=== PATIENT | male | born 1930 | race Caucasian/White ===

== ENCOUNTER 2016-11-05 08:46 | Inpatient (IN) | payer OTHER ==
--- NOTE | 2016-11-05 08:57 | PDOC ---
History of Present Illness - General Chief Complaint: Nausea/Vomiting Stated Complaint: N/V/D Time Seen by Provider: 11/05/16 08:52 - History of Present Illness Initial Comments: 11/05/16 08:52 Chief complaint: The patient has no complaints. However, his states that he awoke this morning confused, mildly disoriented, and unable to get out of bed or ambulate. History of present illness: He was in his usual state of health when he went to sleep last night. This morning he knew his name and where he was, but seemed confused about the time and kept repeating phrases. Review of systems: His states that he has had intermittent abdominal pain, difficulty swallowing solid food, with a sensation that the food was getting stuck in his chest, and experiencing vomiting. These symptoms have been present for several weeks and have been discussed with his primary physician, workup is in progress. He had 3 loose stools this morning. There's been no hematemesis melena or bloody stool. No fever or chills, URI symptoms, sore throat, cough, chest pain, shortness of breath, visual or focal neurologic symptoms, unsteadiness of gait. No dysuria frequency urgency or hesitancy. Remainder systems reviewed and found to be negative Past medical history: Insulin-dependent diabetes, GERD, prostate cancer with bone metastases,high blood pressure, chronic back pain requiring the use of a fentanyl patch, Evaluated with MRIs in the past. 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 No other surgeries. Social history: No tobacco alcohol or nonprescription drugs. Until this morning , fully ambulatory and care for himself Family history: Reviewed and noncontributory including early coronary artery disease, neurologic disease including aneurysms, metabolic disease including diabetes, and cancer Physical exam: Alert and oriented 3, well-developed well-nourished, mild distress secondary to abdominal pain, but cheerful and cooperative Temperature 100.8, remainder of vital signs stable Pale but nonicteric. Head atraumatic. PERRLA 3 mm, fundi benign. ENT clear Neck supple without bruit mass or nodes Lungs clear to P&A, but there is questionable dullness at the right base posteriorly CV S1 and S2 normal without murmur rub or gallop pulses full and symmetric no JVD or edema 90 and regular Abdomen mildly distended. Bowel sounds present and normal in character. There is moderate diffuse tenderness, with some voluntary guarding, and the suggestion of rebound in the right mid abdomen and right lower quadrant. Rectal exam prostate 3+ enlarged, firm, nontender, without nodules. Stool light brown, guaiac-negative. No other masses or tenderness Neurological C2 to 12 intact. Strength full and symmetric. No focal sensory or motor deficits. Not assessed Extremities no CCE Skin clear, no rash, adequate turgor, but mucous membranes somewhat dry Impression: Mental status changes, according to the , and abdominal pain. Recent history of difficulty swallowing solid food and intermittent vomiting. Distended abdomen and suggestive of peritoneal irritation. The mental status changes are nontraumatic, and may be due to infection or metabolic disease derangement. Abdominal signs and symptoms suggestive of possible appendicitis or diverticulitis. Metastatic prostate cancer is also consideration Plan: Laboratory and infection workup, had an abdominal CT, further evaluation depending on results. Plan: 11/05/16 10:16 11/05/16 10:21 11/05/16 14:12 Past History - Past Medical History Allergies/Adverse Reactions: Allergies Allergy/AdvReac Type Severity Reaction Status Date / Time No Known Drug Allergies Allergy Verified 11/05/16 08:48 Home Medications: Ambulatory Orders Pregabalin [Lyrica -] 100 mg PO TID 08/03/14 Docusate Sodium [Colace -] 100 mg PO PRN PRN 04/08/16 Insulin Glargine,Hum.rec.anlog [Lantus Solostar PEN (NF)] 16 units SQ DAILY 12/20 Venlafaxine HCl ER [Effexor Xr -] 37.5 mg PO DAILY 04/08/16 Fentanyl 150 mcg TD Q72H 11/05/16 Omeprazole 10 mg PO DAILY 11/05/16 Ramipril [Altace] 2.5 mg PO Q48H 11/05/16 Ranitidine HCl [Zantac] 150 mg PO DAILY 11/05/16 Anemia: No Asthma: No Cancer: No (PROSTATE WITH METS TO SPINE) Cardiac Disorders: No CVA: No COPD: Yes (PE many years ago) CHF: No Dementia: No Diabetes: Yes (TYPE I) GI Disorders: No Disorders: No HTN: No Hypercholesterolemia: No Liver Disease: No Psychiatric Problems: Yes (ANXIETY) Seizures: No Thyroid Disease: No - Surgical History Abdominal Surgery: Yes (ABD ADHESIONS) Appendectomy: Yes Cardiac Surgery: No Cholecystectomy: No Lung Surgery: No Neurologic Surgery: No Orthopedic Surgery: Yes (SEVERAL BACK SXS, LAST 03/2016) - Psycho/Social/Smoking Cessation Hx Anxiety: No Suicidal Ideation: No Smoking Status: No Smoking History: Former smoker Have you smoked in the past 12 months: No Number of Cigarettes Smoked Daily: 0 If you are a former smoker, when did you quit?: 1984 Hx Alcohol Use: Yes (COCKTAIL X1 DAILY) Drug/Substance Use Hx: No Substance Use Type: None Hx Substance Use Treatment: No ED Treatment Course - LABORATORY CBC & Chemistry Diagram: 11/05/16 09:18 11/05/16 09:18 Medical Decision Making - Medical Decision Making 11/05/16 14:[address] negative CT of the abdomen and pelvis shows a partial bowel obstruction, uncertain etiology. The patient has had similar in the past, beginning after appendectomy many years ago, always resolving with conservative treatment, no other surgeries. 11/05/16 14:20 Patient nothing by mouth, maintenance fluids begun, Dr. ruelas until contacted for admission, Dr. Carranza for surgical consultation. Fentanyl patch removed, morphine begun for pain control. Zofran for nausea. *DC/Admit/Observation/Transfer Diagnosis at time of Disposition: Partial bowel obstruction - Discharge Dispostion Condition at time of disposition: Stable Admit: Yes
[2016-11-05 09:31] LABS: BASOPHIL 0.4 % (0-2.0); EOSINOPHIL 0.1 % (0-4.5); MEAN CELL VOLUME 96.8 fl (80-96); MEAN PLT VOLUME 7.7 fl (7.5-11.1); NEUTROPHILS 79.9 % (42.8-82.8); PLATELET COUNT 381 K/MM3 (134-434); WHITE BLOOD COUNT 5.1 K/mm3 (4.0-10.0)
[2016-11-05 09:47] LABS: INR 1.1 (0.82-1.09)
[2016-11-05 09:50] LABS: CPK(DFH) 21 IU/L (38-174)
[2016-11-05 09:51] LABS: ALK PHOS 126 U/L (32-92); ANION GAP 14 (8-16); BILIRUBIN,TOTAL 0.7 mg/dl (0.2-1.0); CALCIUM 9.3 mg/dl (8.4-10.2); CO2 22 mmol/L (22-28); CREATININE 1.1 mg/dl (0.6-1.3); GLUCOSE,RANDOM 251 mg/dl (74-106); SGOT/AST 35 U/L (10-42); SGPT/ALT 31 U/L (10-40); TOT PROT 6.7 g/dl (6.4-8.3)
[2016-11-05 10:10] LABS: TROPONIN I (DFP) < 0.03 ng/ml (0.03-0.50)
[2016-11-05 14:02] LABS: URINE APPEARANCE Clear; URINE BILIRUBIN 1+ (NEGATIVE); URINE BLOOD Negative (NEGATIVE); URINE GLUCOSE (UA) Negative (NEGATIVE); URINE KETONE 1+ (NEGATIVE); URINE LEUK ESTERASE Negative (NEGATIVE); URINE NITRITE Negative (NEGATIVE); URINE UROBILINOGEN 0.2 E.U/dl (0.2-1.0)
[2016-11-05 14:03] LABS: URINE COLOR YELLOW; URINE PROTEIN 1+ (NEGATIVE)
--- NOTE | 2016-11-05 14:11 | PDOC ---
[id number]/V/D Time Seen by Provider: 11/05/16 08:52 - History of Present Illness Initial Comments: 11/12/16 07:23 Chief complaint: Nausea vomiting and abdominal pain History of present illness: Patient with above symptoms for several days. History of bowel obstructions in the past, beginning after an appendectomy in early life. Always resolved with conservative treatment, no further surgery has been necessary. Patient is anorexic but he is having bowel movements and passing gas. Review of systems: No fever/chills, URI symptoms, sore throat, cough, chest pain , shortness of breath, dysuria or frequency, visual or focal neurologic symptoms , unsteadiness of gait Past medical history: Recurrent obstructions as noted above. Otherwise noncontributory Social/family history reviewed and noncontributory Physical exam: Alert and oriented, mild distress due to abdominal pain, but cheerful and cooperative Afebrile, vital signs stable No pallor or icterus. PERRLA, ENT clear Neck supple without bruit mass or nodes Chest clear CV regular without murmur rub or gallop Abdomen mildly distended, but bowel sounds present and normal in character. Soft without mass. There is mild diffuse tenderness to palpation, most notably in the periumbilical region. There is no guarding or rebound exam normal Neurological intact Extremities no CCE Skin clear, no rash, adequate turgor and mucous membranes Impression: Most likely this is a recurrent partial bowel obstruction, no signs of systemic toxicity. Patient has had an appendicitis. Other possibilities are diverticulitis, kidney stone. Plan: Labs and CT. Surgical evaluation. Nothing by mouth and fluids. Past History - Past Medical History Allergies/Adverse Reactions: Allergies Allergy/AdvReac Type Severity Reaction Status Date / Time No Known Drug Allergies Allergy Verified 11/05/16 08:48 Home Medications: Ambulatory Orders Pregabalin [Lyrica -] 100 mg PO TID 08/03/14 Docusate Sodium [Colace -] 100 mg PO PRN PRN 04/08/16 Insulin Glargine,Hum.rec.anlog [Lantus Solostar PEN (NF)] 16 units SQ DAILY 12/20 Venlafaxine HCl ER [Effexor Xr -] 37.5 mg PO DAILY 04/08/16 Fentanyl 150 mcg TD Q72H 11/05/16 Omeprazole 10 mg PO DAILY 11/05/16 Ramipril [Altace] 2.5 mg PO Q48H 11/05/16 Ranitidine HCl [Zantac] 150 mg PO DAILY 11/05/16 Anemia: No Asthma: No Cancer: No (PROSTATE WITH METS TO SPINE) Cardiac Disorders: No CVA: No COPD: Yes (PE many years ago) CHF: No Dementia: No Diabetes: Yes (TYPE I) GI Disorders: No Disorders: No HTN: No Hypercholesterolemia: No Liver Disease: No Psychiatric Problems: Yes (ANXIETY) Seizures: No Thyroid Disease: No - Surgical History Abdominal Surgery: Yes (ABD ADHESIONS) Appendectomy: Yes Cardiac Surgery: No Cholecystectomy: No Lung Surgery: No Neurologic Surgery: No Orthopedic Surgery: Yes (SEVERAL BACK SXS, LAST 03/2016) - Psycho/Social/Smoking Cessation Hx Anxiety: No Suicidal Ideation: No Smoking Status: No Smoking History: Former smoker Have you smoked in the past 12 months: No Number of Cigarettes Smoked Daily: 0 If you are a former smoker, when did you quit?: 1985 Information on smoking cessation initiated: No Hx Alcohol Use: Yes (COCKTAIL X1 DAILY) Drug/Substance Use Hx: No Substance Use Type: None Hx Substance Use Treatment: No *Physical Exam - Vital Signs Last Vital Signs Temp Pulse Resp BP Pulse Ox 100.8 F H 89 18 129/85 97 11/05/16 09:15 11/05/16 13:41 11/05/16 13:41 11/05/16 13:41 11/05/16 13:41 ED Treatment Course - LABORATORY CBC & Chemistry Diagram: 11/10/16 07:15 11/11/16 05:30 - ADDITIONAL ORDERS Additional order review: Laboratory Results 11/05/16 11/05/16 11/05/16 13:58 09:30 09:18 INR Sodium Potassium Chloride Carbon Dioxide Anion Gap BUN Creatinine Creat Clearance w eGFR Random Glucose Lactic Acid 2.128 H* Calcium Total Bilirubin AST ALT Alkaline Phosphatase Creatine Kinase Troponin I Total Protein Albumin Urine Color Yellow Urine Appearance Clear Urine pH 5.0 Ur Specific [place] 1.010 Urine Protein 1+ H Urine Glucose (UA) Negative Urine Ketones 1+ H Urine Blood Negative Urine Nitrite Negative Urine Bilirubin 1+ H Urine Urobilinogen 0.2 e.u/dl Ur Leukocyte Esterase Negative Stool Occult Blood Negative 01/11/05/16 11/05/16 09:18 09:18 09:18 INR 1.10 Sodium 135 L Potassium 4.7 Chloride 99 Carbon Dioxide 22 Anion Gap 14 BUN 20 H D Creatinine 1.1 Creat Clearance w eGFR > 60 Random Glucose 251 H D Lactic Acid Calcium 9.3 Total Bilirubin 0.7 AST 35 ALT 31 Alkaline Phosphatase 126 H D Creatine Kinase 21 L Troponin I < 0.03 L Total Protein 6.7 Albumin 3.0 L Urine Color Urine Appearance Urine pH Ur Specific [place] Urine Protein Urine Glucose (UA) Urine Ketones Urine Blood Urine Nitrite Urine Bilirubin Urine Urobilinogen Ur Leukocyte Esterase Stool Occult Blood 11/05/16 09:18 RBC 4.16 MCV 96.8 H MCHC 32.0 RDW 13.0 D MPV 7.7 Neutrophils % 79.9 Lymphocytes % 6.0 L D Monocytes % 13.6 H Eosinophils % 0.1 D Basophils % 0.4 - RADIOLOGY Radiology Studies Ordered: Category Date Time Status ABDOMEN & PELVIS CT WITH CONTR [CT] Stat CT Scan 11/05/16 11:[address] WITHOUT CONTRAST [CT] Stat CT Scan 11/05/16 11:16 Completed CHEST X-RAY PORTABLE* [RAD] Stat Radiology 11/05/16 09:25 Completed Medical Decision Making - Medical Decision Making 11/12/16 07:29 Patient CBC, chemistries, and urine showed no significant abnormalities. Abdominal x-rays, however, show distended bowel and CT scan shows possible partial obstruction. Surgical consultation obtained from hospitalist surgery team. Discussed the case with the surgical PA, who will present the patient to the surgical attending. Discussed admission with Dr. Salazar, hospitalist, who will assume primary care incoordinated surgical consultation. Patient remains clinically stable, pain is controlled, and he is doing IV fluids. *DC/Admit/Observation/Transfer Diagnosis at time of Disposition: Partial bowel obstruction - Discharge Dispostion Condition at time of disposition: Stable Decision to Admit order Date/Time: Decision to Admit Order Category Date Time Status Decision to Admit to Hospital Routine Admission 11/05/16 14:09 Active - Referrals - Patient Instructions - Post Discharge Activity
[2016-11-05] MEDS ORDERED: SODIUM CHLORIDE 1,000 ML IV SCH (14:15)
[2016-11-05] MEDS ORDERED: morphine CARPU-JECT 4 MG/1 ML DISP.SYRIN IVPUSH ONE (14:16)
[2016-11-05] MEDS ORDERED: ONDANSETRON 4 MG/2 ML VIAL IVPB ONE (14:21)
[2016-11-05] MEDS ORDERED: ONDANSETRON 4 MG/2 ML VIAL ONE (14:48)
[2016-11-05] MEDS ORDERED: morphine CARPU-JECT 10 MG/1 ML DISP.SYRIN ONE (14:48)
[2016-11-05] MEDS: SODIUM CHLORIDE 1,000 ML IV SCH (14:52)
--- NOTE | 2016-11-05 15:57 | CONSULT ---
Consultation: REQUESTING PROVIDER:General Surgery- CONSULT REQUEST: We have been asked to surgically evaluate this patient for abd pain/nausea. HISTORY OF PRESENT ILLNESS:The patient is a 86 yo male with a PMHX of metastatic prostate cancer. He comes to the ER today with his . She states that he was confused this am and had nausea x2, last night and this am. She is unaware of any c/o abdominal pain. He states that he had a bowel movment last pm and this am. His abd feels ok now, although he remains nauseated. He has been receiving treatment for his metastatic prostate cancer. Last week he had radiation treatment at [facility]. His states that he has known mets to his sternum, rib and iliac crests. In he past he has had bowel obstruction, one which resulted in a exp lap 30 to 40 years ago. His more current obstruction have been treated with ngt placement. No fevers or chills. No urinary complaints. He has a h/o chronic back pain with surgery, wears a fentanyl patch. Also of note is a relatively recent c/o difficulty swallowing and had an upcoming appointment to see Dr. Horta. Also he was to have a sacroiliac injection today for pain(has been off aggrenox) PMHX: metstatic prostate CA, chronic back pain, carotid stenosis 60%(being followed by vascular surgery and no intervention has been recommended in the past.) PSHX: appendectomy, exp lap for bowel obstruction, spinal fusion REVIEW OF SYSTEMS: CONSTITUTIONAL: Absent: fever, chills CARDIOVASCULAR: Absent: chest pain, syncope, palpitations, irregular heart rate, peripheral edema RESPIRATORY: Absent: cough, shortness of breath. GASTROINTESTINAL: Present: abdominal pain,nausea, vomiting GENITOURINARY: Absent: dysuria, frequency, urgency, hesitancy, hematuria, h/o borderline elevated BUN(20) MUSCULOSKELETAL: Present: back pain SKIN: Absent: rash, itching, pallor HEMATOLOGIC/IMMUNOLOGIC: Present: easy bleeding, easy bruising(on aggrenox) Absent: frequent infections, no h/o DVT NEUROLOGIC: Absent: headache, focal weakness or paresthesias to his LE PHYSICAL EXAMINATION Vital Signs Temperature 100.8 F H 11/05/16 09:15 Pulse Rate 89 11/05/16 13:41 Respiratory Rate 18 11/05/16 13:41 Blood Pressure 129/85 11/05/16 13:41 O2 Sat by Pulse Oximetry (%) 97 11/05/16 13:41 GENERAL: Awake, alert, and fully oriented, in no acute distress. HEAD: Normal with no signs of trauma. EYES: Pupils equal, round and reactive to light, sclera anicteric, conjunctiva clear. NECK: Normal range of motion, supple without lymphadenopathy, JVD, or masses. LUNGS: Breath sounds equal, clear to auscultation bilaterally. No wheezes, and no crackles. No accessory muscle use. HEART: Regular rate and rhythm, normal S1 and S2 without murmur, rub or gallop. ABDOMEN: Soft, distended, tender to mid abdomen, healed scar(vertical) to RLQ and midline above suprapubic to umbilical region. No rebound MUSCULOSKELETAL: No bony deformities or tenderness. No CVA tenderness. UPPER EXTREMITIES: 2+ pulses, warm, well-perfused. No cyanosis. Cap refill <2 seconds. No peripheral edema. LOWER EXTREMITIES: 2+ pulses, warm, well-perfused. No calf tenderness. No peripheral edema. NEUROLOGICAL: Normal speech, gait not observed. PSYCH: Cooperative. Good eye contact. Appropriate mood and affect. SKIN: Warm, dry, normal turgor, no rashes or lesions noted. LABS: CBC, BMP 11/05/16 09:18 11/05/16 09:18 Laboratory Tests 11/05/16 11/05/16 11/05/16 09:18 09:30 13:58 Lactic Acid 2.128 H* Urine Color Yellow Urine Appearance Clear Urine pH 5.0 Ur Specific [place] 1.010 Urine Protein 1+ H Urine Glucose (UA) Negative Urine Ketones 1+ H Urine Blood Negative Urine Nitrite Negative Urine Bilirubin 1+ H Urine Urobilinogen 0.2 e.u/dl Ur Leukocyte Esterase Negative Stool Occult Blood Negative Laboratory Tests 11/05/16 13:[address] scan- oral contrast-dilated SB with transition point in mid ileum in RLQ, c/ w PSBO Head CT-no evidnece of acute hemmorhage, edema. ngt placed without difficutu, 700 ml bilious return. confirmed placement by auscultation <Emilia Cohen - Last Filed: 11/05/16 18:37> Consultation: REQUESTING PROVIDER: CONSULT REQUEST: We have been asked to surgically evaluate this patient for ( specify). HISTORY OF PRESENT ILLNESS: REVIEW OF SYSTEMS: CONSTITUTIONAL: Absent: fever, chills, diaphoresis, generalized weakness, malaise, loss of appetite, weight change CARDIOVASCULAR: Absent: chest pain, syncope, palpitations, irregular heart rate, lightheadedness , peripheral edema RESPIRATORY: Absent: cough, shortness of breath, dyspnea with exertion, orthopnea, wheezing, stridor, hemoptysis GASTROINTESTINAL: Absent: abdominal pain, abdominal distension, nausea, vomiting, diarrhea, constipation, melena, hematochezia GENITOURINARY: Absent: dysuria, frequency, urgency, hesitancy, hematuria, flank pain, genital pain MUSCULOSKELETAL: Absent: myalgia, arthralgia, joint swelling, back pain, neck pain SKIN: Absent: rash, itching, pallor HEMATOLOGIC/IMMUNOLOGIC: Absent: easy bleeding, easy bruising, lymphadenopathy, frequent infections NEUROLOGIC: Absent: headache, focal weakness or paresthesias, dizziness, unsteady gait, seizure, mental status changes, bladder or bowel incontinence PSYCHIATRIC: Absent: anxiety, depression, suicidal or homicidal ideation, hallucinations. PHYSICAL EXAMINATION Vital Signs Temperature 98.4 F 11/06/16 14:45 Pulse Rate 86 11/06/16 14:45 Respiratory Rate 17 11/06/16 14:45 Blood Pressure 129/57 11/06/16 14:45 O2 Sat by Pulse Oximetry (%) 94 L 11/06/16 14:45 GENERAL: Awake, alert, and fully oriented, in no acute distress. HEAD: Normal with no signs of trauma. EYES: Pupils equal, round and reactive to light, sclera anicteric, conjunctiva clear. NECK: Normal range of motion, supple without lymphadenopathy, JVD, or masses. LUNGS: Breath sounds equal, clear to auscultation bilaterally. No wheezes, and no crackles. No accessory muscle use. HEART: Regular rate and rhythm, normal S1 and S2 without murmur, rub or gallop. ABDOMEN: Soft, nontender, not distended, normoactive bowel sounds, no guarding, no rebound, no masses. No hepatomegaly or splenomegaly. MUSCULOSKELETAL: Normal range of motion at all joints. No bony deformities or tenderness. No CVA tenderness. UPPER EXTREMITIES: 2+ pulses, warm, well-perfused. No cyanosis. Cap refill <2 seconds. No peripheral edema. LOWER EXTREMITIES: 2+ pulses, warm, well-perfused. No calf tenderness. No peripheral edema. NEUROLOGICAL: Normal speech, gait not observed. PSYCH: Cooperative. Good eye contact. Appropriate mood and affect. SKIN: Warm, dry, normal turgor, no rashes or lesions noted. LABS: Laboratory Results - last 24 hr 11/05/16 11/05/16 11/05/16 18:43 20:45 23:21 WBC RBC Hgb Hct MCV MCHC RDW Plt Count MPV Neutrophils % Lymphocytes % Monocytes % Eosinophils % Basophils % Band Neutrophils Sodium Potassium Chloride Carbon Dioxide Anion Gap BUN Creatinine POC Glucometer 139 145 Random Glucose Lactic Acid 1.300 Calcium Phosphorus Magnesium 11/06/16 11/06/16 11/06/16 03:56 07:00 07:00 WBC 4.6 RBC 3.49 L Hgb 10.9 L D Hct 33.7 L D MCV 96.6 H MCHC 32.5 RDW 13.0 Plt Count 321 MPV 7.9 Neutrophils % 29.0 L D Lymphocytes % 36.0 D Monocytes % Programmer Analyst Eosinophils % Programmer Analyst Basophils % Programmer Analyst Band Neutrophils 26.0 H D Sodium 136 Potassium 3.9 Chloride 103 Carbon Dioxide 22 Anion Gap 11 BUN 18 Creatinine 1.0 POC Glucometer 131 Random Glucose 148 H D Lactic Acid Calcium 8.2 L Phosphorus 3.2 Magnesium 1.3 L 11/06/16 08:00 WBC RBC Hgb Hct MCV MCHC RDW Plt Count MPV Neutrophils % Lymphocytes % Monocytes % Eosinophils % Basophils % Band Neutrophils Sodium Potassium Chloride Carbon Dioxide Anion Gap BUN Creatinine POC Glucometer Random Glucose Lactic Acid 0.846 Calcium Phosphorus Magnesium Surgery Atteding Agree with ADRI Cohen's assessment and recommendations. <Gentry Begum - Last Filed: 11/06/16 17:35> Problem List - Problems (1) Partial bowel obstruction Assessment/Plan: Recommend npo/ngt decompression/IV hydration for CT scan finding of transition point in RLQ. NGT placed with 700 ml bilious outpt, also gimenez in place with approx 400ml clear/yellow urine. His lab values remain WNL, except for a borderline lactic acid, which was WNL after a repeat lab He has a slight fever, which improved as well as his tachardia. Dr. Begum, is dehydration plant operator and will be the consulting surgeon. I spoke with him reagarding the patients care. Code(s): K56.69 - OTHER INTESTINAL OBSTRUCTION <Emilia Cohen - Last Filed: 11/05/16 18:37> Visit type - Case Type Case Type: ED Admission - Emergency Emergency Visit: Yes ED Registration Date: 11/05/16 Care time: The patient presented to the Emergency Department on the above date and was hospitalized for further evaluation of their emergent condition. - New patient This patient is new to me today: Yes Date on this admission: 11/05/16 - Critical Care Critical Care patient: No <Emilia Cohen - Last Filed: 11/05/16 18:37>
[2016-11-05 17:46] VITALS: BMI 27.9
[2016-11-05] MEDS: INSULIN SLIDING SCALE (NOVOLOG) 1 VIAL SQ SCH ×2 (18:44→23:26)
[2016-11-05] MEDS: morphine CARPU-JECT 2 MG/1 ML DISP.SYRIN IVPUSH PRN (20:41)
--- NOTE | 2016-11-05 21:45 | HP ---
CHIEF COMPLAINT: Confusion, altered mental status PCP: Outen HISTORY OF PRESENT ILLNESS: This is a 86 year old male with a past medical history of DM, GERD, Prostate CA with bone mets, HTN, chronic back pain and recurrent SBO who presented to the emergency room today with altered mental status. His reported to the ED staff that he was in his usual state of health last evening when he went to bed , but when he awoke this morning he was confused, disoriented and unable to get out of bed or ambulate. She also reported that he was having intermittent abdominal pain with difficulty swallowing solid foods with a sensation of food stuck in chest. She reported 3 LBM as well. Upon exam, pt reports his stomach is "a little better." Denies nausea or abdominal pain. 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 HTN carotid stenosis, 60%, followed by vascular chronic back pain Recurrent SBO, ex lap 30-40 years ago then managed conservatively thereafter PAST SURGICAL HISTORY: Multiple back surgeries: T12-L4 laminectomy and posterior fusion on CT scan. appendectomy Social History: Smoking: in past, quit many years ago, smoked 1ppd for approx 20 years Alcohol: daily one cocktail, vodka on the [employer] Drugs: pt denies Family History: Mother age 88, cancer, unknown type father age 70s, [place], previous "mini strokes" Sister age 77, cancer, unknown type 4 children, all healthy Allergies No Known Drug Allergies Allergy (Verified 11/05/16 08:48) HOME MEDICATIONS: 3 Medication Instructions Recorded RX: Pregabalin [Lyrica -] 100 mg PO TID 08/03/14 Docusate Sodium [Colace -] 100 mg PO PRN PRN 04/08/16 Insulin Glargine,Hum.rec.anlog 16 units SQ DAILY 04/08/16 [Lantus Solostar PEN (NF)] Venlafaxine HCl ER [Effexor Xr -] 37.5 mg PO DAILY 04/08/16 RX: Fentanyl 150 mcg TD Q72H 11/05/16 RX: Omeprazole 10 mg PO DAILY 11/05/16 Ramipril [Altace] 2.5 mg PO Q48H 11/05/16 Ranitidine HCl [Zantac] 150 mg PO DAILY 11/05/16 REVIEW OF SYSTEMS CONSTITUTIONAL: Present: generalized weakness Absent: fever, chills, diaphoresis, malaise, loss of appetite, weight change HEENT: Absent: rhinorrhea, nasal congestion, throat pain, throat swelling, difficulty swallowing, mouth swelling, ear pain, eye pain, visual changes CARDIOVASCULAR: Absent: chest pain, syncope, palpitations, irregular heart rate, lightheadedness , peripheral edema RESPIRATORY: Absent: cough, shortness of breath, dyspnea with exertion, orthopnea, wheezing, stridor, hemoptysis GASTROINTESTINAL: Present: diarrhea Absent: abdominal pain, abdominal distension, nausea, vomiting, constipation, melena, hematochezia GENITOURINARY: Absent: dysuria, frequency, urgency, hesitancy, hematuria, flank pain, genital pain MUSCULOSKELETAL: Absent: myalgia, arthralgia, joint swelling, back pain, neck pain SKIN: Absent: rash, itching, pallor HEMATOLOGIC/IMMUNOLOGIC: Absent: easy bleeding, easy bruising, lymphadenopathy, frequent infections ENDOCRINE: Absent: unexplained weight gain, unexplained weight loss, heat intolerance, cold intolerance NEUROLOGIC: Present: mental status changes Absent: headache, focal weakness or paresthesias, dizziness, unsteady gait, seizure, bladder or bowel incontinence PSYCHIATRIC: Absent: anxiety, depression, suicidal or homicidal ideation, hallucinations. PHYSICAL EXAMINATION Vital Signs - 24 hr 3 11/05/16 11/05/16 11/05/16 08:47 09:15 10:13 Temperature 99.1 F 100.8 F H Pulse Rate 114 H Pulse Rate [ Apical] Respiratory 18 18 Rate Blood Pressure 98/55 Blood Pressure 99/57 [Left Arm] O2 Sat by Pulse 100 97 Oximetry (%) 3 11/05/16 11/05/16 11/05/16 13:41 16:33 17:38 Temperature 98.2 F 98.2 F Pulse Rate 97 H 92 H Pulse Rate [ 89 Apical] Respiratory 18 19 18 Rate Blood Pressure 137/62 137/62 Blood Pressure 129/85 [Left Arm] O2 Sat by Pulse 97 95 Oximetry (%) GENERAL: Awake, alert, and fully oriented, in no acute distress. HEAD: Normal with no signs of trauma. EYES: Pupils equal, round and reactive to light, extraocular movements intact, sclera anicteric, conjunctiva clear. No lid lag. EARS, NOSE, THROAT: Ears normal, nares patent, oropharynx clear without exudates. Moist mucous membranes. NECK: Normal range of motion, supple without lymphadenopathy, JVD, or masses. LUNGS: Breath sounds equal, clear to auscultation bilaterally. No wheezes, and no crackles. No accessory muscle use. HEART: Regular rate and rhythm, normal S1 and S2 without murmur, rub or gallop. ABDOMEN: Soft, slightly distended, generalized tenderness to palpation, normoactive bowel sounds, no guarding, no rebound, no masses. MUSCULOSKELETAL: Normal range of motion at all joints. No bony deformities or tenderness. No CVA tenderness. UPPER EXTREMITIES: 2+ pulses, warm, well-perfused. No cyanosis. No clubbing. Cap refill <2 seconds. No peripheral edema. LOWER EXTREMITIES: 2+ pulses, warm, well-perfused. No calf tenderness. No peripheral edema. NEUROLOGICAL: Cranial nerves II-XII intact. Normal speech. Normal gait. PSYCHIATRIC: Cooperative. Good eye contact. Appropriate mood and affect. SKIN: Warm, dry, normal turgor, no rashes or lesions noted. Laboratory Results - last 24 hr 3 11/05/16 11/05/16 11/05/16 11/05/16 11/05/16 11/05/16 09:18 09:18 09:18 09:30 13:05 18:43 WBC 5.1 D RBC 4.16 Hgb 12.9 Hct 40.2 MCV 96.8 H MCHC 32.0 RDW 13.0 D Plt Count 381 D MPV 7.7 Neutrophils % 79.9 Lymphocytes % 6.0 L D Monocytes % 13.6 H Eosinophils % 0.1 D Basophils % 0.4 INR 1.10 Sodium 135 L Potassium 4.7 Chloride 99 Carbon Dioxide 22 Anion Gap 14 BUN 20 H D Creatinine 1.1 Creat Clearance w eGFR > 60 POC Glucometer 139 Random Glucose 251 H D Lactic Acid 2.128 H* 1.155 Calcium 9.3 Total Bilirubin 0.7 AST 35 ALT 31 Alkaline Phosphatase 126 H D Creatine Kinase 21 L Troponin I < 0.03 L Total Protein 6.7 Albumin 3.0 L Urine Color Urine Appearance Urine pH Ur Specific [place] Urine Protein Urine Glucose (UA) Urine Ketones Urine Blood Urine Nitrite Urine Bilirubin Urine Urobilinogen Ur Leukocyte Esterase Stool Occult Blood Negative 3 Urine Color Yellow 11/05/16 13:58 Urine Appearance Clear 11/05/16 13:58 Urine pH 5.0 (4.5-8) 11/05/16 13:58 Ur Specific [place] 1.010 (1.005-1.025) 11/05/16 13:58 Urine Protein 1+ (NEGATIVE) H 11/05/16 13:58 Urine Glucose (UA) Negative (NEGATIVE) 11/05/16 13:58 Urine Ketones 1+ (NEGATIVE) H 11/05/16 13:58 Urine Blood Negative (NEGATIVE) 11/05/16 13:58 Urine Nitrite Negative (NEGATIVE) 11/05/16 13:58 Urine Bilirubin 1+ (NEGATIVE) H 11/05/16 13:58 Ur Leukocyte Esterase Negative (NEGATIVE) 11/05/16 13:58 CT abdomen/pelvis: Impression: Findings consistent with partial SBO of uncertain etiology. Clinical correlation and follow-up recommended. Please see discussion. CT head: Impression: No evidence of acute intracranial hemorrhage, edema, midline shift, mass effect, or skull fracture. No CT evidence of acute territorial infarction. ECG: Sinus rhythm, 1st degree AV block, no obvious ST/T wave changes ASSESSMENT/PLAN: 86yM with PMH DM, GERD, Prostate CA with bone mets, HTN, chronic back pain and recurrent SBO who presented to the emergency room today with altered mental status. He is being admitted for partial SBO. Partial SBO - surgical consult appreciated. - NGT in place, verified with KUB, tip in stomach, cont NGT - Cont NPO, NS @ 100cc/hr - xray in am DM - hold home Janumet - BGM q6h with novolog sliding scale - if BGM consistently elevated, would start levemir 8u daily (50% home lantus dose as pt is npo) HTN - monitor BP, no oral meds due to NPO/SBO, can give enalapril IV if SBP>150 GERD - protonix iv daily Prostate CA with bone mets - cont fentanyl patch q3d, dose recently increased to 150mcg from 100, will restart 100mcg/hr FEN - NS @100cc/hr - BMP in am with Mg and Phos - NPO DVT PPX - hold heparin for now, may need to go to OR Dispo: pt currently requires inpatient care. Visit type - Emergency Visit Emergency Visit: Yes ED Registration Date: 11/05/16 Care time: The patient presented to the Emergency Department on the above date and was hospitalized for further evaluation of their emergent condition. - New Patient This patient is new to me today: Yes Date on this admission: 11/05/16 - Critical Care Critical Care patient: No
[2016-11-05] MEDS ORDERED: ENALAPRILAT DIHYDRATE 1.25 MG/1 ML VIAL IVPB PRN (22:10)
[2016-11-05] MEDS ORDERED: FENTANYL PATCH WASTE TD PRN (22:15)
[2016-11-05] MEDS: fentaNYL 100mcg/hr PATCH.TD72 TD SCH (23:25)
[2016-11-06] MEDS: INSULIN SLIDING SCALE (NOVOLOG) 1 VIAL SQ SCH ×2 (03:58→20:42)
[2016-11-06] MEDS: morphine CARPU-JECT 2 MG/1 ML DISP.SYRIN IVPUSH PRN (04:36)
[2016-11-06 08:02] LABS: MCH 31.4 pg (25.7-33.7); MCHC 32.5 g/dl (32.0-35.9); MEAN CELL VOLUME 96.6 fl (80-96); MEAN PLT VOLUME 7.9 fl (7.5-11.1); PLATELET COUNT 321 K/MM3 (134-434); WHITE BLOOD COUNT 4.6 K/mm3 (4.0-10.0)
[2016-11-06 08:20] LABS: CALCIUM 8.2 mg/dl (8.4-10.2); MAGNESIUM 1.3 mg/dL (1.8-2.4); PHOSPHOROUS 3.2 mg/dl (2.5-4.6)
[2016-11-06] MEDS ORDERED: MAGNESIUM SULFATE 2 GM in SODIUM CHLORIDE 100 ML IVPB ONE (08:24)
[2016-11-06] MEDS ORDERED: MAGNESIUM SULF 50% (8.12 MEQ/2 ML-1 GM VIAL) IVPB ONE (09:00)
[2016-11-06] MEDS: METRONIDAZOLE 500 MG PREMIXED 100 ML IVPB SCH ×2 (10:00→18:11)
[2016-11-06] MEDS ORDERED: CEFTRIAXONE 50 ML IVPB SCH (10:00)
[2016-11-06] MEDS: PANTOPRAZOLE SODIUM 100 ML IVPB SCH (10:00)
--- NOTE | 2016-11-06 10:08 | PN ---
Progress Note (short form) - Note Progress Note: ID Consult dictated Recurrent partial SBO Fever, possible sepsis secondary to GI source Altered mental status, possible toxic-metabolic encephalopathy Pending sepsis workup, empiric zosyn/ flagyl
[2016-11-06] MEDS: PIPERACILLIN/TAZOB 3.375 GM 50 ML IVPB SCH ×2 (10:30→17:00)
--- NOTE | 2016-11-06 10:32 | PN ---
[id number]. OBJECTIVE: patientis a 86 year old male with a past medical history of DM, GERD , Prostate CA with bone mets, HTN, chronic back pain and recurrent SBO (S/P exploratory lap, lysis of adhesion, appendectomy). Patient was admitted from the emergency department for a partial small bowel obstruction Vital Signs Period Temp Pulse Resp BP Sys/Kim Pulse Ox Last 24 Hr 98.2 F-102.1 F 91-97 18-19 117-137/44-62 94-95 GENERAL: The patient is awake, alert, and fully oriented, in no acute distress. HEAD: Normal with no signs of trauma. EYES: PERRL, extraocular movements intact, sclera anicteric, conjunctiva clear. No ptosis. ENT: Ears normal, nares patent, oropharynx clear without exudates, moist mucous membranes. NECK: Trachea midline, full range of motion, supple. LUNGS: Breath sounds equal, clear to auscultation bilaterally to apexes, diminished at bases, no wheezes, no crackles, no accessory muscle use. HEART: Regular rate and rhythm, S1, S2 without murmur, rub or gallop. ABDOMEN: Soft, nontender, nondistended, normoactive bowel sounds, no guarding, no rebound, no hepatosplenomegaly, no masses.diffuse abdominal tenderness, scant bowel sounds noted to the right upper quadrant of abdomen EXTREMITIES: 2+ pulses, warm, well-perfused, no edema. NEUROLOGICAL: Cranial nerves II through XII grossly intact. Normal speech, gait not observed. PSYCH: Normal mood, normal affect. SKIN: Warm, dry, normal turgor, no rashes or lesions noted Laboratory Results - last 24 hr 11/05/16 11/05/16 11/05/16 18:43 20:45 23:21 WBC RBC Hgb Hct MCV MCHC RDW Plt Count MPV Neutrophils % Lymphocytes % Monocytes % Eosinophils % Basophils % Band Neutrophils Sodium Potassium Chloride Carbon Dioxide Anion Gap BUN Creatinine POC Glucometer 139 145 Random Glucose Lactic Acid 1.300 Calcium Phosphorus Magnesium 11/06/16 11/06/16 11/06/16 03:56 07:00 07:00 WBC 4.6 RBC 3.49 L Hgb 10.9 L D Hct 33.7 L D MCV 96.6 H MCHC 32.5 RDW 13.0 Plt Count 321 MPV 7.9 Neutrophils % 29.0 L D Lymphocytes % 36.0 D Monocytes % Claim Representative Eosinophils % Claim Representative Basophils % Claim Representative Band Neutrophils 26.0 H D Sodium 136 Potassium 3.9 Chloride 103 Carbon Dioxide 22 Anion Gap 11 BUN 18 Creatinine 1.0 POC Glucometer 131 Random Glucose 148 H D Lactic Acid Calcium 8.2 L Phosphorus 3.2 Magnesium 1.3 L Active Medications Generic Name Dose Route Start Last Admin Trade Name Freq PRN Reason Stop Dose Admin Enalaprilat 2.5 mg 11/05/16 22:10 Vasotec Injection - IVPB DAILY PRN HYPERTENSION Fentanyl 1 patch 11/05/16 22:15 11/05/16 23:25 Duragesic 100mcg Patch - TD 11/12/16 22:16 1 patch Q72H MANNY Administration Sodium Chloride 1,000 mls @ 100 mls/hr 11/05/16 14:30 11/05/16 14:52 Normal Saline - IV 100 mls/hr ASDIR MANNY Administration Pantoprazole Sodium 100 mls @ 200 mls/hr 11/06/16 10:00 Protonix 40mg Ivpb (Pre-Docked) IVPB DAILY MANNY Metronidazole 100 mls @ 100 mls/hr 11/06/16 10:00 Flagyl 500mg Premixed Ivpb - IVPB Q8H-IV MANNY Piperacillin Sod/Tazobactam Sod 50 mls @ 100 mls/hr 11/06/16 10:30 Zosyn 3.375gm Ivpb (Pre-Docked) IVPB Q8H-IV MANNY Insulin Aspart 0 vial 11/05/16 14:30 11/06/16 03:58 Novolog Vial Sliding Scale - SQ Not Given Q6H [facility] Protocol Miscellaneous 1 each 11/05/16 22:15 Duragesic Patch Waste TD PRN PRN PAIN Morphine Sulfate 2 mg 11/05/16 14:16 11/06/16 04:36 Morphine Injection - IVPUSH 2 mg Q4H PRN Administration PAIN Microbiology 11/05/16 09:00 Blood - Peripheral Venous Blood Culture - Preliminary NO GROWTH OBTAINED AFTER 24 HOURS, INCUBATION TO CONTINUE FOR 4 DAYS. 11/05/16 09:15 Blood - Peripheral Venous Blood Culture - Preliminary NO GROWTH OBTAINED AFTER 24 HOURS, INCUBATION TO CONTINUE FOR [address] scan- oral contrast-dilated SB with transition point in mid ileum in RLQ, c/ w PSBO Head CT-no evidnece of acute hemmorhage, edema. ASSESSMENT/PLAN: 1)GI: partial small bowel obstruction - ct scan noted, repeat KUB noted, consistent with partial SBO - continue NGT to LCWS - tmax 102.0 noted, will start rocephin and flagyl, concerned for sepsis from GI tract, appreciate ID input for abx clearence for zosyn - lactic acid wnl, continue ivf - General surgery consulted and followed, Dr. hull - appreciate GI input Dr. Horta 2) hem/onc: prostate CA with mets - continue fentanyl patch 100cq (home dose) - continue PRN morphine 3) card hypertension - continue vasotec prn f/e/n -nothing by mouth - ivf ppx protonix SCD Hold AC pt may require or dispo:requires inpatient care, plan of care discussed with at bedside, agrees with plan. Visit type - Emergency Visit Emergency Visit: Yes ED Registration Date: 11/05/16 Care time: The patient presented to the Emergency Department on the above date and was hospitalized for further evaluation of their emergent condition. - New Patient This patient is new to me today: No - Critical Care Critical Care patient: No - Discharge Referral Referred to [facility] Med P.C.: Yes Physician Referral: Renan Sheth MD (Int Med)
--- NOTE | 2016-11-06 12:57 | CONS ---
DATE OF CONSULTATION: DATE OF DICTATION: 11/06/2016 The patient is an 86-year-old male with a history of recurrent small-bowel obstruction, now evaluated for fever. The patient had a history of appendectomy approximately 60 years ago. Since that time, he has had numerous episodes of recurrent bowel obstruction. His only laparoscopic procedure was approximately 10 years after his appendectomy for lysis of adhesions. Subsequent to that, he has been managed conservatively, with resolution of bowel obstruction. He is now admitted to the hospital with worsening dysphagia to solids for several weeks associated with intermittent abdominal pain. His reported increasing confusion, generalized weakness, and inability to ambulate. He was taken to the hospital, where a CAT scan was performed and showed evidence of recurrent partial bowel obstruction. He denied any nausea vomiting. He did have 3 soft bowel movements on the day of admission. At the present time he is awake and alert. He answers appropriately. He complains of some left paraumbilical tenderness. He reports passing flatus and having 2 loose bowel movements today. An NG tube is in place and is draining biliary fluid. His course has now been complicated by fever to 102.4 as well as left shift on his white blood cell count. He required insertion of a Campbell catheter for urinary retention. Past medical history positive for prostate cancer with extensive bony metastasis to the sternum, rib cage, and iliac crest. He is status post radiation therapy, diabetes mellitus, gastroesophageal reflux, carotid stenosis, hypertension. PAST SURGICAL HISTORY: Status post appendectomy approximately 60 years ago. He has also had spine surgery and has spinal hardware in place. No known allergies. SOCIAL HISTORY: Resides at home with his , who is a retired RN. He is a former smoker, occasional EtOH. No recent travel or pet exposure. SYSTEMS REVIEW: Neurologic: Positive for altered mental status. No loss of consciousness, seizure activity, or focal weakness. Cardiac: Negative chest pain or palpitations. Respiratory: Negative cough or sputum production. Gastrointestinal: As per HPI. Genitourinary: Negative for urinary tract infection. LABORATORY DATA: White count 4.6 with left shift, hematocrit 33.7, platelet count 321. BUN 18, creatinine 1.0. Chest x-ray negative for acute infiltrate. PHYSICAL EXAMINATION: General: He is awake and alert. He is in no acute distress. Vital Signs: Temperature 99.5, T-max 102.1. Blood pressure 129/46. Pulse 96, regular. Respirations 18 per minute. ENT: Sclerae anicteric. NG tube is in place, draining bilious fluid. Heart Sounds: S1, S2. Lungs: Clear. Abdomen: No appreciable bowel sounds. Abdomen is soft. There is some left paraumbilical tenderness. No mass, rebound or rigidity. Extremities: Negative for edema. IMPRESSION: 1. Recurrent partial small-bowel obstruction. 2. Fever, possible sepsis secondary to gastrointestinal focus. 3. Probable toxic metabolic encephalopathy. Pending cultures, empiric coverage of bowel pathogens with Zosyn and Flagyl. Continue NG tube suction, surgical followup. We will follow. Case discussed with patient's present at the time of the examination. Thank you for the kind referral. HARVINDER KHALIL M.D. [id number]
--- NOTE | 2016-11-06 16:10 | PN ---
Progress Note (short form) - Note Progress Note: Pt seen and examined this am. His ngt fell out last pm and was replaced by the night staff with xray to confirm position. No further BM overnight but with speaking with the nursing staff thruout the day he has had two Bm's. Vital Signs Period Temp Pulse Resp BP Sys/Kim Pulse Ox Last 24 Hr 98.2 F-102.1 F 86-97 17-19 117-137/44-62 94-95 gimenez-1600 ngt-1350(as of am total) PE: GEN: alert CV: RRR Lungs: CTA b/l Abd: soft, diffuse tenderness to mid abd and LLQ CBC, BMP 11/06/16 07:00 11/06/16 07:00 Laboratory Tests 11/06/16 08:00 Lactic Acid 0.846 <Emilia Cohen - Last Filed: 11/06/16 16:23> - Note Progress Note: Surgery Attending Patient had 2 BM's today and feels better. Abdomen is soft but still has mild LLQ tenderness. NGT drainage decreased and less bilious. A: Resolving partial SBO Rec: continue NGT decompression F/U FUA in am Possible NGT removal if patient continues to pass flatus/stool with minimal NGT drainage. <Gentry Begum - Last Filed: 11/06/16 17:39> Problem List - Problems (1) Partial bowel obstruction Assessment/Plan: Pt with fever overnight, without any leukocytosis, electrolytes and lactic acid remains WNL. NGT continues to drain, pt now with BM. Reviewed abd xray with Dr. BEGUM and shows improvement. Do GO to evaluate the patient today, pt appears to be improving and remains clinically stable. Of concern is the temp spike to 102. IV abx stated by the medical team. Surgery to continue to follow the patient. For now continue conservative management. Code(s): K56.69 - OTHER INTESTINAL OBSTRUCTION <Emilia Cohen - Last Filed: 11/06/16 16:23>
--- NOTE | 2016-11-06 23:33 | EKG ---
Test Reason : Blood Pressure : / mmHG Vent. Rate : 088 BPM Atrial Rate : 088 BPM P-R Int : 246 ms QRS Dur : 110 ms QT Int : 352 ms P-R-T Axes : 047 -41 106 degrees QTc Int : 425 ms SINUS RHYTHM WITH 1ST DEGREE A-V BLOCK LEFT AXIS DEVIATION LEFT VENTRICULAR HYPERTROPHY WITH REPOLARIZATION ABNORMALITY ABNORMAL ECG NO PREVIOUS ECGS AVAILABLE Confirmed by CHRISTIAN WHITE MD ([id number]) on 11/06/2016 11:32:55 PM Referred By: MARIE Confirmed By:CHIRSTIAN WHITE MD
[2016-11-07] MEDS: morphine CARPU-JECT 2 MG/1 ML DISP.SYRIN IVPUSH PRN ×2 (00:04→23:47)
[2016-11-07] MEDS: PIPERACILLIN/TAZOB 3.375 GM 50 ML IVPB SCH ×3 (01:53→17:14)
[2016-11-07] MEDS: METRONIDAZOLE 500 MG PREMIXED 100 ML IVPB SCH ×3 (01:53→19:51)
[2016-11-07] MEDS: INSULIN SLIDING SCALE (NOVOLOG) 1 VIAL SQ SCH (03:18)
[2016-11-07 08:45] LABS: EOSINOPHIL 3.3 % (0-4.5); MCH 31.8 pg (25.7-33.7); MCHC 32.5 g/dl (32.0-35.9); MEAN CELL VOLUME 97.9 fl (80-96); MEAN PLT VOLUME 7.9 fl (7.5-11.1); NEUTROPHILS 66.4 % (42.8-82.8); PLATELET COUNT 316 K/MM3 (134-434); RDW 13.1 % (11.9-15.9); WHITE BLOOD COUNT 4.4 K/mm3 (4.0-10.0)
--- NOTE | 2016-11-07 08:58 | PN ---
Physical Exam: SUBJECTIVE: Patient seen and examined, patient reports nausea and abdominal discomfort, NGT clamped and developed nausea within 15 minutes, 400ml of NGT residual noted last evening OBJECTIVE: patient is 86 year old male with a past medical history of DM, GERD , Prostate CA with bone mets, HTN, chronic back pain and recurrent SBO (S/P exploratory lap, lysis of adhesion, appendectomy). Patient was admitted from the emergency department for a partial small bowel obstruction Vital Signs Period Temp Pulse Resp BP Sys/Kim Pulse Ox Last 24 Hr 98.4 F-98.6 F 69-86 16-19 129-132/53-68 93-95 Intake & Output 11/06/16 11/07/16 11/07/16 23:59 07:59 15:59 Intake Total 0 1200 Output Total 850 800 Balance -850 400 Intake: IV 1100 Normal Saline - 1,000 ml 1100 @ 100 mls/hr IV ASDIR MANNY Rx#:[id number] IVPB 100 Oral 0 Output: Gastric Drainage 450 400 Urine 400 400 Campbell 400 400 Other: Voiding Method Indwelling Catheter GENERAL: The patient is awake, alert, and fully oriented, in no acute distress. HEAD: Normal with no signs of trauma. EYES: PERRL, extraocular movements intact, sclera anicteric, conjunctiva clear. No ptosis. ENT: Ears normal, nares patent, oropharynx clear without exudates, moist mucous membranes. NECK: Trachea midline, full range of motion, supple. LUNGS: Breath sounds equal, clear to auscultation bilaterally, no wheezes, no crackles, no accessory muscle use. HEART: Regular rate and rhythm, S1, S2 without murmur, rub or gallop. ABDOMEN: Soft, slightly distended, tenderness to epigastrium, hypoactive bowel sounds, no guarding, no rebound, no hepatosplenomegaly, no masses. EXTREMITIES: 2+ pulses, warm, well-perfused, no edema. NEUROLOGICAL: Cranial nerves II through XII grossly intact. Normal speech, gait not observed. PSYCH: Normal mood, normal affect. SKIN: Warm, dry, normal turgor, no rashes or lesions noted Laboratory Results - last 24 hr 11/06/16 11/06/16 11/06/16 07:00 08:00 18:22 WBC RBC Hgb Hct MCV MCHC RDW Plt Count MPV Neutrophils % 29.0 L D Lymphocytes % 36.0 D Monocytes % Eosinophils % Basophils % Band Neutrophils 26.0 H D POC Glucometer 96 Lactic Acid 0.846 11/06/16 11/07/16 11/07/16 20:25 03:14 08:29 WBC 4.4 RBC 3.21 L Hgb 10.2 L Hct 31.4 L MCV 97.9 H MCHC 32.5 RDW 13.1 Plt Count 316 MPV 7.9 Neutrophils % 66.4 D Lymphocytes % 10.0 D Monocytes % 19.3 H Eosinophils % 3.3 D Basophils % 1.0 Band Neutrophils POC Glucometer 101 94 Lactic Acid Active Medications Generic Name Dose Route Start Last Admin Trade Name Freq PRN Reason Stop Dose Admin Enalaprilat 2.5 mg 11/05/16 22:10 Vasotec Injection - IVPB DAILY PRN HYPERTENSION Fentanyl 1 patch 11/05/16 22:15 11/05/16 23:25 Duragesic 100mcg Patch - TD 11/12/16 22:16 1 patch Q72H MANNY Administration Sodium Chloride 1,000 mls @ 100 mls/hr 11/05/16 14:30 11/05/16 14:52 Normal Saline - IV 100 mls/hr ASDIR MANNY Administration Pantoprazole Sodium 100 mls @ 200 mls/hr 11/06/16 10:00 11/06/16 10:00 Protonix 40mg Ivpb (Pre-Docked) IVPB 200 mls/hr DAILY MANNY Administration Metronidazole 100 mls @ 100 mls/hr 11/06/16 10:00 11/07/16 01:53 Flagyl 500mg Premixed Ivpb - IVPB 100 mls/hr Q8H-IV MANNY Administration Piperacillin Sod/Tazobactam Sod 50 mls @ 100 mls/hr 11/06/16 10:30 11/07/16 01: 53 Zosyn 3.375gm Ivpb (Pre-Docked) IVPB 100 mls/hr Q8H-IV MANNY Administration Insulin Aspart 0 vial 11/05/16 14:30 11/07/16 03:18 Novolog Vial Sliding Scale - SQ Not Given Q6H MANNY Protocol Miscellaneous 1 each 11/05/16 22:15 Duragesic Patch Waste TD PRN PRN PAIN Morphine Sulfate 2 mg 11/05/16 14:16 11/07/16 00:04 Morphine Injection - IVPUSH 2 mg Q4H PRN Administration PAIN Microbiology 11/05/16 09:00 Blood - Peripheral Venous Blood Culture - Preliminary NO GROWTH OBTAINED AFTER 24 HOURS, INCUBATION TO CONTINUE FOR 4 DAYS. 11/05/16 09:15 Blood - Peripheral Venous Blood Culture - Preliminary NO GROWTH OBTAINED AFTER 24 HOURS, INCUBATION TO CONTINUE FOR [address] scan- oral contrast-dilated SB with transition point in mid ileum in RLQ, c/ w PSBO Head CT-no evidnece of acute hemmorhage, edema. KUB (11/06/16), slight decrease in bowel loops ASSESSMENT/PLAN: 1)GI: partial small bowel obstruction - xray noted from 11/06, pt still has nausea, unable to tolerate NGT clamping, repeat KUB ordered - continue NGT to intermittent LWS - pt afebrile, agree with ID, continue zosyn and flagyl - continue IVF - General surgery consulted and following, Dr. hull - GI consulted and followed 2) hem/onc: prostate CA with mets - continue fentanyl patch 100cq (home dose) - continue PRN morphine 3) card hypertension - continue vasotec prn f/e/n -nothing by mouth - replete magnesium - ivf ppx protonix SCD Hold AC pt may require or dispo:requires inpatient care, plan of care discussed with at bedside, agrees with plan. Visit type - Emergency Visit Emergency Visit: Yes ED Registration Date: 11/05/16 Care time: The patient presented to the Emergency Department on the above date and was hospitalized for further evaluation of their emergent condition. - New Patient This patient is new to me today: No - Critical Care Critical Care patient: No - Discharge Referral Referred to [facility] Yes Physician Referral: Jerome Abreu MD (Int Med)
[2016-11-07 09:13] LABS: CALCIUM 7.7 mg/dl (8.4-10.2)
--- NOTE | 2016-11-07 09:14 | PN ---
Progress Note, Physician History of Present Illness: C/O diffuse abdominal discomfort NGT in place + Flatus No BM today Afebrile No BM today WBC WNL BC (-) - Current Medication List Current Medications: Active Medications Enalaprilat (Vasotec Injection -) 2.5 mg IVPB DAILY PRN PRN Reason: HYPERTENSION Fentanyl (Duragesic 100mcg Patch -) 1 patch TD Q72H MANNY Stop: 11/12/16 22:16 Last Admin: 11/05/16 23:25 Dose: 1 patch Sodium Chloride (Normal Saline -) 1,000 mls @ 100 mls/hr IV ASDIR MANNY Last Admin: 11/05/16 14:52 Dose: 100 mls/hr Pantoprazole Sodium (Protonix 40mg Ivpb (Pre-Docked)) 100 mls @ 200 mls/hr IVPB DAILY [facility] Last Admin: 11/06/16 10:00 Dose: 200 mls/hr Metronidazole (Flagyl 500mg Premixed Ivpb -) 100 mls @ 100 mls/hr IVPB Q8H-IV MANNY Last Admin: 11/07/16 01:53 Dose: 100 mls/hr Piperacillin Sod/Tazobactam Sod (Zosyn 3.375gm Ivpb (Pre-Docked)) 50 mls @ 100 mls/hr IVPB Q8H-IV MANNY Last Admin: 11/07/16 01:53 Dose: 100 mls/hr Insulin Aspart (Novolog Vial Sliding Scale -) 0 vial SQ Q6H MANNY PRN Reason: Protocol Last Admin: 11/07/16 03:18 Dose: Not Given Miscellaneous (Duragesic Patch Waste) 1 each TD PRN PRN PRN Reason: PAIN Morphine Sulfate (Morphine Injection -) 2 mg IVPUSH Q4H PRN PRN Reason: PAIN Last Admin: 11/07/16 00:04 Dose: 2 mg - Objective Vital Signs: Vital Signs Temperature 98.6 F 11/07/16 05:00 Pulse Rate 69 11/07/16 05:00 Respiratory Rate 18 11/07/16 05:00 Blood Pressure 132/68 11/07/16 05:00 O2 Sat by Pulse Oximetry (%) 93 L 11/07/16 05:00 Constitutional: Yes: No Distress Eyes: Yes: Conjunctiva Clear Cardiovascular: Yes: Regular Rate and Rhythm, S1, S2 Respiratory: Yes: CTA Bilaterally Gastrointestinal: Yes: Tenderness, Other (+BS , hypoactive mild diffuse tenderness to palp no mass/rebound/ rigidity) Edema: LLE: Trace, RLE: Trace Labs: CBC, BMP 11/07/16 08:29 INR, PTT INR 1.10 (0.82-1.09) 11/05/16 09:18 Assessment/Plan Recurrent partial SBO Fever- resolved Possible toxic-metabolic encephalopathy Continue empiric zosyn/ flagyl
[2016-11-07] MEDS: PANTOPRAZOLE SODIUM 100 ML IVPB SCH (10:00)
--- NOTE | 2016-11-07 10:44 | PN ---
Progress Note (short form) - Note Progress Note: Pt seen and examined this am. He states that his abd feels better. Yesterday he had a large bowel movement. No nausea. Vital Signs Period Temp Pulse Resp BP Sys/Kim Pulse Ox Last 24 Hr 98.4 F-98.6 F 69-86 16-18 129-132/53-68 93-95 NGT-850 bilious FC-1400 clear/yellow urine PE: GEN: alert and appears comfortable ABD: soft, non-distended, non-tender CBC, BMP 11/07/16 08:29 11/07/16 08:29 Problem List - Problems (1) Partial bowel obstruction Assessment/Plan: Pt without any fevers, abdomen non tender today. He had another bowel movement. NGT clamped today, check residual in 4 hours and ordered repeat AXR-portable oob/ambulate remove gimenez cath for trial of void electrolytes WNL Code(s): K56.69 - OTHER INTESTINAL OBSTRUCTION
--- NOTE | 2016-11-07 10:45 | PN ---
Progress Note (short form) - Note Progress Note: Surgery Attending Patient continues to pass flatus, c/o mild abdominal pain Afebrile, VSS NGT = 50 in cannister since AM shift Abd: soft, mild LLQ tenderness No leukocystosis FUA pending A: Resolving partial SBO R: f/u FUA reclamp NGT if above is unchanged and check residuals q 4 hours
[2016-11-07 12:29] LABS: MAGNESIUM 1.5 mg/dL (1.8-2.4); PHOSPHOROUS 2.3 mg/dl (2.5-4.6)
[2016-11-07] MEDS ORDERED: MAGNESIUM SULFATE 2 GM in SODIUM CHLORIDE 100 ML IVPB ONE (12:38)
[2016-11-07] MEDS ORDERED: MAGNESIUM SULF 50% (8.12 MEQ/2 ML-1 GM VIAL) IVPB ONE (13:00)
[2016-11-07] MEDS ORDERED: POTASSIUM PHOSPHATE 15 MM in SODIUM CHLORIDE 250 ML IVPB ONE (13:30)
--- NOTE | 2016-11-07 13:54 | PN ---
Progress Note (short form) - Note Progress Note: Patient seen and consult dictated. Patient with admission for SBO ?due to adhesions; seen for prior issue of dysphagia to solids. Agree with current Rx for SBO with NG decompression and monitoring - patient has had SBO in the past due to adhesions from prior surgeries. However, he has also been complaining of dysphagia to solids for several weeks; tolerating liquids well. May have some mild GERD symptoms in past. No swallowing complaints previously. Unable to assess at present due to presence of NG tube but diff dx includes an esophageal stricture causing esophageal narrowing. Would empirically start patient on PPI (IV until able to take PO) and eventually will schedule for Barium esophagram (and possible EGD). Discussed with patient and .
--- NOTE | 2016-11-07 17:26 | CONS ---
DATE OF CONSULTATION: 11/07/2016 I was asked to evaluate this 86-year-old gentleman with swallowing complaints. The patient is an 86-year-old gentleman admitted to the hospital with abdominal pain and distention and a diagnosis of small-bowel obstruction. He also has a history of diabetes mellitus, gastroesophageal reflux, prostate cancer with bone metastasis, hypertension, and low back pain. He does have a history of prior bowel obstructions, presumably due to adhesions from prior surgeries. He also has been having at least a several-week history of difficulty swallowing solids but not liquids. The patient is currently seen in the hospital with an NG tube in place and some drainage. His initial x-rays and CAT scans are consistent with a small-bowel obstruction. There was no notation on the CAT scan of there being any mass in the chest or esophageal region. The patient has no prior history of dysphagia, with the exception of his recent complaints and has not been taking medications in the past for reflux or peptic disease. He does state that prior to his current hospitalization, his appetite has been good but he has been unable to swallow solids and has lost some weight. On exam, he is a well-developed elderly gentleman with pink conjunctivae, a soft abdomen, bowel sounds are diminished, he has an NG tube in place to suction. Patient with ongoing small-bowel obstruction which is being treated conservatively with an NG tube to decompression. He has a separate complaint of dysphagia to solids, which cannot be evaluated at the current time, especially with the NG tube in place. Will await for the resolution of the small-bowel obstruction and at a future date, arrange for a barium esophagram. If there is evidence of a stricture, an upper endoscopy may be suggested along with dilatation. In the interim, will start patient on a proton pump inhibitor intravenously and monitor. CATHY LIVINGSTON M.D. STEPHANE/[id number]
[2016-11-07] MEDS: SODIUM CHLORIDE 1,000 ML IV SCH (19:51)
[2016-11-08] MEDS: METRONIDAZOLE 500 MG PREMIXED 100 ML IVPB SCH (01:13)
[2016-11-08] MEDS: PIPERACILLIN/TAZOB 3.375 GM 50 ML IVPB SCH ×2 (01:40→09:18)
[2016-11-08] MEDS: INSULIN SLIDING SCALE (NOVOLOG) 1 VIAL SQ SCH ×4 (03:46→16:58)
--- NOTE | 2016-11-08 08:01 | PN ---
Progress Note (short form) - Note Progress Note: 86yo male admitted with recurrent SBO (multiple abd surgical history). Managed conservatively with NGT, gimenez and daily monitoring of I/Os. Resting comfortably. No acute events per RN notes. + flatus & bms Denies n/v/f/c, CP or SOB Last Vital Signs Temp Pulse Resp BP Pulse Ox 97.8 F 68 19 154/49 100 11/08/16 05:00 11/08/16 05:00 11/08/16 05:00 11/08/16 05:00 11/08/16 05:40 CBC, BMP 11/07/16 08:29 11/07/16 08:29 PE General: Alert. NAD Nose: NGT 500mL/24 hrs ABD: Soft. +bs x4. No tenderness w/ palpation : Gimenez to gravity (clear) LE: Soft. NT b/l Problem List - Problems (1) SBO (small bowel obstruction) Assessment/Plan: NGT & gimenez dc'd on rounds Started on clear liquid diet. Advance as tolerated OOB & ambulate Cont care per primary medical team Code(s): K56.69 - OTHER INTESTINAL OBSTRUCTION
[2016-11-08 08:42] LABS: BASOPHIL 0.8 % (0-2.0); EOSINOPHIL 3.5 % (0-4.5); MCH 32.2 pg (25.7-33.7); MCHC 32.9 g/dl (32.0-35.9); MEAN CELL VOLUME 97.9 fl (80-96); MEAN PLT VOLUME 7.6 fl (7.5-11.1); NEUTROPHILS 73.4 % (42.8-82.8); PLATELET COUNT 338 K/MM3 (134-434); RDW 13.1 % (11.9-15.9); WHITE BLOOD COUNT 5.6 K/mm3 (4.0-10.0)
[2016-11-08 09:04] LABS: ALBUMIN 2.2 g/dl (3.5-5.0); ALK PHOS 71 U/L (32-92); ANION GAP 16 (8-16); BILIRUBIN,TOTAL 0.6 mg/dl (0.2-1.0); CALCIUM 7.6 mg/dl (8.4-10.2); CO2 15 mmol/L (22-28); CREATININE 0.9 mg/dl (0.6-1.3); GLUCOSE,RANDOM 107 mg/dl (74-106); MAGNESIUM 1.9 mg/dL (1.8-2.4); PHOSPHOROUS 2.1 mg/dl (2.5-4.6); SGOT/AST 13 U/L (10-42); SGPT/ALT 14 U/L (10-40); TOT PROT 5.2 g/dl (6.4-8.3)
[2016-11-08] MEDS ORDERED: DOCUSATE SODIUM 100 MG CAPSULE (FP) PO PRN (09:22)
--- NOTE | 2016-11-08 09:25 | PN ---
Physical Exam: SUBJECTIVE: Patient seen and examined, smiling, patient reports feeling much better reports less abdominal pain, + flatus, NG tube removed this morning, tolerating clear liquid diet OBJECTIVE:patient is 86 year old male with a past medical history of DM, GERD, Prostate CA with bone mets, HTN, chronic back pain and recurrent SBO (S/P exploratory lap, lysis of adhesion, appendectomy). Patient was admitted from the emergency department for a partial small bowel obstruction Vital Signs Period Temp Pulse Resp BP Sys/Kim Pulse Ox Last 24 Hr 97.8 F-98 F 60-69 18-19 116-160/48-60 95-100 GENERAL: The patient is awake, alert, and fully oriented, in no acute distress. HEAD: Normal with no signs of trauma. EYES: PERRL, extraocular movements intact, sclera anicteric, conjunctiva clear. No ptosis. ENT: Ears normal, nares patent, oropharynx clear without exudates, moist mucous membranes. NECK: Trachea midline, full range of motion, supple. LUNGS: Breath sounds equal, clear to auscultation bilaterally, no wheezes, no crackles, no accessory muscle use. HEART: Regular rate and rhythm, S1, S2 without murmur, rub or gallop. ABDOMEN: Soft, slight tenderness noted to epigastrium, nondistended, hyperactive bowel sounds, no guarding, no rebound, no hepatosplenomegaly, no masses. EXTREMITIES: 2+ pulses, warm, well-perfused, no edema. NEUROLOGICAL: Cranial nerves II through XII grossly intact. Normal speech, gait not observed. PSYCH: Normal mood, normal affect. SKIN: Warm, dry, normal turgor, no rashes or lesions noted Laboratory Results - last 24 hr 11/07/16 11/07/16 11/08/16 23:35 Unknown 05:38 WBC RBC Hgb Hct MCV MCHC RDW Plt Count MPV Neutrophils % Lymphocytes % Monocytes % Eosinophils % Basophils % Sodium Potassium Chloride Carbon Dioxide Anion Gap BUN Creatinine Creat Clearance w eGFR POC Glucometer 99 100 Random Glucose Calcium Phosphorus 2.3 L D Magnesium 1.5 L Total Bilirubin AST ALT Alkaline Phosphatase Total Protein Albumin 11/08/16 11/08/16 07:00 07:00 WBC 5.6 RBC 3.39 L Hgb 10.9 L Hct 33.2 L MCV 97.9 H MCHC 32.9 RDW 13.1 Plt Count 338 MPV 7.6 Neutrophils % 73.4 Lymphocytes % 10.2 Monocytes % 12.1 H Eosinophils % 3.5 Basophils % 0.8 Sodium 141 Potassium 3.9 Chloride 110 H Carbon Dioxide 15 L Anion Gap 16 BUN 13 D Creatinine 0.9 Creat Clearance w eGFR > 60 POC Glucometer Random Glucose 107 H Calcium 7.6 L Phosphorus 2.1 L Magnesium 1.9 D Total Bilirubin 0.6 AST 13 D ALT 14 D Alkaline Phosphatase 71 D Total Protein 5.2 L D Albumin 2.2 L D Active Medications Generic Name Dose Route Start Last Admin Trade Name Freq PRN Reason Stop Dose Admin Enalaprilat 2.5 mg 11/05/16 22:10 Vasotec Injection - IVPB DAILY PRN HYPERTENSION Fentanyl 1 patch 11/05/16 22:15 11/05/16 23:25 Duragesic 100mcg Patch - TD 11/12/16 22:16 1 patch Q72H MANNY Administration Pantoprazole Sodium 100 mls @ 200 mls/hr 11/06/16 10:00 11/07/16 10:00 Protonix 40mg Ivpb (Pre-Docked) IVPB 200 mls/hr DAILY MANNY Administration Metronidazole 100 mls @ 100 mls/hr 11/06/16 10:00 11/08/16 01:13 Flagyl 500mg Premixed Ivpb - IVPB 100 mls/hr Q8H-IV MANNY Administration Piperacillin Sod/Tazobactam Sod 50 mls @ 100 mls/hr 11/06/16 10:30 11/08/16 01: 40 Zosyn 3.375gm Ivpb (Pre-Docked) IVPB 100 mls/hr Q8H-IV MANNY Administration Insulin Aspart 0 vial 11/05/16 14:30 11/08/16 03:46 Novolog Vial Sliding Scale - SQ Not Given Q6H [facility] Protocol Miscellaneous 1 each 11/05/16 22:15 Duragesic Patch Waste TD PRN PRN PAIN Morphine Sulfate 2 mg 11/05/16 14:16 11/07/16 23:47 Morphine Injection - IVPUSH 2 mg Q4H PRN Administration PAIN Microbiology 11/05/16 09:00 Blood - Peripheral Venous Blood Culture - Preliminary NO GROWTH OBTAINED AFTER 72 HOURS, INCUBATION TO CONTINUE FOR 2 DAYS. 11/05/16 09:15 Blood - Peripheral Venous Blood Culture - Preliminary NO GROWTH OBTAINED AFTER 72 HOURS, INCUBATION TO CONTINUE FOR 2 DAYS. 11/05/16 15:00 Urine - Urine Clean Catch Urine Culture - Final NO GROWTH OBTAINED imaging CT scan- oral contrast-dilated SB with transition point in mid ileum in RLQ, c/ w PSBO Head CT-no evidnece of acute hemmorhage, edema. KUB (11/06/16), slight decrease in bowel loops KUB (11/07/2016)improving SBO ASSESSMENT/PLAN: 1)GI: partial small bowel obstruction - ngt removed early this a.m. patient tolerating clears with advanced to full liquid. If tolerating diet and will advance to soft diet tomorrow - patient is afebrile no leukocytosis noted DC antibiotics - General surgery consulted and following, Dr. hull - GI consulted and followed , Dr. Horta 2) hem/onc: prostate CA with mets - continue fentanyl patch 100cq (home dose) - restart lyrica - continue PRN morphine 3) card hypertension - restart altace f/e/n - full liquid diet - and patient report difficulty with swallowing chopped foods, appreciate speech and swallow consult, barium swallow study ordered ppx protonix SCD lovenox dispo:requires inpatient care, plan of care discussed with at bedside, agrees with plan. Visit type - Emergency Visit Emergency Visit: Yes ED Registration Date: 11/05/16 Care time: The patient presented to the Emergency Department on the above date and was hospitalized for further evaluation of their emergent condition. - New Patient This patient is new to me today: No - Critical Care Critical Care patient: No - Discharge Referral Referred to [facility] Yes Physician Referral: Jerome Abreu MD (Int Med)
--- NOTE | 2016-11-08 09:54 | PN ---
Progress Note, Physician History of Present Illness: Awake, more alert C/O mild abdominal discomfort + flatus No BM NGT removed No fever/ chills WBC WNL Cultures no growth - Current Medication List Current Medications: Active Medications Docusate Sodium (Colace -) 100 mg PO PRN PRN PRN Reason: CONSTIPATION Enalaprilat (Vasotec Injection -) 2.5 mg IVPB DAILY PRN PRN Reason: HYPERTENSION Fentanyl (Duragesic 100mcg Patch -) 1 patch TD Q72H [facility] Stop: 11/12/16 22:16 Last Admin: 11/05/16 23:25 Dose: 1 patch Pantoprazole Sodium (Protonix 40mg Ivpb (Pre-Docked)) 100 mls @ 200 mls/hr IVPB DAILY [facility] Last Admin: 11/07/16 10:00 Dose: 200 mls/hr Metronidazole (Flagyl 500mg Premixed Ivpb -) 100 mls @ 100 mls/hr IVPB Q8H-IV MANNY Last Admin: 11/08/16 01:13 Dose: 100 mls/hr Piperacillin Sod/Tazobactam Sod (Zosyn 3.375gm Ivpb (Pre-Docked)) 50 mls @ 100 mls/hr IVPB Q8H-IV [facility] Last Admin: 11/08/16 09:18 Dose: 100 mls/hr Insulin Aspart (Novolog Vial Sliding Scale -) 0 vial SQ ACHS MANNY PRN Reason: Protocol Miscellaneous (Duragesic Patch Waste) 1 each TD PRN PRN PRN Reason: PAIN Morphine Sulfate (Morphine Injection -) 2 mg IVPUSH Q4H PRN PRN Reason: PAIN Last Admin: 11/07/16 23:47 Dose: 2 mg Pregabalin (Lyrica -) 100 mg PO TID MANNY Ramipril (Altace -) 2.5 mg PO Q48H [facility] Venlafaxine HCl (Effexor Xr -) 37.5 mg PO DAILY [facility] - Objective Vital Signs: Vital Signs Temperature 98 F 11/08/16 08:39 Pulse Rate 60 11/08/16 08:39 Respiratory Rate 18 11/08/16 08:39 Blood Pressure 160/60 11/08/16 08:39 O2 Sat by Pulse Oximetry (%) 100 11/08/16 08:27 Constitutional: Yes: No Distress Eyes: Yes: Conjunctiva Clear Cardiovascular: Yes: Regular Rate and Rhythm, S1, S2 Respiratory: Yes: CTA Bilaterally Gastrointestinal: Yes: Normal Bowel Sounds, Soft, Tenderness, Other (less distended; mild diffuse tenderness) Edema: No Labs: CBC, BMP 11/08/16 07:00 11/08/16 07:00 INR, PTT INR 1.10 (0.82-1.09) 11/05/16 09:18 Assessment/Plan Recurrent partial SBO Fever- resolved Possible toxic-metabolic encephalopathy-improved Afebrile, WBC WNL Cultures negative D/C antibiotics, observe off l
[2016-11-08] MEDS ORDERED: RAMIPRIL 2.5 MG CAPSULE (FP) PO SCH (10:00)
[2016-11-08] MEDS ORDERED: PT OWN MED DRAWER 7, Y5N ONE (11:54)
[2016-11-08] MEDS ORDERED: NAPH,MB-DB/K PH,MBDB POWDER PACKET PO ONE ×2 (12:00→12:05)
[2016-11-08] MEDS: VENLAFAXINE HCL 37.5 MG E.R. CAPSULE (FP) PO SCH (12:12)
[2016-11-08] MEDS: PANTOPRAZOLE 40 MG TABLET (FP) PO SCH (12:14)
--- NOTE | 2016-11-08 13:59 | CONSULT ---
Admitting History and Physical - Primary Care Physician PCP: Kerry Griffith - Admission History of Present Illness: Per EMR: "HISTORY OF PRESENT ILLNESS: This is a 86 year old male with a past medical history of DM, GERD, Prostate CA with bone mets, HTN, chronic back pain and recurrent SBO who presented to the emergency room today with altered mental status. His reported to the ED staff that he was in his usual state of health last evening when he went to bed , but when he awoke this morning he was confused, disoriented and unable to get out of bed or ambulate. She also reported that he was having intermittent abdominal pain with difficulty swallowing solid foods with a sensation of food stuck in chest. She reported 3 LBM as well. Upon exam, pt reports his stomach is "a little better." Denies nausea or abdominal pain. ER course was notable for: (1) CT scan with partial SBO (2) elevated lactic acid" "Recurrent partial SBO Fever- resolved Possible toxic-metabolic encephalopathy-improved Afebrile, WBC WNL Cultures negative" Seen by GI, Dr. Horta. Plan for Ba esophagram/EGD. History Source: Patient - Smoking History Smoking history: Former smoker Have you smoked in the past 12 months: No Aproximately how many cigarettes per day: 0 If you are a former smoker, when did you quit?: 1984 - Alcohol/Substance Use Hx Alcohol Use: Yes (COCKTAIL X1 DAILY) History - Admission Reason For Visit: PARTIAL BOWEL OBSTRUCTION - General Mental Status: Alert and Oriented, Awake and Alert, Able to Follow Commands Attention: Intact Ability to Follow Directions: Good Head/Neck Control: WFL - Hearing Hearing: Normal Hearing Aide: No With Patient: No Speech Evaluation - Communication Primary Language: DIVEHI Communication: Yes: Within Normal Limits Oral Expression Ability: Yes: No Impairment - Speech Production Able to Make Needs Known: Yes: WNL Intelligibility: Yes: WNL - Speech Characteristics Voice Loudness: Normal Voice Pitch: Yes: Normal Voice Phonatory-based Quality: Yes: Normal Speech Pattern: Normal Speech Clarity: < 100% Nasal Resonance: Normal Articulation: Yes: Precise Rate of Speech: Intact - Language/Auditory Comprehension Observation: Able to respond to yes/no queries: Yes, Comprehends Conversational Speech: Yes - Language/Verbal Expression Able to Respond to Simple Queries: Yes: WNL Able to Communicate Wants and Needs: Yes: WNL Functional Communication Status: Yes: WNL - Swallow Evaluation/Bedside Assessment Current Nutritional Intake: Full Liquids Oral Secretions: Yes: WFL Dentition: Yes: Missing Teeth (a couple missing posteriorally) Facial Symmetry at Rest: Symmetrical Facial Symmetry on Retraction: Symmetrical Facial Movement: Controlled Sensation: Normal Against Resistance Opening: Normal Against Resistance Closing: Normal Pucker Lips: Normal Smile: Normal Lingual Movement: Normal (Tongue with some green coating. "had [place] jello") Lingual Speed of Movement: Normal Lingual Movement Characteristics: Normal Velopharyngeal Movement: Normal Laryngeal Elevation: WFL Laryngeal Movement: Able to Palpate Rate of Intake: WFL Bolus Size: WFL Labial Seal: WFL Chewing: Impaired (not assessed. Pt reports vomiting after solid food. Pt is on liquids at this time.) Oral Prep Time: WFL A-P Transit: WFL Pocketing: None Timing of Swallow: WFL Coughing/Throat Clear: No Change in Voice: No Recommendations - Speech Evaluation, Impression/Plan Impression: Pt with dx of recurrent partial SBO. Pt reports vomiting after solid food. Pt is on liquids at this time. Oral/pharyngeal function wnl, with exception of a couple missing teeth posteriorally. Seen by GI, Dr. Horta with plan for Ba esophagram/EGD. - Dysphagia Impressions/Plan Dysphagia Impressions: Ongoing Evaluation *Silent aspiration: cannot be R/O at bedside Dysphagia Treatment Plan: Elevate HOB during feed (and after meals.) Recommendations: MBS w Esophagus (can be done as out pt, as indicated. Concur with GI plan.)
[2016-11-08] MEDS: PREGABALIN 50 MG CAPSULE PO SCH ×2 (14:50→21:42)
[2016-11-08] MEDS: ENOXAPARIN NA (PORCINE) 40 MG/0.4 ML DISP.SYRIN SQ SCH (14:55)
[2016-11-08] MEDS: PANTOPRAZOLE SODIUM 100 ML IVPB SCH (17:08)
[2016-11-08] MEDS: fentaNYL 100mcg/hr PATCH.TD72 TD SCH (21:45)
[2016-11-09] MEDS: INSULIN SLIDING SCALE (NOVOLOG) 1 VIAL SQ SCH ×5 (00:11→22:30)
[2016-11-09] MEDS: morphine CARPU-JECT 2 MG/1 ML DISP.SYRIN IVPUSH PRN (00:19)
[2016-11-09] MEDS: PREGABALIN 50 MG CAPSULE PO SCH ×3 (06:40→22:27)
--- NOTE | 2016-11-09 08:13 | PN ---
Physical Exam: SUBJECTIVE: Patient seen and examined, reports feeling well, tolerating full liquid diet, denies any nausea or vommiting, report last 2 large bowel movements on the overnight, patient denies any tactile fever. OBJECTIVE: patient is 86 year old male with a past medical history of DM, GERD , Prostate CA with bone mets, HTN, chronic back pain and recurrent SBO (S/P exploratory lap, lysis of adhesion, appendectomy). Patient was admitted from the emergency department for a partial small bowel obstruction Vital Signs Period Temp Pulse Resp BP Sys/Kim Pulse Ox Last 24 Hr 97.8 F-98.7 F 59-86 16-20 135-166/60-78 96-100 GENERAL: The patient is awake, alert, and fully oriented, in no acute distress. HEAD: Normal with no signs of trauma. EYES: PERRL, extraocular movements intact, sclera anicteric, conjunctiva clear. No ptosis. ENT: moist mucous membranes. NECK: Trachea midline, full range of motion, supple. LUNGS: Breath sounds equal, clear to auscultation bilaterally, no wheezes, no crackles, no accessory muscle use. HEART: Regular rate and rhythm, S1, S2 without murmur, rub or gallop. ABDOMEN: Soft, nontender, nondistended, normoactive bowel sounds, no guarding, no rebound, no hepatosplenomegaly, no masses. EXTREMITIES: 2+ pulses, warm, well-perfused, no edema. NEUROLOGICAL: Cranial nerves II through XII grossly intact. Normal speech, gait not observed. PSYCH: Normal mood, normal affect. SKIN: Warm, dry, normal turgor, no rashes or lesions noted Laboratory Results - last 24 hr 11/08/16 11/08/16 11/08/16 07:00 07:00 09:17 WBC 5.6 RBC 3.39 L Hgb 10.9 L Hct 33.2 L MCV 97.9 H MCHC 32.9 RDW 13.1 Plt Count 338 MPV 7.6 Neutrophils % 73.4 Lymphocytes % 10.2 Monocytes % 12.1 H Eosinophils % 3.5 Basophils % 0.8 Sodium 141 Potassium 3.9 Chloride 110 H Carbon Dioxide 15 L Anion Gap 16 BUN 13 D Creatinine 0.9 Creat Clearance w eGFR > 60 POC Glucometer 111 Random Glucose 107 H Calcium 7.6 L Phosphorus 2.1 L Magnesium 1.9 D Total Bilirubin 0.6 AST 13 D ALT 14 D Alkaline Phosphatase 71 D Total Protein 5.2 L D Albumin 2.2 L D 11/08/16 11/08/16 16:57 23:38 WBC RBC Hgb Hct MCV MCHC RDW Plt Count MPV Neutrophils % Lymphocytes % Monocytes % Eosinophils % Basophils % Sodium Potassium Chloride Carbon Dioxide Anion Gap BUN Creatinine Creat Clearance w eGFR POC Glucometer 162 134 Random Glucose Calcium Phosphorus Magnesium Total Bilirubin AST ALT Alkaline Phosphatase Total Protein Albumin Active Medications Generic Name Dose Route Start Last Admin Trade Name Freq PRN Reason Stop Dose Admin Docusate Sodium 100 mg 11/08/16 09:22 Colace - PO DAILY PRN CONSTIPATION Enalaprilat 2.5 mg 11/05/16 22:10 Vasotec Injection - IVPB DAILY PRN HYPERTENSION Enoxaparin Sodium 40 mg 11/08/16 14:30 11/08/16 14:55 Lovenox - SQ 40 mg DAILY MANNY Administration Fentanyl 1 patch 11/05/16 22:15 11/08/16 21:45 Duragesic 100mcg Patch - TD 11/12/16 22:16 1 patch Q72H MANNY Administration Insulin Aspart 0 vial 11/08/16 11:00 11/09/16 07:47 Novolog Vial Sliding Scale - SQ Not Given ACHS [facility] Protocol Miscellaneous 1 each 11/05/16 22:15 Duragesic Patch Waste TD PRN PRN PAIN Morphine Sulfate 2 mg 11/05/16 14:16 11/09/16 00:19 Morphine Injection - IVPUSH 2 mg Q4H PRN Administration PAIN Pantoprazole Sodium 40 mg 11/08/16 12:15 11/08/16 12:14 Protonix - PO 40 mg DAILY MANNY Administration Pregabalin 100 mg 11/08/16 14:00 11/09/16 06:40 Lyrica - PO 100 mg TID MANNY Administration Ramipril 2.5 mg 11/08/16 10:00 11/08/16 12:13 Altace - PO 2.5 mg Q48H MANNY Administration Venlafaxine HCl 37.5 mg 11/08/16 10:00 11/08/16 12:12 Effexor Xr - PO 37.5 mg DAILY MANNY Administration Microbiology 11/05/16 09:00 Blood - Peripheral Venous Blood Culture - Preliminary NO GROWTH OBTAINED AFTER 96 HOURS, INCUBATION TO CONTINUE FOR 1 DAYS. 11/05/16 09:15 Blood - Peripheral Venous Blood Culture - Preliminary NO GROWTH OBTAINED AFTER 96 HOURS, INCUBATION TO CONTINUE FOR 1 DAYS. 11/05/16 15:00 Urine - Urine Clean Catch Urine Culture - Final NO GROWTH OBTAINED imaging CT scan- oral contrast-dilated SB with transition point in mid ileum in RLQ, c/ w PSBO Head CT-no evidnece of acute hemmorhage, edema. KUB (11/06/16), slight decrease in bowel loops KUB (11/07/2016)improving SBO ASSESSMENT/PLAN: 1)GI: partial small bowel obstruction resolved -tolerating full liquid diet advance diet to soft diet - General surgery consulted and following, Dr. hull GERD - reports sensation of food stuck in chest after swallowing prior to SBO, pt evaluated by speech and swallow pathologist, pending modified barium swallow esophogram study - GI consulted and following Dr. Horta 2) hem/onc: prostate CA with mets - continue fentanyl patch 100cq (home dose) - continue lyrica 3) card hypertension - elevated b/p increase altace to 5mg f/e/n - full liquid diet advacne to soft diet - replete lytes prn ppx protonix SCD lovenox dispo:requires inpatient care, plan of care discussed with at bedside, agrees with plan. Visit type - Emergency Visit Emergency Visit: Yes ED Registration Date: 11/05/16 Care time: The patient presented to the Emergency Department on the above date and was hospitalized for further evaluation of their emergent condition. - New Patient This patient is new to me today: No - Critical Care Critical Care patient: No - Discharge Referral Referred to [facility] Med P.C.: Yes Physician Referral: Jerome Abreu MD (Int Med)
[2016-11-09] MEDS ORDERED: PT OWN MED DRAWER 7, Y5N ONE (09:22)
[2016-11-09] MEDS: ENOXAPARIN NA (PORCINE) 40 MG/0.4 ML DISP.SYRIN SQ SCH (09:24)
[2016-11-09] MEDS: PANTOPRAZOLE 40 MG TABLET (FP) PO SCH (09:24)
[2016-11-09] MEDS: VENLAFAXINE HCL 37.5 MG E.R. CAPSULE (FP) PO SCH (09:29)
[2016-11-09] MEDS ORDERED: RAMIPRIL 5 MG CAPSULE (FP) PO SCH (10:00)
--- NOTE | 2016-11-09 10:01 | PN ---
Progress Note (short form) - Note Progress Note: Patient seen and examined. Patient states he is feeling well. He denies abdominal pain or bloating and reports passing gas. He has bowel movements yesterday. He has been tolerating his diet. Campbell was removed yesterday, patient reports urinating without issue. He denies fever, chills, nausea, vomiting. Last Vital Signs Temp Pulse Resp BP Pulse Ox 97.8 F 69 18 165/78 98 11/09/16 07:44 11/09/16 07:44 11/09/16 07:44 11/09/16 07:44 11/09/16 07:44 Exam: Gen: NAD, resting comfortably in bed, pleasant and cooperative Abd: Soft, nondistended, nontender Problem List - Problems (1) Partial bowel obstruction Assessment/Plan: PSBO resolving Continue to advance diet as tolerated Continue care per primary team Code(s): K56.69 - OTHER INTESTINAL OBSTRUCTION
[2016-11-09 10:38] LABS: MCH 31.4 pg (25.7-33.7); MCHC 32.3 g/dl (32.0-35.9); MEAN CELL VOLUME 97.3 fl (80-96); MEAN PLT VOLUME 7.1 fl (7.5-11.1); PLATELET COUNT 435 K/MM3 (134-434); RDW 12.7 % (11.9-15.9); WHITE BLOOD COUNT 7.6 K/mm3 (4.0-10.0)
[2016-11-09 11:08] LABS: ALBUMIN 2.5 g/dl (3.5-5.0); ALK PHOS 72 U/L (32-92); ANION GAP 8 (8-16); BILIRUBIN,TOTAL 0.3 mg/dl (0.2-1.0); CALCIUM 7.7 mg/dl (8.4-10.2); CO2 24 mmol/L (22-28); CREATININE 0.8 mg/dl (0.6-1.3); GLUCOSE,RANDOM 200 mg/dl (74-106); SGOT/AST 13 U/L (10-42); SGPT/ALT 11 U/L (10-40); TOT PROT 5.4 g/dl (6.4-8.3)
[2016-11-09] MEDS ORDERED: INSULIN (NOVOLOG) ASPART 100 UNITS/ML 10ML VIAL ONE (22:32)
[2016-11-10] MEDS: PREGABALIN 50 MG CAPSULE PO SCH ×3 (06:52→21:45)
[2016-11-10] MEDS: INSULIN SLIDING SCALE (NOVOLOG) 1 VIAL SQ SCH ×2 (06:56→21:45)
[2016-11-10] MEDS ORDERED: INSULIN (NOVOLOG) ASPART 100 UNITS/ML 10ML VIAL ONE ×2 (06:56→21:49)
[2016-11-10 08:11] LABS: BASOPHIL 0.4 % (0-2.0); MCH 30.7 pg (25.7-33.7); MCHC 31.7 g/dl (32.0-35.9); MEAN CELL VOLUME 96.7 fl (80-96); MEAN PLT VOLUME 7.5 fl (7.5-11.1); NEUTROPHILS 69.6 % (42.8-82.8); PLATELET COUNT 371 K/MM3 (134-434); RDW 13.1 % (11.9-15.9); WHITE BLOOD COUNT 6.1 K/mm3 (4.0-10.0)
[2016-11-10 08:23] LABS: CALCIUM 7.4 mg/dl (8.4-10.2); CREATININE 0.8 mg/dl (0.6-1.3); MAGNESIUM 1.5 mg/dL (1.8-2.4); PHOSPHOROUS 1.3 mg/dl (2.5-4.6)
[2016-11-10] MEDS ORDERED: POTASSIUM PHOSPHATE 30 MM in DEXTROSE 5%-WATER - 250 ML IVPB ONE (08:49)
[2016-11-10] MEDS ORDERED: MAGNESIUM OXIDE 400 MG TABLET (FP) PO ONE (08:49)
[2016-11-10] MEDS ORDERED: MAGNESIUM SULF 50% (8.12 MEQ/2 ML-1 GM VIAL) IVPB ONE (08:49)
--- NOTE | 2016-11-10 08:49 | PN ---
Progress Note (short form) - Note Progress Note: currently asymptomatic. states he has been tolerating soft diet, states this is the typical food consistencies that he consumes at home. no reports of " sticking sensation" in his throat for several days. has made several soft formed BM. denies CP, SOB,fever, chills, N/V/C/D. had SBO in the past does not recall what work up was done at that time to determine cause Current Medications Generic Name Dose Route Start Last Admin Trade Name Freq PRN Reason Stop Dose Admin Docusate Sodium 100 mg 11/08/16 09:22 Colace - PO DAILY PRN CONSTIPATION Enalaprilat 2.5 mg 11/05/16 22:10 Vasotec Injection - IVPB DAILY PRN HYPERTENSION Enoxaparin Sodium 40 mg 11/08/16 14:30 11/09/16 09:24 Lovenox - SQ 40 mg DAILY MANNY Administration Fentanyl 1 patch 11/05/16 22:15 11/08/16 21:45 Duragesic 100mcg Patch - TD 11/12/16 22:16 1 patch Q72H MANNY Administration Insulin Aspart 0 vial 11/08/16 11:00 11/10/16 06:56 Novolog Vial Sliding Scale - SQ 2 units ACHS MANNY Administration Protocol Miscellaneous 1 each 11/05/16 22:15 Duragesic Patch Waste TD PRN PRN PAIN Morphine Sulfate 2 mg 11/05/16 14:16 11/09/16 00:19 Morphine Injection - IVPUSH 2 mg Q4H PRN Administration PAIN Pantoprazole Sodium 40 mg 11/08/16 12:15 11/09/16 09:24 Protonix - PO 40 mg DAILY MANNY Administration Pregabalin 100 mg 11/08/16 14:00 11/10/16 06:52 Lyrica - PO 100 mg TID MANNY Administration Ramipril 5 mg 11/09/16 10:00 11/09/16 09:24 Altace - PO 5 mg DAILY MANNY Administration Venlafaxine HCl 37.5 mg 11/08/16 10:00 11/09/16 09:29 Effexor Xr - PO 37.5 mg DAILY MANNY Administration Last Vital Signs Temp Pulse Resp BP Pulse Ox 98.6 F 67 18 133/61 96 11/10/16 06:27 11/10/16 06:27 11/10/16 06:27 11/10/16 06:27 11/10/16 06:27 General NAD CV S1 S2 RRR no murmur/rub/gallop Lungs CTA B/L No wheezing/rales/rhonchi Abdomen soft NT/ND normoactive BS no rebound or guarding Extremities no pedal edema CBCD WBC 6.1 K/mm3 (4.0-10.0) 11/10/16 07:15 RBC 3.51 M/mm3 (4.00-5.60) L 11/10/16 07:15 Hgb 10.8 GM/dl (11.7-16.9) L 11/10/16 07:15 Hct 33.9 % (35.4-49) L 11/10/16 07:15 MCV 96.7 fl (80-96) H 11/10/16 07:15 MCHC 31.7 g/dl (32.0-35.9) L 11/10/16 07:15 RDW 13.1 % (11.9-15.9) 11/10/16 07:15 Plt Count 371 K/MM3 (134-434) 11/10/16 07:15 MPV 7.5 fl (7.5-11.1) 11/10/16 07:15 CMP Sodium 139 mmol/L (136-145) 11/10/16 07:15 Potassium 3.8 mmol/L (3.5-5.1) 11/10/16 07:15 Chloride 105 mmol/L (98-107) 11/10/16 07:15 Carbon Dioxide 27 mmol/L (22-28) 11/10/16 07:15 Anion Gap 7 (8-16) L 11/10/16 07:15 BUN 7 mg/dl (7-18) 11/10/16 07:15 Creatinine 0.8 mg/dl (0.6-1.3) 11/10/16 07:15 Creat Clearance w eGFR > 60 (>60) 11/09/16 10:20 Calcium 7.4 mg/dl (8.4-10.2) L 11/10/16 07:15 Total Bilirubin 0.3 mg/dl (0.2-1.0) D 11/09/16 10:20 AST 13 U/L (10-42) 11/09/16 10:20 ALT 11 U/L (10-40) D 11/09/16 10:20 Alkaline Phosphatase 72 U/L (32-92) 11/09/16 10:20 Total Protein 5.4 g/dl (6.4-8.3) L 11/09/16 10:20 Albumin 2.5 g/dl (3.5-5.0) L 11/09/16 10:20 A/P 86yo M with PMH DM, GERD. prostate ca with bone mets, HTN and recurrent SBO presented to the ER and was admitted for further evaluation of their emergent condition 1. Partial SBO- medically managed and resolved. tolerating soft diet and making several soft BM. plan is for MBS as outpatient to further evaluate this sticking sensation in the throat which may be related to esophageal strictures vs GERD since there was improvement with PPI. cont protonix 2. Hypophosphatemia- Kphos IV 3. Hypomagnesemia- Mg 2g IV and po 4. HTN- uncontrolled. increased ramipril to 10mg daily 5. DM- controlled off medications. decreased intake them home? will check A1c. can likely be d/c off oral agents vs reduced medication 6. prostate ca with bone mets- cont pain management 7. DVT ppx- lovenox 8. d/c planning tomorrow pending improvement in electrolytes Visit type - Emergency Visit Emergency Visit: Yes ED Registration Date: 11/05/16 Care time: The patient presented to the Emergency Department on the above date and was hospitalized for further evaluation of their emergent condition. - New Patient This patient is new to me today: Yes Date on this admission: 11/10/16 - Critical Care Critical Care patient: No - Discharge Referral Referred to [facility] Med P.C.: No
[2016-11-10] MEDS ORDERED: PT OWN MED DRAWER 7, Y5N ONE (09:38)
[2016-11-10] MEDS: RAMIPRIL 5 MG CAPSULE (FP) PO SCH (09:53)
[2016-11-10] MEDS: ENOXAPARIN NA (PORCINE) 40 MG/0.4 ML DISP.SYRIN SQ SCH (09:54)
[2016-11-10] MEDS: VENLAFAXINE HCL 37.5 MG E.R. CAPSULE (FP) PO SCH (09:54)
[2016-11-10] MEDS: morphine CARPU-JECT 2 MG/1 ML DISP.SYRIN IVPUSH PRN ×2 (09:54→22:25)
[2016-11-10] MEDS: PANTOPRAZOLE 40 MG TABLET (FP) PO SCH (09:54)
[2016-11-11] MEDS: PREGABALIN 50 MG CAPSULE PO SCH ×3 (07:29→21:03)
[2016-11-11] MEDS: INSULIN SLIDING SCALE (NOVOLOG) 1 VIAL SQ SCH ×4 (07:29→21:04)
[2016-11-11 08:43] LABS: MAGNESIUM 2.1 mg/dL (1.8-2.4); PHOSPHOROUS 1.9 mg/dL (2.5-4.9)
[2016-11-11 08:48] LABS: CALCIUM 7.4 mg/dL (8.5-10.1); CREATININE 0.7 mg/dL (0.7-1.3)
[2016-11-11] MEDS ORDERED: POTASSIUM PHOSPHATE 15 MM in SODIUM CHLORIDE 250 ML IVPB ONE (10:00)
--- NOTE | 2016-11-11 10:07 | PN ---
Progress Note (short form) - Note Progress Note: Subjective: The patient was seen and examined at the bedside, he reports he has not had a bowel movement in days, last BM in computer is documented on 11/08, however RN today states patient had loose BM yesterday. The patient tolerated his breakfast with no nausea or vomiting Phos 1.9 Current Medications Generic Name Dose Route Start Last Admin Trade Name Freq PRN Reason Stop Dose Admin Docusate Sodium 100 mg 11/08/16 09:22 Colace - PO DAILY PRN CONSTIPATION Enalaprilat 2.5 mg 11/05/16 22:10 Vasotec Injection - IVPB DAILY PRN HYPERTENSION Enoxaparin Sodium 40 mg 11/08/16 14:30 11/10/16 09:54 Lovenox - SQ 40 mg DAILY MANNY Administration Fentanyl 1 patch 11/05/16 22:15 11/08/16 21:45 Duragesic 100mcg Patch - TD 11/12/16 22:16 1 patch Q72H MANNY Administration Potassium Phosphate 15 mm/ 255 mls @ 63.75 mls/hr 11/11/16 10:00 Sodium Chloride IVPB 11/11/16 13:59 ONCE ONE 15 MM/4 HR Insulin Aspart 0 vial 11/08/16 11:00 11/11/16 07:29 Novolog Vial Sliding Scale - SQ Not Given ACHS [facility] Protocol Miscellaneous 1 each 11/05/16 22:15 Duragesic Patch Waste TD PRN PRN PAIN Morphine Sulfate 2 mg 11/05/16 14:16 11/10/16 22:25 Morphine Injection - IVPUSH 2 mg Q4H PRN Administration PAIN Pantoprazole Sodium 40 mg 11/08/16 12:15 11/10/16 09:54 Protonix - PO 40 mg DAILY MANNY Administration Pregabalin 100 mg 11/08/16 14:00 11/11/16 07:29 Lyrica - PO 100 mg TID MANNY Administration Ramipril 10 mg 11/10/16 08:52 11/10/16 09:53 Altace - PO 10 mg DAILY MANNY Administration Venlafaxine HCl 37.5 mg 11/08/16 10:00 11/10/16 09:54 Effexor Xr - PO 37.5 mg DAILY MANNY Administration Objective: Vital Signs Period Temp Pulse Resp BP Sys/Kim Pulse Ox Last 24 Hr 98.6 F-98.7 F 76-82 18-19 101-124/46-55 93-97 Physical Exam: General: NAD, A&Ox3 Lungs: CTA bilaterally Heart: RRR, S1S2 Abd: Soft, non-tender, non-distended Ext: Warm, well-perfused. Left foot IV Neuro: CN 2-12 intact CBCD WBC 6.1 K/mm3 (4.0-10.0) 11/10/16 07:15 RBC 3.51 M/mm3 (4.00-5.60) L 11/10/16 07:15 Hgb 10.8 GM/dl (11.7-16.9) L 11/10/16 07:15 Hct 33.9 % (35.4-49) L 11/10/16 07:15 MCV 96.7 fl (80-96) H 11/10/16 07:15 MCHC 31.7 g/dl (32.0-35.9) L 11/10/16 07:15 RDW 13.1 % (11.9-15.9) 11/10/16 07:15 Plt Count 371 K/MM3 (134-434) 11/10/16 07:15 MPV 7.5 fl (7.5-11.1) 11/10/16 07:15 CMP Sodium 142 mmol/L (136-145) 11/11/16 05:30 Potassium 4.1 mmol/L (3.5-5.1) 11/11/16 05:30 Chloride 107 mmol/L (98-107) 11/11/16 05:30 Carbon Dioxide 26 mmol/L (21-32) 11/11/16 05:30 Anion Gap 9 (8-16) 11/11/16 05:30 BUN 7 mg/dL (7-18) 11/11/16 05:30 Creatinine 0.7 mg/dL (0.7-1.3) 11/11/16 05:30 Creat Clearance w eGFR > 60 (>60) 11/09/16 10:20 Random Glucose 135 mg/dL (74-106) H 11/11/16 05:30 Calcium 7.4 mg/dL (8.5-10.1) L 11/11/16 05:30 Total Bilirubin 0.3 mg/dl (0.2-1.0) D 02/03/17 10:20 AST 13 U/L (10-42) 11/09/16 10:20 ALT 11 U/L (10-40) D 11/09/16 10:20 Alkaline Phosphatase 72 U/L (32-92) 11/09/16 10:20 Total Protein 5.4 g/dl (6.4-8.3) L 11/09/16 10:20 Albumin 2.5 g/dl (3.5-5.0) L 11/09/16 10:20 CARDIAC ENZYMES Creatine Kinase 21 IU/L (38-174) L 11/05/16 09:18 Troponin I < 0.03 ng/ml (0.03-0.50) L 11/05/16 09:18 Microbiology 11/05/16 09:00 Blood - Peripheral Venous Blood Culture - Final NO GROWTH AFTER 5 DAYS INCUBATION 11/05/16 09:15 Blood - Peripheral Venous Blood Culture - Final NO GROWTH AFTER 5 DAYS INCUBATION 11/05/16 15:00 Urine - Urine Clean Catch Urine Culture - Final NO GROWTH OBTAINED Assessment: This is a 86 year old male with PMHx DM, GERD, prostate cancer with bone mets, HTN, recurrent SBO who presented to the ED with altered mental status. Plan: 1) GI: Partial SBO - Managed medically - Passing gas - Patient reports no bowel movements, however RN states patient had a loose one yesterday - Tolerating diet - Appreciate surgery consult Sticking sensation in back of throat - MBS per GI then possible endoscopy 2) Cardiology: HTN - Continue Ramipril 3) Endocrine: DM - BGM ACHS - ISS ACHS 4) Oncology: Prostate cancer with bone mets - Continue pain management - Continue Lyrica 5) F/E/N: - Patient has sticking sensation in throat while eating, MBS ordered for tomorrow - Soft diet - Hypomagnesemia: resolved - Hypophosphatemia: replete 6) Prophylaxis: - Lovenox 40mg sq daily - OOB ambulating 7) Dispo: - Requires continued inpatient care CODE STATUS: FULL CODE Visit type - Emergency Visit Emergency Visit: Yes ED Registration Date: 11/05/16 Care time: The patient presented to the Emergency Department on the above date and was hospitalized for further evaluation of their emergent condition. - New Patient This patient is new to me today: Yes Date on this admission: 11/11/16 - Critical Care Critical Care patient: No
[2016-11-11] MEDS: ENOXAPARIN NA (PORCINE) 40 MG/0.4 ML DISP.SYRIN SQ SCH (10:14)
[2016-11-11] MEDS: VENLAFAXINE HCL 37.5 MG E.R. CAPSULE (FP) PO SCH (10:15)
[2016-11-11] MEDS: PANTOPRAZOLE 40 MG TABLET (FP) PO SCH (10:15)
[2016-11-11] MEDS: RAMIPRIL 5 MG CAPSULE (FP) PO SCH (10:18)
[2016-11-11] MEDS ORDERED: INSULIN (NOVOLOG) ASPART 100 UNITS/ML 10ML VIAL ONE (11:49)
[2016-11-11] MEDS: fentaNYL 100mcg/hr PATCH.TD72 TD SCH (22:01)
[2016-11-11] MEDS: morphine CARPU-JECT 2 MG/1 ML DISP.SYRIN IVPUSH PRN (22:11)
[2016-11-12] MEDS: PREGABALIN 50 MG CAPSULE PO SCH ×2 (06:10→14:28)
[2016-11-12 06:13] VITALS: BP 124/54; PULSE 72; TEMP 98.9
[2016-11-12] MEDS: INSULIN SLIDING SCALE (NOVOLOG) 1 VIAL SQ SCH (06:13)
--- NOTE | 2016-11-12 10:25 | PN ---
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 No stricture reported. Patient tolerating PO well (soft foods and liquids). Would suggest PO PPI daily and if symptoms persist, can performed outpatient EGD /dilatation.
--- NOTE | 2016-11-12 10:41 | DS ---
Physical Exam: SUBJECTIVE: Patient seen and examined OBJECTIVE: Vital Signs Period Temp Pulse Resp BP Sys/Kim Pulse Ox Last 24 Hr 98.9 F-99.9 F 72-83 19-20 105-124/50-57 92-96 PHYSICAL EXAM GENERAL: The patient is awake, alert, and fully oriented, in no acute distress. HEAD: Normal with no signs of trauma. EYES: PERRL, extraocular movements intact, sclera anicteric, conjunctiva clear. ENT: Ears normal, nares patent, oropharynx clear without exudates, moist mucous membranes. NECK: Trachea midline, full range of motion, supple. LUNGS: Breath sounds equal, clear to auscultation bilaterally, no wheezes, no crackles, no accessory muscle use. HEART: Regular rate and rhythm, S1, S2 without murmur, rub or gallop. ABDOMEN: Soft, nontender, nondistended, normoactive bowel sounds, no guarding, no rebound, no hepatosplenomegaly, no masses. EXTREMITIES: 2+ pulses, warm, well-perfused, no edema. NEUROLOGICAL: Cranial nerves II through XII grossly intact. Normal speech, gait not observed. PSYCH: Normal mood, normal affect. SKIN: Warm, dry, normal turgor, no rashes or lesions noted. LABS Laboratory Results - last 24 hr 11/11/16 11/11/16 11/11/16 11:46 16:35 20:56 POC Glucometer 178 117 164 11/12/16 06:12 POC Glucometer 140 HOSPITAL COURSE: Date of Admission:11/05/16 Date of Discharge: 11/12/16 Discharge Summary Reason For Visit: PARTIAL BOWEL OBSTRUCTION Current Active Problems Partial bowel obstruction (Acute) SBO (small bowel obstruction) (Acute) Condition: Stable - Home Medications Comprehensive Discharge Medication List: Ambulatory Orders Pregabalin [Lyrica -] 100 mg PO TID 08/03/14 Docusate Sodium [Colace -] 100 mg PO PRN PRN 04/08/16 Insulin Glargine,Hum.rec.anlog [Lantus Solostar PEN (NF)] 16 units SQ DAILY 12/20 Venlafaxine HCl ER [Effexor Xr -] 37.5 mg PO DAILY 04/08/16 Fentanyl 150 mcg TD Q72H 11/05/16 Omeprazole 10 mg PO DAILY 11/05/16 Ramipril [Altace] 2.5 mg PO Q48H 11/05/16 Ranitidine HCl [Zantac] 150 mg PO DAILY 11/05/16 - Discharge Referral Referred to [facility] Med P.C.: Yes Physician Referral: Jerome Abreu MD (Int Med)
[2016-11-12] MEDS: VENLAFAXINE HCL 37.5 MG E.R. CAPSULE (FP) PO SCH (10:49)
[2016-11-12] MEDS: RAMIPRIL 5 MG CAPSULE (FP) PO SCH (10:49)
[2016-11-12] MEDS: PANTOPRAZOLE 40 MG TABLET (FP) PO SCH (10:49)
[2016-11-12] MEDS: ENOXAPARIN NA (PORCINE) 40 MG/0.4 ML DISP.SYRIN SQ SCH (10:50)
[2016-11-12] MEDS ORDERED: PT OWN MED DRAWER 7, Y5N ONE (10:51)
[2016-11-12] MEDS ORDERED: NAPH,MB-DB/K PH,MBDB POWDER PACKET PO ONE (12:00)
== END 2016-11-12 14:31 | disposition home or self-care (01) | DRG 388 ==
LOC: FER 08:46 → FM/S 15:09
PROVIDERS: ADMIT Internal Medicine; ATTEND Nurse Practitioner Family
PROC: BD11ZZZ Fluoroscopy of Esophagus (ICD-10-PCS; principal; 2016-11-12)
DX: K56.5 Intestinal adhesions [bands] with obstruction (postinfection) (principal); G92 Toxic encephalopathy; C79.51 Secondary malignant neoplasm of bone; E11.9 Type 2 diabetes mellitus without complications; K21.9 Gastro-esophageal reflux disease without esophagitis; I10 Essential (primary) hypertension; G89.29 Other chronic pain; C61 Malignant neoplasm of prostate; I65.29 Occlusion and stenosis of unspecified carotid artery; E83.42 Hypomagnesemia; E83.39 Other disorders of phosphorus metabolism; K22.2 Esophageal obstruction
CPT/HCPCS: 36415; 70450-TC; 71010-TC; 74000-TC; 74020-TC; 74177-TC; 74220-TC; 80048; 80053; 81003; 81015; 82272; 82550; 83036; 83605; 83735; 84100; 84484; 85025; 85027; 85610; 87040; 87086; 93005; 97116-GP; 97162-PG; 99285-25

== ENCOUNTER 2017-06-03 08:53 | Inpatient (IN) | payer OTHER ==
[2017-06-03] MEDS ORDERED: SODIUM CHLORIDE 2,000 ML IV STA (09:20)
--- NOTE | 2017-06-03 09:21 | PDOC ---
History of Present Illness - General Chief Complaint: Weakness Stated Complaint: weakness Time Seen by Provider: 06/03/17 09:07 History Source: Patient, Significant Other Exam Limitations: Other (most of history obtained from , patient was vague historian) - History of Present Illness Initial Comments: 87 yo M history prostate CA with mets presents with weakness. As per , they recently traveled to [place], and he was well for the first part of the trip , but he slowly became weaker, unable to exert himself, SOB. He was recently treated for pna by Dr. Sheth. No recent bleeding. He is on morphine for pain management. Denies any pain at present. Past History - Past Medical History Allergies/Adverse Reactions: Allergies Allergy/AdvReac Type Severity Reaction Status Date / Time No Known Drug Allergies Allergy Verified 06/03/17 08:54 Home Medications: Ambulatory Orders Morphine (Avinza) [Avinza] 30 mg PO BID 06/03/17 Pregabalin [Lyrica] 100 mg PO TID 06/03/17 Venlafaxine HCl ER [Effexor Xr -] 75 mg PO DAILY 06/03/17 Anemia: No Asthma: No Cancer: No (PROSTATE WITH METS TO SPINE) Cardiac Disorders: No CVA: No COPD: Yes (PE many years ago) CHF: No Dementia: No Diabetes: Yes (TYPE I) GI Disorders: No Disorders: No HTN: No Hypercholesterolemia: No Liver Disease: No Psychiatric Problems: Yes (ANXIETY) Seizures: No Thyroid Disease: No - Surgical History Abdominal Surgery: Yes (ABD ADHESIONS) Appendectomy: Yes Cardiac Surgery: No Cholecystectomy: No Lung Surgery: No Neurologic Surgery: No Orthopedic Surgery: Yes (SEVERAL BACK SXS, LAST 03/2016) - Psycho/Social/Smoking Cessation Hx Anxiety: No Suicidal Ideation: No Smoking Status: No Smoking History: Former smoker Have you smoked in the past 12 months: No Number of Cigarettes Smoked Daily: 0 If you are a former smoker, when did you quit?: 1984 Hx Alcohol Use: Yes (COCKTAIL X1 DAILY) Drug/Substance Use Hx: No Substance Use Type: None Hx Substance Use Treatment: No Review of Systems - Review of Systems Able to Perform ROS?: Yes Comments:: GENERAL/CONSTITUTIONAL: No fever or chills. +Weakness. HEAD, EYES, EARS, NOSE AND THROAT: No change in vision. No ear pain or discharge. No sore throat. CARDIOVASCULAR: No chest pain. +Exertional shortness of breath. RESPIRATORY: No cough, wheezing, or hemoptysis. GASTROINTESTINAL: No nausea, vomiting, diarrhea or constipation. GENITOURINARY: No dysuria, frequency, or change in urination. MUSCULOSKELETAL: No joint or muscle swelling or pain. No neck or back pain. SKIN: No rash NEUROLOGIC: No headache, vertigo, loss of consciousness, or change in strength/ sensation. ENDOCRINE: No increased thirst. No abnormal weight change. HEMATOLOGIC/LYMPHATIC: No anemia, easy bleeding, or history of blood clots. ALLERGIC/IMMUNOLOGIC: No hives or skin allergy. *Physical Exam - Physical Exam Comments: GENERAL: Awake, alert, and fully oriented, in no acute distress. +Pallor to the lips. HEAD: No signs of trauma EYES: PERRLA, EOMI, sclera anicteric, conjunctiva pale. ENT: Auricles normal inspection, hearing grossly normal, nares patent, oropharynx clear without exudates. Dry mucosa NECK: Normal ROM, supple, no lymphadenopathy, JVD, or masses LUNGS: Breath sounds equal, clear to auscultation bilaterally. No wheezes, and no crackles HEART: Regular rate and rhythm, normal S1 and S2, no murmurs, rubs or gallops ABDOMEN: Soft, nontender, normoactive bowel sounds. No guarding, no rebound. No masses EXTREMITIES: Normal range of motion, no edema. No clubbing or cyanosis. No cords , erythema, or tenderness NEUROLOGICAL: Cranial nerves II through XII grossly intact. Normal speech. Moving all extremities. Gait not tested due to nature of complaint. SKIN: Warm, Dry, normal turgor, no rashes or lesions noted. ED Treatment Course - LABORATORY CBC & Chemistry Diagram: 06/03/17 09:47 06/03/17 09:47 Medical Decision Making - Critical Care Time Total Critical Care Time (minutes): 50 Critical Care Statement: The care of this patient involved high complexity decision making to prevent further life threatening deterioration of the patient 's condition and/or to evaluate & treat vital organ system(s) failure or risk of failure. - Medical Decision Making 06/03/17 10:24 Pt's labs have resulted- no significant change in Hb, raising concern for possible PE, given prior history of PE and current history of prostate CA. His creatinine clearance has increased, will hydrate and place on heparin. Plan for admission, possibly CTA once his kidney function has improved. Will discuss with hospitalist pending remainder of sepsis w/u. 06/03/17 11:35 Pt noted to be hypotensive on repeat vital signs. He still appears dehydrated, and I suspect this is contributing significantly. Will give a third liter of IV fluids on pressure bag, now that we have better IV access (I was able to place a R EJ 20G IV). Will cont to monitor. 06/03/17 12:14 EXPERIMENTAL TECHNICIAN Hay in ED to evaluate the patient as initial lactate resulted, it is 4.9. This patient would be better served with ICU level care, will d/w customer account manager, as well as patient's . 06/03/17 12:47 Pt has been accepted to ICU by Dr. Shanks. I will attempt to get bedside echo while awaiting transportation. 06/03/17 14:33 Bedside echo in process. DVT study shows +DVT. Results endorsed to hospitalist. *DC/Admit/Observation/Transfer Diagnosis at time of Disposition: Weakness, Suspected pulmonary embolism Hypotension Qualifiers: Hypotension type: unspecified hypotension type Qualified Code(s): I95.9 - Hypotension, unspecified - Discharge Dispostion Condition at time of disposition: Guarded Admit: Yes - Referrals
[2017-06-03 10:03] LABS: BASOPHIL 0.3 % (0-2.0); EOSINOPHIL 0.2 % (0-4.5); MCH 32.1 pg (25.7-33.7); MCHC 33.7 g/dl (32.0-35.9); MEAN CELL VOLUME 95.2 fl (80-96); MEAN PLT VOLUME 8.3 fl (7.5-11.1); NEUTROPHILS 84.4 % (42.8-82.8); PLATELET COUNT 166 K/MM3 (134-434); RDW 16.4 % (11.9-15.9); WHITE BLOOD COUNT 9.8 K/mm3 (4.0-10.8)
[2017-06-03 10:15] LABS: ALBUMIN 2.8 g/dl (3.5-5.0); ALK PHOS 106 U/L (32-92); ANION GAP 12 (8-16); BILIRUBIN,TOTAL 0.5 mg/dl (0.2-1.0); CALCIUM 8.3 mg/dl (8.4-10.2); CO2 17 mmol/L (22-28); CREATININE 1.9 mg/dl (0.6-1.3); GLUCOSE,RANDOM 289 mg/dl (74-106); SGOT/AST 41 U/L (10-42); SGPT/ALT 16 U/L (10-40); TOT PROT 6.1 g/dl (6.4-8.3)
[2017-06-03 10:18] LABS: INR 1.22 (0.82-1.09); PROTHROMBIN TIME (PATIENT) 13.6 SEC (10.2-13.0)
[2017-06-03 10:23] LABS: TROPONIN I (DFP) 0.36 ng/ml (0.03-0.50)
[2017-06-03] MEDS ORDERED: HEPARIN NA (PORCINE) 5,000 UNITS/ML 1ML VIAL IVPUSH ONE ×2 (10:24→10:27)
[2017-06-03] MEDS ORDERED: HEPARIN INFUSION - 500 ML IVPB SCH (10:30)
[2017-06-03] MEDS ORDERED: HEPARIN NA (PORCINE) 5,000 UNITS/ML 1ML VIAL ONE (11:22)
[2017-06-03 11:37] LABS: TROPONIN I (DFP) 0.36 ng/ml (0.03-0.50)
[2017-06-03 11:41] LABS: CPK 72 IU/L (39-308)
[2017-06-03] MEDS ORDERED: SODIUM CHLORIDE 1,000 ML IV STA (11:47)
[2017-06-03] MEDS: HEPARIN - 25,000 UNIT in SODIUM CHLORIDE 495 ML IV SCH (11:57)
--- NOTE | 2017-06-03 12:36 | HP ---
CHIEF COMPLAINT: generalized weakness & shortness of breath PCP: Dr Sheth Oncologist: Dr Venegas HISTORY OF PRESENT ILLNESS: Patient is a 87 y/o male with a past medical history of metastatic prostate CA (xgeva), hypertension, GERD, SBO and NIDDM. Patient reports he returned home from [place] by plane on May2016. Upon arrival home, he developed shortness of breath and generalized weakness. However, symptoms continued throughout the past four days. He was attempting to ambulate at home earlier this AM and collapsed as per his . Patient's was able to catch him and he was lowered to the floor by his . He denies striking his head. As a result, he sought evaluation in the emergency department. In addition, he was treated with po levaquin for 10 days for bronchitis, his last dose was 05/31/17. ER course was notable for: (1) b/p 86/56 upon arrival 103/63 after 3 liters NS (2) lactic acid 4.9 (3) chest xray no acute pathology Recent Travel: PAST MEDICAL HISTORY: see hpi PAST SURGICAL HISTORY: abdominal adhesions, lumbar spine surgery Social History: retired resides at home with his Smoking:none Alcohol: social Drugs: none Family History: noncontributory to this admission Allergies No Known Drug Allergies Allergy (Verified 06/03/17 08:54) HOME MEDICATIONS: Home Medications Medication Instructions Recorded Morphine (Avinza) [Avinza] 30 mg PO BID 06/03/17 Pregabalin [Lyrica] 100 mg PO TID 06/03/17 Venlafaxine HCl ER [Effexor Xr -] 75 mg PO DAILY 06/03/17 REVIEW OF SYSTEMS CONSTITUTIONAL: Present: generalized weakness, malaise, loss of appetite Absent: fever, chills, diaphoresis, weight change HEENT: Absent: rhinorrhea, nasal congestion, throat pain, throat swelling, difficulty swallowing, mouth swelling, ear pain, eye pain, visual changes CARDIOVASCULAR: Absent: chest pain, syncope, palpitations, irregular heart rate, lightheadedness , peripheral edema RESPIRATORY: Absent: cough, shortness of breath, dyspnea with exertion, orthopnea, wheezing, stridor, hemoptysis GASTROINTESTINAL: Absent: abdominal pain, abdominal distension, nausea, vomiting, diarrhea, constipation, melena, hematochezia GENITOURINARY: Absent: dysuria, frequency, urgency, hesitancy, hematuria, flank pain, genital pain MUSCULOSKELETAL: Absent: myalgia, arthralgia, joint swelling, back pain, neck pain SKIN: Absent: rash, itching, pallor HEMATOLOGIC/IMMUNOLOGIC: Absent: easy bleeding, easy bruising, lymphadenopathy, frequent infections ENDOCRINE: Absent: unexplained weight gain, unexplained weight loss, heat intolerance, cold intolerance NEUROLOGIC: Absent: headache, focal weakness or paresthesias, dizziness, unsteady gait, seizure, mental status changes, bladder or bowel incontinence PSYCHIATRIC: Absent: anxiety, depression, suicidal or homicidal ideation, hallucinations. PHYSICAL EXAMINATION Vital Signs - 24 hr 06/03/17 06/03/17 06/03/17 08:53 09:20 10:02 Temperature 97.9 F 97.9 F Pulse Rate 72 Pulse Rate [ 74 Apical] Respiratory 18 16 Rate Blood Pressure 86/56 Blood Pressure 99/56 [Left Arm] O2 Sat by Pulse 96 Oximetry (%) 06/03/17 06/03/17 11:28 12:06 Temperature Pulse Rate Pulse Rate [ 60 64 Apical] Respiratory Rate Blood Pressure Blood Pressure 87/58 103/63 [Left Arm] O2 Sat by Pulse Oximetry (%) GENERAL: lethargic, alert, and fully oriented, in no acute distress. HEAD: Normal with no signs of trauma. EYES: Pupils equal, round and reactive to light, extraocular movements intact, sclera anicteric, pale conjunctiva No lid lag. EARS, NOSE, THROAT: Ears normal, nares patent, oropharynx clear without exudates. dry mucous membranes. NECK: Normal range of motion, supple without lymphadenopathy, JVD, or masses. LUNGS: Breath sounds equal, clear to auscultation bilaterally. No wheezes, and no crackles. No accessory muscle use. HEART: Regular rate and rhythm, normal S1 and S2, 2/6 systolic murmur, rub or gallop. ABDOMEN: Soft, nontender, not distended, normoactive bowel sounds, no guarding, no rebound, no masses. No hepatomegaly or splenomegaly. MUSCULOSKELETAL: Normal range of motion at all joints. No bony deformities or tenderness. No CVA tenderness. UPPER EXTREMITIES: 2+ pulses, warm, delayed capp refill, No cyanosis. No clubbing. No peripheral edema. LOWER EXTREMITIES: 2+ pulses, warm, delayed capp refill, No calf tenderness. No peripheral edema. NEUROLOGICAL: Cranial nerves II-XII intact. Normal speech. Normal gait. PSYCHIATRIC: Cooperative. Good eye contact. Appropriate mood and affect. SKIN: Warm, dry, normal turgor, no rashes or lesions noted, normal capillary refill. Laboratory Results - last 24 hr 06/03/17 06/03/17 06/03/17 09:47 09:47 09:47 WBC 9.8 D RBC 3.10 L Hgb 9.9 L Hct 29.5 L MCV 95.2 MCH 32.1 MCHC 33.7 RDW 16.4 H D Plt Count 166 D MPV 8.3 Neutrophils % 84.4 H D Lymphocytes % 5.2 L D Monocytes % 9.9 Eosinophils % 0.2 D Basophils % 0.3 INR 1.22 PTT (Actin FS) 26.0 L Sodium 133 L Potassium 5.5 H Chloride 104 Carbon Dioxide 17 L Anion Gap 12 BUN 28 H Creatinine 1.9 H D Creat Clearance w eGFR 33.86 Random Glucose 289 H D Lactic Acid Calcium 8.3 L Total Bilirubin 0.5 D AST 41 D ALT 16 D Alkaline Phosphatase 106 H Creatine Kinase 72 Troponin I 0.36 Total Protein 6.1 L Albumin 2.8 L Blood Type Antibody Screen 06/03/17 06/03/17 06/03/17 09:47 09:47 09:47 WBC RBC Hgb Hct MCV MCH MCHC RDW Plt Count MPV Neutrophils % Lymphocytes % Monocytes % Eosinophils % Basophils % INR PTT (Actin FS) Sodium Potassium Chloride Carbon Dioxide Anion Gap BUN Creatinine Creat Clearance w eGFR Random Glucose Lactic Acid 4.9 H* Calcium Total Bilirubin AST ALT Alkaline Phosphatase Creatine Kinase 72 Troponin I 0.36 Total Protein Albumin Blood Type A NEGATIVE Antibody Screen Negative ASSESSMENT/PLAN: F/E/N - diabetic/low sodium diet - replete lytes prn ppx - oob - pepcid - heparin gtt dispo: requires inpatient ICU admission Problem List - Problem (1) Hypotension Assessment/Plan: - likely secondary to obstructive shock (PE) vs hypovolemia - 3 liters of NS given in ED, continue IV hydration - gimenez ordered for accurate I/O - pt will require ICU admission Code(s): I95.9 - HYPOTENSION, UNSPECIFIED Qualifiers: Hypotension type: unspecified hypotension type Qualified Code(s): I95.9 - Hypotension, unspecified (2) Suspected pulmonary embolism Assessment/Plan: - pt noted to be hypotensive with elevated troponin, continue heparin gtt - stat echo ordered - pending doppler of lower extremities - continous cardiac monitoring Code(s): I26.99 - OTHER PULMONARY EMBOLISM WITHOUT ACUTE COR PULMONALE (3) Weakness Assessment/Plan: - continue iv hydration - fall precautions Code(s): R53.1 - WEAKNESS (4) Diabetes Assessment/Plan: - hold janumet, start fingersticks achs with regular insulin sliding scale coverage - pending hgb a1c and TSH Code(s): E11.9 - TYPE 2 DIABETES MELLITUS WITHOUT COMPLICATIONS Qualifiers: Diabetes mellitus type: type 2 (5) Prostate cancer metastatic to bone Assessment/Plan: - continue prn morphine (home dose) - f/u with oncology as outpatient Code(s): C61 - MALIGNANT NEOPLASM OF PROSTATE C79.51 - SECONDARY MALIGNANT NEOPLASM OF BONE (6) J CARLOS (acute kidney injury) Assessment/Plan: - creatine 1.9 likely secondary to hypovolemia, baseline 0.7 - gimenez ordered, pending pelvic/kidney/bladder ultrasound - repeat creatine at 1500 after iv hydration - avoid nephrotoxic agents Code(s): N17.9 - ACUTE KIDNEY FAILURE, UNSPECIFIED (7) Lactic acid acidosis Assessment/Plan: - lactic 4.9, pending repeat lactic acid after 3 liter normal saline - continue iv hydration Code(s): E87.2 - ACIDOSIS Visit type - Emergency Visit Emergency Visit: Yes Care time: The patient presented to the Emergency Department on the above date and was hospitalized for further evaluation of their emergent condition. - New Patient This patient is new to me today: Yes Date on this admission: 06/03/17 - Critical Care Critical Care patient: Yes Total Critical Care Time (in minutes): 45 Critical Care Statement: The care of this patient involved high complexity decision making to prevent further life threatening deterioration of the patient 's condition and/or to evaluate & treat vital organ system(s) failure or risk of failure.
[2017-06-03] MEDS ORDERED: HEMOQUE CONTROL SOLUTION ONE (12:55)
[2017-06-03] MEDS ORDERED: HEMOQUE TEST 1 EACH EACH ONE ×2 (12:57→13:03)
[2017-06-03 13:06] LABS: VENOUS PH 7.29 (7.35-7.45)
[2017-06-03 13:07] LABS: VENOUS BLOOD GAS HCO3 19.4 meq/L (22-26)
[2017-06-03 13:17] LABS: PH,URINE 5.5 (4.5-8); URINE APPEARANCE Slightly; URINE BILIRUBIN 1+ (NEGATIVE); URINE GLUCOSE (UA) Negative (NEGATIVE); URINE KETONE Trace (NEGATIVE); URINE LEUK ESTERASE Negative (NEGATIVE); URINE NITRITE Negative (NEGATIVE); URINE UROBILINOGEN 0.2 (0.2-1.0)
[2017-06-03 13:22] LABS: URINE BLOOD 2+ (NEGATIVE); URINE COLOR YELLOW; URINE PROTEIN 3+ (NEGATIVE)
[2017-06-03] MEDS ORDERED: SODIUM CHLORIDE 1,000 ML IV SCH ×3 (13:30→19:28)
[2017-06-03 14:19] LABS: URINE WBC 0-1 (3-5)
[2017-06-03 14:20] LABS: URINE MUCUS 1+; WAXY CAST 0-1
[2017-06-03 16:29] VITALS: BMI 24.2
--- NOTE | 2017-06-03 16:36 | CONSULT ---
Consultation: REQUESTING PROVIDER: Rosalee Vaughn CONSULT REQUEST: We have been asked to medically evaluate this patient for ICU/ Critical Care. HISTORY OF PRESENT ILLNESS: 87yo man with PMH of prostate cancer with metastases to bone (on Xgeva), HTN, GERD, SBO, and NIDDM who presents with acute onset SOB and weakness after flying home from [place] on 05/30. For the past four days he continued to have generalized weakness and shortness of breath while at home. Yesterday evening he had difficulty standing up from the toilet. As his was assisting him to stand up he started to collapse. His caught him, and slowly lowered him to the floor. He denies hitting his head or losing consciousness. After that event , he decided to go to the hospital. The patient presented to [place] ED today (06/03) and was found to be hypotensive with elevated lactic acid. The patient received 3L NS which improved BP from 86/56 to 103/63. LE ultrasound found L popliteal DVT, and patient was placed on heparin gtt. The patient was transferred to [facility] ICU for further evaluation of suspected PE and proximal DVT. REVIEW OF SYSTEMS: CONSTITUTIONAL: +generalized weakness, loss of appepite Absent: fever, chills, diaphoresis, weight change HEENT: Absent: rhinorrhea, nasal congestion, throat pain, throat swelling, difficulty swallowing, mouth swelling, ear pain, eye pain, visual changes CARDIOVASCULAR: Absent: chest pain, syncope, palpitations, irregular heart rate, lightheadedness , peripheral edema RESPIRATORY: see HPI Absent: cough, wheezing, hemoptysis GASTROINTESTINAL: Absent: abdominal pain, abdominal distension, nausea, vomiting, diarrhea, constipation, melena, hematochezia GENITOURINARY: +urinary frequency Absent: dysuria, urgency, hesitancy, hematuria, flank pain, genital pain MUSCULOSKELETAL: Absent: myalgia, arthralgia, joint swelling, back pain, neck pain SKIN: Absent: rash, itching, pallor HEMATOLOGIC/IMMUNOLOGIC: +easy bruising since starting Aggrenox Absent: easy bleeding, lymphadenopathy, frequent infections ENDOCRINE: Absent: unexplained weight gain, unexplained weight loss, heat intolerance, cold intolerance NEUROLOGIC: Absent: headache, focal weakness or paresthesias, dizziness, unsteady gait, seizure, mental status changes, bladder or bowel incontinence PSYCHIATRIC: Absent: anxiety, depression, suicidal or homicidal ideation, hallucinations. PHYSICAL EXAMINATION Vital Signs Temperature 97.8 F 06/03/17 15:35 Pulse Rate 74 06/03/17 16:35 Respiratory Rate 18 06/03/17 16:35 Blood Pressure 129/79 06/03/17 16:35 O2 Sat by Pulse Oximetry (%) 100 06/03/17 15:35 GENERAL: Awake, alert, and fully oriented, in no acute distress. HEAD: Normal with no signs of trauma. EYES: EOMI, sclera anicteric, conjunctiva clear EARS, NOSE, THROAT: oropharynx clear without exudates. dry mucous membranes. NECK: supple, no cervical LAD LUNGS: CTAB, no wheezes, rhonchi, or crackles. No accessory muscle use. HEART: Regular rate and rhythm, normal S1 and S2, no murmur, rub or gallop ABDOMEN: Soft, NTND, normoactive BS, no hepatosplenomegaly UPPER EXTREMITIES: 2+ pulses, warm, well-perfused. No peripheral edema. LOWER EXTREMITIES: 2+ pulses, warm, well-perfused. No peripheral edema. NEUROLOGICAL: CN grossly intact, not formally tested. Normal speech. PSYCHIATRIC: Cooperative. Good eye contact. Appropriate mood and affect. SKIN: Warm, dry, normal turgor, ecchymosis L forearm CBC,CMP WBC 9.8 K/mm3 (4.0-10.8) D 06/03/17 09:47 RBC 3.10 M/mm3 (4.00-5.60) L 06/03/17 09:47 Hgb 9.9 GM/dl (11.7-16.9) L 06/03/17 09:47 Hct 29.5 % (35.4-49) L 06/03/17 09:47 MCV 95.2 fl (80-96) 06/03/17 09:47 MCH 32.1 pg (25.7-33.7) 06/03/17 09:47 MCHC 33.7 g/dl (32.0-35.9) 06/03/17 09:47 RDW 16.4 % (11.9-15.9) H D 06/03/17 09:47 Plt Count 166 K/MM3 (134-434) D 06/03/17 09:47 MPV 8.3 fl (7.5-11.1) 06/03/17 09:47 Neutrophils % 84.4 % (42.8-82.8) H D 06/03/17 09:47 Lymphocytes % 5.2 % (8-40) L D 06/03/17 09:47 Monocytes % 9.9 % (3.8-10.2) 06/03/17 09:47 Eosinophils % 0.2 % (0-4.5) D 06/03/17 09:47 Basophils % 0.3 % (0-2.0) 06/03/17 09:47 Sodium 133 mmol/L (136-145) L 06/03/17 09:47 Potassium 5.5 mmol/L (3.5-5.1) H 06/03/17 09:47 Chloride 104 mmol/L (98-107) 06/03/17 09:47 Carbon Dioxide 17 mmol/L (22-28) L 06/03/17 09:47 Anion Gap 12 (8-16) 06/03/17 09:47 BUN 28 mg/dl (7-18) H 06/03/17 09:47 Creatinine 1.9 mg/dl (0.6-1.3) H D 06/03/17 09:47 Creat Clearance w eGFR 33.86 (>60) 06/03/17 09:47 POC Glucometer 170.48514 UNITS (()) 06/03/17 16:50 Random Glucose 289 mg/dl (74-106) H D 06/03/17 09:47 Lactic Acid 2.2 mmol/L (0.4-2.0) H* 06/03/17 11:56 Calcium 8.3 mg/dl (8.4-10.2) L 06/03/17 09:47 Total Bilirubin 0.5 mg/dl (0.2-1.0) D 06/03/17 09:47 AST 41 U/L (10-42) D 06/03/17 09:47 ALT 16 U/L (10-40) D 06/03/17 09:47 Alkaline Phosphatase 106 U/L (32-92) H 06/03/17 09:47 Creatine Kinase 72 IU/L (39-308) 06/03/17 09:47 Troponin I 0.36 ng/ml (0.03-0.50) 06/03/17 09:47 Total Protein 6.1 g/dl (6.4-8.3) L 06/03/17 09:47 Albumin 2.8 g/dl (3.5-5.0) L 06/03/17 09:47 Troponin, BNP 06/03/17 06/03/17 09:47 09:47 Troponin I 0.36 0.36 Urine Test Results Urine Color Yellow 06/03/17 12:54 Urine Appearance Slightly 06/03/17 12:54 Urine pH 5.5 (4.5-8) 06/03/17 12:54 Ur Specific Hanna >= 1.030 (1.005-1.025) H 06/03/17 12:54 Urine Protein 3+ (NEGATIVE) H D 06/03/17 12:54 Urine Glucose (UA) Negative (NEGATIVE) 06/03/17 12:54 Urine Ketones Trace (NEGATIVE) 06/03/17 12:54 Urine Blood 2+ (NEGATIVE) H 06/03/17 12:54 Urine Nitrite Negative (NEGATIVE) 06/03/17 12:54 Urine Bilirubin 1+ (NEGATIVE) H 06/03/17 12:54 Ur Leukocyte Esterase Negative (NEGATIVE) 06/03/17 12:54 Urine RBC 3-5 /hpf (0-3) 06/03/17 12:54 Urine WBC 0-1 (3-5) 06/03/17 12:54 Ur Epithelial Cells 0-3 /HPF 06/03/17 12:54 Urine Mucus 1+ 06/03/17 12:54 IMAGING: CXR 06/03/2017: No e/o pleural effusion, pneumothorax or focal consolidations US Renal and urinary bladder ultrasound 06/03/17: The right kidney measures 10.4 cm in sagittal with a simple cyst in its lower pole measuring 1.1 cm Left kidney measures 9.5 cm in sagittal length with a simple cyst in its lower pole measuring 1.1 cm. There is no evidence of hydronephrosis or renal stones, bilaterally Visualized portion of the liver appears unremarkable. An unclamped Campbell catheter is present in an empty urinary bladder and hence it could not be evaluated. Prostate gland was not visualized. IMPRESSION: Small simple cyst in the right and left kidney. Both kidneys appear unremarkable. Empty urinary bladder. Campbell catheter was not clamped. Reported By: Tray Mead MD 06/03/17 1511 Bilateral leg Doppler venous ultrasound 06/03/17: Grayscale, pulsed Doppler and color Doppler interrogation of both lower extremities deep venous system was performed. There is no evidence of deep venous thromboses in the right lower extremity. In the left lower extremity, there is incomplete compression of the popliteal vein consistent with thrombosis. The left common femoral vein, superficial femoral and popliteal vein are patent without evidence of thrombosis. Visualized portion of the greater saphenous and deep femoral vein are patent without evidence of thrombosis. No Cherry's cyst is identified in the popliteal fossa, bilaterally. IMPRESSION: Findings consistent with deep venous thromboses in the left lower extremity involving the popliteal vein. Reported By: Tray Mead MD 06/03/17 1508 Active Medications Dipyridamole/Aspirin (Aggrenox -) 1 combo PO BID MANNY Heparin Sodium (Porcine) (Heparin -) 1,000 unit IVPUSH PRN PRN PRN Reason: Heparin Heparin Sodium (Porcine) (Heparin -) 5,000 unit IVPUSH PRN PRN PRN Reason: Heparin Heparin Sodium (Porcine) 25, (000 unit/ Sodium Chloride) 500 mls @ 20 mls/hr IV TITR MANNY; 1,000 UNIT/HR PRN Reason: Protocol Last Admin: 06/03/17 11:57 Dose: 20 mls/hr Famotidine/Sodium Chloride (Pepcid 20 Mg Premixed Ivpb -) 50 mls @ 100 mls/hr IVPB BID MANNY Sodium Chloride (Normal Saline -) 1,000 mls @ 100 mls/hr IV ASDIR [facility] Last Admin: 06/03/17 13:57 Dose: 100 mls/hr Insulin Aspart (Novolog Vial Sliding Scale -) 1 vial SQ ACHS MANNY PRN Reason: Protocol Last Admin: 06/03/17 16:53 Dose: 2 units Morphine Sulfate (Ms Contin -) 30 mg PO BID MANNY Pregabalin (Lyrica -) 100 mg PO TID [facility] Last Admin: 06/03/17 16:40 Dose: Not Given Venlafaxine HCl (Effexor Xr -) 75 mg PO DAILY [facility] ASSESSMENT/PLAN: 87yo man with J CARLOS, L popliteal DVT, and suspected PE. Patient has a Wells score of 7 pts (37.5% PE incidence >6pts), and is therefore high risk for PE. CT angiogram to confirm PE is deferred until improvement of J CARLOS. Stat ECHO pending to assess R heart strain. #suspected PE (Wells score 7, 37.5% incidence of PE) -ECHO pending -Heparin gtt --> follow PTT, monitor for bleeding -NC 2L O2 therapy -Hold CTA for now until renal function improves -Cardiology consulted - Dr. Guillen #elevated Troponin I - (0.31 --> 3.12) possibly 2/2 to demand ischemia, increased RV strain -Repeat EKG stat and in AM -Trend cardiac enzymes q6H until peak -Trend lactic acid #J CARLOS -Strict I&Os (Campbell placed) -Urine studies pending: electrolytes, Cr, protein, Protein/Cr ratio -Continue IVF -Routine CMP, Mg, Phos #Hyperkalemia likely 2/2 J CARLOS, no EKG changes -Repeat CMP in AM #HTN -Continue home Aspirin/Dipyridamole (Aggrenox) 1 combo PO BID #NIDDM -Insulin sliding scale ACHS -Hold home medications -Hemoglobin A1c pending -Continue home Pregabalin 100mg TID #GERD -Famotidine 20mg IVPB BID #Metastatic prostate cancer -Continue home Morphine 30 mg PO BID #F/E/N: -NS 100cc/hr -Corrected Na wnl, K high, Replete Mg and Phos pending AM labs -Diabetic/Na restricted diet #Prophylaxis -On PPI -On heparin drip for DVT Dispo: We will continue to follow the patient. Thank you for this consultative opportunity. Iva Moody MD PGY-1 Visit type - Emergency Visit Emergency Visit: No - New Patient This patient is new to me today: Yes Date on this admission: 06/03/17 - Critical Care Critical Care patient: Yes Total Critical Care Time (in minutes): 40 Critical Care Statement: The care of this patient involved high complexity decision making to prevent further life threatening deterioration of the patient 's condition and/or to evaluate & treat vital organ system(s) failure or risk of failure.
[2017-06-03] MEDS: PREGABALIN 50 MG CAPSULE PO SCH ×2 (16:40→21:46)
[2017-06-03] MEDS: INSULIN SLIDING SCALE (NOVOLOG) 1 VIAL SQ SCH ×2 (16:53→21:46)
[2017-06-03 19:28] LABS: TROPONIN I 3.12 ng/ml (0.00-0.05)
[2017-06-03] MEDS: HEPARIN NA (PORCINE) 5,000 UNITS/ML 1ML VIAL IVPUSH PRN (21:00)
--- NOTE | 2017-06-03 21:15 | CONSULT ---
Consult Consult Specialty:: PULM/CCM Reason for Consultation:: DVT, concern for PE - History of Present Illness History of Present Illness: Briefly Mr Gonzalez is an 87 yo man with pmhx notable for metastatic prostate CA ( on Xgeva), HTN, GERD NIDDM who presented to [facility] ED today with 4 days of shortness of breath and generalized weakness. Pt had moderately long flight from [place] on 05/30 and began to have weakness and dyspnea shortly after arriving home. On 06/02 symptoms culminated in pt had near syncopal episode when standing up from toilet and needed to be assisted to floor by . He did not strike head or have LOC. Denies: Chest pain, N/V/D, abd pain, leg pain, melena/ overt bleeding. Today he came to ED. In ED pt was afebrile, hypotensive 86/56, HR 70s, RR 16. Labs notable for lactate 4, h/h 9/29, normal wbc, BUN/Cr 28/1.9 with Hco3 17. Troponin x 2 < 1, # 3 at 1800 at 3.1, BNP pending. LE US revealed popiteal DVT. Heparin gtt was started, transferred to [facility] ICU for overnight observation. - History Source History Provided By: Patient, Medical Record Limitations to Obtaining History: No Limitations - Past Medical History Cardio/Vascular: Yes: HTN Gastrointestinal: Yes: GERD Heme/Onc: Yes: Cancer (prostate with mets to bone) - Alcohol/Substance Use Hx Alcohol Use: Yes (COCKTAIL X1 DAILY) - Smoking History Smoking history: Former smoker Have you smoked in the past 12 months: No Aproximately how many cigarettes per day: 0 If you are a former smoker, when did you quit?: 1984 - Social History Usual Living Arrangement: With Spouse ADL: Independent History of Recent Travel: No Home Medications - Allergies Allergies/Adverse Reactions: Allergies Allergy/AdvReac Type Severity Reaction Status Date / Time No Known Drug Allergies Allergy Verified 06/03/17 08:54 - Home Medications Home Medications: Ambulatory Orders Morphine (Avinza) [Avinza] 30 mg PO BID 06/03/17 Pregabalin [Lyrica] 100 mg PO TID 06/03/17 Venlafaxine HCl ER [Effexor Xr -] 75 mg PO DAILY 06/03/17 Family Disease History - Family Disease History Family History: Unremarkable Review of Systems Findings/Remarks: 10 PT review of symptoms negative except as per HPI (shortness of breath, weakness). Physical Exam Vital Signs: Vital Signs Temperature 97.5 F L 06/03/17 20:00 Pulse Rate 79 06/03/17 20:00 Respiratory Rate 22 06/03/17 20:59 Blood Pressure 118/67 06/03/17 20:00 O2 Sat by Pulse Oximetry (%) 100 06/03/17 20:59 Constitutional: Yes: Well Nourished, No Distress, Calm Eyes: Yes: Conjunctiva Clear, EOM Intact HENT: Yes: Atraumatic, Normocephalic Neck: Yes: Trachea Midline. No: Lymphadenopathy Cardiovascular: Yes: Regular Rate and Rhythm, S1, S2 Respiratory: Yes: Regular, CTA Bilaterally, On Nasal O2. No: Accessory Muscle Use, Tachypnea, Wheezes Gastrointestinal: Yes: Normal Bowel Sounds, Soft. No: Palpable Mass, Tenderness ...Rectal Exam: Yes: Deferred Renal/: Yes: WNL Breast(s): Yes: WNL Musculoskeletal: Yes: WNL Extremities: Yes: WNL. No: Calf Tenderness Edema: No Peripheral Pulses WNL: Yes Integumentary: Yes: WNL Neurological: Yes: WNL ...Motor Strength: WNL Psychiatric: Yes: WNL Labs: CBC, BMP 06/03/17 09:47 06/03/17 09:47 Troponin, BNP 06/03/17 06/03/17 06/03/17 09:47 09:47 18:00 Troponin I 0.36 0.36 3.12 H* Imaging - Results Chest X-ray: Image Reviewed EKG: Image Reviewed (SR with 1st degree AVB, QTC 500, L fasicular block,, non ischemic) Problem List - Problems (1) J CARLOS (acute kidney injury) Code(s): N17.9 - ACUTE KIDNEY FAILURE, UNSPECIFIED (2) Diabetes Code(s): E11.9 - TYPE 2 DIABETES MELLITUS WITHOUT COMPLICATIONS Qualifiers: Diabetes mellitus type: type 2 (3) Hypotension Code(s): I95.9 - HYPOTENSION, UNSPECIFIED Qualifiers: Hypotension type: unspecified hypotension type Qualified Code(s): I95.9 - Hypotension, unspecified (4) Lactic acid acidosis Code(s): E87.2 - ACIDOSIS (5) Prostate cancer metastatic to bone Code(s): C61 - MALIGNANT NEOPLASM OF PROSTATE C79.51 - SECONDARY MALIGNANT NEOPLASM OF BONE (6) Suspected pulmonary embolism Code(s): I26.99 - OTHER PULMONARY EMBOLISM WITHOUT ACUTE COR PULMONALE (7) Weakness Code(s): R53.1 - WEAKNESS Assessment/Plan ASSESSMENT/PLAN: A/ 87yo man with J CARLOS, L popliteal DVT, and presumed PE risk factors prolonged flight, malignancy. Heme: hypercoaguable 2/2 to malignancy, Wells score 7, presumed PE -ECHO ordered: if significant right heart strain, consider IR consult for directed TPA -Heparin gtt --> full therapeutic -NC 2L O2 therapy -Hold CTA for now until renal function improves CV: elevated Troponin I - (0.31 --> 3.12) possibly 2/2 to demand ischemia, increased RV strain -Cardiology consulted - Dr. Guillen -Repeat EKG stat and in AM -Trend cardiac enzymes q6H until peak -Check BNP -Trend lactic acid Renal: J CARLOS due to ? forward flow, dehydration -Strict I&Os (Campbell placed) -Urine studies pending: electrolytes, Cr, protein, Protein/Cr ratio -Continue IVF -Routine CMP, Mg, Phos - kayexalate if K elevated in am ENDO: DM, diabetic nephropathy -Insulin sliding scale ACHS -Hold home medications -Hemoglobin A1c pending -Continue home Pregabalin 100mg TID GI: Gerd -Famotidine 20mg IVPB BID Neuro: pain 2/2 Metastatic prostate cancer -Continue home Morphine 30 mg PO BID -Continue home Pregabalin 100mg TID F/E/N: -NS 100cc/hr -Corrected Na wnl, K high, Replete Mg and Phos pending AM labs -Diabetic/Na restricted diet #Prophylaxis -On PPI -On heparin drip for DVT Ac Russell ACNP [id number] 35 min CCT Critical Care Time/MDM Note Total Critical Care Time: 35 Critical Care Statement: The care of this patient involved high complexity decision making to prevent further life threatening deterioration of the patient 's condition and/or to evaluate & treat vital organ system(s) failure or risk of failure.
[2017-06-03] MEDS ORDERED: PT OWN MED DRAWER 7, Y5N ONE (21:29)
[2017-06-03] MEDS: ASPIRIN/DIPYRIDAMOLE 25 MG/200 MG CAPSULE (FP) PO SCH (21:46)
[2017-06-03] MEDS: morphine SO4 SUSTAINED ACTING 30 MG TABLET.SA PO SCH (21:47)
[2017-06-03] MEDS: FAMOTIDINE 20 MG/50 ML IVPB 50 ML IVPB SCH (21:48)
[2017-06-03] MEDS ORDERED: MORPHINE SULFATE 30 MG PO SCH (22:00)
[2017-06-04 01:15] LABS: TROPONIN I 1.7 ng/ml (0.00-0.05)
[2017-06-04] MEDS: PREGABALIN 50 MG CAPSULE PO SCH ×3 (06:21→21:31)
[2017-06-04] MEDS: INSULIN SLIDING SCALE (NOVOLOG) 1 VIAL SQ SCH ×4 (06:22→21:31)
[2017-06-04 07:10] LABS: BASOPHIL 0.6 % (0-2.0); EOSINOPHIL 0.6 % (0-4.5); MCH 31.4 pg (25.7-33.7); MCHC 32.7 g/dl (32.0-35.9); MEAN CELL VOLUME 96.2 fl (80-96); MEAN PLT VOLUME 8.9 fl (7.5-11.1); NEUTROPHILS 77.4 % (42.8-82.8); PLATELET COUNT 163 K/MM3 (134-434); RDW 16.9 % (11.9-15.9)
[2017-06-04 07:22] LABS: THYROID STIMULATING HORMONE 0.48 uIU/ml (0.358-3.74)
[2017-06-04 07:42] LABS: TROPONIN I 1.35 ng/ml (0.00-0.05)
[2017-06-04 08:03] LABS: ALBUMIN 2.4 g/dl (3.4-5.0); ANION GAP 10 (8-16); BILIRUBIN,TOTAL 0.7 mg/dL (0.2-1.0); CALCIUM 7.2 mg/dL (8.5-10.1); CO2 19 mmol/L (21-32); CREATININE 1.4 mg/dL (0.7-1.3); GLUCOSE,RANDOM 147 mg/dL (74-106); MAGNESIUM 2.1 mg/dL (1.8-2.4); PHOSPHOROUS 2.5 mg/dL (2.5-4.9); SGOT/AST 143 U/L (15-37); SGPT/ALT 48 U/L (12-78); TOT PROT 5.7 g/dl (6.4-8.2)
[2017-06-04 08:04] LABS: ALK PHOS 163 U/L (45-117)
--- NOTE | 2017-06-04 08:25 | PN ---
Physical Exam: SUBJECTIVE: Patient seen and examined be this morning. - Patient continues to endorse SOB and sharp chest pain. Placed on 100% oxygen, now satting in in high 90s - Per Dr. Santillan, Echo notable for enlarged, hypokinetic RV with severe TR and moderate to severe MR - Nephrology consult for CTA for PE given J CARLOS. Recommend dose of mucomyst before IV contrast given and Mucomyst x2 post CTA. - Plan for IR thrombectomy pending CT PM: - CTA positive for saddle embolus. Plan for IR throbectomy and/or tPa. - Mucomyst x2 post-procedure BID per renal rec OBJECTIVE: Intake & Output 06/01/17 06/02/17 06/03/17 06/04/17 23:59 23:59 23:59 23:59 Intake Total 1520 1240 Output Total 420 500 Balance 1100 740 Weight 81 kg 83.325 kg Vital Signs Period Temp Pulse Resp BP Sys/Kim Pulse Ox Last 24 Hr 97.3 F-97.8 F 74-81 12-22 106-135/54-79 99-100 GENERAL: The patient is awake, alert, and fully oriented, with mild respiratory discomfort, especially when moving. HEAD: Normal with no signs of trauma. EYES: PERRL, extraocular movements intact, sclera anicteric, conjunctiva clear. No ptosis. ENT: Oropharynx clear without exudates, moist mucous membranes. NECK: Trachea midline, full range of motion, supple. LUNGS: Breath sounds equal, clear to auscultation bilaterally, no wheezes, no crackles, labored breathing w/ minimal exertion HEART: Regular rate and rhythm, S1, S2 without murmur, rub or gallop. ABDOMEN: Soft, nontender, nondistended, normoactive bowel sounds, no guarding, no rebound, no hepatosplenomegaly, no masses. EXTREMITIES: 2+ pulses, warm, well-perfused, no edema. Negative zack's sign NEUROLOGICAL: Cranial nerves II through XII grossly intact. Normal speech, with occasional aphasia. SKIN: Warm, dry, normal turgor. Ecchymoses on L UE forearm. Laboratory Results - last 24 hr 06/03/17 06/03/17 06/03/17 16:50 18:00 18:00 WBC RBC Hgb Hct MCV MCH MCHC RDW Plt Count MPV Neutrophils % Lymphocytes % Monocytes % Eosinophils % Basophils % PTT (Actin FS) Sodium Potassium Chloride Carbon Dioxide Anion Gap BUN Creatinine Creat Clearance w eGFR POC Glucometer [phone] Random Glucose Lactic Acid 4.5 H* Calcium Phosphorus Magnesium Total Bilirubin AST ALT Alkaline Phosphatase Creatine Kinase 1883 H Creatine Kinase Index 1.0 CK-MB (CK-2) 20.338 H Troponin I 3.12 H* B-Natriuretic Peptide Total Protein Albumin TSH Urine Protein U Random Total Protein Ur Random Sodium Ur Random Potassium Ur Random Chloride Urine Creatinine Protein/Creatinin Ratio 06/03/17 06/03/17 06/03/17 18:15 18:15 18:15 WBC RBC Hgb Hct MCV MCH MCHC RDW Plt Count MPV Neutrophils % Lymphocytes % Monocytes % Eosinophils % Basophils % PTT (Actin FS) Sodium Potassium Chloride Carbon Dioxide Anion Gap BUN Creatinine Creat Clearance w eGFR POC Glucometer Random Glucose Lactic Acid Calcium Phosphorus Magnesium Total Bilirubin AST ALT Alkaline Phosphatase Creatine Kinase Creatine Kinase Index CK-MB (CK-2) Troponin I B-Natriuretic Peptide Total Protein Albumin TSH Urine Protein 206 U Random Total Protein 206 H Ur Random Sodium 17 Ur Random Potassium 62.2 Ur Random Chloride 12 Urine Creatinine 223.0 Protein/Creatinin Ratio 0.9 06/03/17 06/03/17 06/04/17 19:43 21:44 00:05 WBC RBC Hgb Hct MCV MCH MCHC RDW Plt Count MPV Neutrophils % Lymphocytes % Monocytes % Eosinophils % Basophils % PTT (Actin FS) 45.6 H Sodium Potassium Chloride Carbon Dioxide Anion Gap BUN Creatinine Creat Clearance w eGFR POC Glucometer [phone] Random Glucose Lactic Acid Calcium Phosphorus Magnesium Total Bilirubin AST ALT Alkaline Phosphatase Creatine Kinase 1654 H Creatine Kinase Index CK-MB (CK-2) Troponin I 1.70 H* D B-Natriuretic Peptide Total Protein Albumin TSH Urine Protein U Random Total Protein Ur Random Sodium Ur Random Potassium Ur Random Chloride Urine Creatinine Protein/Creatinin Ratio 06/04/17 06/04/17 06/04/17 00:05 00:05 00:05 WBC RBC Hgb Hct MCV MCH MCHC RDW Plt Count MPV Neutrophils % Lymphocytes % Monocytes % Eosinophils % Basophils % PTT (Actin FS) 65.6 H D Sodium Potassium Chloride Carbon Dioxide Anion Gap BUN Creatinine Creat Clearance w eGFR POC Glucometer Random Glucose Lactic Acid 2.3 H* Calcium Phosphorus Magnesium Total Bilirubin AST ALT Alkaline Phosphatase Creatine Kinase Creatine Kinase Index CK-MB (CK-2) Troponin I B-Natriuretic Peptide 98598.60 H Total Protein Albumin TSH Urine Protein U Random Total Protein Ur Random Sodium Ur Random Potassium Ur Random Chloride Urine Creatinine Protein/Creatinin Ratio 06/04/17 06/04/17 06/04/17 05:40 05:40 05:40 WBC 9.0 D RBC 2.99 L Hgb 9.4 L D Hct 28.8 L D MCV 96.2 H MCH 31.4 MCHC 32.7 RDW 16.9 H D Plt Count 163 D MPV 8.9 Neutrophils % 77.4 D Lymphocytes % 11.2 D Monocytes % 10.2 Eosinophils % 0.6 D Basophils % 0.6 PTT (Actin FS) Sodium 137 Potassium 4.7 Chloride 108 H Carbon Dioxide 19 L D Anion Gap 10 BUN 26 H D Creatinine 1.4 H D Creat Clearance w eGFR 48.16 POC Glucometer Random Glucose 147 H Lactic Acid 1.4 Calcium 7.2 L Phosphorus 2.5 D Magnesium 2.1 Total Bilirubin 0.7 AST 143 H ALT 48 Alkaline Phosphatase 163 H Creatine Kinase Creatine Kinase Index CK-MB (CK-2) Troponin I B-Natriuretic Peptide Total Protein 5.7 L Albumin 2.4 L TSH 0.48 Urine Protein U Random Total Protein Ur Random Sodium Ur Random Potassium Ur Random Chloride Urine Creatinine Protein/Creatinin Ratio 06/04/17 06/04/17 06/04/17 05:40 05:40 05:40 WBC RBC Hgb Hct MCV MCH MCHC RDW Plt Count MPV Neutrophils % Lymphocytes % Monocytes % Eosinophils % Basophils % PTT (Actin FS) 49.4 H Sodium Potassium Chloride Carbon Dioxide Anion Gap BUN Creatinine Creat Clearance w eGFR POC Glucometer Random Glucose Lactic Acid Calcium Phosphorus Magnesium Total Bilirubin AST ALT Alkaline Phosphatase Creatine Kinase 1798 H Creatine Kinase Index CK-MB (CK-2) Troponin I 1.35 H* B-Natriuretic Peptide 72612.61 H Total Protein Albumin TSH Urine Protein U Random Total Protein Ur Random Sodium Ur Random Potassium Ur Random Chloride Urine Creatinine Protein/Creatinin Ratio 06/04/17 06:10 WBC RBC Hgb Hct MCV MCH MCHC RDW Plt Count MPV Neutrophils % Lymphocytes % Monocytes % Eosinophils % Basophils % PTT (Actin FS) Sodium Potassium Chloride Carbon Dioxide Anion Gap BUN Creatinine Creat Clearance w eGFR POC Glucometer 176.26450 Random Glucose Lactic Acid Calcium Phosphorus Magnesium Total Bilirubin AST ALT Alkaline Phosphatase Creatine Kinase Creatine Kinase Index CK-MB (CK-2) Troponin I B-Natriuretic Peptide Total Protein Albumin TSH Urine Protein U Random Total Protein Ur Random Sodium Ur Random Potassium Ur Random Chloride Urine Creatinine Protein/Creatinin Ratio US Renal and urinary bladder ultrasound 06/03/17: The right kidney measures 10.4 cm in sagittal with a simple cyst in its lower pole measuring 1.1 cm Left kidney measures 9.5 cm in sagittal length with a simple cyst in its lower pole measuring 1.1 cm. There is no evidence of hydronephrosis or renal stones, bilaterally Visualized portion of the liver appears unremarkable. An unclamped Gimenez catheter is present in an empty urinary bladder and hence it could not be evaluated. Prostate gland was not visualized. IMPRESSION: Small simple cyst in the right and left kidney. Both kidneys appear unremarkable. Empty urinary bladder. Gimenez catheter was not clamped. Reported By: Tray Mead MD 06/03/17 1511 Bilateral leg Doppler venous ultrasound 06/03/17: Grayscale, pulsed Doppler and color Doppler interrogation of both lower extremities deep venous system was performed. There is no evidence of deep venous thromboses in the right lower extremity. In the left lower extremity, there is incomplete compression of the popliteal vein consistent with thrombosis. The left common femoral vein, superficial femoral and popliteal vein are patent without evidence of thrombosis. Visualized portion of the greater saphenous and deep femoral vein are patent without evidence of thrombosis. No Cherry's cyst is identified in the popliteal fossa, bilaterally. IMPRESSION: Findings consistent with deep venous thromboses in the left lower extremity involving the popliteal vein. Reported By: Tray Mead MD 06/03/17 1508 EKst degree AV block. LAD. Left anterior fasicular block. No evidence of STEMI or RV strain pattern. CXR (06/03) - No evidence of PNA, pneumothorax or pleural effusion. Mild cardiomegaly. CTA (06/04) - Per my read, bilateral saddle embolus in R and L PA. Flattening of interventricular septum and RV enlargement, indicative of RV strain. Active Medications Generic Name Dose Route Start Last Admin Trade Name Freq PRN Reason Stop Dose Admin Dipyridamole/Aspirin 1 combo 06/03/17 22:00 06/03/17 21:46 Aggrenox - PO 1 combo BID MANNY Administration Heparin Sodium (Porcine) 1,000 unit 06/03/17 16:23 06/03/17 21:00 Heparin - IVPUSH 1,000 unit PRN PRN Administration Heparin Heparin Sodium (Porcine) 5,000 unit 06/03/17 16:23 Heparin - IVPUSH PRN PRN Heparin Heparin Sodium (Porcine) 25, 500 mls @ 20 mls/hr 06/03/17 10:30 06/03/17 21:00 000 unit/ Sodium Chloride IV 1,100 unit/hr TITR MANNY Titration Protocol 1,000 UNIT/HR Famotidine/Sodium Chloride 50 mls @ 100 mls/hr 06/03/17 22:00 06/03/17 21:48 Pepcid 20 Mg Premixed Ivpb - IVPB 100 mls/hr BID MANNY Administration Insulin Aspart 1 vial 06/03/17 16:30 06/04/17 06:22 Novolog Vial Sliding Scale - SQ 2 units ACHS MANNY Administration Protocol Morphine Sulfate 30 mg 06/03/17 22:00 06/03/17 21:47 Ms Contin - PO 30 mg BID MANNY Administration Pregabalin 100 mg 06/03/17 14:00 06/04/17 06:21 Lyrica - PO 100 mg TID MANNY Administration Venlafaxine HCl 75 mg 06/04/17 10:00 Effexor Xr - PO DAILY MANNY ASSESSMENT/PLAN: 87 yo man with pmh of metastatic prostate Ca and HTN, now with J CARLOS, L popliteal DVT and CTA-confirmed saddle embolus in setting of two days of acute SOB following plane flight back from [place] on 05/30. AM Echo consistent with R heart strain. CTA delayed overnight due to J CARLOS, however creatinine downtrending from 1.9 to 1.4. Pt given mucomyst per renal recommendation before CTA. Pt going for IR thrombectomy immediately following CTA. F/u Echo and mucomyst/IVF following procedure. #Neuro Monitor MS MS contin 30mg BID for hip pain/metastatic dz Lyrica 100mg TID for neuropathy #Cardiac Post-thrombectomy Echo Trend BNP Cardiology recommendations appreciated #Pulm NC 2L O2 tx. Titrate to >94% O2 sat f/u CTA results CXR tomorrow #Heme Transition to LMWH from heparin gtt Will require lifelong AC Continue home Aggrenox #Renal Mucomyst 1200mg x2 (midnight, 12PM tomorrow) for renal protection IVF NS 100ml/hr Trend BUN, Cr PM BMP post-op Strict I&Os (gimenez placed) #GI Famotidine 20mg IVPB BID for GERD #Endo Insulin ss ACHS Hold home medications f/u Hemoglobin A1c #Psych Venlafaxine 75 mg PO #FEN Fluids: NS 100ml/hr Electrolytes: Repeat BMP in PM. Routine lytes Nutrition: Cardiac diet Dispo: Will require ICU observation post-thrombectomy. Inocencio Cortes, PGY1 Plan discussed with Attending, Dr. Shanks Visit type - Emergency Visit Emergency Visit: No - New Patient This patient is new to me today: Yes Date on this admission: 06/04/17 - Critical Care Critical Care patient: Yes Total Critical Care Time (in minutes): 45 Critical Care Statement: The care of this patient involved high complexity decision making to prevent further life threatening deterioration of the patient 's condition and/or to evaluate & treat vital organ system(s) failure or risk of failure.
--- NOTE | 2017-06-04 08:46 | PN ---
Progress Note (short form) - Note Progress Note: Subjective: The patient was seen and examined at the bedside, he has no complaints at this time. LLE DVT, elevated trops and BNP overnight ECHO performed this AM, spoke to Dr. Santillan who will read the ECHO stat, if RV strain or bowing noted, will contact IR for tpa Current Medications Generic Name Dose Route Start Last Admin Trade Name Freq PRN Reason Stop Dose Admin Dipyridamole/Aspirin 1 combo 06/03/17 22:00 06/03/17 21:46 Aggrenox - PO 1 combo BID MANNY Administration Heparin Sodium (Porcine) 1,000 unit 06/03/17 16:23 06/04/17 09:07 Heparin - IVPUSH 1,000 unit PRN PRN Administration Heparin Heparin Sodium (Porcine) 5,000 unit 06/03/17 16:23 Heparin - IVPUSH PRN PRN Heparin Heparin Sodium (Porcine) 25, 500 mls @ 20 mls/hr 06/03/17 10:30 06/04/17 09:08 000 unit/ Sodium Chloride IV 1,200 unit/hr TITR MANNY Titration Protocol 1,000 UNIT/HR Famotidine/Sodium Chloride 50 mls @ 100 mls/hr 06/03/17 22:00 06/04/17 09:27 Pepcid 20 Mg Premixed Ivpb - IVPB 100 mls/hr BID MANNY Administration Insulin Aspart 1 vial 06/03/17 16:30 06/04/17 06:22 Novolog Vial Sliding Scale - SQ 2 units ACHS MANNY Administration Protocol Morphine Sulfate 30 mg 06/03/17 22:00 06/04/17 09:27 Ms Contin - PO 30 mg BID MANNY Administration Pregabalin 100 mg 06/03/17 14:00 06/04/17 06:21 Lyrica - PO 100 mg TID MANNY Administration Venlafaxine HCl 75 mg 06/04/17 10:00 Effexor Xr - PO DAILY MANNY Objective: Vital Signs Period Temp Pulse Resp BP Sys/Kim Pulse Ox Last 24 Hr 97.3 F-97.8 F 60-81 12-22 87-135/54-79 98-100 Physical Exam: General: NAD, A&Ox3 Lungs: CTA bilaterally Heart: RRR, S1S2 Abd: Soft, non-tender, non-distended. Normoactive bowel sounds Ext: 2+ DP/PT bilaterally Neuro: no focal deficits CBCD WBC 9.0 K/mm3 (4.0-10.0) D 06/04/17 05:40 RBC 2.99 M/mm3 (4.00-5.60) L 06/04/17 05:40 Hgb 9.4 GM/dL (11.7-16.9) L D 06/04/17 05:40 Hct 28.8 % (35.4-49) L D 06/04/17 05:40 MCV 96.2 fl (80-96) H 06/04/17 05:40 MCHC 32.7 g/dl (32.0-35.9) 06/04/17 05:40 RDW 16.9 % (11.9-15.9) H D 06/04/17 05:40 Plt Count 163 K/MM3 (134-434) D 06/04/17 05:40 MPV 8.9 fl (7.5-11.1) 06/04/17 05:40 CMP Sodium 137 mmol/L (136-145) 06/04/17 05:40 Potassium 4.7 mmol/L (3.5-5.1) 06/04/17 05:40 Chloride 108 mmol/L (98-107) H 06/04/17 05:40 Carbon Dioxide 19 mmol/L (21-32) L D 06/04/17 05:40 Anion Gap 10 (8-16) 06/04/17 05:40 BUN 26 mg/dL (7-18) H D 06/04/17 05:40 Creatinine 1.4 mg/dL (0.7-1.3) H D 06/04/17 05:40 Creat Clearance w eGFR 48.16 (>60) 06/04/17 05:40 Random Glucose 147 mg/dL (74-106) H 06/04/17 05:40 Calcium 7.2 mg/dL (8.5-10.1) L 06/04/17 05:40 Total Bilirubin 0.7 mg/dL (0.2-1.0) 06/04/17 05:40 AST 143 U/L (15-37) H 06/04/17 05:40 ALT 48 U/L (12-78) 06/04/17 05:40 Alkaline Phosphatase 163 U/L (45-117) H 06/04/17 05:40 Total Protein 5.7 g/dl (6.4-8.2) L 06/04/17 05:40 Albumin 2.4 g/dl (3.4-5.0) L 06/04/17 05:40 CARDIAC ENZYMES Creatine Kinase 1798 IU/L (39-308) H 06/04/17 05:40 Troponin I 1.35 ng/ml (0.00-0.05) H* 06/04/17 05:40 Microbiology 06/03/17 09:40 Blood - Peripheral Venous Blood Culture - Preliminary NO GROWTH OBTAINED AFTER 24 HOURS, INCUBATION TO CONTINUE FOR 4 DAYS. Assessment: This is an 87 year old male with PMHx of prostate cancer, COPD, PE? years ago, NIDDM, anxiety, who presented to the ED with shortness of breath and weakness after a trip to [place]. Plan: 1) LLE popliteal DVT - Continue Heparin gtt 2) Probable PE - ECHO performed this AM, awaiting read by acute care nursing assistant - Elevated trop and BNP - If RV strain or septal bowing on ECHO will consult IR for directed tpa - O2 via NC as needed - CTA not performed 2/2 J CARLOS - F/u pulmonary consult 3) Elevated troponins - Trending down, peaked at 3.12 - Possibly due to demand ischemia? - F/u AM EKG - Continue to trend 4) Elevated BNP - New onset CHF vs. RV strain - F/u ECHO - Continue Heparin gtt - F/u cardiology consult 5) J CARLOS - Improving - Possibly 2/2 retention? - Continue gimenez catheter - F/u urine studies - Continue to trend 6) NIDDM - BGM ACHS - ISS ACHS - F/u HgbA1c 7) Prostate cancer - On Xgeva monthly - Stable 8) F/E/N: - Diabetic, sodium controlled diet - Monitor electrolytes 9) Prophylaxis: - On Heparin gtt 10) Dispo: - Requires continued ICU care CODE STATUS: FULL CODE Visit type - Emergency Visit Emergency Visit: Yes ED Registration Date: 06/03/17 Care time: The patient presented to the Emergency Department on the above date and was hospitalized for further evaluation of their emergent condition. - New Patient This patient is new to me today: Yes Date on this admission: 06/04/17 - Critical Care Critical Care patient: Yes Total Critical Care Time (in minutes): 45 Critical Care Statement: The care of this patient involved high complexity decision making to prevent further life threatening deterioration of the patient 's condition and/or to evaluate & treat vital organ system(s) failure or risk of failure.
[2017-06-04] MEDS: HEPARIN NA (PORCINE) 5,000 UNITS/ML 1ML VIAL IVPUSH PRN (09:07)
[2017-06-04] MEDS ORDERED: PT OWN MED DRAWER 7, Y5N ONE (09:22)
[2017-06-04] MEDS: FAMOTIDINE 20 MG/50 ML IVPB 50 ML IVPB SCH ×2 (09:27→21:30)
[2017-06-04] MEDS: morphine SO4 SUSTAINED ACTING 30 MG TABLET.SA PO SCH ×2 (09:27→21:31)
[2017-06-04] MEDS: HEPARIN - 25,000 UNIT in SODIUM CHLORIDE 495 ML IV SCH (11:59)
--- NOTE | 2017-06-04 12:00 | PN ---
Teaching Attending Note Name of Resident: Inocencio Cortes ATTENDING PHYSICIAN STATEMENT I saw and evaluated the patient. I reviewed the resident's note and discussed the case with the resident. I agree with the resident's findings and plan as documented. SUBJECTIVE: Pt seen and examined in the ICU. Remains short of breath with anterior chest pain described as sharp. On NRB, fingertips cyanotic, unable to obtain reliable saturations. Echocardiogram done this AM showing RV dilatation and evidence of strain. OBJECTIVE: Last Vital Signs Temp Pulse Resp BP Pulse Ox 98.3 F 87 25 H 113/40 92 L 06/04/17 10:00 06/04/17 10:00 06/04/17 10:00 06/04/17 10:00 06/04/17 09:00 Intake & Output 06/01/17 06/02/17 06/03/17 06/04/17 23:59 23:59 23:59 23:59 Intake Total 1520 1360 Output Total 420 500 Balance 1100 860 Weight 178 lb 9.191 oz 183 lb 11.2 oz Gen: tachypneic at rest Heart: RRR Lung: decreased breath sounds at the bases Abd: soft, nontender Ext: no edema CBC, BMP 06/04/17 05:40 06/04/17 05:40 Active Medications Acetylcysteine (Mucomyst 20 Oral / Inh Use Only*) 1,200 mg PO ONCE ONE Stop: 06/04/17 11:06 Dipyridamole/Aspirin (Aggrenox -) 1 combo PO BID MANNY Last Admin: 06/03/17 21:46 Dose: 1 combo Heparin Sodium (Porcine) (Heparin -) 1,000 unit IVPUSH PRN PRN PRN Reason: Heparin Last Admin: 06/04/17 09:07 Dose: 1,000 unit Heparin Sodium (Porcine) (Heparin -) 5,000 unit IVPUSH PRN PRN PRN Reason: Heparin Heparin Sodium (Porcine) 25, (000 unit/ Sodium Chloride) 500 mls @ 20 mls/hr IV TITR MANNY; 1,000 UNIT/HR PRN Reason: Protocol Last Titration: 06/04/17 09:08 Dose: 1,200 unit/hr Famotidine/Sodium Chloride (Pepcid 20 Mg Premixed Ivpb -) 50 mls @ 100 mls/hr IVPB BID MANNY Last Admin: 06/04/17 09:27 Dose: 100 mls/hr Insulin Aspart (Novolog Vial Sliding Scale -) 1 vial SQ ACHS [facility] PRN Reason: Protocol Last Admin: 06/04/17 06:22 Dose: 2 units Morphine Sulfate (Ms Contin -) 30 mg PO BID [facility] Last Admin: 06/04/17 09:27 Dose: 30 mg Pregabalin (Lyrica -) 100 mg PO TID [facility] Last Admin: 06/04/17 06:21 Dose: 100 mg Venlafaxine HCl (Effexor Xr -) 75 mg PO DAILY [facility] ASSESSMENT AND PLAN: Likely Pulmonary Embolism LLE DVT +Troponins likely from above Lactic Acidosis Acute Kidney Injury Metastatic Prostate Ca h/o PE DM - f/u official echo read - discussed with IR, will go for confirmatory CTA to map for catheter directed thrombolectomy/thrombolysis - continue heparin gtt - once invasive procedures completed, transition to LMWH - will need life long anticoagulation - mucomyst, IVF prior to CTA, pt at risk for contrast induced nephropathy - monitor urine output, creatinine - O2 to keep spo2 >90% - continue ICU monitoring critical care time spent in reviewing chart, evaluating patient and formulating plan 38 min
[2017-06-04] MEDS: ASPIRIN/DIPYRIDAMOLE 25 MG/200 MG CAPSULE (FP) PO SCH ×2 (12:11→21:31)
[2017-06-04] MEDS: VENLAFAXINE HCL 75 MG E.R. CAPSULES (FP) PO SCH (12:11)
--- NOTE | 2017-06-04 12:11 | CON.CARD ---
Consult Consult Specialty:: Cardiology Referred by:: Hospitalist Reason for Consultation:: Cardiac evaluation - History of Present Illness Chief Complaint: Shortness of breath History of Present Illness: Patient is an 87 year male with underlying history of metastatic prostate CA (previous chemotherapy and radiation therapy), hypertension, NIDDM and history of SBO in the past now presents with increase in shortness of breath and weakness. He recently flew to [place] where he started to complain of weakness and fatigue, but did not seek medical attention. He took a flight back to [place], but due to persistent symptoms, he came in for further evaluation. Evaluation reveals lactic acid, elevated troponin, left popliteal DVT and transthoracic echocardiography finding suggesting RV strain, decreased RV function, dilatation and severe TR compatible with acute PE. He is on Heparin drip and currently admitted to ICU. IR guided thrombectomy and possible TPA infusion is being planned. He is on O2 via NRB, but awake and alert. He is complaining of shortness of breath. He denies chest pain or palpitations. He denies fever or chills. He denies headache or lightheadedness. Cardiology consultation was called for further evaluation. Patient had seen Dr. Rox Maynard, Mental Health Aide in [facility] once in the recent past, but otherwise all other medical care has been with [facility] - History Source History Provided By: Patient, Family Member, Medical Record Limitations to Obtaining History: No Limitations - Past Medical History Cardio/Vascular: Yes: HTN Pulmonary: Yes: Pulmonary Embolus (25 years ago) Gastrointestinal: Yes: GERD Heme/Onc: Yes: Anemia - Alcohol/Substance Use Hx Alcohol Use: Yes (COCKTAIL X1 DAILY) - Smoking History Smoking history: Former smoker Have you smoked in the past 12 months: No Aproximately how many cigarettes per day: 0 If you are a former smoker, when did you quit?: 1984 - Social History Usual Living Arrangement: With Spouse ADL: Independent History of Recent Travel: No Home Medications - Allergies Allergies/Adverse Reactions: Allergies Allergy/AdvReac Type Severity Reaction Status Date / Time No Known Drug Allergies Allergy Verified 06/03/17 08:54 - Home Medications Home Medications: Ambulatory Orders Morphine (Avinza) [Avinza] 30 mg PO BID 06/03/17 Pregabalin [Lyrica] 100 mg PO TID 06/03/17 Venlafaxine HCl ER [Effexor Xr -] 75 mg PO DAILY 06/03/17 Review of Systems - Review of Systems Constitutional: denies: Chills, Fever Cardiovascular: reports: Shortness of Breath. denies: Chest Pain, Palpitations Respiratory: reports: SOB. denies: Orthopnea, PND Gastrointestinal: denies: Abdominal Pain, Constipation, Diarrhea, Melena, Nausea , Rectal Bleeding, Vomiting Neurological: reports: Weakness. denies: Dizziness, Headache, Seizure, Syncope Vital Signs: Vital Signs Temperature 98.3 F 06/04/17 10:00 Pulse Rate 87 06/04/17 10:00 Respiratory Rate 25 H 06/04/17 10:00 Blood Pressure 113/40 06/04/17 10:00 O2 Sat by Pulse Oximetry (%) 92 L 06/04/17 09:00 Neck: Yes: Supple Respiratory: Yes: Diminished Gastrointestinal: Yes: Normal Bowel Sounds, Soft. No: Tenderness Cardiovascular: Yes: Regular Rate and Rhythm JVD: No Carotid Bruit: No PMI: Non-Displaced Heart Sounds: Yes: S1, S2. No: Gallop Edema: No - Other Data Labs, Other Data: CBC, BMP 06/04/17 05:40 06/04/17 05:40 INR, PTT INR 1.22 (0.82-1.09) 06/03/17 09:47 Troponin, BNP 06/03/17 06/04/17 06/04/17 18:00 00:05 00:05 Troponin I 3.12 H* 1.70 H* D B-Natriuretic Peptide 39441.60 H 06/04/17 06/04/17 05:40 05:40 Troponin I 1.35 H* B-Natriuretic Peptide 60823.61 H Troponin, BNP Laboratory Results - last 24 hr 06/03/17 06/03/17 06/03/17 09:47 11:56 11:56 WBC RBC Hgb Hct MCV MCH MCHC RDW Plt Count MPV Neutrophils % Lymphocytes % Monocytes % Eosinophils % Basophils % PTT (Actin FS) VBG pH 7.29 L POC VBG pCO2 41.9 POC VBG pO2 38.7 L* Mixed VBG HCO3 19.4 L Sodium Potassium Chloride Carbon Dioxide Anion Gap BUN Creatinine Creat Clearance w eGFR POC Glucometer Random Glucose Lactic Acid 4.9 H* 2.2 H* Calcium Phosphorus Magnesium Total Bilirubin AST ALT Alkaline Phosphatase Creatine Kinase Creatine Kinase Index CK-MB (CK-2) Troponin I B-Natriuretic Peptide Total Protein Albumin TSH Urine Color Urine Appearance Urine pH Ur Specific Bowen Urine Protein Urine Glucose (UA) Urine Ketones Urine Blood Urine Nitrite Urine Bilirubin Urine Urobilinogen Ur Leukocyte Esterase Urine RBC Urine WBC Ur Epithelial Cells Amorphous Urates Urine Casts Hyaline Casts Waxy Casts Urine Mucus U Random Total Protein Ur Random Sodium Ur Random Potassium Ur Random Chloride Urine Creatinine Protein/Creatinin Ratio 06/03/17 06/03/17 06/03/17 12:54 13:06 16:50 WBC RBC Hgb Hct MCV MCH MCHC RDW Plt Count MPV Neutrophils % Lymphocytes % Monocytes % Eosinophils % Basophils % PTT (Actin FS) VBG pH POC VBG pCO2 POC VBG pO2 Mixed VBG HCO3 Sodium Potassium Chloride Carbon Dioxide Anion Gap BUN Creatinine Creat Clearance w eGFR POC Glucometer 122.38671 170.93315 Random Glucose Lactic Acid Calcium Phosphorus Magnesium Total Bilirubin AST ALT Alkaline Phosphatase Creatine Kinase Creatine Kinase Index CK-MB (CK-2) Troponin I B-Natriuretic Peptide Total Protein Albumin TSH Urine Color Yellow Urine Appearance Slightly Urine pH 5.5 Ur Specific Bowen >= 1.030 H Urine Protein 3+ H D Urine Glucose (UA) Negative Urine Ketones Trace Urine Blood 2+ H Urine Nitrite Negative Urine Bilirubin 1+ H Urine Urobilinogen 0.2 Ur Leukocyte Esterase Negative Urine RBC 3-5 Urine WBC 0-1 Ur Epithelial Cells 0-3 Amorphous Urates Many Urine Casts Coarse granular 0-2 Hyaline Casts 1-3 Waxy Casts 0-1 Urine Mucus 1+ U Random Total Protein Ur Random Sodium Ur Random Potassium Ur Random Chloride Urine Creatinine Protein/Creatinin Ratio 06/03/17 06/03/17 06/03/17 18:00 18:00 18:15 WBC RBC Hgb Hct MCV MCH MCHC RDW Plt Count MPV Neutrophils % Lymphocytes % Monocytes % Eosinophils % Basophils % PTT (Actin FS) VBG pH POC VBG pCO2 POC VBG pO2 Mixed VBG HCO3 Sodium Potassium Chloride Carbon Dioxide Anion Gap BUN Creatinine Creat Clearance w eGFR POC Glucometer Random Glucose Lactic Acid 4.5 H* Calcium Phosphorus Magnesium Total Bilirubin AST ALT Alkaline Phosphatase Creatine Kinase 1883 H Creatine Kinase Index 1.0 CK-MB (CK-2) 20.338 H Troponin I 3.12 H* B-Natriuretic Peptide Total Protein Albumin TSH Urine Color Urine Appearance Urine pH Ur Specific Bowen Urine Protein 206 Urine Glucose (UA) Urine Ketones Urine Blood Urine Nitrite Urine Bilirubin Urine Urobilinogen Ur Leukocyte Esterase Urine RBC Urine WBC Ur Epithelial Cells Amorphous Urates Urine Casts Hyaline Casts Waxy Casts Urine Mucus U Random Total Protein Ur Random Sodium Ur Random Potassium Ur Random Chloride Urine Creatinine Protein/Creatinin Ratio 06/03/17 06/03/17 06/03/17 18:15 18:15 19:43 WBC RBC Hgb Hct MCV MCH MCHC RDW Plt Count MPV Neutrophils % Lymphocytes % Monocytes % Eosinophils % Basophils % PTT (Actin FS) 45.6 H VBG pH POC VBG pCO2 POC VBG pO2 Mixed VBG HCO3 Sodium Potassium Chloride Carbon Dioxide Anion Gap BUN Creatinine Creat Clearance w eGFR POC Glucometer Random Glucose Lactic Acid Calcium Phosphorus Magnesium Total Bilirubin AST ALT Alkaline Phosphatase Creatine Kinase Creatine Kinase Index CK-MB (CK-2) Troponin I B-Natriuretic Peptide Total Protein Albumin TSH Urine Color Urine Appearance Urine pH Ur Specific Bowen Urine Protein Urine Glucose (UA) Urine Ketones Urine Blood Urine Nitrite Urine Bilirubin Urine Urobilinogen Ur Leukocyte Esterase Urine RBC Urine WBC Ur Epithelial Cells Amorphous Urates Urine Casts Hyaline Casts Waxy Casts Urine Mucus U Random Total Protein 206 H Ur Random Sodium 17 Ur Random Potassium 62.2 Ur Random Chloride 12 Urine Creatinine 223.0 Protein/Creatinin Ratio 0.9 06/03/17 06/04/17 06/04/17 21:44 00:05 00:05 WBC RBC Hgb Hct MCV MCH MCHC RDW Plt Count MPV Neutrophils % Lymphocytes % Monocytes % Eosinophils % Basophils % PTT (Actin FS) VBG pH POC VBG pCO2 POC VBG pO2 Mixed VBG HCO3 Sodium Potassium Chloride Carbon Dioxide Anion Gap BUN Creatinine Creat Clearance w eGFR POC Glucometer 211.34508 Random Glucose Lactic Acid 2.3 H* Calcium Phosphorus Magnesium Total Bilirubin AST ALT Alkaline Phosphatase Creatine Kinase 1654 H Creatine Kinase Index CK-MB (CK-2) Troponin I 1.70 H* D B-Natriuretic Peptide Total Protein Albumin TSH Urine Color Urine Appearance Urine pH Ur Specific Bowen Urine Protein Urine Glucose (UA) Urine Ketones Urine Blood Urine Nitrite Urine Bilirubin Urine Urobilinogen Ur Leukocyte Esterase Urine RBC Urine WBC Ur Epithelial Cells Amorphous Urates Urine Casts Hyaline Casts Waxy Casts Urine Mucus U Random Total Protein Ur Random Sodium Ur Random Potassium Ur Random Chloride Urine Creatinine Protein/Creatinin Ratio 06/04/17 06/04/17 06/04/17 00:05 00:05 05:40 WBC 9.0 D RBC 2.99 L Hgb 9.4 L D Hct 28.8 L D MCV 96.2 H MCH 31.4 MCHC 32.7 RDW 16.9 H D Plt Count 163 D MPV 8.9 Neutrophils % 77.4 D Lymphocytes % 11.2 D Monocytes % 10.2 Eosinophils % 0.6 D Basophils % 0.6 PTT (Actin FS) 65.6 H D VBG pH POC VBG pCO2 POC VBG pO2 Mixed VBG HCO3 Sodium Potassium Chloride Carbon Dioxide Anion Gap BUN Creatinine Creat Clearance w eGFR POC Glucometer Random Glucose Lactic Acid Calcium Phosphorus Magnesium Total Bilirubin AST ALT Alkaline Phosphatase Creatine Kinase Creatine Kinase Index CK-MB (CK-2) Troponin I B-Natriuretic Peptide 93123.60 H Total Protein Albumin TSH Urine Color Urine Appearance Urine pH Ur Specific Bowen Urine Protein Urine Glucose (UA) Urine Ketones Urine Blood Urine Nitrite Urine Bilirubin Urine Urobilinogen Ur Leukocyte Esterase Urine RBC Urine WBC Ur Epithelial Cells Amorphous Urates Urine Casts Hyaline Casts Waxy Casts Urine Mucus U Random Total Protein Ur Random Sodium Ur Random Potassium Ur Random Chloride Urine Creatinine Protein/Creatinin Ratio 06/04/17 06/04/17 06/04/17 05:40 05:40 05:40 WBC RBC Hgb Hct MCV MCH MCHC RDW Plt Count MPV Neutrophils % Lymphocytes % Monocytes % Eosinophils % Basophils % PTT (Actin FS) VBG pH POC VBG pCO2 POC VBG pO2 Mixed VBG HCO3 Sodium 137 Potassium 4.7 Chloride 108 H Carbon Dioxide 19 L D Anion Gap 10 BUN 26 H D Creatinine 1.4 H D Creat Clearance w eGFR 48.16 POC Glucometer Random Glucose 147 H Lactic Acid 1.4 Calcium 7.2 L Phosphorus 2.5 D Magnesium 2.1 Total Bilirubin 0.7 AST 143 H ALT 48 Alkaline Phosphatase 163 H Creatine Kinase 1798 H Creatine Kinase Index 0.4 CK-MB (CK-2) 8.453 H Troponin I 1.35 H* B-Natriuretic Peptide Total Protein 5.7 L Albumin 2.4 L TSH 0.48 Urine Color Urine Appearance Urine pH Ur Specific Bowen Urine Protein Urine Glucose (UA) Urine Ketones Urine Blood Urine Nitrite Urine Bilirubin Urine Urobilinogen Ur Leukocyte Esterase Urine RBC Urine WBC Ur Epithelial Cells Amorphous Urates Urine Casts Hyaline Casts Waxy Casts Urine Mucus U Random Total Protein Ur Random Sodium Ur Random Potassium Ur Random Chloride Urine Creatinine Protein/Creatinin Ratio Sinus rhythm with nonspecific ST-T Imaging - Results Chest X-ray: Report Reviewed (Unremarkable) Ultrasound: Report Reviewed (Left lower extremity popliteal DVT) EKG: Report Reviewed Problem List - Problems (1) J CARLOS (acute kidney injury) Code(s): N17.9 - ACUTE KIDNEY FAILURE, UNSPECIFIED (2) Diabetes Code(s): E11.9 - TYPE 2 DIABETES MELLITUS WITHOUT COMPLICATIONS Qualifiers: Diabetes mellitus type: type 2 (3) Hypotension Code(s): I95.9 - HYPOTENSION, UNSPECIFIED Qualifiers: Hypotension type: unspecified hypotension type Qualified Code(s): I95.9 - Hypotension, unspecified (4) Lactic acid acidosis Code(s): E87.2 - ACIDOSIS (5) Weakness Code(s): R53.1 - WEAKNESS (6) Pulmonary embolism Code(s): I26.99 - OTHER PULMONARY EMBOLISM WITHOUT ACUTE COR PULMONALE (7) DVT (deep venous thrombosis) Code(s): I82.409 - ACUTE EMBOLISM AND THOMBOS UNSP DEEP VN UNSP LOWER EXTREMITY (8) Dyspnea Code(s): R06.00 - DYSPNEA, UNSPECIFIED (9) Prostate CA Code(s): C61 - MALIGNANT NEOPLASM OF PROSTATE Assessment/Plan 1. Suspect acute pulmonary thromboembolism with RV strain and hypoxia 2. DVT - left popliteal 3. History of metastatic prostate CA 4. 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 J CARLOS with elevation of creatinine and hyperkalemia 6. Anemia 7. Mitral valve regurgitation PLAN: 1. Continue Heparin drip and ICU management 2. Await IR evaluation and input regarding IR guided thrombectomy and possible TPA 3. Echocardiography can be repeated after above intervention and to follow degree of TR and MR 4. Follow renal function and electrolytes 5. Continue supportive care as per intensive care Guarded. Further plans are to follow Vin Guillen MD
[2017-06-04] MEDS ORDERED: ACETYLCYSTEINE 20% 200MG/ML 4 ML VIAL *FOR ORAL / INH USE ONLY PO ONE (13:00)
--- NOTE | 2017-06-04 13:23 | CONSULT ---
Consult Consult Specialty:: Nephrology Reason for Consultation:: J CARLOS - History of Present Illness Chief Complaint: shortness of breath History of Present Illness: Pt is an 87 year old male with pmhx of metastatic prostate cancer, GERD, HTN, and DM who presents to the ER complaining of shortness of breath. He had recently travelled to [place] and returned home on the , from which time he had shortness of breath and weakness. He was found to have a DVT in his leg and transferred to the ICU. He is awake and alert. He still has shortness of breath. He was found to have elevated creatinine yesterday which started to improved to with hydration. I was called to evaluate him for J CARLOS. He denies history of CKD. He denies nsaid use. He denies dysuria or hematuria. He is awake and alert today. I discussed risks of IV contrast with him and he understands. - History Source History Provided By: Patient, Medical Record - Past Medical History Cardio/Vascular: Yes: HTN Pulmonary: Yes: Pulmonary Embolus (25 years ago) Gastrointestinal: Yes: GERD Renal/: Yes: Cancer Heme/Onc: Yes: Other (prostate cancer) - Alcohol/Substance Use Hx Alcohol Use: Yes (COCKTAIL X1 DAILY) - Smoking History Smoking history: Former smoker Have you smoked in the past 12 months: No Aproximately how many cigarettes per day: 0 If you are a former smoker, when did you quit?: 1984 - Social History Usual Living Arrangement: With Spouse ADL: Independent History of Recent Travel: No Home Medications - Allergies Allergies/Adverse Reactions: Allergies Allergy/AdvReac Type Severity Reaction Status Date / Time No Known Drug Allergies Allergy Verified 06/03/17 08:54 - Home Medications Home Medications: Ambulatory Orders Morphine (Avinza) [Avinza] 30 mg PO BID 06/03/17 Pregabalin [Lyrica] 100 mg PO TID 06/03/17 Venlafaxine HCl ER [Effexor Xr -] 75 mg PO DAILY 06/03/17 Family Disease History - Family Disease History Family History: Denies Review of Systems - Review of Systems Constitutional: reports: Malaise Eyes: reports: No Symptoms HENT: reports: No Symptoms Neck: reports: No Symptoms Cardiovascular: reports: Shortness of Breath Respiratory: reports: Cough, SOB, SOB on Exertion Gastrointestinal: reports: No Symptoms Genitourinary: reports: No Symptoms Musculoskeletal: reports: Muscle Weakness Integumentary: reports: No Symptoms Neurological: reports: No Symptoms Endocrine: reports: No Symptoms Hematology/Lymphatic: reports: No Symptoms Psychiatric: reports: No Symptoms Physical Exam Vital Signs: Vital Signs Temperature 98.3 F 06/04/17 10:00 Pulse Rate 87 06/04/17 10:00 Respiratory Rate 25 H 06/04/17 10:00 Blood Pressure 113/40 06/04/17 10:00 O2 Sat by Pulse Oximetry (%) 92 L 06/04/17 09:00 Constitutional: Yes: Calm Eyes: Yes: Conjunctiva Clear HENT: Yes: Atraumatic Cardiovascular: Yes: S1, S2 Respiratory: Yes: On Venti-Mask, Rhonchi Gastrointestinal: Yes: Soft Renal/: Yes: Campbell Present Musculoskeletal: Yes: WNL Extremities: Yes: WNL Edema: No Neurological: Yes: Oriented Psychiatric: Yes: Oriented Labs: CBC, BMP 06/04/17 05:40 06/04/17 05:40 Laboratory Tests 11/09/16 11/11/16 11/12/16 10:20 05:30 14:49 WBC Hgb Plt Count Sodium Potassium Chloride Carbon Dioxide BUN Creatinine 0.8 0.7 0.9 Troponin I B-Natriuretic Peptide Urine Protein Urine Blood Ur Random Sodium 01/29/17 03/06/17 06/03/17 12:56 16:04 09:47 WBC Hgb Plt Count Sodium Potassium Chloride Carbon Dioxide BUN Creatinine 1.0 1.1 1.9 H D Troponin I B-Natriuretic Peptide Urine Protein Urine Blood Ur Random Sodium 06/03/17 06/03/17 06/04/17 12:54 18:15 05:40 WBC 9.0 D Hgb 9.4 L D Plt Count 163 D Sodium Potassium Chloride Carbon Dioxide BUN Creatinine Troponin I B-Natriuretic Peptide Urine Protein 3+ H D Urine Blood 2+ H Ur Random Sodium 06/04/17 06/04/17 06/04/17 05:40 05:40 05:40 WBC Hgb Plt Count Sodium 137 Potassium 4.7 Chloride 108 H Carbon Dioxide 19 L D BUN 26 H D Creatinine 1.4 H D Troponin I 1.35 H* B-Natriuretic Peptide 96914.61 H Urine Protein Urine Blood Ur Random Sodium Imaging - Results Chest X-ray: Report Reviewed Ultrasound: Report Reviewed (left leg dvt neg hydro of kidneys) Problem List - Problems (1) J CARLOS (acute kidney injury) Code(s): N17.9 - ACUTE KIDNEY FAILURE, UNSPECIFIED (2) Diabetes Code(s): E11.9 - TYPE 2 DIABETES MELLITUS WITHOUT COMPLICATIONS Qualifiers: Diabetes mellitus type: type 2 (3) Hypotension Code(s): I95.9 - HYPOTENSION, UNSPECIFIED Qualifiers: Hypotension type: unspecified hypotension type Qualified Code(s): I95.9 - Hypotension, unspecified (4) Lactic acid acidosis Code(s): E87.2 - ACIDOSIS (5) Prostate cancer metastatic to bone Code(s): C61 - MALIGNANT NEOPLASM OF PROSTATE C79.51 - SECONDARY MALIGNANT NEOPLASM OF BONE (6) Suspected pulmonary embolism Code(s): I26.99 - OTHER PULMONARY EMBOLISM WITHOUT ACUTE COR PULMONALE (7) Weakness Code(s): R53.1 - WEAKNESS Assessment/Plan Current Medications Generic Name Dose Route Start Last Admin Trade Name Freq PRN Reason Stop Dose Admin Acetylcysteine 1,200 mg 06/04/17 23:59 Mucomyst 20 Oral / Inh Use Only* PO 06/05/17 12:00 BID MANNY Dipyridamole/Aspirin 1 combo 06/03/17 22:00 06/04/17 12:11 Aggrenox - PO 1 combo BID MANNY Administration Heparin Sodium (Porcine) 1,000 unit 06/03/17 16:23 06/04/17 09:07 Heparin - IVPUSH 1,000 unit PRN PRN Administration Heparin Heparin Sodium (Porcine) 5,000 unit 06/03/17 16:23 Heparin - IVPUSH PRN PRN Heparin Heparin Sodium (Porcine) 25, 500 mls @ 20 mls/hr 06/03/17 10:30 06/04/17 11:59 000 unit/ Sodium Chloride IV Not Given TITR [facility] Protocol 1,000 UNIT/HR Famotidine/Sodium Chloride 50 mls @ 100 mls/hr 06/03/17 22:00 06/04/17 09:27 Pepcid 20 Mg Premixed Ivpb - IVPB 100 mls/hr BID MANNY Administration Sodium Chloride 1,000 mls @ 100 mls/hr 06/04/17 14:00 Normal Saline - IV ASDIR [facility] Alteplase, Recombinant 15 mg/ 150 mls @ 5 mls/hr 06/04/17 14:45 Sodium Chloride IVPB 06/05/17 20:44 ONCE ONE 0.5 MG/HR Alteplase, Recombinant 15 mg/ 150 mls @ 5 mls/hr 06/04/17 14:45 Sodium Chloride IVPB 06/05/17 20:44 ONCE ONE 0.5 MG/HR Insulin Aspart 1 vial 06/03/17 16:30 06/04/17 06:22 Novolog Vial Sliding Scale - SQ 2 units ACHS MANNY Administration Protocol Morphine Sulfate 30 mg 06/03/17 22:00 06/04/17 09:27 Ms Contin - PO 30 mg BID MANNY Administration Pregabalin 100 mg 06/03/17 14:00 06/04/17 06:21 Lyrica - PO 100 mg TID MANNY Administration Venlafaxine HCl 75 mg 06/04/17 10:00 06/04/17 12:11 Effexor Xr - PO 75 mg DAILY MANNY Administration Impression 1. J CARLOS 2. DVT 3. likely PE 4. elevated troponin 5. prostate cancer with mets 6. hypoxia 7. lactic acidosis 8. anemia Plan - renal function improved with hydration - cont with fluids - pt understands the risks of j carlos and jose from contrast - follow up imaging - will also give muscomyst before contrast - monitor renal function closely - renal ultrasound reviewed - urine sodium is low - monitor volume status closely - repeat cxr in am - discussed with pulmonary - discussed with ICU team - keep pt in ICU - follow up cultures - monitor hg and will need an anemia workup - monitor pulse ox - trend lactic acid Dr Hughes
[2017-06-04] MEDS ORDERED: SODIUM CHLORIDE IVPB ONE (14:45)
[2017-06-04] MEDS ORDERED: ALTEPLASE IVPB ONE (14:45)
[2017-06-04] MEDS ORDERED: HYDROmorphone HCL CARPU-JECT 1 MG/1 ML DISP.SYRIN IVPB PRN (16:35)
--- NOTE | 2017-06-04 16:41 | EKG ---
Test Reason : Blood Pressure : / mmHG Vent. Rate : 086 BPM Atrial Rate : 086 BPM P-R Int : 288 ms QRS Dur : 102 ms QT Int : 424 ms P-R-T Axes : 019 -45 088 degrees QTc Int : 507 ms SINUS RHYTHM WITH 1ST DEGREE A-V BLOCK LEFT ANTERIOR FASCICULAR BLOCK ST DEPRESSION IN LEADS V5-V6 PROLONGED QT ABNORMAL ECG WHEN COMPARED WITH ECG OF 03-JUN-2017 20:31, ST DEPREESIONS IN V5-V6 QT HAS LENGTHENED CLI Confirmed by JOS FU MD ([id number]) on 06/04/2017 4:40:50 PM Referred By: GUALBERTO MADRIGAL Confirmed By:JOS FU MD
[2017-06-04] MEDS: SODIUM CHLORIDE 1,000 ML IV SCH (17:18)
--- NOTE | 2017-06-04 18:47 | EKG ---
Test Reason : Blood Pressure : / mmHG Vent. Rate : 082 BPM Atrial Rate : 082 BPM P-R Int : 324 ms QRS Dur : 100 ms QT Int : 368 ms P-R-T Axes : 079 -50 040 degrees QTc Int : 429 ms POOR DATA QUALITY, INTERPRETATION MAY BE ADVERSELY AFFECTED SINUS RHYTHM WITH 1ST DEGREE A-V BLOCK LEFT ANTERIOR FASCICULAR BLOCK NONSPECIFIC T WAVE ABNORMALITY ABNORMAL ECG WHEN COMPARED WITH ECG OF 03-JUN-2017 09:25, NONSPECIFIC T WAVE ABNORMALITY, WORSE IN LATERAL LEADS QT HAS SHORTENED REPEAT INDICATED Confirmed by JOS FU MD ([id number] on 06/04/2017 6:47:19 PM Referred By: Confirmed By:JOS FU MD
--- NOTE | 2017-06-04 19:46 | EKG ---
Test Reason : Blood Pressure : / mmHG Vent. Rate : 082 BPM Atrial Rate : 082 BPM P-R Int : 328 ms QRS Dur : 108 ms QT Int : 428 ms P-R-T Axes : 047 -49 054 degrees QTc Int : 500 ms SINUS RHYTHM WITH MARKED 1ST DEGREE AV BLOCK LEFT ANTERIOR FASCICULAR BLOCK BORDERLINE CRETERIA FOR NONSPECIFIC IVCD PROLONGED QT ABNORMAL ECG WHEN COMPARED WITH ECG OF 05-NOV-2016 15:19, NONSPECIFIC ST AND T WAVE ABNORMALITY IN COMPARABLE LEADS QT HAS LENGTHENED REPEAT EKG IF CLINICALLY INDICATED Confirmed by JOS FU MD ([id number] on 06/04/2017 7:45:55 PM Referred By: MIGUEL Confirmed By:JOS FU MD
[2017-06-04] MEDS: ACETYLCYSTEINE 20% 200MG/ML 4 ML VIAL *FOR ORAL / INH USE ONLY PO SCH (23:30)
[2017-06-05] MEDS: SODIUM CHLORIDE 1,000 ML IV SCH ×3 (06:04→14:00)
[2017-06-05] MEDS: PREGABALIN 50 MG CAPSULE PO SCH ×3 (06:04→21:22)
[2017-06-05] MEDS: INSULIN SLIDING SCALE (NOVOLOG) 1 VIAL SQ SCH ×4 (06:30→21:21)
[2017-06-05 06:38] LABS: BASOPHIL 0.3 % (0-2.0); EOSINOPHIL 0.6 % (0-4.5); MCH 31.9 pg (25.7-33.7); MEAN CELL VOLUME 96.7 fl (80-96); MEAN PLT VOLUME 8.9 fl (7.5-11.1); NEUTROPHILS 79.9 % (42.8-82.8); PLATELET COUNT 158 K/MM3 (134-434); WHITE BLOOD COUNT 7.6 K/mm3 (4.0-10.0)
[2017-06-05 06:50] LABS: ALBUMIN 2.2 g/dl (3.4-5.0); ANION GAP 10 (8-16); CO2 19 mmol/L (21-32); CREATININE 1.2 mg/dL (0.7-1.3); GLUCOSE,RANDOM 135 mg/dL (74-106); MAGNESIUM 2.1 mg/dL (1.8-2.4); PHOSPHOROUS 2.2 mg/dL (2.5-4.9); SGOT/AST 255 U/L (15-37); SGPT/ALT 143 U/L (12-78)
[2017-06-05 06:52] LABS: ALK PHOS 193 U/L (45-117); BILIRUBIN,TOTAL 0.8 mg/dL (0.2-1.0); TOT PROT 5.6 g/dl (6.4-8.2)
[2017-06-05 07:10] LABS: CALCIUM 6.7 mg/dL (8.5-10.1)
--- NOTE | 2017-06-05 08:07 | PN ---
Physical Exam: SUBJECTIVE: Patient seen and examined by me this AM - Mild episode of hypotension overnight. Satting well in high 90s on venti mask. - No other major overnight events. Endorses persistent pain in lower back due to metastatic dz. Currently on morphine gtt. - Breathing improving. Resolving dyspnea, SOB. - PTT subtherapeutic in AM 24.9. Heparin infusion protocol initiated - Anemia with downtrending H/H. HgB of 8.6 - Hypo-phos repleted in AM. - New abdominal pain in PM. Will go for Abdominal U/S in setting of elevated LFTs (AST, ALT, AlkPhos) - Going for removal of R IJ Cordis for tPa infusion today. OBJECTIVE: Intake & Output 06/02/17 06/03/17 06/04/17 06/05/17 23:59 23:59 23:59 23:59 Intake Total 1520 1850 1610 Output Total 420 1425 400 Balance 1402 484 5651 Weight 81 kg 83.325 kg 84.731 kg Vital Signs Period Temp Pulse Resp BP Sys/Kim Pulse Ox Last 24 Hr 97.2 F-99.2 F 63-88 14-25 86-131/40-74 92-100 GENERAL: The patient is awake, alert, and fully oriented, in NAD HEAD: Normal with no signs of trauma. EYES: PERRL, extraocular movements intact, sclera anicteric, conjunctiva clear. No ptosis. ENT: Oropharynx clear without exudates, moist mucous membranes. NECK: Trachea midline, full range of motion, supple. IJ cordis in place, with no erythema or drainage. LUNGS: Breath sounds equal, clear to auscultation bilaterally, no wheezes, no crackles, labored breathing w/ minimal exertion HEART: Regular rate and rhythm, S1, S2 without murmur, rub or gallop. ABDOMEN: Soft, nontender, nondistended, normoactive bowel sounds, no guarding, no rebound, no hepatosplenomegaly, no masses. EXTREMITIES: 2+ pulses, warm, well-perfused, no edema. Negative zack's sign. NEUROLOGICAL: Cranial nerves II through XII grossly intact. Normal speech, with occasional aphasia. SKIN: Warm, dry, normal turgor. Ecchymoses on BL UE. Laboratory Results - last 24 hr CBC, BMP 06/05/17 05:20 06/05/17 05:20 06/04/17 06/04/17 06/04/17 00:05 05:40 05:40 WBC RBC Hgb Hct MCV MCH MCHC RDW Plt Count MPV Neutrophils % Lymphocytes % Monocytes % Eosinophils % Basophils % PTT (Actin FS) Sodium 137 Potassium 4.7 Chloride 108 H Carbon Dioxide 19 L D Anion Gap 10 BUN 26 H D Creatinine 1.4 H D Creat Clearance w eGFR 48.16 POC Glucometer Random Glucose 147 H Hemoglobin A1c % 6.3 H D Calcium 7.2 L Phosphorus 2.5 D Magnesium 2.1 Total Bilirubin 0.7 AST 143 H ALT 48 Alkaline Phosphatase 163 H Creatine Kinase 1654 H Creatine Kinase Index 0.8 CK-MB (CK-2) 13.891 H Troponin I 1.70 H* D Total Protein 5.7 L Albumin 2.4 L TSH 0.48 06/04/17 06/04/17 06/04/17 05:40 16:45 17:07 WBC RBC Hgb Hct MCV MCH MCHC RDW Plt Count MPV Neutrophils % Lymphocytes % Monocytes % Eosinophils % Basophils % PTT (Actin FS) 67.0 H D Sodium Potassium Chloride Carbon Dioxide Anion Gap BUN Creatinine Creat Clearance w eGFR POC Glucometer [phone] Random Glucose Hemoglobin A1c % Calcium Phosphorus Magnesium Total Bilirubin AST ALT Alkaline Phosphatase Creatine Kinase 1798 H Creatine Kinase Index 0.4 CK-MB (CK-2) 8.453 H Troponin I 1.35 H* Total Protein Albumin TSH 06/04/17 06/05/17 06/05/17 21:28 05:20 05:20 WBC 7.6 RBC 2.68 L Hgb 8.6 L Hct 26.0 L MCV 96.7 H MCH 31.9 MCHC 33.0 RDW 17.0 H Plt Count 158 MPV 8.9 Neutrophils % 79.9 Lymphocytes % 9.2 Monocytes % 10.0 Eosinophils % 0.6 Basophils % 0.3 PTT (Actin FS) Sodium 139 Potassium 4.4 Chloride 110 H Carbon Dioxide 19 L Anion Gap 10 BUN 24 H Creatinine 1.2 Creat Clearance w eGFR 57.54 POC Glucometer 150.84019 Random Glucose 135 H Hemoglobin A1c % Calcium 6.7 L* Phosphorus 2.2 L Magnesium 2.1 Total Bilirubin 0.8 AST 255 H D ALT 143 H D Alkaline Phosphatase 193 H Creatine Kinase Creatine Kinase Index CK-MB (CK-2) Troponin I Total Protein 5.6 L Albumin 2.2 L TSH 06/05/17 06/05/17 05:20 05:56 WBC RBC Hgb Hct MCV MCH MCHC RDW Plt Count MPV Neutrophils % Lymphocytes % Monocytes % Eosinophils % Basophils % PTT (Actin FS) 24.9 L D Sodium Potassium Chloride Carbon Dioxide Anion Gap BUN Creatinine Creat Clearance w eGFR POC Glucometer 169.10256 Random Glucose Hemoglobin A1c % Calcium Phosphorus Magnesium Total Bilirubin AST ALT Alkaline Phosphatase Creatine Kinase Creatine Kinase Index CK-MB (CK-2) Troponin I Total Protein Albumin TSH Active Medications Generic Name Dose Route Start Last Admin Trade Name Freq PRN Reason Stop Dose Admin Acetylcysteine 1,200 mg 06/04/17 23:59 06/04/17 23:30 Mucomyst 20 Oral / Inh Use Only* PO 06/05/17 12:00 1,200 mg BID MANNY Administration Dipyridamole/Aspirin 1 combo 06/03/17 22:00 06/04/17 21:31 Aggrenox - PO 1 combo BID MANNY Administration Heparin Sodium (Porcine) 1,000 unit 06/03/17 16:23 06/04/17 09:07 Heparin - IVPUSH 1,000 unit PRN PRN Administration Heparin Heparin Sodium (Porcine) 5,000 unit 06/03/17 16:23 Heparin - IVPUSH PRN PRN Heparin Heparin Sodium (Porcine) 25, 500 mls @ 20 mls/hr 06/03/17 10:30 06/04/17 19:31 000 unit/ Sodium Chloride IV 500 unit/hr TITR MANNY Titration Protocol 1,000 UNIT/HR Famotidine/Sodium Chloride 50 mls @ 100 mls/hr 06/03/17 22:00 06/04/17 21:30 Pepcid 20 Mg Premixed Ivpb - IVPB 100 mls/hr BID MANNY Administration Sodium Chloride 1,000 mls @ 100 mls/hr 06/04/17 14:00 06/05/17 06:04 Normal Saline - IV 100 mls/hr ASDIR MANNY Administration Alteplase, Recombinant 15 mg/ 150 mls @ 5 mls/hr 06/04/17 14:45 06/04/17 16:15 Sodium Chloride IVPB 06/05/17 20:44 5 mls/hr ONCE ONE Administration 0.5 MG/HR Alteplase, Recombinant 15 mg/ 150 mls @ 5 mls/hr 06/04/17 14:45 06/04/17 16:15 Sodium Chloride IVPB 06/05/17 20:44 5 mls/hr ONCE ONE Administration 0.5 MG/HR Insulin Aspart 1 vial 06/03/17 16:30 06/05/17 06:30 Novolog Vial Sliding Scale - SQ 2 units ACHS MANNY Administration Protocol Morphine Sulfate 30 mg 06/03/17 22:00 06/04/17 21:31 Ms Contin - PO 30 mg BID MANNY Administration Pregabalin 100 mg 06/03/17 14:00 06/05/17 06:04 Lyrica - PO 100 mg TID MANNY Administration Venlafaxine HCl 75 mg 06/04/17 10:00 06/04/17 12:11 Effexor Xr - PO 75 mg DAILY MANNY Administration US Renal and urinary bladder ultrasound 06/03/17: The right kidney measures 10.4 cm in sagittal with a simple cyst in its lower pole measuring 1.1 cm Left kidney measures 9.5 cm in sagittal length with a simple cyst in its lower pole measuring 1.1 cm. There is no evidence of hydronephrosis or renal stones, bilaterally Visualized portion of the liver appears unremarkable. An unclamped Gimenez catheter is present in an empty urinary bladder and hence it could not be evaluated. Prostate gland was not visualized. IMPRESSION: Small simple cyst in the right and left kidney. Both kidneys appear unremarkable. Empty urinary bladder. Gimenez catheter was not clamped. Reported By: Tray Mead MD 06/03/17 1512 Bilateral leg Doppler venous ultrasound 06/03/17: Grayscale, pulsed Doppler and color Doppler interrogation of both lower extremities deep venous system was performed. There is no evidence of deep venous thromboses in the right lower extremity. In the left lower extremity, there is incomplete compression of the popliteal vein consistent with thrombosis. The left common femoral vein, superficial femoral and popliteal vein are patent without evidence of thrombosis. Visualized portion of the greater saphenous and deep femoral vein are patent without evidence of thrombosis. No Cherry's cyst is identified in the popliteal fossa, bilaterally. IMPRESSION: Findings consistent with deep venous thromboses in the left lower extremity involving the popliteal vein. Reported By: Tray Mead MD 06/03/17 1508 EKst degree AV block. LAD. Left anterior fasicular block. No evidence of STEMI or RV strain pattern. CXR (06/03) - No evidence of PNA, pneumothorax or pleural effusion. Mild cardiomegaly. CTA (06/04) - Per my read, bilateral saddle embolus in R and L PA. Flattening of interventricular septum and RV enlargement, indicative of RV strain. ASSESSMENT/PLAN: 87 yo man with pmh of metastatic prostate Ca and HTN, now with J CARLOS, L popliteal DVT and CTA-confirmed saddle embolus in setting of two days of acute SOB following plane flight back from [place] on 05/30. Now post-op tPa infusion w/ plan for removed of R IJ cordis today w/ placement of IVC filter in IR. Patient with new onset abdominal pain in setting of elevated liver chemistries, suspicion for shock liver. Patient made NPO and will go for abdominal U/S in PM for further work-up. #Neuro Monitor MS MS contin 30mg BID for hip pain/metastatic dz Lyrica 100mg TID for neuropathy #Cardiac Post-thrombectomy Echo in PM Trend BNP Cardiology recommendations appreciated #Pulm NC 2L O2 tx. Titrate to >94% O2 sat CXR tomorrow #Heme Transition to LMWH from heparin gtt Will require lifelong AC Continue home Aggrenox #Renal Hypo-Phos repleted in AM. IVF NS 100ml/hr Trend BUN, Cr Strict I&Os (gimenez placed) #GI Elevated AST, ALT, Alk Phos. Suspicion for shock liver. Abdominal U/S in PM. Currently NPO. Will go later in the PM. Trend LFTs Famotidine 20mg IVPB BID for GERD #Endo Insulin ss ACHS Hold home medications f/u Hemoglobin A1c #Psych Venlafaxine 75 mg PO #FEN Fluids: NS 100ml/hr Electrolytes: Repeat BMP in PM. Routine lytes Nutrition: NPO until after Abdominal U/S Dispo: Will require ICU observation post-thrombectomy. Inocencio Cortes, PGY1 Plan discussed with Attending, Dr. Shanks Visit type - Emergency Visit Emergency Visit: No - New Patient This patient is new to me today: No - Critical Care Critical Care patient: Yes Total Critical Care Time (in minutes): 45 Critical Care Statement: The care of this patient involved high complexity decision making to prevent further life threatening deterioration of the patient 's condition and/or to evaluate & treat vital organ system(s) failure or risk of failure.
--- NOTE | 2017-06-05 08:14 | PN ---
Physical Exam: SUBJECTIVE: Patient seen and examined by me this AM - No major overnight events. Pt complaining about BiPap machine, stating it is too loud and difficult to sleep with. - WBC still elevated from 14.0 -> 14.7 - Afebrile. SOB and dyspnea improving. Mild dry cough w/ no interval change. - Blood cultures pending OBJECTIVE: Intake & Output 06/02/17 06/03/17 06/04/17 06/05/17 23:59 23:59 23:59 23:59 Intake Total 1520 1850 1610 Output Total 420 1425 400 Balance 7134 704 8687 Weight 81 kg 83.325 kg 84.731 kg Vital Signs Period Temp Pulse Resp BP Sys/Kim Pulse Ox Last 24 Hr 97.2 F-99.2 F 63-88 14-25 86-131/40-74 92-100 GENERAL: The patient is awake, alert, and fully oriented. Elderly woman lying comfortably in bed on NC. HEAD: Normal with no signs of trauma. EYES: PERRL, extraocular movements intact, sclera anicteric, conjunctiva clear. No ptosis. ENT: oropharynx clear without exudates, moist mucous membranes. NECK: Trachea midline, full range of motion, supple. LUNGS: Breath sounds diminished with scattered rhonchi, no wheezes, no crackles HEART: Regular rate and rhythm, S1, S2 without murmur, rub or gallop. ABDOMEN: Soft, nontender, nondistended, normoactive bowel sounds, no guarding, no rebound EXTREMITIES: 2+ pulses, warm, well-perfused. 2+ LE BL edema NEUROLOGICAL: Cranial nerves II through XII grossly intact. Normal speech, gait not observed. PSYCH: Normal mood, normal affect. SKIN: Warm, dry, normal turgor. Laboratory Results - last 24 hr CBC, BMP 06/05/17 05:20 06/05/17 05:20 06/04/17 06/04/17 06/04/17 00:05 05:40 05:40 WBC RBC Hgb Hct MCV MCH MCHC RDW Plt Count MPV Neutrophils % Lymphocytes % Monocytes % Eosinophils % Basophils % PTT (Actin FS) Sodium Potassium Chloride Carbon Dioxide Anion Gap BUN Creatinine Creat Clearance w eGFR POC Glucometer Random Glucose Hemoglobin A1c % 6.3 H D Calcium Phosphorus Magnesium Total Bilirubin AST ALT Alkaline Phosphatase Creatine Kinase 1654 H 1798 H Creatine Kinase Index 0.8 0.4 CK-MB (CK-2) 13.891 H 8.453 H Troponin I 1.70 H* D 1.35 H* Total Protein Albumin 06/04/17 06/04/17 06/04/17 16:45 17:07 21:28 WBC RBC Hgb Hct MCV MCH MCHC RDW Plt Count MPV Neutrophils % Lymphocytes % Monocytes % Eosinophils % Basophils % PTT (Actin FS) 67.0 H D Sodium Potassium Chloride Carbon Dioxide Anion Gap BUN Creatinine Creat Clearance w eGFR POC Glucometer 225.18608 150.90167 Random Glucose Hemoglobin A1c % Calcium Phosphorus Magnesium Total Bilirubin AST ALT Alkaline Phosphatase Creatine Kinase Creatine Kinase Index CK-MB (CK-2) Troponin I Total Protein Albumin 06/05/17 06/05/17 06/05/17 05:20 05:20 05:20 WBC 7.6 RBC 2.68 L Hgb 8.6 L Hct 26.0 L MCV 96.7 H MCH 31.9 MCHC 33.0 RDW 17.0 H Plt Count 158 MPV 8.9 Neutrophils % 79.9 Lymphocytes % 9.2 Monocytes % 10.0 Eosinophils % 0.6 Basophils % 0.3 PTT (Actin FS) 24.9 L D Sodium 139 Potassium 4.4 Chloride 110 H Carbon Dioxide 19 L Anion Gap 10 BUN 24 H Creatinine 1.2 Creat Clearance w eGFR 57.54 POC Glucometer Random Glucose 135 H Hemoglobin A1c % Calcium 6.7 L* Phosphorus 2.2 L Magnesium 2.1 Total Bilirubin 0.8 AST 255 H D ALT 143 H D Alkaline Phosphatase 193 H Creatine Kinase Creatine Kinase Index CK-MB (CK-2) Troponin I Total Protein 5.6 L Albumin 2.2 L 06/05/17 05:56 WBC RBC Hgb Hct MCV MCH MCHC RDW Plt Count MPV Neutrophils % Lymphocytes % Monocytes % Eosinophils % Basophils % PTT (Actin FS) Sodium Potassium Chloride Carbon Dioxide Anion Gap BUN Creatinine Creat Clearance w eGFR POC Glucometer 169.77149 Random Glucose Hemoglobin A1c % Calcium Phosphorus Magnesium Total Bilirubin AST ALT Alkaline Phosphatase Creatine Kinase Creatine Kinase Index CK-MB (CK-2) Troponin I Total Protein Albumin Active Medications Generic Name Dose Route Start Last Admin Trade Name Freq PRN Reason Stop Dose Admin Acetylcysteine 1,200 mg 06/04/17 23:59 06/04/17 23:30 Mucomyst 20 Oral / Inh Use Only* PO 06/05/17 12:00 1,200 mg BID HARI Administration Dipyridamole/Aspirin 1 combo 06/03/17 22:00 06/04/17 21:31 Aggrenox - PO 1 combo BID HARI Administration Heparin Sodium (Porcine) 1,000 unit 06/03/17 16:23 06/04/17 09:07 Heparin - IVPUSH 1,000 unit PRN PRN Administration Heparin Heparin Sodium (Porcine) 5,000 unit 06/03/17 16:23 Heparin - IVPUSH PRN PRN Heparin Heparin Sodium (Porcine) 25, 500 mls @ 20 mls/hr 06/03/17 10:30 06/04/17 19:31 000 unit/ Sodium Chloride IV 500 unit/hr TITR HARI Titration Protocol 1,000 UNIT/HR Famotidine/Sodium Chloride 50 mls @ 100 mls/hr 06/03/17 22:00 06/04/17 21:30 Pepcid 20 Mg Premixed Ivpb - IVPB 100 mls/hr BID HARI Administration Sodium Chloride 1,000 mls @ 100 mls/hr 06/04/17 14:00 06/05/17 06:04 Normal Saline - IV 100 mls/hr ASDIR HARI Administration Alteplase, Recombinant 15 mg/ 150 mls @ 5 mls/hr 06/04/17 14:45 06/04/17 16:15 Sodium Chloride IVPB 06/05/17 20:44 5 mls/hr ONCE ONE Administration 0.5 MG/HR Alteplase, Recombinant 15 mg/ 150 mls @ 5 mls/hr 06/04/17 14:45 06/04/17 16:15 Sodium Chloride IVPB 06/05/17 20:44 5 mls/hr ONCE ONE Administration 0.5 MG/HR Insulin Aspart 1 vial 06/03/17 16:30 06/05/17 06:30 Novolog Vial Sliding Scale - SQ 2 units ACHS HARI Administration Protocol Morphine Sulfate 30 mg 06/03/17 22:00 06/04/17 21:31 Ms Contin - PO 30 mg BID AHRI Administration Pregabalin 100 mg 06/03/17 14:00 06/05/17 06:04 Lyrica - PO 100 mg TID HARI Administration Venlafaxine HCl 75 mg 06/04/17 10:00 06/04/17 12:11 Effexor Xr - PO 75 mg DAILY HARI Administration EKG (06/03) - SVT with rate in 130s. F/u EKG with conversion to NSR. CXR (06/05) - No major interval change. Prominent emphysema. Possible consolidation in LLL. Increased aeration in bilateral lung bases. 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 Pt much improved on Bipap overnight with medrol and nebs, with f/u ABG of 7.38/58.5/144/34 (initial ABG 7.33/72.9/73.9/37.6). CXR notable for bibasilar opacities with possible focal consolidation in LLL, possibly suggestive of PNA, given elevated WBC and suspected COPD exacerbation. Overnight events notable for episode of SVT to 130s with conversion to NSR after receiving 6mg adenosine. Patient currently being treated for acute on chronic COPD exacerbation and hypercapneic respiratory failure with significant improvement in clinical status, with no further episodes of SVT. Will remain overnight for monitoring with transfer to med-surg floor tomorrow. Cardiology and pulmonology following. 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 Titrate to O2 of 88-95% to avoid further V/ Q mismatch. Duoneb nebulizer q6h hari Albuterol q4h prn continue IV steroid solu 40mg q6h. Plan to taper in AM Started on Spiriva Repeat CXR tomorrow AM Continue Montelukast #ID Ceftriaxone/azithromycin for CAP coverage f/u blood cultures Trend WBC, fever curve #Heme Continue Aspirin 81mg Start on AC per cardiology SubQ hep for DVT PPX #Renal Daily Lytes Lasix 40 mg #Endo Insulin SS Continue levemir Continue levothyroxine for hypothyroidism F/u blood glucose #GI Protonix 40mg for GI PPX #FEN Fluids: Hold fluids Electrolytes: Daily lytes Nutrition: Diabetic diet #Dispo: Monitor respiratory status in ICU overnight. Plan for transfer to med- surg tomorrow AM if clinically improved. Inocencio Cortes, PGY1 Plan discussed with attending, Dr. Shanks. Dispo: We will continue to follow the patient. Thank you for this consultative opportunity.
[2017-06-05] MEDS ORDERED: PT OWN MED DRAWER 7, Y5N ONE ×4 (09:03→21:54)
[2017-06-05] MEDS: FAMOTIDINE 20 MG/50 ML IVPB 50 ML IVPB SCH ×2 (09:16→21:30)
[2017-06-05] MEDS: morphine SO4 SUSTAINED ACTING 30 MG TABLET.SA PO SCH ×2 (09:18→21:22)
[2017-06-05] MEDS: HEPARIN NA (PORCINE) 5,000 UNITS/ML 1ML VIAL IVPUSH PRN (10:14)
[2017-06-05] MEDS ORDERED: TRIPLE LUMEN FLUSH 4 ML ML IVPUSH PRN ×2 (10:15→17:18)
[2017-06-05] MEDS: HEPARIN - 25,000 UNIT in SODIUM CHLORIDE 495 ML IV SCH (10:15)
--- NOTE | 2017-06-05 10:58 | PN ---
Progress Note (short form) - Note Progress Note: Subjective: The patient was seen and examined at the bedside, he has no complaints at this time. Tpa to two lumens from right neck TLC PTT subtherapeutic this AM. Discussed with Dr. Carmichael, he has instructed to increased TPA in both lumens from 0.5mg/hr to 1mg/hr Order entered and RN notified Patient will go for IVC filter today Current Medications Generic Name Dose Route Start Last Admin Trade Name Freq PRN Reason Stop Dose Admin Acetylcysteine 1,200 mg 06/04/17 23:59 06/04/17 23:30 Mucomyst 20 Oral / Inh Use Only* PO 06/05/17 12:00 1,200 mg BID MANNY Administration Dipyridamole/Aspirin 1 combo 06/03/17 22:00 06/04/17 21:31 Aggrenox - PO 1 combo BID MANNY Administration Heparin Sodium (Porcine) 1,000 unit 06/03/17 16:23 06/04/17 09:07 Heparin - IVPUSH 1,000 unit PRN PRN Administration Heparin Heparin Sodium (Porcine) 5,000 unit 06/03/17 16:23 06/05/17 10:14 Heparin - IVPUSH 5,000 unit PRN PRN Administration Heparin IV Flush 4 ml 06/05/17 10:15 Triple Lumen Flush IVPUSH PRN PRN Protocol Heparin Sodium (Porcine) 25, 500 mls @ 20 mls/hr 06/03/17 10:30 06/05/17 10:17 000 unit/ Sodium Chloride IV 800 unit/hr TITR MANNY Titration Protocol 1,000 UNIT/HR Famotidine/Sodium Chloride 50 mls @ 100 mls/hr 06/03/17 22:00 06/05/17 09:16 Pepcid 20 Mg Premixed Ivpb - IVPB 100 mls/hr BID MANNY Administration Sodium Chloride 1,000 mls @ 100 mls/hr 06/04/17 14:00 06/05/17 06:04 Normal Saline - IV 100 mls/hr ASDIR MANNY Administration Alteplase, Recombinant 15 mg/ 150 mls @ 10 mls/hr 06/04/17 14:45 Sodium Chloride IVPB 06/05/17 05:44 ONCE ONE 1 MG/HR Alteplase, Recombinant 15 mg/ 150 mls @ 10 mls/hr 06/04/17 14:45 Sodium Chloride IVPB 06/05/17 05:44 ONCE ONE 1 MG/HR Insulin Aspart 1 vial 06/03/17 16:30 06/05/17 06:30 Novolog Vial Sliding Scale - SQ 2 units ACHS MANNY Administration Protocol Morphine Sulfate 30 mg 06/03/17 22:00 06/05/17 09:18 Ms Contin - PO 30 mg BID MANNY Administration Pregabalin 100 mg 06/03/17 14:00 06/05/17 06:04 Lyrica - PO 100 mg TID MANNY Administration Venlafaxine HCl 75 mg 06/04/17 10:00 06/04/17 12:11 Effexor Xr - PO 75 mg DAILY MANNY Administration Objective: Vital Signs Period Temp Pulse Resp BP Sys/Kim Pulse Ox Last 24 Hr 97.2 F-99.2 F 63-88 14-24 86-131/43-74 95-100 Physical Exam: General: NAD, A&Ox3 HEENT: Right triple lumen Lungs: CTA bilaterally Heart: RRR, S1S2 Abd: Soft, non-tender, non-distended. Normoactive bowel sounds Ext: 2+ DP/PT bilaterally Neuro: no focal deficits CBCD WBC 7.6 K/mm3 (4.0-10.0) 06/05/17 05:20 RBC 2.68 M/mm3 (4.00-5.60) L 06/05/17 05:20 Hgb 8.6 GM/dL (11.7-16.9) L 06/05/17 05:20 Hct 26.0 % (35.4-49) L 06/05/17 05:20 MCV 96.7 fl (80-96) H 06/05/17 05:20 MCHC 33.0 g/dl (32.0-35.9) 06/05/17 05:20 RDW 17.0 % (11.9-15.9) H 06/05/17 05:20 Plt Count 158 K/MM3 (134-434) 06/05/17 05:20 MPV 8.9 fl (7.5-11.1) 06/05/17 05:20 CMP Sodium 139 mmol/L (136-145) 06/05/17 05:20 Potassium 4.4 mmol/L (3.5-5.1) 06/05/17 05:20 Chloride 110 mmol/L (98-107) H 06/05/17 05:20 Carbon Dioxide 19 mmol/L (21-32) L 06/05/17 05:20 Anion Gap 10 (8-16) 06/05/17 05:20 BUN 24 mg/dL (7-18) H 06/05/17 05:20 Creatinine 1.2 mg/dL (0.7-1.3) 06/05/17 05:20 Creat Clearance w eGFR 57.54 (>60) 06/05/17 05:20 Random Glucose 135 mg/dL (74-106) H 06/05/17 05:20 Calcium 6.7 mg/dL (8.5-10.1) L* 06/05/17 05:20 Total Bilirubin 0.8 mg/dL (0.2-1.0) 06/05/17 05:20 AST 255 U/L (15-37) H D 06/05/17 05:20 ALT 143 U/L (12-78) H D 06/05/17 05:20 Alkaline Phosphatase 193 U/L (45-117) H 06/05/17 05:20 Total Protein 5.6 g/dl (6.4-8.2) L 06/05/17 05:20 Albumin 2.2 g/dl (3.4-5.0) L 06/05/17 05:20 CARDIAC ENZYMES Creatine Kinase 1798 IU/L (39-308) H 06/04/17 05:40 Troponin I 1.35 ng/ml (0.00-0.05) H* 06/04/17 05:40 Microbiology 06/03/17 09:47 Blood - Peripheral Venous Blood Culture - Preliminary NO GROWTH OBTAINED AFTER 48 HOURS, INCUBATION TO CONTINUE FOR 3 DAYS. 06/03/17 09:40 Blood - Peripheral Venous Blood Culture - Preliminary NO GROWTH OBTAINED AFTER 48 HOURS, INCUBATION TO CONTINUE FOR 3 DAYS. 06/03/17 12:54 Urine - Urine Clean Catch Urine Culture - Final NO GROWTH OBTAINED Assessment: This is an 87 year old male with PMHx of prostate cancer, COPD, PE? years ago, NIDDM, anxiety, who presented to the ED with shortness of breath and weakness after a trip to [place]. Plan: 1) LLE popliteal DVT - Continue Heparin gtt 2) Pulmonary artery emboli with large clot burden - ECHO reviewed - Septal bowing and right heart train on CT - Had thrombectomy and thrombolysis yesterday with IR, TPA continuing through right triple lumen. Spoke to Dr. Carmichael this morning. Discussed that PTT is subtherapeutic, Dr. Carmichael recommended increasing TPA to 1mg/hr - For IVC filter today - Continue Heparin gtt for now, will need lifelong anticoagulation - O2 via NC as needed - Appreciate pulmonary/critical care consult 3) Elevated troponins - Trending down, peaked at 3.12 - 2/2 PE? - Will need repeat ECHO after intervention to follow degree of TR and MR - Appreciate cardiology consult 4) Elevated BNP - New onset CHF vs. RV strain - RV strain from large PE - Continue Heparin gtt -Appreciate cardiology consult 5) J CARLOS - Resolved - Continue gimenez catheter - Continue to trend 6) NIDDM - BGM ACHS - ISS ACHS - HgbA1c 6.3% 7) Prostate cancer - On Xgeva monthly - Stable 8) F/E/N: - Diabetic, sodium controlled diet - Monitor electrolytes 9) Prophylaxis: - On Heparin gtt 10) Dispo: - Requires continued ICU care CODE STATUS: FULL CODE Visit type - Emergency Visit Emergency Visit: Yes ED Registration Date: 06/03/17 Care time: The patient presented to the Emergency Department on the above date and was hospitalized for further evaluation of their emergent condition. - New Patient This patient is new to me today: No - Critical Care Critical Care patient: Yes Total Critical Care Time (in minutes): 45 Critical Care Statement: The care of this patient involved high complexity decision making to prevent further life threatening deterioration of the patient 's condition and/or to evaluate & treat vital organ system(s) failure or risk of failure.
[2017-06-05] MEDS: VENLAFAXINE HCL 75 MG E.R. CAPSULES (FP) PO SCH (10:59)
[2017-06-05] MEDS: ASPIRIN/DIPYRIDAMOLE 25 MG/200 MG CAPSULE (FP) PO SCH ×2 (10:59→21:57)
--- NOTE | 2017-06-05 11:03 | PN ---
Teaching Attending Note Name of Resident: Inocencio Cortes ATTENDING PHYSICIAN STATEMENT I saw and evaluated the patient. I reviewed the resident's note and discussed the case with the resident. I agree with the resident's findings and plan as documented. SUBJECTIVE: Pt seen and examined in the ICU. s/p catheter directed mechanical thrombectomy, tPA infusion in progress. States breathing is much improved. OBJECTIVE: Last Vital Signs Temp Pulse Resp BP Pulse Ox 98.9 F 69 21 118/46 95 06/05/17 10:00 06/05/17 10:00 06/05/17 10:00 06/05/17 10:00 06/05/17 08:00 Intake & Output 06/02/17 06/03/17 06/04/17 06/05/17 23:59 23:59 23:59 23:59 Intake Total 1520 1850 1610 Output Total 420 1425 400 Balance 5477 896 1413 Weight 178 lb 9.191 oz 183 lb 11.2 oz 186 lb 12.8 oz Gen: less tachypneic, cyanotic Heart: RRR Lung: decreased breath sounds at the bases Abd: soft, nontender Ext: no edema, less cyanotic CBC, BMP 06/05/17 05:20 06/05/17 05:20 Active Medications Acetylcysteine (Mucomyst 20 Oral / Inh Use Only*) 1,200 mg PO BID MANNY Stop: 06/05/17 12:00 Last Admin: 06/04/17 23:30 Dose: 1,200 mg Dipyridamole/Aspirin (Aggrenox -) 1 combo PO BID MANNY Last Admin: 06/05/17 10:59 Dose: 1 combo Heparin Sodium (Porcine) (Heparin -) 1,000 unit IVPUSH PRN PRN PRN Reason: Heparin Last Admin: 06/04/17 09:07 Dose: 1,000 unit Heparin Sodium (Porcine) (Heparin -) 5,000 unit IVPUSH PRN PRN PRN Reason: Heparin Last Admin: 06/05/17 10:14 Dose: 5,000 unit IV Flush (Triple Lumen Flush) 4 ml IVPUSH PRN PRN PRN Reason: Protocol Heparin Sodium (Porcine) 25, (000 unit/ Sodium Chloride) 500 mls @ 20 mls/hr IV TITR MANNY; 1,000 UNIT/HR PRN Reason: Protocol Last Titration: 06/05/17 10:17 Dose: 800 unit/hr Famotidine/Sodium Chloride (Pepcid 20 Mg Premixed Ivpb -) 50 mls @ 100 mls/hr IVPB BID [facility] Last Admin: 06/05/17 09:16 Dose: 100 mls/hr Sodium Chloride (Normal Saline -) 1,000 mls @ 100 mls/hr IV ASDIR [facility] Last Admin: 06/05/17 06:04 Dose: 100 mls/hr Alteplase, Recombinant 15 mg/ (Sodium Chloride) 150 mls @ 10 mls/hr IVPB ONCE ONE PRN Reason: 1 MG/HR Stop: 06/05/17 05:44 Alteplase, Recombinant 15 mg/ (Sodium Chloride) 150 mls @ 10 mls/hr IVPB ONCE ONE PRN Reason: 1 MG/HR Stop: 06/05/17 05:44 Insulin Aspart (Novolog Vial Sliding Scale -) 1 vial SQ ACHS [facility] PRN Reason: Protocol Last Admin: 06/05/17 06:30 Dose: 2 units Morphine Sulfate (Ms Contin -) 30 mg PO BID [facility] Last Admin: 06/05/17 09:18 Dose: 30 mg Pregabalin (Lyrica -) 100 mg PO TID [facility] Last Admin: 06/05/17 06:04 Dose: 100 mg Venlafaxine HCl (Effexor Xr -) 75 mg PO DAILY [facility] Last Admin: 06/05/17 10:59 Dose: 75 mg ASSESSMENT AND PLAN: Submassive Pulmonary Embolism with RV dysfunction LLE DVT +Troponins likely from above Lactic Acidosis resolved Acute Kidney Injury Metastatic Prostate Ca h/o PE DM - f/u official echo read - continue catheter directed thrombolysis - for repeat pulmonary angiogram and IVC filter today - continue heparin gtt - once invasive procedures completed, transition to LMWH - will need life long anticoagulation - continue mucomyst, IVF, as pt at risk for contrast induced nephropathy - monitor urine output, creatinine - O2 to keep spo2 >90% - continue ICU monitoring critical care time spent in reviewing chart, evaluating patient and formulating plan 35 min
[2017-06-05] MEDS ORDERED: INSULIN (NOVOLOG) ASPART 100 UNITS/ML 10ML VIAL ONE (11:06)
[2017-06-05] MEDS ORDERED: SODIUM CHLORIDE IVPB ONE (11:45)
[2017-06-05] MEDS ORDERED: ALTEPLASE IVPB ONE (11:45)
[2017-06-05] MEDS: ACETYLCYSTEINE 20% 200MG/ML 4 ML VIAL *FOR ORAL / INH USE ONLY PO SCH (12:12)
--- NOTE | 2017-06-05 12:12 | PN ---
Progress Note, Physician Chief Complaint: Events noted Remains in ICU, post catheter directed thrombectomy and infusion of TPA Hemodynamically stable History of Present Illness: Patient was seen and examined. Awake and alert. Chart was reviewed Denies chest pain, less SOB and no palpitations - Current Medication List Current Medications: Active Medications Dipyridamole/Aspirin (Aggrenox -) 1 combo PO BID MANNY Last Admin: 06/05/17 10:59 Dose: 1 combo Heparin Sodium (Porcine) (Heparin -) 1,000 unit IVPUSH PRN PRN PRN Reason: Heparin Last Admin: 06/04/17 09:07 Dose: 1,000 unit Heparin Sodium (Porcine) (Heparin -) 5,000 unit IVPUSH PRN PRN PRN Reason: Heparin Last Admin: 06/05/17 10:14 Dose: 5,000 unit IV Flush (Triple Lumen Flush) 4 ml IVPUSH PRN PRN PRN Reason: Protocol Heparin Sodium (Porcine) 25, (000 unit/ Sodium Chloride) 500 mls @ 20 mls/hr IV TITR MANNY; 1,000 UNIT/HR PRN Reason: Protocol Last Titration: 06/05/17 10:17 Dose: 800 unit/hr Famotidine/Sodium Chloride (Pepcid 20 Mg Premixed Ivpb -) 50 mls @ 100 mls/hr IVPB BID [facility] Last Admin: 06/05/17 09:16 Dose: 100 mls/hr Sodium Chloride (Normal Saline -) 1,000 mls @ 100 mls/hr IV ASDIR [facility] Last Admin: 06/05/17 06:04 Dose: 100 mls/hr Alteplase, Recombinant 15 mg/ (Sodium Chloride) 150 mls @ 10 mls/hr IVPB ONCE ONE PRN Reason: 1 MG/HR Stop: 06/06/17 02:44 Last Admin: 06/05/17 12:01 Dose: Not Given Alteplase, Recombinant 15 mg/ (Sodium Chloride) 150 mls @ 10 mls/hr IVPB ONCE ONE PRN Reason: 1 MG/HR Stop: 06/06/17 02:44 Last Admin: 06/05/17 12:00 Dose: Not Given Insulin Aspart (Novolog Vial Sliding Scale -) 1 vial SQ ACHS [facility] PRN Reason: Protocol Last Admin: 06/05/17 11:03 Dose: 2 units Morphine Sulfate (Ms Contin -) 30 mg PO BID [facility] Last Admin: 06/05/17 09:18 Dose: 30 mg Pregabalin (Lyrica -) 100 mg PO TID [facility] Last Admin: 06/05/17 06:04 Dose: 100 mg Venlafaxine HCl (Effexor Xr -) 75 mg PO DAILY [facility] Last Admin: 06/05/17 10:59 Dose: 75 mg - Objective Vital Signs: Vital Signs Temperature 98.9 F 06/05/17 10:00 Pulse Rate 70 06/05/17 11:58 Respiratory Rate 21 06/05/17 11:58 Blood Pressure 129/61 06/05/17 11:58 O2 Sat by Pulse Oximetry (%) 95 06/05/17 08:00 Cardiovascular: Yes: Regular Rate and Rhythm, S1, S2 Respiratory: Yes: Diminished Gastrointestinal: Yes: Normal Bowel Sounds, Soft. No: Tenderness Edema: No Additional Findings/Remarks: - Review of Systems Constitutional: denies: Chills, Fever Cardiovascular: reports: Shortness of Breath. denies: Chest Pain, Palpitations Respiratory: reports: SOB. denies: Orthopnea, PND Gastrointestinal: denies: Abdominal Pain, Constipation, Diarrhea, Melena, Nausea , Rectal Bleeding, Vomiting Neurological: reports: Weakness. denies: Dizziness, Headache, Seizure, Syncope Labs: CBC, BMP 06/05/17 05:20 06/05/17 05:20 INR, PTT INR 1.22 (0.82-1.09) 06/03/17 09:47 Problem List - Problems (1) J CARLOS (acute kidney injury) Code(s): N17.9 - ACUTE KIDNEY FAILURE, UNSPECIFIED (2) Diabetes Code(s): E11.9 - TYPE 2 DIABETES MELLITUS WITHOUT COMPLICATIONS Qualifiers: Diabetes mellitus type: type 2 (3) Hypotension Code(s): I95.9 - HYPOTENSION, UNSPECIFIED Qualifiers: Hypotension type: unspecified hypotension type Qualified Code(s): I95.9 - Hypotension, unspecified (4) Lactic acid acidosis Code(s): E87.2 - ACIDOSIS (5) Weakness Code(s): R53.1 - WEAKNESS (6) Pulmonary embolism Code(s): I26.99 - OTHER PULMONARY EMBOLISM WITHOUT ACUTE COR PULMONALE (7) DVT (deep venous thrombosis) Code(s): I82.409 - ACUTE EMBOLISM AND THOMBOS UNSP DEEP VN UNSP LOWER EXTREMITY (8) Dyspnea Code(s): R06.00 - DYSPNEA, UNSPECIFIED (9) Prostate CA Code(s): C61 - MALIGNANT NEOPLASM OF PROSTATE Assessment/Plan 1. Acute pulmonary thromboembolism with RV strain and hypoxia s/p catheter directed mechanical thrombectomy and TPA 2. DVT - left popliteal 3. History of metastatic prostate CA 4. 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 J CARLOS with elevation of creatinine and hyperkalemia 6. Anemia 7. Mitral valve regurgitation PLAN: 1. Continue Heparin drip, TPA infusion and ICU management. Patient will need life long anticoagulation 2. Echocardiography can be repeated after above intervention and to follow degree of TR and MR 3. Follow renal function and electrolytes 4. Continue supportive care as per intensive care Guarded. Further plans are to follow Vin Guillen MD
--- NOTE | 2017-06-05 13:54 | PN ---
Progress Note, Physician History of Present Illness: Pt seen and examined at bedside. He is awake and alert. He had the thrombectomy yesterday. - Current Medication List Current Medications: Active Medications Dipyridamole/Aspirin (Aggrenox -) 1 combo PO BID [facility] Last Admin: 06/05/17 10:59 Dose: 1 combo Heparin Sodium (Porcine) (Heparin -) 1,000 unit IVPUSH PRN PRN PRN Reason: Heparin Last Admin: 06/04/17 09:07 Dose: 1,000 unit Heparin Sodium (Porcine) (Heparin -) 5,000 unit IVPUSH PRN PRN PRN Reason: Heparin Last Admin: 06/05/17 10:14 Dose: 5,000 unit IV Flush (Triple Lumen Flush) 4 ml IVPUSH PRN PRN PRN Reason: Protocol Heparin Sodium (Porcine) 25, (000 unit/ Sodium Chloride) 500 mls @ 20 mls/hr IV TITR MANNY; 1,000 UNIT/HR PRN Reason: Protocol Last Titration: 06/05/17 10:17 Dose: 800 unit/hr Famotidine/Sodium Chloride (Pepcid 20 Mg Premixed Ivpb -) 50 mls @ 100 mls/hr IVPB BID [facility] Last Admin: 06/05/17 09:16 Dose: 100 mls/hr Sodium Chloride (Normal Saline -) 1,000 mls @ 100 mls/hr IV ASDIR [facility] Last Admin: 06/05/17 13:00 Dose: 100 mls/hr Alteplase, Recombinant 15 mg/ (Sodium Chloride) 150 mls @ 10 mls/hr IVPB ONCE ONE PRN Reason: 1 MG/HR Stop: 06/06/17 02:44 Last Admin: 06/05/17 12:01 Dose: Not Given Alteplase, Recombinant 15 mg/ (Sodium Chloride) 150 mls @ 10 mls/hr IVPB ONCE ONE PRN Reason: 1 MG/HR Stop: 06/06/17 02:44 Last Admin: 06/05/17 12:00 Dose: Not Given Insulin Aspart (Novolog Vial Sliding Scale -) 1 vial SQ ACHS [facility] PRN Reason: Protocol Last Admin: 06/05/17 11:03 Dose: 2 units Morphine Sulfate (Ms Contin -) 30 mg PO BID [facility] Last Admin: 06/05/17 09:18 Dose: 30 mg Pregabalin (Lyrica -) 100 mg PO TID [facility] Last Admin: 06/05/17 13:05 Dose: 100 mg Venlafaxine HCl (Effexor Xr -) 75 mg PO DAILY [facility] Last Admin: 06/05/17 10:59 Dose: 75 mg - Objective Vital Signs: Vital Signs Temperature 98.9 F 06/05/17 10:00 Pulse Rate 70 06/05/17 11:58 Respiratory Rate 21 06/05/17 11:58 Blood Pressure 129/61 06/05/17 11:58 O2 Sat by Pulse Oximetry (%) 95 06/05/17 08:00 Constitutional: Yes: Calm Eyes: Yes: Conjunctiva Clear Cardiovascular: Yes: S1, S2 Respiratory: Yes: On Nasal O2 Gastrointestinal: Yes: Soft Genitourinary: Yes: Campbell Present Extremities: Yes: WNL Edema: No Neurological: Yes: Oriented Psychiatric: Yes: Oriented Labs: CBC, BMP 06/05/17 05:20 06/05/17 05:20 INR, PTT INR 1.22 (0.82-1.09) 06/03/17 09:47 Problem List - Problems (1) J CARLOS (acute kidney injury) Code(s): N17.9 - ACUTE KIDNEY FAILURE, UNSPECIFIED (2) Diabetes Code(s): E11.9 - TYPE 2 DIABETES MELLITUS WITHOUT COMPLICATIONS Qualifiers: Diabetes mellitus type: type 2 (3) Hypotension Code(s): I95.9 - HYPOTENSION, UNSPECIFIED Qualifiers: Hypotension type: unspecified hypotension type Qualified Code(s): I95.9 - Hypotension, unspecified (4) Lactic acid acidosis Code(s): E87.2 - ACIDOSIS (5) Prostate cancer metastatic to bone Code(s): C61 - MALIGNANT NEOPLASM OF PROSTATE C79.51 - SECONDARY MALIGNANT NEOPLASM OF BONE (6) Suspected pulmonary embolism Code(s): I26.99 - OTHER PULMONARY EMBOLISM WITHOUT ACUTE COR PULMONALE (7) Weakness Code(s): R53.1 - WEAKNESS Assessment/Plan Current Medications Generic Name Dose Route Start Last Admin Trade Name Freq PRN Reason Stop Dose Admin Dipyridamole/Aspirin 1 combo 06/03/17 22:00 06/05/17 10:59 Aggrenox - PO 1 combo BID [facility] Administration Heparin Sodium (Porcine) 1,000 unit 06/03/17 16:23 06/04/17 09:07 Heparin - IVPUSH 1,000 unit PRN PRN Administration Heparin Heparin Sodium (Porcine) 5,000 unit 06/03/17 16:23 06/05/17 10:14 Heparin - IVPUSH 5,000 unit PRN PRN Administration Heparin IV Flush 4 ml 06/05/17 10:15 Triple Lumen Flush IVPUSH PRN PRN Protocol Heparin Sodium (Porcine) 25, 500 mls @ 20 mls/hr 06/03/17 10:30 06/05/17 10:17 000 unit/ Sodium Chloride IV 800 unit/hr TITR MANNY Titration Protocol 1,000 UNIT/HR Famotidine/Sodium Chloride 50 mls @ 100 mls/hr 06/03/17 22:00 06/05/17 09:16 Pepcid 20 Mg Premixed Ivpb - IVPB 100 mls/hr BID MANNY Administration Sodium Chloride 1,000 mls @ 100 mls/hr 06/04/17 14:00 06/05/17 13:00 Normal Saline - IV 100 mls/hr ASDIR MANNY Administration Alteplase, Recombinant 15 mg/ 150 mls @ 10 mls/hr 06/05/17 11:45 06/05/17 12:01 Sodium Chloride IVPB 06/06/17 02:44 Not Given ONCE ONE 1 MG/HR Alteplase, Recombinant 15 mg/ 150 mls @ 10 mls/hr 06/05/17 11:45 06/05/17 12:00 Sodium Chloride IVPB 06/06/17 02:44 Not Given ONCE ONE 1 MG/HR Insulin Aspart 1 vial 06/03/17 16:30 06/05/17 11:03 Novolog Vial Sliding Scale - SQ 2 units ACHS MANNY Administration Protocol Morphine Sulfate 30 mg 06/03/17 22:00 06/05/17 09:18 Ms Contin - PO 30 mg BID MANNY Administration Pregabalin 100 mg 06/03/17 14:00 06/05/17 13:05 Lyrica - PO 100 mg TID MANNY Administration Venlafaxine HCl 75 mg 06/04/17 10:00 06/05/17 10:59 Effexor Xr - PO 75 mg DAILY MANNY Administration Laboratory Tests 06/04/17 06/04/17 00:05 05:40 Lactic Acid 2.3 H* 1.4 Impression 1. J CARLOS 2. DVT 3. likely PE 4. elevated troponin 5. prostate cancer with mets 6. hypoxia 7. lactic acidosis 8. anemia 9. s/p thrombectomy Plan - renal function is improving - check creatinine daily - pt and understand the risk of JIAN - pt is s/p thrombectomy - will follow - cont fluids - mucomyst for prophylaxis as well - cxr reviewed - lactic acid is improved Dr Hughes
[2017-06-06 07:01] LABS: BASOPHIL 0.2 % (0-2.0); MCH 31.3 pg (25.7-33.7); MCHC 32.5 g/dl (32.0-35.9); MEAN CELL VOLUME 96.2 fl (80-96); MEAN PLT VOLUME 8.8 fl (7.5-11.1); NEUTROPHILS 80.8 % (42.8-82.8); PLATELET COUNT 161 K/MM3 (134-434); RDW 17.1 % (11.9-15.9); WHITE BLOOD COUNT 8.2 K/mm3 (4.0-10.0)
[2017-06-06] MEDS: PREGABALIN 50 MG CAPSULE PO SCH ×3 (07:05→21:40)
[2017-06-06] MEDS: INSULIN SLIDING SCALE (NOVOLOG) 1 VIAL SQ SCH ×4 (07:06→22:30)
[2017-06-06 07:30] LABS: ANION GAP 11 (8-16); CO2 20 mmol/L (21-32); GLUCOSE,RANDOM 140 mg/dL (74-106); MAGNESIUM 1.9 mg/dL (1.8-2.4); PHOSPHOROUS 1.4 mg/dL (2.5-4.9); SGOT/AST 111 U/L (15-37)
[2017-06-06 07:36] LABS: ALK PHOS 249 U/L (45-117); BILIRUBIN,TOTAL 0.9 mg/dL (0.2-1.0); CREATININE 0.9 mg/dL (0.7-1.3); SGPT/ALT 100 U/L (12-78); TOT PROT 5.1 g/dl (6.4-8.2)
[2017-06-06 07:43] LABS: INR 1.3 (0.82-1.09); PROTHROMBIN TIME (PATIENT) 14.4 SEC (9.98-11.88)
[2017-06-06 07:54] LABS: CALCIUM 6.4 mg/dL (8.5-10.1)
--- NOTE | 2017-06-06 08:08 | PN ---
Physical Exam: SUBJECTIVE: Patient seen and examined by me this AM - No overnight events. No major complaints. - tPA infusion completed. IVC placed by IR. - Pt endorses improvement in Ab pain overnight. States he has been constipated for four days. Ab-U/S with GB thickening - Pt afebrile, w/ no WBC elevation - Liver chemistries downtrending. - AM Echo pending to assess RV function. PM: - Pt mildly hypotensive to 90s systolic. Bolused 500ml NS. - Transition to LMWH from heparin gtt. First dose at 6PM tonight. - Plan for ambulating w/ PT. Monitor for orthostatic hypotension. - If MAP >65 consistently, will d/c gimenez and transfer to med-surg given clinical improvement. OBJECTIVE: Intake & Output 06/03/17 06/04/17 06/05/17 06/06/17 23:59 23:59 23:59 23:59 Intake Total 1520 1850 3622 Output Total 420 1425 1600 Balance 6229 481 2287 Weight 81 kg 83.325 kg 84.731 kg Vital Signs Period Temp Pulse Resp BP Sys/Kim Pulse Ox Last 24 Hr 98.0 F-99.0 F 69-80 16-23 92-136/46-78 97-100 GENERAL: The patient is awake, alert, and fully oriented, in NAD HEAD: Normal with no signs of trauma. EYES: PERRL, extraocular movements intact, sclera anicteric, conjunctiva clear. No ptosis. ENT: Oropharynx clear without exudates, moist mucous membranes. NECK: Trachea midline, full range of motion, supple. R IJ cordis in place, with no erythema or drainage. LUNGS: Breath sounds equal, clear to auscultation bilaterally, no wheezes, no crackles, labored breathing w/ minimal exertion HEART: Regular rate and rhythm, S1, S2 without murmur, rub or gallop. ABDOMEN: Significantly distended abdomen with mild RUQ pain on palpation. Negative campos's sign. Hypoactive bowel sounds, no guarding, no rebound, no hepatosplenomegaly, no masses. EXTREMITIES: 2+ pulses, warm, well-perfused, no edema. Negative zack's sign. BL mild resolving stasis dermatitis in LEs. NEUROLOGICAL: Cranial nerves II through XII grossly intact. Normal speech, with occasional aphasia. SKIN: Warm, dry, normal turgor. Ecchymoses on BL UE. Laboratory Results - last 24 hr CBC, BMP 06/06/17 05:20 06/06/17 05:20 06/05/17 06/05/17 06/05/17 08:03 11:02 17:09 WBC RBC Hgb Hct MCV MCH MCHC RDW Plt Count MPV Neutrophils % Lymphocytes % Monocytes % Eosinophils % Basophils % PTT (Actin FS) 31.7 Sodium Potassium Chloride Carbon Dioxide Anion Gap BUN Creatinine Creat Clearance w eGFR POC Glucometer 167.35782 [phone] Random Glucose Calcium Phosphorus Magnesium Total Bilirubin AST ALT Alkaline Phosphatase Total Protein Albumin 06/05/17 06/05/17 06/06/17 19:00 21:19 05:20 WBC 8.2 RBC 2.59 L Hgb 8.1 L Hct 24.9 L MCV 96.2 H MCH 31.3 MCHC 32.5 RDW 17.1 H Plt Count 161 MPV 8.8 Neutrophils % 80.8 Lymphocytes % 8.0 Monocytes % 10.0 Eosinophils % 1.0 Basophils % 0.2 PTT (Actin FS) 57.6 H D Sodium Potassium Chloride Carbon Dioxide Anion Gap BUN Creatinine Creat Clearance w eGFR POC Glucometer [phone] Random Glucose Calcium Phosphorus Magnesium Total Bilirubin AST ALT Alkaline Phosphatase Total Protein Albumin 06/06/17 06/06/17 05:20 06:23 WBC RBC Hgb Hct MCV MCH MCHC RDW Plt Count MPV Neutrophils % Lymphocytes % Monocytes % Eosinophils % Basophils % PTT (Actin FS) Sodium 140 Potassium 4.3 Chloride 109 H Carbon Dioxide 20 L Anion Gap 11 BUN 18 D Creatinine 0.9 D Creat Clearance w eGFR > 60 POC Glucometer [phone] Random Glucose 140 H Calcium 6.4 L* Phosphorus 1.4 L D Magnesium 1.9 Total Bilirubin 0.9 AST 111 H D ALT 100 H D Alkaline Phosphatase 249 H D Total Protein 5.1 L Albumin 2.0 L Active Medications Generic Name Dose Route Start Last Admin Trade Name Freq PRN Reason Stop Dose Admin Dipyridamole/Aspirin 1 combo 06/03/17 22:00 06/05/17 21:57 Aggrenox - PO 1 combo BID MANNY Administration Heparin Sodium (Porcine) 1,000 unit 06/03/17 16:23 06/04/17 09:07 Heparin - IVPUSH 1,000 unit PRN PRN Administration Heparin Heparin Sodium (Porcine) 5,000 unit 06/03/17 16:23 06/05/17 10:14 Heparin - IVPUSH 5,000 unit PRN PRN Administration Heparin IV Flush 4 ml 06/05/17 10:15 Triple Lumen Flush IVPUSH PRN PRN Protocol IV Flush 4 ml 06/05/17 17:18 Triple Lumen Flush IVPUSH PRN PRN Heparin Sodium (Porcine) 25, 500 mls @ 20 mls/hr 06/03/17 10:30 06/05/17 10:17 000 unit/ Sodium Chloride IV 800 unit/hr TITR MANNY Titration Protocol 1,000 UNIT/HR Famotidine/Sodium Chloride 50 mls @ 100 mls/hr 06/03/17 22:00 06/05/17 21:30 Pepcid 20 Mg Premixed Ivpb - IVPB 100 mls/hr BID MANNY Administration Sodium Chloride 1,000 mls @ 100 mls/hr 06/04/17 14:00 06/05/17 14:00 Normal Saline - IV Not Given ASDIR MANNY Insulin Aspart 1 vial 06/03/17 16:30 06/06/17 07:06 Novolog Vial Sliding Scale - SQ 2 units ACHS MANNY Administration Protocol Morphine Sulfate 30 mg 06/03/17 22:00 06/05/17 21:22 Ms Contin - PO 30 mg BID MANNY Administration Pregabalin 100 mg 06/03/17 14:00 06/06/17 07:05 Lyrica - PO 100 mg TID MANNY Administration Venlafaxine HCl 75 mg 06/04/17 10:00 06/05/17 10:59 Effexor Xr - PO 75 mg DAILY MANNY Administration Imaging: US Renal and urinary bladder ultrasound 06/03/17: The right kidney measures 10.4 cm in sagittal with a simple cyst in its lower pole measuring 1.1 cm Left kidney measures 9.5 cm in sagittal length with a simple cyst in its lower pole measuring 1.1 cm. There is no evidence of hydronephrosis or renal stones, bilaterally Visualized portion of the liver appears unremarkable. An unclamped Gimenez catheter is present in an empty urinary bladder and hence it could not be evaluated. Prostate gland was not visualized. IMPRESSION: Small simple cyst in the right and left kidney. Both kidneys appear unremarkable. Empty urinary bladder. Gimenez catheter was not clamped. Reported By: Tray Mead MD 06/03/17 1511 Bilateral leg Doppler venous ultrasound 06/03/17: Grayscale, pulsed Doppler and color Doppler interrogation of both lower extremities deep venous system was performed. There is no evidence of deep venous thromboses in the right lower extremity. In the left lower extremity, there is incomplete compression of the popliteal vein consistent with thrombosis. The left common femoral vein, superficial femoral and popliteal vein are patent without evidence of thrombosis. Visualized portion of the greater saphenous and deep femoral vein are patent without evidence of thrombosis. No Cherry's cyst is identified in the popliteal fossa, bilaterally. IMPRESSION: Findings consistent with deep venous thromboses in the left lower extremity involving the popliteal vein. Reported By: Tray Mead MD 06/03/17 1508 EKst degree AV block. LAD. Left anterior fasicular block. No evidence of STEMI or RV strain pattern. CXR (06/03) - No evidence of PNA, pneumothorax or pleural effusion. Mild cardiomegaly. CTA (06/04) - Per my read, bilateral saddle embolus in R and L PA. Flattening of interventricular septum and RV enlargement, indicative of RV strain. CXR (06/05) - Holden ramona in place. No pneumo. Minimal left basilar atelectasis. ASSESSMENT/PLAN: 87 yo man with pmh of metastatic prostate Ca and HTN, now with J CARLOS, L popliteal DVT and CTA-confirmed saddle embolus in setting of two days of acute SOB following plane flight back from [place] on 05/30. Pt now post-tPA infusion and IVC filter placement, doing well with no complaints and significant improvement in respiratory status, with no further SOB or dyspnea. Mildly hypotensive in AM to 90s, received 500cc NS bolus. No evidence of J CARLOS pending IV contrast infusion. No further abdominal pain today, however abdominal U/S with increased GB thickening. Plan for ambulation with PT today and transfer to med-surg for further management. #Neuro Monitor MS MS contin 30mg BID for hip pain/metastatic dz Lyrica 100mg TID for neuropathy #Cardiac AM ECHO performed. Pending read. Trend BNP Cardiology recommendations appreciated #Pulm NC 2L O2 tx. Titrate to >94% O2 sat #Heme LMWH 80mg BID. Heparin gtt d/c'ed Will require lifelong AC w/ LMWH Continue home Aggrenox #Renal Hypo-Phos repleted in AM. IVF NS 100ml/hr Continue to trend BUN, Cr and monitor for post-contrast J CARLOS Plan to d/c gimenez today pending stable MAPs #GI Downtrending AST, ALT, Alk Phos. Suspicion for possible shock liver. Abdominal U/S w/ thickened g/b. No evidence of cholecystitis; pt afebrile, no WBC elevation Continue to trend LFTs Famotidine 20mg IVPB BID for GERD #Endo Insulin ss ACHS Hold home medications f/u Hemoglobin A1c #Psych Venlafaxine 75 mg PO #FEN Fluids: NS 100ml/hr Electrolytes: Routine lytes. Monitor for hypo-phos Nutrition: Diabetic diet Dispo: Transfer to med-surg for further management Inocencio Cortes, PGY1 Plan discussed with attending, Dr. Shanks Visit type - Emergency Visit Emergency Visit: No - New Patient This patient is new to me today: Yes Date on this admission: 06/06/17 - Critical Care Critical Care patient: Yes Total Critical Care Time (in minutes): 35 Critical Care Statement: The care of this patient involved high complexity decision making to prevent further life threatening deterioration of the patient 's condition and/or to evaluate & treat vital organ system(s) failure or risk of failure.
[2017-06-06] MEDS ORDERED: PT OWN MED DRAWER 7, Y5N ONE (09:47)
[2017-06-06] MEDS: morphine SO4 SUSTAINED ACTING 30 MG TABLET.SA PO SCH ×2 (09:50→21:33)
[2017-06-06] MEDS: HEPARIN NA (PORCINE) 5,000 UNITS/ML 1ML VIAL IVPUSH PRN (09:50)
[2017-06-06] MEDS: ASPIRIN/DIPYRIDAMOLE 25 MG/200 MG CAPSULE (FP) PO SCH ×2 (09:51→22:30)
[2017-06-06] MEDS: FAMOTIDINE 20 MG/50 ML IVPB 50 ML IVPB SCH ×2 (09:51→21:33)
[2017-06-06] MEDS: HEPARIN - 25,000 UNIT in SODIUM CHLORIDE 495 ML IV SCH (10:30)
--- NOTE | 2017-06-06 11:23 | PN ---
Progress Note, Physician Chief Complaint: Events noted Remains in ICU, post catheter directed thrombectomy and infusion of TPA Generalized weakness, otherwise better History of Present Illness: Patient was seen and examined. Awake and alert. Chart was reviewed Denies chest pain, less SOB and no palpitations - Current Medication List Current Medications: Active Medications Dipyridamole/Aspirin (Aggrenox -) 1 combo PO BID MANNY Last Admin: 06/06/17 09:51 Dose: 1 combo Heparin Sodium (Porcine) (Heparin -) 1,000 unit IVPUSH PRN PRN PRN Reason: Heparin Last Admin: 06/04/17 09:07 Dose: 1,000 unit Heparin Sodium (Porcine) (Heparin -) 5,000 unit IVPUSH PRN PRN PRN Reason: Heparin Last Admin: 06/06/17 09:50 Dose: 5,000 unit IV Flush (Triple Lumen Flush) 4 ml IVPUSH PRN PRN PRN Reason: Protocol IV Flush (Triple Lumen Flush) 4 ml IVPUSH PRN PRN Heparin Sodium (Porcine) 25, (000 unit/ Sodium Chloride) 500 mls @ 20 mls/hr IV TITR MANNY; 1,000 UNIT/HR PRN Reason: Protocol Last Admin: 06/06/17 10:30 Dose: Not Given Famotidine/Sodium Chloride (Pepcid 20 Mg Premixed Ivpb -) 50 mls @ 100 mls/hr IVPB BID [facility] Last Admin: 06/06/17 09:51 Dose: 100 mls/hr Sodium Chloride (Normal Saline -) 1,000 mls @ 100 mls/hr IV ASDIR [facility] Last Admin: 06/05/17 14:00 Dose: Not Given Insulin Aspart (Novolog Vial Sliding Scale -) 1 vial SQ ACHS [facility] PRN Reason: Protocol Last Admin: 06/06/17 07:06 Dose: 2 units Morphine Sulfate (Ms Contin -) 30 mg PO BID [facility] Last Admin: 06/06/17 09:50 Dose: 30 mg Pregabalin (Lyrica -) 100 mg PO TID [facility] Last Admin: 06/06/17 07:05 Dose: 100 mg Venlafaxine HCl (Effexor Xr -) 75 mg PO DAILY [facility] Last Admin: 06/05/17 10:59 Dose: 75 mg - Objective Vital Signs: Vital Signs Temperature 98 F 06/06/17 10:00 Pulse Rate 80 06/06/17 10:56 Respiratory Rate 20 06/06/17 10:00 Blood Pressure 100/48 06/06/17 10:00 O2 Sat by Pulse Oximetry (%) 99 06/06/17 10:56 Neck: Yes: Supple Cardiovascular: Yes: Regular Rate and Rhythm, S1, S2 Respiratory: Yes: Diminished Gastrointestinal: Yes: Normal Bowel Sounds, Soft. No: Tenderness Edema: No Additional Findings/Remarks: - Review of Systems Constitutional: denies: Chills, Fever Cardiovascular: reports: Shortness of Breath. denies: Chest Pain, Palpitations Respiratory: reports: SOB. denies: Orthopnea, PND Gastrointestinal: denies: Abdominal Pain, Constipation, Diarrhea, Melena, Nausea , Rectal Bleeding, Vomiting Neurological: reports: Weakness. denies: Dizziness, Headache, Seizure, Syncope Labs: CBC, BMP 06/06/17 05:20 06/06/17 05:20 INR, PTT INR 1.30 (0.82-1.09) H D 06/06/17 05:20 Problem List - Problems (1) J CARLOS (acute kidney injury) Code(s): N17.9 - ACUTE KIDNEY FAILURE, UNSPECIFIED (2) Diabetes Code(s): E11.9 - TYPE 2 DIABETES MELLITUS WITHOUT COMPLICATIONS Qualifiers: Diabetes mellitus type: type 2 Diabetes mellitus complication status: without complication Diabetes mellitus detention insulin use: without detention use Qualified Code(s): E11.9 - Type 2 diabetes mellitus without complications (3) Hypotension Code(s): I95.9 - HYPOTENSION, UNSPECIFIED Qualifiers: Hypotension type: unspecified hypotension type Qualified Code(s): I95.9 - Hypotension, unspecified (4) Lactic acid acidosis Code(s): E87.2 - ACIDOSIS (5) Weakness Code(s): R53.1 - WEAKNESS (6) Pulmonary embolism Code(s): I26.99 - OTHER PULMONARY EMBOLISM WITHOUT ACUTE COR PULMONALE Qualifiers: Pulmonary embolism type: saddle Chronicity: acute Acute cor pulmonale presence: with acute cor pulmonale Qualified Code(s): I26.02 - Saddle embolus of pulmonary artery with acute cor pulmonale (7) DVT (deep venous thrombosis) Code(s): I82.409 - ACUTE EMBOLISM AND THOMBOS UNSP DEEP VN UNSP LOWER EXTREMITY Qualifiers: DVT location: lower extremity Affected thrombotic vein of extremity: popliteal Chronicity: acute Laterality: left Qualified Code(s): I82.432 - Acute embolism and thrombosis of left popliteal vein (8) Dyspnea Code(s): R06.00 - DYSPNEA, UNSPECIFIED Qualifiers: Dyspnea type: dyspnea on exertion Qualified Code(s): R06.09 - Other forms of dyspnea (9) Prostate CA Code(s): C61 - MALIGNANT NEOPLASM OF PROSTATE Assessment/Plan 1. Acute pulmonary thromboembolism with RV strain and hypoxia s/p catheter directed mechanical thrombectomy and TPA 2. DVT - left popliteal 3. History of metastatic prostate CA 4. 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 J CARLOS with elevation of creatinine and hyperkalemia 6. Anemia 7. Mitral valve regurgitation PLAN: 1. Continue Heparin drip. Patient will need life long anticoagulation 2. Echocardiography can be repeated after above intervention and to follow degree of TR and MR (previous study repeated) 3. Follow renal function and electrolytes 4. Continue supportive care as per intensive care. Consider OOB if tolerated Guarded. Further plans are to follow Vin Guillen MD
[2017-06-06] MEDS: VENLAFAXINE HCL 75 MG E.R. CAPSULES (FP) PO SCH (11:40)
--- NOTE | 2017-06-06 11:40 | PN ---
Teaching Attending Note Name of Resident: Inocencio Cortes ATTENDING PHYSICIAN STATEMENT I saw and evaluated the patient. I reviewed the resident's note and discussed the case with the resident. I agree with the resident's findings and plan as documented. SUBJECTIVE: Pt seen and examined in the ICU. Continues to improve, denies shortness of breath or chest pain. Saturating well on nasal cannula. Cordis catheter replaced by triple lumen catheter. IVC filter placed yesterday. No further abdominal pain. OBJECTIVE: Last Vital Signs Temp Pulse Resp BP Pulse Ox 98 F 80 20 100/48 99 06/06/17 10:00 06/06/17 10:56 06/06/17 10:00 06/06/17 10:00 06/06/17 10:56 Intake & Output 06/03/17 06/04/17 06/05/17 06/06/17 23:59 23:59 23:59 23:59 Intake Total 1520 1850 3622 Output Total 420 1425 1600 Balance 7517 956 9226 Weight 178 lb 9.191 oz 183 lb 11.2 oz 186 lb 12.8 oz Gen: NAD at rest Heart: RRR Lung: decreased breath sounds at the bases Abd: soft, nontender Ext: no edema CBC, BMP 06/06/17 05:20 06/06/17 05:20 Active Medications Dipyridamole/Aspirin (Aggrenox -) 1 combo PO BID MANNY Last Admin: 06/06/17 09:51 Dose: 1 combo Heparin Sodium (Porcine) (Heparin -) 1,000 unit IVPUSH PRN PRN PRN Reason: Heparin Last Admin: 06/04/17 09:07 Dose: 1,000 unit Heparin Sodium (Porcine) (Heparin -) 5,000 unit IVPUSH PRN PRN PRN Reason: Heparin Last Admin: 06/06/17 09:50 Dose: 5,000 unit IV Flush (Triple Lumen Flush) 4 ml IVPUSH PRN PRN PRN Reason: Protocol IV Flush (Triple Lumen Flush) 4 ml IVPUSH PRN PRN Heparin Sodium (Porcine) 25, (000 unit/ Sodium Chloride) 500 mls @ 20 mls/hr IV TITR MANNY; 1,000 UNIT/HR PRN Reason: Protocol Last Admin: 06/06/17 10:30 Dose: Not Given Famotidine/Sodium Chloride (Pepcid 20 Mg Premixed Ivpb -) 50 mls @ 100 mls/hr IVPB BID [facility] Last Admin: 06/06/17 09:51 Dose: 100 mls/hr Sodium Chloride (Normal Saline -) 1,000 mls @ 100 mls/hr IV ASDIR [facility] Last Admin: 06/05/17 14:00 Dose: Not Given Insulin Aspart (Novolog Vial Sliding Scale -) 1 vial SQ ACHS [facility] PRN Reason: Protocol Last Admin: 06/06/17 07:06 Dose: 2 units Morphine Sulfate (Ms Contin -) 30 mg PO BID [facility] Last Admin: 06/06/17 09:50 Dose: 30 mg Pregabalin (Lyrica -) 100 mg PO TID [facility] Last Admin: 06/06/17 07:05 Dose: 100 mg Venlafaxine HCl (Effexor Xr -) 75 mg PO DAILY [facility] Last Admin: 06/05/17 10:59 Dose: 75 mg ASSESSMENT AND PLAN: Submassive Pulmonary Embolism with RV dysfunction s/p catheter directed thrombectomy/thrombolysis LLE DVT s/p IVC filter +Troponins likely from above Lactic Acidosis resolved Acute Kidney Injury Metastatic Prostate Ca h/o PE DM - f/u official echo read - start LMWH and stop heparin gtt - will need life long anticoagulation - monitor urine output, creatinine - O2 to keep Spo2 >90% - can monitor on floor
[2017-06-06] MEDS ORDERED: SODIUM CHLORIDE 500 ML IV STA (12:39)
[2017-06-06] MEDS: POLYETHYLENE GLYCOL 3350 119 GM BTL PO SCH (12:44)
[2017-06-06] MEDS: SODIUM CHLORIDE 1,000 ML IV SCH ×2 (13:28→14:00)
[2017-06-06] MEDS ORDERED: CALCIUM GLUCONATE 10% - 1,000 MG/10 ML VIAL IVPUSH ONE (16:07)
[2017-06-06] MEDS ORDERED: CALCIUM GLUCONATE 10% - 1,000 MG/10 ML VIAL IVPB ONE (16:34)
[2017-06-06] MEDS: NAPH,MB-DB/K PH,MBDB POWDER PACKET PO SCH ×2 (16:43→21:34)
--- NOTE | 2017-06-06 16:57 | PN ---
Physical Exam: SUBJECTIVE: Patient seen and examined States he still feel weak. Denies pain or discomfort. OBJECTIVE: Hypotensive but asymptomatic systolic in the 90s, on IVF S/p heparin drip now, started on Lovenox Vital Signs Period Temp Pulse Resp BP Sys/Kim Pulse Ox Last 24 Hr 97.7 F-99.0 F 70-80 16-22 91-131/44-70 96-100 GENERAL: The patient is awake, alert, and fully oriented, in no acute distress. HEAD: Normal with no signs of trauma. EYES: PERRL, extraocular movements intact, sclera anicteric, conjunctiva clear. No ptosis. ENT: Oropharynx clear without exudates, moist mucous membranes. NECK: Trachea midline, full range of motion, supple. R IJ cordis in place, with no erythema or drainage. LUNGS: Breath sounds equal, clear to auscultation bilaterally, no wheezes, no crackles, labored breathing w/ minimal exertion HEART: Regular rate and rhythm, S1, S2 without murmur, rub or gallop. ABDOMEN: Distended abdomen with RUQ pain on light palpation. Hypoactive bowel sounds, no guarding, no rebound, no hepatosplenomegaly, no masses. EXTREMITIES: 2+ pulses, warm, well-perfused, no edema. Negative zack's sign. BL mild resolving stasis dermatitis in LEs. NEUROLOGICAL: Normal speech SKIN: Warm, dry, normal turgor Laboratory Results - last 24 hr 06/05/17 06/05/17 06/05/17 17:09 19:00 21:19 WBC RBC Hgb Hct MCV MCH MCHC RDW Plt Count MPV Neutrophils % Lymphocytes % Monocytes % Eosinophils % Basophils % INR PTT (Actin FS) 57.6 H D Sodium Potassium Chloride Carbon Dioxide Anion Gap BUN Creatinine Creat Clearance w eGFR POC Glucometer 128.77958 184.47362 Random Glucose Calcium Phosphorus Magnesium Total Bilirubin AST ALT Alkaline Phosphatase Total Protein Albumin 06/06/17 06/06/17 06/06/17 05:20 05:20 05:20 WBC 8.2 RBC 2.59 L Hgb 8.1 L Hct 24.9 L MCV 96.2 H MCH 31.3 MCHC 32.5 RDW 17.1 H Plt Count 161 MPV 8.8 Neutrophils % 80.8 Lymphocytes % 8.0 Monocytes % 10.0 Eosinophils % 1.0 Basophils % 0.2 INR 1.30 H D PTT (Actin FS) Sodium 140 Potassium 4.3 Chloride 109 H Carbon Dioxide 20 L Anion Gap 11 BUN 18 D Creatinine 0.9 D Creat Clearance w eGFR > 60 POC Glucometer Random Glucose 140 H Calcium 6.4 L* Phosphorus 1.4 L D Magnesium 1.9 Total Bilirubin 0.9 AST 111 H D ALT 100 H D Alkaline Phosphatase 249 H D Total Protein 5.1 L Albumin 2.0 L 06/06/17 06/06/17 06/06/17 05:20 06:23 11:20 WBC RBC Hgb Hct MCV MCH MCHC RDW Plt Count MPV Neutrophils % Lymphocytes % Monocytes % Eosinophils % Basophils % INR PTT (Actin FS) 33.7 D Sodium Potassium Chloride Carbon Dioxide Anion Gap BUN Creatinine Creat Clearance w eGFR POC Glucometer 163.79974 211.53910 Random Glucose Calcium Phosphorus Magnesium Total Bilirubin AST ALT Alkaline Phosphatase Total Protein Albumin Active Medications Generic Name Dose Route Start Last Admin Trade Name Freq PRN Reason Stop Dose Admin Dipyridamole/Aspirin 1 combo 06/03/17 22:00 06/06/17 09:51 Aggrenox - PO 1 combo BID MANNY Administration Enoxaparin Sodium 80 mg 06/06/17 22:00 Lovenox - SQ BID MANNY Heparin Sodium (Porcine) 1,000 unit 06/03/17 16:23 06/04/17 09:07 Heparin - IVPUSH 1,000 unit PRN PRN Administration Heparin Heparin Sodium (Porcine) 5,000 unit 06/03/17 16:23 06/06/17 09:50 Heparin - IVPUSH 5,000 unit PRN PRN Administration Heparin IV Flush 4 ml 06/05/17 10:15 Triple Lumen Flush IVPUSH PRN PRN Protocol IV Flush 4 ml 06/05/17 17:18 Triple Lumen Flush IVPUSH PRN PRN Famotidine/Sodium Chloride 50 mls @ 100 mls/hr 06/03/17 22:00 06/06/17 09:51 Pepcid 20 Mg Premixed Ivpb - IVPB 100 mls/hr BID MANNY Administration Sodium Chloride 1,000 mls @ 100 mls/hr 06/04/17 14:00 06/06/17 14:00 Normal Saline - IV Not Given ASDIR MANNY Insulin Aspart 1 vial 06/03/17 16:30 06/06/17 16:42 Novolog Vial Sliding Scale - SQ 2 units ACHS MANNY Administration Protocol Morphine Sulfate 30 mg 06/03/17 22:00 06/06/17 09:50 Ms Contin - PO 30 mg BID MANNY Administration Polyethylene Glycol 17 gm 06/06/17 12:45 06/06/17 12:44 Miralax (For Daily Use) - PO 17 grams DAILY MANNY Administration Potassium Phos/Sodium Phos 1 packet 06/06/17 16:15 06/06/17 16:43 Phos-Nak Packet - PO 06/06/17 22:01 1 packet BID MANNY Administration Pregabalin 100 mg 06/03/17 14:00 06/06/17 13:30 Lyrica - PO 100 mg TID MANNY Administration Venlafaxine HCl 75 mg 06/04/17 10:00 06/06/17 11:40 Effexor Xr - PO 75 mg DAILY MANNY Administration ASSESSMENT/PLAN: Patient is an 87 year old male with a significant past medical hisory of prostate cancer, HTN, PE, carotid artery disease (on aggrenox) GERD, COPD, NIDDM and anxiety. He presented to the ED on 06/03/2017 with shortness of breath on exertion and weakness after traveling to [place] on 05/30/2017 via airplane. He was reported to have collapsed at home but denies any head injury or trauma. He was recently treated for bronchitis as an outpatient and reports finishing full course of antibiotics. His last antibiotic dose was on 2016. He is s/p thrombectomy and thrombosis on 06/[address] Kunz. He has an IVC filter placed on 06/05/2017. Imaging: Chest CTA 06/04/2017: extensive pulmonary artery emboli with large clot burden. Abnormal bowing of the intra. septum concerning for a heart strain. 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 Vascular Study: Lower ext DVT (left popliteal dvt) Hematology: Lower ext DVT (left popliteal dvt)/Pulmonary artery emboli with large clot burden A/P: Echo reviewed Chest CTA with septal bowing and right heart strain. S/p thrombectomy and thrombolysis with IR s/p TPA Had IVC filter placed on 06/05/2017 Will need lifelong anticoagulation, now on Aggrenox and Lovenox On 2 liters nasal cannula Pulmonary following Cardiology: Elevated troponins A/P: trops: peaked at 3.12 now 1.35 Repeat echocardiogram after intervention Cardiology following Hypertension - chronic A/P: now hypotensive, monitor BP Renal/: J CARLOS - resolved A/P: monitor bmp in a.m. to trend has gimenez catheter Prostate cancer hx, bone mets disease indicated on CT A/P: will need outpatient oncology follow up when more stable On home Xgeva Endocrine: Diabetes A/P: monitor bgms F.E.N. Fluids: NS Electrolytes: hypocalcemia: corrected calcium 8.0: calcium gluconate ivpb x 1 today Nutrition: diabetic diet Prophylaxis: DVT: Aggrenox BID, Lovenox BID GI: Pepcid Disposition: Requires continued ICU care. Full code
--- NOTE | 2017-06-06 17:10 | PN ---
Progress Note, Physician History of Present Illness: Pt seen and examined at bedside. He is awake and appears comfortable. - Current Medication List Current Medications: Active Medications Dipyridamole/Aspirin (Aggrenox -) 1 combo PO BID [facility] Last Admin: 06/06/17 09:51 Dose: 1 combo Enoxaparin Sodium (Lovenox -) 80 mg SQ BID [facility] Heparin Sodium (Porcine) (Heparin -) 1,000 unit IVPUSH PRN PRN PRN Reason: Heparin Last Admin: 06/04/17 09:07 Dose: 1,000 unit Heparin Sodium (Porcine) (Heparin -) 5,000 unit IVPUSH PRN PRN PRN Reason: Heparin Last Admin: 06/06/17 09:50 Dose: 5,000 unit IV Flush (Triple Lumen Flush) 4 ml IVPUSH PRN PRN PRN Reason: Protocol IV Flush (Triple Lumen Flush) 4 ml IVPUSH PRN PRN Famotidine/Sodium Chloride (Pepcid 20 Mg Premixed Ivpb -) 50 mls @ 100 mls/hr IVPB BID [facility] Last Admin: 06/06/17 09:51 Dose: 100 mls/hr Sodium Chloride (Normal Saline -) 1,000 mls @ 100 mls/hr IV ASDIR [facility] Last Admin: 06/06/17 14:00 Dose: Not Given Insulin Aspart (Novolog Vial Sliding Scale -) 1 vial SQ ACHS MANNY PRN Reason: Protocol Last Admin: 06/06/17 16:42 Dose: 2 units Morphine Sulfate (Ms Contin -) 30 mg PO BID [facility] Last Admin: 06/06/17 09:50 Dose: 30 mg Polyethylene Glycol (Miralax (For Daily Use) -) 17 gm PO DAILY [facility] Last Admin: 06/06/17 12:44 Dose: 17 grams Potassium Phos/Sodium Phos (Phos-Nak Packet -) 1 packet PO BID [facility] Stop: 06/06/17 22:01 Last Admin: 06/06/17 16:43 Dose: 1 packet Pregabalin (Lyrica -) 100 mg PO TID [facility] Last Admin: 06/06/17 13:30 Dose: 100 mg Venlafaxine HCl (Effexor Xr -) 75 mg PO DAILY [facility] Last Admin: 06/06/17 11:40 Dose: 75 mg - Objective Vital Signs: Vital Signs Temperature 97.7 F 08/31/17 16:00 Pulse Rate 72 06/06/17 16:00 Respiratory Rate 19 06/06/17 16:00 Blood Pressure 96/57 06/06/17 16:00 O2 Sat by Pulse Oximetry (%) 99 06/06/17 10:56 Constitutional: Yes: Calm Eyes: Yes: Conjunctiva Clear HENT: Yes: Atraumatic Neck: Yes: Supple Cardiovascular: Yes: S1, S2 Respiratory: Yes: On Nasal O2 Gastrointestinal: Yes: Soft Genitourinary: Yes: Campbell Present Musculoskeletal: Yes: WNL Edema: No Neurological: Yes: Oriented Psychiatric: Yes: Oriented Labs: CBC, BMP 06/06/17 05:20 06/06/17 05:20 INR, PTT INR 1.30 (0.82-1.09) H D 06/06/17 05:20 Problem List - Problems (1) J CARLOS (acute kidney injury) Code(s): N17.9 - ACUTE KIDNEY FAILURE, UNSPECIFIED (2) Diabetes Code(s): E11.9 - TYPE 2 DIABETES MELLITUS WITHOUT COMPLICATIONS Qualifiers: Qualified Code(s): E11.9 - Type 2 diabetes mellitus without complications (3) Hypotension Code(s): I95.9 - HYPOTENSION, UNSPECIFIED Qualifiers: Qualified Code(s): I95.9 - Hypotension, unspecified (4) Lactic acid acidosis Code(s): E87.2 - ACIDOSIS (5) Prostate cancer metastatic to bone Code(s): C61 - MALIGNANT NEOPLASM OF PROSTATE C79.51 - SECONDARY MALIGNANT NEOPLASM OF BONE (6) Suspected pulmonary embolism Code(s): I26.99 - OTHER PULMONARY EMBOLISM WITHOUT ACUTE COR PULMONALE (7) Weakness Code(s): R53.1 - WEAKNESS Assessment/Plan Current Medications Generic Name Dose Route Start Last Admin Trade Name Freq PRN Reason Stop Dose Admin Dipyridamole/Aspirin 1 combo 06/03/17 22:00 06/06/17 09:51 Aggrenox - PO 1 combo BID MANNY Administration Enoxaparin Sodium 80 mg 06/06/17 22:00 Lovenox - SQ BID MANNY Heparin Sodium (Porcine) 1,000 unit 06/03/17 16:23 06/04/17 09:07 Heparin - IVPUSH 1,000 unit PRN PRN Administration Heparin Heparin Sodium (Porcine) 5,000 unit 06/03/17 16:23 06/06/17 09:50 Heparin - IVPUSH 5,000 unit PRN PRN Administration Heparin IV Flush 4 ml 06/05/17 10:15 Triple Lumen Flush IVPUSH PRN PRN Protocol IV Flush 4 ml 06/05/17 17:18 Triple Lumen Flush IVPUSH PRN PRN Famotidine/Sodium Chloride 50 mls @ 100 mls/hr 06/03/17 22:00 06/06/17 09:51 Pepcid 20 Mg Premixed Ivpb - IVPB 100 mls/hr BID MANNY Administration Sodium Chloride 1,000 mls @ 100 mls/hr 06/04/17 14:00 06/06/17 14:00 Normal Saline - IV Not Given ASDIR MANNY Insulin Aspart 1 vial 06/03/17 16:30 06/06/17 16:42 Novolog Vial Sliding Scale - SQ 2 units ACHS MANNY Administration Protocol Morphine Sulfate 30 mg 06/03/17 22:00 06/06/17 09:50 Ms Contin - PO 30 mg BID MANNY Administration Polyethylene Glycol 17 gm 06/06/17 12:45 06/06/17 12:44 Miralax (For Daily Use) - PO 17 grams DAILY MANNY Administration Potassium Phos/Sodium Phos 1 packet 06/06/17 16:15 06/06/17 16:43 Phos-Nak Packet - PO 06/06/17 22:01 1 packet BID MANNY Administration Pregabalin 100 mg 06/03/17 14:00 06/06/17 13:30 Lyrica - PO 100 mg TID MANNY Administration Venlafaxine HCl 75 mg 06/04/17 10:00 06/06/17 11:40 Effexor Xr - PO 75 mg DAILY MANNY Administration Laboratory Tests 06/06/17 05:20 Calcium 6.4 L* Phosphorus 1.4 L D Albumin 2.0 L Impression 1. J CARLOS 2. DVT 3. likely PE 4. elevated troponin 5. prostate cancer with mets 6. hypoxia 7. lactic acidosis 8. anemia 9. s/p thrombectomy Plan - replace phos and calcium - renal function is stable - repeat labs in am - avoid nephrotoxins Dr Hughes
[2017-06-06] MEDS: ENOXAPARIN NA (PORCINE) 80 MG/0.8 ML DISP.SYRIN SQ SCH (21:33)
[2017-06-07] MEDS: PREGABALIN 50 MG CAPSULE PO SCH ×3 (06:15→22:32)
[2017-06-07] MEDS: INSULIN SLIDING SCALE (NOVOLOG) 1 VIAL SQ SCH ×3 (06:16→16:38)
[2017-06-07 06:37] LABS: BASOPHIL 0.1 % (0-2.0); EOSINOPHIL 1.6 % (0-4.5); MCH 31.8 pg (25.7-33.7); MCHC 33.1 g/dl (32.0-35.9); MEAN PLT VOLUME 8.7 fl (7.5-11.1); PLATELET COUNT 198 K/MM3 (134-434); RDW 16.6 % (11.9-15.9); WHITE BLOOD COUNT 7.4 K/mm3 (4.0-10.0)
[2017-06-07 06:48] LABS: ALBUMIN 1.8 g/dl (3.4-5.0); ANION GAP 8 (8-16); CO2 22 mmol/L (21-32); CREATININE 0.8 mg/dL (0.7-1.3); GLUCOSE,RANDOM 187 mg/dL (74-106); SGOT/AST 55 U/L (15-37); SGPT/ALT 65 U/L (12-78)
[2017-06-07 06:49] LABS: ALK PHOS 308 U/L (45-117); BILIRUBIN,TOTAL 0.8 mg/dL (0.2-1.0)
[2017-06-07 07:00] LABS: CALCIUM 6.7 mg/dL (8.5-10.1); PHOSPHOROUS 1.1 mg/dL (2.5-4.9)
--- NOTE | 2017-06-07 07:43 | PN ---
Physical Exam: SUBJECTIVE: Patient seen and examined by me this AM - Patient doing well. Complaining of mild pleuritic pain on deep inspiration. - No further episodes of hypotension after IVFs - Plan to transfer to telemetry today. - Hypophos, hypocalcemic. Repleted. - One BM yesterday after starting miralax. - Guaiac neg. PSA pending. OBJECTIVE: Intake & Output 06/04/17 06/05/17 06/06/17 06/07/17 23:59 23:59 23:59 23:59 Intake Total 1850 3622 2636 1250 Output Total 1425 1600 850 675 Balance 425 2021 1786 575 Weight 83.325 kg 84.731 kg 92.3 kg Vital Signs Period Temp Pulse Resp BP Sys/Kim Pulse Ox Last 24 Hr 97.6 F-98.1 F 70-82 16-21 91-137/44-65 96-100 GENERAL: The patient is awake, alert, and fully oriented, in NAD HEAD: Normal with no signs of trauma. EYES: PERRL, extraocular movements intact, sclera anicteric, conjunctiva clear. No ptosis. ENT: Oropharynx clear without exudates, moist mucous membranes. NECK: Trachea midline, full range of motion, supple. R IJ cordis in place, with no erythema or drainage. LUNGS: Breath sounds equal, clear to auscultation bilaterally, no wheezes, no crackles, labored breathing w/ minimal exertion HEART: Regular rate and rhythm, S1, S2 without murmur, rub or gallop. ABDOMEN: Significantly distended abdomen with mild RUQ pain on palpation. Negative campos's sign. Hypoactive bowel sounds, no guarding, no rebound, no hepatosplenomegaly, no masses. EXTREMITIES: 2+ pulses, warm, well-perfused, no edema. Negative zack's sign. BL mild resolving stasis dermatitis in LEs. NEUROLOGICAL: Cranial nerves II through XII grossly intact. Normal speech, with occasional aphasia. SKIN: Warm, dry, normal turgor. Ecchymoses on BL UE. Laboratory Results - last 24 hr CBC, BMP 06/07/17 05:20 06/07/17 05:20 06/06/17 06/06/17 06/06/17 05:20 05:20 05:20 WBC RBC Hgb Hct MCV MCH MCHC RDW Plt Count MPV Neutrophils % Lymphocytes % Monocytes % Eosinophils % Basophils % INR 1.30 H D PTT (Actin FS) 33.7 D Sodium 140 Potassium 4.3 Chloride 109 H Carbon Dioxide 20 L Anion Gap 11 BUN 18 D Creatinine 0.9 D Creat Clearance w eGFR > 60 POC Glucometer Random Glucose 140 H Calcium 6.4 L* Phosphorus 1.4 L D Magnesium 1.9 Total Bilirubin 0.9 AST 111 H D ALT 100 H D Alkaline Phosphatase 249 H D Total Protein 5.1 L Albumin 2.0 L Stool Occult Blood 06/06/17 06/06/17 06/06/17 11:20 14:40 16:21 WBC RBC Hgb Hct MCV MCH MCHC RDW Plt Count MPV Neutrophils % Lymphocytes % Monocytes % Eosinophils % Basophils % INR PTT (Actin FS) Sodium Potassium Chloride Carbon Dioxide Anion Gap BUN Creatinine Creat Clearance w eGFR POC Glucometer 211.53307 [phone] Random Glucose Calcium Phosphorus Magnesium Total Bilirubin AST ALT Alkaline Phosphatase Total Protein Albumin Stool Occult Blood Negative 06/06/17 06/07/17 06/07/17 22:39 05:20 05:20 WBC 7.4 RBC 2.43 L Hgb 7.7 L Hct 23.3 L MCV 96.0 MCH 31.8 MCHC 33.1 RDW 16.6 H Plt Count 198 D MPV 8.7 Neutrophils % 82.0 Lymphocytes % 5.3 L D Monocytes % 11.0 H Eosinophils % 1.6 Basophils % 0.1 INR PTT (Actin FS) Sodium 140 Potassium 4.7 Chloride 110 H Carbon Dioxide 22 Anion Gap 8 BUN 15 Creatinine 0.8 Creat Clearance w eGFR > 60 POC Glucometer [phone] Random Glucose 187 H D Calcium 6.7 L* Phosphorus 1.1 L* D Magnesium Total Bilirubin 0.8 AST 55 H D ALT 65 D Alkaline Phosphatase 308 H D Total Protein 5.0 L Albumin 1.8 L Stool Occult Blood Active Medications Generic Name Dose Route Start Last Admin Trade Name Freq PRN Reason Stop Dose Admin Dipyridamole/Aspirin 1 combo 06/03/17 22:00 06/06/17 22:30 Aggrenox - PO 1 combo BID MANNY Administration Enoxaparin Sodium 80 mg 06/06/17 22:00 06/06/17 21:33 Lovenox - SQ 80 mg BID MANNY Administration IV Flush 4 ml 06/05/17 10:15 Triple Lumen Flush IVPUSH PRN PRN Protocol IV Flush 4 ml 06/05/17 17:18 Triple Lumen Flush IVPUSH PRN PRN Famotidine/Sodium Chloride 50 mls @ 100 mls/hr 06/03/17 22:00 06/06/17 21:33 Pepcid 20 Mg Premixed Ivpb - IVPB 100 mls/hr BID MANNY Administration Sodium Chloride 1,000 mls @ 100 mls/hr 06/04/17 14:00 06/06/17 14:00 Normal Saline - IV Not Given ASDIR MANNY Insulin Aspart 1 vial 06/03/17 16:30 06/07/17 06:16 Novolog Vial Sliding Scale - SQ 2 units ACHS MANNY Administration Protocol Morphine Sulfate 30 mg 06/03/17 22:00 06/06/17 21:33 Ms Contin - PO 30 mg BID MANNY Administration Polyethylene Glycol 17 gm 06/06/17 12:45 06/06/17 12:44 Miralax (For Daily Use) - PO 17 grams DAILY MANNY Administration Pregabalin 100 mg 06/03/17 14:00 06/07/17 06:15 Lyrica - PO 100 mg TID MANNY Administration Venlafaxine HCl 75 mg 06/04/17 10:00 06/06/17 11:40 Effexor Xr - PO 75 mg DAILY MANNY Administration Imaging: US Renal and urinary bladder ultrasound 06/03/17: The right kidney measures 10.4 cm in sagittal with a simple cyst in its lower pole measuring 1.1 cm Left kidney measures 9.5 cm in sagittal length with a simple cyst in its lower pole measuring 1.1 cm. There is no evidence of hydronephrosis or renal stones, bilaterally Visualized portion of the liver appears unremarkable. An unclamped Gimenez catheter is present in an empty urinary bladder and hence it could not be evaluated. Prostate gland was not visualized. IMPRESSION: Small simple cyst in the right and left kidney. Both kidneys appear unremarkable. Empty urinary bladder. Gimenez catheter was not clamped. Reported By: Tray Mead MD 06/03/17 9410 Bilateral leg Doppler venous ultrasound 06/03/17: Grayscale, pulsed Doppler and color Doppler interrogation of both lower extremities deep venous system was performed. There is no evidence of deep venous thromboses in the right lower extremity. In the left lower extremity, there is incomplete compression of the popliteal vein consistent with thrombosis. The left common femoral vein, superficial femoral and popliteal vein are patent without evidence of thrombosis. Visualized portion of the greater saphenous and deep femoral vein are patent without evidence of thrombosis. No Cherry's cyst is identified in the popliteal fossa, bilaterally. IMPRESSION: Findings consistent with deep venous thromboses in the left lower extremity involving the popliteal vein. Reported By: Tray Mead MD 06/03/17 1508 EKst degree AV block. LAD. Left anterior fasicular block. No evidence of STEMI or RV strain pattern. CXR (06/03) - No evidence of PNA, pneumothorax or pleural effusion. Mild cardiomegaly. CTA (06/04) - Per my read, bilateral saddle embolus in R and L PA. Flattening of interventricular septum and RV enlargement, indicative of RV strain. CXR (06/05) - Sidon ramona in place. No pneumo. Minimal left basilar atelectasis. ECHO (06/06) - Normal LV size and function. Moderate TR. Mild RV dilation with pressures of 30-40. ASSESSMENT/PLAN: 87 yo man with pmh of metastatic prostate Ca and HTN, now with J CARLOS, L popliteal DVT and CTA-confirmed saddle embolus in setting of two days of acute SOB following plane flight back from [place] on 05/30. Pt now post-tPA infusion and IVC filter placement, continuing to do well with no further SOB or dyspnea. Endorses mild pleuritic CP on deep inspiration, likely irritation from micro emboli from dissolving clot. No further episodes of hypotension and no evidence of post-contrast J CARLOS. Pt denies any further abdominal pain today w/ downtrending AST/ALT, however Alk Phos continues to rise. May require ERCP/MRCP for further evaluation. Transfer to med-surg today. #Neuro Monitor MS MS contin 30mg BID for hip pain/metastatic dz Lyrica 100mg TID for neuropathy #Cardiac ECHO 06/06 w/ mild RV dilatation and moderately increased RV pressures and moderate TR Trend BNP Cardiology recommendations appreciated f/u Echo in 2-3 months as outpt #Pulm NC 2L O2 tx. Titrate to >94% O2 sat #Heme Trend H/H. Transfuse as necessary LMWH 80mg BID. Heparin gtt d/c'ed yesterday. Will require lifelong AC w/ LMWH Continue home Aggrenox Pull R IJ cordis today #Renal Hypo-Phos repleted in AM. IVF NS 100ml/hr Continue to trend BUN, Cr and monitor for post-contrast J CARLOS Plan to d/c gimenez today pending stable MAPs #GI Downtrending AST, ALT. Suspicion for possible shock liver. Monitor BMs for any hematochezia, melena Abdominal U/S (06/05) w/ thickened g/b. No evidence of cholecystitis; pt afebrile , no WBC elevation Alk Phos uptrending (249 -> 308) - f/u GGT results Miralax 17 gm PO for constipation Continue to trend LFTs Famotidine 20mg IVPB BID for GERD #Endo Insulin ss ACHS Hold home medications f/u Hemoglobin A1c #Psych Venlafaxine 75 mg PO #FEN Fluids: NS 100ml/hr Electrolytes: Routine lytes. Monitor for hypo-phos Nutrition: Diabetic diet Dispo: Transfer to med-surg for further management Inocencio Cortes, PGY1 Plan discussed with attending, Dr. Shanks Visit type - Emergency Visit Emergency Visit: No - New Patient This patient is new to me today: No - Critical Care Critical Care patient: Yes Total Critical Care Time (in minutes): 35 Critical Care Statement: The care of this patient involved high complexity decision making to prevent further life threatening deterioration of the patient 's condition and/or to evaluate & treat vital organ system(s) failure or risk of failure.
[2017-06-07] MEDS ORDERED: NAPH,MB-DB/K PH,MBDB POWDER PACKET PO SCH (10:00)
[2017-06-07] MEDS ORDERED: PT OWN MED DRAWER 7, Y5N ONE (10:15)
[2017-06-07] MEDS: FAMOTIDINE 20 MG/50 ML IVPB 50 ML IVPB SCH ×2 (10:21→22:35)
[2017-06-07] MEDS: ENOXAPARIN NA (PORCINE) 80 MG/0.8 ML DISP.SYRIN SQ SCH ×2 (10:21→22:33)
[2017-06-07] MEDS: NAPH,MB-DB/K PH,MBDB POWDER PACKET PO SCH ×2 (10:22→22:33)
[2017-06-07] MEDS: morphine SO4 SUSTAINED ACTING 30 MG TABLET.SA PO SCH ×2 (10:22→22:29)
[2017-06-07] MEDS: ASPIRIN/DIPYRIDAMOLE 25 MG/200 MG CAPSULE (FP) PO SCH ×2 (10:23→22:33)
[2017-06-07] MEDS: POLYETHYLENE GLYCOL 3350 119 GM BTL PO SCH (10:34)
--- NOTE | 2017-06-07 10:50 | PN ---
Teaching Attending Note Name of Resident: Inocencio Cortes ATTENDING PHYSICIAN STATEMENT I saw and evaluated the patient. I reviewed the resident's note and discussed the case with the resident. I agree with the resident's findings and plan as documented. SUBJECTIVE: Pt seen and examined in the ICU. Some dyspnea with exertion and chest pain with deep inspiration today. OBJECTIVE: Last Vital Signs Temp Pulse Resp BP Pulse Ox 97.6 F 79 19 128/62 100 06/07/17 02:00 06/07/17 06:00 06/07/17 06:00 06/07/17 06:00 06/06/17 21:00 Intake & Output 06/04/17 06/05/17 06/06/17 06/07/17 23:59 23:59 23:59 23:59 Intake Total 1850 3622 2636 1250 Output Total 1425 1600 850 675 Balance 425 2022 1786 575 Weight 183 lb 11.2 oz 186 lb 12.8 oz 203 lb 7.787 oz Gen: NAD at rest Heart: RRR Lung: decreased breath sounds at the bases Abd: soft, nontender Ext: trace edema CBC, BMP 06/07/17 05:20 06/07/17 05:20 Active Medications Dipyridamole/Aspirin (Aggrenox -) 1 combo PO BID [facility] Last Admin: 06/07/17 10:23 Dose: 1 combo Enoxaparin Sodium (Lovenox -) 80 mg SQ BID [facility] Last Admin: 06/07/17 10:21 Dose: 80 mg IV Flush (Triple Lumen Flush) 4 ml IVPUSH PRN PRN PRN Reason: Protocol IV Flush (Triple Lumen Flush) 4 ml IVPUSH PRN PRN Famotidine/Sodium Chloride (Pepcid 20 Mg Premixed Ivpb -) 50 mls @ 100 mls/hr IVPB BID [facility] Last Admin: 06/07/17 10:21 Dose: 100 mls/hr Sodium Chloride (Normal Saline -) 1,000 mls @ 100 mls/hr IV ASDIR [facility] Last Admin: 06/06/17 14:00 Dose: Not Given Sodium Phosphate 30 mm/ (Dextrose) 260 mls @ 62.5 mls/hr IVPB ONCE ONE Stop: 06/07/17 15:39 Insulin Aspart (Novolog Vial Sliding Scale -) 1 vial SQ ACHS [facility] PRN Reason: Protocol Last Admin: 06/07/17 06:16 Dose: 2 units Morphine Sulfate (Ms Contin -) 30 mg PO BID [facility] Last Admin: 06/07/17 10:22 Dose: 30 mg Polyethylene Glycol (Miralax (For Daily Use) -) 17 gm PO DAILY [facility] Last Admin: 06/07/17 10:34 Dose: 17 grams Potassium Phos/Sodium Phos (Phos-Nak Packet -) 1 packet PO BID [facility] Last Admin: 06/07/17 10:22 Dose: 1 packet Pregabalin (Lyrica -) 100 mg PO TID [facility] Last Admin: 06/07/17 06:15 Dose: 100 mg Venlafaxine HCl (Effexor Xr -) 75 mg PO DAILY [facility] Last Admin: 06/06/17 11:40 Dose: 75 mg ASSESSMENT AND PLAN: Submassive Pulmonary Embolism with RV dysfunction s/p catheter directed thrombectomy/thrombolysis LLE DVT s/p IVC filter +Troponins likely from above Lactic Acidosis resolved Acute Kidney Injury Metastatic Prostate Ca h/o PE DM - continue anticoagulation with LMWH - will need life long anticoagulation - monitor H/H - monitor urine output, creatinine - O2 to keep Spo2 >90% - replete lytes - can monitor on floor
[2017-06-07] MEDS ORDERED: SODIUM PHOSPHATE - 30 MM in DEXTROSE 5%-WATER - 250 ML IVPB ONE (11:30)
--- NOTE | 2017-06-07 11:36 | PN ---
Progress Note, Physician Chief Complaint: Events noted Remains in ICU, post catheter directed thrombectomy and infusion of TPA and IVC filter Generalized weakness, otherwise better History of Present Illness: Patient was seen and examined. Awake and alert. Chart was reviewed Denies chest pain. Not in distress - Current Medication List Current Medications: Active Medications Dipyridamole/Aspirin (Aggrenox -) 1 combo PO BID [facility] Last Admin: 06/07/17 10:23 Dose: 1 combo Enoxaparin Sodium (Lovenox -) 80 mg SQ BID [facility] Last Admin: 06/07/17 10:21 Dose: 80 mg IV Flush (Triple Lumen Flush) 4 ml IVPUSH PRN PRN PRN Reason: Protocol IV Flush (Triple Lumen Flush) 4 ml IVPUSH PRN PRN Famotidine/Sodium Chloride (Pepcid 20 Mg Premixed Ivpb -) 50 mls @ 100 mls/hr IVPB BID [facility] Last Admin: 06/07/17 10:21 Dose: 100 mls/hr Sodium Chloride (Normal Saline -) 1,000 mls @ 100 mls/hr IV ASDIR [facility] Last Admin: 06/06/17 14:00 Dose: Not Given Sodium Phosphate 30 mm/ (Dextrose) 260 mls @ 62.5 mls/hr IVPB ONCE ONE Stop: 06/07/17 15:39 Insulin Aspart (Novolog Vial Sliding Scale -) 1 vial SQ ACHS [facility] PRN Reason: Protocol Last Admin: 06/07/17 06:16 Dose: 2 units Morphine Sulfate (Ms Contin -) 30 mg PO BID [facility] Last Admin: 06/07/17 10:22 Dose: 30 mg Polyethylene Glycol (Miralax (For Daily Use) -) 17 gm PO DAILY [facility] Last Admin: 06/07/17 10:34 Dose: 17 grams Potassium Phos/Sodium Phos (Phos-Nak Packet -) 1 packet PO BID [facility] Last Admin: 06/07/17 10:22 Dose: 1 packet Pregabalin (Lyrica -) 100 mg PO TID [facility] Last Admin: 06/07/17 06:15 Dose: 100 mg Venlafaxine HCl (Effexor Xr -) 75 mg PO DAILY [facility] Last Admin: 06/06/17 11:40 Dose: 75 mg - Objective Vital Signs: Vital Signs Temperature 97.6 F 06/07/17 02:00 Pulse Rate 79 06/07/17 06:00 Respiratory Rate 19 06/07/17 06:00 Blood Pressure 128/62 06/07/17 06:00 O2 Sat by Pulse Oximetry (%) 100 06/06/17 21:00 Neck: Yes: Supple Cardiovascular: Yes: Regular Rate and Rhythm, S1, S2 Respiratory: Yes: Diminished Gastrointestinal: Yes: Normal Bowel Sounds, Soft. No: Tenderness Edema: No Additional Findings/Remarks: - Review of Systems Constitutional: denies: Chills, Fever Cardiovascular: reports: Shortness of Breath - improved denies: Chest Pain, Palpitations Respiratory: reports: SOB - improved. denies: Orthopnea, PND Gastrointestinal: denies: Abdominal Pain, Constipation, Diarrhea, Melena, Nausea , Rectal Bleeding, Vomiting Neurological: reports: Weakness. denies: Dizziness, Headache, Seizure, Syncope Labs: CBC, BMP 06/07/17 05:20 06/07/17 05:20 INR, PTT INR 1.30 (0.82-1.09) H D 06/06/17 05:20 Problem List - Problems (1) J CARLOS (acute kidney injury) Code(s): N17.9 - ACUTE KIDNEY FAILURE, UNSPECIFIED (2) Diabetes Code(s): E11.9 - TYPE 2 DIABETES MELLITUS WITHOUT COMPLICATIONS Qualifiers: Diabetes mellitus type: type 2 Diabetes mellitus complication status: without complication Diabetes mellitus alf insulin use: without alf use Qualified Code(s): E11.9 - Type 2 diabetes mellitus without complications (3) Hypotension Code(s): I95.9 - HYPOTENSION, UNSPECIFIED Qualifiers: Hypotension type: unspecified hypotension type Qualified Code(s): I95.9 - Hypotension, unspecified (4) Lactic acid acidosis Code(s): E87.2 - ACIDOSIS (5) Weakness Code(s): R53.1 - WEAKNESS (6) Pulmonary embolism Code(s): I26.99 - OTHER PULMONARY EMBOLISM WITHOUT ACUTE COR PULMONALE Qualifiers: Pulmonary embolism type: saddle Chronicity: acute Acute cor pulmonale presence: with acute cor pulmonale Qualified Code(s): I26.02 - Saddle embolus of pulmonary artery with acute cor pulmonale (7) DVT (deep venous thrombosis) Code(s): I82.409 - ACUTE EMBOLISM AND THOMBOS UNSP DEEP VN UNSP LOWER EXTREMITY Qualifiers: DVT location: lower extremity Affected thrombotic vein of extremity: popliteal Chronicity: acute Laterality: left Qualified Code(s): I82.432 - Acute embolism and thrombosis of left popliteal vein (8) Dyspnea Code(s): R06.00 - DYSPNEA, UNSPECIFIED Qualifiers: Dyspnea type: dyspnea on exertion Qualified Code(s): R06.09 - Other forms of dyspnea (9) Prostate CA Code(s): C61 - MALIGNANT NEOPLASM OF PROSTATE Assessment/Plan 1. Acute pulmonary thromboembolism with RV strain and hypoxia s/p catheter directed mechanical thrombectomy and TPA 2. DVT - left popliteal S/P IVC filter 3. History of metastatic prostate CA 4. 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 J CARLOS with elevation of creatinine and hyperkalemia 6. Anemia 7. Mitral valve regurgitation PLAN: 1. Currently on Lovenox. Patient will need life long anticoagulation 2. Monitor H/H and transfuse PRBC as needed 3. Echocardiography can be repeated after above intervention and to follow degree of TR and MR - result noted 4. Follow renal function and electrolytes 5. Transfer to telemetry Guarded. Further plans are to follow Vin Guillen MD
[2017-06-07] MEDS: VENLAFAXINE HCL 75 MG E.R. CAPSULES (FP) PO SCH (12:03)
[2017-06-07 14:02] LABS: BASOPHIL 0.3 % (0-2.0); EOSINOPHIL 1.3 % (0-4.5); MCHC 32.5 g/dl (32.0-35.9); MEAN CELL VOLUME 95.4 fl (80-96); MEAN PLT VOLUME 8.3 fl (7.5-11.1); NEUTROPHILS 81.8 % (42.8-82.8); PLATELET COUNT 202 K/MM3 (134-434); RDW 17.1 % (11.9-15.9)
[2017-06-07] MEDS: SODIUM CHLORIDE 1,000 ML IV SCH (14:10)
--- NOTE | 2017-06-07 14:44 | PN ---
Progress Note (short form) - Note Progress Note: seen in icu multiple medical problems r/o pe inder dm prostate ca/bone mets Current Medications Dipyridamole/Aspirin (Aggrenox -) 1 combo PO BID [facility] Last Admin: 06/07/17 10:23 Dose: 1 combo Enoxaparin Sodium (Lovenox -) 80 mg SQ BID [facility] Last Admin: 06/07/17 10:21 Dose: 80 mg IV Flush (Triple Lumen Flush) 4 ml IVPUSH PRN PRN PRN Reason: Protocol IV Flush (Triple Lumen Flush) 4 ml IVPUSH PRN PRN Famotidine/Sodium Chloride (Pepcid 20 Mg Premixed Ivpb -) 50 mls @ 100 mls/hr IVPB BID [facility] Last Admin: 06/07/17 10:21 Dose: 100 mls/hr Sodium Chloride (Normal Saline -) 1,000 mls @ 100 mls/hr IV ASDIR [facility] Last Admin: 06/07/17 14:10 Dose: 100 mls/hr Sodium Phosphate 30 mm/ (Dextrose) 260 mls @ 62.5 mls/hr IVPB ONCE ONE Stop: 06/07/17 15:39 Last Admin: 06/07/17 12:03 Dose: 62.5 mls/hr Insulin Aspart (Novolog Vial Sliding Scale -) 1 vial SQ ACHS [facility] PRN Reason: Protocol Last Admin: 06/07/17 12:03 Dose: Not Given Morphine Sulfate (Ms Contin -) 30 mg PO BID [facility] Last Admin: 06/07/17 10:22 Dose: 30 mg Polyethylene Glycol (Miralax (For Daily Use) -) 17 gm PO DAILY [facility] Last Admin: 06/07/17 10:34 Dose: 17 grams Potassium Phos/Sodium Phos (Phos-Nak Packet -) 1 packet PO BID [facility] Last Admin: 06/07/17 10:22 Dose: 1 packet Pregabalin (Lyrica -) 100 mg PO TID [facility] Last Admin: 06/07/17 14:06 Dose: 100 mg Venlafaxine HCl (Effexor Xr -) 75 mg PO DAILY [facility] Last Admin: 06/07/17 12:03 Dose: 75 mg Last Vital Signs Temp Pulse Resp BP Pulse Ox 97.8 F 79 19 132/60 100 06/07/17 08:00 06/07/17 10:00 06/07/17 10:00 06/07/17 10:00 06/06/17 21:00 alert, feels weak poor appetite, coughing after swallowing jello Lungs rales posterior bases Heart reg Abd soft Ext no edema CBC, BMP 06/07/17 13:54 06/07/17 05:20 IMP- multiple electrolyte disorders being replaced with na po4 hemodynamically stable anemia hypocalcemia hypophosphatemia prerenal azotemia Plan- Primary care team to address low h/h
--- NOTE | 2017-06-07 15:24 | PN ---
Physical Exam: SUBJECTIVE: Patient seen and examined. he states he feels weak, slightly short of breath with dyspnea with exertion and chest pain with deep inspiration today. OBJECTIVE: a.m. labs shows hmg/hct low, repeat still low at 7.8/23.9, + dyspnea with minimal exertion Will give 1 unit of prbc for symptomatic anemia Will repeat CBC after blood is complete Patient was recently treated for bronchitis as outpatient, will give trial of scheduled nebs q4 and monitor for improvement. Vital Signs Period Temp Pulse Resp BP Sys/Kim Pulse Ox Last 24 Hr 97.6 F-97.8 F 70-86 17-22 96-137/50-65 100 GENERAL: The patient is awake, alert, and fully oriented, mild respiratory distress HEAD: Normal with no signs of trauma. EYES: PERRL, extraocular movements intact, sclera anicteric, conjunctiva clear. No ptosis. ENT: Oropharynx clear without exudates, moist mucous membranes. NECK: Trachea midline, full range of motion, supple. R IJ cordis in place, with no erythema or drainage. LUNGS: Breath sounds equal, diminished but clear to auscultation bilaterally, no wheezes, no crackles, dyspnea with minimal exertion HEART: Regular rate and rhythm, S1, S2 without murmur, rub or gallop. ABDOMEN: Distended abdomen, soft abdomen, tolerating diet Hypoactive bowel sounds, no guarding, no rebound, no hepatosplenomegaly, no masses. EXTREMITIES: 2+ pulses, warm, well-perfused, trace edema bilaterally NEUROLOGICAL: Normal speech SKIN: Warm, dry, normal turgor Laboratory Results - last 24 hr 06/06/17 06/06/17 06/06/17 14:40 16:21 22:39 WBC RBC Hgb Hct MCV MCH MCHC RDW Plt Count MPV Neutrophils % Lymphocytes % Monocytes % Eosinophils % Basophils % Sodium Potassium Chloride Carbon Dioxide Anion Gap BUN Creatinine Creat Clearance w eGFR POC Glucometer [phone] Random Glucose Calcium Phosphorus Total Bilirubin AST ALT Alkaline Phosphatase Total Protein Albumin Stool Occult Blood Negative 06/07/17 06/07/17 06/07/17 05:20 05:20 06:06 WBC 7.4 RBC 2.43 L Hgb 7.7 L Hct 23.3 L MCV 96.0 MCH 31.8 MCHC 33.1 RDW 16.6 H Plt Count 198 D MPV 8.7 Neutrophils % 82.0 Lymphocytes % 5.3 L D Monocytes % 11.0 H Eosinophils % 1.6 Basophils % 0.1 Sodium 140 Potassium 4.7 Chloride 110 H Carbon Dioxide 22 Anion Gap 8 BUN 15 Creatinine 0.8 Creat Clearance w eGFR > 60 POC Glucometer [phone] Random Glucose 187 H D Calcium 6.7 L* Phosphorus 1.1 L* D Total Bilirubin 0.8 AST 55 H D ALT 65 D Alkaline Phosphatase 308 H D Total Protein 5.0 L Albumin 1.8 L Stool Occult Blood 06/07/17 13:54 WBC 8.0 RBC 2.50 L Hgb 7.8 L Hct 23.9 L MCV 95.4 MCH 31.0 MCHC 32.5 RDW 17.1 H Plt Count 202 MPV 8.3 Neutrophils % 81.8 Lymphocytes % 6.0 L Monocytes % 10.6 H Eosinophils % 1.3 Basophils % 0.3 Sodium Potassium Chloride Carbon Dioxide Anion Gap BUN Creatinine Creat Clearance w eGFR POC Glucometer Random Glucose Calcium Phosphorus Total Bilirubin AST ALT Alkaline Phosphatase Total Protein Albumin Stool Occult Blood Active Medications Generic Name Dose Route Start Last Admin Trade Name Freq PRN Reason Stop Dose Admin Dipyridamole/Aspirin 1 combo 06/03/17 22:00 06/07/17 10:23 Aggrenox - PO 1 combo BID [facility] Administration Enoxaparin Sodium 80 mg 06/06/17 22:00 06/07/17 10:21 Lovenox - SQ 80 mg BID [facility] Administration IV Flush 4 ml 06/05/17 10:15 Triple Lumen Flush IVPUSH PRN PRN Protocol IV Flush 4 ml 06/05/17 17:18 Triple Lumen Flush IVPUSH PRN PRN Famotidine/Sodium Chloride 50 mls @ 100 mls/hr 06/03/17 22:00 06/07/17 10:21 Pepcid 20 Mg Premixed Ivpb - IVPB 100 mls/hr BID [facility] Administration Sodium Chloride 1,000 mls @ 100 mls/hr 06/04/17 14:00 06/07/17 14:10 Normal Saline - IV 100 mls/hr ASDIR [facility] Administration Sodium Phosphate 30 mm/ 260 mls @ 62.5 mls/hr 06/07/17 11:30 06/07/17 12:03 Dextrose IVPB 06/07/17 15:39 62.5 mls/hr ONCE ONE Administration Insulin Aspart 1 vial 06/03/17 16:30 06/07/17 12:03 Novolog Vial Sliding Scale - SQ Not Given ACHS [facility] Protocol Morphine Sulfate 30 mg 06/03/17 22:00 06/07/17 10:22 Ms Contin - PO 30 mg BID [facility] Administration Polyethylene Glycol 17 gm 06/06/17 12:45 06/07/17 10:34 Miralax (For Daily Use) - PO 17 grams DAILY [facility] Administration Potassium Phos/Sodium Phos 1 packet 06/07/17 10:00 06/07/17 10:22 Phos-Nak Packet - PO 1 packet BID [facility] Administration Pregabalin 100 mg 06/03/17 14:00 06/07/17 14:06 Lyrica - PO 100 mg TID [facility] Administration Venlafaxine HCl 75 mg 06/04/17 10:00 06/07/17 12:03 Effexor Xr - PO 75 mg DAILY [facility] Administration ASSESSMENT/PLAN: Patient is an 87 year old male with a significant past medical hisory of prostate cancer, HTN, PE, carotid artery disease (on aggrenox) GERD, COPD, NIDDM and anxiety. He presented to the ED on 06/03/2017 with shortness of breath on exertion and weakness after traveling to [place] on 05/30/2017 via airplane. He was reported to have collapsed at home but denies any head injury or trauma. He was recently treated for bronchitis as an outpatient and reports finishing full course of antibiotics. His last antibiotic dose was on 2016. He is s/p thrombectomy and thrombosis on 06/[address] Kunz. He has an IVC filter placed on 06/05/2017. Imaging: Chest CTA 06/04/2017: extensive pulmonary artery emboli with large clot burden. Abnormal bowing of the intra. septum concerning for a heart strain. 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 Vascular Study: Lower ext DVT (left popliteal dvt) Hematology: Lower ext DVT (left popliteal dvt)/Pulmonary artery emboli with large clot burden A/P: Echo reviewed Chest CTA with septal bowing and right heart strain. S/p thrombectomy and thrombolysis with IR s/p TPA Had IVC filter placed on 06/05/2017 Will need lifelong anticoagulation, on home dose of Aggrenox and Lovenox On 2 liters nasal cannula Pulmonary following Pulmonary: Shortness of breath A/P: Likely secondary to anemia Will transfuse 1 unit of prbc Schedule neb treatments q4 Supplemental oxygen Pulmonary and cardiology following Cardiology: Elevated troponins A/P: trops: peaked at 3.12 now 1.35 Repeat echocardiogram after intervention Cardiology following Hypertension - chronic A/P: was hypotensive and IVF of NS started, Will lower NS to 50cc/and d/c if BP remains stable Monitor BP Renal/: J CARLOS - resolved A/P: monitor bmp in a.m. to trend has gimenez catheter Oncology: Prostate cancer hx, bone mets disease indicated on CT A/P: will need outpatient oncology follow up when more stable On home Xgeva Endocrine: Diabetes A/P: monitor bgms F.E.N. Fluids: NS Electrolytes: hypocalcemia: corrected calcium 8.4: hypophos: given sodium phos IV x 1, on phos packets Nutrition: diabetic diet Prophylaxis: DVT: Aggrenox BID, Lovenox BID GI: Pepcid Disposition: Requires continued ICU care. Full code Visit type - Emergency Visit Emergency Visit: Yes ED Registration Date: 06/03/17 Care time: The patient presented to the Emergency Department on the above date and was hospitalized for further evaluation of their emergent condition. - New Patient This patient is new to me today: No - Critical Care Critical Care patient: Yes Total Critical Care Time (in minutes): 60 Critical Care Statement: The care of this patient involved high complexity decision making to prevent further life threatening deterioration of the patient 's condition and/or to evaluate & treat vital organ system(s) failure or risk of failure. - Discharge Referral Referred to [facility] No
[2017-06-07] MEDS ORDERED: SODIUM CHLORIDE 1,000 ML IV SCH (16:47)
[2017-06-07] MEDS: ALBUTEROL SO4 2.5/IPRATROPIUM 0.5 INH SOL 3 ML VIAL.NEB. NEB SCH ×2 (17:50→22:43)
[2017-06-07] MEDS ORDERED: PROCHLORPERAZINE INJECTION 10 MG/2 ML VIAL IVPB ONE (20:45)
[2017-06-07 23:36] LABS: EOSINOPHIL 0.4 % (0-4.5); MCH 31.5 pg (25.7-33.7); MCHC 33.6 g/dl (32.0-35.9); MEAN CELL VOLUME 93.8 fl (80-96); MEAN PLT VOLUME 8.4 fl (7.5-11.1); NEUTROPHILS 83.7 % (42.8-82.8); PLATELET COUNT 219 K/MM3 (134-434); RDW 16.7 % (11.9-15.9); WHITE BLOOD COUNT 7.9 K/mm3 (4.0-10.0)
[2017-06-08] MEDS: INSULIN SLIDING SCALE (NOVOLOG) 1 VIAL SQ SCH ×5 (01:33→21:36)
[2017-06-08] MEDS: ALBUTEROL SO4 2.5/IPRATROPIUM 0.5 INH SOL 3 ML VIAL.NEB. NEB SCH ×6 (02:30→22:55)
[2017-06-08] MEDS: PREGABALIN 50 MG CAPSULE PO SCH ×3 (06:35→21:35)
[2017-06-08 06:51] LABS: BASOPHIL 0.3 % (0-2.0); EOSINOPHIL 0.4 % (0-4.5); MCHC 33.5 g/dl (32.0-35.9); MEAN CELL VOLUME 92.5 fl (80-96); MEAN PLT VOLUME 8.4 fl (7.5-11.1); NEUTROPHILS 86.5 % (42.8-82.8); PLATELET COUNT 227 K/MM3 (134-434); RDW 16.6 % (11.9-15.9); WHITE BLOOD COUNT 8.5 K/mm3 (4.0-10.0)
[2017-06-08 07:15] LABS: ALBUMIN 1.9 g/dl (3.4-5.0); ANION GAP 11 (8-16); CO2 22 mmol/L (21-32); GLUCOSE,RANDOM 200 mg/dL (74-106); MAGNESIUM 1.5 mg/dL (1.8-2.4)
[2017-06-08 07:18] LABS: ALK PHOS 306 U/L (45-117); BILIRUBIN,TOTAL 1.6 mg/dL (0.2-1.0); CREATININE 0.7 mg/dL (0.7-1.3); SGOT/AST 32 U/L (15-37); SGPT/ALT 53 U/L (12-78); TOT PROT 5.5 g/dl (6.4-8.2)
[2017-06-08 07:19] LABS: CALCIUM 6.9 mg/dL (8.5-10.1)
--- NOTE | 2017-06-08 07:56 | PN ---
Physical Exam: SUBJECTIVE: Patient seen and examined in ICU at bedside. Family members present. Complains of full body aches and mild lower abdominal discomfort. He states pain is well-managed on current dosing of MS Contin. States swelling in his legs is new today. OBJECTIVE: Vital Signs Period Temp Pulse Resp BP Sys/Kim Pulse Ox Last 24 Hr 97.2 F-98.9 F 73-87 15-22 108-167/53-77 95 GENERAL: The patient is awake, alert, and fully oriented, in no acute distress. HEAD: Normal with no signs of trauma. LUNGS: Breath sounds equal, clear to auscultation bilaterally, no wheezes, no crackles, no accessory muscle use. HEART: Regular rate and rhythm, S1, S2 without murmur, rub or gallop. ABDOMEN: Soft, nontender, nondistended, normoactive bowel sounds, no guarding, no rebound EXTREMITIES: 2+ bilateral lower extremity edema from feet to knees, venous stasis changes, delayed cap refill >3 seconds bilateral toes NEUROLOGICAL: Cranial nerves II through XII grossly intact. Normal speech, gait not observed. Laboratory Results - last 24 hr 06/07/17 06/08/17 06/08/17 23:15 05:38 05:38 WBC 7.9 8.5 RBC 2.80 L 3.17 L Hgb 8.8 L D 9.8 L D Hct 26.3 L 29.3 L MCV 93.8 92.5 MCH 31.5 31.0 MCHC 33.6 33.5 RDW 16.7 H 16.6 H Plt Count 219 227 MPV 8.4 8.4 Neutrophils % 83.7 H 86.5 H Lymphocytes % 5.6 L 3.8 L D Monocytes % 9.3 9.0 Eosinophils % 0.4 0.4 Basophils % 1.0 D 0.3 Sodium 140 Potassium 4.3 Chloride 107 Carbon Dioxide 22 Anion Gap 11 BUN 12 Creatinine 0.7 Creat Clearance w eGFR > 60 POC Glucometer Random Glucose 200 H Calcium 6.9 L* Phosphorus 1.9 L D Magnesium 1.5 L D Total Bilirubin 1.6 H D GGT 205 H AST 32 D ALT 53 Alkaline Phosphatase 306 H Total Protein 5.5 L Albumin 1.9 L Active Medications Generic Name Dose Route Start Last Admin Trade Name Freq PRN Reason Stop Dose Admin Albuterol/Ipratropium 1 amp 06/07/17 18:00 06/08/17 06:42 Duoneb - NEB 1 amp Q4HPO [facility] Administration Dipyridamole/Aspirin 1 combo 06/03/17 22:00 06/07/17 22:33 Aggrenox - PO 1 combo BID [facility] Administration Enoxaparin Sodium 80 mg 06/06/17 22:00 06/07/17 22:33 Lovenox - SQ 80 mg BID [facility] Administration IV Flush 4 ml 06/05/17 10:15 Triple Lumen Flush IVPUSH PRN PRN Protocol IV Flush 4 ml 06/05/17 17:18 Triple Lumen Flush IVPUSH PRN PRN Insulin Aspart 1 vial 06/03/17 16:30 06/08/17 06:35 Novolog Vial Sliding Scale - SQ 6 units ACHS [facility] Administration Protocol Morphine Sulfate 30 mg 06/03/17 22:00 06/07/17 22:29 Ms Contin - PO 30 mg BID [facility] Administration Polyethylene Glycol 17 gm 06/06/17 12:45 06/07/17 10:34 Miralax (For Daily Use) - PO 17 grams DAILY [facility] Administration Potassium Phos/Sodium Phos 1 packet 06/07/17 10:00 06/07/17 22:33 Phos-Nak Packet - PO 1 packet BID [facility] Administration Pregabalin 100 mg 06/03/17 14:00 06/08/17 06:35 Lyrica - PO 100 mg TID [facility] Administration Venlafaxine HCl 75 mg 06/04/17 10:00 06/07/17 12:03 Effexor Xr - PO 75 mg DAILY [facility] Administration ASSESSMENT & PLAN 87 year-old male with a significant PMH of HTN, previous PE, CAD, prostate cancer, COPD, NIDDM, GERD, and anxiety. Admitted for extensive bilateral PE with right heart strain and left LE DVT. Now s/p IVC filter, thombolysis and thrombectomy. Left lower extremity DVT --s/p IVC filter on 06/05 --on full dose lovenox Large volume thrombus bilateral pulmonary arteries Severe right ventricular systolic failure --initial echo on 06/04: intraventricular septum flat with paradoxical motion ; RV severely dilated; RV systolic function severely reduced; RA severely dilated; moderate MR; severe TR; moderate pHTN; mid AI; aortic root calcified and dilated --underwent TPA and thrombectomy 06/04 --post-thrombectomy echo 06/06 improved: LV normal; RV moderately dilated, RV function moderately reduced; mild TR; pHTN --continue full dose lovenox Bilateral lower extremity edema --d/c IV fluids --Lasix IV 40mg x 1 Demand ischemia/elevated troponin --troponin peak 3.12, downtrending --likely from PE Coronary artery disease --continue aggrenox Anemia --transfused 1U PRBC on 06/07, Hgb 8.8-->9.8 Hypertension --on no meds J CARLOS --resolved Metastatic prostate cancer --being treated as outpatient with denosumab --MsContin BID for pain management NIDDM --Novolog sliding scale Hypomagnesemia --replete Hypophosphatemia --continue Kphos F/E/N Fluids: PO intake adequate Electrolytes: replete as indicated Nutrition: diabetic diet DVT prophylaxis: full dose lovenox, oob, ambulation PT evaluation Daily PT Dispo: continues to require inpatient care. Full Code. Visit type - Emergency Visit Emergency Visit: Yes ED Registration Date: 06/03/17 Care time: The patient presented to the Emergency Department on the above date and was hospitalized for further evaluation of their emergent condition. - New Patient This patient is new to me today: Yes Date on this admission: 06/08/17 - Critical Care Critical Care patient: Yes Total Critical Care Time (in minutes): 40 Critical Care Statement: The care of this patient involved high complexity decision making to prevent further life threatening deterioration of the patient 's condition and/or to evaluate & treat vital organ system(s) failure or risk of failure.
[2017-06-08] MEDS ORDERED: MAGNESIUM SULF 50% (8.12 MEQ/2 ML-1 GM VIAL) IVPB ONE (08:52)
[2017-06-08] MEDS: ENOXAPARIN NA (PORCINE) 80 MG/0.8 ML DISP.SYRIN SQ SCH ×2 (09:15→21:33)
[2017-06-08] MEDS: morphine SO4 SUSTAINED ACTING 30 MG TABLET.SA PO SCH ×2 (09:15→21:34)
[2017-06-08] MEDS: POLYETHYLENE GLYCOL 3350 119 GM BTL PO SCH (09:16)
[2017-06-08] MEDS: NAPH,MB-DB/K PH,MBDB POWDER PACKET PO SCH ×2 (09:16→21:37)
[2017-06-08] MEDS: ASPIRIN/DIPYRIDAMOLE 25 MG/200 MG CAPSULE (FP) PO SCH ×2 (09:24→21:33)
[2017-06-08] MEDS ORDERED: MAGNESIUM OXIDE 400 MG TABLET (FP) PO ONE (09:45)
--- NOTE | 2017-06-08 09:45 | PN ---
Progress Note (short form) - Note Progress Note: PULMONARY/CCM Pt seen and examined in the ICU. Confused overnight. Still with intermittent chest pain and shortness of breath but better than yesterday. c/o nausea. Last Vital Signs Temp Pulse Resp BP Pulse Ox 98.2 F 85 20 166/77 95 06/08/17 06:00 06/08/17 06:00 06/08/17 06:00 06/08/17 06:00 06/07/17 20:40 Intake & Output 06/05/17 06/06/17 06/07/17 06/08/17 23:59 23:59 23:59 23:59 Intake Total 3622 2636 3125 500 Output Total 4126 576 0802 900 Balance 2021 1786 650 -400 Weight 186 lb 12.8 oz 203 lb 7.787 oz 200 lb 8 oz Gen: NAD at rest Heart: RRR Lung: decreased breath sounds at the bases Abd: soft, nontender Ext: no edema CBC, BMP 06/08/17 05:38 06/08/17 05:38 Active Medications Albuterol/Ipratropium (Duoneb -) 1 amp NEB Q4HPO [facility] Last Admin: 06/08/17 06:42 Dose: 1 amp Dipyridamole/Aspirin (Aggrenox -) 1 combo PO BID [facility] Last Admin: 06/08/17 09:24 Dose: 1 combo Enoxaparin Sodium (Lovenox -) 80 mg SQ BID [facility] Last Admin: 06/08/17 09:15 Dose: 80 mg IV Flush (Triple Lumen Flush) 4 ml IVPUSH PRN PRN PRN Reason: Protocol IV Flush (Triple Lumen Flush) 4 ml IVPUSH PRN PRN Insulin Aspart (Novolog Vial Sliding Scale -) 1 vial SQ ACHS [facility] PRN Reason: Protocol Last Admin: 06/08/17 06:35 Dose: 6 units Morphine Sulfate (Ms Contin -) 30 mg PO BID [facility] Last Admin: 06/08/17 09:15 Dose: 30 mg Polyethylene Glycol (Miralax (For Daily Use) -) 17 gm PO DAILY [facility] Last Admin: 06/08/17 09:16 Dose: 17 grams Potassium Phos/Sodium Phos (Phos-Nak Packet -) 1 packet PO BID [facility] Last Admin: 06/08/17 09:16 Dose: 1 packet Pregabalin (Lyrica -) 100 mg PO TID [facility] Last Admin: 06/08/17 06:35 Dose: 100 mg Venlafaxine HCl (Effexor Xr -) 75 mg PO DAILY [facility] Last Admin: 06/07/17 12:03 Dose: 75 mg A/P Submassive Pulmonary Embolism with RV dysfunction s/p catheter directed thrombectomy/thrombolysis LLE DVT s/p IVC filter +Troponins likely from above Lactic Acidosis resolved Acute Kidney Injury Metastatic Prostate Ca h/o PE DM - continue anticoagulation with LMWH - will need life long anticoagulation - monitor H/H - monitor urine output, creatinine - O2 to keep Spo2 >90% - replete lytes - can monitor on floor
[2017-06-08] MEDS ORDERED: PROCHLORPERAZINE INJECTION 10 MG/2 ML VIAL IVPB PRN (10:16)
[2017-06-08] MEDS: VENLAFAXINE HCL 75 MG E.R. CAPSULES (FP) PO SCH (11:12)
--- NOTE | 2017-06-08 11:14 | PN ---
Progress Note, Physician Chief Complaint: Events noted Remains in ICU, post catheter directed thrombectomy and infusion of TPA and IVC filter Feels better History of Present Illness: Patient was seen and examined. Awake and alert. Chart was reviewed Denies chest pain. Not in distress Irregular heart rhythm but appears to be in sinus rhythm with sinus arrhythmias - Current Medication List Current Medications: Active Medications Albuterol/Ipratropium (Duoneb -) 1 amp NEB Q4HPO [facility] Last Admin: 06/08/17 09:59 Dose: 1 amp Dipyridamole/Aspirin (Aggrenox -) 1 combo PO BID [facility] Last Admin: 06/08/17 09:24 Dose: 1 combo Enoxaparin Sodium (Lovenox -) 80 mg SQ BID [facility] Last Admin: 06/08/17 09:15 Dose: 80 mg IV Flush (Triple Lumen Flush) 4 ml IVPUSH PRN PRN PRN Reason: Protocol IV Flush (Triple Lumen Flush) 4 ml IVPUSH PRN PRN Insulin Aspart (Novolog Vial Sliding Scale -) 1 vial SQ ACHS [facility] PRN Reason: Protocol Last Admin: 06/08/17 06:35 Dose: 6 units Morphine Sulfate (Ms Contin -) 30 mg PO BID [facility] Last Admin: 06/08/17 09:15 Dose: 30 mg Polyethylene Glycol (Miralax (For Daily Use) -) 17 gm PO DAILY [facility] Last Admin: 06/08/17 09:16 Dose: 17 grams Potassium Phos/Sodium Phos (Phos-Nak Packet -) 1 packet PO BID [facility] Last Admin: 06/08/17 09:16 Dose: 1 packet Pregabalin (Lyrica -) 100 mg PO TID [facility] Last Admin: 06/08/17 06:35 Dose: 100 mg Prochlorperazine Edisylate (Compazine Injection -) 10 mg IVPB Q6H PRN PRN Reason: NAUSEA AND/OR VOMITING Venlafaxine HCl (Effexor Xr -) 75 mg PO DAILY [facility] Last Admin: 06/07/17 12:03 Dose: 75 mg - Objective Vital Signs: Vital Signs Temperature 98.2 F 06/08/17 06:00 Pulse Rate 85 06/08/17 06:00 Respiratory Rate 20 06/08/17 06:00 Blood Pressure 166/77 06/08/17 06:00 O2 Sat by Pulse Oximetry (%) 95 06/07/17 20:40 Neck: Yes: Supple Cardiovascular: Yes: Regular Rate and Rhythm, S1, S2 Respiratory: Yes: Diminished Gastrointestinal: Yes: Normal Bowel Sounds, Soft. No: Tenderness Edema: No Additional Findings/Remarks: - Review of Systems Constitutional: denies: Chills, Fever Cardiovascular: reports: Shortness of Breath - improved denies: Chest Pain, Palpitations Respiratory: reports: SOB - improved. denies: Orthopnea, PND Gastrointestinal: denies: Abdominal Pain, Constipation, Diarrhea, Melena, Nausea , Rectal Bleeding, Vomiting Neurological: reports: Weakness. denies: Dizziness, Headache, Seizure, Syncope Labs: CBC, BMP 06/08/17 05:38 06/08/17 05:38 Problem List - Problems (1) J CARLOS (acute kidney injury) Code(s): N17.9 - ACUTE KIDNEY FAILURE, UNSPECIFIED (2) Diabetes Code(s): E11.9 - TYPE 2 DIABETES MELLITUS WITHOUT COMPLICATIONS Qualifiers: Diabetes mellitus type: type 2 Diabetes mellitus complication status: without complication Diabetes mellitus prison insulin use: without breastfeeding peer counselor use Qualified Code(s): E11.9 - Type 2 diabetes mellitus without complications (3) Hypotension Code(s): I95.9 - HYPOTENSION, UNSPECIFIED Qualifiers: Hypotension type: unspecified hypotension type Qualified Code(s): I95.9 - Hypotension, unspecified (4) Lactic acid acidosis Code(s): E87.2 - ACIDOSIS (5) Weakness Code(s): R53.1 - WEAKNESS (6) Pulmonary embolism Code(s): I26.99 - OTHER PULMONARY EMBOLISM WITHOUT ACUTE COR PULMONALE Qualifiers: Pulmonary embolism type: saddle Chronicity: acute Acute cor pulmonale presence: with acute cor pulmonale Qualified Code(s): I26.02 - Saddle embolus of pulmonary artery with acute cor pulmonale (7) DVT (deep venous thrombosis) Code(s): I82.409 - ACUTE EMBOLISM AND THOMBOS UNSP DEEP VN UNSP LOWER EXTREMITY Qualifiers: DVT location: lower extremity Affected thrombotic vein of extremity: popliteal Chronicity: acute Laterality: left Qualified Code(s): I82.432 - Acute embolism and thrombosis of left popliteal vein (8) Dyspnea Code(s): R06.00 - DYSPNEA, UNSPECIFIED Qualifiers: Dyspnea type: dyspnea on exertion Qualified Code(s): R06.09 - Other forms of dyspnea (9) Prostate CA Code(s): C61 - MALIGNANT NEOPLASM OF PROSTATE Assessment/Plan 1. Acute pulmonary thromboembolism with RV strain and hypoxia s/p catheter directed mechanical thrombectomy and TPA 2. DVT - left popliteal S/P IVC filter 3. History of metastatic prostate CA 4. 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 J CARLOS with elevation of creatinine and hyperkalemia 6. Anemia 7. Mitral valve regurgitation PLAN: 1. Currently on Lovenox. Patient will need life long anticoagulation. Monitor rhythm and if AF is present, then choice of anticoagulation will need to be changed. Transfer to telemetry unit for further monitoring 2. Monitor H/H and transfuse PRBC as needed 3. Follow renal function and electrolytes Guarded. Further plans are to follow Vin Guillen MD
--- NOTE | 2017-06-08 13:32 | PN ---
Progress Note (short form) - Note Progress Note: seen in icu multiple medical problems r/o pe inder dm prostate ca/bone mets Current Medications Albuterol/Ipratropium (Duoneb -) [address] [facility] Last Admin: 06/08/17 09:59 Dose: 1 amp Dipyridamole/Aspirin (Aggrenox -) [address] [facility] Last Admin: 06/08/17 09:24 Dose: 1 combo Enoxaparin Sodium (Lovenox -) [address] [facility] Last Admin: 06/08/17 09:15 Dose: 80 mg IV Flush (Triple Lumen Flush) 4 ml IVPUSH PRN PRN PRN Reason: Protocol IV Flush (Triple Lumen Flush) 4 ml IVPUSH PRN PRN Insulin Aspart (Novolog Vial Sliding Scale -) 1 vial SQ ACHS [facility] PRN Reason: Protocol Last Admin: 06/08/17 11:15 Dose: 2 units Morphine Sulfate (Ms Contin -) [address] [facility] Last Admin: 06/08/17 09:15 Dose: 30 mg Polyethylene Glycol (Miralax (For Daily Use) -) [address] [facility] Last Admin: 06/08/17 09:16 Dose: 17 grams Potassium Phos/Sodium Phos (Phos-Nak Packet -) [address] [facility] Last Admin: 06/08/17 09:16 Dose: 1 packet Pregabalin (Lyrica -) [address] [facility] Last Admin: 06/08/17 13:17 Dose: 100 mg Prochlorperazine Edisylate (Compazine Injection -) 10 mg IVPB Q6H PRN PRN Reason: NAUSEA AND/OR VOMITING Venlafaxine HCl (Effexor Xr -) [address] [facility] Last Admin: 06/08/17 11:12 Dose: 75 mg Last Vital Signs Temp Pulse Resp BP Pulse Ox 98.2 F 86 28 H 140/70 95 06/08/17 10:00 06/08/17 12:00 06/08/17 12:00 06/08/17 12:00 06/07/17 20:40 O/E sleeping, lying flat vital signs noted, cardiac rhythm noted on monitor CBC, BMP 06/08/17 05:38 06/08/17 05:38 IMP- multiple electrolyte disorders- resolved except hypocalcemia 2/2 hypoalbuminemia corrected calcium 8.58 H/H improved afte blood transfusion Renal function now normal Plan- follow serum chemistries monitor fluid status
[2017-06-08 15:24] LABS: PHOSPHOROUS 1.9 mg/dL (2.5-4.9)
[2017-06-08] MEDS ORDERED: FUROSEMIDE 40 MG/4 ML INJECTABLE VIAL IVPUSH ONE (19:29)
[2017-06-09] MEDS: ALBUTEROL SO4 2.5/IPRATROPIUM 0.5 INH SOL 3 ML VIAL.NEB. NEB SCH ×6 (02:00→22:25)
[2017-06-09] MEDS: INSULIN SLIDING SCALE (NOVOLOG) 1 VIAL SQ SCH ×4 (06:53→22:08)
[2017-06-09] MEDS: PREGABALIN 50 MG CAPSULE PO SCH ×3 (06:53→22:08)
[2017-06-09] MEDS ORDERED: PT OWN MED DRAWER 7, Y5N ONE ×2 (08:16→09:39)
[2017-06-09 08:26] LABS: BASOPHIL 0.5 % (0-2.0); EOSINOPHIL 2.1 % (0-4.5); MCH 31.1 pg (25.7-33.7); MCHC 33.5 g/dl (32.0-35.9); NEUTROPHILS 78.2 % (42.8-82.8); PLATELET COUNT 264 K/MM3 (134-434); RDW 16.7 % (11.9-15.9); WHITE BLOOD COUNT 6.6 K/mm3 (4.0-10.0)
[2017-06-09 09:11] LABS: ALBUMIN 1.7 g/dl (3.4-5.0); ALK PHOS 243 U/L (45-117); ANION GAP 7 (8-16); BILIRUBIN,TOTAL 0.8 mg/dL (0.2-1.0); CALCIUM 7.3 mg/dL (8.5-10.1); CO2 28 mmol/L (21-32); CREATININE 0.7 mg/dL (0.7-1.3); GLUCOSE,RANDOM 191 mg/dL (74-106); MAGNESIUM 1.9 mg/dL (1.8-2.4); PHOSPHOROUS 1.3 mg/dL (2.5-4.9); SGOT/AST 31 U/L (15-37); SGPT/ALT 40 U/L (12-78); TOT PROT 5.2 g/dl (6.4-8.2)
[2017-06-09] MEDS: morphine SO4 SUSTAINED ACTING 30 MG TABLET.SA PO SCH ×2 (09:36→22:08)
[2017-06-09] MEDS: ASPIRIN/DIPYRIDAMOLE 25 MG/200 MG CAPSULE (FP) PO SCH ×2 (09:37→22:08)
[2017-06-09] MEDS: ENOXAPARIN NA (PORCINE) 80 MG/0.8 ML DISP.SYRIN SQ SCH ×2 (09:37→22:08)
[2017-06-09] MEDS: NAPH,MB-DB/K PH,MBDB POWDER PACKET PO SCH ×2 (09:40→22:08)
[2017-06-09] MEDS: POLYETHYLENE GLYCOL 3350 119 GM BTL PO SCH (09:51)
--- NOTE | 2017-06-09 10:27 | PN ---
Progress Note, Physician Chief Complaint: Events noted Transferred to telemetry, post catheter directed thrombectomy and infusion of TPA and IVC filter Feels better History of Present Illness: Patient was seen and examined. Awake and alert. Chart was reviewed Denies chest pain. Not in distress - Current Medication List Current Medications: Active Medications Albuterol/Ipratropium (Duoneb -) 1 amp NEB Q4HPO [facility] Last Admin: 06/09/17 06:46 Dose: 1 amp Dipyridamole/Aspirin (Aggrenox -) 1 combo PO BID [facility] Last Admin: 06/09/17 09:37 Dose: 1 combo Enoxaparin Sodium (Lovenox -) 80 mg SQ BID [facility] Last Admin: 06/09/17 09:37 Dose: 80 mg IV Flush (Triple Lumen Flush) 4 ml IVPUSH PRN PRN PRN Reason: Protocol IV Flush (Triple Lumen Flush) 4 ml IVPUSH PRN PRN Insulin Aspart (Novolog Vial Sliding Scale -) 1 vial SQ ACHS [facility] PRN Reason: Protocol Last Admin: 06/09/17 06:53 Dose: 4 units Morphine Sulfate (Ms Contin -) 30 mg PO BID [facility] Last Admin: 06/09/17 09:36 Dose: 30 mg Polyethylene Glycol (Miralax (For Daily Use) -) 17 gm PO DAILY [facility] Last Admin: 06/09/17 09:51 Dose: 17 grams Potassium Phos/Sodium Phos (Phos-Nak Packet -) 1 packet PO BID [facility] Last Admin: 06/09/17 09:40 Dose: 1 packet Pregabalin (Lyrica -) 100 mg PO TID [facility] Last Admin: 06/09/17 06:53 Dose: 100 mg Prochlorperazine Edisylate (Compazine Injection -) 10 mg IVPB Q6H PRN PRN Reason: NAUSEA AND/OR VOMITING Venlafaxine HCl (Effexor Xr -) 75 mg PO DAILY [facility] Last Admin: 06/08/17 11:12 Dose: 75 mg - Objective Vital Signs: Vital Signs Temperature 98.8 F 06/09/17 10:00 Pulse Rate 90 06/09/17 10:00 Respiratory Rate 18 06/09/17 10:00 Blood Pressure 124/58 06/09/17 10:00 O2 Sat by Pulse Oximetry (%) 94 L 06/08/17 22:00 Neck: Yes: Supple Cardiovascular: Yes: Regular Rate and Rhythm, S1, S2 Respiratory: Yes: Diminished Gastrointestinal: Yes: Normal Bowel Sounds, Soft. No: Tenderness Edema: No Additional Findings/Remarks: - Review of Systems Constitutional: denies: Chills, Fever Cardiovascular: reports: Shortness of Breath - improved denies: Chest Pain, Palpitations Respiratory: reports: SOB - improved. denies: Orthopnea, PND Gastrointestinal: denies: Abdominal Pain, Constipation, Diarrhea, Melena, Nausea , Rectal Bleeding, Vomiting Neurological: reports: Weakness. denies: Dizziness, Headache, Seizure, Syncope Labs: CBC, BMP 06/09/17 05:40 06/09/17 05:40 Problem List - Problems (1) J CARLOS (acute kidney injury) Code(s): N17.9 - ACUTE KIDNEY FAILURE, UNSPECIFIED (2) Diabetes Code(s): E11.9 - TYPE 2 DIABETES MELLITUS WITHOUT COMPLICATIONS Qualifiers: Diabetes mellitus type: type 2 Diabetes mellitus complication status: without complication Diabetes mellitus intermediate teacher insulin use: without intermediate teacher use Qualified Code(s): E11.9 - Type 2 diabetes mellitus without complications (3) Hypotension Code(s): I95.9 - HYPOTENSION, UNSPECIFIED Qualifiers: Hypotension type: unspecified hypotension type Qualified Code(s): I95.9 - Hypotension, unspecified (4) Lactic acid acidosis Code(s): E87.2 - ACIDOSIS (5) Weakness Code(s): R53.1 - WEAKNESS (6) Pulmonary embolism Code(s): I26.99 - OTHER PULMONARY EMBOLISM WITHOUT ACUTE COR PULMONALE Qualifiers: Pulmonary embolism type: saddle Chronicity: acute Acute cor pulmonale presence: with acute cor pulmonale Qualified Code(s): I26.02 - Saddle embolus of pulmonary artery with acute cor pulmonale (7) DVT (deep venous thrombosis) Code(s): I82.409 - ACUTE EMBOLISM AND THOMBOS UNSP DEEP VN UNSP LOWER EXTREMITY Qualifiers: DVT location: lower extremity Affected thrombotic vein of extremity: popliteal Chronicity: acute Laterality: left Qualified Code(s): I82.432 - Acute embolism and thrombosis of left popliteal vein (8) Dyspnea Code(s): R06.00 - DYSPNEA, UNSPECIFIED Qualifiers: Dyspnea type: dyspnea on exertion Qualified Code(s): R06.09 - Other forms of dyspnea (9) Prostate CA Code(s): C61 - MALIGNANT NEOPLASM OF PROSTATE Assessment/Plan 1. Acute pulmonary thromboembolism with RV strain and hypoxia s/p catheter directed mechanical thrombectomy and TPA 2. DVT - left popliteal S/P IVC filter 3. History of metastatic prostate CA 4. 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 J CARLOS with elevation of creatinine and hyperkalemia 6. Anemia 7. Mitral valve regurgitation PLAN: 1. Currently on Lovenox. Patient will need life long anticoagulation. Monitor rhythm and if AF is present, then choice of anticoagulation will need to be changed. Continue teletypesetter monitor. ECG today 2. Monitor H/H and transfuse PRBC as needed 3. Follow renal function and electrolytes Guarded. Further plans are to follow Vin Guillen MD
[2017-06-09] MEDS: VENLAFAXINE HCL 75 MG E.R. CAPSULES (FP) PO SCH (11:18)
--- NOTE | 2017-06-09 12:35 | PN ---
Progress Note (short form) - Note Progress Note: PULMONARY Less confused today. Denies shortness of breath or chest pain. Last Vital Signs Temp Pulse Resp BP Pulse Ox 98.8 F 90 18 124/58 94 L 06/09/17 10:00 06/09/17 10:00 06/09/17 10:00 06/09/17 10:00 06/08/17 22:00 Gen: NAD at rest Heart: RRR Lung: decreased breath sounds at the bases Abd: soft, nontender Ext: no edema CBC, BMP 06/09/17 05:40 06/09/17 05:40 Active Medications Albuterol/Ipratropium (Duoneb -) 1 amp NEB Q4HPO [facility] Last Admin: 06/09/17 10:05 Dose: 1 amp Dipyridamole/Aspirin (Aggrenox -) 1 combo PO BID [facility] Last Admin: 06/09/17 09:37 Dose: 1 combo Enoxaparin Sodium (Lovenox -) 80 mg SQ BID [facility] Last Admin: 06/09/17 09:37 Dose: 80 mg IV Flush (Triple Lumen Flush) 4 ml IVPUSH PRN PRN PRN Reason: Protocol IV Flush (Triple Lumen Flush) 4 ml IVPUSH PRN PRN Insulin Aspart (Novolog Vial Sliding Scale -) 1 vial SQ ACHS [facility] PRN Reason: Protocol Last Admin: 06/09/17 11:31 Dose: 2 units Morphine Sulfate (Ms Contin -) 30 mg PO BID [facility] Last Admin: 06/09/17 09:36 Dose: 30 mg Polyethylene Glycol (Miralax (For Daily Use) -) 17 gm PO DAILY [facility] Last Admin: 06/09/17 09:51 Dose: 17 grams Potassium Phos/Sodium Phos (Phos-Nak Packet -) 1 packet PO BID [facility] Last Admin: 06/09/17 09:40 Dose: 1 packet Pregabalin (Lyrica -) 100 mg PO TID [facility] Last Admin: 06/09/17 06:53 Dose: 100 mg Prochlorperazine Edisylate (Compazine Injection -) 10 mg IVPB Q6H PRN PRN Reason: NAUSEA AND/OR VOMITING Venlafaxine HCl (Effexor Xr -) 75 mg PO DAILY [facility] Last Admin: 06/09/17 11:18 Dose: Not Given A/P Submassive Pulmonary Embolism with RV dysfunction s/p catheter directed thrombectomy/thrombolysis LLE DVT s/p IVC filter +Troponins likely from above Lactic Acidosis resolved Acute Kidney Injury Metastatic Prostate Ca h/o PE DM - continue anticoagulation with LMWH - will need life long anticoagulation - monitor H/H - monitor urine output, creatinine - O2 to keep Spo2 >90% - needs rehab/PT
--- NOTE | 2017-06-09 17:33 | PN ---
Progress Note (short form) - Note Progress Note: s/p icu multiple medical problems s/p massive pe inder dm prostate ca/bone mets Current Medications Albuterol/Ipratropium (Duoneb -) 1 amp NEB Q4HPO [facility] Last Admin: 06/09/17 14:15 Dose: 1 amp Dipyridamole/Aspirin (Aggrenox -) 1 combo PO BID [facility] Last Admin: 06/09/17 09:37 Dose: 1 combo Enoxaparin Sodium (Lovenox -) 80 mg SQ BID [facility] Last Admin: 06/09/17 09:37 Dose: 80 mg IV Flush (Triple Lumen Flush) 4 ml IVPUSH PRN PRN PRN Reason: Protocol IV Flush (Triple Lumen Flush) 4 ml IVPUSH PRN PRN Insulin Aspart (Novolog Vial Sliding Scale -) 1 vial SQ ACHS [facility] PRN Reason: Protocol Last Admin: 06/09/17 17:24 Dose: 2 units Morphine Sulfate (Ms Contin -) 30 mg PO BID [facility] Last Admin: 06/09/17 09:36 Dose: 30 mg Polyethylene Glycol (Miralax (For Daily Use) -) 17 gm PO DAILY [facility] Last Admin: 06/09/17 09:51 Dose: 17 grams Potassium Phos/Sodium Phos (Phos-Nak Packet -) 1 packet PO BID [facility] Last Admin: 06/09/17 09:40 Dose: 1 packet Pregabalin (Lyrica -) 100 mg PO TID [facility] Last Admin: 06/09/17 14:48 Dose: 100 mg Prochlorperazine Edisylate (Compazine Injection -) 10 mg IVPB Q6H PRN PRN Reason: NAUSEA AND/OR VOMITING Venlafaxine HCl (Effexor Xr -) 75 mg PO DAILY [facility] Last Admin: 06/09/17 11:18 Dose: Not Given Last Vital Signs Temp Pulse Resp BP Pulse Ox 98.5 F 80 20 127/65 94 L 06/09/17 14:00 06/09/17 14:00 06/09/17 14:00 06/09/17 14:00 06/09/17 09:00 O/E sleeping, lying flat vital signs noted, cardiac rhythm noted on monitor CBC, BMP 06/09/17 05:40 06/09/17 05:40 06/09/17 05:40 Calcium 7.3 L Phosphorus 1.3 L D Albumin 1.7 L IMP- multiple electrolyte disorders- pretty much resolved still with hypophosphatemia corrected calcium 9.14 Plan- replace phosphorus today address dietary intake
[2017-06-09] MEDS ORDERED: SODIUM PHOSPHATE - 15 MM in DEXTROSE 5%-WATER - 250 ML IVPB ONE (17:35)
--- NOTE | 2017-06-09 20:37 | PN ---
Physical Exam: SUBJECTIVE: Patient seen and examined at bedside. OBJECTIVE: Vital Signs Period Temp Pulse Resp BP Sys/Kim Pulse Ox Last 24 Hr 98 F-99.3 F 80-93 18-22 110-142/55-65 94-96 GENERAL: The patient is awake, alert, and fully oriented, in no acute distress. HEAD: Normal with no signs of trauma. LUNGS: Breath sounds equal, clear to auscultation bilaterally, no wheezes, no crackles, no accessory muscle use. HEART: Regular rate and rhythm, S1, S2 without murmur, rub or gallop. ABDOMEN: Soft, nontender, nondistended, normoactive bowel sounds, no guarding, no rebound EXTREMITIES: 1-2+ bilateral lower extremity edema from feet to knees, mildly improved from yesterday, venous stasis changes, cap refill <3 seconds NEUROLOGICAL: Cranial nerves II through XII grossly intact. Normal speech, gait not observed. Laboratory Results - last 24 hr 06/08/17 06/08/17 06/09/17 16:59 21:16 05:39 WBC RBC Hgb Hct MCV MCH MCHC RDW Plt Count MPV Neutrophils % Lymphocytes % Monocytes % Eosinophils % Basophils % Sodium Potassium Chloride Carbon Dioxide Anion Gap BUN Creatinine Creat Clearance w eGFR POC Glucometer [phone] 206 Random Glucose Calcium Phosphorus Magnesium Total Bilirubin AST ALT Alkaline Phosphatase Total Protein Albumin 06/09/17 06/09/17 06/09/17 05:40 05:40 11:07 WBC 6.6 RBC 2.89 L Hgb 9.0 L Hct 26.9 L MCV 93.0 MCH 31.1 MCHC 33.5 RDW 16.7 H Plt Count 264 MPV 8.0 Neutrophils % 78.2 Lymphocytes % 8.9 D Monocytes % 10.3 H Eosinophils % 2.1 D Basophils % 0.5 Sodium 140 Potassium 4.6 Chloride 105 Carbon Dioxide 28 D Anion Gap 7 L BUN 13 Creatinine 0.7 Creat Clearance w eGFR > 60 POC Glucometer 190 Random Glucose 191 H Calcium 7.3 L Phosphorus 1.3 L D Magnesium 1.9 D Total Bilirubin 0.8 D AST 31 ALT 40 D Alkaline Phosphatase 243 H D Total Protein 5.2 L Albumin 1.7 L Active Medications Generic Name Dose Route Start Last Admin Trade Name Freq PRN Reason Stop Dose Admin Albuterol/Ipratropium 1 amp 06/07/17 18:00 06/09/17 19:00 Duoneb - NEB 1 amp Q4HPO [facility] Administration Dipyridamole/Aspirin 1 combo 06/03/17 22:00 06/09/17 09:37 Aggrenox - PO 1 combo BID [facility] Administration Enoxaparin Sodium 80 mg 06/06/17 22:00 06/09/17 09:37 Lovenox - SQ 80 mg BID [facility] Administration IV Flush 4 ml 06/05/17 10:15 Triple Lumen Flush IVPUSH PRN PRN Protocol IV Flush 4 ml 06/05/17 17:18 Triple Lumen Flush IVPUSH PRN PRN Sodium Phosphate 15 mm/ 255 mls @ 62.5 mls/hr 06/09/17 17:35 Dextrose IVPB 06/09/17 21:39 ONCE ONE Insulin Aspart 1 vial 06/03/17 16:30 06/09/17 17:24 Novolog Vial Sliding Scale - SQ 2 units ACHS [facility] Administration Protocol Morphine Sulfate 30 mg 06/03/17 22:00 06/09/17 09:36 Ms Contin - PO 30 mg BID [facility] Administration Polyethylene Glycol 17 gm 06/06/17 12:45 06/09/17 09:51 Miralax (For Daily Use) - PO 17 grams DAILY [facility] Administration Potassium Phos/Sodium Phos 1 packet 06/07/17 10:00 06/09/17 09:40 Phos-Nak Packet - PO 1 packet BID [facility] Administration Pregabalin 100 mg 06/03/17 14:00 06/09/17 14:48 Lyrica - PO 100 mg TID [facility] Administration Prochlorperazine Edisylate 10 mg 06/08/17 10:16 Compazine Injection - IVPB Q6H PRN NAUSEA AND/OR VOMITING Venlafaxine HCl 75 mg 06/04/17 10:00 06/09/17 11:18 Effexor Xr - PO Not Given DAILY [facility] ASSESSMENT & PLAN 87 year-old male with a significant PMH of HTN, previous PE, CAD, prostate cancer, COPD, NIDDM, GERD, and anxiety. Admitted for extensive bilateral PE with right heart strain and left LE DVT. Now s/p IVC filter, thombolysis and thrombectomy. Left lower extremity DVT --s/p IVC filter on 06/05 --on full dose lovenox Large volume thrombus bilateral pulmonary arteries Severe right ventricular systolic failureASSESSMENT & PLAN 87 year-old male with a significant PMH of HTN, previous PE, CAD, prostate cancer, COPD, NIDDM, GERD, and anxiety. Admitted for extensive bilateral PE with right heart strain and left LE DVT. Now s/p IVC filter, thombolysis and thrombectomy. Left lower extremity DVT --s/p IVC filter on 06/05 --on full dose lovenox Large volume thrombus bilateral pulmonary arteries complicated by right heart strain --initial echo on 06/04: intraventricular septum flat with paradoxical motion ; RV severely dilated; RV systolic function severely reduced; RA severely dilated; moderate MR; severe TR; moderate pHTN; mid AI; aortic root calcified and dilated --underwent TPA and thrombectomy 06/04 --post-thrombectomy echo 06/06 improved: LV normal; RV moderately dilated, RV function moderately reduced; mild TR; pHTN --continue full dose lovenox Severe right ventricular systolic failure Bilateral lower extremity edema --echo studies as above --lower extremity edema improved with Lasix --Lasix PRN Demand ischemia/elevated troponin --troponin peak 3.12, downtrending --likely from PE Coronary artery disease --continue aggrenox Anemia --transfused 1U PRBC on 06/07, Hgb 8.8-->9.8 --h/h stable Hypertension --improved --on no meds J CARLOS --resolved Metastatic prostate cancer --being treated as outpatient with denosumab --MsContin BID for pain management NIDDM --Novolog sliding scale Hypomagnesemia --resolved Hypophosphatemia --repleted F/E/N Fluids: PO intake adequate Electrolytes: replete as indicated Nutrition: diabetic diet DVT prophylaxis: full dose lovenox, oob, ambulation PT evaluation Daily PT Dispo: will need updated PT evaluation after the holiday weekend; most likely SNF placement. Full Code. Visit type - Emergency Visit Emergency Visit: Yes ED Registration Date: 06/03/17 Care time: The patient presented to the Emergency Department on the above date and was hospitalized for further evaluation of their emergent condition. - New Patient This patient is new to me today: No - Critical Care Critical Care patient: No
[2017-06-10] MEDS: ALBUTEROL SO4 2.5/IPRATROPIUM 0.5 INH SOL 3 ML VIAL.NEB. NEB SCH ×6 (02:53→22:19)
[2017-06-10] MEDS: PREGABALIN 50 MG CAPSULE PO SCH ×3 (06:09→22:28)
[2017-06-10] MEDS: INSULIN SLIDING SCALE (NOVOLOG) 1 VIAL SQ SCH ×4 (06:09→22:30)
[2017-06-10 08:44] LABS: ANION GAP 9 (8-16); CALCIUM 7.2 mg/dL (8.5-10.1); CO2 26 mmol/L (21-32); CREATININE 0.7 mg/dL (0.7-1.3); GLUCOSE,RANDOM 129 mg/dL (74-106)
--- NOTE | 2017-06-10 09:50 | PN ---
Progress Note, Physician History of Present Illness: PULMONARY ALERT,NAD,-CP,-SOB - Current Medication List Current Medications: Active Medications Albuterol/Ipratropium (Duoneb -) 1 amp NEB Q4HPO [facility] Last Admin: 06/10/17 06:34 Dose: 1 amp Dipyridamole/Aspirin (Aggrenox -) 1 combo PO BID [facility] Last Admin: 06/09/17 22:08 Dose: 1 combo Enoxaparin Sodium (Lovenox -) 80 mg SQ BID [facility] Last Admin: 06/09/17 22:08 Dose: 80 mg IV Flush (Triple Lumen Flush) 4 ml IVPUSH PRN PRN PRN Reason: Protocol IV Flush (Triple Lumen Flush) 4 ml IVPUSH PRN PRN Insulin Aspart (Novolog Vial Sliding Scale -) 1 vial SQ ACHS [facility] PRN Reason: Protocol Last Admin: 06/10/17 06:09 Dose: Not Given Morphine Sulfate (Ms Contin -) 30 mg PO BID [facility] Last Admin: 06/09/17 22:08 Dose: 30 mg Polyethylene Glycol (Miralax (For Daily Use) -) 17 gm PO DAILY [facility] Last Admin: 06/09/17 09:51 Dose: 17 grams Potassium Phos/Sodium Phos (Phos-Nak Packet -) 1 packet PO BID [facility] Last Admin: 06/09/17 22:08 Dose: 1 packet Pregabalin (Lyrica -) 100 mg PO TID [facility] Last Admin: 06/10/17 06:09 Dose: 100 mg Prochlorperazine Edisylate (Compazine Injection -) 10 mg IVPB Q6H PRN PRN Reason: NAUSEA AND/OR VOMITING Venlafaxine HCl (Effexor Xr -) 75 mg PO DAILY [facility] Last Admin: 06/09/17 11:18 Dose: Not Given - Objective Vital Signs: Vital Signs Temperature 98.3 F 06/10/17 06:00 Pulse Rate 84 06/10/17 06:00 Respiratory Rate 18 06/10/17 06:00 Blood Pressure 119/57 06/10/17 06:00 O2 Sat by Pulse Oximetry (%) 95 06/09/17 21:00 Constitutional: Yes: Well Nourished, Calm Eyes: Yes: WNL HENT: Yes: WNL Neck: Yes: WNL Cardiovascular: Yes: Regular Rate and Rhythm, S1, S2 Respiratory: Yes: CTA Bilaterally Gastrointestinal: Yes: Normal Bowel Sounds, Soft Extremities: Yes: WNL Edema: Yes Labs: 06/10/17 07:00 INR, PTT INR 1.30 (0.82-1.09) H D 06/06/17 05:20 Problem List - Problems (1) J CARLOS (acute kidney injury) Code(s): N17.9 - ACUTE KIDNEY FAILURE, UNSPECIFIED (2) DVT (deep venous thrombosis) Code(s): I82.409 - ACUTE EMBOLISM AND THOMBOS UNSP DEEP VN UNSP LOWER EXTREMITY Qualifiers: DVT location: lower extremity Affected thrombotic vein of extremity: popliteal Chronicity: acute Laterality: left Qualified Code(s): I82.432 - Acute embolism and thrombosis of left popliteal vein (3) Diabetes Code(s): E11.9 - TYPE 2 DIABETES MELLITUS WITHOUT COMPLICATIONS Qualifiers: Diabetes mellitus type: type 2 Diabetes mellitus complication status: without complication Diabetes mellitus ad terminal makeup operator insulin use: without alf use Qualified Code(s): E11.9 - Type 2 diabetes mellitus without complications (4) Dyspnea Code(s): R06.00 - DYSPNEA, UNSPECIFIED Qualifiers: Dyspnea type: dyspnea on exertion Qualified Code(s): R06.09 - Other forms of dyspnea (5) Lactic acid acidosis Code(s): E87.2 - ACIDOSIS (6) Prostate CA Code(s): C61 - MALIGNANT NEOPLASM OF PROSTATE (7) Pulmonary embolism Code(s): I26.99 - OTHER PULMONARY EMBOLISM WITHOUT ACUTE COR PULMONALE Qualifiers: Pulmonary embolism type: saddle Chronicity: acute Acute cor pulmonale presence: with acute cor pulmonale Qualified Code(s): I26.02 - Saddle embolus of pulmonary artery with acute cor pulmonale Assessment/Plan /P Submassive Pulmonary Embolism with RV dysfunction s/p catheter directed thrombectomy/thrombolysis LLE DVT s/p IVC filter +Troponins likely from above Lactic Acidosis resolved Acute Kidney Injury Metastatic Prostate Ca h/o PE DM - continue anticoagulation with LMWH - will need life long anticoagulation - monitor H/H - monitor urine output, creatinine - O2 to keep Spo2 >90% - needs rehab/PT DR JORGE
[2017-06-10] MEDS: VENLAFAXINE HCL 75 MG E.R. CAPSULES (FP) PO SCH (09:56)
[2017-06-10] MEDS: ENOXAPARIN NA (PORCINE) 80 MG/0.8 ML DISP.SYRIN SQ SCH ×2 (09:56→22:30)
[2017-06-10] MEDS: morphine SO4 SUSTAINED ACTING 30 MG TABLET.SA PO SCH ×2 (09:57→22:28)
[2017-06-10] MEDS: ASPIRIN/DIPYRIDAMOLE 25 MG/200 MG CAPSULE (FP) PO SCH ×2 (09:57→22:28)
[2017-06-10] MEDS: POLYETHYLENE GLYCOL 3350 119 GM BTL PO SCH ×2 (09:57→22:26)
[2017-06-10] MEDS: NAPH,MB-DB/K PH,MBDB POWDER PACKET PO SCH ×2 (09:59→22:33)
--- NOTE | 2017-06-10 10:34 | PN ---
Progress Note, Physician Chief Complaint: Events noted Transferred to telemetry, post catheter directed thrombectomy and infusion of TPA and IVC filter Constipated History of Present Illness: Patient was seen and examined. Awake and alert. Chart was reviewed Denies chest pain. Not in distress - Current Medication List Current Medications: Active Medications Albuterol/Ipratropium (Duoneb -) 1 amp NEB Q4HPO [facility] Last Admin: 06/10/17 06:34 Dose: 1 amp Dipyridamole/Aspirin (Aggrenox -) 1 combo PO BID [facility] Last Admin: 06/10/17 09:57 Dose: 1 combo Enoxaparin Sodium (Lovenox -) 80 mg SQ BID [facility] Last Admin: 06/10/17 09:56 Dose: 80 mg IV Flush (Triple Lumen Flush) 4 ml IVPUSH PRN PRN PRN Reason: Protocol IV Flush (Triple Lumen Flush) 4 ml IVPUSH PRN PRN Insulin Aspart (Novolog Vial Sliding Scale -) 1 vial SQ ACHS [facility] PRN Reason: Protocol Last Admin: 06/10/17 06:09 Dose: Not Given Morphine Sulfate (Ms Contin -) 30 mg PO BID [facility] Last Admin: 06/10/17 09:57 Dose: 30 mg Polyethylene Glycol (Miralax (For Daily Use) -) 17 gm PO DAILY [facility] Last Admin: 06/10/17 09:57 Dose: 17 grams Potassium Phos/Sodium Phos (Phos-Nak Packet -) 1 packet PO BID [facility] Last Admin: 06/10/17 09:59 Dose: 1 packet Pregabalin (Lyrica -) 100 mg PO TID [facility] Last Admin: 06/10/17 06:09 Dose: 100 mg Prochlorperazine Edisylate (Compazine Injection -) 10 mg IVPB Q6H PRN PRN Reason: NAUSEA AND/OR VOMITING Venlafaxine HCl (Effexor Xr -) 75 mg PO DAILY [facility] Last Admin: 06/10/17 09:56 Dose: 75 mg - Objective Vital Signs: Vital Signs Temperature 98.3 F 06/10/17 06:00 Pulse Rate 84 06/10/17 06:00 Respiratory Rate 18 06/10/17 06:00 Blood Pressure 119/57 06/10/17 06:00 O2 Sat by Pulse Oximetry (%) 95 06/09/17 21:00 Neck: Yes: Supple Cardiovascular: Yes: Regular Rate and Rhythm, S1, S2 Respiratory: Yes: Diminished Gastrointestinal: Yes: Normal Bowel Sounds, Soft. No: Tenderness Edema: No Additional Findings/Remarks: - Review of Systems Constitutional: denies: Chills, Fever Cardiovascular: reports: Shortness of Breath - improved denies: Chest Pain, Palpitations Respiratory: reports: SOB - improved. denies: Orthopnea, PND Gastrointestinal: denies: Abdominal Pain, Constipation, Diarrhea, Melena, Nausea , Rectal Bleeding, Vomiting Neurological: reports: Weakness. denies: Dizziness, Headache, Seizure, Syncope Labs: CBC, BMP 06/09/17 05:40 06/10/17 07:00 Problem List - Problems (1) J CARLOS (acute kidney injury) Code(s): N17.9 - ACUTE KIDNEY FAILURE, UNSPECIFIED (2) Diabetes Code(s): E11.9 - TYPE 2 DIABETES MELLITUS WITHOUT COMPLICATIONS Qualifiers: Diabetes mellitus type: type 2 Diabetes mellitus complication status: without complication Diabetes mellitus halfway insulin use: without halfway use Qualified Code(s): E11.9 - Type 2 diabetes mellitus without complications (3) Hypotension Code(s): I95.9 - HYPOTENSION, UNSPECIFIED Qualifiers: Hypotension type: unspecified hypotension type Qualified Code(s): I95.9 - Hypotension, unspecified (4) Lactic acid acidosis Code(s): E87.2 - ACIDOSIS (5) Weakness Code(s): R53.1 - WEAKNESS (6) Pulmonary embolism Code(s): I26.99 - OTHER PULMONARY EMBOLISM WITHOUT ACUTE COR PULMONALE Qualifiers: Pulmonary embolism type: saddle Chronicity: acute Acute cor pulmonale presence: with acute cor pulmonale Qualified Code(s): I26.02 - Saddle embolus of pulmonary artery with acute cor pulmonale (7) DVT (deep venous thrombosis) Code(s): I82.409 - ACUTE EMBOLISM AND THOMBOS UNSP DEEP VN UNSP LOWER EXTREMITY Qualifiers: DVT location: lower extremity Affected thrombotic vein of extremity: popliteal Chronicity: acute Laterality: left Qualified Code(s): I82.432 - Acute embolism and thrombosis of left popliteal vein (8) Dyspnea Code(s): R06.00 - DYSPNEA, UNSPECIFIED Qualifiers: Dyspnea type: dyspnea on exertion Qualified Code(s): R06.09 - Other forms of dyspnea (9) Prostate CA Code(s): C61 - MALIGNANT NEOPLASM OF PROSTATE Assessment/Plan 1. Acute pulmonary thromboembolism with RV strain and hypoxia s/p catheter directed mechanical thrombectomy and TPA 2. DVT - left popliteal S/P IVC filter 3. History of metastatic prostate CA 4. 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 J CARLOS with elevation of creatinine and hyperkalemia 6. Anemia 7. Mitral valve regurgitation PLAN: 1. Currently on Lovenox. Patient will need life long anticoagulation. Monitor rhythm and if AF is present, then choice of anticoagulation will need to be changed. Continue classroom monitor. Currently he is in sinus rhythm and no evidence of AF 2. Monitor H/H and transfuse PRBC as needed 3. Follow renal function and electrolytes 4. Laxatives 5. PT/rehab Guarded. Further plans are to follow Vin Guillen MD
[2017-06-10] MEDS ORDERED: BISACODYL 10 MG SUPP.RECT RC ONE (14:00)
--- NOTE | 2017-06-10 16:58 | PN ---
Progress Note (short form) - Note Progress Note: s/p icu multiple medical problems s/p massive pe- thrombectomy and tPA inder dm prostate ca/bone mets Current Medications Albuterol/Ipratropium (Duoneb -) 1 amp NEB Q4HPO [facility] Last Admin: 06/10/17 15:05 Dose: 1 amp Dipyridamole/Aspirin (Aggrenox -) 1 combo PO BID [facility] Last Admin: 06/10/17 09:57 Dose: 1 combo Docusate Sodium (Colace -) 300 mg PO HS [facility] Enoxaparin Sodium (Lovenox -) 80 mg SQ BID [facility] Last Admin: 06/10/17 09:56 Dose: 80 mg IV Flush (Triple Lumen Flush) 4 ml IVPUSH PRN PRN PRN Reason: Protocol IV Flush (Triple Lumen Flush) 4 ml IVPUSH PRN PRN Insulin Aspart (Novolog Vial Sliding Scale -) 1 vial SQ ACHS [facility] PRN Reason: Protocol Last Admin: 06/10/17 12:05 Dose: 4 units Morphine Sulfate (Ms Contin -) 30 mg PO BID [facility] Last Admin: 06/10/17 09:57 Dose: 30 mg Polyethylene Glycol (Miralax (For Daily Use) -) 17 gm PO BID [facility] Potassium Phos/Sodium Phos (Phos-Nak Packet -) 1 packet PO BID [facility] Last Admin: 06/10/17 09:59 Dose: 1 packet Pregabalin (Lyrica -) 100 mg PO TID [facility] Last Admin: 06/10/17 16:09 Dose: 100 mg Prochlorperazine Edisylate (Compazine Injection -) 10 mg IVPB Q6H PRN PRN Reason: NAUSEA AND/OR VOMITING Venlafaxine HCl (Effexor Xr -) 75 mg PO DAILY [facility] Last Admin: 06/10/17 09:56 Dose: 75 mg Last Vital Signs Temp Pulse Resp BP Pulse Ox 98 F 80 18 124/58 93 L 06/10/17 13:52 06/10/17 13:52 06/10/17 13:52 06/10/17 13:52 06/10/17 10:20 O/E sleeping, lying flat vital signs noted, cardiac rhythm noted on monitor CBC, BMP 06/09/17 05:40 06/10/17 07:00 06/09/17 06/10/17 05:40 07:00 Calcium 7.3 L 7.2 L Phosphorus 1.3 L D 2.0 L D Magnesium 2.0 Albumin 1.7 L IMP- multiple electrolyte disorders- pretty much resolved still with hypophosphatemia corrected calcium 9.14 Plan- address dietary intake
--- NOTE | 2017-06-10 20:39 | PN ---
Physical Exam: SUBJECTIVE: Patient seen and examined at bedside. OBJECTIVE: Vital Signs Period Temp Pulse Resp BP Sys/Kim Pulse Ox Last 24 Hr 97.3 F-98.3 F 80-93 16-20 102-124/43-58 93-96 GENERAL: The patient is awake, alert, and fully oriented, in no acute distress. HEAD: Normal with no signs of trauma. LUNGS: Breath sounds equal, clear to auscultation bilaterally, no wheezes, no crackles, no accessory muscle use. HEART: Regular rate and rhythm, S1, S2 without murmur, rub or gallop. ABDOMEN: Soft, nontender, nondistended, normoactive bowel sounds, no guarding, no rebound EXTREMITIES: 1+bilateral lower extremity edema from feet to knees, venous stasis changes, cap refill <3 seconds NEUROLOGICAL: Cranial nerves II through XII grossly intact. Normal speech, gait not observed. Laboratory Results - last 24 hr 06/06/17 06/07/17 06/09/17 05:20 16:20 16:42 Sodium Potassium Chloride Carbon Dioxide Anion Gap BUN Creatinine POC Glucometer 110.33235 Random Glucose Calcium Phosphorus Magnesium Prostate Specific Ag 1237.00 H D Blood Type A NEGATIVE Antibody Screen Negative Crossmatch See Detail 06/09/17 06/10/17 06/10/17 22:07 06:03 07:00 Sodium 139 Potassium 5.1 Chloride 104 Carbon Dioxide 26 Anion Gap 9 BUN 15 Creatinine 0.7 POC Glucometer 241 149 Random Glucose 129 H D Calcium 7.2 L Phosphorus 2.0 L D Magnesium 2.0 Prostate Specific Ag Blood Type Antibody Screen Crossmatch 06/10/17 10:58 Sodium Potassium Chloride Carbon Dioxide Anion Gap BUN Creatinine POC Glucometer 210 Random Glucose Calcium Phosphorus Magnesium Prostate Specific Ag Blood Type Antibody Screen Crossmatch Active Medications Generic Name Dose Route Start Last Admin Trade Name Freq PRN Reason Stop Dose Admin Albuterol/Ipratropium 1 amp 06/07/17 18:00 06/10/17 17:15 Duoneb - NEB 1 amp Q4HPO [facility] Administration Dipyridamole/Aspirin 1 combo 06/03/17 22:00 06/10/17 09:57 Aggrenox - PO 1 combo BID [facility] Administration Docusate Sodium 300 mg 06/10/17 22:00 Colace - PO HS [facility] Enoxaparin Sodium 80 mg 06/06/17 22:00 06/10/17 09:56 Lovenox - SQ 80 mg BID [facility] Administration IV Flush 4 ml 06/05/17 10:15 Triple Lumen Flush IVPUSH PRN PRN Protocol IV Flush 4 ml 06/05/17 17:18 Triple Lumen Flush IVPUSH PRN PRN Insulin Aspart 1 vial 06/03/17 16:30 06/10/17 17:35 Novolog Vial Sliding Scale - SQ 6 units ACHS [facility] Administration Protocol Morphine Sulfate 30 mg 06/03/17 22:00 06/10/17 09:57 Ms Contin - PO 30 mg BID [facility] Administration Polyethylene Glycol 17 gm 06/10/17 22:00 Miralax (For Daily Use) - PO BID [facility] Potassium Phos/Sodium Phos 1 packet 06/07/17 10:00 06/10/17 09:59 Phos-Nak Packet - PO 1 packet BID [facility] Administration Pregabalin 100 mg 06/03/17 14:00 06/10/17 16:09 Lyrica - PO 100 mg TID [facility] Administration Prochlorperazine Edisylate 10 mg 06/08/17 10:16 Compazine Injection - IVPB Q6H PRN NAUSEA AND/OR VOMITING Venlafaxine HCl 75 mg 06/04/17 10:00 06/10/17 09:56 Effexor Xr - PO 75 mg DAILY [facility] Administration ASSESSMENT & PLAN 87 year-old male with a significant PMH of HTN, previous PE, CAD, prostate cancer, COPD, NIDDM, GERD, and anxiety. Admitted for extensive bilateral PE with right heart strain and left LE DVT. Now s/p IVC filter, thombolysis and thrombectomy. Left lower extremity DVT --s/p IVC filter on 06/05 --on full dose lovenox Large volume thrombus bilateral pulmonary arteries Severe right ventricular systolic failure Left lower extremity DVT --s/p IVC filter on 06/05 --on full dose lovenox Large volume thrombus bilateral pulmonary arteries complicated by right heart strain --initial echo on 06/04: intraventricular septum flat with paradoxical motion ; RV severely dilated; RV systolic function severely reduced; RA severely dilated; moderate MR; severe TR; moderate pHTN; mid AI; aortic root calcified and dilated --underwent TPA and thrombectomy 06/04 --post-thrombectomy echo 06/06 improved: LV normal; RV moderately dilated, RV function moderately reduced; mild TR; pHTN --continue full dose lovenox Severe right ventricular systolic failure Bilateral lower extremity edema --echo studies as above --lower extremity edema improved --Lasix PRN Demand ischemia/elevated troponin --troponin peak 3.12, downtrending --likely from PE Coronary artery disease --continue aggrenox Anemia --transfused 1U PRBC on 06/07, Hgb 8.8-->9.8 --h/h stable Hypertension --improved --on no meds J CARLOS --resolved Metastatic prostate cancer --being treated as outpatient with denosumab --MsContin BID for pain management NIDDM --Novolog sliding scale Hypomagnesemia --resolved Hypophosphatemia --repleted F/E/N Fluids: PO intake adequate Electrolytes: replete as indicated Nutrition: diabetic diet DVT prophylaxis: full dose lovenox, oob, ambulation PT evaluation Daily PT Dispo: will need updated PT evaluation after the ; most likely SNF placement. Full Code. Visit type - Emergency Visit Emergency Visit: Yes ED Registration Date: 06/03/17 Care time: The patient presented to the Emergency Department on the above date and was hospitalized for further evaluation of their emergent condition. - New Patient This patient is new to me today: No - Critical Care Critical Care patient: No
[2017-06-10] MEDS: DOCUSATE SODIUM 100 MG CAPSULE (FP) PO SCH (22:27)
[2017-06-10] MEDS ORDERED: morphine SO4 SUSTAINED ACTING 30 MG TABLET.SA PO SCH (22:30)
[2017-06-11] MEDS: ALBUTEROL SO4 2.5/IPRATROPIUM 0.5 INH SOL 3 ML VIAL.NEB. NEB SCH ×5 (02:25→22:00)
[2017-06-11] MEDS: INSULIN SLIDING SCALE (NOVOLOG) 1 VIAL SQ SCH ×4 (06:20→22:31)
[2017-06-11] MEDS: PREGABALIN 50 MG CAPSULE PO SCH ×3 (06:20→22:21)
--- NOTE | 2017-06-11 07:46 | PN ---
Progress Note (short form) - Note Progress Note: Chief Complaint: Events noted, notes reviewed, denies any dyspnea or chest discomfort History of Present Illness: Seen and examined on telemetry. Events noted, notes reviewed, denies any dyspnea or chest discomfort - Current Medication List Current Medications Albuterol/Ipratropium (Duoneb -) 1 amp NEB Q4HPO [facility] Last Admin: 06/11/17 06:32 Dose: 1 amp Dipyridamole/Aspirin (Aggrenox -) 1 combo PO BID [facility] Last Admin: 06/10/17 22:28 Dose: 1 combo Docusate Sodium (Colace -) 300 mg PO HS [facility] Last Admin: 06/10/17 22:27 Dose: 300 mg Enoxaparin Sodium (Lovenox -) 80 mg SQ BID [facility] Last Admin: 06/10/17 22:30 Dose: 80 mg IV Flush (Triple Lumen Flush) 4 ml IVPUSH PRN PRN PRN Reason: Protocol IV Flush (Triple Lumen Flush) 4 ml IVPUSH PRN PRN Insulin Aspart (Novolog Vial Sliding Scale -) 1 vial SQ ACHS [facility] PRN Reason: Protocol Last Admin: 06/11/17 06:20 Dose: 2 units Polyethylene Glycol (Miralax (For Daily Use) -) 17 gm PO BID [facility] Last Admin: 06/10/17 22:26 Dose: 17 gm Potassium Phos/Sodium Phos (Phos-Nak Packet -) 1 packet PO BID [facility] Last Admin: 06/10/17 22:33 Dose: 1 packet Pregabalin (Lyrica -) 100 mg PO TID [facility] Last Admin: 06/11/17 06:20 Dose: 100 mg Prochlorperazine Edisylate (Compazine Injection -) 10 mg IVPB Q6H PRN PRN Reason: NAUSEA AND/OR VOMITING Venlafaxine HCl (Effexor Xr -) 75 mg PO DAILY [facility] Last Admin: 06/10/17 09:56 Dose: 75 mg Review of Systems Constitutional: denies: Chills Cardiovascular: As noted above Respiratory: denies: Cough or Sputum Production Gastrointestinal: denies: Nausea, Vomiting, Diarrhea, Constipation or Abdominal Pain Musculoskeletal: No Symptoms Reported Neurological: denies: Dizziness or Headache - Objective Vital Signs: Last Vital Signs Temp Pulse Resp BP Pulse Ox 98.3 F 80 19 116/56 95 06/11/17 06:00 06/11/17 06:00 06/11/17 06:00 06/11/17 06:00 06/11/17 06:00 Intake & Output 06/08/17 06/09/17 06/10/17 06/11/17 23:59 23:59 23:59 23:59 Intake Total 1320 350 300 240 Output Total 4800 1400 1400 Balance -3480 -1050 -1100 240 Weight 200 lb 8 oz Neck: Supple Negative JVD No Bruit Cardiovascular: S1 S2 Regular Rate and Rhythm No Murmurs Respiratory: Diminished Breath Sounds at the Bases Gastrointestinal: Soft Benign Normal Bowel Sounds Ext: No Edema Labs: CBC, BMP 06/09/17 05:40 06/10/17 07:00 Assessment/Plan ASSESSMENT: 1. Acute pulmonary thromboembolism with RV strain and hypoxia post catheter directed mechanical thrombectomy and TPA 2. RV dysfunction with severe TR due to above PTE 3. CAD with evidence of demand ischemic injury 4. MR/mitral regurgitation 5. DVT - left popliteal vein post IVC filter insertion 6. History of metastatic prostate CA 7. Acute renal insufficiency, resolved 8. Anemia PLAN: 1. Continue Lovenox and usp A/C to be decided, considering his clinical presentation 2. Monitor CBC closely and transfuse as needed to maintain Hg equal or > 8.0 3. Question continuation of Dipyridamole/Aspirin (Aggrenox), consider ASA only ( increase risk of bleed) Sue Parada M.D.
[2017-06-11] MEDS: ASPIRIN/DIPYRIDAMOLE 25 MG/200 MG CAPSULE (FP) PO SCH ×2 (09:29→22:21)
[2017-06-11] MEDS: ENOXAPARIN NA (PORCINE) 80 MG/0.8 ML DISP.SYRIN SQ SCH ×2 (09:29→22:24)
[2017-06-11] MEDS ORDERED: PT OWN MED DRAWER 7, Y5N ONE (09:31)
[2017-06-11] MEDS: VENLAFAXINE HCL 75 MG E.R. CAPSULES (FP) PO SCH (09:31)
[2017-06-11] MEDS: POLYETHYLENE GLYCOL 3350 119 GM BTL PO SCH ×2 (09:31→22:20)
[2017-06-11] MEDS: NAPH,MB-DB/K PH,MBDB POWDER PACKET PO SCH ×2 (09:32→22:24)
--- NOTE | 2017-06-11 09:50 | DS ---
Physical Exam: SUBJECTIVE: Patient seen and examined at bedside. Voices no complaints. OBJECTIVE: Vital Signs Period Temp Pulse Resp BP Sys/Kim Pulse Ox Last 24 Hr 97.3 F-98.3 F 80-93 18-19 102-127/45-81 86-96 PHYSICAL EXAM GENERAL: The patient is awake, alert, and fully oriented, in no acute distress. HEAD: Normal with no signs of trauma. LUNGS: Breath sounds equal, clear to auscultation bilaterally, no wheezes, no crackles, no accessory muscle use. HEART: Regular rate and rhythm, S1, S2 without murmur, rub or gallop. ABDOMEN: Soft, nontender, nondistended, normoactive bowel sounds, no guarding, no rebound EXTREMITIES: 1+bilateral lower extremity edema from feet to knees, venous stasis changes, cap refill <3 seconds NEUROLOGICAL: Cranial nerves II through XII grossly intact. Normal speech, gait not observed. LABS Laboratory Results - last 24 hr 06/06/17 06/07/17 06/10/17 05:20 16:20 10:58 POC Glucometer 210 Prostate Specific Ag 1237.00 H D Blood Type A NEGATIVE Antibody Screen Negative Crossmatch See Detail 06/10/17 06/11/17 22:24 06:19 POC Glucometer 195 187 Prostate Specific Ag Blood Type Antibody Screen Crossmatch CBCD WBC 6.6 K/mm3 (4.0-10.0) 06/09/17 05:40 RBC 2.89 M/mm3 (4.00-5.60) L 06/09/17 05:40 Hgb 9.0 GM/dL (11.7-16.9) L 06/09/17 05:40 Hct 26.9 % (35.4-49) L 06/09/17 05:40 MCV 93.0 fl (80-96) 06/09/17 05:40 MCHC 33.5 g/dl (32.0-35.9) 06/09/17 05:40 RDW 16.7 % (11.9-15.9) H 06/09/17 05:40 Plt Count 264 K/MM3 (134-434) 06/09/17 05:40 MPV 8.0 fl (7.5-11.1) 06/09/17 05:40 CMP Sodium 139 mmol/L (136-145) 06/10/17 07:00 Potassium 5.1 mmol/L (3.5-5.1) 06/10/17 07:00 Chloride 104 mmol/L (98-107) 06/10/17 07:00 Carbon Dioxide 26 mmol/L (21-32) 06/10/17 07:00 Anion Gap 9 (8-16) 06/10/17 07:00 BUN 15 mg/dL (7-18) 06/10/17 07:00 Creatinine 0.7 mg/dL (0.7-1.3) 06/10/17 07:00 Creat Clearance w eGFR > 60 (>60) 06/09/17 05:40 Calcium 7.2 mg/dL (8.5-10.1) L 06/10/17 07:00 Total Bilirubin 0.8 mg/dL (0.2-1.0) D 06/09/17 05:40 AST 31 U/L (15-37) 06/09/17 05:40 ALT 40 U/L (12-78) D 06/09/17 05:40 Alkaline Phosphatase 243 U/L (45-117) H D 06/09/17 05:40 Total Protein 5.2 g/dl (6.4-8.2) L 06/09/17 05:40 Albumin 1.7 g/dl (3.4-5.0) L 06/09/17 05:40 HOSPITAL COURSE: Date of Admission:06/03/17 Date of Discharge: 06/11/17 87 year-old male with a significant PMH of HTN, previous PE, CAD, prostate cancer, COPD, NIDDM, GERD, and anxiety. Admitted for extensive bilateral PE with right heart strain and left LE DVT. Now s/p IVC filter, thombolysis and thrombectomy. Left lower extremity DVT --s/p IVC filter on 06/05 --on full dose lovenox Large volume thrombus bilateral pulmonary arteries Severe right ventricular systolic failure Left lower extremity DVT --initial echo on 06/04: intraventricular septum flat with paradoxical motion ; RV severely dilated; RV systolic function severely reduced; RA severely dilated; moderate MR; severe TR; moderate pHTN; mid AI; aortic root calcified and dilated --s/p TPA and thrombectomy 06/04 --s/p IVC filter on 06/05 --post-thrombectomy echo 06/06 improved: LV normal; RV moderately dilated, RV function moderately reduced; mild TR; pHTN --kept on full dose lovenox --will need lifelong anticoagulation, to be discussed with PCP/midwife practitioner when discharged to home Severe right ventricular systolic failure Bilateral lower extremity edema --echo studies as above --lower extremity edema improved with mild diuresis --Lasix PRN Demand ischemia/elevated troponin --troponin peak 3.12, downtrending --likely from PE Coronary artery disease --continue aggrenox Anemia --transfused 1U PRBC on 06/07, Hgb 8.8-->9.8 --h/h stable Hypertension --improved --on no meds J CARLOS --resolved Metastatic prostate cancer --being treated as outpatient with denosumab --MsContin BID for pain management NIDDM --Novolog sliding scale Hypomagnesemia --resolved Hypophosphatemia --repleted Minutes to complete discharge: 35 Discharge Summary Reason For Visit: HYPOTENSION; SUSPECTE PULMONARY EMBOLIS Current Active Problems J CARLOS (acute kidney injury) (Acute) DVT (deep venous thrombosis) (Acute) Diabetes (Acute) Dyspnea (Acute) Hypotension (Acute) Lactic acid acidosis (Acute) Prostate CA (Acute) Prostate cancer metastatic to bone (Acute) Pulmonary embolism (Acute) Suspected pulmonary embolism (Acute) Weakness (Acute) Condition: Improved - Instructions Referrals: Renan Sheth MD [Primary Care Provider] - Disposition: RESIDENTIAL FACILITY - Home Medications Comprehensive Discharge Medication List: Ambulatory Orders Morphine (Avinza) [Avinza] 30 mg PO BID 06/03/17 Pregabalin [Lyrica] 100 mg PO TID 06/03/17 Venlafaxine HCl ER [Effexor Xr -] 75 mg PO DAILY 06/03/17 This patient is new to me today: No Emergency Visit: Yes ED Registration Date: 06/03/17 Care time: The patient presented to the Emergency Department on the above date and was hospitalized for further evaluation of their emergent condition. Critical Care patient: No - Discharge Referral Referred to [facility] Med P.C.: No
--- NOTE | 2017-06-11 10:42 | PN ---
Progress Note, Physician History of Present Illness: PULMONARY ALERT,NAD,SOB -CP,-COUGH - Current Medication List Current Medications: Active Medications Albuterol/Ipratropium (Duoneb -) 1 amp NEB Q4HPO [facility] Last Admin: 06/11/17 09:30 Dose: 1 amp Dipyridamole/Aspirin (Aggrenox -) 1 combo PO BID [facility] Last Admin: 06/11/17 09:29 Dose: 1 combo Docusate Sodium (Colace -) 300 mg PO HS [facility] Last Admin: 06/10/17 22:27 Dose: 300 mg Enoxaparin Sodium (Lovenox -) 80 mg SQ BID [facility] Last Admin: 06/11/17 09:29 Dose: 80 mg IV Flush (Triple Lumen Flush) 4 ml IVPUSH PRN PRN PRN Reason: Protocol IV Flush (Triple Lumen Flush) 4 ml IVPUSH PRN PRN Insulin Aspart (Novolog Vial Sliding Scale -) 1 vial SQ ACHS [facility] PRN Reason: Protocol Last Admin: 06/11/17 06:20 Dose: 2 units Polyethylene Glycol (Miralax (For Daily Use) -) 17 gm PO BID [facility] Last Admin: 06/11/17 09:31 Dose: 17 gm Potassium Phos/Sodium Phos (Phos-Nak Packet -) 1 packet PO BID [facility] Last Admin: 06/11/17 09:32 Dose: 1 packet Pregabalin (Lyrica -) 100 mg PO TID [facility] Last Admin: 06/11/17 06:20 Dose: 100 mg Prochlorperazine Edisylate (Compazine Injection -) 10 mg IVPB Q6H PRN PRN Reason: NAUSEA AND/OR VOMITING Venlafaxine HCl (Effexor Xr -) 75 mg PO DAILY [facility] Last Admin: 06/11/17 09:31 Dose: 75 mg - Objective Vital Signs: Vital Signs Temperature 98.3 F 06/11/17 06:00 Pulse Rate 86 06/11/17 08:25 Respiratory Rate 19 06/11/17 06:00 Blood Pressure 116/56 06/11/17 06:00 O2 Sat by Pulse Oximetry (%) 86 L 06/11/17 08:25 Constitutional: Yes: Well Nourished, Calm Eyes: Yes: WNL HENT: Yes: WNL Neck: Yes: WNL Cardiovascular: Yes: Regular Rate and Rhythm, S1, S2 Respiratory: Yes: CTA Bilaterally Gastrointestinal: Yes: Normal Bowel Sounds, Soft Extremities: Yes: WNL Edema: No Labs: CBC, BMP Problem List - Problems (1) J CARLOS (acute kidney injury) Code(s): N17.9 - ACUTE KIDNEY FAILURE, UNSPECIFIED (2) DVT (deep venous thrombosis) Code(s): I82.409 - ACUTE EMBOLISM AND THOMBOS UNSP DEEP VN UNSP LOWER EXTREMITY Qualifiers: DVT location: lower extremity Affected thrombotic vein of extremity: popliteal Chronicity: acute Laterality: left Qualified Code(s): I82.432 - Acute embolism and thrombosis of left popliteal vein (3) Diabetes Code(s): E11.9 - TYPE 2 DIABETES MELLITUS WITHOUT COMPLICATIONS Qualifiers: Diabetes mellitus type: type 2 Diabetes mellitus complication status: without complication Diabetes mellitus intermission coordinator insulin use: without intermission coordinator use Qualified Code(s): E11.9 - Type 2 diabetes mellitus without complications (4) Dyspnea Code(s): R06.00 - DYSPNEA, UNSPECIFIED Qualifiers: Dyspnea type: dyspnea on exertion Qualified Code(s): R06.09 - Other forms of dyspnea (5) Lactic acid acidosis Code(s): E87.2 - ACIDOSIS (6) Prostate CA Code(s): C61 - MALIGNANT NEOPLASM OF PROSTATE (7) Pulmonary embolism Code(s): I26.99 - OTHER PULMONARY EMBOLISM WITHOUT ACUTE COR PULMONALE Qualifiers: Pulmonary embolism type: saddle Chronicity: acute Acute cor pulmonale presence: with acute cor pulmonale Qualified Code(s): I26.02 - Saddle embolus of pulmonary artery with acute cor pulmonale Assessment/Plan /P Submassive Pulmonary Embolism with RV dysfunction s/p catheter directed thrombectomy/thrombolysis LLE DVT s/p IVC filter +Troponins likely from above Lactic Acidosis resolved Acute Kidney Injury Metastatic Prostate Ca h/o PE DM - LOVENOX - will need life long anticoagulation - O2 to keep Spo2 >90% - needs rehab/PT DR JORGE
[2017-06-11] MEDS ORDERED: FUROSEMIDE 20 MG TABLET (FP) PO ONE (13:26)
--- NOTE | 2017-06-11 13:26 | PN ---
Progress Note, Physician History of Present Illness: Pt seen and examined at bedside. He is awake and alert. He complains of lower extremity edema. He denies chest pain or palpitations. - Current Medication List Current Medications: Active Medications Albuterol/Ipratropium (Duoneb -) 1 amp NEB Q4HPO [facility] Last Admin: 06/11/17 09:30 Dose: 1 amp Dipyridamole/Aspirin (Aggrenox -) 1 combo PO BID [facility] Last Admin: 06/11/17 09:29 Dose: 1 combo Docusate Sodium (Colace -) 300 mg PO HS [facility] Last Admin: 06/10/17 22:27 Dose: 300 mg Enoxaparin Sodium (Lovenox -) 80 mg SQ BID [facility] Last Admin: 06/11/17 09:29 Dose: 80 mg IV Flush (Triple Lumen Flush) 4 ml IVPUSH PRN PRN PRN Reason: Protocol IV Flush (Triple Lumen Flush) 4 ml IVPUSH PRN PRN Insulin Aspart (Novolog Vial Sliding Scale -) 1 vial SQ ACHS [facility] PRN Reason: Protocol Last Admin: 06/11/17 06:20 Dose: 2 units Polyethylene Glycol (Miralax (For Daily Use) -) 17 gm PO BID [facility] Last Admin: 06/11/17 09:31 Dose: 17 gm Potassium Phos/Sodium Phos (Phos-Nak Packet -) 1 packet PO BID [facility] Last Admin: 06/11/17 09:32 Dose: 1 packet Pregabalin (Lyrica -) 100 mg PO TID [facility] Last Admin: 06/11/17 06:20 Dose: 100 mg Prochlorperazine Edisylate (Compazine Injection -) 10 mg IVPB Q6H PRN PRN Reason: NAUSEA AND/OR VOMITING Venlafaxine HCl (Effexor Xr -) 75 mg PO DAILY [facility] Last Admin: 06/11/17 09:31 Dose: 75 mg - Objective Vital Signs: Vital Signs Temperature 97.9 F 06/11/17 10:00 Pulse Rate 86 06/11/17 10:41 Respiratory Rate 18 06/11/17 10:00 Blood Pressure 109/53 06/11/17 10:00 O2 Sat by Pulse Oximetry (%) 98 06/11/17 10:41 Constitutional: Yes: Calm Eyes: Yes: Conjunctiva Clear HENT: Yes: Atraumatic Cardiovascular: Yes: S1, S2 Respiratory: Yes: On Nasal O2 Gastrointestinal: Yes: Soft Genitourinary: Yes: WNL Musculoskeletal: Yes: Muscle Weakness Edema: Yes Edema: LLE: 1+, RLE: 1+ Neurological: Yes: Oriented Psychiatric: Yes: Oriented Labs: CBC, BMP 06/09/17 05:40 06/10/17 07:00 INR, PTT INR 1.30 (0.82-1.09) H D 06/06/17 05:20 Problem List - Problems (1) J CARLOS (acute kidney injury) Code(s): N17.9 - ACUTE KIDNEY FAILURE, UNSPECIFIED (2) Diabetes Code(s): E11.9 - TYPE 2 DIABETES MELLITUS WITHOUT COMPLICATIONS Qualifiers: Diabetes mellitus type: type 2 Diabetes mellitus complication status: without complication Diabetes mellitus senior care insulin use: without senior care use Qualified Code(s): E11.9 - Type 2 diabetes mellitus without complications (3) Hypotension Code(s): I95.9 - HYPOTENSION, UNSPECIFIED Qualifiers: Hypotension type: unspecified hypotension type Qualified Code(s): I95.9 - Hypotension, unspecified (4) Lactic acid acidosis Code(s): E87.2 - ACIDOSIS (5) Prostate cancer metastatic to bone Code(s): C61 - MALIGNANT NEOPLASM OF PROSTATE C79.51 - SECONDARY MALIGNANT NEOPLASM OF BONE (6) Suspected pulmonary embolism Code(s): I26.99 - OTHER PULMONARY EMBOLISM WITHOUT ACUTE COR PULMONALE (7) Weakness Code(s): R53.1 - WEAKNESS Assessment/Plan Current Medications Generic Name Dose Route Start Last Admin Trade Name Sujey PRN Reason Stop Dose Admin Albuterol/Ipratropium 1 amp 06/07/17 18:00 06/11/17 09:30 Duoneb - NEB 1 amp Q4HPO [facility] Administration Dipyridamole/Aspirin 1 combo 06/03/17 22:00 06/11/17 09:29 Aggrenox - PO 1 combo BID [facility] Administration Docusate Sodium 300 mg 06/10/17 22:00 06/10/17 22:27 Colace - PO 300 mg HS [facility] Administration Enoxaparin Sodium 80 mg 06/06/17 22:00 06/11/17 09:29 Lovenox - SQ 80 mg BID [facility] Administration IV Flush 4 ml 06/05/17 10:15 Triple Lumen Flush IVPUSH PRN PRN Protocol IV Flush 4 ml 06/05/17 17:18 Triple Lumen Flush IVPUSH PRN PRN Insulin Aspart 1 vial 06/03/17 16:30 06/11/17 06:20 Novolog Vial Sliding Scale - SQ 2 units ACHS [facility] Administration Protocol Polyethylene Glycol 17 gm 06/10/17 22:00 06/11/17 09:31 Miralax (For Daily Use) - PO 17 gm BID [facility] Administration Potassium Phos/Sodium Phos 1 packet 06/07/17 10:00 06/11/17 09:32 Phos-Nak Packet - PO 1 packet BID [facility] Administration Pregabalin 100 mg 06/03/17 14:00 06/11/17 06:20 Lyrica - PO 100 mg TID [facility] Administration Prochlorperazine Edisylate 10 mg 06/08/17 10:16 Compazine Injection - IVPB Q6H PRN NAUSEA AND/OR VOMITING Venlafaxine HCl 75 mg 06/04/17 10:00 06/11/17 09:31 Effexor Xr - PO 75 mg DAILY [facility] Administration Impression 1. J CARLOS 2. DVT 3. likely PE 4. elevated troponin 5. prostate cancer with mets 6. hypoxia 7. lactic acidosis 8. anemia 9. s/p thrombectomy Plan - cont phos supplements - will give pt a small dose of lasix - repeat labs in am - monitor volume status closely - discussed plan with pt and his - avoid nephrotoxins Dr Hughes
--- NOTE | 2017-06-11 18:17 | EKG ---
Test Reason : Blood Pressure : / mmHG Vent. Rate : 094 BPM Atrial Rate : 094 BPM P-R Int : 248 ms QRS Dur : 108 ms QT Int : 410 ms P-R-T Axes : 078 -32 003 degrees QTc Int : 512 ms POOR DATA QUALITY, INTERPRETATION MAY BE ADVERSELY AFFECTED SUBOPYIMAL STUDY RHYTHM IS UNCERTAIN,ATRIAL FIBRILLATION CANNOT BE EXCLUDED LEFT AXIS DEVIATION T WAVE ABNORMALITY, CONSIDER ANTERIOR ISCHEMIA ABNORMAL ECG WHEN COMPARED WITH ECG OF 04-JUN-2017 09:28, WOULD SUGGEST REPEAT EKG T WAVE INVERSION NOW EVIDENT IN ANTERIOR LEADS NONSPECIFIC T WAVE ABNORMALITY, IMPROVED IN LATERAL LEADS Confirmed by JOS FU MD ([id number] on 06/11/2017 6:16:54 PM Referred By: Confirmed By:JOS FU MD
[2017-06-11] MEDS ORDERED: ACETAMINOPHEN 325 MG TABLET (FP) PO PRN (18:26)
[2017-06-11] MEDS: DOCUSATE SODIUM 100 MG CAPSULE (FP) PO SCH (22:13)
[2017-06-11] MEDS: morphine SO4 SUSTAINED ACTING 30 MG TABLET.SA PO SCH (22:21)
[2017-06-12] MEDS ORDERED: PHENAZOPYRIDINE HCL 100 MG TABLET (FP) PO ONE (00:50)
[2017-06-12] MEDS: ALBUTEROL SO4 2.5/IPRATROPIUM 0.5 INH SOL 3 ML VIAL.NEB. NEB SCH ×4 (02:00→14:20)
[2017-06-12] MEDS: PREGABALIN 50 MG CAPSULE PO SCH ×2 (06:23→13:41)
[2017-06-12] MEDS: INSULIN SLIDING SCALE (NOVOLOG) 1 VIAL SQ SCH ×2 (06:26→11:12)
--- NOTE | 2017-06-12 07:25 | PN ---
Progress Note (short form) - Note Progress Note: Chief Complaint: Events noted, notes reviewed, denies any dyspnea or chest discomfort, unable to sleep last night History of Present Illness: Seen and examined on telemetry. Events noted, notes reviewed, denies any dyspnea or chest discomfort, unable to sleep last night As outlined patient should be A/C indefinitely unless it is absolutely contraindicated, Coumadin vs. NOAC's but if PTE is related to hyper-coagulable state secondary to metastatic prostate carcinoma then Lovenox would be the option, should be discussed with [facility] - Current Medication List Current Medications Acetaminophen (Tylenol -) 650 mg PO Q6H PRN PRN Reason: FEVER OR PAIN Albuterol/Ipratropium (Duoneb -) 1 amp NEB Q4HPO [facility] Last Admin: 06/12/17 05:26 Dose: 1 amp Dipyridamole/Aspirin (Aggrenox -) 1 combo PO BID [facility] Last Admin: 06/11/17 22:21 Dose: 1 combo Docusate Sodium (Colace -) 300 mg PO HS [facility] Last Admin: 06/11/17 22:13 Dose: Not Given Enoxaparin Sodium (Lovenox -) 80 mg SQ BID [facility] Last Admin: 06/11/17 22:24 Dose: 80 mg IV Flush (Triple Lumen Flush) 4 ml IVPUSH PRN PRN PRN Reason: Protocol IV Flush (Triple Lumen Flush) 4 ml IVPUSH PRN PRN Insulin Aspart (Novolog Vial Sliding Scale -) 1 vial SQ ACHS [facility] PRN Reason: Protocol Last Admin: 06/12/17 06:26 Dose: 2 units Morphine Sulfate (Ms Contin -) 30 mg PO BID [facility] Last Admin: 06/11/17 22:21 Dose: 30 mg Polyethylene Glycol (Miralax (For Daily Use) -) 17 gm PO BID [facility] Last Admin: 06/11/17 22:20 Dose: Not Given Potassium Phos/Sodium Phos (Phos-Nak Packet -) 1 packet PO BID [facility] Last Admin: 06/11/17 22:24 Dose: 1 packet Pregabalin (Lyrica -) 100 mg PO TID [facility] Last Admin: 06/12/17 06:23 Dose: 100 mg Prochlorperazine Edisylate (Compazine Injection -) 10 mg IVPB Q6H PRN PRN Reason: NAUSEA AND/OR VOMITING Venlafaxine HCl (Effexor Xr -) 75 mg PO DAILY [facility] Last Admin: 06/11/17 09:31 Dose: 75 mg Review of Systems Constitutional: denies: Chills Cardiovascular: As noted above Respiratory: denies: Cough or Sputum Production Gastrointestinal: denies: Nausea, Vomiting, Diarrhea, Constipation or Abdominal Pain Musculoskeletal: No Symptoms Reported Neurological: denies: Dizziness or Headache - Objective Vital Signs: Last Vital Signs Temp Pulse Resp BP Pulse Ox 97.7 F 92 H 20 118/50 96 06/12/17 02:37 06/12/17 02:37 06/12/17 02:37 06/12/17 02:37 06/11/17 21:00 Intake & Output 06/09/17 06/10/17 06/11/17 06/12/17 23:59 23:59 23:59 23:59 Intake Total 137 995 8662 Output Total 1400 1400 2900 Balance -1050 -1100 -1760 Weight 196 lb 8 oz Neck: Supple Negative JVD No Bruit Cardiovascular: S1 S2 Regular Rate and Rhythm No Murmurs Respiratory: Diminished Breath Sounds at the Bases Gastrointestinal: Soft Benign Normal Bowel Sounds Ext: No Edema Labs: CBC, BMP 06/09/17 05:40 BMP from this AM pending Hepatic Panel Total Bilirubin 0.8 mg/dL (0.2-1.0) D 06/09/17 05:40 AST 31 U/L (15-37) 06/09/17 05:40 ALT 40 U/L (12-78) D 06/09/17 05:40 Alkaline Phosphatase 243 U/L (45-117) H D 06/09/17 05:40 Albumin 1.7 g/dl (3.4-5.0) L 06/09/17 05:40 Assessment/Plan ASSESSMENT: 1. Acute pulmonary thromboembolism with RV strain and hypoxia post catheter directed mechanical thrombectomy and TPA infusion 2. RV dysfunction with severe TR due to above PTE 3. 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 MR/mitral regurgitation, moderate in severity 5. DVT - left popliteal vein post IVC filter insertion 6. History of metastatic prostate carcinoma 7. Acute renal insufficiency, resolved 8. Anemia PLAN: 1. Continue Lovenox and alf A/C to be decided as outlined above, considering his clinical presentation 2. Monitor CBC closely and transfuse as needed to maintain Hg equal or > 8.0 3. Question continuation of Dipyridamole/Aspirin (Aggrenox), consider ASA only ( increase risk of bleed) Sue Parada M.D.
[2017-06-12 08:02] LABS: ALBUMIN 1.9 g/dl (3.4-5.0); ALK PHOS 202 U/L (45-117); ANION GAP 8 (8-16); BILIRUBIN,TOTAL 0.6 mg/dL (0.2-1.0); CALCIUM 8.6 mg/dL (8.5-10.1); CO2 29 mmol/L (21-32); CREATININE 0.8 mg/dL (0.7-1.3); GLUCOSE,RANDOM 159 mg/dL (74-106); MAGNESIUM 1.6 mg/dL (1.8-2.4); PHOSPHOROUS 3.5 mg/dL (2.5-4.9); SGOT/AST 23 U/L (15-37); SGPT/ALT 24 U/L (12-78); TOT PROT 5.6 g/dl (6.4-8.2)
[2017-06-12] MEDS ORDERED: PT OWN MED DRAWER 7, Y5N ONE (09:48)
[2017-06-12] MEDS: morphine SO4 SUSTAINED ACTING 30 MG TABLET.SA PO SCH (09:56)
[2017-06-12] MEDS: VENLAFAXINE HCL 75 MG E.R. CAPSULES (FP) PO SCH (09:56)
[2017-06-12] MEDS: ASPIRIN/DIPYRIDAMOLE 25 MG/200 MG CAPSULE (FP) PO SCH (09:56)
[2017-06-12] MEDS: ENOXAPARIN NA (PORCINE) 80 MG/0.8 ML DISP.SYRIN SQ SCH (09:58)
[2017-06-12] MEDS: NAPH,MB-DB/K PH,MBDB POWDER PACKET PO SCH (09:58)
[2017-06-12] MEDS: POLYETHYLENE GLYCOL 3350 119 GM BTL PO SCH (09:58)
[2017-06-12] MEDS ORDERED: CEFTRIAXONE 1 GM in DEXTROSE 5%-WATER - 50 ML IVPB SCH (10:30)
[2017-06-12 10:38] LABS: URINE APPEARANCE CLOUDY; URINE BILIRUBIN NEGATIVE (NEGATIVE); URINE BLOOD NEGATIVE (NEGATIVE); URINE COLOR AMBER; URINE GLUCOSE (UA) NEGATIVE (NEGATIVE); URINE KETONE NEGATIVE (NEGATIVE); URINE NITRITE POSITIVE (NEGATIVE); URINE PROTEIN NEGATIVE (NEGATIVE)
[2017-06-12 10:40] LABS: URINE LEUK ESTERASE 3+ (NEGATIVE)
[2017-06-12 10:51] LABS: URINE BACTERIA MANY /hpf (NONE SEEN); URINE RBC 2 /hpf (0-3); URINE WBC 81 /hpf (3-5); YEAST MANY
--- NOTE | 2017-06-12 11:08 | PN ---
Progress Note, Physician History of Present Illness: pulmonary alert,comfortable at rest +richardson - Current Medication List Current Medications: Active Medications Acetaminophen (Tylenol -) 650 mg PO Q6H PRN PRN Reason: FEVER OR PAIN Albuterol/Ipratropium (Duoneb -) 1 amp NEB Q4HPO [facility] Last Admin: 06/12/17 09:47 Dose: 1 amp Dipyridamole/Aspirin (Aggrenox -) 1 combo PO BID [facility] Last Admin: 06/12/17 09:56 Dose: 1 combo Docusate Sodium (Colace -) 300 mg PO HS [facility] Last Admin: 06/11/17 22:13 Dose: Not Given Enoxaparin Sodium (Lovenox -) 80 mg SQ BID [facility] Last Admin: 06/12/17 09:58 Dose: 80 mg IV Flush (Triple Lumen Flush) 4 ml IVPUSH PRN PRN PRN Reason: Protocol IV Flush (Triple Lumen Flush) 4 ml IVPUSH PRN PRN Ceftriaxone Sodium 1 gm/ (Dextrose) 50 mls @ 100 mls/hr IVPB DAILY [facility] Insulin Aspart (Novolog Vial Sliding Scale -) 1 vial SQ ACHS [facility] PRN Reason: Protocol Last Admin: 06/12/17 06:26 Dose: 2 units Morphine Sulfate (Ms Contin -) 30 mg PO BID [facility] Last Admin: 06/12/17 09:56 Dose: 30 mg Polyethylene Glycol (Miralax (For Daily Use) -) 17 gm PO BID [facility] Last Admin: 06/12/17 09:58 Dose: Not Given Potassium Phos/Sodium Phos (Phos-Nak Packet -) 1 packet PO BID [facility] Last Admin: 06/12/17 09:58 Dose: 1 packet Pregabalin (Lyrica -) 100 mg PO TID [facility] Last Admin: 06/12/17 06:23 Dose: 100 mg Prochlorperazine Edisylate (Compazine Injection -) 10 mg IVPB Q6H PRN PRN Reason: NAUSEA AND/OR VOMITING Venlafaxine HCl (Effexor Xr -) 75 mg PO DAILY [facility] Last Admin: 06/12/17 09:56 Dose: 75 mg - Objective Vital Signs: Vital Signs Temperature 98.2 F 06/12/17 06:00 Pulse Rate 88 06/12/17 09:47 Respiratory Rate 19 06/12/17 06:00 Blood Pressure 95/50 06/12/17 06:00 O2 Sat by Pulse Oximetry (%) 95 06/12/17 09:47 Constitutional: Yes: Well Nourished, Calm Eyes: Yes: WNL HENT: Yes: WNL Neck: Yes: WNL Cardiovascular: Yes: Regular Rate and Rhythm, S1, S2 Respiratory: Yes: CTA Bilaterally Gastrointestinal: Yes: Normal Bowel Sounds, Soft Extremities: Yes: WNL Edema: No Labs: CBC, BMP 06/09/17 05:40 06/12/17 06:00 INR, PTT INR 1.30 (0.82-1.09) H D 06/06/17 05:20 Problem List - Problems (1) J CARLOS (acute kidney injury) Code(s): N17.9 - ACUTE KIDNEY FAILURE, UNSPECIFIED (2) DVT (deep venous thrombosis) Code(s): I82.409 - ACUTE EMBOLISM AND THOMBOS UNSP DEEP VN UNSP LOWER EXTREMITY Qualifiers: DVT location: lower extremity Affected thrombotic vein of extremity: popliteal Chronicity: acute Laterality: left Qualified Code(s): I82.432 - Acute embolism and thrombosis of left popliteal vein (3) Diabetes Code(s): E11.9 - TYPE 2 DIABETES MELLITUS WITHOUT COMPLICATIONS Qualifiers: Diabetes mellitus type: type 2 Diabetes mellitus complication status: without complication Diabetes mellitus assisted insulin use: without assisted use Qualified Code(s): E11.9 - Type 2 diabetes mellitus without complications (4) Dyspnea Code(s): R06.00 - DYSPNEA, UNSPECIFIED Qualifiers: Dyspnea type: dyspnea on exertion Qualified Code(s): R06.09 - Other forms of dyspnea (5) Lactic acid acidosis Code(s): E87.2 - ACIDOSIS (6) Prostate CA Code(s): C61 - MALIGNANT NEOPLASM OF PROSTATE (7) Pulmonary embolism Code(s): I26.99 - OTHER PULMONARY EMBOLISM WITHOUT ACUTE COR PULMONALE Qualifiers: Pulmonary embolism type: saddle Chronicity: acute Acute cor pulmonale presence: with acute cor pulmonale Qualified Code(s): I26.02 - Saddle embolus of pulmonary artery with acute cor pulmonale Assessment/Plan /P Submassive Pulmonary Embolism with RV dysfunction s/p catheter directed thrombectomy/thrombolysis LLE DVT s/p IVC filter +Troponins likely from above Lactic Acidosis resolved Acute Kidney Injury Metastatic Prostate Ca h/o PE DM - LOVENOX - will need life long anticoagulation - O2 to keep Spo2 >90% - needs rehab/PT - O2 sat t rest and post exercise on ra DR JORGE
[2017-06-12] MEDS ORDERED: cefTRIAXone SODIUM 1 GM VIAL ONE (11:19)
[2017-06-12] MEDS ORDERED: DEXTROSE 5%-WATER - 50 ML IVPB ONE (11:20)
[2017-06-12] MEDS ORDERED: MAGNESIUM SULF 50% (8.12 MEQ/2 ML-1 GM VIAL) IVPB ONE (11:45)
[2017-06-12] MEDS ORDERED: MAGNESIUM OXIDE 400 MG TABLET (FP) PO ONE (13:19)
--- NOTE | 2017-06-12 13:19 | PN ---
Progress Note, Physician History of Present Illness: Pt seen and examined at bedside. He is awake and alert. He denies shortness of breath. He feels that his lower extremity edema is improved. - Current Medication List Current Medications: Active Medications Acetaminophen (Tylenol -) 650 mg PO Q6H PRN PRN Reason: FEVER OR PAIN Albuterol/Ipratropium (Duoneb -) 1 amp NEB Q4HPO [facility] Last Admin: 06/12/17 09:47 Dose: 1 amp Dipyridamole/Aspirin (Aggrenox -) 1 combo PO BID [facility] Last Admin: 06/12/17 09:56 Dose: 1 combo Docusate Sodium (Colace -) 300 mg PO HS [facility] Last Admin: 06/11/17 22:13 Dose: Not Given Enoxaparin Sodium (Lovenox -) 80 mg SQ BID [facility] Last Admin: 06/12/17 09:58 Dose: 80 mg IV Flush (Triple Lumen Flush) 4 ml IVPUSH PRN PRN PRN Reason: Protocol IV Flush (Triple Lumen Flush) 4 ml IVPUSH PRN PRN Ceftriaxone Sodium 1 gm/ (Dextrose) 50 mls @ 100 mls/hr IVPB DAILY [facility] Last Admin: 06/12/17 11:35 Dose: 100 mls/hr Insulin Aspart (Novolog Vial Sliding Scale -) 1 vial SQ ACHS [facility] PRN Reason: Protocol Last Admin: 06/12/17 11:12 Dose: Not Given Morphine Sulfate (Ms Contin -) 30 mg PO BID [facility] Last Admin: 06/12/17 09:56 Dose: 30 mg Polyethylene Glycol (Miralax (For Daily Use) -) 17 gm PO BID [facility] Last Admin: 06/12/17 09:58 Dose: Not Given Potassium Phos/Sodium Phos (Phos-Nak Packet -) 1 packet PO BID [facility] Last Admin: 06/12/17 09:58 Dose: 1 packet Pregabalin (Lyrica -) 100 mg PO TID [facility] Last Admin: 06/12/17 06:23 Dose: 100 mg Prochlorperazine Edisylate (Compazine Injection -) 10 mg IVPB Q6H PRN PRN Reason: NAUSEA AND/OR VOMITING Venlafaxine HCl (Effexor Xr -) 75 mg PO DAILY [facility] Last Admin: 06/12/17 09:56 Dose: 75 mg - Objective Vital Signs: Vital Signs Temperature 98.2 F 06/12/17 06:00 Pulse Rate 88 06/12/17 09:47 Respiratory Rate 19 06/12/17 06:00 Blood Pressure 95/50 06/12/17 06:00 O2 Sat by Pulse Oximetry (%) 95 06/12/17 09:47 Constitutional: Yes: Calm Eyes: Yes: Conjunctiva Clear HENT: Yes: Atraumatic Neck: Yes: Supple Cardiovascular: Yes: S1, S2 Respiratory: Yes: On Nasal O2 Genitourinary: Yes: WNL Musculoskeletal: Yes: Muscle Weakness Edema: No Neurological: Yes: Oriented Psychiatric: Yes: Oriented Labs: CBC, BMP 06/09/17 05:40 06/12/17 06:00 INR, PTT INR 1.30 (0.82-1.09) H D 06/06/17 05:20 Problem List - Problems (1) J CARLOS (acute kidney injury) Code(s): N17.9 - ACUTE KIDNEY FAILURE, UNSPECIFIED (2) Diabetes Code(s): E11.9 - TYPE 2 DIABETES MELLITUS WITHOUT COMPLICATIONS Qualifiers: Diabetes mellitus type: type 2 Diabetes mellitus complication status: without complication Diabetes mellitus fci insulin use: without termite technician use Qualified Code(s): E11.9 - Type 2 diabetes mellitus without complications (3) Hypotension Code(s): I95.9 - HYPOTENSION, UNSPECIFIED Qualifiers: Hypotension type: unspecified hypotension type Qualified Code(s): I95.9 - Hypotension, unspecified (4) Lactic acid acidosis Code(s): E87.2 - ACIDOSIS (5) Prostate cancer metastatic to bone Code(s): C61 - MALIGNANT NEOPLASM OF PROSTATE C79.51 - SECONDARY MALIGNANT NEOPLASM OF BONE (6) Suspected pulmonary embolism Code(s): I26.99 - OTHER PULMONARY EMBOLISM WITHOUT ACUTE COR PULMONALE (7) Weakness Code(s): R53.1 - WEAKNESS Assessment/Plan Current Medications Generic Name Dose Route Start Last Admin Trade Name Freq PRN Reason Stop Dose Admin Acetaminophen 650 mg 06/11/17 18:26 Tylenol - PO Q6H PRN FEVER OR PAIN Albuterol/Ipratropium 1 amp 06/07/17 18:00 06/12/17 09:47 Duoneb - NEB 1 amp Q4HPO [facility] Administration Dipyridamole/Aspirin 1 combo 06/03/17 22:00 06/12/17 09:56 Aggrenox - PO 1 combo BID [facility] Administration Docusate Sodium 300 mg 06/10/17 22:00 06/11/17 22:13 Colace - PO Not Given HS [facility] Enoxaparin Sodium 80 mg 06/06/17 22:00 06/12/17 09:58 Lovenox - SQ 80 mg BID [facility] Administration IV Flush 4 ml 06/05/17 10:15 Triple Lumen Flush IVPUSH PRN PRN Protocol IV Flush 4 ml 06/05/17 17:18 Triple Lumen Flush IVPUSH PRN PRN Ceftriaxone Sodium 1 gm/ 50 mls @ 100 mls/hr 06/12/17 10:30 06/12/17 11:35 Dextrose IVPB 100 mls/hr DAILY [facility] Administration Insulin Aspart 1 vial 06/03/17 16:30 06/12/17 11:12 Novolog Vial Sliding Scale - SQ Not Given ACHS [facility] Protocol Morphine Sulfate 30 mg 06/11/17 22:00 06/12/17 09:56 Ms Contin - PO 30 mg BID [facility] Administration Polyethylene Glycol 17 gm 06/10/17 22:00 06/12/17 09:58 Miralax (For Daily Use) - PO Not Given BID [facility] Potassium Phos/Sodium Phos 1 packet 06/07/17 10:00 06/12/17 09:58 Phos-Nak Packet - PO 1 packet BID [facility] Administration Pregabalin 100 mg 06/03/17 14:00 06/12/17 06:23 Lyrica - PO 100 mg TID [facility] Administration Prochlorperazine Edisylate 10 mg 06/08/17 10:16 Compazine Injection - IVPB Q6H PRN NAUSEA AND/OR VOMITING Venlafaxine HCl 75 mg 06/04/17 10:00 06/12/17 09:56 Effexor Xr - PO 75 mg DAILY [facility] Administration Laboratory Tests 06/12/17 06:00 Magnesium 1.6 L Impression 1. J CARLOS 2. DVT 3. likely PE 4. elevated troponin 5. prostate cancer with mets 6. hypoxia 7. lactic acidosis 8. anemia 9. s/p thrombectomy Plan - volume status is improved - will hold off lasix - cont rehab/pt - replace mag - monitor volume status closely - avoid nephrotoxins Dr Hughes
[2017-06-12 14:28] VITALS: BP 122/65; PULSE 80; TEMP 98.5
--- NOTE | 2017-06-15 07:24 | HOSP ---
Physical Examination Vital Signs: Vital Signs Temperature 98.5 F 06/12/17 14:27 Pulse Rate 80 06/12/17 14:27 Respiratory Rate 20 06/12/17 10:00 Blood Pressure 122/65 06/12/17 14:27 O2 Sat by Pulse Oximetry (%) 96 06/12/17 10:00 Labs: CBC, BMP 06/09/17 05:40 06/12/17 06:00 Hospitalist Encounter Assessment: Yesterday received call from [facility] reporting urine culture + ESBL with [phone] colonies Spoke to Saundra Guerrero RN @ [facility] and informed her of same RN asked that I fax her the microbiology report Assured me that they will administer the IV antibiotics to the patient at [facility] As per RN, no need to transfer patient back to [place].
== END 2017-06-12 16:14 | DRG 163 ==
LOC: FER 08:53 → JICU 15:35 → J4W 06-08 19:47
PROVIDERS: ADMIT Internal Medicine; ATTEND Nurse Practitioner Acute Care
PROC: 02CR3ZZ Extirpation of Matter from Left Pulmonary Artery, Percutaneous Approach (ICD-10-PCS; 2017-06-04)
PROC: 02CQ3ZZ Extirpation of Matter from Right Pulmonary Artery, Percutaneous Approach (ICD-10-PCS; 2017-06-04)
PROC: B31TZZZ Fluoroscopy of Left Pulmonary Artery (ICD-10-PCS; 2017-06-04)
PROC: B31SZZZ Fluoroscopy of Right Pulmonary Artery (ICD-10-PCS; 2017-06-04)
PROC: 06H03DZ Insertion of Intraluminal Device into Inferior Vena Cava, Percutaneous Approach (ICD-10-PCS; principal; 2017-06-05)
PROC: 3E05317 Introduction of Other Thrombolytic into Peripheral Artery, Percutaneous Approach (ICD-10-PCS; 2017-06-05)
PROC: 3E05317 Introduction of Other Thrombolytic into Peripheral Artery, Percutaneous Approach (ICD-10-PCS; 2017-06-05)
PROC: 30233N1 Transfusion of Nonautologous Red Blood Cells into Peripheral Vein, Percutaneous Approach (ICD-10-PCS; 2017-06-07)
DX: I26.92 Saddle embolus of pulmonary artery without acute cor pulmonale (principal); J96.01 Acute respiratory failure with hypoxia; N17.9 Acute kidney failure, unspecified; C79.51 Secondary malignant neoplasm of bone; E87.2 Acidosis; I82.432 Acute embolism and thrombosis of left popliteal vein; I24.8 Other forms of acute ischemic heart disease; F41.8 Other specified anxiety disorders; I95.89 Other hypotension; I10 Essential (primary) hypertension; K21.9 Gastro-esophageal reflux disease without esophagitis; E11.9 Type 2 diabetes mellitus without complications; C61 Malignant neoplasm of prostate; R74.8 Abnormal levels of other serum enzymes; E86.0 Dehydration; N28.1 Cyst of kidney, acquired; D64.9 Anemia, unspecified; E83.51 Hypocalcemia; E83.39 Other disorders of phosphorus metabolism; I08.1 Rheumatic disorders of both mitral and tricuspid valves; I27.2 Other secondary pulmonary hypertension; I25.10 Atherosclerotic heart disease of native coronary artery without angina pectoris; E83.42 Hypomagnesemia; E88.09 Other disorders of plasma-protein metabolism, not elsewhere classified; E87.5 Hyperkalemia; Z87.891 Personal history of nicotine dependence
CPT/HCPCS: 36415; 36430; 36556; 37187; 37191; 37212; 61651; 71010-TC; 71260-TC; 75743-TC; 75746-TC; 76700-TC; 76775-TC; 76856-TC; 76937-TC; 77001-TC; 80048; 80053; 81003; 81015; 82272; 82436; 82553; 82570; 82803; 82977; 83036; 83605; 83735; 83880; 84100; 84133; 84153; 84156; 84300; 84443; 84484; 85025; 85610; 85730; 86850; 86900; 86901; 86922; 87040; 87086; 87186; 93005; 93010; 93306-TC; 93970-TC; 94640; 94761; 97116-GP; 97161-GP; 99285-25; C1751; C1752; C1769; C1880; C1887; C1894; C9999; J1644; J2997; P9038; P9058

== ENCOUNTER 2017-10-22 08:04 | Inpatient (IN) | payer OTHER ==
--- NOTE | 2017-10-22 08:11 | PDOC ---
History of Present Illness - General History Source: Patient Exam Limitations: No Limitations - History of Present Illness Initial Comments: 10/22/17 08:17 Pt is an 87y M hx of metastatic prostate CA, hx of PE (s/p filter, on lovenox 80mg BID), DM, recent dx of clincal flu BIBEMS from home for complaint of generalized weakness. notes that he has been having a cold/flu like symptoms since 10/10, anad other members at a [facility] had similar symptoms - he has been coughing and evaluated by dr. Mireles a few times - startinga round 2 days ago, the noticed he was feeling much more weaker, having difficulty ambulating up his stairs and getting out of his couch. that was the reason that prompted his to call EMS. Pt does note some body aches without focality pt dnies any fever, chest pain, abd pain, leg swelling, hemoptysis On arrival, pt noted hypoxic to 90% on RA, slightly tachy with temp of 99 10/22/17 09:14 <Montrell North - Last Filed: 10/22/17 10:01> <Nohemi Burrows S - Last Filed: 10/22/17 18:26> - General Chief Complaint: Altered Mental Status Stated Complaint: WEAK,AMS, HX FLU Time Seen by Provider: 10/22/17 08:06 Past History - Past Medical History Anemia: No Asthma: No Cancer: No (PROSTATE WITH METS TO SPINE) Cardiac Disorders: No CVA: No COPD: Yes (PE many years ago) CHF: No Dementia: No Diabetes: Yes (TYPE I) GI Disorders: No Disorders: No HTN: No Hypercholesterolemia: No Liver Disease: No Psychiatric Problems: Yes (ANXIETY) Seizures: No Thyroid Disease: No - Surgical History Abdominal Surgery: Yes (ABD ADHESIONS) Appendectomy: Yes Cardiac Surgery: No Cholecystectomy: No Lung Surgery: No Neurologic Surgery: No Orthopedic Surgery: Yes (SEVERAL BACK SXS, LAST 03/2016) - Suicide/Smoking/Psychosocial Hx Smoking Status: No Smoking History: Former smoker Have you smoked in the past 12 months: No Number of Cigarettes Smoked Daily: 0 If you are a former smoker, when did you quit?: 1984 Hx Alcohol Use: Yes (COCKTAIL X1 DAILY) Drug/Substance Use Hx: No Substance Use Type: None Hx Substance Use Treatment: No <Montrell North - Last Filed: 10/22/17 10:01> <LancealexisNohemi bowens S - Last Filed: 10/22/17 18:26> - Past Medical History Allergies/Adverse Reactions: Allergies Allergy/AdvReac Type Severity Reaction Status Date / Time No Known Drug Allergies Allergy Verified 06/03/17 08:54 Home Medications: Ambulatory Orders Morphine (Avinza) [Avinza] 60 mg PO BID 06/03/17 Pregabalin [Lyrica] 150 mg PO TID 06/03/17 Ascorbate Calcium [Vitamin C] 500 mg PO DAILY 10/22/17 Calcium Carbonate [Calcium] 500 mg PO DAILY 10/22/17 Docusate Sodium [Colace] 300 mg PO HS 10/22/17 Enoxaparin Sodium [Lovenox] 80 mg SQ BID 10/22/17 Polyethylene Glycol 3350 [Miralax (For Daily Use) -] 17 gm PO DAILY 10/22/17 Review of Systems - Review of Systems Able to Perform ROS?: Yes Comments:: 10/22/17 09:08 Constitutional - +generalized weakness no reported Fever, Chills, HEENT: no reported vision changes, sore throat Respiratory: +cough, no reported sob, hemoptysis Cardiac: no reported chest pain, palpitations, light headedness, leg swelling Abd/GI: no reported abd pain, nausea, vomiting, blood per rectum, melena, diarrhea : no reported dysuria, frequency, discharge Musculskelatal - no reported back pain, joint swelling skin - no reported bruising, erythema, rash neurological: no reported headache, numbness, focal weakness, tingling, ataxia, hematologic: no reported anemia, easy bruising, easy bleeding <Montrell North - Last Filed: 10/22/17 10:01> *Physical Exam - Physical Exam Comments: 10/22/17 09:09 GENERAL: The patient is awake, alert, and oriented x 2, Nontoxic - in no acute distress, generally weak appearing HEAD: Normocephalic, atraumatic. EYES: extraocular movements intact, sclera anicteric, conjunctiva clear. ENT: Normal voice, Moist mucous membranes. NECK: Normal range of motion, supple LUNGS: rhonchi b/l with rales in L base, speakin gin complete sentences HEART: tachcyardic BACk: tenderness to mid thoracic region midline ABDOMEN: Soft, nontender, normoactive bowel sounds. No guarding, no rebound. . No CVA tenderness EXTREMITIES: Normal range of motion, no edema. No clubbing or cyanosis. No cords, erythema, or tenderness. NEUROLOGICAL: No facial assymetry, Normal speech, PSYCH: Normal mood, normal affect. SKIN: Warm, Dry, normal turgor, <Montrell North - Last Filed: 10/22/17 10:01> - Vital Signs Last Vital Signs Temp Pulse Resp BP Pulse Ox 101.9 F H 84 21 96/48 100 10/22/17 09:50 10/22/17 11:49 10/22/17 11:49 10/22/17 11:49 10/22/17 11:49 <Nohemi Burrows S - Last Filed: 10/22/17 18:26> Heart Score/ECG Review - ECG Impressions Comment:: 10/22/17 08:20 Twelve-lead EKG was performed and reviewed by me. Accelerated junctional rhthm rate of 102 left axid deviation <Montrell North - Last Filed: 10/22/17 10:01> ED Treatment Course - LABORATORY CBC & Chemistry Diagram: 10/22/17 08:44 10/22/17 08:44 <Montrell North - Last Filed: 10/22/17 10:01> - LABORATORY CBC & Chemistry Diagram: 10/22/17 08:44 10/22/17 08:44 - ADDITIONAL ORDERS Additional order review: Laboratory Results 10/22/17 10/22/17 10/22/17 10:08 08:44 08:44 PT with INR INR PTT (Actin FS) VBG pH POC VBG pCO2 POC VBG pO2 Mixed VBG HCO3 Sodium Potassium Chloride Carbon Dioxide Anion Gap BUN Creatinine Creat Clearance w eGFR Random Glucose Lactic Acid Calcium Total Bilirubin AST ALT Alkaline Phosphatase B-Natriuretic Peptide 3610.50 H Total Protein Albumin Urine Color Yellow Urine Appearance Clear Urine pH 6.5 Ur Specific [place] 1.015 Urine Protein 2+ H Urine Glucose (UA) Negative Urine Ketones Negative Urine Blood Trace-intact H Urine Nitrite Negative Urine Bilirubin Negative Urine Urobilinogen 0.2 Urine RBC 0-2 Urine WBC 1-2 Ur Epithelial Cells None seen Urine Bacteria None seen Blood Type A NEGATIVE Antibody Screen Negative 10/22/17 10/22/17 10/22/17 08:44 08:44 08:44 PT with INR INR PTT (Actin FS) VBG pH 7.37 POC VBG pCO2 42.1 POC VBG pO2 46.7 Mixed VBG HCO3 23.8 Sodium 135 L Potassium 5.2 H Chloride 105 Carbon Dioxide 24 Anion Gap 6 L BUN 25 H D Creatinine 1.2 D Creat Clearance w eGFR 57.54 Random Glucose 156 H D Lactic Acid 1.4 Calcium 8.0 L Total Bilirubin 0.5 D AST 26 ALT 13 Alkaline Phosphatase 182 H D B-Natriuretic Peptide Total Protein 6.6 Albumin 2.8 L D Urine Color Urine Appearance Urine pH Ur Specific [place] Urine Protein Urine Glucose (UA) Urine Ketones Urine Blood Urine Nitrite Urine Bilirubin Urine Urobilinogen Urine RBC Urine WBC Ur Epithelial Cells Urine Bacteria Blood Type Antibody Screen 10/22/17 08:44 PT with INR 13.8 H INR 1.24 H PTT (Actin FS) 36.1 D VBG pH POC VBG pCO2 POC VBG pO2 Mixed VBG HCO3 Sodium Potassium Chloride Carbon Dioxide Anion Gap BUN Creatinine Creat Clearance w eGFR Random Glucose Lactic Acid Calcium Total Bilirubin AST ALT Alkaline Phosphatase B-Natriuretic Peptide Total Protein Albumin Urine Color Urine Appearance Urine pH Ur Specific [place] Urine Protein Urine Glucose (UA) Urine Ketones Urine Blood Urine Nitrite Urine Bilirubin Urine Urobilinogen Urine RBC Urine WBC Ur Epithelial Cells Urine Bacteria Blood Type Antibody Screen 10/22/17 09:10 Influenza Types A,B Antigen (TONNY) - Final Nasopharyngeal Swab - Final 10/22/17 08:44 RBC 3.23 L MCV 96.8 H MCHC 33.4 RDW 15.3 MPV 8.8 Neutrophils % 79.3 D Lymphocytes % 7.3 L D Monocytes % 12.3 H Eosinophils % 0.4 D Basophils % 0.7 - Medications Given in the ED: ED Medications Discontinued Medications Generic Name Dose Route Start Last Admin Trade Name Freq PRN Reason Stop Dose Admin Sodium Chloride 1,000 mls @ 1,000 mls/hr 10/22/17 08:14 10/22/17 08:35 Normal Saline - IV 10/22/17 09:13 1,000 mls/hr ASDIR STA Administration Azithromycin 500 mg/ Dextrose 250 mls @ 250 mls/hr 10/22/17 09:42 10/22/17 10 :50 IVPB 10/22/17 10:41 250 mls/hr ONCE ONE Administration Ceftriaxone Sodium 1 gm/ 50 mls @ 100 mls/hr 10/22/17 09:41 10/22/17 10:16 Dextrose IVPB 10/22/17 10:10 100 mls/hr ONCE ONE Administration <LoidaNohemi bowens S - Last Filed: 10/22/17 18:26> Medical Decision Making - Medical Decision Making 10/22/17 09:14 Pt is an 87y M hx of metastatic prostate CA, hx of PE (s/p filter, on lovenox 80mg BID), DM, recent dx of clincal flu presents from home with generalized weakness in setting of cough for approximately 2 weeks without noted fever at home. All the patient was noted to be mildly hypotensive, slightly tachycardic, hypoxic to 90% on room air. His examination reveals rhonchi bilaterally with mild rales at the left base. Differential for patient's symptoms include pneumonia, influenza will obtain cxr, xray of his thoracic spine will obtain flu swab septic workup pt given fluids for hydration anticipate admission PMD: [place] pt placed on supplemental O2 (2L) with improvement of o2 sat to 95-96% 10/22/17 09:56 lab reviewed cxr without significant infiltrate but clinically suspect suprainfection w/ pna awaiting ct head and tspine xray case dw dr. salazar regarding admission for fur[facility] rmanagement pt started on ctx and azithro for clinical pna Case discussed in detail with admitting physician including history, physical exam and ancillary studies. Admitting physician has assumed care for the patient, will follow all pending diagnostics and will complete the evaluation and treatment. CRITICAL CARE DOCUMENTATION: I spent ~35 minutes of Critical Care time, excluding separately billable procedures, involving high complexity decision making to assess, manipulate and support vital system function(s) to treat single or multiple vital organ system failure and/or to prevent further life threatening deterioration of the patient' s condition. 10/22/17 10:00 <Montrell North - Last Filed: 10/22/17 10:01> - Critical Care Time Total Critical Care Time (minutes): 30 Critical Care Statement: The care of this patient involved high complexity decision making to prevent further life threatening deterioration of the patient 's condition and/or to evaluate & treat vital organ system(s) failure or risk of failure. - Medical Decision Making 10/22/17 11:55 Impresion: CHF exacerbation, hypotension, metastatic CA of prostate Discussed with Dr Shanks Foreign [employer] Clerk and Dr Salazar , hospitalist [facility] <Nohemi Burrows - Last Filed: 10/22/17 18:26> *DC/Admit/Observation/Transfer - Discharge Dispostion Admit: Yes <Montrell North - Last Filed: 10/22/17 10:01> - Discharge Dispostion Admit: Yes <Nohemi Burrows - Last Filed: 10/22/17 18:26> Diagnosis at time of Disposition: CHF (congestive heart failure), NYHA class II Qualifiers: Congestive heart failure type: diastolic Congestive heart failure chronicity: unspecified Qualified Code(s): I50.30 - Unspecified diastolic (congestive) heart failure Hypotension Qualifiers: Hypotension type: other hypotension type Qualified Code(s): I95.89 - Other hypotension - Discharge Dispostion Condition at time of disposition: Guarded
[2017-10-22] MEDS ORDERED: SODIUM CHLORIDE 1,000 ML IV STA (08:14)
[2017-10-22 09:17] LABS: ACTIVATED PTT 36.1 SECONDS (24.0-38.9)
[2017-10-22 09:19] LABS: ALBUMIN 2.8 g/dl (3.5-5.0); ALK PHOS 182 U/L (32-92); ANION GAP 6 (8-16); BILIRUBIN,TOTAL 0.5 mg/dl (0.2-1.0); BLOOD UREA NITROGEN 25 mg/dl (7-18); CHLORIDE 105 mmol/L (98-107); CO2 24 mmol/L (22-28); CREATININE 1.2 mg/dl (0.6-1.3); GLUCOSE,RANDOM 156 mg/dl (74-106); POTASSIUM 5.2 mmol/L (3.5-5.1); SGOT/AST 26 U/L (10-42); SGPT/ALT 13 U/L (10-40); SODIUM 135 mmol/L (136-145); TOT PROT 6.6 g/dl (6.4-8.3)
[2017-10-22 09:22] LABS: INR 1.24 (0.82-1.09); PROTHROMBIN TIME (PATIENT) 13.8 SEC (10.2-13.0)
[2017-10-22 09:25] LABS: BASO % 0.7 % (0-2.0); EOS % 0.4 % (0-4.5); HEMATOCRIT 31.3 % (35.4-49); HEMOGLOBIN 10.4 GM/dl (11.7-16.9); LYMPH % 7.3 % (8-40); MCH 32.3 pg (25.7-33.7); MCHC 33.4 g/dl (32.0-35.9); MEAN CELL VOLUME 96.8 fl (80-96); MEAN PLT VOLUME 8.8 fl (7.5-11.1); MONO % 12.3 % (3.8-10.2); NEUT % 79.3 % (42.8-82.8); PLATELET COUNT 246 K/MM3 (134-434); RBC 3.23 M/mm3 (4.00-5.60); RDW 15.3 % (11.9-15.9); WHITE BLOOD COUNT 9.8 K/mm3 (4.0-10.8)
[2017-10-22] MEDS ORDERED: CEFTRIAXONE 1 GM in DEXTROSE 5%-WATER - 50 ML IVPB ONE (09:41)
[2017-10-22] MEDS ORDERED: AZITHROMYCIN IVPB 500 MG in DEXTROSE 5%-WATER - 250 ML IVPB ONE (09:42)
[2017-10-22 10:05] LABS: VENOUS PC02 42.1 mmHg (38-52); VENOUS PH 7.37 (7.32-7.42); VENOUS PO2 46.7 mmHg (28-48)
[2017-10-22] MEDS ORDERED: cefTRIAXone SODIUM 1 GM VIAL ONE (10:15)
[2017-10-22] MEDS ORDERED: AZITHROMYCIN 500 MG VIAL IVPB ONE (10:15)
[2017-10-22 10:17] LABS: PH,URINE 6.5 (4.5-8); URINE APPEARANCE Clear; URINE BILIRUBIN Negative (NEGATIVE); URINE GLUCOSE (UA) Negative (NEGATIVE); URINE KETONE Negative (NEGATIVE); URINE NITRITE Negative (NEGATIVE); URINE UROBILINOGEN 0.2 (0.2-1.0)
[2017-10-22 10:27] LABS: URINE BLOOD Trace-intact (NEGATIVE); URINE COLOR YELLOW; URINE PROTEIN 2+ (NEGATIVE)
[2017-10-22] MEDS ORDERED: SODIUM CHLORIDE 0.9% 1000 ML INFUS.BAG IV STA (10:30)
[2017-10-22 11:37] LABS: EPI CELLS NONE SEEN /HPF; URINE RBC 0-2 /hpf (0-3)
[2017-10-22 11:38] LABS: URINE BACTERIA NONE SEEN /hpf (NEGATIVE)
[2017-10-22] MEDS ORDERED: ACETAMINOPHEN 1000 MG/100 ML VIAL (NON FORMULARY) IVPB ONE (11:52)
[2017-10-22] MEDS ORDERED: ACETAMINOPHEN INJECTION 100 ML IVPB ONE (11:53)
--- NOTE | 2017-10-22 13:06 | HP ---
CHIEF COMPLAINT: fever and hypotension PCP: Dr Sheth HISTORY OF PRESENT ILLNESS: Patient is a 87y/o male with a past medical history of metastatic prostate Ca, pulmonary embolism (s/p ivc filter, lovenox), DM, SBO. at bedside, reports ongoing cough since 10/10/17. Patient was diagnosed by his primary care physician, Dr Sheth and diagnosed with influenza as per . patient received xgeval 2 days ago. reports ongoing weakness and the inability to ambulate with worsening cough for the past 24 hours as a result, she contact ems and was brought to the emergency department. ER course was notable for: (1) upon arrival to the ED spo2 90%, rectal temp 101.9 (2) chest xray no evidence of pna or chf (3) b/p 80/43 Recent Travel: none PAST MEDICAL HISTORY: see hp PAST SURGICAL HISTORY: thoracic and lumbar spine surgery Social History: retired, resides at home with Smoking: none Alcohol:none Drugs: none Family History: non contributory to this admission Allergies No Known Drug Allergies Allergy (Verified 06/03/17 08:54) HOME MEDICATIONS: Home Medications Medication Instructions Recorded Morphine (Avinza) [Avinza] 60 mg PO BID 06/03/17 Pregabalin [Lyrica] 150 mg PO TID 06/03/17 Ascorbate Calcium [Vitamin C] 500 mg PO DAILY 10/22/17 Calcium Carbonate [Calcium] 500 mg PO DAILY 10/22/17 Docusate Sodium [Colace] 300 mg PO HS 10/22/17 Enoxaparin Sodium [Lovenox] 80 mg SQ BID 10/22/17 Polyethylene Glycol 3350 [Miralax 17 gm PO DAILY 10/22/17 (For Daily Use) -] REVIEW OF SYSTEMS CONSTITUTIONAL: present: generalized weakness, malaise, loss of appetite, Absent: fever, chills, diaphoresis, weight change HEENT: Absent: rhinorrhea, nasal congestion, throat pain, throat swelling, difficulty swallowing, mouth swelling, ear pain, eye pain, visual changes CARDIOVASCULAR: Absent: chest pain, syncope, palpitations, irregular heart rate, lightheadedness , peripheral edema RESPIRATORY: present: : cough Absent: shortness of breath, dyspnea with exertion, orthopnea, wheezing, stridor, hemoptysis GASTROINTESTINAL: Absent: abdominal pain, abdominal distension, nausea, vomiting, diarrhea, constipation, melena, hematochezia GENITOURINARY: Absent: dysuria, frequency, urgency, hesitancy, hematuria, flank pain, genital pain MUSCULOSKELETAL: Absent: myalgia, arthralgia, joint swelling, back pain, neck pain SKIN: Absent: rash, itching, pallor HEMATOLOGIC/IMMUNOLOGIC: Absent: easy bleeding, easy bruising, lymphadenopathy, frequent infections ENDOCRINE: Absent: unexplained weight gain, unexplained weight loss, heat intolerance, cold intolerance NEUROLOGIC: Absent: headache, focal weakness or paresthesias, dizziness, unsteady gait, seizure, mental status changes, bladder or bowel incontinence PSYCHIATRIC: Absent: anxiety, depression, suicidal or homicidal ideation, hallucinations. PHYSICAL EXAMINATION Vital Signs - 24 hr 10/22/17 10/22/17 10/22/17 08:06 08:15 09:50 Temperature 99.5 F 101.9 F H Pulse Rate 105 H 95 H Pulse Rate [ 96 H 95 H Left] Respiratory 20 20 18 Rate Blood Pressure 97/51 97/50 Blood Pressure 91/45 97/50 [Right Arm] O2 Sat by Pulse 90 L 95 100 Oximetry (%) 10/22/17 10/22/17 10/22/17 10:30 10:49 11:25 Temperature Pulse Rate Pulse Rate [ 92 H 86 85 Left] Respiratory 22 22 17 Rate Blood Pressure Blood Pressure 73/33 94/51 84/44 [Right Arm] O2 Sat by Pulse 100 100 98 Oximetry (%) 10/22/17 10/22/17 11:49 12:09 Temperature Pulse Rate Pulse Rate [ 84 81 Left] Respiratory 21 20 Rate Blood Pressure Blood Pressure 96/48 80/43 [Right Arm] O2 Sat by Pulse 100 100 Oximetry (%) GENERAL: Awake, alert, and oriented times person and place, lethargic. HEAD: Normal with no signs of trauma. EYES: Pupils equal, round and reactive to light, extraocular movements intact, sclera anicteric, conjunctiva clear. No lid lag. EARS, NOSE, THROAT: Ears normal, nares patent, oropharynx clear without exudates. Moist mucous membranes. NECK: Normal range of motion, supple without lymphadenopathy, JVD, or masses. LUNGS: Breath sounds equal, course rhonchi bilaterally throughout, No wheezes, and bilateral crackles to bases, No accessory muscle use. HEART: Regular rate and rhythm, normal S1 and S2 without murmur, rub or gallop. ABDOMEN: Soft, nontender, not distended, normoactive bowel sounds, no guarding, no rebound, no masses. No hepatomegaly or splenomegaly. MUSCULOSKELETAL: Normal range of motion at all joints. No bony deformities or tenderness. No CVA tenderness. UPPER EXTREMITIES: 2+ pulses, warm, well-perfused. No cyanosis. No clubbing. No peripheral edema. LOWER EXTREMITIES: 2+ pulses, warm, well-perfused. No calf tenderness. left lower extremity +2, right lower extremity +1 NEUROLOGICAL: Cranial nerves II-XII intact. Normal speech. Normal gait. PSYCHIATRIC: Cooperative. Good eye contact. Appropriate mood and affect. SKIN: Warm, dry, normal turgor, no rashes or lesions noted, normal capillary refill. Laboratory Results - last 24 hr 10/22/17 10/22/17 10/22/17 08:44 08:44 08:44 WBC 9.8 D RBC 3.23 L Hgb 10.4 L D Hct 31.3 L MCV 96.8 H MCH 32.3 MCHC 33.4 RDW 15.3 Plt Count 246 D MPV 8.8 Neutrophils % 79.3 D Lymphocytes % 7.3 L D Monocytes % 12.3 H Eosinophils % 0.4 D Basophils % 0.7 PT with INR 13.8 H INR 1.24 H PTT (Actin FS) 36.1 D VBG pH 7.37 POC VBG pCO2 42.1 POC VBG pO2 46.7 Mixed VBG HCO3 23.8 Sodium Potassium Chloride Carbon Dioxide Anion Gap BUN Creatinine Creat Clearance w eGFR Random Glucose Lactic Acid Calcium Total Bilirubin AST ALT Alkaline Phosphatase B-Natriuretic Peptide Total Protein Albumin Urine Color Urine Appearance Urine pH Ur Specific [place] Urine Protein Urine Glucose (UA) Urine Ketones Urine Blood Urine Nitrite Urine Bilirubin Urine Urobilinogen Urine RBC Urine WBC Ur Epithelial Cells Urine Bacteria Blood Type Antibody Screen 10/22/17 10/22/17 10/22/17 08:44 08:44 08:44 WBC RBC Hgb Hct MCV MCH MCHC RDW Plt Count MPV Neutrophils % Lymphocytes % Monocytes % Eosinophils % Basophils % PT with INR INR PTT (Actin FS) VBG pH POC VBG pCO2 POC VBG pO2 Mixed VBG HCO3 Sodium 135 L Potassium 5.2 H Chloride 105 Carbon Dioxide 24 Anion Gap 6 L BUN 25 H D Creatinine 1.2 D Creat Clearance w eGFR 57.54 Random Glucose 156 H D Lactic Acid 1.4 Calcium 8.0 L Total Bilirubin 0.5 D AST 26 ALT 13 Alkaline Phosphatase 182 H D B-Natriuretic Peptide Total Protein 6.6 Albumin 2.8 L D Urine Color Urine Appearance Urine pH Ur Specific [place] Urine Protein Urine Glucose (UA) Urine Ketones Urine Blood Urine Nitrite Urine Bilirubin Urine Urobilinogen Urine RBC Urine WBC Ur Epithelial Cells Urine Bacteria Blood Type A NEGATIVE Antibody Screen Negative 10/22/17 10/22/17 08:44 10:08 WBC RBC Hgb Hct MCV MCH MCHC RDW Plt Count MPV Neutrophils % Lymphocytes % Monocytes % Eosinophils % Basophils % PT with INR INR PTT (Actin FS) VBG pH POC VBG pCO2 POC VBG pO2 Mixed VBG HCO3 Sodium Potassium Chloride Carbon Dioxide Anion Gap BUN Creatinine Creat Clearance w eGFR Random Glucose Lactic Acid Calcium Total Bilirubin AST ALT Alkaline Phosphatase B-Natriuretic Peptide 3610.50 H Total Protein Albumin Urine Color Yellow Urine Appearance Clear Urine pH 6.5 Ur Specific [place] 1.015 Urine Protein 2+ H Urine Glucose (UA) Negative Urine Ketones Negative Urine Blood Trace-intact H Urine Nitrite Negative Urine Bilirubin Negative Urine Urobilinogen 0.2 Urine RBC 0-2 Urine WBC 1-2 Ur Epithelial Cells None seen Urine Bacteria None seen Blood Type Antibody Screen ASSESSMENT/PLAN: F/E/N - regular diet - replete lytes prn ppx - lovenox - scd - pepcid dispo: lengthy discussion with , Vanessa Gonzalez, requesting patient to remain a full code, agrees to transfer to the ICU for further management FULL CODE Problem List - Problem (1) 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 Code(s): C61 - MALIGNANT NEOPLASM OF PROSTATE (2) CHF (congestive heart failure), NYHA class II Assessment/Plan: - elevated BNP, pt appear hypvovolemic on exam, close monitoring of I & O, echo ordered Code(s): I50.9 - HEART FAILURE, UNSPECIFIED Qualifiers: Congestive heart failure type: diastolic Congestive heart failure chronicity: unspecified Qualified Code(s): I50.30 - Unspecified diastolic ( congestive) heart failure (3) Hypotension Assessment/Plan: -secondary to septic shock, start dopamine gtt, monitor b/p every hour, transfer to ICU, patient accepted to ICU as per ED attending. Code(s): I95.9 - HYPOTENSION, UNSPECIFIED Qualifiers: Hypotension type: other hypotension type Qualified Code(s): I95.89 - Other hypotension (4) Sepsis Assessment/Plan: - tmax 101.9, follow up blood and urine cultures, chest xray, negative for infilitrates, however, crackles noted on exam, continue rocephin and zithromax, serial chest xrays, appreciate ID input (Daljit). follow WBC and fever trend. Code(s): A41.9 - SEPSIS, UNSPECIFIED ORGANISM (5) Elevated troponin Assessment/Plan: - first troponin 1.2, pending 2nd and 3rd, secondary to ischemic demand - continue cardiac monitoring, pending echo, appreciate cardiology input Code(s): R74.8 - ABNORMAL LEVELS OF OTHER SERUM ENZYMES (6) Pulmonary embolism Assessment/Plan: - continue lovenox home dose Code(s): I26.99 - OTHER PULMONARY EMBOLISM WITHOUT ACUTE COR PULMONALE Qualifiers: Chronicity: chronic Visit type - Emergency Visit Emergency Visit: Yes ED Registration Date: 10/22/17 Care time: The patient presented to the Emergency Department on the above date and was hospitalized for further evaluation of their emergent condition. - New Patient This patient is new to me today: Yes Date on this admission: 10/22/17 - Critical Care Critical Care patient: Yes Total Critical Care Time (in minutes): 45 Critical Care Statement: The care of this patient involved high complexity decision making to prevent further life threatening deterioration of the patient 's condition and/or to evaluate & treat vital organ system(s) failure or risk of failure.
[2017-10-22] MEDS ORDERED: DENOSUMAB 120 MG SQ SCH (13:15)
[2017-10-22] MEDS: DOPAMINE 400 MG/D5W - 400,000 MCG/250 ML INFUS.BAG IVPB SCH (13:44)
[2017-10-22] MEDS ORDERED: DOPAMINE 400 MG/D5W - 400,000 MCG/250 ML INFUS.BAG IVPB SCH (13:45)
[2017-10-22] MEDS ORDERED: PREGABALIN 100 MG CAPSULE PO SCH (14:00)
[2017-10-22 16:48] LABS: TROPONIN I (DFP) < 0.03 ng/ml (0.03-0.50)
[2017-10-22 20:40] VITALS: BMI 23.5
--- NOTE | 2017-10-22 20:41 | CONSULT ---
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 As per report and patient he was diagnosed with the flu in early de with residual cough which worsened over the previous day. At [place] pt with low grade fever, tachycardic and hypotensive SBP 90's, O2 sat 90% on room air. He was started on dopamine drip with improvement in BP and NC O2 2L for O2 support. Labs notable for WBC 9.8, Lactate 1.2, BNP 3610. CXR showed no e/o congestion or consolidation. He was started on Azithro and Ceftriaxone as empiric CAP coverage and transferred to [facility] ICU for further management Rec'd A+O x2, BP 130/70 off Dopamine, HR 89, O2 sat 98% on 2L NC. Has coarse upper airway cough. Unable to expectorate phlegm BS diminished at base. C/o pain and discomfort with urination. Antibiotics continued. Dry mucosa and tenting skin but reported (by son and pt) normal po intake over past few days. Denies chest pain, syncope, N/V/d. Flu swab and urine culture pending. - History Source History Provided By: Patient, Family Member - Past Medical History Cardio/Vascular: Yes: HTN Pulmonary: Yes: Pulmonary Embolus (25 years ago) Gastrointestinal: Yes: GERD Renal/: Yes: Cancer - Alcohol/Substance Use Hx Alcohol Use: Yes (COCKTAIL X1 DAILY) - Smoking History Smoking history: Former smoker Have you smoked in the past 12 months: No Aproximately how many cigarettes per day: 0 If you are a former smoker, when did you quit?: 1984 - Social History Usual Living Arrangement: With Spouse ADL: Independent History of Recent Travel: No Home Medications - Allergies Allergies/Adverse Reactions: Allergies Allergy/AdvReac Type Severity Reaction Status Date / Time No Known Drug Allergies Allergy Verified 06/03/17 08:54 - Home Medications Home Medications: Ambulatory Orders Morphine (Avinza) [Avinza] 60 mg PO BID 06/03/17 Pregabalin [Lyrica] 150 mg PO TID 06/03/17 Ascorbate Calcium [Vitamin C] 500 mg PO DAILY 10/22/17 Calcium Carbonate [Calcium] 500 mg PO DAILY 10/22/17 Docusate Sodium [Colace] 300 mg PO HS 10/22/17 Enoxaparin Sodium [Lovenox] 80 mg SQ BID 10/22/17 Polyethylene Glycol 3350 [Miralax (For Daily Use) -] 17 gm PO DAILY 10/22/17 Family Disease History - Family Disease History Family History: Unremarkable Review of Systems - Review of Systems Constitutional: reports: Weakness Eyes: reports: No Symptoms HENT: reports: No Symptoms Neck: reports: No Symptoms Cardiovascular: reports: No Symptoms Respiratory: reports: Cough Gastrointestinal: reports: No Symptoms Genitourinary: reports: Burning Musculoskeletal: reports: No Symptoms Integumentary: reports: No Symptoms Neurological: reports: Confusion Endocrine: reports: No Symptoms Hematology/Lymphatic: reports: Easily Bruised Psychiatric: reports: No Symptoms Physical Exam Vital Signs: Vital Signs Temperature 99.3 F 10/22/17 17:34 Pulse Rate 85 10/22/17 18:41 Respiratory Rate 20 10/22/17 18:41 Blood Pressure 106/47 10/22/17 18:41 O2 Sat by Pulse Oximetry (%) 98 10/22/17 18:41 Constitutional: Yes: No Distress, Calm Eyes: Yes: WNL HENT: Yes: Atraumatic, Normocephalic, Other (dry mucosa) Neck: Yes: Supple Cardiovascular: Yes: Regular Rate and Rhythm, Tachycardia, S1, S2 Respiratory: Yes: CTA Bilaterally Gastrointestinal: Yes: Soft Renal/: Yes: Other (condom cath in place) Edema: No Peripheral Pulses WNL: Yes Neurological: Yes: Alert, Oriented (Periods of confusion), Confusion Psychiatric: Yes: Alert Labs: CBC, BMP 10/22/17 08:44 10/22/17 08:44 CBC,CMP WBC 9.8 K/mm3 (4.0-10.8) D 10/22/17 08:44 RBC 3.23 M/mm3 (4.00-5.60) L 10/22/17 08:44 Hgb 10.4 GM/dl (11.7-16.9) L D 10/22/17 08:44 Hct 31.3 % (35.4-49) L 10/22/17 08:44 MCV 96.8 fl (80-96) H 10/22/17 08:44 MCH 32.3 pg (25.7-33.7) 10/22/17 08:44 MCHC 33.4 g/dl (32.0-35.9) 10/22/17 08:44 RDW 15.3 % (11.9-15.9) 10/22/17 08:44 Plt Count 246 K/MM3 (134-434) D 10/22/17 08:44 MPV 8.8 fl (7.5-11.1) 10/22/17 08:44 Neutrophils % 79.3 % (42.8-82.8) D 10/22/17 08:44 Lymphocytes % 7.3 % (8-40) L D 10/22/17 08:44 Monocytes % 12.3 % (3.8-10.2) H 10/22/17 08:44 Eosinophils % 0.4 % (0-4.5) D 10/22/17 08:44 Basophils % 0.7 % (0-2.0) 10/22/17 08:44 Sodium 135 mmol/L (136-145) L 10/22/17 08:44 Potassium 5.2 mmol/L (3.5-5.1) H 10/22/17 08:44 Chloride 105 mmol/L (98-107) 10/22/17 08:44 Carbon Dioxide 24 mmol/L (22-28) 10/22/17 08:44 Anion Gap 6 (8-16) L 10/22/17 08:44 BUN 25 mg/dl (7-18) H D 10/22/17 08:44 Creatinine 1.2 mg/dl (0.6-1.3) D 10/22/17 08:44 Creat Clearance w eGFR 57.54 (>60) 10/22/17 08:44 Random Glucose 156 mg/dl (74-106) H D 10/22/17 08:44 Lactic Acid 1.2 mmol/L (0.0-2.0) 10/22/17 11:24 Calcium 8.0 mg/dl (8.4-10.2) L 10/22/17 08:44 Total Bilirubin 0.5 mg/dl (0.2-1.0) D 10/22/17 08:44 AST 26 U/L (10-42) 10/22/17 08:44 ALT 13 U/L (10-40) 10/22/17 08:44 Alkaline Phosphatase 182 U/L (32-92) H D 10/22/17 08:44 Creatine Kinase 19 IU/L (39-308) L 10/22/17 16:06 Troponin I < 0.03 ng/ml (0.03-0.50) L D 10/22/17 16:06 B-Natriuretic Peptide 3610.50 pg/ml (5-450) H 10/22/17 08:44 Total Protein 6.6 g/dl (6.4-8.3) 10/22/17 08:44 Albumin 2.8 g/dl (3.5-5.0) L D 10/22/17 08:44 Vital Signs Period Temp Pulse Resp BP Sys/Kim Pulse Ox Last 24 Hr 99.3 F-101.9 F 71-105 17-24 68-131/33-82 90-100 Current Medications Ascorbic Acid (Vitamin C -) 500 mg PO DAILY [facility] Calcium Carbonate (Os-Jamar 500mg -) 500 mg PO DAILY [facility] Chlorhexidine Gluconate (Hibiclens For Decolonization -) 1 applic TP HS [facility] Dipyridamole/Aspirin (Aggrenox -) 1 combo PO BID [facility] Docusate Sodium (Colace -) 300 mg PO HS [facility] Enoxaparin Sodium (Lovenox -) 80 mg SQ BID [facility] Dopamine HCl/Dextrose (Dopamine 400 Mg/D5w -) 400,000 mcg in 250 mls @ 14.458 mls/hr IVPB TITR MANNY; 5 MCG/KG/MIN PRN Reason: Protocol Last Titration: 10/22/17 15:32 Dose: 7 mcg/kg/min, 20.242 mls/hr Sodium Chloride (Normal Saline -) 1,000 mls @ 75 mls/hr IV ASDIR MANNY Azithromycin 500 mg/ Dextrose 250 mls @ 250 mls/hr IVPB DAILY [facility] CEFTRIAXONE 1 G/50 ML PREMIX (Ceftriaxone 1 Gm-D5w Bag) 50 mls @ 100 mls/hr IVPB DAILY [facility] Morphine Sulfate (Ms Contin -) 60 mg PO BID [facility] Mupirocin (Bactroban Ointment (For Decolonization) -) 1 applic NS BID [facility] Stop: 10/27/17 21:59 Non-Formulary Medication (Denosumab) 120 mg SQ Q30D [facility] Pantoprazole Sodium (Protonix -) 40 mg PO DAILY [facility] Polyethylene Glycol (Miralax (For Daily Use) -) 17 gm PO DAILY [facility] Pregabalin (Lyrica -) 150 mg PO TID [facility] Venlafaxine HCl (Effexor Xr -) 75 mg PO DAILY MANNY Intake & Output 10/19/17 10/20/17 10/21/17 10/22/17 23:59 23:59 23:59 23:59 Intake Total 1950 Output Total 330 Balance 1620 Weight 78.744 kg Imaging - Results Chest X-ray: Report Reviewed Cat Scan: Report Reviewed (Thoracic spine changes noted) Problem List - Problems (1) CHF (congestive heart failure), NYHA class II Code(s): I50.9 - HEART FAILURE, UNSPECIFIED Qualifiers: Congestive heart failure type: diastolic Congestive heart failure chronicity: unspecified Qualified Code(s): I50.30 - Unspecified diastolic ( congestive) heart failure (2) Hypotension Code(s): I95.9 - HYPOTENSION, UNSPECIFIED Qualifiers: Hypotension type: other hypotension type Qualified Code(s): I95.89 - Other hypotension (3) Primary prostate cancer with metastasis from prostate to other site Code(s): C61 - MALIGNANT NEOPLASM OF PROSTATE (4) Pulmonary embolism Code(s): I26.99 - OTHER PULMONARY EMBOLISM WITHOUT ACUTE COR PULMONALE Qualifiers: Chronicity: chronic (5) Sepsis Code(s): A41.9 - SEPSIS, UNSPECIFIED ORGANISM (6) Weakness Code(s): R53.1 - WEAKNESS Assessment/Plan 87yom with PMHx of metastatic prostate Ca on denosumab, PE (s/p IVC filter, lovenox), DM, SBO recently diagnosed with flu who was BIBEMS to [place] with progressive weakness, cough and confusion, required Dopamine drip for hypotension. Transferred to ICU with sepsis and hypoxic respiratory deficiency 2/2 to possible superimposed bacterial PNA +/- worsening PE +/-UTI. Plan: Resp/ID: Immunosuppressed, Hypoxic resp deficiency -Cont NC O2 support as needed for O2 sat 92% -Pulm toilet and NT suction prn -Obtain sputum specimen -Cont Azithro and Ceftriaxone empirically -F/u cxls, and viral swab -Cont Lovenox for PE CV: Hypotension m/l sepsis -Fluid bolus -Dopamine drip prn as needed for MAP>60 -Monitor trop and lactate -Monitor UOP GI -Clears -Cont PPI -Bowel regimen -DVT Proph Evie King, ACNP CC time 35mins
[2017-10-22] MEDS ORDERED: MORPHINE 60 MG PO SCH (22:00)
[2017-10-22] MEDS: morphine SO4 SUSTAINED ACTING 30 MG TABLET.SA PO SCH (22:13)
[2017-10-22] MEDS: PREGABALIN 50 MG CAPSULE PO SCH (22:13)
[2017-10-22] MEDS: CHLORHEXIDINE GLUCONATE 4% CLEANSER FOR DECOLONIZATION TP SCH (22:14)
[2017-10-22] MEDS: ENOXAPARIN NA (PORCINE) 80 MG/0.8 ML DISP.SYRIN SQ SCH (22:15)
[2017-10-22] MEDS: DOCUSATE SODIUM 100 MG CAPSULE (FP) PO SCH (22:15)
[2017-10-22] MEDS: MUPIROCIN 2% TOPICAL OINTMENT FOR DECOLONIZATION NS SCH (22:16)
[2017-10-22] MEDS: ASPIRIN/DIPYRIDAMOLE 25 MG/200 MG CAPSULE (FP) PO SCH (22:53)
--- NOTE | 2017-10-22 23:02 | HOSP ---
Subjective - Review of Symptoms Events since last encounter: Pt transferred from [facility] to [facility] ICU. Subjective: Pt reports continued SOB, but it is improved. His biggest concern is that he is unable to bring up any phlegm despite moist cough. He is now off dopamine, maintaining SBP>100, MAP currently 65. Physical Examination Vital Signs: Vital Signs Temperature 100.6 F H 10/22/17 20:23 Pulse Rate 92 H 10/22/17 20:23 Respiratory Rate 24 10/22/17 21:00 Blood Pressure 131/62 10/22/17 20:23 O2 Sat by Pulse Oximetry (%) 98 10/22/17 21:00 Eyes: Yes: Conjunctiva Clear Neck: Yes: Supple Cardiovascular: Yes: Regular Rate and Rhythm Respiratory: Yes: Other (scattered rhonchi and wheezes, diminished at bases) Gastrointestinal: Yes: Normal Bowel Sounds, Soft. No: Tenderness Edema: No Peripheral Pulses WNL: Yes Labs: CBC, BMP 10/22/17 08:44 10/22/17 08:44 Hospitalist Encounter Assessment: 87yom with PMHx of metastatic prostate Ca on denosumab, PE (s/p IVC filter, lovenox), DM, SBO recently diagnosed with flu by PCP who was BIBEMS to [facility] with progressive weakness, cough and confusion, required Dopamine drip for hypotension. Transferred to ICU with sepsis. sepsis, treating for PNA - cont ceftriaxone and zithromax IVPB - consider CT chest if lungs not improving. 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 consider downgrade to tele in am if BP remains stable overnight. Critical Care Total Critical Care Time (in minutes): 35 Critical Care Statement: The care of this patient involved high complexity decision making to prevent further life threatening deterioration of the patient 's condition and/or to evaluate & treat vital organ system(s) failure or risk of failure.
[2017-10-23 06:29] LABS: BASO % 0.1 % (0-2.0); EOS % 0.2 % (0-4.5); HEMATOCRIT 27.7 % (35.4-49); HEMOGLOBIN 9.2 GM/dL (11.7-16.9); LYMPH % 7.7 % (8-40); MCH 32.2 pg (25.7-33.7); MCHC 33.1 g/dl (32.0-35.9); MEAN CELL VOLUME 97.2 fl (80-96); MEAN PLT VOLUME 8.4 fl (7.5-11.1); MONO % 14.4 % (3.8-10.2); NEUT % 77.6 % (42.8-82.8); PLATELET COUNT 234 K/MM3 (134-434); RBC 2.85 M/mm3 (4.00-5.60); RDW 15.8 % (11.9-15.9); WHITE BLOOD COUNT 9.9 K/mm3 (4.0-10.0)
[2017-10-23] MEDS: SODIUM CHLORIDE 1,000 ML IV SCH ×2 (06:29→17:03)
[2017-10-23] MEDS: INSULIN SLIDING SCALE (NOVOLOG) 1 VIAL SQ SCH ×4 (06:30→23:13)
[2017-10-23] MEDS: PREGABALIN 50 MG CAPSULE PO SCH ×4 (06:35→22:07)
[2017-10-23] MEDS: guaiFENesin 200 MG/10 ML 10 ML UNIT-DOSE CUPS PO SCH ×5 (06:36→23:13)
[2017-10-23 07:08] LABS: ALBUMIN 2.2 g/dl (3.4-5.0); CHLORIDE 111 mmol/L (98-107); POTASSIUM 4.5 mmol/L (3.5-5.1); SODIUM 144 mmol/L (136-145)
[2017-10-23 07:11] LABS: ALK PHOS 179 U/L (45-117); ANION GAP 9 (8-16); BILIRUBIN,TOTAL 0.3 mg/dL (0.2-1.0); BLOOD UREA NITROGEN 21 mg/dL (7-18); CALCIUM 7.5 mg/dL (8.5-10.1); CO2 24 mmol/L (21-32); CREATININE 1.2 mg/dL (0.7-1.3); GLUCOSE,RANDOM 100 mg/dL (74-106); SGOT/AST 24 U/L (15-37); SGPT/ALT 13 U/L (12-78); TOT PROT 6.2 g/dl (6.4-8.2)
--- NOTE | 2017-10-23 07:55 | PN ---
Progress Note, Physician Chief Complaint: ID Full note dictated Metastatic prostate cancer on a monoclonal for bone mets presents with fever confusion hypotension. Reportedly flu like symptoms per the notes since Oct [address] Sheth. Febrile here Currently NAD Confused but no dementia diagnosis by history per the who says he gets confused in the hospital historically. Empiric therapy Ceftriaxone Azithromcyin. Apparently his also ill as well as others who attended a part about Oct 10 ( all recovering). - Current Medication List Current Medications: Active Medications Ascorbic Acid (Vitamin C -) 500 mg PO DAILY [facility] Calcium Carbonate (Os-Jamar 500mg -) 500 mg PO DAILY [facility] Chlorhexidine Gluconate (Hibiclens For Decolonization -) 1 applic TP HS [facility] Last Admin: 10/22/17 22:14 Dose: 1 applic Dipyridamole/Aspirin (Aggrenox -) 1 combo PO BID [facility] Last Admin: 10/22/17 22:53 Dose: 1 combo Docusate Sodium (Colace -) 300 mg PO HS [facility] Last Admin: 10/22/17 22:15 Dose: 300 mg Enoxaparin Sodium (Lovenox -) 80 mg SQ BID [facility] Last Admin: 10/22/17 22:15 Dose: 80 mg Guaifenesin (Robitussin -) 10 ml PO Q6HPO [facility] Last Admin: 10/23/17 06:36 Dose: 10 ml Dopamine HCl/Dextrose (Dopamine 400 Mg/D5w -) 400,000 mcg in 250 mls @ 14.458 mls/hr IVPB TITR MANNY; 5 MCG/KG/MIN PRN Reason: Protocol Last Titration: 10/22/17 15:32 Dose: 7 mcg/kg/min, 20.242 mls/hr Sodium Chloride (Normal Saline -) 1,000 mls @ 75 mls/hr IV ASDIR [facility] Last Admin: 10/23/17 06:29 Dose: Not Given Azithromycin 500 mg/ Dextrose 250 mls @ 250 mls/hr IVPB DAILY [facility] CEFTRIAXONE 1 G/50 ML PREMIX (Ceftriaxone 1 Gm-D5w Bag) 50 mls @ 100 mls/hr IVPB DAILY [facility] Insulin Aspart (Novolog Vial Sliding Scale -) 1 vial SQ HS MANNY PRN Reason: Protocol Insulin Aspart (Novolog Vial Sliding Scale -) 1 vial SQ TIDAC MANNY PRN Reason: Protocol Last Admin: 10/23/17 06:30 Dose: Not Given Morphine Sulfate (Ms Contin -) 60 mg PO BID [facility] Last Admin: 10/22/17 22:13 Dose: 60 mg Mupirocin (Bactroban Ointment (For Decolonization) -) 1 applic NS BID [facility] Stop: 10/27/17 21:59 Last Admin: 10/22/17 22:16 Dose: 1 applic Non-Formulary Medication (Denosumab) 120 mg SQ Q30D [facility] Pantoprazole Sodium (Protonix -) 40 mg PO DAILY [facility] Polyethylene Glycol (Miralax (For Daily Use) -) 17 gm PO DAILY [facility] Pregabalin (Lyrica -) 150 mg PO TID [facility] Last Admin: 10/23/17 06:35 Dose: 150 mg Venlafaxine HCl (Effexor Xr -) 75 mg PO DAILY [facility] - Objective Vital Signs: Vital Signs Temperature 98.2 F 10/23/17 06:00 Pulse Rate 93 H 10/23/17 06:36 Respiratory Rate 27 H 10/23/17 06:00 Blood Pressure 128/47 10/23/17 06:00 O2 Sat by Pulse Oximetry (%) 95 10/23/17 06:36 Constitutional: Yes: Well Nourished, No Distress HENT: Yes: WNL, Atraumatic Neck: Yes: WNL, Supple Cardiovascular: Yes: Regular Rate and Rhythm, S1, S2 Respiratory: Yes: WNL, Regular, CTA Bilaterally. No: Rales, Rhonchi Gastrointestinal: Yes: WNL, Normal Bowel Sounds, Soft. No: Tenderness Edema: No Labs: CBC, BMP 10/23/17 05:10 10/23/17 05:10 INR, PTT INR 1.24 (0.82-1.09) H 10/22/17 08:44 Problem List - Problems (1) Acute bronchitis Code(s): J20.9 - ACUTE BRONCHITIS, UNSPECIFIED (2) Primary prostate cancer with metastasis from prostate to other site Code(s): C61 - MALIGNANT NEOPLASM OF PROSTATE (3) Pulmonary embolism Code(s): I26.99 - OTHER PULMONARY EMBOLISM WITHOUT ACUTE COR PULMONALE Qualifiers: Chronicity: chronic Assessment/Plan Microbiology 10/22/17 09:10 Nasopharyngeal Swab Influenza Types A,B Antigen (TONNY) - Final 10/22/17 09:10 Nasopharyngeal Swab - Final Laboratory Tests 10/22/17 10/23/17 10/23/17 16:06 05:10 05:10 WBC 9.9 D Hgb 9.2 L Hct 27.7 L Plt Count 234 BUN 21 H D AST 24 ALT 13 D Alkaline Phosphatase 179 H Troponin I < 0.03 L D 10/23/17 05:10 WBC Hgb Hct Plt Count BUN AST ALT Alkaline Phosphatase Troponin I < 0.02 D Elderly male metastatic prostate cancer recieving a monoclonal for prostate Cancer may have upper respiratory illness possible influenza certainly sick enough. His prostate treatment may predispose to infection including influenza. NO obvious PNA History of ESBL in urine jun 2017 but negative twice in half-way. Plan Treat for influenza Oseltamavir 75mg bid despite neg Influenza screen Ceftriaxone for empiric respiratory coverage Spoke to at length See no reason for Azithromcyin at this point Critical care time spent 40 minutes Amrita THOMAS
[2017-10-23] MEDS ORDERED: NAPH,MB-DB/K PH,MBDB POWDER PACKET PO ONE (08:15)
--- NOTE | 2017-10-23 09:09 | CONS ---
DATE OF CONSULTATION: DATE OF DICTATION: 10/23/2017 INFECTIOUS DISEASE CONSULTATION HISTORY OF PRESENT ILLNESS: This is an 87-year-old male with a known history o metastatic prostate cancer who I am asked to see for evaluation of fever. The patient is followed by an oncologist at [facility] and apparently has been receiving a monoclonal chemotherapy for bone metastasis related to prostate cancer. He also has a history of pulmonary embolism, status post Lovenox and IVC filter, diabetes, and prior small bowel obstruction. According to his , he is under the care of who had recently seen him for some respiratory complaints. The notes that he too had had a recent respiratory illness along with several other people who attended a republic[employer] together over a week ago. At the present time, the patient isalert, though he himself notes that he is confused. His states that he has no prior diagnosis of mental confusion or dementia but that he does become confused on occasions when he has been admitted to the hospital in the past. In June, he had been treated for a urinary tract infection with an ESBL organism. Subsequently,he was sent to a alf where 2 subsequent urine cultures were no growth. He is admitted now with fever to almost 102, cough, confusion, hypotension, andtransient hypoxemia. He was empirically treated for possible pneumonia with ceftriaxone and azithromycin. At the current time, he has a dry cough but denies any shortness of breath, headaches, neck pain, abdominal pain,or urinary complaints. PAST MEDICAL HISTORY: As noted above. SOCIAL HISTORY: . Lives with his . No history of smoking or alcohol use. FAMILY HISTORY: Reviewed and noncontributory. REVIEW OF SYSTEMS: Respiratory: Recent onset of a dry cough. Cardiac: No chest pain, palpitations, syncope. Gastrointestinal: No abdominal pain, nausea, vomiting, diarrhea. Genitourinary: History of metastatic prostate cancer. Denies dysuria or hematuria. Neuromuscular: No history of headaches, visual complaints, neck pain, joint pains. PHYSICAL EXAMINATION: General: He was a pleasant elderly male, alert, in no acute distress. Vital Signs: T-max 101.9, currently, however, temperature is 98.2, pulse 93, blood pressure 128/47, respirations 27, O2 saturation 95%, not wearing an oxygen mask. Neck: Supple without adenopathy. Lungs: Clear to percussion and auscultation. Heart: S1, S2. Regular rhythm without audible murmur. Abdomen: Soft, nontender without hepatosplenomegaly, guarding, or rebound. Extremities: No clubbing, cyanosis, or edema. LABORATORY DATA: The white count was 9.8 with a hemoglobin of 10.4, platelets of 246, with a normal differential blood count. INR 1.24. BUN 21, creatinine 1.2. Alkaline phosphatase 179. Troponin less than 0.03. Urinalysis 0 RBCs, 1-2 WBCs. Blood cultures, urine culture pending. Influenza screening test negative. Chest x-ray was reviewed, shows no evidence of acute infiltrate. ASSESSMENT AND PLAN: An 87-year-old male with history of metastatic prostate cancer receiving chemotherapy with a monoclonal antibody which may predispose to infection including influenza. Given the respiratory complaints and high fever, I would treat him for the flu. He is diabetic which, of course along with his age, would increase his risk for severe infection. Would empirically treat him with oseltamivir despite the negative flu screen. He has had an ESBL in the past, but apparently, this has cleared on 2 prior urine cultures. Would empirically treat him for upper respiratory bacterial pathogens including Streptococcus pneumoniae with ceftriaxone. All of my findings were discussed at length with the . Critical care time spent today 40 minutes. WALE BRYSON M.D. [place]/[id number] MTDD
[2017-10-23] MEDS ORDERED: AZITHROMYCIN IVPB 500 MG in DEXTROSE 5%-WATER - 250 ML IVPB SCH (10:00)
[2017-10-23] MEDS: CEFTRIAXONE 1 G/50 ML PREMIX 50 ML IVPB SCH (10:00)
[2017-10-23] MEDS ORDERED: PATIENT'S OWN MEDICATION (NON-FORMULARY) (Ascorbate Calcium [Vitamin C] 500 MG) PO SCH (10:00)
[2017-10-23] MEDS ORDERED: PANTOPRAZOLE 40 MG TABLET (FP) PO SCH (10:00)
[2017-10-23] MEDS: CALCIUM (OYSTER SHELL) 500 MG TABLET (FP) PO SCH (11:00)
[2017-10-23] MEDS: VENLAFAXINE HCL 75 MG E.R. CAPSULES (FP) PO SCH (11:00)
[2017-10-23] MEDS: POLYETHYLENE GLYCOL 3350 119 GM BTL PO SCH (11:00)
[2017-10-23] MEDS: OSELTAMIVIR PHOSPHATE 75 MG CAPSULE PO SCH ×2 (11:07→23:13)
[2017-10-23] MEDS: ASCORBIC ACID 500 MG TABLET (FP) PO SCH (11:10)
[2017-10-23] MEDS: ENOXAPARIN NA (PORCINE) 80 MG/0.8 ML DISP.SYRIN SQ SCH ×2 (11:10→22:07)
[2017-10-23] MEDS: morphine SO4 SUSTAINED ACTING 30 MG TABLET.SA PO SCH ×2 (11:10→22:07)
[2017-10-23] MEDS: MUPIROCIN 2% TOPICAL OINTMENT FOR DECOLONIZATION NS SCH ×2 (11:11→22:08)
[2017-10-23] MEDS: ASPIRIN/DIPYRIDAMOLE 25 MG/200 MG CAPSULE (FP) PO SCH ×2 (11:12→22:30)
--- NOTE | 2017-10-23 11:40 | PN ---
Physical Exam: SUBJECTIVE: Patient seen and examined. He is feeling much better today, just complaining of cough. He denies fever, chills, chest pain. OBJECTIVE: Vital Signs Period Temp Pulse Resp BP Sys/Kim Pulse Ox Last 24 Hr 98.2 F-100.6 F 71-98 17-27 68-131/36-82 95-100 GENERAL: The patient is awake, alert, and fully oriented, in no acute distress. HEAD: Normal with no signs of trauma. EYES: extraocular movements intact, sclera anicteric, conjunctiva clear ENT: oropharynx clear without exudates, erythema, moist mucous membranes NECK: trachea midline, full range of motion, supple. LUNGS: occasional rhales, no wheezes, no crackles, no accessory muscle use. HEART: regular rate and rhythm, S1, S2 without murmur, rub or gallop. ABDOMEN: soft, nontender, nondistended, normoactive bowel sounds, no guarding, no rebound, no hepatosplenomegaly EXTREMITIES: 2+ pulses, warm, no edema. NEUROLOGICAL: Normal speech, no facial asymmetry, gait not observed. PSYCH: Normal mood, normal affect. SKIN: Warm, dry, normal turgor, no rashes or lesions noted Laboratory Results - last 24 hr 10/22/17 10/22/17 10/22/17 08:44 11:24 16:06 WBC RBC Hgb Hct MCV MCH MCHC RDW Plt Count MPV Neutrophils % Lymphocytes % Monocytes % Eosinophils % Basophils % Sodium Potassium Chloride Carbon Dioxide Anion Gap BUN Creatinine Creat Clearance w eGFR Random Glucose Lactic Acid 1.2 Calcium Phosphorus Magnesium Total Bilirubin AST ALT Alkaline Phosphatase Creatine Kinase 26 L 19 L Troponin I 1.27 H* < 0.03 L D Total Protein Albumin 10/23/17 10/23/17 10/23/17 05:10 05:10 05:10 WBC 9.9 D RBC 2.85 L Hgb 9.2 L Hct 27.7 L MCV 97.2 H MCH 32.2 MCHC 33.1 RDW 15.8 Plt Count 234 MPV 8.4 Neutrophils % 77.6 Lymphocytes % 7.7 L Monocytes % 14.4 H Eosinophils % 0.2 D Basophils % 0.1 Sodium 144 Potassium 4.5 Chloride 111 H D Carbon Dioxide 24 Anion Gap 9 BUN 21 H D Creatinine 1.2 D Creat Clearance w eGFR 57.54 Random Glucose 100 D Lactic Acid Calcium 7.5 L Phosphorus 2.0 L D Magnesium 2.0 D Total Bilirubin 0.3 D AST 24 ALT 13 D Alkaline Phosphatase 179 H Creatine Kinase 16 L Troponin I < 0.02 D Total Protein 6.2 L Albumin 2.2 L Active Medications Generic Name Dose Route Start Last Admin Trade Name Jose Danielq PRN Reason Stop Dose Admin Ascorbic Acid 500 mg 10/23/17 10:00 10/23/17 11:10 Vitamin C - PO 500 mg DAILY [facility]NY Administration Calcium Carbonate 500 mg 10/23/17 10:00 Os-Jamar 500mg - PO DAILY [facility] Chlorhexidine Gluconate 1 applic 10/22/17 22:00 10/22/17 22:14 Hibiclens For Decolonization - TP 1 applic HS MANNY Administration Dipyridamole/Aspirin 1 combo 10/22/17 22:00 10/23/17 11:12 Aggrenox - PO 1 combo BID [facility] Administration Docusate Sodium 300 mg 10/22/17 22:00 10/22/17 22:15 Colace - PO 300 mg HS MANNY Administration Enoxaparin Sodium 80 mg 10/22/17 22:00 10/23/17 11:10 Lovenox - SQ 80 mg BID MANNY Administration Guaifenesin 10 ml 10/23/17 00:00 10/23/17 11:13 Robitussin - PO 10 ml Q6HPO [facility] Administration Dopamine HCl/Dextrose 400,000 mcg in 250 mls @ 14.458 mls/hr 10/22/17 13:45 10/22/17 15:32 Dopamine 400 Mg/D5w - IVPB 7 mcg/kg/min TITR MANNY 20.242 mls/hr Protocol Titration 5 MCG/KG/MIN Sodium Chloride 1,000 mls @ 75 mls/hr 10/22/17 14:00 10/23/17 06:29 Normal Saline - IV Not Given ASDIR [facility] CEFTRIAXONE 1 G/50 ML PREMIX 50 mls @ 100 mls/hr 10/23/17 10:00 10/23/17 10: 00 Ceftriaxone 1 Gm-D5w Bag IVPB 100 mls/hr DAILY [facility] Administration Insulin Aspart 1 vial 10/23/17 22:00 Novolog Vial Sliding Scale - SQ HS [facility]NY Protocol Insulin Aspart 1 vial 10/23/17 07:00 10/23/17 06:30 Novolog Vial Sliding Scale - SQ Not Given TIDAC [facility] Protocol Morphine Sulfate 60 mg 10/22/17 22:00 10/23/17 11:10 Ms Contin - PO 60 mg BID [facility] Administration Mupirocin 1 applic 10/22/17 22:00 10/23/17 11:11 Bactroban Ointment (For Decolonization) - NS 10/27/17 21:59 1 applic BID [facility]NY Administration Non-Formulary Medication 120 mg 10/22/17 13:15 Denosumab SQ Q30D [facility] Oseltamivir Phosphate 75 mg 10/23/17 10:00 10/23/17 11:07 Tamiflu - PO 10/28/17 09:59 75 mg BID [facility] Administration Pantoprazole Sodium 40 mg 10/23/17 11:30 Protonix - PO DAILY [facility] Polyethylene Glycol 17 gm 10/23/17 10:00 Miralax (For Daily Use) - PO DAILY [facility] Pregabalin 150 mg 10/22/17 14:00 10/23/17 06:35 Lyrica - PO 150 mg TID [facility] Administration Venlafaxine HCl 75 mg 10/23/17 10:00 Effexor Xr - PO DAILY [facility] ASSESSMENT/PLAN: This is a 87y om with PMHx of 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 Transferred to ICU with sepsis and hypoxic respiratory deficiency due to possible pneumonia/influenza. NEURO awake, oriented, confused on admission CT was done, no acute changes RESPIRATORY Hypoxic respiratory distress Cont NC O2 support as needed for O2 sat 92% Obtain sputum specimen Cont Azithro and Ceftriaxone empirically daily CXR CV Hypotension due to infection Fluid boluses Dopamine drip prn as needed for MAP>60, currently off Dopa history of CHF, monitor I&O cont. Lovenox for h/o of PE, thrombectomy in 05/23 GI Cont PPI cont Miralax, Colace ID continue empiric antibiotics: Ceftriaxone continue Tamiflu, guanifesin AZT stopped f/u ID recommendations f/u sputum culture f/u blood cultures HEM/ONC the pt is immunosupressed, cont treatment for Prostate Ca with denosumab and MsContin BID for pain management X rays revealed blastic mets to T12-L1 ENDO: ISS BGM ACHS F/E/N: NS at 75cc/hr/no changes/regular DVT PPX: on Lovenox DISPO: monitor in ICU for now Problem List - Problems (1) CHF (congestive heart failure), NYHA class II Code(s): I50.9 - HEART FAILURE, UNSPECIFIED Qualifiers: Congestive heart failure type: diastolic Congestive heart failure chronicity: unspecified Qualified Code(s): I50.30 - Unspecified diastolic ( congestive) heart failure (2) Hypotension Code(s): I95.9 - HYPOTENSION, UNSPECIFIED Qualifiers: Hypotension type: other hypotension type Qualified Code(s): I95.89 - Other hypotension (3) Primary prostate cancer with metastasis from prostate to other site Code(s): C61 - MALIGNANT NEOPLASM OF PROSTATE (4) Pulmonary embolism Code(s): I26.99 - OTHER PULMONARY EMBOLISM WITHOUT ACUTE COR PULMONALE Qualifiers: Chronicity: chronic (5) J CARLOS (acute kidney injury) Code(s): N17.9 - ACUTE KIDNEY FAILURE, UNSPECIFIED (6) DVT (deep venous thrombosis) Code(s): I82.409 - ACUTE EMBOLISM AND THOMBOS UNSP DEEP VN UNSP LOWER EXTREMITY Qualifiers: DVT location: lower extremity Affected thrombotic vein of extremity: popliteal Chronicity: acute Laterality: left Qualified Code(s): I82.432 - Acute embolism and thrombosis of left popliteal vein (7) Prostate CA Code(s): C61 - MALIGNANT NEOPLASM OF PROSTATE (8) SBO (small bowel obstruction) Code(s): K56.69 - OTHER INTESTINAL OBSTRUCTION * DO NOT USE * Visit type - Emergency Visit Emergency Visit: Yes ED Registration Date: 10/22/17 Care time: The patient presented to the Emergency Department on the above date and was hospitalized for further evaluation of their emergent condition. - New Patient This patient is new to me today: No - Critical Care Critical Care patient: Yes Total Critical Care Time (in minutes): 40 Critical Care Statement: The care of this patient involved high complexity decision making to prevent further life threatening deterioration of the patient 's condition and/or to evaluate & treat vital organ system(s) failure or risk of failure.
--- NOTE | 2017-10-23 12:50 | PN ---
Teaching Attending Note Name of Resident: Patti Sebastian ATTENDING PHYSICIAN STATEMENT I saw and evaluated the patient. I reviewed the resident's note and discussed the case with the resident. I agree with the resident's findings and plan as documented. SUBJECTIVE: Pt seen and examined in the ICU. States breathing is better but still dyspneic with movements. Blood pressure low off dopamine gtt. OBJECTIVE: Last Vital Signs Temp Pulse Resp BP Pulse Ox 100.4 F H 82 20 111/47 95 10/23/17 11:41 10/23/17 12:00 10/23/17 12:00 10/23/17 12:00 10/23/17 09:00 Intake & Output 10/20/17 10/21/17 10/22/17 10/23/17 23:59 23:59 23:59 23:59 Intake Total 1950 Output Total 1180 300 Balance 770 -300 Weight 78.744 kg Gen: mildly tachypneic at rest Heart: RRR Lung: scattered basilar rhonchi Abd: soft, nontender Ext: no edema CBC, BMP 10/23/17 05:10 10/23/17 05:10 Active Medications Ascorbic Acid (Vitamin C -) 500 mg PO DAILY [facility] Last Admin: 10/23/17 11:10 Dose: 500 mg Calcium Carbonate (Os-Jamar 500mg -) 500 mg PO DAILY [facility] Chlorhexidine Gluconate (Hibiclens For Decolonization -) [address] [facility] Last Admin: 10/22/17 22:14 Dose: 1 applic Dipyridamole/Aspirin (Aggrenox -) 1 combo PO BID [facility] Last Admin: 10/23/17 11:12 Dose: 1 combo Docusate Sodium (Colace -) 300 mg PO HS [facility] Last Admin: 10/22/17 22:15 Dose: 300 mg Enoxaparin Sodium (Lovenox -) 80 mg SQ BID [facility] Last Admin: 10/23/17 11:10 Dose: 80 mg Guaifenesin (Robitussin -) 10 ml PO Q6HPO [facility] Last Admin: 10/23/17 11:13 Dose: 10 ml Dopamine HCl/Dextrose (Dopamine 400 Mg/D5w -) 400,000 mcg in 250 mls @ 14.458 mls/hr IVPB TITR MANNY; 5 MCG/KG/MIN PRN Reason: Protocol Last Titration: 10/22/17 15:32 Dose: 7 mcg/kg/min, 20.242 mls/hr Sodium Chloride (Normal Saline -) 1,000 mls @ 75 mls/hr IV ASDIR [facility] Last Admin: 10/23/17 06:29 Dose: Not Given CEFTRIAXONE 1 G/50 ML PREMIX (Ceftriaxone 1 Gm-D5w Bag) 50 mls @ 100 mls/hr IVPB DAILY [facility] Last Admin: 10/23/17 10:00 Dose: 100 mls/hr Insulin Aspart (Novolog Vial Sliding Scale -) 1 vial SQ HS [facility] PRN Reason: Protocol Insulin Aspart (Novolog Vial Sliding Scale -) 1 vial SQ TIDAC [facility] PRN Reason: Protocol Last Admin: 10/23/17 06:30 Dose: Not Given Morphine Sulfate (Ms Contin -) 60 mg PO BID [facility] Last Admin: 10/23/17 11:10 Dose: 60 mg Mupirocin (Bactroban Ointment (For Decolonization) -) 1 applic NS BID [facility] Stop: 10/27/17 21:59 Last Admin: 10/23/17 11:11 Dose: 1 applic Non-Formulary Medication (Denosumab) 120 mg SQ Q30D [facility] Oseltamivir Phosphate (Tamiflu -) 75 mg PO BID [facility] Stop: 10/28/17 09:59 Last Admin: 10/23/17 11:07 Dose: 75 mg Pantoprazole Sodium (Protonix -) 40 mg PO DAILY [facility] Polyethylene Glycol (Miralax (For Daily Use) -) 17 gm PO DAILY [facility] Pregabalin (Lyrica -) 150 mg PO TID [facility] Last Admin: 10/23/17 06:35 Dose: 150 mg Venlafaxine HCl (Effexor Xr -) 75 mg PO DAILY [facility] ASSESSMENT AND PLAN: Acute Hypoxic Respiratory Failure r/o Pneumonia r/o Influenza Severe Sepsis h/o PE Metastatic Prostate Ca DM - continue antibiotics - continue empiric tamiflu - f/u cultures - O2 to keep SpO2 >90% - IVF boluses PRN - may need to restart pressors - monitor urine output, creatinine - continue anticoagulation - PO as tolerated - continue ICU monitoring for unstable hemodynamics critical care time spent in reviewing chart, evaluating patient and formulating plan 35 min
--- NOTE | 2017-10-23 14:36 | CON.CARD ---
Consult Consult Specialty:: Cardiology Referred by:: Hospitalist Reason for Consultation:: Hypotension - History of Present Illness Chief Complaint: Dyspnea History of Present Illness: 87yom with PMHx of metastatic prostate Ca on denosumab, left popliteal DVT and PE with RV strain post thrombectomy and ivc filter, HTN, DM, SBO initially presented to [facility] with progressive weakness, cough and confusion. As per report and patient he was diagnosed with the flu in early September with residual cough which worsened over the previous day. At [facility] pt with low grade fever, tachycardic and hypotensive SBP 90's, O2 sat 90% on room air. He was started on dopamine drip with improvement in BP since weaned off and NC O2 2L for O2 support. Labs notable for WBC 9.8, Lactate 1.2, BNP 3610. CXR showed no e/o congestion or consolidation. He was started on Azithro and Ceftriaxone as empiric CAP coverage and transferred to [facility] ICU for further management, currently with low fevers and improved sensorium. - History Source History Provided By: Medical Record Limitations to Obtaining History: Clinical Condition - Past Medical History Cardio/Vascular: Yes: HTN Pulmonary: Yes: Pulmonary Embolus (25 years ago) Gastrointestinal: Yes: GERD Renal/: Yes: Cancer - Alcohol/Substance Use Hx Alcohol Use: Yes (COCKTAIL X1 DAILY) - Smoking History Smoking history: Former smoker Have you smoked in the past 12 months: No Aproximately how many cigarettes per day: 0 If you are a former smoker, when did you quit?: 1984 - Social History Usual Living Arrangement: With Spouse ADL: Independent History of Recent Travel: No Home Medications - Allergies Allergies/Adverse Reactions: Allergies Allergy/AdvReac Type Severity Reaction Status Date / Time No Known Drug Allergies Allergy Verified 06/03/17 08:54 - Home Medications Home Medications: Ambulatory Orders Morphine (Avinza) [Avinza] 60 mg PO BID 06/03/17 Pregabalin [Lyrica] 150 mg PO TID 06/03/17 Ascorbate Calcium [Vitamin C] 500 mg PO DAILY 10/22/17 Calcium Carbonate [Calcium] 500 mg PO DAILY 10/22/17 Docusate Sodium [Colace] 300 mg PO HS 10/22/17 Enoxaparin Sodium [Lovenox] 80 mg SQ BID 01/16/18 Polyethylene Glycol 3350 [Miralax (For Daily Use) -] 17 gm PO DAILY 10/22/17 Review of Systems - Review of Systems Constitutional: reports: Weakness Respiratory: reports: Cough Neurological: reports: Confusion Vital Signs: Vital Signs Temperature 100.4 F H 10/23/17 11:41 Pulse Rate 82 10/23/17 12:00 Respiratory Rate 20 10/23/17 12:00 Blood Pressure 111/47 10/23/17 12:00 O2 Sat by Pulse Oximetry (%) 95 10/23/17 09:00 Constitutional: Yes: No Distress, Calm Neck: Yes: Supple Respiratory: Yes: Regular, Diminished, On Nasal O2 Gastrointestinal: Yes: Normal Bowel Sounds, Soft Cardiovascular: Yes: Regular Rate and Rhythm JVD: No Carotid Bruit: No Heart Sounds: Yes: S1, S2 Edema: No - Other Data Labs, Other Data: CBC, BMP 10/23/17 05:10 10/23/17 05:10 INR, PTT INR 1.24 (0.82-1.09) H 10/22/17 08:44 Troponin, BNP 10/22/17 10/23/17 16:06 05:10 Troponin I < 0.03 L D < 0.02 D Troponin, BNP 10/22/17 10/23/17 16:06 05:10 Troponin I < 0.03 L D < 0.02 D Junctional tachycardia @ 104 Imaging - Results Chest X-ray: Report Reviewed (Developing doronlar ATX) Problem List - Problems (1) [id number] kidney injury Code(s): N17.9 - ACUTE KIDNEY FAILURE, UNSPECIFIED; N18.9 - CHRONIC KIDNEY DISEASE, UNSPECIFIED Qualifiers: Chronic kidney disease stage: stage 2 (mild) (2) Hypotension Code(s): I95.9 - HYPOTENSION, UNSPECIFIED Qualifiers: Hypotension type: other hypotension type Qualified Code(s): I95.89 - Other hypotension (3) Pulmonary embolism Code(s): I26.99 - OTHER PULMONARY EMBOLISM WITHOUT ACUTE COR PULMONALE Qualifiers: Chronicity: chronic Acute cor pulmonale presence: without acute cor pulmonale (4) DVT (deep venous thrombosis) Code(s): I82.409 - ACUTE EMBOLISM AND THOMBOS UNSP DEEP VN UNSP LOWER EXTREMITY Qualifiers: DVT location: lower extremity Affected thrombotic vein of extremity: popliteal Chronicity: acute Laterality: left Qualified Code(s): I82.432 - Acute embolism and thrombosis of left popliteal vein (5) Prostate cancer metastatic to bone Code(s): C61 - MALIGNANT NEOPLASM OF PROSTATE; C79.51 - SECONDARY MALIGNANT NEOPLASM OF BONE (6) Weakness Code(s): R53.1 - WEAKNESS (7) Chronic anticoagulation Code(s): Z79.01 - PENITENTIARY (CURRENT) USE OF ANTICOAGULANTS Assessment/Plan 10/22/2017 Echo: Normal biventricular size and fxn, mild TR 1. Acute Hypoxic Respiratory Failure, r/o PNA, Influenza, post septic shock 2. 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 DVT - left popliteal vein post IVC filter insertion 6. History of metastatic prostate carcinoma on monoclonal ab 7. Acute on CKD 8. Anemia PLAN: 1. Weaned off dopamine gtt 2. Tamiflu and abx course per ID, f/u C&S 3. Continue long-term Lovenox 80 bid considering his met prostate ca history 4. Monitor CBC closely and transfuse as needed to maintain Hg equal or > 8.0 5. Thank you for consultative opportunity
[2017-10-23] MEDS ORDERED: ACETAMINOPHEN 325 MG TABLET (FP) PO ONE (15:26)
[2017-10-23] MEDS: PANTOPRAZOLE 40 MG TABLET (FP) PO SCH (17:01)
[2017-10-23] MEDS: DOPAMINE 400 MG/D5W - 400,000 MCG/250 ML INFUS.BAG IVPB SCH ×2 (17:01→20:05)
[2017-10-23] MEDS ORDERED: SODIUM CHLORIDE 500 ML IV STA (20:04)
[2017-10-23] MEDS ORDERED: VANCOMYCIN 1,000 MG in DEXTROSE 5%-WATER - 250 ML IVPB ONE (21:15)
[2017-10-23] MEDS ORDERED: PIPERACILLIN/TAZOB 2.25 GM 2.25 GM in DEXTROSE 5%-WATER - 100 ML IVPB ONE (21:15)
[2017-10-23] MEDS: DOCUSATE SODIUM 100 MG CAPSULE (FP) PO SCH (22:07)
[2017-10-23] MEDS: CHLORHEXIDINE GLUCONATE 4% CLEANSER FOR DECOLONIZATION TP SCH (22:07)
[2017-10-23] MEDS: LYTES/YERBA SANTA 240 ML BOTTLE MM SCH (23:10)
--- NOTE | 2017-10-24 00:14 | PN ---
Physical Exam: SUBJECTIVE: Patient seen and examined in ICU. OBJECTIVE: Vital Signs Period Temp Pulse Resp BP Sys/Kim Pulse Ox Last 24 Hr 98.2 F-100.6 F 73-500 16-89 78-128/39-90 95-95 GENERAL: The patient is sleeping, but arousable, Follows commands. Interacts appropriately. LUNGS: Breath sounds equal, clear to auscultation bilaterally, no wheezes, no crackles, no accessory muscle use. HEART: Regular rate and rhythm, S1, S2 ABDOMEN: Soft, nontender, nondistended, normoactive bowel sounds, no guarding, no rebound EXTREMITIES: 2+ pulses, warm, well-perfused, no edema. NEUROLOGICAL: Cranial nerves II through XII grossly intact. Laboratory Results - last 24 hr 10/23/17 10/23/17 10/23/17 05:10 05:10 05:10 WBC 9.9 D RBC 2.85 L Hgb 9.2 L Hct 27.7 L MCV 97.2 H MCH 32.2 MCHC 33.1 RDW 15.8 Plt Count 234 MPV 8.4 Neutrophils % 77.6 Lymphocytes % 7.7 L Monocytes % 14.4 H Eosinophils % 0.2 D Basophils % 0.1 Sodium 144 Potassium 4.5 Chloride 111 H D Carbon Dioxide 24 Anion Gap 9 BUN 21 H D Creatinine 1.2 D Creat Clearance w eGFR 57.54 POC Glucometer Random Glucose 100 D Calcium 7.5 L Phosphorus 2.0 L D Magnesium 2.0 D Total Bilirubin 0.3 D AST 24 ALT 13 D Alkaline Phosphatase 179 H Creatine Kinase 16 L Troponin I < 0.02 D Total Protein 6.2 L Albumin 2.2 L 10/23/17 12:37 WBC RBC Hgb Hct MCV MCH MCHC RDW Plt Count MPV Neutrophils % Lymphocytes % Monocytes % Eosinophils % Basophils % Sodium Potassium Chloride Carbon Dioxide Anion Gap BUN Creatinine Creat Clearance w eGFR POC Glucometer [phone] Random Glucose Calcium Phosphorus Magnesium Total Bilirubin AST ALT Alkaline Phosphatase Creatine Kinase Troponin I Total Protein Albumin Active Medications Generic Name Dose Route Start Last Admin Trade Name Freq PRN Reason Stop Dose Admin Ascorbic Acid 500 mg 10/23/17 10:00 10/23/17 11:10 Vitamin C - PO 500 mg DAILY MANNY Administration Calcium Carbonate 500 mg 10/23/17 10:00 10/23/17 11:00 Os-Jamar 500mg - PO 500 mg DAILY [facility] Administration Chlorhexidine Gluconate 1 applic 10/22/17 22:00 10/23/17 22:07 Hibiclens For Decolonization - TP 1 applic HS [facility]NY Administration Dipyridamole/Aspirin 1 combo 10/22/17 22:00 10/23/17 22:30 Aggrenox - PO 1 combo BID MANNY Administration Docusate Sodium 300 mg 10/22/17 22:00 10/23/17 22:07 Colace - PO 300 mg HS [facility]NY Administration Enoxaparin Sodium 80 mg 10/22/17 22:00 10/23/17 22:07 Lovenox - SQ 80 mg BID MANNY Administration Guaifenesin 10 ml 10/23/17 00:00 10/23/17 23:13 Robitussin - PO 10 ml Q6HPO MANNY Administration Sodium Chloride 1,000 mls @ 75 mls/hr 10/22/17 14:00 10/23/17 17:03 Normal Saline - IV 75 mls/hr ASDIR [facility] Administration CEFTRIAXONE 1 G/50 ML PREMIX 50 mls @ 100 mls/hr 10/23/17 10:00 10/23/17 10: 00 Ceftriaxone 1 Gm-D5w Bag IVPB 100 mls/hr DAILY [facility] Administration Dopamine HCl/Dextrose 400,000 mcg in 250 mls @ 14.765 mls/hr 10/23/17 20:00 10/23/17 20:05 Dopamine 400 Mg/D5w - IVPB 5 mcg/kg/min TITR MANNY 14.765 mls/hr Protocol Administration 5 MCG/KG/MIN Insulin Aspart 1 vial 10/23/17 22:00 10/23/17 23:13 Novolog Vial Sliding Scale - SQ Not Given HS MANNY Protocol Insulin Aspart 1 vial 10/23/17 07:00 10/23/17 17:52 Novolog Vial Sliding Scale - SQ 2 units TIDAC [facility] Administration Protocol Morphine Sulfate 60 mg 10/22/17 22:00 10/23/17 22:07 Ms Contin - PO 60 mg BID MANNY Administration Mupirocin 1 applic 10/22/17 22:00 10/23/17 22:08 Bactroban Ointment (For Decolonization) - NS 10/27/17 21:59 1 applic BID MANNY Administration Non-Formulary Medication 120 mg 10/22/17 13:15 Denosumab SQ Q30D [facility] Oseltamivir Phosphate 75 mg 10/23/17 10:00 10/23/17 23:13 Tamiflu - PO 10/28/17 09:59 75 mg BID MANNY Administration Pantoprazole Sodium 40 mg 10/23/17 11:30 10/23/17 17:01 Protonix - PO 40 mg DAILY [facility] Administration Polyethylene Glycol 17 gm 10/23/17 10:00 10/23/17 11:00 Miralax (For Daily Use) - PO 17 grams DAILY [facility] Administration Pregabalin 150 mg 10/22/17 14:00 10/23/17 22:07 Lyrica - PO 150 mg TID MANNY Administration Saliva Substitute 1 applic 10/23/17 19:45 10/23/17 23:10 Mouthkote Solution - MM 1 applic DAILY [facility] Administration Venlafaxine HCl 75 mg 10/23/17 10:00 10/23/17 11:00 Effexor Xr - PO 75 mg DAILY [facility] Administration ASSESSMENT/PLAN: 87 year-old male with a PMH significant for diastolic heart failure, NIDDM, metastatic prostate cancer on Xgeva, h/o PE s/p IVC filter on Lovenox, and h/o SBO. Admitted for pneumonia and possible influenza. Sepsis secondary to bacterial pneumonia v.viral infection --Tm 101.9, WBC wnl --BP stable, off dopamine --per ID, continue ceftriaxone and empiric Tamiflu Diastolic heart failure --10/23 Echo: LV abnormal diastolic compliance; RV normal; mild TR NIDDM --Novolog sliding scale coverage Metastatic prostate cancer --on Xgeva h/o PE --has IVC filter --continue full dose Lovenox h/o SBO --stable Visit type - Emergency Visit Emergency Visit: Yes ED Registration Date: 10/22/17 Care time: The patient presented to the Emergency Department on the above date and was hospitalized for further evaluation of their emergent condition. - New Patient This patient is new to me today: Yes Date on this admission: 10/25/17 - Critical Care Critical Care patient: Yes Total Critical Care Time (in minutes): 45 Critical Care Statement: The care of this patient involved high complexity decision making to prevent further life threatening deterioration of the patient 's condition and/or to evaluate & treat vital organ system(s) failure or risk of failure.
[2017-10-24] MEDS: guaiFENesin 200 MG/10 ML 10 ML UNIT-DOSE CUPS PO SCH ×4 (06:08→23:47)
[2017-10-24] MEDS: INSULIN SLIDING SCALE (NOVOLOG) 1 VIAL SQ SCH ×4 (06:08→21:57)
[2017-10-24] MEDS: PREGABALIN 50 MG CAPSULE PO SCH ×3 (06:10→21:56)
[2017-10-24 06:42] LABS: BASO % 0.1 % (0-2.0); EOS % 0.8 % (0-4.5); HEMATOCRIT 28.7 % (35.4-49); HEMOGLOBIN 9.4 GM/dL (11.7-16.9); LYMPH % 6.4 % (8-40); MCHC 32.7 g/dl (32.0-35.9); MEAN CELL VOLUME 97.9 fl (80-96); MEAN PLT VOLUME 8.6 fl (7.5-11.1); MONO % 13.3 % (3.8-10.2); NEUT % 79.4 % (42.8-82.8); PLATELET COUNT 239 K/MM3 (134-434); RBC 2.93 M/mm3 (4.00-5.60); RDW 15.5 % (11.9-15.9); WHITE BLOOD COUNT 8.9 K/mm3 (4.0-10.0)
[2017-10-24 07:06] LABS: ALBUMIN 2.1 g/dl (3.4-5.0); CHLORIDE 107 mmol/L (98-107); POTASSIUM 4.5 mmol/L (3.5-5.1); SGOT/AST 17 U/L (15-37); SGPT/ALT 12 U/L (12-78); SODIUM 141 mmol/L (136-145)
[2017-10-24 07:08] LABS: ALK PHOS 172 U/L (45-117); ANION GAP 9 (8-16); BILIRUBIN,TOTAL 0.2 mg/dL (0.2-1.0); BLOOD UREA NITROGEN 18 mg/dL (7-18); CALCIUM 7.2 mg/dL (8.5-10.1); CO2 25 mmol/L (21-32); CREATININE 1.2 mg/dL (0.7-1.3); GLUCOSE,RANDOM 160 mg/dL (74-106); TOT PROT 6.1 g/dl (6.4-8.2)
--- NOTE | 2017-10-24 07:22 | PN ---
Progress Note, Physician Chief Complaint: ID Alert less confused today and appears in NAD Meds: Oseltamavir & Ceftriaxone Congested Temps down - Current Medication List Current Medications: Active Medications Ascorbic Acid (Vitamin C -) 500 mg PO DAILY [facility] Last Admin: 10/23/17 11:10 Dose: 500 mg Calcium Carbonate (Os-Jamar 500mg -) 500 mg PO DAILY [facility] Last Admin: 10/23/17 11:00 Dose: 500 mg Chlorhexidine Gluconate (Hibiclens For Decolonization -) 1 applic TP [facility] Last Admin: 10/23/17 22:07 Dose: 1 applic Dipyridamole/Aspirin (Aggrenox -) 1 combo PO BID [facility] Last Admin: 10/23/17 22:30 Dose: 1 combo Docusate Sodium (Colace -) 300 mg PO [facility] Last Admin: 10/23/17 22:07 Dose: 300 mg Enoxaparin Sodium (Lovenox -) 80 mg SQ BID [facility] Last Admin: 10/23/17 22:07 Dose: 80 mg Guaifenesin (Robitussin -) 10 ml PO Q6HPO [facility] Last Admin: 10/24/17 06:08 Dose: 10 ml Sodium Chloride (Normal Saline -) 1,000 mls @ 75 mls/hr IV ASDIR [facility] Last Admin: 10/23/17 17:03 Dose: 75 mls/hr CEFTRIAXONE 1 G/50 ML PREMIX (Ceftriaxone 1 Gm-D5w Bag) 50 mls @ 100 mls/hr IVPB DAILY [facility] Last Admin: 10/23/17 10:00 Dose: 100 mls/hr Dopamine HCl/Dextrose (Dopamine 400 Mg/D5w -) 400,000 mcg in 250 mls @ 14.765 mls/hr IVPB TITR MANNY; 5 MCG/KG/MIN PRN Reason: Protocol Last Admin: 10/23/17 20:05 Dose: 5 mcg/kg/min, 14.765 mls/hr Insulin Aspart (Novolog Vial Sliding Scale -) 1 vial SQ HS [facility] PRN Reason: Protocol Last Admin: 10/23/17 23:13 Dose: Not Given Insulin Aspart (Novolog Vial Sliding Scale -) 1 vial SQ TIDAC [facility] PRN Reason: Protocol Last Admin: 10/24/17 06:08 Dose: Not Given Morphine Sulfate (Ms Contin -) 60 mg PO BID [facility] Last Admin: 10/23/17 22:07 Dose: 60 mg Mupirocin (Bactroban Ointment (For Decolonization) -) 1 applic NS BID [facility] Stop: 10/27/17 21:59 Last Admin: 10/23/17 22:08 Dose: 1 applic Non-Formulary Medication (Denosumab) 120 mg SQ Q30D [facility] Oseltamivir Phosphate (Tamiflu -) 75 mg PO BID [facility] Stop: 10/28/17 09:59 Last Admin: 10/23/17 23:13 Dose: 75 mg Pantoprazole Sodium (Protonix -) 40 mg PO DAILY [facility] Last Admin: 10/23/17 17:01 Dose: 40 mg Polyethylene Glycol (Miralax (For Daily Use) -) 17 gm PO DAILY [facility] Last Admin: 10/23/17 11:00 Dose: 17 grams Pregabalin (Lyrica -) 150 mg PO TID [facility] Last Admin: 10/24/17 06:10 Dose: 150 mg Saliva Substitute (Mouthkote Solution -) 1 applic MM DAILY [facility] Last Admin: 10/23/17 23:10 Dose: 1 applic Venlafaxine HCl (Effexor Xr -) 75 mg PO DAILY [facility] Last Admin: 10/23/17 11:00 Dose: 75 mg - Objective Vital Signs: Vital Signs Temperature 98.9 F 10/24/17 06:00 Pulse Rate 86 10/24/17 06:00 Respiratory Rate 19 10/24/17 06:00 Blood Pressure 126/78 10/24/17 06:00 O2 Sat by Pulse Oximetry (%) 95 10/23/17 21:00 Constitutional: Yes: Well Nourished, No Distress HENT: Yes: WNL, Atraumatic Neck: Yes: WNL, Supple Cardiovascular: Yes: Regular Rate and Rhythm, S1, S2. No: Murmur Respiratory: Yes: WNL, Regular, CTA Bilaterally, Other (Bilateral rhonchi) Gastrointestinal: Yes: WNL, Normal Bowel Sounds, Soft Extremities: No: Cold, Cool, Cyanosis Edema: No Labs: INR, PTT INR 1.24 (0.82-1.09) H 10/22/17 08:44 Problem List - Problems (1) Acute bronchitis Code(s): J20.9 - ACUTE BRONCHITIS, UNSPECIFIED (2) Primary prostate cancer with metastasis from prostate to other site Code(s): C61 - MALIGNANT NEOPLASM OF PROSTATE (3) Pulmonary embolism Code(s): I26.99 - OTHER PULMONARY EMBOLISM WITHOUT ACUTE COR PULMONALE Qualifiers: Chronicity: chronic Acute cor pulmonale presence: without acute cor pulmonale (4) Influenza Code(s): J11.1 - FLU DUE TO UNIDENTIFIED INFLUENZA VIRUS W OTH RESP MANIFEST Assessment/Plan Microbiology 10/22/17 09:10 Nasopharyngeal Swab Influenza Types A,B Antigen (TONNY) - Final 10/22/17 09:10 Nasopharyngeal Swab - Final 10/22/17 08:44 Blood - Peripheral Venous Blood Culture - Preliminary Pending Organism 10/22/17 08:44 Blood - Peripheral Venous Blood Culture - Preliminary NO GROWTH OBTAINED AFTER 24 HOURS, INCUBATION TO CONTINUE FOR 4 DAYS. Laboratory Tests 10/22/17 10/23/17 10/23/17 10:08 05:10 05:10 WBC 9.9 D Hgb 9.2 L Plt Count 234 Neutrophils % 77.6 Monocytes % 14.4 H Creatinine 1.2 D AST 24 ALT 13 D Alkaline Phosphatase 179 H Urine RBC 0-2 Urine WBC 1-2 10/24/17 05:05 WBC Pending Hgb Pending Plt Count Pending Neutrophils % Monocytes % Creatinine AST ALT Alkaline Phosphatase Urine RBC Urine WBC Assessment Viral syndrome ? Influenza clinically Pulmonary congestion ? CHF with chest xray looking more congested fluid Metastatic prostate cancer (monoclononal) back pain severe Preliminary report 1 bottle gram positive cocci( for which 1 gram vanco given) ? contaminant Encephalopathy ? Influenza related Plan Continue Tamiflu Continue Ceftriaxone for respiratory coverage "typical" pulmonary pathogens Legionella AG Vanco level Will not redose at this point unless additional bottles positive Critical care time spent 35 minutes
[2017-10-24] MEDS ORDERED: PT OWN MED DRAWER 7, Y5N ONE ×2 (09:05→21:55)
--- NOTE | 2017-10-24 09:09 | PN ---
Physical Exam: SUBJECTIVE: Patient seen and examined The patient is an 87 year old male with a history of metastatic prostate CA, PE on lovenox and s/p filter, DM who presented for generalized weakness with cough and AMS who was admitted to the ICU for hypotension and respiratory distress due to chf exacerbation vs. pneumonia. Patient currently reports improvement in his symptoms. Only complaining of chronic arthritic pain. Patient was restarted on dopamine for continued hypotension overnight. Otherwise no other acute events. OBJECTIVE: Vital Signs Period Temp Pulse Resp BP Sys/Kim Pulse Ox Last 24 Hr 98.6 F-100.6 F 73-500 16-89 78-126/39-90 95 GENERAL: The patient is awake, alert, and fully oriented, in no acute distress. HEAD: Normal with no signs of trauma. EYES: sclera anicteric, conjunctiva clear. No ptosis. ENT: nares patent, oropharynx clear without exudates, moist mucous membranes. NECK: Trachea midline, full range of motion, supple. LUNGS: Breath sounds equal, Rhonchi auscultated bilaterally, no wheezes, no crackles, no accessory muscle use. HEART: Regular rate and rhythm, S1, S2 without murmur, rub or gallop. ABDOMEN: Soft, nontender, nondistended, normoactive bowel sounds, no guarding, no rebound, no hepatosplenomegaly, no masses. EXTREMITIES: 2+ pulses, warm, well-perfused. NEUROLOGICAL: Normal speech, gait not observed. PSYCH: Normal mood, normal affect. SKIN: Warm, dry, normal turgor, no rashes or lesions noted Laboratory Results - last 24 hr 10/23/17 10/23/17 10/24/17 05:44 12:37 05:05 WBC 8.9 RBC 2.93 L Hgb 9.4 L Hct 28.7 L MCV 97.9 H MCH 32.0 MCHC 32.7 RDW 15.5 Plt Count 239 MPV 8.6 Neutrophils % 79.4 Lymphocytes % 6.4 L Monocytes % 13.3 H Eosinophils % 0.8 D Basophils % 0.1 Sodium Potassium Chloride Carbon Dioxide Anion Gap BUN Creatinine Creat Clearance w eGFR POC Glucometer [phone] Random Glucose Calcium Total Bilirubin AST ALT Alkaline Phosphatase Total Protein Albumin 10/24/17 10/24/17 05:05 05:57 WBC RBC Hgb Hct MCV MCH MCHC RDW Plt Count MPV Neutrophils % Lymphocytes % Monocytes % Eosinophils % Basophils % Sodium 141 Potassium 4.5 Chloride 107 Carbon Dioxide 25 Anion Gap 9 BUN 18 Creatinine 1.2 Creat Clearance w eGFR 57.54 POC Glucometer [phone] Random Glucose 160 H D Calcium 7.2 L Total Bilirubin 0.2 D AST 17 D ALT 12 Alkaline Phosphatase 172 H Total Protein 6.1 L Albumin 2.1 L Active Medications Generic Name Dose Route Start Last Admin Trade Name Freq PRN Reason Stop Dose Admin Ascorbic Acid 500 mg 10/23/17 10:00 10/23/17 11:10 Vitamin C - PO 500 mg DAILY [facility] Administration Calcium Carbonate 500 mg 10/23/17 10:00 10/23/17 11:00 Os-Jamar 500mg - PO 500 mg DAILY [facility] Administration Chlorhexidine Gluconate 1 applic 10/22/17 22:00 10/23/17 22:07 Hibiclens For Decolonization - TP 1 applic HS [facility] Administration Dipyridamole/Aspirin 1 combo 10/22/17 22:00 10/23/17 22:30 Aggrenox - PO 1 combo BID [facility] Administration Docusate Sodium 300 mg 10/22/17 22:00 10/23/17 22:07 Colace - PO 300 mg HS [facility] Administration Enoxaparin Sodium 80 mg 10/22/17 22:00 10/23/17 22:07 Lovenox - SQ 80 mg BID [facility] Administration Guaifenesin 10 ml 10/23/17 00:00 10/24/17 06:08 Robitussin - PO 10 ml Q6HPO [facility] Administration Sodium Chloride 1,000 mls @ 75 mls/hr 10/22/17 14:00 10/23/17 17:03 Normal Saline - IV 75 mls/hr ASDIR [facility] Administration CEFTRIAXONE 1 G/50 ML PREMIX 50 mls @ 100 mls/hr 10/23/17 10:00 10/23/17 10: 00 Ceftriaxone 1 Gm-D5w Bag IVPB 100 mls/hr DAILY [facility] Administration Dopamine HCl/Dextrose 400,000 mcg in 250 mls @ 14.765 mls/hr 10/23/17 20:00 10/23/17 20:05 Dopamine 400 Mg/D5w - IVPB 5 mcg/kg/min TITR MANNY 14.765 mls/hr Protocol Administration 5 MCG/KG/MIN Insulin Aspart 1 vial 10/23/17 22:00 10/23/17 23:13 Novolog Vial Sliding Scale - SQ Not Given HS [facility] Protocol Insulin Aspart 1 vial 10/23/17 07:00 10/24/17 06:08 Novolog Vial Sliding Scale - SQ Not Given TIDAC [facility] Protocol Morphine Sulfate 60 mg 10/22/17 22:00 10/23/17 22:07 Ms Contin - PO 60 mg BID [facility] Administration Mupirocin 1 applic 10/22/17 22:00 10/23/17 22:08 Bactroban Ointment (For Decolonization) - NS 10/27/17 21:59 1 applic BID [facility] Administration Non-Formulary Medication 120 mg 10/22/17 13:15 Denosumab SQ Q30D [facility] Oseltamivir Phosphate 75 mg 10/23/17 10:00 10/23/17 23:13 Tamiflu - PO 10/28/17 09:59 75 mg BID [facility] Administration Pantoprazole Sodium 40 mg 10/23/17 11:30 10/23/17 17:01 Protonix - PO 40 mg DAILY [facility] Administration Polyethylene Glycol 17 gm 10/23/17 10:00 10/23/17 11:00 Miralax (For Daily Use) - PO 17 grams DAILY [facility] Administration Pregabalin 150 mg 10/22/17 14:00 10/24/17 06:10 Lyrica - PO 150 mg TID [facility] Administration Saliva Substitute 1 applic 10/23/17 19:45 10/23/17 23:10 Mouthkote Solution - MM 1 applic DAILY [facility] Administration Venlafaxine HCl 75 mg 10/23/17 10:00 10/23/17 11:00 Effexor Xr - PO 75 mg DAILY [facility] Administration ASSESSMENT/PLAN: The patient is an 87 year old male with a history of metastatic prostate CA, PE on lovenox and s/p filter, DM who presented for generalized weakness with cough and AMS who was admitted to the ICU for hypotension and respiratory distress due to chf exacerbation vs. pneumonia. NEURO No issues currently. -Awake, oriented, RESPIRATORY #Hypoxic respiratory distress -Continue NC O2 support as needed for O2 sat 92% -Continue Ceftriaxone empirically -Will obtain daily CXR CV #Hypotension due to infection vs. chf -Continue Fluid boluses as needed -Continue Dopamine drip prn as needed for MAP>60, currently restarted on dopamine #CHF -Continue to monitor I&O -Continue Lovenox for h/o of PE, thrombectomy in 05/23 -We will hold standing iv fluids and only bolus as needed. GI Contiue protonix 40mg daily. 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 DVT PPX: -Continue lovenox 80 BID. DISPO: Continue ICU level of care. Visit type - Emergency Visit Emergency Visit: No - New Patient This patient is new to me today: Yes Date on this admission: 10/24/17 - Critical Care Critical Care patient: Yes Total Critical Care Time (in minutes): 35 Critical Care Statement: The care of this patient involved high complexity decision making to prevent further life threatening deterioration of the patient 's condition and/or to evaluate & treat vital organ system(s) failure or risk of failure.
[2017-10-24] MEDS: MUPIROCIN 2% TOPICAL OINTMENT FOR DECOLONIZATION NS SCH ×2 (09:27→21:58)
[2017-10-24] MEDS: CEFTRIAXONE 1 G/50 ML PREMIX 50 ML IVPB SCH (09:27)
[2017-10-24] MEDS: ENOXAPARIN NA (PORCINE) 80 MG/0.8 ML DISP.SYRIN SQ SCH ×2 (09:27→21:56)
[2017-10-24] MEDS: LYTES/YERBA SANTA 240 ML BOTTLE MM SCH (09:28)
[2017-10-24] MEDS: ASCORBIC ACID 500 MG TABLET (FP) PO SCH (09:28)
[2017-10-24] MEDS: PANTOPRAZOLE 40 MG TABLET (FP) PO SCH (09:28)
[2017-10-24] MEDS: POLYETHYLENE GLYCOL 3350 119 GM BTL PO SCH (09:28)
--- NOTE | 2017-10-24 12:28 | PN ---
Progress Note, Physician Chief Complaint: Events noted Remains in ICU Complains of cough and coarse breath sounds History of Present Illness: Patient was seen and examined. Awake and alert. Chart was reviewed Denies chest pain, complains of coarse breath sounds. No palpitations - Current Medication List Current Medications: Active Medications Ascorbic Acid (Vitamin C -) 500 mg PO DAILY [facility] Last Admin: 10/24/17 09:28 Dose: 500 mg Calcium Carbonate (Os-Jamar 500mg -) 500 mg PO DAILY [facility] Last Admin: 10/23/17 11:00 Dose: 500 mg Chlorhexidine Gluconate (Hibiclens For Decolonization -) 1 applic TP [facility] Last Admin: 10/23/17 22:07 Dose: 1 applic Dipyridamole/Aspirin (Aggrenox -) 1 combo PO BID [facility] Last Admin: 10/23/17 22:30 Dose: 1 combo Docusate Sodium (Colace -) 300 mg PO [facility] Last Admin: 10/23/17 22:07 Dose: 300 mg Enoxaparin Sodium (Lovenox -) 80 mg SQ BID [facility] Last Admin: 10/24/17 09:27 Dose: 80 mg Guaifenesin (Robitussin -) 10 ml PO Q6HPO [facility] Last Admin: 10/24/17 06:08 Dose: 10 ml CEFTRIAXONE 1 G/50 ML PREMIX (Ceftriaxone 1 Gm-D5w Bag) 50 mls @ 100 mls/hr IVPB DAILY [facility] Last Admin: 10/24/17 09:27 Dose: 100 mls/hr Dopamine HCl/Dextrose (Dopamine 400 Mg/D5w -) 400,000 mcg in 250 mls @ 14.765 mls/hr IVPB TITR MANNY; 5 MCG/KG/MIN PRN Reason: Protocol Last Admin: 10/23/17 20:05 Dose: 5 mcg/kg/min, 14.765 mls/hr Insulin Aspart (Novolog Vial Sliding Scale -) 1 vial SQ [facility] PRN Reason: Protocol Last Admin: 10/23/17 23:13 Dose: Not Given Insulin Aspart (Novolog Vial Sliding Scale -) 1 vial SQ TIDAC [facility] PRN Reason: Protocol Last Admin: 10/24/17 06:08 Dose: Not Given Morphine Sulfate (Ms Contin -) 60 mg PO BID [facility] Last Admin: 10/23/17 22:07 Dose: 60 mg Mupirocin (Bactroban Ointment (For Decolonization) -) 1 applic NS BID [facility] Stop: 10/27/17 21:59 Last Admin: 10/24/17 09:27 Dose: 1 applic Non-Formulary Medication (Denosumab) 120 mg SQ Q30D [facility] Oseltamivir Phosphate (Tamiflu -) 75 mg PO BID [facility] Stop: 10/28/17 09:59 Last Admin: 10/23/17 23:13 Dose: 75 mg Pantoprazole Sodium (Protonix -) 40 mg PO DAILY [facility] Last Admin: 10/24/17 09:28 Dose: 40 mg Polyethylene Glycol (Miralax (For Daily Use) -) 17 gm PO DAILY [facility] Last Admin: 10/24/17 09:28 Dose: 17 grams Pregabalin (Lyrica -) 150 mg PO TID [facility] Last Admin: 10/24/17 06:10 Dose: 150 mg Saliva Substitute (Mouthkote Solution -) 1 applic MM DAILY [facility] Last Admin: 10/24/17 09:28 Dose: 1 applic Venlafaxine HCl (Effexor Xr -) 75 mg PO DAILY [facility] Last Admin: 10/23/17 11:00 Dose: 75 mg - Objective Vital Signs: Vital Signs Temperature 98.4 F 10/24/17 10:00 Pulse Rate 85 10/24/17 10:51 Respiratory Rate 19 10/24/17 10:00 Blood Pressure 117/62 10/24/17 10:00 O2 Sat by Pulse Oximetry (%) 94 L 10/24/17 10:51 Neck: Yes: Supple Cardiovascular: Yes: Regular Rate and Rhythm, S1, S2 Respiratory: Yes: Rhonchi Gastrointestinal: Yes: Normal Bowel Sounds, Soft. No: Tenderness Edema: No Additional Findings/Remarks: - Review of Systems Constitutional: denies: Chills, Fever Cardiovascular: reports: Shortness of Breath - improved denies: Chest Pain, Palpitations Respiratory: reports: SOB - improved. denies: Orthopnea, PND Gastrointestinal: denies: Abdominal Pain, Constipation, Diarrhea, Melena, Nausea , Rectal Bleeding, Vomiting Neurological: denies: Weakness. denies: Dizziness, Headache, Seizure, Syncope Labs: CBC, BMP 10/24/17 05:05 10/24/17 05:05 INR, PTT INR 1.24 (0.82-1.09) H 10/22/17 08:44 - ....Imaging Chest X-ray: Report Reviewed (New congestive changes with left infiltrates) Problem List - Problems (1) Acute bronchitis Code(s): J20.9 - ACUTE BRONCHITIS, UNSPECIFIED Qualifiers: Bronchitis organism: unspecified organism Qualified Code(s): J20.9 - Acute bronchitis, unspecified (2) [id number] kidney injury Code(s): N17.9 - ACUTE KIDNEY FAILURE, UNSPECIFIED; N18.9 - CHRONIC KIDNEY DISEASE, UNSPECIFIED Qualifiers: Chronic kidney disease stage: stage 2 (mild) (3) CHF (congestive heart failure), NYHA class II Code(s): I50.9 - HEART FAILURE, UNSPECIFIED Qualifiers: Congestive heart failure type: diastolic Congestive heart failure chronicity: unspecified Qualified Code(s): I50.30 - Unspecified diastolic ( congestive) heart failure (4) Elevated troponin Code(s): R74.8 - ABNORMAL LEVELS OF OTHER SERUM ENZYMES (5) Influenza Code(s): J11.1 - FLU DUE TO UNIDENTIFIED INFLUENZA VIRUS W OTH RESP MANIFEST (6) Primary prostate cancer with metastasis from prostate to other site Code(s): C61 - MALIGNANT NEOPLASM OF PROSTATE (7) Pulmonary embolism Code(s): I26.99 - OTHER PULMONARY EMBOLISM WITHOUT ACUTE COR PULMONALE Qualifiers: Chronicity: chronic Acute cor pulmonale presence: without acute cor pulmonale (8) Sepsis Code(s): A41.9 - SEPSIS, UNSPECIFIED ORGANISM Qualifiers: Sepsis type: sepsis due to unspecified organism Qualified Code(s): A41.9 - Sepsis, unspecified organism (9) DVT (deep venous thrombosis) Code(s): I82.409 - ACUTE EMBOLISM AND THOMBOS UNSP DEEP VN UNSP LOWER EXTREMITY Qualifiers: DVT location: lower extremity Affected thrombotic vein of extremity: popliteal Chronicity: acute Laterality: left Qualified Code(s): I82.432 - Acute embolism and thrombosis of left popliteal vein (10) Diabetes Code(s): E11.9 - TYPE 2 DIABETES MELLITUS WITHOUT COMPLICATIONS Qualifiers: Diabetes mellitus type: type 2 Diabetes mellitus complication status: without complication Diabetes mellitus tank terminal gauger insulin use: without chcf use Qualified Code(s): E11.9 - Type 2 diabetes mellitus without complications Assessment/Plan 1. Acute Hypoxic Respiratory Failure, possible PNA, Influenza, post septic shock 2. 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 DVT - left popliteal vein post IVC filter insertion 6. History of metastatic prostate carcinoma on monoclonal antibody 7. Acute on CKD 8. Anemia PLAN: 1. Continue present therapy 2. Tamiflu and antibiotic course per ID 3. Continue long-term Lovenox 80 bid considering his metastasis of prostate ca 4. Monitor CBC closely and transfuse as needed to maintain Hgb Further plans are to follow Vin Guillen MD
[2017-10-24] MEDS: ASPIRIN/DIPYRIDAMOLE 25 MG/200 MG CAPSULE (FP) PO SCH ×2 (12:35→22:37)
[2017-10-24] MEDS: OSELTAMIVIR PHOSPHATE 75 MG CAPSULE PO SCH ×2 (12:35→21:57)
[2017-10-24] MEDS: morphine SO4 SUSTAINED ACTING 30 MG TABLET.SA PO SCH ×2 (12:35→21:56)
[2017-10-24] MEDS: CALCIUM (OYSTER SHELL) 500 MG TABLET (FP) PO SCH (12:35)
[2017-10-24 12:49] LABS: MAGNESIUM 1.8 mg/dL (1.8-2.4); PHOSPHOROUS 1.6 mg/dL (2.5-4.9)
[2017-10-24] MEDS: VENLAFAXINE HCL 75 MG E.R. CAPSULES (FP) PO SCH (12:53)
--- NOTE | 2017-10-24 12:55 | PN ---
Teaching Attending Note Name of Resident: Tucker Peña ATTENDING PHYSICIAN STATEMENT I saw and evaluated the patient. I reviewed the resident's note and discussed the case with the resident. I agree with the resident's findings and plan as documented. SUBJECTIVE: Pt seen and examined in the ICU. Placed back on dopamine gtt overnight for hypotension. Breathing about the same, reports a persistent nonproductive cough. OBJECTIVE: Last Vital Signs Temp Pulse Resp BP Pulse Ox 98.4 F 85 19 117/62 94 L 10/24/17 10:00 10/24/17 10:51 10/24/17 10:00 10/24/17 10:00 10/24/17 10:51 Intake & Output 10/21/17 10/22/17 10/23/17 10/24/17 23:59 23:59 23:59 23:59 Intake Total 2611 485 8863 Output Total 1180 1525 700 Balance 770 -1025 862 Weight 78.744 kg 79.974 kg Gen: mildly tachypneic at rest Heart: RRR Lung: bibasilar rhonchi, rales Abd: soft, nontender Ext: dependent edema CBC, BMP 10/24/17 05:05 10/24/17 05:05 Active Medications Ascorbic Acid (Vitamin C -) 500 mg PO DAILY [facility] Last Admin: 10/24/17 09:28 Dose: 500 mg Calcium Carbonate (Os-Jamar 500mg -) 500 mg PO DAILY [facility] Last Admin: 10/24/17 12:35 Dose: 500 mg Chlorhexidine Gluconate (Hibiclens For Decolonization -) 1 applic TP HS [facility] Last Admin: 10/23/17 22:07 Dose: 1 applic Dipyridamole/Aspirin (Aggrenox -) 1 combo PO BID [facility] Last Admin: 10/24/17 12:35 Dose: 1 combo Docusate Sodium (Colace -) 300 mg PO HS [facility] Last Admin: 10/23/17 22:07 Dose: 300 mg Enoxaparin Sodium (Lovenox -) 80 mg SQ BID [facility] Last Admin: 10/24/17 09:27 Dose: 80 mg Guaifenesin (Robitussin -) 10 ml PO Q6HPO [facility] Last Admin: 10/24/17 06:08 Dose: 10 ml CEFTRIAXONE 1 G/50 ML PREMIX (Ceftriaxone 1 Gm-D5w Bag) 50 mls @ 100 mls/hr IVPB DAILY [facility] Last Admin: 10/24/17 09:27 Dose: 100 mls/hr Dopamine HCl/Dextrose (Dopamine 400 Mg/D5w -) 400,000 mcg in 250 mls @ 14.765 mls/hr IVPB TITR [facility]NY; 5 MCG/KG/MIN PRN Reason: Protocol Last Admin: 10/23/17 20:05 Dose: 5 mcg/kg/min, 14.765 mls/hr Insulin Aspart (Novolog Vial Sliding Scale -) 1 vial SQ HS [facility] PRN Reason: Protocol Last Admin: 10/23/17 23:13 Dose: Not Given Insulin Aspart (Novolog Vial Sliding Scale -) 1 vial SQ TIDAC [facility] PRN Reason: Protocol Last Admin: 10/24/17 12:52 Dose: 3 units Morphine Sulfate (Ms Contin -) 60 mg PO BID [facility] Last Admin: 10/24/17 12:35 Dose: Not Given Mupirocin (Bactroban Ointment (For Decolonization) -) 1 applic NS BID [facility] Stop: 10/27/17 21:59 Last Admin: 10/24/17 09:27 Dose: 1 applic Non-Formulary Medication (Denosumab) 120 mg SQ Q30D [facility] Oseltamivir Phosphate (Tamiflu -) 75 mg PO BID [facility] Stop: 10/28/17 09:59 Last Admin: 10/24/17 12:35 Dose: 75 mg Pantoprazole Sodium (Protonix -) 40 mg PO DAILY [facility] Last Admin: 10/24/17 09:28 Dose: 40 mg Polyethylene Glycol (Miralax (For Daily Use) -) 17 gm PO DAILY [facility] Last Admin: 10/24/17 09:28 Dose: 17 grams Pregabalin (Lyrica -) 150 mg PO TID [facility] Last Admin: 10/24/17 06:10 Dose: 150 mg Saliva Substitute (Mouthkote Solution -) 1 applic MM DAILY [facility] Last Admin: 10/24/17 09:28 Dose: 1 applic Venlafaxine HCl (Effexor Xr -) 75 mg PO DAILY [facility] Last Admin: 10/24/17 12:53 Dose: 75 mg ASSESSMENT AND PLAN: Acute Hypoxic Respiratory Failure r/o Pneumonia r/o Influenza Severe Sepsis h/o PE Metastatic Prostate Ca DM - continue antibiotics - continue empiric tamiflu - f/u cultures - O2 to keep SpO2 >90% - IVF boluses PRN, d/c standing IVF - titrate dopamine gtt to maintain MAP >65 - monitor urine output, creatinine - continue anticoagulation - PO as tolerated - continue ICU monitoring critical care time spent in reviewing chart, evaluating patient and formulating plan 35 min
[2017-10-24] MEDS ORDERED: NAPH,MB-DB/K PH,MBDB POWDER PACKET PO ONE (15:30)
--- NOTE | 2017-10-24 16:41 | PN ---
Progress Note (short form) - Note Progress Note: Subjective: The patient was seen and examined at the bedside, he reports not feeling well today Current Medications Generic Name Dose Route Start Last Admin Trade Name Sujey PRN Reason Stop Dose Admin Ascorbic Acid 500 mg 10/23/17 10:00 10/24/17 09:28 Vitamin C - PO 500 mg DAILY MANNY Administration Calcium Carbonate 500 mg 10/23/17 10:00 10/24/17 12:35 Os-Jamar 500mg - PO 500 mg DAILY MANNY Administration Chlorhexidine Gluconate 1 applic 10/22/17 22:00 10/23/17 22:07 Hibiclens For Decolonization - TP 1 applic HS MANNY Administration Dipyridamole/Aspirin 1 combo 10/22/17 22:00 10/24/17 12:35 Aggrenox - PO 1 combo BID MANNY Administration Docusate Sodium 300 mg 10/22/17 22:00 10/23/17 22:07 Colace - PO 300 mg HS MANNY Administration Enoxaparin Sodium 80 mg 10/22/17 22:00 10/24/17 09:27 Lovenox - SQ 80 mg BID MANNY Administration Guaifenesin 10 ml 10/23/17 00:00 10/24/17 16:30 Robitussin - PO 10 ml Q6HPO MANNY Administration CEFTRIAXONE 1 G/50 ML PREMIX 50 mls @ 100 mls/hr 10/23/17 10:00 10/24/17 09: 27 Ceftriaxone 1 Gm-D5w Bag IVPB 100 mls/hr DAILY MANNY Administration Dopamine HCl/Dextrose 400,000 mcg in 250 mls @ 14.765 mls/hr 10/23/17 20:00 10/23/17 20:05 Dopamine 400 Mg/D5w - IVPB 5 mcg/kg/min TITR MANNY 14.765 mls/hr Protocol Administration 5 MCG/KG/MIN Insulin Aspart 1 vial 10/23/17 22:00 10/23/17 23:13 Novolog Vial Sliding Scale - SQ Not Given HS MANNY Protocol Insulin Aspart 1 vial 10/23/17 07:00 10/24/17 12:52 Novolog Vial Sliding Scale - SQ 3 units TIDAC MANNY Administration Protocol Morphine Sulfate 60 mg 10/22/17 22:00 10/24/17 12:35 Ms Contin - PO Not Given BID MANNY Mupirocin 1 applic 10/22/17 22:00 10/24/17 09:27 Bactroban Ointment (For Decolonization) - NS 10/27/17 21:59 1 applic BID MANNY Administration Non-Formulary Medication 120 mg 10/22/17 13:15 Denosumab SQ Q30D MANNY Oseltamivir Phosphate 75 mg 10/23/17 10:00 10/24/17 12:35 Tamiflu - PO 10/28/17 09:59 75 mg BID MANNY Administration Pantoprazole Sodium 40 mg 10/23/17 11:30 10/24/17 09:28 Protonix - PO 40 mg DAILY MANNY Administration Polyethylene Glycol 17 gm 10/23/17 10:00 10/24/17 09:28 Miralax (For Daily Use) - PO 17 grams DAILY MANNY Administration Pregabalin 150 mg 10/22/17 14:00 10/24/17 16:28 Lyrica - PO 150 mg TID AMNNY Administration Saliva Substitute 1 applic 10/23/17 19:45 10/24/17 09:28 Mouthkote Solution - MM 1 applic DAILY MANNY Administration Venlafaxine HCl 75 mg 10/23/17 10:00 10/24/17 12:53 Effexor Xr - PO 75 mg DAILY MANNY Administration Objective: Vital Signs Period Temp Pulse Resp BP Sys/Kim Pulse Ox Last 24 Hr 98.4 F-98.9 F 73-97 16-28 78-146/39-88 94-95 Physical Exam: General: NAD, A&Ox1 (person only, thinks it is 2020) Lungs: B/l rhonchi, +cough Abd: Soft, non-tender, non-distended. Normoactive bowel sounds Ext: Warm, well-perfused. No edema CBCD WBC 8.9 K/mm3 (4.0-10.0) 10/24/17 05:05 RBC 2.93 M/mm3 (4.00-5.60) L 10/24/17 05:05 Hgb 9.4 GM/dL (11.7-16.9) L 10/24/17 05:05 Hct 28.7 % (35.4-49) L 10/24/17 05:05 MCV 97.9 fl (80-96) H 10/24/17 05:05 MCHC 32.7 g/dl (32.0-35.9) 10/24/17 05:05 RDW 15.5 % (11.9-15.9) 10/24/17 05:05 Plt Count 239 K/MM3 (134-434) 10/24/17 05:05 MPV 8.6 fl (7.5-11.1) 10/24/17 05:05 CMP Sodium 141 mmol/L (136-145) 10/24/17 05:05 Potassium 4.5 mmol/L (3.5-5.1) 10/24/17 05:05 Chloride 107 mmol/L (98-107) 10/24/17 05:05 Carbon Dioxide 25 mmol/L (21-32) 10/24/17 05:05 Anion Gap 9 (8-16) 10/24/17 05:05 BUN 18 mg/dL (7-18) 10/24/17 05:05 Creatinine 1.2 mg/dL (0.7-1.3) 10/24/17 05:05 Creat Clearance w eGFR 57.54 (>60) 10/24/17 05:05 Random Glucose 160 mg/dL (74-106) H D 10/24/17 05:05 Calcium 7.2 mg/dL (8.5-10.1) L 10/24/17 05:05 Total Bilirubin 0.2 mg/dL (0.2-1.0) D 10/24/17 05:05 AST 17 U/L (15-37) D 10/24/17 05:05 ALT 12 U/L (12-78) 10/24/17 05:05 Alkaline Phosphatase 172 U/L (45-117) H 10/24/17 05:05 Total Protein 6.1 g/dl (6.4-8.2) L 10/24/17 05:05 Albumin 2.1 g/dl (3.4-5.0) L 10/24/17 05:05 CARDIAC ENZYMES Creatine Kinase 16 IU/L (39-308) L 10/23/17 05:10 Troponin I < 0.02 ng/ml (0.00-0.05) D 10/23/17 05:10 Microbiology 10/24/17 06:15 Urine For Antigen Detection Legionella Antigen - Final 10/24/17 06:15 Urine For Antigen Detection Streptococcus pneumoniae Antigen (M - Final 10/22/17 10:08 Urine - Urine Clean Catch Urine Culture - Final Contaminated: Please Repeat 10/22/17 08:44 Blood - Peripheral Venous Blood Culture - Preliminary Staphylococcus Coagulase Neg 10/22/17 08:44 Blood - Peripheral Venous Blood Culture - Preliminary NO GROWTH OBTAINED AFTER 48 HOURS, INCUBATION TO CONTINUE FOR 3 DAYS. 10/22/17 09:10 Nasopharyngeal Swab Influenza Types A,B Antigen (TONNY) - Final 10/22/17 09:10 Nasopharyngeal Swab - Final Assessment: This is an 87 year old male with PMHx of NIDDM, metastatic prostate cancer on Xgeva, PE s/p IVC filter (on Lovenox), SBO, who presented to the ED with ongoing cough since 10/10/17 Plan: 1) Severe sepsis 2/2 viral syndrome vs. bacterial pneumonia - Weaned off dopamine - Clinically appears to be influenza despite negative swab - Continue Tamiflu - Continue empiric Ceftriaxone - Urine legionella ag negative - WBC wnl - Afebrile - Appreciate ID consult 2) NIDDM - BGM ACHS - ISS ACHS 3) Metastatic prostate cancer - Continue Xgeva 4) Hx of PE - Continue Lovenox 80mg sq bid - Has IVC filter 5) F/E/N: - Regular diet - Monitor electrolytes 6) Prophylaxis: - Lovenox 80mg sq bid 7) Dispo: - Requires continued inpatient care CODE STATUS: FULL CODE Visit type - Emergency Visit Emergency Visit: Yes ED Registration Date: 10/22/17 Care time: The patient presented to the Emergency Department on the above date and was hospitalized for further evaluation of their emergent condition. - New Patient This patient is new to me today: Yes Date on this admission: 10/25/17 - Critical Care Critical Care patient: No
--- NOTE | 2017-10-24 17:43 | EKG ---
Test Reason : Blood Pressure : / mmHG Vent. Rate : 104 BPM Atrial Rate : 104 BPM P-R Int : 000 ms QRS Dur : 098 ms QT Int : 320 ms P-R-T Axes : 000 -44 082 degrees QTc Int : 420 ms ? ACCELERATED JUNCTIONAL RHYTHM WITH RETROGRADE CONDUCTION LEFT AXIS DEVIATION MINIMAL VOLTAGE CRITERIA FOR LVH, MAY BE NORMAL VARIANT NONSPECIFIC ST AND T WAVE ABNORMALITY WHEN COMPARED WITH ECG OF 08-JUN-2017 10:54, JUNCTIONAL RHYTHM HAS REPLACED SINUS RHYTHM T WAVE INVERSION NO LONGER EVIDENT IN ANTERIOR LEADS QT HAS SHORTENED Confirmed by MD CHEO, ELENA ([id number]) on 10/24/2017 5:43:36 PM Referred By: MD MINOR Confirmed By:ELENA GRIDER MD
[2017-10-24] MEDS: DOPAMINE 400 MG/D5W - 400,000 MCG/250 ML INFUS.BAG IVPB SCH (21:42)
[2017-10-24] MEDS: DOCUSATE SODIUM 100 MG CAPSULE (FP) PO SCH (21:56)
[2017-10-24] MEDS: CHLORHEXIDINE GLUCONATE 4% CLEANSER FOR DECOLONIZATION TP SCH (21:58)
[2017-10-25 06:15] LABS: BASO % 0.2 % (0-2.0); HEMATOCRIT 26.4 % (35.4-49); HEMOGLOBIN 8.6 GM/dL (11.7-16.9); LYMPH % 10.4 % (8-40); MCH 31.7 pg (25.7-33.7); MCHC 32.7 g/dl (32.0-35.9); MEAN CELL VOLUME 96.8 fl (80-96); MEAN PLT VOLUME 8.2 fl (7.5-11.1); MONO % 11.1 % (3.8-10.2); NEUT % 77.3 % (42.8-82.8); PLATELET COUNT 230 K/MM3 (134-434); RBC 2.72 M/mm3 (4.00-5.60); RDW 15.3 % (11.9-15.9); WHITE BLOOD COUNT 7.4 K/mm3 (4.0-10.0)
[2017-10-25] MEDS: PREGABALIN 50 MG CAPSULE PO SCH ×3 (06:25→21:50)
[2017-10-25] MEDS: INSULIN SLIDING SCALE (NOVOLOG) 1 VIAL SQ SCH ×4 (06:25→21:51)
[2017-10-25] MEDS: guaiFENesin 200 MG/10 ML 10 ML UNIT-DOSE CUPS PO SCH ×3 (06:25→17:57)
[2017-10-25 07:12] LABS: ALBUMIN 1.8 g/dl (3.4-5.0); ALK PHOS 153 U/L (45-117); ANION GAP 8 (8-16); BILIRUBIN,TOTAL 0.2 mg/dL (0.2-1.0); BLOOD UREA NITROGEN 17 mg/dL (7-18); CALCIUM 7.1 mg/dL (8.5-10.1); CHLORIDE 109 mmol/L (98-107); CO2 25 mmol/L (21-32); GLUCOSE,RANDOM 132 mg/dL (74-106); MAGNESIUM 1.9 mg/dL (1.8-2.4); PHOSPHOROUS 1.2 mg/dL (2.5-4.9); POTASSIUM 4.2 mmol/L (3.5-5.1); SGOT/AST 21 U/L (15-37); SGPT/ALT 14 U/L (12-78); SODIUM 142 mmol/L (136-145); TOT PROT 5.8 g/dl (6.4-8.2)
--- NOTE | 2017-10-25 07:52 | PN ---
Progress Note, Physician Chief Complaint: ID Voice stronger today Less couph Still congested - Current Medication List Current Medications: Active Medications Ascorbic Acid (Vitamin C -) 500 mg PO DAILY [facility] Last Admin: 10/24/17 09:28 Dose: 500 mg Calcium Carbonate (Os-Jamar 500mg -) 500 mg PO DAILY [facility] Last Admin: 10/24/17 12:35 Dose: 500 mg Chlorhexidine Gluconate (Hibiclens For Decolonization -) 1 applic TP HS [facility] Last Admin: 10/24/17 21:58 Dose: 1 applic Dipyridamole/Aspirin (Aggrenox -) 1 combo PO BID [facility] Last Admin: 10/24/17 22:37 Dose: 1 combo Docusate Sodium (Colace -) 300 mg PO [facility] Last Admin: 10/24/17 21:56 Dose: 300 mg Enoxaparin Sodium (Lovenox -) 80 mg SQ BID [facility] Last Admin: 10/24/17 21:56 Dose: 80 mg Guaifenesin (Robitussin -) 10 ml PO Q6HPO [facility] Last Admin: 10/25/17 06:25 Dose: 10 ml CEFTRIAXONE 1 G/50 ML PREMIX (Ceftriaxone 1 Gm-D5w Bag) 50 mls @ 100 mls/hr IVPB DAILY [facility] Last Admin: 10/24/17 09:27 Dose: 100 mls/hr Dopamine HCl/Dextrose (Dopamine 400 Mg/D5w -) 400,000 mcg in 250 mls @ 14.765 mls/hr IVPB TITR MANNY; 5 MCG/KG/MIN PRN Reason: Protocol Last Admin: 10/24/17 21:42 Dose: Not Given Insulin Aspart (Novolog Vial Sliding Scale -) 1 vial SQ HS [facility] PRN Reason: Protocol Last Admin: 10/24/17 21:57 Dose: Not Given Insulin Aspart (Novolog Vial Sliding Scale -) 1 vial SQ TIDAC [facility] PRN Reason: Protocol Last Admin: 10/25/17 06:25 Dose: Not Given Morphine Sulfate (Ms Contin -) 60 mg PO BID [facility] Last Admin: 10/24/17 21:56 Dose: 60 mg Mupirocin (Bactroban Ointment (For Decolonization) -) 1 applic NS BID [facility] Stop: 10/27/17 21:59 Last Admin: 10/24/17 21:58 Dose: 1 applic Non-Formulary Medication (Denosumab) 120 mg SQ Q30D [facility] Oseltamivir Phosphate (Tamiflu -) 75 mg PO BID [facility] Stop: 10/28/17 09:59 Last Admin: 10/24/17 21:57 Dose: 75 mg Pantoprazole Sodium (Protonix -) 40 mg PO DAILY [facility] Last Admin: 10/24/17 09:28 Dose: 40 mg Polyethylene Glycol (Miralax (For Daily Use) -) 17 gm PO DAILY [facility] Last Admin: 10/24/17 09:28 Dose: 17 grams Pregabalin (Lyrica -) 150 mg PO TID [facility] Last Admin: 10/25/17 06:25 Dose: 150 mg Saliva Substitute (Mouthkote Solution -) 1 applic MM DAILY [facility] Last Admin: 10/24/17 09:28 Dose: 1 applic Venlafaxine HCl (Effexor Xr -) 75 mg PO DAILY [facility] Last Admin: 10/24/17 12:53 Dose: 75 mg - Objective Vital Signs: Vital Signs Temperature 98.6 F 10/25/17 06:00 Pulse Rate 75 10/25/17 06:00 Respiratory Rate 16 10/25/17 06:00 Blood Pressure 122/59 10/25/17 06:00 O2 Sat by Pulse Oximetry (%) 95 10/24/17 21:00 Constitutional: Yes: No Distress Cardiovascular: Yes: Regular Rate and Rhythm, S1, S2. No: Murmur Respiratory: Yes: WNL, Regular, CTA Bilaterally, Rhonchi Gastrointestinal: Yes: WNL, Normal Bowel Sounds, Soft. No: Tenderness, Tenderness, Rebound Edema: No Labs: CBC, BMP 10/25/17 06:00 10/25/17 06:00 INR, PTT INR 1.24 (0.82-1.09) H 10/22/17 08:44 Problem List - Problems (1) Acute bronchitis Code(s): J20.9 - ACUTE BRONCHITIS, UNSPECIFIED Qualifiers: Bronchitis organism: unspecified organism Qualified Code(s): J20.9 - Acute bronchitis, unspecified (2) Primary prostate cancer with metastasis from prostate to other site Code(s): C61 - MALIGNANT NEOPLASM OF PROSTATE (3) Pulmonary embolism Code(s): I26.99 - OTHER PULMONARY EMBOLISM WITHOUT ACUTE COR PULMONALE Qualifiers: Chronicity: chronic Acute cor pulmonale presence: without acute cor pulmonale (4) Influenza Code(s): J11.1 - FLU DUE TO UNIDENTIFIED INFLUENZA VIRUS W OTH RESP MANIFEST Assessment/Plan Microbiology 10/24/17 06:15 Urine For Antigen Detection Legionella Antigen - Final 10/24/17 06:15 Urine For Antigen Detection Streptococcus pneumoniae Antigen (M - Final Laboratory Tests 10/25/17 10/25/17 06:00 06:00 WBC 7.4 Hgb 8.6 L Plt Count 230 BUN 17 Creatinine 1.0 Creat Clearance w eGFR > 60 Assessment Acute bronchitis > pneumonia ? Empiric treatment Influenza Plan Viral culture pending Continue current antibiotic Amrita THOMAS
[2017-10-25] MEDS ORDERED: NAPH,MB-DB/K PH,MBDB POWDER PACKET PO ONE ×2 (08:30→11:30)
[2017-10-25] MEDS: morphine SO4 SUSTAINED ACTING 30 MG TABLET.SA PO SCH ×2 (11:11→21:49)
[2017-10-25] MEDS: OSELTAMIVIR PHOSPHATE 75 MG CAPSULE PO SCH ×2 (11:11→21:52)
[2017-10-25] MEDS: ASCORBIC ACID 500 MG TABLET (FP) PO SCH (11:11)
[2017-10-25] MEDS: CALCIUM (OYSTER SHELL) 500 MG TABLET (FP) PO SCH (11:12)
[2017-10-25] MEDS: CEFTRIAXONE 1 G/50 ML PREMIX 50 ML IVPB SCH (11:13)
[2017-10-25] MEDS: ASPIRIN/DIPYRIDAMOLE 25 MG/200 MG CAPSULE (FP) PO SCH (11:13)
[2017-10-25] MEDS: MUPIROCIN 2% TOPICAL OINTMENT FOR DECOLONIZATION NS SCH ×2 (11:13→21:54)
[2017-10-25] MEDS: ENOXAPARIN NA (PORCINE) 80 MG/0.8 ML DISP.SYRIN SQ SCH ×2 (11:14→21:50)
[2017-10-25] MEDS: LYTES/YERBA SANTA 240 ML BOTTLE MM SCH (11:14)
[2017-10-25] MEDS: PANTOPRAZOLE 40 MG TABLET (FP) PO SCH (11:15)
[2017-10-25] MEDS ORDERED: INSULIN (NOVOLOG) ASPART 100 UNITS/ML 10ML VIAL ONE ×2 (11:28→11:32)
[2017-10-25] MEDS: POLYETHYLENE GLYCOL 3350 119 GM BTL PO SCH (11:36)
[2017-10-25] MEDS ORDERED: SODIUM CHLORIDE 1,000 ML IV SCH ×2 (12:00→19:12)
[2017-10-25] MEDS: VENLAFAXINE HCL 75 MG E.R. CAPSULES (FP) PO SCH (12:00)
--- NOTE | 2017-10-25 12:02 | PN ---
Physical Exam: SUBJECTIVE: Patient seen and examined The patient is an 87 year old male with a history of metastatic prostate CA, PE on lovenox and s/p filter, DM who presented for generalized weakness with cough and AMS who was admitted to the ICU for hypotension and respiratory distress due to chf exacerbation vs. pneumonia. The patient reports continued improvement in his symptoms, but still complains of some cough. Patient was taken off dopamine yesterday afternoon and has maintained stable blood pressures without the need for pressors. Otherwise no acute events. OBJECTIVE: Vital Signs Period Temp Pulse Resp BP Sys/Kim Pulse Ox Last 24 Hr 98.4 F-99.5 F 60-97 16-28 95-146/43-81 95 GENERAL: The patient is awake, alert, and fully oriented, in no acute distress. HEAD: Normal with no signs of trauma. EYES: sclera anicteric, conjunctiva clear. No ptosis. ENT: nares patent, oropharynx clear without exudates, moist mucous membranes. NECK: Trachea midline, full range of motion, supple. LUNGS: Breath sounds equal, Rhonchi auscultated bilaterally, no wheezes, no accessory muscle use. HEART: Regular rate and rhythm, S1, S2 without murmur, rub or gallop. ABDOMEN: Soft, nontender, nondistended, normoactive bowel sounds, no guarding, no rebound, no hepatosplenomegaly, no masses. EXTREMITIES: 2+ pulses, warm, well-perfused, no edema. NEUROLOGICAL: Normal speech, gait not observed. PSYCH: Normal mood, normal affect. SKIN: Warm, dry, normal turgor, no rashes or lesions noted Laboratory Results - last 24 hr 10/24/17 10/24/17 10/24/17 05:05 12:15 12:44 WBC RBC Hgb Hct MCV MCH MCHC RDW Plt Count MPV Neutrophils % Lymphocytes % Monocytes % Eosinophils % Basophils % Sodium 141 Potassium 4.5 Chloride 107 Carbon Dioxide 25 Anion Gap 9 BUN 18 Creatinine 1.2 Creat Clearance w eGFR 57.54 POC Glucometer [phone] Random Glucose 160 H D Calcium 7.2 L Phosphorus 1.6 L Cancelled Magnesium 1.8 Cancelled Total Bilirubin 0.2 D AST 17 D ALT 12 Alkaline Phosphatase 172 H Total Protein 6.1 L Albumin 2.1 L 10/24/17 10/25/17 10/25/17 17:06 06:00 06:00 WBC 7.4 RBC 2.72 L Hgb 8.6 L Hct 26.4 L MCV 96.8 H MCH 31.7 MCHC 32.7 RDW 15.3 Plt Count 230 MPV 8.2 Neutrophils % 77.3 Lymphocytes % 10.4 D Monocytes % 11.1 H Eosinophils % 1.0 Basophils % 0.2 Sodium 142 Potassium 4.2 Chloride 109 H Carbon Dioxide 25 Anion Gap 8 BUN 17 Creatinine 1.0 Creat Clearance w eGFR > 60 POC Glucometer [phone] Random Glucose 132 H Calcium 7.1 L Phosphorus 1.2 L D Magnesium 1.9 Total Bilirubin 0.2 AST 21 D ALT 14 Alkaline Phosphatase 153 H Total Protein 5.8 L Albumin 1.8 L Active Medications Generic Name Dose Route Start Last Admin Trade Name Freq PRN Reason Stop Dose Admin Ascorbic Acid 500 mg 10/23/17 10:00 10/25/17 11:11 Vitamin C - PO 500 mg DAILY MANNY Administration Calcium Carbonate 500 mg 10/23/17 10:00 10/25/17 11:12 Os-Jamar 500mg - PO 500 mg DAILY MANNY Administration Chlorhexidine Gluconate 1 applic 10/22/17 22:00 10/24/17 21:58 Hibiclens For Decolonization - TP 1 applic HS MANNY Administration Dipyridamole/Aspirin 1 combo 10/22/17 22:00 10/25/17 11:13 Aggrenox - PO 1 combo BID MANNY Administration Docusate Sodium 300 mg 10/22/17 22:00 10/24/17 21:56 Colace - PO 300 mg HS MANNY Administration Enoxaparin Sodium 80 mg 10/22/17 22:00 10/25/17 11:14 Lovenox - SQ 80 mg BID MANNY Administration Guaifenesin 10 ml 10/23/17 00:00 10/25/17 11:18 Robitussin - PO 10 ml Q6HPO MANNY Administration CEFTRIAXONE 1 G/50 ML PREMIX 50 mls @ 100 mls/hr 10/23/17 10:00 10/25/17 11: 13 Ceftriaxone 1 Gm-D5w Bag IVPB 100 mls/hr DAILY MANNY Administration Dopamine HCl/Dextrose 400,000 mcg in 250 mls @ 14.765 mls/hr 10/23/17 20:00 10/24/17 21:42 Dopamine 400 Mg/D5w - IVPB Not Given TITR MANNY Protocol 5 MCG/KG/MIN Sodium Chloride 1,000 mls @ 100 mls/hr 10/25/17 12:00 Normal Saline - IV ASDIR MANNY Insulin Aspart 1 vial 10/23/17 22:00 10/24/17 21:57 Novolog Vial Sliding Scale - SQ Not Given HS MANNY Protocol Insulin Aspart 1 vial 10/23/17 07:00 10/25/17 11:30 Novolog Vial Sliding Scale - SQ 2 units TIDAC MANNY Administration Protocol Morphine Sulfate 60 mg 10/22/17 22:00 10/25/17 11:11 Ms Contin - PO 60 mg BID MANNY Administration Mupirocin 1 applic 10/22/17 22:00 10/25/17 11:13 Bactroban Ointment (For Decolonization) - NS 10/27/17 21:59 1 applic BID MANNY Administration Non-Formulary Medication 120 mg 10/22/17 13:15 Denosumab SQ Q30D MANNY Oseltamivir Phosphate 75 mg 10/23/17 10:00 10/25/17 11:11 Tamiflu - PO 10/28/17 09:59 75 mg BID MANNY Administration Pantoprazole Sodium 40 mg 10/23/17 11:30 10/25/17 11:15 Protonix - PO 40 mg DAILY MANNY Administration Polyethylene Glycol 17 gm 10/23/17 10:00 10/25/17 11:36 Miralax (For Daily Use) - PO 17 grams DAILY MANNY Administration Pregabalin 150 mg 10/22/17 14:00 10/25/17 06:25 Lyrica - PO 150 mg TID MANNY Administration Saliva Substitute 1 applic 10/23/17 19:45 10/25/17 11:14 Mouthkote Solution - MM 1 applic DAILY MANNY Administration Venlafaxine HCl 75 mg 10/23/17 10:00 10/24/17 12:53 Effexor Xr - PO 75 mg DAILY MANNY Administration ASSESSMENT/PLAN: The patient is an 87 year old male with a history of metastatic prostate CA, PE on lovenox and s/p filter, DM who presented for generalized weakness with cough and AMS who was admitted to the ICU for hypotension and respiratory distress due to chf exacerbation vs. pneumonia. NEURO No issues currently. -Awake, oriented, RESPIRATORY #Hypoxic respiratory distress -Continue NC O2 support as needed for O2 sat 92% -Continue Ceftriaxone empirically -Will obtain daily CXR CV #Hypotension due to infection vs. chf -Improved with stable blood pressures off dopamine. -Will restart maintenance fluids. #CHF -Continue to monitor I&O -Continue Lovenox for h/o of PE, thrombectomy in 05/23 -We will hold standing iv fluids and only bolus as needed. GI Contiue protonix 40mg daily. 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 DVT PPX: -Continue lovenox 80 BID. DISPO: Stable for transfer to telemetry floor. Visit type - Emergency Visit Emergency Visit: No - New Patient This patient is new to me today: No - Critical Care Critical Care patient: No
--- NOTE | 2017-10-25 12:29 | PN ---
Teaching Attending Note Name of Resident: Tucker Peña ATTENDING PHYSICIAN STATEMENT I saw and evaluated the patient. I reviewed the resident's note and discussed the case with the resident. I agree with the resident's findings and plan as documented. SUBJECTIVE: Patient seen and examined in the ICU. Currently off Dopamine drip. Breathing feels about the same. (+) congested cough. OBJECTIVE: Intake & Output 10/22/17 10/23/17 10/24/17 10/25/17 23:59 23:59 23:59 23:59 Intake Total 6049 566 9198 Output Total 1180 1525 2100 Balance 770 -1025 612 Weight 173 lb 9.6 oz 176 lb 5 oz 178 lb 1 oz Last Vital Signs Temp Pulse Resp BP Pulse Ox 99.5 F 60 16 95/46 95 10/25/17 10:35 10/25/17 10:35 10/25/17 08:49 10/25/17 10:35 10/24/17 21:00 Active Medications Ascorbic Acid (Vitamin C -) 500 mg PO DAILY [facility] Last Admin: 10/25/17 11:11 Dose: 500 mg Calcium Carbonate (Os-Jamar 500mg -) 500 mg PO DAILY [facility] Last Admin: 10/25/17 11:12 Dose: 500 mg Chlorhexidine Gluconate (Hibiclens For Decolonization -) 1 applic TP HS [facility] Last Admin: 10/24/17 21:58 Dose: 1 applic Dipyridamole/Aspirin (Aggrenox -) 1 combo PO BID [facility] Last Admin: 10/25/17 11:13 Dose: 1 combo Docusate Sodium (Colace -) 300 mg PO HS [facility] Last Admin: 10/24/17 21:56 Dose: 300 mg Enoxaparin Sodium (Lovenox -) 80 mg SQ BID [facility] Last Admin: 10/25/17 11:14 Dose: 80 mg Guaifenesin (Robitussin -) 10 ml PO Q6HPO [facility] Last Admin: 10/25/17 11:18 Dose: 10 ml CEFTRIAXONE 1 G/50 ML PREMIX (Ceftriaxone 1 Gm-D5w Bag) 50 mls @ 100 mls/hr IVPB DAILY [facility] Last Admin: 10/25/17 11:13 Dose: 100 mls/hr Dopamine HCl/Dextrose (Dopamine 400 Mg/D5w -) 400,000 mcg in 250 mls @ 14.765 mls/hr IVPB TITR MANNY; 5 MCG/KG/MIN PRN Reason: Protocol Last Admin: 10/24/17 21:42 Dose: Not Given Sodium Chloride (Normal Saline -) 1,000 mls @ 100 mls/hr IV ASDIR [facility] Last Admin: 10/25/17 12:14 Dose: 100 mls/hr Insulin Aspart (Novolog Vial Sliding Scale -) 1 vial SQ HS [facility] PRN Reason: Protocol Last Admin: 10/24/17 21:57 Dose: Not Given Insulin Aspart (Novolog Vial Sliding Scale -) 1 vial SQ TIDAC MANNY PRN Reason: Protocol Last Admin: 10/25/17 11:30 Dose: 2 units Morphine Sulfate (Ms Contin -) 60 mg PO BID [facility] Last Admin: 10/25/17 11:11 Dose: 60 mg Mupirocin (Bactroban Ointment (For Decolonization) -) 1 applic NS BID [facility] Stop: 10/27/17 21:59 Last Admin: 10/25/17 11:13 Dose: 1 applic Non-Formulary Medication (Denosumab) 120 mg SQ Q30D [facility] Oseltamivir Phosphate (Tamiflu -) 75 mg PO BID [facility] Stop: 10/28/17 09:59 Last Admin: 10/25/17 11:11 Dose: 75 mg Pantoprazole Sodium (Protonix -) 40 mg PO DAILY [facility] Last Admin: 10/25/17 11:15 Dose: 40 mg Polyethylene Glycol (Miralax (For Daily Use) -) 17 gm PO DAILY [facility] Last Admin: 10/25/17 11:36 Dose: 17 grams Pregabalin (Lyrica -) 150 mg PO TID [facility] Last Admin: 10/25/17 06:25 Dose: 150 mg Saliva Substitute (Mouthkote Solution -) 1 applic MM DAILY [facility] Last Admin: 10/25/17 11:14 Dose: 1 applic Venlafaxine HCl (Effexor Xr -) 75 mg PO DAILY [facility] Last Admin: 10/24/17 12:53 Dose: 75 mg Gen: mildly tachypneic at rest Heart: RRR Lung: bibasilar rhonchi, rales Abd: soft, nontender Ext: dependent edema ASSESSMENT AND PLAN: Acute Hypoxic Respiratory Failure r/o Pneumonia r/o Influenza Severe Sepsis h/o PE Metastatic Prostate Ca DM - BX per ID - Tamiflu - O2 to keep SpO2 >90% - Maintenance IVF - Monitor off Dopamine drip - monitor urine output, creatinine - AC - PO as tolerated - Cardiac Telemetry monitoring Dr Merchant Critical care time spent in reviewing chart, evaluating patient and formulating plan 36 min
--- NOTE | 2017-10-25 12:38 | PN ---
Progress Note, Physician History of Present Illness: Occasional cough, dyspnea resolved, remains hemodynamically stable off dopamine gtt. - Current Medication List Current Medications: Active Medications Ascorbic Acid (Vitamin C -) 500 mg PO DAILY [facility] Last Admin: 10/25/17 11:11 Dose: 500 mg Calcium Carbonate (Os-Jamar 500mg -) 500 mg PO DAILY [facility] Last Admin: 10/25/17 11:12 Dose: 500 mg Chlorhexidine Gluconate (Hibiclens For Decolonization -) 1 applic TP [facility] Last Admin: 10/24/17 21:58 Dose: 1 applic Dipyridamole/Aspirin (Aggrenox -) 1 combo PO BID [facility] Last Admin: 10/25/17 11:13 Dose: 1 combo Docusate Sodium (Colace -) 300 mg PO [facility] Last Admin: 10/24/17 21:56 Dose: 300 mg Enoxaparin Sodium (Lovenox -) 80 mg SQ BID [facility] Last Admin: 10/25/17 11:14 Dose: 80 mg Guaifenesin (Robitussin -) 10 ml PO Q6HPO [facility] Last Admin: 10/25/17 11:18 Dose: 10 ml CEFTRIAXONE 1 G/50 ML PREMIX (Ceftriaxone 1 Gm-D5w Bag) 50 mls @ 100 mls/hr IVPB DAILY [facility] Last Admin: 10/25/17 11:13 Dose: 100 mls/hr Dopamine HCl/Dextrose (Dopamine 400 Mg/D5w -) 400,000 mcg in 250 mls @ 14.765 mls/hr IVPB TITR MANNY; 5 MCG/KG/MIN PRN Reason: Protocol Last Admin: 10/24/17 21:42 Dose: Not Given Sodium Chloride (Normal Saline -) 1,000 mls @ 100 mls/hr IV ASDIR [facility] Last Admin: 10/25/17 12:14 Dose: 100 mls/hr Insulin Aspart (Novolog Vial Sliding Scale -) 1 vial SQ HS [facility] PRN Reason: Protocol Last Admin: 10/24/17 21:57 Dose: Not Given Insulin Aspart (Novolog Vial Sliding Scale -) 1 vial SQ TIDAC [facility] PRN Reason: Protocol Last Admin: 10/25/17 11:30 Dose: 2 units Morphine Sulfate (Ms Contin -) 60 mg PO BID [facility] Last Admin: 10/25/17 11:11 Dose: 60 mg Mupirocin (Bactroban Ointment (For Decolonization) -) 1 applic NS BID [facility] Stop: 10/27/17 21:59 Last Admin: 10/25/17 11:13 Dose: 1 applic Non-Formulary Medication (Denosumab) 120 mg SQ Q30D [facility] Oseltamivir Phosphate (Tamiflu -) 75 mg PO BID [facility] Stop: 10/28/17 09:59 Last Admin: 10/25/17 11:11 Dose: 75 mg Pantoprazole Sodium (Protonix -) 40 mg PO DAILY [facility] Last Admin: 10/25/17 11:15 Dose: 40 mg Polyethylene Glycol (Miralax (For Daily Use) -) 17 gm PO DAILY [facility] Last Admin: 10/25/17 11:36 Dose: 17 grams Pregabalin (Lyrica -) 150 mg PO TID [facility] Last Admin: 10/25/17 06:25 Dose: 150 mg Saliva Substitute (Mouthkote Solution -) 1 applic MM DAILY [facility] Last Admin: 10/25/17 11:14 Dose: 1 applic Venlafaxine HCl (Effexor Xr -) 75 mg PO DAILY [facility] Last Admin: 10/24/17 12:53 Dose: 75 mg - Objective Vital Signs: Vital Signs Temperature 99.5 F 10/25/17 10:35 Pulse Rate 60 10/25/17 10:35 Respiratory Rate 16 10/25/17 08:49 Blood Pressure 95/46 10/25/17 10:35 O2 Sat by Pulse Oximetry (%) 95 10/24/17 21:00 Constitutional: Yes: No Distress, Calm Neck: Yes: Supple Cardiovascular: Yes: Regular Rate and Rhythm Respiratory: Yes: Regular, Cough, Diminished, On Nasal O2 Gastrointestinal: Yes: Normal Bowel Sounds, Soft Edema: No Labs: CBC, BMP 10/25/17 06:00 10/25/17 06:00 INR, PTT INR 1.24 (0.82-1.09) H 10/22/17 08:44 - ....Imaging Chest X-ray: Report Reviewed (Improved congestion) Problem List - Problems (1) [id number] kidney injury Code(s): N17.9 - ACUTE KIDNEY FAILURE, UNSPECIFIED; N18.9 - CHRONIC KIDNEY DISEASE, UNSPECIFIED Qualifiers: Chronic kidney disease stage: stage 2 (mild) (2) Hypotension Code(s): I95.9 - HYPOTENSION, UNSPECIFIED Qualifiers: Hypotension type: other hypotension type Qualified Code(s): I95.89 - Other hypotension (3) Pulmonary embolism Code(s): I26.99 - OTHER PULMONARY EMBOLISM WITHOUT ACUTE COR PULMONALE Qualifiers: Chronicity: chronic Acute cor pulmonale presence: without acute cor pulmonale (4) DVT (deep venous thrombosis) Code(s): I82.409 - ACUTE EMBOLISM AND THOMBOS UNSP DEEP VN UNSP LOWER EXTREMITY Qualifiers: DVT location: lower extremity Affected thrombotic vein of extremity: popliteal Chronicity: acute Laterality: left Qualified Code(s): I82.432 - Acute embolism and thrombosis of left popliteal vein (5) Prostate cancer metastatic to bone Code(s): C61 - MALIGNANT NEOPLASM OF PROSTATE; C79.51 - SECONDARY MALIGNANT NEOPLASM OF BONE (6) Weakness Code(s): R53.1 - WEAKNESS (7) Chronic anticoagulation Code(s): Z79.01 - PRISON (CURRENT) USE OF ANTICOAGULANTS Assessment/Plan 10/22/2017 Echo: Normal biventricular size and fxn, mild TR 1. Acute Hypoxic Respiratory Failure, r/o PNA, Influenza, post septic shock 2. 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 DVT - left popliteal vein post IVC filter insertion 6. History of metastatic prostate carcinoma on monoclonal ab 7. Acute on CKD improved 8. Anemia PLAN: 1. Observe hemodynamics off dopamine gtt 2. Tamiflu and abx course per ID, f/u C&S 3. Continue long-term Lovenox 80 bid considering his met prostate ca history, d/ c Aggrenox bid without h/o CVA 4. Monitor CBC closely and transfuse as needed to maintain Hg equal or > 8.0 5. BD, O2 to keep SpO2 >90%,
--- NOTE | 2017-10-25 14:14 | PN ---
Progress Note (short form) - Note Progress Note: Subjective: The patient was seen and examined at the bedside, he reports he would like to get out of bed. He states he is feeling slightly better than yesterday Current Medications Generic Name Dose Route Start Last Admin Trade Name Sujey PRN Reason Stop Dose Admin Ascorbic Acid 500 mg 10/23/17 10:00 10/25/17 11:11 Vitamin C - PO 500 mg DAILY [facility] Administration Calcium Carbonate 500 mg 10/23/17 10:00 10/25/17 11:12 Os-Jamar 500mg - PO 500 mg DAILY [facility] Administration Chlorhexidine Gluconate 1 applic 10/22/17 22:00 10/24/17 21:58 Hibiclens For Decolonization - TP 1 applic HS [facility] Administration Docusate Sodium 300 mg 10/22/17 22:00 10/24/17 21:56 Colace - PO 300 mg HS [facility] Administration Enoxaparin Sodium 80 mg 10/22/17 22:00 10/25/17 11:14 Lovenox - SQ 80 mg BID [facility] Administration Guaifenesin 10 ml 10/23/17 00:00 10/25/17 11:18 Robitussin - PO 10 ml Q6HPO [facility] Administration CEFTRIAXONE 1 G/50 ML PREMIX 50 mls @ 100 mls/hr 10/23/17 10:00 10/25/17 11: 13 Ceftriaxone 1 Gm-D5w Bag IVPB 100 mls/hr DAILY [facility] Administration Dopamine HCl/Dextrose 400,000 mcg in 250 mls @ 14.765 mls/hr 10/23/17 20:00 10/24/17 21:42 Dopamine 400 Mg/D5w - IVPB Not Given TITR MAN[facility] Protocol 5 MCG/KG/MIN Sodium Chloride 1,000 mls @ 100 mls/hr 10/25/17 12:00 10/25/17 12:14 Normal Saline - IV 100 mls/hr ASDIR [facility] Administration Insulin Aspart 1 vial 10/23/17 22:00 10/24/17 21:57 Novolog Vial Sliding Scale - SQ Not Given HS [facility] Protocol Insulin Aspart 1 vial 10/23/17 07:00 10/25/17 11:30 Novolog Vial Sliding Scale - SQ 2 units TIDAC [facility] Administration Protocol Morphine Sulfate 60 mg 10/22/17 22:00 10/25/17 11:11 Ms Contin - PO 60 mg BID [facility] Administration Mupirocin 1 applic 10/22/17 22:00 10/25/17 11:13 Bactroban Ointment (For Decolonization) - NS 10/27/17 21:59 1 applic BID [facility] Administration Non-Formulary Medication 120 mg 10/22/17 13:15 Denosumab SQ Q30D [facility] Oseltamivir Phosphate 75 mg 10/23/17 10:00 10/25/17 11:11 Tamiflu - PO 10/28/17 09:59 75 mg BID [facility] Administration Pantoprazole Sodium 40 mg 10/23/17 11:30 10/25/17 11:15 Protonix - PO 40 mg DAILY [facility] Administration Polyethylene Glycol 17 gm 10/23/17 10:00 10/25/17 11:36 Miralax (For Daily Use) - PO 17 grams DAILY [facility] Administration Pregabalin 150 mg 10/22/17 14:00 10/25/17 06:25 Lyrica - PO 150 mg TID [facility] Administration Saliva Substitute 1 applic 10/23/17 19:45 10/25/17 11:14 Mouthkote Solution - MM 1 applic DAILY [facility] Administration Venlafaxine HCl 75 mg 10/23/17 10:00 10/24/17 12:53 Effexor Xr - PO 75 mg DAILY [facility] Administration Objective: Vital Signs Period Temp Pulse Resp BP Sys/Kim Pulse Ox Last 24 Hr 98.4 F-99.5 F 60-97 16-26 90-133/43-81 95 Physical Exam: General: NAD, A&Ox2 (person, time, knows he is in a hospital) Heart: RRR, S1S2 Lungs: B/l rhonchi, +cough Abd: Soft, non-tender, non-distended. Normoactive bowel sounds Ext: Warm, well-perfused. No edema CBCD WBC 7.4 K/mm3 (4.0-10.0) 10/25/17 06:00 RBC 2.72 M/mm3 (4.00-5.60) L 10/25/17 06:00 Hgb 8.6 GM/dL (11.7-16.9) L 10/25/17 06:00 Hct 26.4 % (35.4-49) L 10/25/17 06:00 MCV 96.8 fl (80-96) H 10/25/17 06:00 MCHC 32.7 g/dl (32.0-35.9) 10/25/17 06:00 RDW 15.3 % (11.9-15.9) 10/25/17 06:00 Plt Count 230 K/MM3 (134-434) 10/25/17 06:00 MPV 8.2 fl (7.5-11.1) 10/25/17 06:00 CMP Sodium 142 mmol/L (136-145) 10/25/17 06:00 Potassium 4.2 mmol/L (3.5-5.1) 10/25/17 06:00 Chloride 109 mmol/L (98-107) H 10/25/17 06:00 Carbon Dioxide 25 mmol/L (21-32) 10/25/17 06:00 Anion Gap 8 (8-16) 10/25/17 06:00 BUN 17 mg/dL (7-18) 10/25/17 06:00 Creatinine 1.0 mg/dL (0.7-1.3) 10/25/17 06:00 Creat Clearance w eGFR > 60 (>60) 10/25/17 06:00 Random Glucose 132 mg/dL (74-106) H 10/25/17 06:00 Calcium 7.1 mg/dL (8.5-10.1) L 10/25/17 06:00 Total Bilirubin 0.2 mg/dL (0.2-1.0) 10/25/17 06:00 AST 21 U/L (15-37) D 10/25/17 06:00 ALT 14 U/L (12-78) 10/25/17 06:00 Alkaline Phosphatase 153 U/L (45-117) H 10/25/17 06:00 Total Protein 5.8 g/dl (6.4-8.2) L 10/25/17 06:00 Albumin 1.8 g/dl (3.4-5.0) L 10/25/17 06:00 CARDIAC ENZYMES Creatine Kinase 16 IU/L (39-308) L 10/23/17 05:10 Troponin I < 0.02 ng/ml (0.00-0.05) D 10/23/17 05:10 Microbiology 10/22/17 08:44 Blood - Peripheral Venous Blood Culture - Final Staphylococcus Epidermidis 10/24/17 19:00 Urine For Antigen Detection Legionella Antigen - Final 10/24/17 19:00 Urine For Antigen Detection Streptococcus pneumoniae Antigen (M - Final 10/22/17 08:44 Blood - Peripheral Venous Blood Culture - Preliminary NO GROWTH OBTAINED AFTER 72 HOURS, INCUBATION TO CONTINUE FOR 2 DAYS. 10/24/17 06:15 Urine For Antigen Detection Legionella Antigen - Final 10/24/17 06:15 Urine For Antigen Detection Streptococcus pneumoniae Antigen (M - Final 10/22/17 10:08 Urine - Urine Clean Catch Urine Culture - Final Contaminated: Please Repeat 10/22/17 09:10 Nasopharyngeal Swab Influenza Types A,B Antigen (TONNY) - Final 10/22/17 09:10 Nasopharyngeal Swab - Final Assessment: This is an 87 year old male with PMHx of NIDDM, metastatic prostate cancer on Xgeva, PE s/p IVC filter (on Lovenox), SBO, who presented to the ED with ongoing cough since 10/10/17 Plan: 1) Severe sepsis 2/2 viral syndrome vs. bacterial pneumonia - Off dopamine - Clinically appears to be influenza despite negative swab - Continue Tamiflu - Continue empiric Ceftriaxone - Urine legionella ag negative - WBC wnl - Afebrile - Appreciate ID consult 2) NIDDM - BGM ACHS - ISS ACHS 3) Metastatic prostate cancer - Continue Xgeva 4) Hx of PE - Continue Lovenox 80mg sq bid - Has IVC filter 5) F/E/N: - Regular diet - Monitor electrolytes - Hypophosphatemia: replete 6) Prophylaxis: - Lovenox 80mg sq bid - PT evaluation 7) Dispo: - Requires continued inpatient care CODE STATUS: FULL CODE Visit type - Emergency Visit Emergency Visit: Yes ED Registration Date: 10/22/17 Care time: The patient presented to the Emergency Department on the above date and was hospitalized for further evaluation of their emergent condition. - New Patient This patient is new to me today: No - Critical Care Critical Care patient: No
[2017-10-25] MEDS ORDERED: DOPAMINE 400 MG/D5W - 400,000 MCG/250 ML INFUS.BAG IVPB SCH (19:12)
[2017-10-25] MEDS ORDERED: PT OWN MED DRAWER 7, Y5N ONE (21:43)
[2017-10-25] MEDS: DOCUSATE SODIUM 100 MG CAPSULE (FP) PO SCH (21:49)
[2017-10-25] MEDS: CHLORHEXIDINE GLUCONATE 4% CLEANSER FOR DECOLONIZATION TP SCH (21:52)
[2017-10-26] MEDS: guaiFENesin 200 MG/10 ML 10 ML UNIT-DOSE CUPS PO SCH ×4 (00:54→18:00)
[2017-10-26] MEDS: PREGABALIN 50 MG CAPSULE PO SCH ×3 (05:47→22:57)
[2017-10-26] MEDS: INSULIN SLIDING SCALE (NOVOLOG) 1 VIAL SQ SCH ×4 (06:02→22:57)
[2017-10-26 06:27] LABS: BASO % 0.2 % (0-2.0); EOS % 1.4 % (0-4.5); HEMATOCRIT 24.8 % (35.4-49); HEMOGLOBIN 8.2 GM/dL (11.7-16.9); MEAN CELL VOLUME 97.1 fl (80-96); MEAN PLT VOLUME 8.3 fl (7.5-11.1); MONO % 15.3 % (3.8-10.2); NEUT % 72.1 % (42.8-82.8); PLATELET COUNT 240 K/MM3 (134-434); RBC 2.55 M/mm3 (4.00-5.60); RDW 15.3 % (11.9-15.9); WHITE BLOOD COUNT 6.1 K/mm3 (4.0-10.0)
[2017-10-26 06:57] LABS: ALBUMIN 1.7 g/dl (3.4-5.0); ANION GAP 8 (8-16); BLOOD UREA NITROGEN 18 mg/dL (7-18); CHLORIDE 111 mmol/L (98-107); CO2 23 mmol/L (21-32); GLUCOSE,RANDOM 124 mg/dL (74-106); MAGNESIUM 1.8 mg/dL (1.8-2.4); POTASSIUM 4.7 mmol/L (3.5-5.1); SGOT/AST 35 U/L (15-37); SGPT/ALT 20 U/L (12-78); SODIUM 142 mmol/L (136-145)
[2017-10-26 07:04] LABS: ALK PHOS 247 U/L (45-117); BILIRUBIN,TOTAL 0.3 mg/dL (0.2-1.0); TOT PROT 5.4 g/dl (6.4-8.2)
[2017-10-26 07:23] LABS: CALCIUM 6.7 mg/dL (8.5-10.1); PHOSPHOROUS 1.1 mg/dL (2.5-4.9)
[2017-10-26] MEDS ORDERED: PT OWN MED DRAWER 7, Y5N ONE ×3 (09:48→22:15)
[2017-10-26] MEDS ORDERED: VENLAFAXINE HCL 75 MG E.R. CAPSULES (FP) PO SCH (10:00)
[2017-10-26] MEDS: morphine SO4 SUSTAINED ACTING 30 MG TABLET.SA PO SCH ×2 (10:07→22:57)
[2017-10-26] MEDS: OSELTAMIVIR PHOSPHATE 75 MG CAPSULE PO SCH ×2 (10:07→22:59)
[2017-10-26] MEDS: ASCORBIC ACID 500 MG TABLET (FP) PO SCH (10:07)
[2017-10-26] MEDS: PANTOPRAZOLE 40 MG TABLET (FP) PO SCH (10:08)
[2017-10-26] MEDS: LYTES/YERBA SANTA 240 ML BOTTLE MM SCH (10:08)
[2017-10-26] MEDS: POLYETHYLENE GLYCOL 3350 119 GM BTL PO SCH (10:08)
[2017-10-26] MEDS: ENOXAPARIN NA (PORCINE) 80 MG/0.8 ML DISP.SYRIN SQ SCH ×2 (10:09→22:56)
[2017-10-26] MEDS: CEFTRIAXONE 1 G/50 ML PREMIX 50 ML IVPB SCH (10:09)
[2017-10-26] MEDS: CALCIUM (OYSTER SHELL) 500 MG TABLET (FP) PO SCH (10:24)
[2017-10-26] MEDS: VENLAFAXINE HCL 75 MG E.R. CAPSULES (FP) PO SCH (10:24)
[2017-10-26] MEDS: MUPIROCIN 2% TOPICAL OINTMENT FOR DECOLONIZATION NS SCH ×2 (10:30→22:55)
--- NOTE | 2017-10-26 10:32 | PN ---
Progress Note (short form) - Note Progress Note: Patient seen and examined in the Cardiac Telemetry unit. Breathing feels about the same. Still with some congested cough. CXR: Improved fluid in the fissure / left base effusion/infiltrate OBJECTIVE: Gen: mildly tachypneic at rest Heart: RRR Lung: bibasilar rhonchi, rales Abd: soft, nontender Ext: dependent edema Laboratory Results - last 24 hr 10/25/17 10/25/17 10/26/17 11:25 17:56 05:30 WBC 6.1 RBC 2.55 L Hgb 8.2 L Hct 24.8 L MCV 97.1 H MCH 32.0 MCHC 33.0 RDW 15.3 Plt Count 240 MPV 8.3 Neutrophils % 72.1 Lymphocytes % 11.0 Monocytes % 15.3 H Eosinophils % 1.4 Basophils % 0.2 Sodium Potassium Chloride Carbon Dioxide Anion Gap BUN Creatinine Creat Clearance w eGFR POC Glucometer [phone] Random Glucose Calcium Phosphorus Magnesium Total Bilirubin AST ALT Alkaline Phosphatase Total Protein Albumin 10/26/17 05:30 WBC RBC Hgb Hct MCV MCH MCHC RDW Plt Count MPV Neutrophils % Lymphocytes % Monocytes % Eosinophils % Basophils % Sodium 142 Potassium 4.7 Chloride 111 H Carbon Dioxide 23 Anion Gap 8 BUN 18 Creatinine 1.0 Creat Clearance w eGFR > 60 POC Glucometer Random Glucose 124 H Calcium 6.7 L* Phosphorus 1.1 L* Magnesium 1.8 Total Bilirubin 0.3 D AST 35 D ALT 20 D Alkaline Phosphatase 247 H D Total Protein 5.4 L Albumin 1.7 L ASSESSMENT AND PLAN: Acute Hypoxic Respiratory Failure r/o Pneumonia r/o Influenza Severe Sepsis h/o PE Metastatic Prostate Ca DM - ABX per ID - Tamiflu - O2 to keep SpO2 >90% - Replete lytes - monitor urine output, creatinine - AC - PO as tolerated - Cardiac Telemetry monitoring Dr Merchant
--- NOTE | 2017-10-26 11:23 | PN ---
Progress Note (short form) - Note Progress Note: resting comfortably no complaints just got medicated for back pain- bony mets from prostate cancer Vital Signs Period Temp Pulse Resp BP Sys/Kim Pulse Ox Last 24 Hr 98.5 F-99.6 F 71-90 18-25 90-122/51-75 99 cor-rrr lungs decreased bs at bases abd soft,nt ext no edema CBC, BMP 10/26/17 05:30 10/26/17 05:30 Microbiology 10/22/17 08:44 Blood - Peripheral Venous Blood Culture - Preliminary NO GROWTH OBTAINED AFTER 96 HOURS, INCUBATION TO CONTINUE FOR 1 DAYS. 10/22/17 08:44 Blood - Peripheral Venous Blood Culture - Final Staphylococcus Epidermidis 10/24/17 19:00 Urine For Antigen Detection Legionella Antigen - Final 10/24/17 19:00 Urine For Antigen Detection Streptococcus pneumoniae Antigen (M - Final 10/24/17 06:15 Urine For Antigen Detection Legionella Antigen - Final 10/24/17 06:15 Urine For Antigen Detection Streptococcus pneumoniae Antigen (M - Final 10/22/17 10:08 Urine - Urine Clean Catch Urine Culture - Final Contaminated: Please Repeat 10/22/17 09:10 Nasopharyngeal Swab Influenza Types A,B Antigen (TONNY) - Final 10/22/17 09:10 Nasopharyngeal Swab - Final a/p ?pneumonia LLL bronchitis continue treatment for influenza and pneumonia tamiflu and rocephin to continue
[2017-10-26] MEDS ORDERED: SODIUM PHOSPHATE - 30 MM in SODIUM CHLORIDE 250 ML IVPB ONE (12:00)
--- NOTE | 2017-10-26 13:23 | PN ---
Progress Note (short form) - Note Progress Note: Subjective: The patient was seen and examined at the bedside, he reports feeling better today Current Medications Generic Name Dose Route Start Last Admin Trade Name Sujey PRN Reason Stop Dose Admin Ascorbic Acid 500 mg 10/26/17 10:00 10/26/17 10:07 Vitamin C - PO 500 mg DAILY [facility] Administration Calcium Carbonate 500 mg 10/26/17 10:00 10/26/17 10:24 Os-Jamar 500mg - PO 500 mg DAILY [facility] Administration Chlorhexidine Gluconate 1 applic 10/25/17 22:00 10/25/17 21:52 Hibiclens For Decolonization - TP Not Given HS [facility] Docusate Sodium 300 mg 10/25/17 22:00 10/25/17 21:49 Colace - PO 300 mg HS [facility] Administration Enoxaparin Sodium 80 mg 10/25/17 22:00 10/26/17 10:09 Lovenox - SQ 80 mg BID [facility] Administration Guaifenesin 10 ml 10/26/17 00:00 10/26/17 05:47 Robitussin - PO 10 ml Q6HPO [facility] Administration CEFTRIAXONE 1 G/50 ML PREMIX 50 mls @ 100 mls/hr 10/26/17 10:00 10/26/17 10: 09 Ceftriaxone 1 Gm-D5w Bag IVPB 100 mls/hr DAILY [facility] Administration Sodium Phosphate 30 mm/ Sodium 260 mls @ 62.5 mls/hr 10/26/17 12:00 Chloride IVPB 10/26/17 16:09 ONCE ONE Insulin Aspart 1 vial 10/25/17 22:00 10/25/17 21:51 Novolog Vial Sliding Scale - SQ Not Given HS [facility] Protocol Insulin Aspart 1 vial 10/26/17 07:00 10/26/17 12:52 Novolog Vial Sliding Scale - SQ 2 unit TIDAC [facility] Administration Protocol Morphine Sulfate 60 mg 10/25/17 22:00 10/26/17 10:07 Ms Contin - PO 60 mg BID [facility] Administration Mupirocin 1 applic 10/25/17 22:00 10/26/17 10:30 Bactroban Ointment (For Decolonization) - NS 10/27/17 21:59 Not Given BID [facility] Non-Formulary Medication 120 mg 11/21/17 13:15 Denosumab SQ Q30D [facility] Oseltamivir Phosphate 75 mg 10/25/17 22:00 10/26/17 10:07 Tamiflu - PO 10/28/17 09:59 75 mg BID [facility] Administration Pantoprazole Sodium 40 mg 10/26/17 10:00 10/26/17 10:08 Protonix - PO 40 mg DAILY [facility] Administration Polyethylene Glycol 17 gm 10/26/17 10:00 10/26/17 10:08 Miralax (For Daily Use) - PO 17 gm DAILY [facility] Administration Potassium Phos/Sodium Phos 1 packet 10/26/17 14:00 Phos-Nak Packet - PO 10/27/17 06:01 TID MANNY Pregabalin 150 mg 10/25/17 22:00 10/26/17 05:47 Lyrica - PO 150 mg TID [facility] Administration Saliva Substitute 1 applic 10/26/17 10:00 10/26/17 10:08 Mouthkote Solution - MM 1 applic DAILY [facility] Administration Venlafaxine HCl 75 mg 10/26/17 10:00 10/26/17 10:24 Effexor Xr - PO 75 mg DAILY [facility] Administration Objective: Vital Signs Period Temp Pulse Resp BP Sys/Kim Pulse Ox Last 24 Hr 98.5 F-99.6 F 71-90 18-25 104-122/51-56 99 Physical Exam: General: NAD, A&Ox2 (person, time, knows he is in a hospital) Heart: RRR, S1S2 Lungs: B/l rhonchi, +cough Abd: Soft, non-tender, non-distended. Normoactive bowel sounds Ext: Warm, well-perfused. No edema CBCD WBC 6.1 K/mm3 (4.0-10.0) 10/26/17 05:30 RBC 2.55 M/mm3 (4.00-5.60) L 10/26/17 05:30 Hgb 8.2 GM/dL (11.7-16.9) L 10/26/17 05:30 Hct 24.8 % (35.4-49) L 10/26/17 05:30 MCV 97.1 fl (80-96) H 10/26/17 05:30 MCHC 33.0 g/dl (32.0-35.9) 10/26/17 05:30 RDW 15.3 % (11.9-15.9) 10/26/17 05:30 Plt Count 240 K/MM3 (134-434) 10/26/17 05:30 MPV 8.3 fl (7.5-11.1) 10/26/17 05:30 CMP Sodium 142 mmol/L (136-145) 10/26/17 05:30 Potassium 4.7 mmol/L (3.5-5.1) 10/26/17 05:30 Chloride 111 mmol/L (98-107) H 10/26/17 05:30 Carbon Dioxide 23 mmol/L (21-32) 10/26/17 05:30 Anion Gap 8 (8-16) 10/26/17 05:30 BUN 18 mg/dL (7-18) 10/26/17 05:30 Creatinine 1.0 mg/dL (0.7-1.3) 10/26/17 05:30 Creat Clearance w eGFR > 60 (>60) 10/26/17 05:30 Random Glucose 124 mg/dL (74-106) H 10/26/17 05:30 Calcium 6.7 mg/dL (8.5-10.1) L* 10/26/17 05:30 Total Bilirubin 0.3 mg/dL (0.2-1.0) D 10/26/17 05:30 AST 35 U/L (15-37) D 10/26/17 05:30 ALT 20 U/L (12-78) D 10/26/17 05:30 Alkaline Phosphatase 247 U/L (45-117) H D 10/26/17 05:30 Total Protein 5.4 g/dl (6.4-8.2) L 10/26/17 05:30 Albumin 1.7 g/dl (3.4-5.0) L 10/26/17 05:30 CARDIAC ENZYMES Creatine Kinase 16 IU/L (39-308) L 10/23/17 05:10 Troponin I < 0.02 ng/ml (0.00-0.05) D 10/23/17 05:10 Microbiology 10/24/17 19:00 Urine - Urine - Catheterized Urine Culture - Final NO GROWTH OBTAINED 10/22/17 08:44 Blood - Peripheral Venous Blood Culture - Preliminary NO GROWTH OBTAINED AFTER 96 HOURS, INCUBATION TO CONTINUE FOR 1 DAYS. 10/22/17 08:44 Blood - Peripheral Venous Blood Culture - Final Staphylococcus Epidermidis 10/24/17 19:00 Urine For Antigen Detection Legionella Antigen - Final 10/24/17 19:00 Urine For Antigen Detection Streptococcus pneumoniae Antigen (M - Final 10/24/17 06:15 Urine For Antigen Detection Legionella Antigen - Final 10/24/17 06:15 Urine For Antigen Detection Streptococcus pneumoniae Antigen (M - Final 10/22/17 10:08 Urine - Urine Clean Catch Urine Culture - Final Contaminated: Please Repeat 10/22/17 09:10 Nasopharyngeal Swab Influenza Types A,B Antigen (TONNY) - Final 10/22/17 09:10 Nasopharyngeal Swab - Final Assessment: This is an 87 year old male with PMHx of NIDDM, metastatic prostate cancer on Xgeva, PE s/p IVC filter (on Lovenox), SBO, who presented to the ED with ongoing cough since 10/10/17 Plan: 1) Severe sepsis 2/2 viral syndrome vs. bacterial pneumonia - Off dopamine - Clinically appears to be influenza despite negative swab - Continue Tamiflu - Continue empiric Ceftriaxone - Urine legionella ag negative - WBC wnl - Afebrile - Appreciate ID consult 2) NIDDM - BGM ACHS - ISS ACHS 3) Metastatic prostate cancer - Continue Xgeva 4) Hx of PE - Continue Lovenox 80mg sq bid - Has IVC filter 5) F/E/N: - Regular diet - Monitor electrolytes - Hypophosphatemia: replete 6) Prophylaxis: - Lovenox 80mg sq bid - PT evaluation 7) Dispo: - Requires continued inpatient care CODE STATUS: FULL CODE Visit type - Emergency Visit Emergency Visit: Yes ED Registration Date: 10/22/17 Care time: The patient presented to the Emergency Department on the above date and was hospitalized for further evaluation of their emergent condition. - New Patient This patient is new to me today: No - Critical Care Critical Care patient: No
[2017-10-26] MEDS: NAPH,MB-DB/K PH,MBDB POWDER PACKET PO SCH ×2 (14:05→22:58)
--- NOTE | 2017-10-26 18:17 | PN ---
Progress Note, Physician History of Present Illness: Occasional cough productive of thin sputum, dyspnea resolved, remains hemodynamically stable off dopamine gtt. - Current Medication List Current Medications: Active Medications Ascorbic Acid (Vitamin C -) 500 mg PO DAILY [facility] Last Admin: 10/26/17 10:07 Dose: 500 mg Calcium Carbonate (Os-Jamar 500mg -) 500 mg PO DAILY [facility] Last Admin: 10/26/17 10:24 Dose: 500 mg Chlorhexidine Gluconate (Hibiclens For Decolonization -) 1 applic TP HS [facility] Last Admin: 10/25/17 21:52 Dose: Not Given Docusate Sodium (Colace -) 300 mg PO HS [facility] Last Admin: 10/25/17 21:49 Dose: 300 mg Enoxaparin Sodium (Lovenox -) 80 mg SQ BID [facility] Last Admin: 10/26/17 10:09 Dose: 80 mg Guaifenesin (Robitussin -) 10 ml PO Q6HPO [facility] Last Admin: 10/26/17 18:00 Dose: 10 ml CEFTRIAXONE 1 G/50 ML PREMIX (Ceftriaxone 1 Gm-D5w Bag) 50 mls @ 100 mls/hr IVPB DAILY [facility] Last Admin: 10/26/17 10:09 Dose: 100 mls/hr Insulin Aspart (Novolog Vial Sliding Scale -) 1 vial SQ HS [facility] PRN Reason: Protocol Last Admin: 10/25/17 21:51 Dose: Not Given Insulin Aspart (Novolog Vial Sliding Scale -) 1 vial SQ TIDAC [facility] PRN Reason: Protocol Last Admin: 10/26/17 18:00 Dose: 2 unit Morphine Sulfate (Ms Contin -) 60 mg PO BID [facility] Last Admin: 10/26/17 10:07 Dose: 60 mg Mupirocin (Bactroban Ointment (For Decolonization) -) 1 applic NS BID [facility] Stop: 10/27/17 21:59 Last Admin: 10/26/17 10:30 Dose: Not Given Non-Formulary Medication (Denosumab) 120 mg SQ Q30D [facility] Oseltamivir Phosphate (Tamiflu -) 75 mg PO BID [facility] Stop: 10/28/17 09:59 Last Admin: 10/26/17 10:07 Dose: 75 mg Pantoprazole Sodium (Protonix -) 40 mg PO DAILY [facility] Last Admin: 10/26/17 10:08 Dose: 40 mg Polyethylene Glycol (Miralax (For Daily Use) -) 17 gm PO DAILY [facility] Last Admin: 10/26/17 10:08 Dose: 17 gm Potassium Phos/Sodium Phos (Phos-Nak Packet -) 1 packet PO TID [facility] Stop: 10/27/17 06:01 Last Admin: 10/26/17 14:05 Dose: 1 packet Pregabalin (Lyrica -) 150 mg PO TID [facility] Last Admin: 10/26/17 14:05 Dose: 150 mg Saliva Substitute (Mouthkote Solution -) 1 applic MM DAILY [facility] Last Admin: 10/26/17 10:08 Dose: 1 applic Venlafaxine HCl (Effexor Xr -) 75 mg PO DAILY [facility] Last Admin: 10/26/17 10:24 Dose: 75 mg - Objective Vital Signs: Vital Signs Temperature 98.6 F 10/26/17 14:00 Pulse Rate 77 10/26/17 14:00 Respiratory Rate 18 10/26/17 14:00 Blood Pressure 121/59 10/26/17 14:00 O2 Sat by Pulse Oximetry (%) 99 10/26/17 10:00 Constitutional: Yes: No Distress, Calm Neck: Yes: Supple Cardiovascular: Yes: Regular Rate and Rhythm Respiratory: Yes: Regular, Diminished, On Nasal O2 Gastrointestinal: Yes: Normal Bowel Sounds, Soft Edema: No Labs: CBC, BMP 10/26/17 05:30 10/26/17 05:30 INR, PTT INR 1.24 (0.82-1.09) H 10/22/17 08:44 - ....Imaging Chest X-ray: Report Reviewed (Left base ATX/infiltrate) EKG: Report Reviewed (Tele: [facility]) Problem List - Problems (1) [id number] kidney injury Code(s): N17.9 - ACUTE KIDNEY FAILURE, UNSPECIFIED; N18.9 - CHRONIC KIDNEY DISEASE, UNSPECIFIED Qualifiers: Chronic kidney disease stage: stage 2 (mild) (2) Hypotension Code(s): I95.9 - HYPOTENSION, UNSPECIFIED Qualifiers: Hypotension type: other hypotension type Qualified Code(s): I95.89 - Other hypotension (3) Pulmonary embolism Code(s): I26.99 - OTHER PULMONARY EMBOLISM WITHOUT ACUTE COR PULMONALE Qualifiers: Chronicity: chronic Acute cor pulmonale presence: without acute cor pulmonale (4) DVT (deep venous thrombosis) Code(s): I82.409 - ACUTE EMBOLISM AND THOMBOS UNSP DEEP VN UNSP LOWER EXTREMITY Qualifiers: DVT location: lower extremity Affected thrombotic vein of extremity: popliteal Chronicity: acute Laterality: left Qualified Code(s): I82.432 - Acute embolism and thrombosis of left popliteal vein (5) Prostate cancer metastatic to bone Code(s): C61 - MALIGNANT NEOPLASM OF PROSTATE; C79.51 - SECONDARY MALIGNANT NEOPLASM OF BONE (6) Weakness Code(s): R53.1 - WEAKNESS (7) Chronic anticoagulation Code(s): 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 Acute Hypoxic Respiratory Failure, r/o PNA, Influenza, post septic shock 2. 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 DVT - left popliteal vein post IVC filter insertion 6. History of metastatic prostate carcinoma on monoclonal ab 7. Acute on CKD improved 8. Anemia 9. Type 2 DM PLAN: 1. Observe hemodynamics off dopamine gtt 2. Tamiflu and abx course per ID, f/u C&S 3. Continue long-term Lovenox 80 bid considering his met prostate ca history 4. Monitor CBC closely and transfuse as needed to maintain Hg equal or > 8.0 5. BD, O2 to keep SpO2 >90%, GI protection
[2017-10-26] MEDS: DOCUSATE SODIUM 100 MG CAPSULE (FP) PO SCH (22:56)
[2017-10-26] MEDS: CHLORHEXIDINE GLUCONATE 4% CLEANSER FOR DECOLONIZATION TP SCH (22:56)
[2017-10-27 06:03] LABS: HEMATOCRIT 24.3 % (35.4-49); MCH 31.6 pg (25.7-33.7); MCHC 32.8 g/dl (32.0-35.9); MEAN CELL VOLUME 96.3 fl (80-96); PLATELET COUNT 245 K/MM3 (134-434); RBC 2.52 M/mm3 (4.00-5.60); RDW 15.6 % (11.9-15.9); WHITE BLOOD COUNT 5.6 K/mm3 (4.0-10.0)
[2017-10-27 06:31] LABS: ALBUMIN 1.6 g/dl (3.4-5.0); ALK PHOS 283 U/L (45-117); ANION GAP 8 (8-16); BILIRUBIN,TOTAL 0.3 mg/dL (0.2-1.0); BLOOD UREA NITROGEN 17 mg/dL (7-18); CHLORIDE 110 mmol/L (98-107); CO2 25 mmol/L (21-32); CREATININE 0.9 mg/dL (0.7-1.3); GLUCOSE,RANDOM 127 mg/dL (74-106); MAGNESIUM 1.7 mg/dL (1.8-2.4); PHOSPHOROUS 2.1 mg/dL (2.5-4.9); POTASSIUM 4.6 mmol/L (3.5-5.1); SGOT/AST 37 U/L (15-37); SGPT/ALT 21 U/L (12-78); SODIUM 143 mmol/L (136-145); TOT PROT 5.3 g/dl (6.4-8.2)
[2017-10-27 06:40] LABS: CALCIUM 6.7 mg/dL (8.5-10.1)
[2017-10-27] MEDS ORDERED: PT OWN MED DRAWER 7, Y5N ONE ×3 (09:31→22:22)
[2017-10-27] MEDS: guaiFENesin 200 MG/10 ML 10 ML UNIT-DOSE CUPS PO SCH ×4 (09:34→18:28)
[2017-10-27] MEDS: morphine SO4 SUSTAINED ACTING 30 MG TABLET.SA PO SCH ×2 (09:35→22:13)
[2017-10-27] MEDS: INSULIN SLIDING SCALE (NOVOLOG) 1 VIAL SQ SCH ×4 (09:36→23:48)
[2017-10-27] MEDS: PREGABALIN 50 MG CAPSULE PO SCH ×3 (09:36→22:14)
[2017-10-27] MEDS: NAPH,MB-DB/K PH,MBDB POWDER PACKET PO SCH ×3 (09:36→23:49)
[2017-10-27] MEDS: VENLAFAXINE HCL 75 MG E.R. CAPSULES (FP) PO SCH (09:37)
[2017-10-27] MEDS: MUPIROCIN 2% TOPICAL OINTMENT FOR DECOLONIZATION NS SCH (09:37)
[2017-10-27] MEDS: CALCIUM (OYSTER SHELL) 500 MG TABLET (FP) PO SCH (09:37)
[2017-10-27] MEDS: CEFTRIAXONE 1 G/50 ML PREMIX 50 ML IVPB SCH (09:37)
[2017-10-27] MEDS: OSELTAMIVIR PHOSPHATE 75 MG CAPSULE PO SCH ×2 (09:37→23:49)
[2017-10-27] MEDS: ENOXAPARIN NA (PORCINE) 80 MG/0.8 ML DISP.SYRIN SQ SCH ×2 (09:38→22:24)
[2017-10-27] MEDS: LYTES/YERBA SANTA 240 ML BOTTLE MM SCH (09:38)
[2017-10-27] MEDS: POLYETHYLENE GLYCOL 3350 119 GM BTL PO SCH (09:38)
[2017-10-27] MEDS: PANTOPRAZOLE 40 MG TABLET (FP) PO SCH (09:39)
[2017-10-27] MEDS: ASCORBIC ACID 500 MG TABLET (FP) PO SCH (09:39)
[2017-10-27] MEDS ORDERED: MAGNESIUM SULF 50% (8.12 MEQ/2 ML-1 GM VIAL) IVPB ONE (10:15)
--- NOTE | 2017-10-27 10:15 | PN ---
Progress Note (short form) - Note Progress Note: Patient seen and examined in the Cardiac Telemetry unit. Breathing feels about the same. Still with some congested cough. Less back pain today. Isolation for Flu. Intake & Output 10/24/17 10/25/17 10/26/17 10/27/17 23:59 23:59 23:59 23:59 Intake Total 2712 900 665 100 Output Total 2100 100 Balance 612 800 665 100 Weight 176 lb 5 oz 178 lb 1 oz 179 lb 6.4 oz 181 lb 14.102 oz Last Vital Signs Temp Pulse Resp BP Pulse Ox 98.6 F 73 22 106/45 100 10/26/17 14:00 10/27/17 07:06 10/27/17 09:00 10/27/17 07:06 10/27/17 09:00 Active Medications Ascorbic Acid (Vitamin C -) 500 mg PO DAILY [facility] Last Admin: 10/27/17 09:39 Dose: 500 mg Calcium Carbonate (Os-Jamar 500mg -) 500 mg PO DAILY [facility] Last Admin: 10/27/17 09:37 Dose: 500 mg Chlorhexidine Gluconate (Hibiclens For Decolonization -) 1 applic TP [facility] Last Admin: 10/26/17 22:56 Dose: Not Given Docusate Sodium (Colace -) 300 mg PO [facility] Last Admin: 10/26/17 22:56 Dose: 300 mg Enoxaparin Sodium (Lovenox -) 80 mg SQ BID [facility] Last Admin: 10/27/17 09:38 Dose: 80 mg Guaifenesin (Robitussin -) 10 ml PO Q6HPO [facility] Last Admin: 10/27/17 09:36 Dose: 10 ml CEFTRIAXONE 1 G/50 ML PREMIX (Ceftriaxone 1 Gm-D5w Bag) 50 mls @ 100 mls/hr IVPB DAILY [facility] Last Admin: 10/27/17 09:37 Dose: 100 mls/hr Insulin Aspart (Novolog Vial Sliding Scale -) 1 vial SQ HS [facility] PRN Reason: Protocol Last Admin: 10/26/17 22:57 Dose: 2 units Insulin Aspart (Novolog Vial Sliding Scale -) 1 vial SQ TIDAC [facility] PRN Reason: Protocol Last Admin: 10/27/17 09:36 Dose: Not Given Morphine Sulfate (Ms Contin -) 60 mg PO BID [facility] Last Admin: 10/27/17 09:35 Dose: 60 mg Mupirocin (Bactroban Ointment (For Decolonization) -) 1 applic NS BID [facility] Stop: 10/27/17 21:59 Last Admin: 10/27/17 09:37 Dose: Not Given Non-Formulary Medication (Denosumab) 120 mg SQ Q30D [facility] Oseltamivir Phosphate (Tamiflu -) 75 mg PO BID [facility] Stop: 10/28/17 09:59 Last Admin: 10/27/17 09:37 Dose: 75 mg Pantoprazole Sodium (Protonix -) 40 mg PO DAILY [facility] Last Admin: 10/27/17 09:39 Dose: 40 mg Polyethylene Glycol (Miralax (For Daily Use) -) 17 gm PO DAILY [facility] Last Admin: 10/27/17 09:38 Dose: 17 gm Pregabalin (Lyrica -) 150 mg PO TID [facility] Last Admin: 10/27/17 09:36 Dose: 150 mg Saliva Substitute (Mouthkote Solution -) 1 applic MM DAILY [facility] Last Admin: 10/27/17 09:38 Dose: 1 applic Venlafaxine HCl (Effexor Xr -) 75 mg PO DAILY [facility] Last Admin: 10/27/17 09:37 Dose: 75 mg OBJECTIVE: Intake & Output 10/24/17 10/25/17 10/26/17 10/27/17 23:59 23:59 23:59 23:59 Intake Total 2712 900 665 100 Output Total 2100 100 Balance 612 800 665 100 Weight 176 lb 5 oz 178 lb 1 oz 179 lb 6.4 oz 181 lb 14.102 oz Last Vital Signs Temp Pulse Resp BP Pulse Ox 98.6 F 73 22 106/45 100 10/26/17 14:00 10/27/17 07:06 10/27/17 09:00 10/27/17 07:06 10/27/17 09:00 Active Medications Ascorbic Acid (Vitamin C -) 500 mg PO DAILY [facility] Last Admin: 10/27/17 09:39 Dose: 500 mg Calcium Carbonate (Os-Jamar 500mg -) 500 mg PO DAILY [facility] Last Admin: 10/27/17 09:37 Dose: 500 mg Chlorhexidine Gluconate (Hibiclens For Decolonization -) 1 applic TP HS [facility] Last Admin: 10/26/17 22:56 Dose: Not Given Docusate Sodium (Colace -) 300 mg PO HS [facility] Last Admin: 10/26/17 22:56 Dose: 300 mg Enoxaparin Sodium (Lovenox -) 80 mg SQ BID [facility] Last Admin: 10/27/17 09:38 Dose: 80 mg Guaifenesin (Robitussin -) 10 ml PO Q6HPO [facility] Last Admin: 10/27/17 09:36 Dose: 10 ml CEFTRIAXONE 1 G/50 ML PREMIX (Ceftriaxone 1 Gm-D5w Bag) 50 mls @ 100 mls/hr IVPB DAILY [facility] Last Admin: 10/27/17 09:37 Dose: 100 mls/hr Insulin Aspart (Novolog Vial Sliding Scale -) 1 vial SQ HS [facility] PRN Reason: Protocol Last Admin: 10/26/17 22:57 Dose: 2 units Insulin Aspart (Novolog Vial Sliding Scale -) 1 vial SQ TIDAC [facility] PRN Reason: Protocol Last Admin: 10/27/17 09:36 Dose: Not Given Morphine Sulfate (Ms Contin -) 60 mg PO BID [facility] Last Admin: 10/27/17 09:35 Dose: 60 mg Mupirocin (Bactroban Ointment (For Decolonization) -) 1 applic NS BID [facility] Stop: 10/27/17 21:59 Last Admin: 10/27/17 09:37 Dose: Not Given Non-Formulary Medication (Denosumab) 120 mg SQ Q30D [facility] Oseltamivir Phosphate (Tamiflu -) 75 mg PO BID [facility] Stop: 10/28/17 09:59 Last Admin: 10/27/17 09:37 Dose: 75 mg Pantoprazole Sodium (Protonix -) 40 mg PO DAILY [facility] Last Admin: 10/27/17 09:39 Dose: 40 mg Polyethylene Glycol (Miralax (For Daily Use) -) 17 gm PO DAILY [facility] Last Admin: 10/27/17 09:38 Dose: 17 gm Pregabalin (Lyrica -) 150 mg PO TID [facility] Last Admin: 10/27/17 09:36 Dose: 150 mg Saliva Substitute (Mouthkote Solution -) 1 applic MM DAILY [facility] Last Admin: 10/27/17 09:38 Dose: 1 applic Venlafaxine HCl (Effexor Xr -) 75 mg PO DAILY [facility] Last Admin: 10/27/17 09:37 Dose: 75 mg Gen: Awake and alert, mildly tachypneic at rest Heart: RRR Lung: bibasilar rhonchi, rales Abd: soft, nontender Ext: dependent edema Laboratory Results - last 24 hr 10/26/17 10/26/17 10/27/17 12:15 17:49 05:10 WBC 5.6 RBC 2.52 L Hgb 8.0 L Hct 24.3 L MCV 96.3 H MCH 31.6 MCHC 32.8 RDW 15.6 Plt Count 245 MPV 8.0 Sodium Potassium Chloride Carbon Dioxide Anion Gap BUN Creatinine Creat Clearance w eGFR POC Glucometer 200 170 Random Glucose Calcium Phosphorus Magnesium Total Bilirubin AST ALT Alkaline Phosphatase Total Protein Albumin 10/27/17 05:10 WBC RBC Hgb Hct MCV MCH MCHC RDW Plt Count MPV Sodium 143 Potassium 4.6 Chloride 110 H Carbon Dioxide 25 Anion Gap 8 BUN 17 Creatinine 0.9 Creat Clearance w eGFR > 60 POC Glucometer Random Glucose 127 H Calcium 6.7 L* Phosphorus 2.1 L D Magnesium 1.7 L Total Bilirubin 0.3 AST 37 ALT 21 Alkaline Phosphatase 283 H Total Protein 5.3 L Albumin 1.6 L ASSESSMENT AND PLAN: Acute Hypoxic Respiratory Failure r/o Pneumonia r/o Influenza Severe Sepsis h/o PE Metastatic Prostate Ca DM - ABX per ID - Tamiflu - O2 to keep SpO2 >90% - Replete lytes - monitor urine output, creatinine - AC - PO as tolerated - Cardiac Telemetry monitoring Dr Merchant
[2017-10-27] MEDS ORDERED: MAGNESIUM SULFATE IN WATER 2 GM/50 ML IVPB IVPB ONE (11:00)
--- NOTE | 2017-10-27 13:13 | PN ---
Progress Note, Physician History of Present Illness: Occasional cough productive of thin sputum, dyspnea resolved. - Current Medication List Current Medications: Active Medications Ascorbic Acid (Vitamin C -) 500 mg PO DAILY [facility] Last Admin: 10/27/17 09:39 Dose: 500 mg Calcium Carbonate (Os-Jamar 500mg -) 500 mg PO DAILY [facility] Last Admin: 10/27/17 09:37 Dose: 500 mg Chlorhexidine Gluconate (Hibiclens For Decolonization -) 1 applic TP HS [facility] Last Admin: 10/26/17 22:56 Dose: Not Given Docusate Sodium (Colace -) 300 mg PO [facility] Last Admin: 10/26/17 22:56 Dose: 300 mg Enoxaparin Sodium (Lovenox -) 80 mg SQ BID [facility] Last Admin: 10/27/17 09:38 Dose: 80 mg Guaifenesin (Robitussin -) 10 ml PO Q6HPO [facility] Last Admin: 10/27/17 12:00 Dose: 10 ml CEFTRIAXONE 1 G/50 ML PREMIX (Ceftriaxone 1 Gm-D5w Bag) 50 mls @ 100 mls/hr IVPB DAILY [facility] Last Admin: 10/27/17 09:37 Dose: 100 mls/hr Insulin Aspart (Novolog Vial Sliding Scale -) 1 vial SQ HS [facility] PRN Reason: Protocol Last Admin: 10/26/17 22:57 Dose: 2 units Insulin Aspart (Novolog Vial Sliding Scale -) 1 vial SQ TIDAC [facility] PRN Reason: Protocol Last Admin: 10/27/17 11:00 Dose: Not Given Morphine Sulfate (Ms Contin -) 60 mg PO BID [facility] Last Admin: 10/27/17 09:35 Dose: 60 mg Mupirocin (Bactroban Ointment (For Decolonization) -) 1 applic NS BID [facility] Stop: 10/27/17 21:59 Last Admin: 10/27/17 09:37 Dose: Not Given Non-Formulary Medication (Denosumab) 120 mg SQ Q30D [facility] Oseltamivir Phosphate (Tamiflu -) 75 mg PO BID [facility] Stop: 10/28/17 09:59 Last Admin: 10/27/17 09:37 Dose: 75 mg Pantoprazole Sodium (Protonix -) 40 mg PO DAILY [facility] Last Admin: 10/27/17 09:39 Dose: 40 mg Polyethylene Glycol (Miralax (For Daily Use) -) 17 gm PO DAILY [facility] Last Admin: 10/27/17 09:38 Dose: 17 gm Potassium Phos/Sodium Phos (Phos-Nak Packet -) 1 packet PO TID [facility] Stop: 10/28/17 06:01 Pregabalin (Lyrica -) 150 mg PO TID [facility] Last Admin: 10/27/17 09:36 Dose: 150 mg Saliva Substitute (Mouthkote Solution -) 1 applic MM DAILY [facility] Last Admin: 10/27/17 09:38 Dose: 1 applic Venlafaxine HCl (Effexor Xr -) 75 mg PO DAILY [facility] Last Admin: 10/27/17 09:37 Dose: 75 mg - Objective Vital Signs: Vital Signs Temperature 98.3 F 10/27/17 12:00 Pulse Rate 74 10/27/17 12:00 Respiratory Rate 22 10/27/17 12:00 Blood Pressure 118/74 10/27/17 12:00 O2 Sat by Pulse Oximetry (%) 100 10/27/17 09:00 Constitutional: Yes: No Distress, Calm Neck: Yes: Supple Cardiovascular: Yes: Regular Rate and Rhythm Respiratory: Yes: Regular, Diminished, On Nasal O2 Gastrointestinal: Yes: Normal Bowel Sounds, Soft Edema: No Labs: CBC, BMP 10/27/17 05:10 10/27/17 05:10 INR, PTT INR 1.24 (0.82-1.09) H 10/22/17 08:44 - ....Imaging EKG: Report Reviewed (Tele: [facility]) Problem List - Problems (1) [id number]-[id number] kidney injury Code(s): N17.9 - ACUTE KIDNEY FAILURE, UNSPECIFIED; N18.9 - CHRONIC KIDNEY DISEASE, UNSPECIFIED Qualifiers: Chronic kidney disease stage: stage 2 (mild) (2) Hypotension Code(s): I95.9 - HYPOTENSION, UNSPECIFIED Qualifiers: Hypotension type: other hypotension type Qualified Code(s): I95.89 - Other hypotension (3) Pulmonary embolism Code(s): I26.99 - OTHER PULMONARY EMBOLISM WITHOUT ACUTE COR PULMONALE Qualifiers: Chronicity: chronic Acute cor pulmonale presence: without acute cor pulmonale (4) DVT (deep venous thrombosis) Code(s): I82.409 - ACUTE EMBOLISM AND THOMBOS UNSP DEEP VN UNSP LOWER EXTREMITY Qualifiers: DVT location: lower extremity Affected thrombotic vein of extremity: popliteal Chronicity: acute Laterality: left Qualified Code(s): I82.432 - Acute embolism and thrombosis of left popliteal vein (5) Prostate cancer metastatic to bone Code(s): C61 - MALIGNANT NEOPLASM OF PROSTATE; C79.51 - SECONDARY MALIGNANT NEOPLASM OF BONE (6) Weakness Code(s): R53.1 - WEAKNESS (7) Chronic anticoagulation 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 Acute Hypoxic Respiratory Failure, r/o PNA, Influenza, post septic shock 2. 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 DVT - left popliteal vein post IVC filter insertion 6. History of metastatic prostate carcinoma on monoclonal ab 7. Acute on CKD improved 8. Anemia 9. Type 2 DM PLAN: 1. Tamiflu and abx course per ID, f/u C&S 2. Continue long-term Lovenox 80 bid considering his met prostate ca history 3. Monitor CBC closely and transfuse as needed to maintain Hg equal or > 8.0 4. BD, O2 to keep SpO2 >90%, GI protection
--- NOTE | 2017-10-27 17:59 | PN ---
Progress Note (short form) - Note Progress Note: Subjective: The patient was seen and examined at the bedside, he reports feeling good today. Still with cough Current Medications Generic Name Dose Route Start Last Admin Trade Name Sujey PRN Reason Stop Dose Admin Ascorbic Acid 500 mg 10/26/17 10:00 10/27/17 09:39 Vitamin C - PO 500 mg DAILY [facility] Administration Calcium Carbonate 500 mg 10/26/17 10:00 10/27/17 09:37 Os-Jamar 500mg - PO 500 mg DAILY [facility] Administration Chlorhexidine Gluconate 1 applic 10/25/17 22:00 10/26/17 22:56 Hibiclens For Decolonization - TP Not Given HS [facility] Docusate Sodium 300 mg 10/25/17 22:00 10/26/17 22:56 Colace - PO 300 mg HS [facility] Administration Enoxaparin Sodium 80 mg 10/25/17 22:00 10/27/17 09:38 Lovenox - SQ 80 mg BID [facility] Administration Guaifenesin 10 ml 10/26/17 00:00 10/27/17 12:00 Robitussin - PO 10 ml Q6HPO [facility] Administration CEFTRIAXONE 1 G/50 ML PREMIX 50 mls @ 100 mls/hr 10/26/17 10:00 10/27/17 09: 37 Ceftriaxone 1 Gm-D5w Bag IVPB 100 mls/hr DAILY [facility] Administration Insulin Aspart 1 vial 10/25/17 22:00 10/26/17 22:57 Novolog Vial Sliding Scale - SQ 2 units HS [facility] Administration Protocol Insulin Aspart 1 vial 10/26/17 07:00 10/27/17 11:00 Novolog Vial Sliding Scale - SQ Not Given TIDAC [facility] Protocol Morphine Sulfate 60 mg 10/25/17 22:00 10/27/17 09:35 Ms Contin - PO 60 mg BID [facility] Administration Mupirocin 1 applic 10/25/17 22:00 10/27/17 09:37 Bactroban Ointment (For Decolonization) - NS 10/27/17 21:59 Not Given BID [facility] Non-Formulary Medication 120 mg 11/21/17 13:15 Denosumab SQ Q30D [facility] Oseltamivir Phosphate 75 mg 10/25/17 22:00 10/27/17 09:37 Tamiflu - PO 10/28/17 09:59 75 mg BID [facility] Administration Pantoprazole Sodium 40 mg 10/26/17 10:00 10/27/17 09:39 Protonix - PO 40 mg DAILY [facility] Administration Polyethylene Glycol 17 gm 10/26/17 10:00 10/27/17 09:38 Miralax (For Daily Use) - PO 17 gm DAILY [facility] Administration Potassium Phos/Sodium Phos 1 packet 10/27/17 14:00 10/27/17 15:00 Phos-Nak Packet - PO 10/28/17 06:01 1 packet TID [facility] Administration Pregabalin 150 mg 10/25/17 22:00 10/27/17 14:00 Lyrica - PO 150 mg TID [facility] Administration Saliva Substitute 1 applic 10/26/17 10:00 10/27/17 09:38 Mouthkote Solution - MM 1 applic DAILY [facility] Administration Venlafaxine HCl 75 mg 10/26/17 10:00 10/27/17 09:37 Effexor Xr - PO 75 mg DAILY [facility] Administration Objective: Vital Signs Period Temp Pulse Resp BP Sys/Kim Pulse Ox Last 24 Hr 98.3 F-99.0 F 73-80 20-22 104-118/45-74 100-100 Physical Exam: General: NAD, A&Ox2 (person, time, knows he is in a hospital) Heart: RRR, S1S2 Lungs: B/l rhonchi, +cough Abd: Soft, non-tender, non-distended. Normoactive bowel sounds Ext: Warm, well-perfused. No edema CBCD WBC 5.6 K/mm3 (4.0-10.0) 10/27/17 05:10 RBC 2.52 M/mm3 (4.00-5.60) L 10/27/17 05:10 Hgb 8.0 GM/dL (11.7-16.9) L 10/27/17 05:10 Hct 24.3 % (35.4-49) L 10/27/17 05:10 MCV 96.3 fl (80-96) H 10/27/17 05:10 MCHC 32.8 g/dl (32.0-35.9) 10/27/17 05:10 RDW 15.6 % (11.9-15.9) 10/27/17 05:10 Plt Count 245 K/MM3 (134-434) 10/27/17 05:10 MPV 8.0 fl (7.5-11.1) 10/27/17 05:10 CMP Sodium 143 mmol/L (136-145) 10/27/17 05:10 Potassium 4.6 mmol/L (3.5-5.1) 10/27/17 05:10 Chloride 110 mmol/L (98-107) H 10/27/17 05:10 Carbon Dioxide 25 mmol/L (21-32) 10/27/17 05:10 Anion Gap 8 (8-16) 10/27/17 05:10 BUN 17 mg/dL (7-18) 10/27/17 05:10 Creatinine 0.9 mg/dL (0.7-1.3) 10/27/17 05:10 Creat Clearance w eGFR > 60 (>60) 10/27/17 05:10 Random Glucose 127 mg/dL (74-106) H 10/27/17 05:10 Calcium 6.7 mg/dL (8.5-10.1) L* 10/27/17 05:10 Total Bilirubin 0.3 mg/dL (0.2-1.0) 10/27/17 05:10 AST 37 U/L (15-37) 10/27/17 05:10 ALT 21 U/L (12-78) 10/27/17 05:10 Alkaline Phosphatase 283 U/L (45-117) H 10/27/17 05:10 Total Protein 5.3 g/dl (6.4-8.2) L 10/27/17 05:10 Albumin 1.6 g/dl (3.4-5.0) L 10/27/17 05:10 CARDIAC ENZYMES Creatine Kinase 16 IU/L (39-308) L 10/23/17 05:10 Troponin I < 0.02 ng/ml (0.00-0.05) D 10/23/17 05:10 Microbiology 10/22/17 08:44 Blood - Peripheral Venous Blood Culture - Final NO GROWTH AFTER 5 DAYS INCUBATION 10/24/17 19:00 Urine - Urine - Catheterized Urine Culture - Final NO GROWTH OBTAINED 10/22/17 08:44 Blood - Peripheral Venous Blood Culture - Final Staphylococcus Epidermidis 10/24/17 19:00 Urine For Antigen Detection Legionella Antigen - Final 10/24/17 19:00 Urine For Antigen Detection Streptococcus pneumoniae Antigen (M - Final 10/24/17 06:15 Urine For Antigen Detection Legionella Antigen - Final 10/24/17 06:15 Urine For Antigen Detection Streptococcus pneumoniae Antigen (M - Final 10/22/17 10:08 Urine - Urine Clean Catch Urine Culture - Final Contaminated: Please Repeat 10/22/17 09:10 Nasopharyngeal Swab Influenza Types A,B Antigen ([facility]NY) - Final 10/22/17 09:10 Nasopharyngeal Swab - Final Assessment: This is an 87 year old male with PMHx of NIDDM, metastatic prostate cancer on Xgeva, PE s/p IVC filter (on Lovenox), SBO, who presented to the ED with ongoing cough since 10/10/17 Plan: 1) Severe sepsis 2/2 viral syndrome vs. bacterial pneumonia - Off dopamine - Clinically appears to be influenza despite negative swab - Continue Tamiflu - Continue empiric Ceftriaxone - Urine legionella ag negative - WBC wnl - Afebrile - Appreciate ID consult 2) NIDDM - BGM ACHS - ISS ACHS 3) Metastatic prostate cancer - Continue Xgeva 4) Hx of PE - Continue Lovenox 80mg sq bid - Has IVC filter 5) F/E/N: - Regular diet - Monitor electrolytes - Hypophosphatemia: resolved - Hypomagnesemia: replete 6) Prophylaxis: - Lovenox 80mg sq bid - PT evaluation 7) Dispo: - Requires continued inpatient care CODE STATUS: FULL CODE Visit type - Emergency Visit Emergency Visit: Yes ED Registration Date: 10/22/17 Care time: The patient presented to the Emergency Department on the above date and was hospitalized for further evaluation of their emergent condition. - New Patient This patient is new to me today: No - Critical Care Critical Care patient: No
[2017-10-27] MEDS: DOCUSATE SODIUM 100 MG CAPSULE (FP) PO SCH (22:13)
[2017-10-27] MEDS: CHLORHEXIDINE GLUCONATE 4% CLEANSER FOR DECOLONIZATION TP SCH (22:25)
[2017-10-28] MEDS: INSULIN SLIDING SCALE (NOVOLOG) 1 VIAL SQ SCH ×3 (06:18→18:08)
[2017-10-28] MEDS: PREGABALIN 50 MG CAPSULE PO SCH ×3 (06:20→22:00)
[2017-10-28] MEDS: NAPH,MB-DB/K PH,MBDB POWDER PACKET PO SCH ×3 (06:20→21:38)
[2017-10-28] MEDS: guaiFENesin 200 MG/10 ML 10 ML UNIT-DOSE CUPS PO SCH ×3 (06:21→18:04)
[2017-10-28 06:32] LABS: BASO % 0.5 % (0-2.0); EOS % 1.8 % (0-4.5); HEMATOCRIT 25.5 % (35.4-49); HEMOGLOBIN 8.4 GM/dL (11.7-16.9); LYMPH % 8.9 % (8-40); MCH 31.6 pg (25.7-33.7); MCHC 32.9 g/dl (32.0-35.9); MEAN CELL VOLUME 96.2 fl (80-96); MONO % 13.4 % (3.8-10.2); NEUT % 75.4 % (42.8-82.8); PLATELET COUNT 250 K/MM3 (134-434); RBC 2.66 M/mm3 (4.00-5.60); RDW 15.5 % (11.9-15.9); WHITE BLOOD COUNT 6.8 K/mm3 (4.0-10.0)
[2017-10-28 06:57] LABS: ALBUMIN 1.6 g/dl (3.4-5.0); ANION GAP 7 (8-16); BLOOD UREA NITROGEN 14 mg/dL (7-18); CHLORIDE 108 mmol/L (98-107); CO2 25 mmol/L (21-32); GLUCOSE,RANDOM 150 mg/dL (74-106); MAGNESIUM 2.2 mg/dL (1.8-2.4); SGOT/AST 30 U/L (15-37); SODIUM 140 mmol/L (136-145)
[2017-10-28 07:01] LABS: ALK PHOS 306 U/L (45-117); BILIRUBIN,TOTAL 0.2 mg/dL (0.2-1.0); CREATININE 0.9 mg/dL (0.7-1.3); SGPT/ALT 20 U/L (12-78); TOT PROT 5.6 g/dl (6.4-8.2)
[2017-10-28 07:28] LABS: CALCIUM 6.6 mg/dL (8.5-10.1)
--- NOTE | 2017-10-28 08:22 | PN ---
Progress Note, Physician Chief Complaint: ID Appears comfortable wants to know when he can leave Ceftriaxone Oseltamvir - Current Medication List Current Medications: Active Medications Ascorbic Acid (Vitamin C -) 500 mg PO DAILY [facility] Last Admin: 10/27/17 09:39 Dose: 500 mg Calcium Carbonate (Os-Jamar 500mg -) 500 mg PO DAILY [facility] Last Admin: 10/27/17 09:37 Dose: 500 mg Chlorhexidine Gluconate (Hibiclens For Decolonization -) 1 applic TP HS [facility] Last Admin: 10/27/17 22:25 Dose: 1 applic Docusate Sodium (Colace -) 300 mg PO HS [facility] Last Admin: 10/27/17 22:13 Dose: 300 mg Enoxaparin Sodium (Lovenox -) 80 mg SQ BID [facility] Last Admin: 10/27/17 22:24 Dose: 80 mg Guaifenesin (Robitussin -) 10 ml PO Q6HPO [facility] Last Admin: 10/28/17 06:21 Dose: Not Given CEFTRIAXONE 1 G/50 ML PREMIX (Ceftriaxone 1 Gm-D5w Bag) 50 mls @ 100 mls/hr IVPB DAILY [facility] Last Admin: 10/27/17 09:37 Dose: 100 mls/hr Insulin Aspart (Novolog Vial Sliding Scale -) 1 vial SQ HS [facility] PRN Reason: Protocol Last Admin: 10/27/17 23:48 Dose: Not Given Insulin Aspart (Novolog Vial Sliding Scale -) 1 vial SQ TIDAC [facility] PRN Reason: Protocol Last Admin: 10/28/17 06:18 Dose: Not Given Morphine Sulfate (Ms Contin -) 60 mg PO BID [facility] Last Admin: 10/27/17 22:13 Dose: 60 mg Non-Formulary Medication (Denosumab) 120 mg SQ Q30D [facility] Oseltamivir Phosphate (Tamiflu -) 75 mg PO BID [facility] Stop: 10/28/17 09:59 Last Admin: 10/27/17 23:49 Dose: 75 mg Pantoprazole Sodium (Protonix -) 40 mg PO DAILY [facility] Last Admin: 10/27/17 09:39 Dose: 40 mg Polyethylene Glycol (Miralax (For Daily Use) -) 17 gm PO DAILY [facility] Last Admin: 10/27/17 09:38 Dose: 17 gm Pregabalin (Lyrica -) 150 mg PO TID [facility] Last Admin: 10/28/17 06:20 Dose: 150 mg Saliva Substitute (Mouthkote Solution -) 1 applic MM DAILY [facility] Last Admin: 10/27/17 09:38 Dose: 1 applic Venlafaxine HCl (Effexor Xr -) 75 mg PO DAILY [facility] Last Admin: 10/27/17 09:37 Dose: 75 mg - Objective Vital Signs: Vital Signs Temperature 98 F 10/28/17 08:00 Pulse Rate 74 10/28/17 08:00 Respiratory Rate 20 10/28/17 06:00 Blood Pressure 115/54 10/28/17 08:00 O2 Sat by Pulse Oximetry (%) 100 10/27/17 20:41 HENT: Yes: WNL, Atraumatic Neck: Yes: WNL, Supple Cardiovascular: Yes: Regular Rate and Rhythm, S1, S2 Respiratory: Yes: WNL, Regular, CTA Bilaterally Gastrointestinal: Yes: WNL, Normal Bowel Sounds, Soft. 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
[2017-10-28] MEDS: CEFTRIAXONE 1 G/50 ML PREMIX 50 ML IVPB SCH (09:07)
[2017-10-28] MEDS: morphine SO4 SUSTAINED ACTING 30 MG TABLET.SA PO SCH ×2 (09:08→21:34)
[2017-10-28] MEDS: ENOXAPARIN NA (PORCINE) 80 MG/0.8 ML DISP.SYRIN SQ SCH ×2 (09:09→21:37)
[2017-10-28] MEDS: PANTOPRAZOLE 40 MG TABLET (FP) PO SCH (09:09)
[2017-10-28] MEDS: ASCORBIC ACID 500 MG TABLET (FP) PO SCH (09:09)
[2017-10-28] MEDS: VENLAFAXINE HCL 75 MG E.R. CAPSULES (FP) PO SCH (09:22)
[2017-10-28] MEDS: CALCIUM (OYSTER SHELL) 500 MG TABLET (FP) PO SCH (09:23)
[2017-10-28] MEDS: POLYETHYLENE GLYCOL 3350 119 GM BTL PO SCH (09:23)
--- NOTE | 2017-10-28 09:54 | PN ---
Physical Exam: SUBJECTIVE: Patient seen and examined at the [facility]. OBJECTIVE: As per ID, pt's last dose of ceftriaxone is tomorrow d/c oxygen, pre and post ordered albuterol x 1 now then prn finished tamiflu d/c [place] catheter monitor intake and output PT to eval Incentive spirometer Period Temp Pulse Resp BP Sys/Kim Pulse Ox Last 24 Hr 98 F-99.0 F 74-83 20-22 104-123/49-74 100 GENERAL: The patient is awake, alert, and fully oriented, in no acute distress. HEAD: Normal with no signs of trauma. EYES: PERRL, extraocular movements intact, sclera anicteric, conjunctiva clear. No ptosis. ENT: Ears normal, nares patent, oropharynx clear without exudates, moist mucous membranes. NECK: Trachea midline, full range of motion, supple. LUNGS: diminished breath sounds, no wheezing, monitor off oxygen, HEART: Regular rate and rhythm, S1, S2 without murmur, rub or gallop. ABDOMEN: Soft, nontender, nondistended, normoactive bowel sounds, no guarding, no rebound, no hepatosplenomegaly, no masses. EXTREMITIES: no edema. NEUROLOGICAL: Normal speech, gait not observed. PSYCH: Normal mood, normal affect. SKIN: Warm, dry, normal turgor, no rashes or lesions noted Laboratory Results - last 24 hr 10/23/17 10/23/17 10/24/17 17:47 22:37 21:48 WBC RBC Hgb Hct MCV MCH MCHC RDW Plt Count MPV Neutrophils % Lymphocytes % Monocytes % Eosinophils % Basophils % Sodium Potassium Chloride Carbon Dioxide Anion Gap BUN Creatinine Creat Clearance w eGFR POC Glucometer 188.29284 114.19623 [phone] Random Glucose Calcium Phosphorus Magnesium Total Bilirubin AST ALT Alkaline Phosphatase Total Protein Albumin 10/25/17 10/25/17 10/26/17 06:20 20:45 05:36 WBC RBC Hgb Hct MCV MCH MCHC RDW Plt Count MPV Neutrophils % Lymphocytes % Monocytes % Eosinophils % Basophils % Sodium Potassium Chloride Carbon Dioxide Anion Gap BUN Creatinine Creat Clearance w eGFR POC Glucometer 144.95779 95.15568 159.35496 Random Glucose Calcium Phosphorus Magnesium Total Bilirubin AST ALT Alkaline Phosphatase Total Protein Albumin 10/26/17 10/27/17 10/28/17 22:54 18:25 05:32 WBC 6.8 RBC 2.66 L Hgb 8.4 L Hct 25.5 L MCV 96.2 H MCH 31.6 MCHC 32.9 RDW 15.5 Plt Count 250 MPV 8.0 Neutrophils % 75.4 Lymphocytes % 8.9 Monocytes % 13.4 H Eosinophils % 1.8 Basophils % 0.5 Sodium Potassium Chloride Carbon Dioxide Anion Gap BUN Creatinine Creat Clearance w eGFR POC Glucometer 213.12987 150.01724 Random Glucose Calcium Phosphorus Magnesium Total Bilirubin AST ALT Alkaline Phosphatase Total Protein Albumin 10/28/17 05:32 WBC RBC Hgb Hct MCV MCH MCHC RDW Plt Count MPV Neutrophils % Lymphocytes % Monocytes % Eosinophils % Basophils % Sodium 140 Potassium 5.0 Chloride 108 H Carbon Dioxide 25 Anion Gap 7 L BUN 14 Creatinine 0.9 Creat Clearance w eGFR > 60 POC Glucometer Random Glucose 150 H Calcium 6.6 L* Phosphorus 2.0 L Magnesium 2.2 D Total Bilirubin 0.2 D AST 30 ALT 20 Alkaline Phosphatase 306 H Total Protein 5.6 L Albumin 1.6 L Active Medications Generic Name Dose Route Start Last Admin Trade Name Freq PRN Reason Stop Dose Admin Ascorbic Acid 500 mg 10/26/17 10:00 10/28/17 09:09 Vitamin C - PO 500 mg DAILY [facility] Administration Calcium Carbonate 500 mg 10/26/17 10:00 10/28/17 09:23 Os-Jamar 500mg - PO 500 mg DAILY [facility] Administration Chlorhexidine Gluconate 1 applic 10/25/17 22:00 10/27/17 22:25 Hibiclens For Decolonization - TP 1 applic HS [facility] Administration Docusate Sodium 300 mg 10/25/17 22:00 10/27/17 22:13 Colace - PO 300 mg HS [facility] Administration Enoxaparin Sodium 80 mg 10/25/17 22:00 10/28/17 09:09 Lovenox - SQ 80 mg BID [facility] Administration Guaifenesin 10 ml 10/26/17 00:00 10/28/17 06:21 Robitussin - PO Not Given Q6HPO [facility] CEFTRIAXONE 1 G/50 ML PREMIX 50 mls @ 100 mls/hr 10/26/17 10:00 10/28/17 09: 07 Ceftriaxone 1 Gm-D5w Bag IVPB 100 mls/hr DAILY [facility] Administration CEFTRIAXONE 1 G/50 ML PREMIX 50 mls @ 100 mls/hr 10/29/17 10:00 Ceftriaxone 1 Gm-D5w Bag IVPB 10/29/17 10:29 ONCE ONE Insulin Aspart 1 vial 10/25/17 22:00 10/27/17 23:48 Novolog Vial Sliding Scale - SQ Not Given HS [facility] Protocol Insulin Aspart 1 vial 10/26/17 07:00 10/28/17 06:18 Novolog Vial Sliding Scale - SQ Not Given TIDAC [facility] Protocol Morphine Sulfate 60 mg 10/25/17 22:00 10/28/17 09:08 Ms Contin - PO 60 mg BID [facility] Administration Non-Formulary Medication 120 mg 11/21/17 13:15 Denosumab SQ Q30D [facility] Oseltamivir Phosphate 75 mg 10/25/17 22:00 10/27/17 23:49 Tamiflu - PO 10/28/17 09:59 75 mg BID [facility] Administration Pantoprazole Sodium 40 mg 10/26/17 10:00 10/28/17 09:09 Protonix - PO 40 mg DAILY [facility] Administration Polyethylene Glycol 17 gm 10/26/17 10:00 10/28/17 09:23 Miralax (For Daily Use) - PO 17 gm DAILY [facility] Administration Pregabalin 150 mg 10/25/17 22:00 10/28/17 06:20 Lyrica - PO 150 mg TID [facility] Administration Saliva Substitute 1 applic 10/26/17 10:00 10/27/17 09:38 Mouthkote Solution - MM 1 applic DAILY [facility] Administration Venlafaxine HCl 75 mg 10/26/17 10:00 10/28/17 09:22 Effexor Xr - PO 75 mg DAILY [facility] Administration ASSESSMENT/PLAN: Patient is an 87 year old male with a significant past medical history of metastatic prostate Ca, pulmonary embolism (s/p ivc filter and Lovenox), diabetes mellitus and small bowel obstruction. Patient admitted on 10/22/2017 for pneumonia and was recently diagnosed with influenza as an outpatient. Mr. Gonzalez is a [facility] palliative care patient. Patient is reported to be a DNR/ DNI as per [facility] palliative care, to bring in MOLST form. ID: Severe sepsis secondary to influenza vs. bacterial pneumonia Off pressors, patient appears to be doing better Pre and post completed by respiratory therapis On Ceftriaxone, last dose tomororw Unine legionella negative WBC stable, afebrile ID following Endocrine: Diabetes mellitus BGMs with Novolog coverage Monitor blood sugars Oncology: Prostate cancer Continue Xgeva Pulmonary: Pulmonary Embolus history On Home Lovenox 80mg BID to continue Patient also has IVC filter F.E.N. Fluids: tolerating PO Electrolytes: hypophosphotemia: supplements, Hypomag: resolved, Hypocalcemia: corrected 8.6 Nutrition: regular diet Prophylaxis: DVT: Lovenox 80mg BID GI: deferred Disposition: Patient is to be discharged to [facility] tomorrow. Patient is reported to be a DNR/DNI as per [facility] care, to bring in MOLST form. Visit type - Emergency Visit Emergency Visit: Yes ED Registration Date: 10/22/17 Care time: The patient presented to the Emergency Department on the above date and was hospitalized for further evaluation of their emergent condition. - New Patient This patient is new to me today: No - Critical Care Critical Care patient: No - Discharge Referral Referred to [facility] Med P.C.: No
[2017-10-28] MEDS ORDERED: ALBUTEROL SO4 2.5/IPRATROPIUM 0.5 INH SOL 3 ML VIAL.NEB. NEB ONE (10:03)
[2017-10-28] MEDS ORDERED: ALBUTEROL SO4 2.5/IPRATROPIUM 0.5 INH SOL 3 ML VIAL.NEB. NEB PRN (10:03)
[2017-10-28] MEDS ORDERED: ACETAMINOPHEN 325 MG TABLET (FP) PO SCH (10:45)
[2017-10-28] MEDS: LIDOCAINE 5% TOPICAL PATCH TP SCH (11:06)
[2017-10-28] MEDS: LYTES/YERBA SANTA 240 ML BOTTLE MM SCH (11:06)
[2017-10-28] MEDS: ACETAMINOPHEN 325 MG TABLET (FP) PO SCH ×2 (12:25→18:04)
--- NOTE | 2017-10-28 13:27 | PN ---
Progress Note, Physician History of Present Illness: Occasional cough and dyspnea resolved, comfortable OOB to chair. - Current Medication List Current Medications: Active Medications Acetaminophen (Tylenol -) 650 mg PO Q6HPO [facility] Last Admin: 10/28/17 12:25 Dose: 650 mg Albuterol/Ipratropium (Duoneb -) 1 amp NEB Q6H PRN PRN Reason: SHORTNESS OF BREATH Ascorbic Acid (Vitamin C -) 500 mg PO DAILY [facility] Last Admin: 10/28/17 09:09 Dose: 500 mg Calcium Carbonate (Os-Jamar 500mg -) 500 mg PO DAILY [facility] Last Admin: 10/28/17 09:23 Dose: 500 mg Chlorhexidine Gluconate (Hibiclens For Decolonization -) 1 applic TP [facility] Last Admin: 10/27/17 22:25 Dose: 1 applic Docusate Sodium (Colace -) 300 mg PO [facility] Last Admin: 10/27/17 22:13 Dose: 300 mg Enoxaparin Sodium (Lovenox -) 80 mg SQ BID [facility] Last Admin: 10/28/17 09:09 Dose: 80 mg Guaifenesin (Robitussin -) 10 ml PO Q6HPO [facility] Last Admin: 10/28/17 12:25 Dose: 10 ml CEFTRIAXONE 1 G/50 ML PREMIX (Ceftriaxone 1 Gm-D5w Bag) 50 mls @ 100 mls/hr IVPB DAILY [facility] Last Admin: 10/28/17 09:07 Dose: 100 mls/hr CEFTRIAXONE 1 G/50 ML PREMIX (Ceftriaxone 1 Gm-D5w Bag) 50 mls @ 100 mls/hr IVPB ONCE ONE Stop: 10/29/17 10:29 Insulin Aspart (Novolog Vial Sliding Scale -) 1 vial SQ HS [facility] PRN Reason: Protocol Last Admin: 10/27/17 23:48 Dose: Not Given Insulin Aspart (Novolog Vial Sliding Scale -) 1 vial SQ TIDAC [facility] PRN Reason: Protocol Last Admin: 10/28/17 12:27 Dose: 3 unit Lidocaine (Lidoderm Patch -) 1 patch TP DAILY [facility] Last Admin: 10/28/17 11:06 Dose: 1 patch Miscellaneous (Lidoderm Patch Removal) 1 each MC DAILY@2200 [facility] Morphine Sulfate (Ms Contin -) 60 mg PO BID [facility] Last Admin: 10/28/17 09:08 Dose: 60 mg Non-Formulary Medication (Denosumab) 120 mg SQ Q30D [facility] Pantoprazole Sodium (Protonix -) 40 mg PO DAILY [facility] Last Admin: 10/28/17 09:09 Dose: 40 mg Polyethylene Glycol (Miralax (For Daily Use) -) 17 gm PO DAILY [facility] Last Admin: 10/28/17 09:23 Dose: 17 gm Potassium Phos/Sodium Phos (Phos-Nak Packet -) 1 packet PO BID [facility] Last Admin: 10/28/17 12:27 Dose: 1 packet Pregabalin (Lyrica -) 150 mg PO TID [facility] Last Admin: 10/28/17 13:21 Dose: 150 mg Saliva Substitute (Mouthkote Solution -) 1 applic MM DAILY [facility] Last Admin: 10/28/17 11:06 Dose: 1 applic Venlafaxine HCl (Effexor Xr -) 75 mg PO DAILY [facility] Last Admin: 10/28/17 09:22 Dose: 75 mg - Objective Vital Signs: Vital Signs Temperature 98.6 F 10/28/17 12:00 Pulse Rate 92 H 10/28/17 12:50 Respiratory Rate 20 10/28/17 12:00 Blood Pressure 115/50 10/28/17 12:00 O2 Sat by Pulse Oximetry (%) 94 L 10/28/17 12:50 Constitutional: Yes: No Distress, Calm Neck: Yes: Supple Cardiovascular: Yes: Regular Rate and Rhythm Respiratory: Yes: Regular, Diminished, On Nasal O2 Gastrointestinal: Yes: Normal Bowel Sounds, Soft Edema: No Labs: CBC, BMP 10/28/17 05:32 10/28/17 05:32 INR, PTT INR 1.24 (0.82-1.09) H 10/22/17 08:44 Problem List - Problems (1) [id number] kidney injury Code(s): N17.9 - ACUTE KIDNEY FAILURE, UNSPECIFIED; N18.9 - CHRONIC KIDNEY DISEASE, UNSPECIFIED Qualifiers: Chronic kidney disease stage: stage 2 (mild) (2) Hypotension Code(s): I95.9 - HYPOTENSION, UNSPECIFIED Qualifiers: Hypotension type: other hypotension type Qualified Code(s): I95.89 - Other hypotension (3) Pulmonary embolism Code(s): I26.99 - OTHER PULMONARY EMBOLISM WITHOUT ACUTE COR PULMONALE Qualifiers: Chronicity: chronic Acute cor pulmonale presence: without acute cor pulmonale (4) DVT (deep venous thrombosis) Code(s): I82.409 - ACUTE EMBOLISM AND THOMBOS UNSP DEEP VN UNSP LOWER EXTREMITY Qualifiers: DVT location: lower extremity Affected thrombotic vein of extremity: popliteal Chronicity: acute Laterality: left Qualified Code(s): I82.432 - Acute embolism and thrombosis of left popliteal vein (5) Prostate cancer metastatic to bone Code(s): C61 - MALIGNANT NEOPLASM OF PROSTATE; C79.51 - SECONDARY MALIGNANT NEOPLASM OF BONE (6) Weakness Code(s): R53.1 - WEAKNESS (7) Chronic anticoagulation Code(s): Z79.01 - NURSING HOME (CURRENT) USE OF ANTICOAGULANTS (8) Anemia Code(s): D64.9 - ANEMIA, UNSPECIFIED Qualifiers: Anemia type: unspecified type Qualified Code(s): D64.9 - Anemia, unspecified (9) Influenza Code(s): J11.1 - FLU DUE TO UNIDENTIFIED INFLUENZA VIRUS W OTH RESP MANIFEST Assessment/Plan 10/22/2017 Echo: Normal biventricular size and fxn, mild TR 1. Acute Hypoxic Respiratory Failure, r/o PNA, Influenza, post septic shock 2. 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 DVT - left popliteal vein post IVC filter insertion 6. History of metastatic prostate carcinoma on monoclonal ab 7. Acute on CKD improved 8. Anemia 9. Type 2 DM PLAN: 1. Complete Tamiflu and abx course per ID, f/u C&S 2. Continue long-term Lovenox 80 bid considering his met prostate ca history 3. Monitor CBC closely and transfuse as needed to maintain Hg equal or > 8.0 4. BD, O2 to keep SpO2 >90%, GI protection, d/c planning
--- NOTE | 2017-10-28 14:50 | PN ---
Progress Note (short form) - Note Progress Note: Breathing continues to improve. Some mild residual dry cough. Intake & Output 10/25/17 10/26/17 10/27/17 10/28/17 23:59 23:59 23:59 23:59 Intake Total 900 665 350 Output Total 100 1100 Balance 800 665 350 -1100 Weight 178 lb 1 oz 179 lb 6.4 oz 181 lb 14.102 oz 179 lb 11.2 oz Last Vital Signs Temp Pulse Resp BP Pulse Ox 98.6 F 92 H 20 115/50 94 L 10/28/17 12:00 10/28/17 12:50 10/28/17 12:00 10/28/17 12:00 10/28/17 12:50 Active Medications Acetaminophen (Tylenol -) 650 mg PO Q6HPO [facility] Last Admin: 10/28/17 12:25 Dose: 650 mg Albuterol/Ipratropium (Duoneb -) 1 amp NEB Q6H PRN PRN Reason: SHORTNESS OF BREATH Ascorbic Acid (Vitamin C -) 500 mg PO DAILY [facility] Last Admin: 10/28/17 09:09 Dose: 500 mg Calcium Carbonate (Os-Jamar 500mg -) 500 mg PO DAILY [facility] Last Admin: 10/28/17 09:23 Dose: 500 mg Chlorhexidine Gluconate (Hibiclens For Decolonization -) 1 applic TP [facility] Last Admin: 10/27/17 22:25 Dose: 1 applic Docusate Sodium (Colace -) 300 mg PO [facility] Last Admin: 10/27/17 22:13 Dose: 300 mg Enoxaparin Sodium (Lovenox -) 80 mg SQ BID [facility] Last Admin: 10/28/17 09:09 Dose: 80 mg Guaifenesin (Robitussin -) 10 ml PO Q6HPO [facility] Last Admin: 10/28/17 12:25 Dose: 10 ml CEFTRIAXONE 1 G/50 ML PREMIX (Ceftriaxone 1 Gm-D5w Bag) 50 mls @ 100 mls/hr IVPB DAILY [facility] Last Admin: 10/28/17 09:07 Dose: 100 mls/hr CEFTRIAXONE 1 G/50 ML PREMIX (Ceftriaxone 1 Gm-D5w Bag) 50 mls @ 100 mls/hr IVPB ONCE ONE Stop: 10/29/17 10:29 Insulin Aspart (Novolog Vial Sliding Scale -) 1 vial SQ [facility] PRN Reason: Protocol Last Admin: 10/27/17 23:48 Dose: Not Given Insulin Aspart (Novolog Vial Sliding Scale -) 1 vial SQ TIDAC [facility] PRN Reason: Protocol Last Admin: 10/28/17 12:27 Dose: 3 unit Lidocaine (Lidoderm Patch -) 1 patch TP DAILY [facility] Last Admin: 10/28/17 11:06 Dose: 1 patch Miscellaneous (Lidoderm Patch Removal) 1 each MC DAILY@2200 [facility] Morphine Sulfate (Ms Contin -) 60 mg PO BID [facility] Last Admin: 10/28/17 09:08 Dose: 60 mg Non-Formulary Medication (Denosumab) 120 mg SQ Q30D [facility] Pantoprazole Sodium (Protonix -) 40 mg PO DAILY [facility] Last Admin: 10/28/17 09:09 Dose: 40 mg Polyethylene Glycol (Miralax (For Daily Use) -) 17 gm PO DAILY [facility] Last Admin: 10/28/17 09:23 Dose: 17 gm Potassium Phos/Sodium Phos (Phos-Nak Packet -) 1 packet PO BID [facility] Last Admin: 10/28/17 12:27 Dose: 1 packet Pregabalin (Lyrica -) 150 mg PO TID [facility] Last Admin: 10/28/17 13:21 Dose: 150 mg Saliva Substitute (Mouthkote Solution -) 1 applic MM DAILY [facility] Last Admin: 10/28/17 11:06 Dose: 1 applic Venlafaxine HCl (Effexor Xr -) 75 mg PO DAILY [facility] Last Admin: 10/28/17 09:22 Dose: 75 mg OBJECTIVE: Gen: Awake and alert, NAD Heart: RRR Lung: bibasilar rhonchi, rales Abd: soft, nontender Ext: dependent edema Laboratory Results - last 24 hr 10/23/17 10/23/17 10/24/17 17:47 22:37 21:48 WBC RBC Hgb Hct MCV MCH MCHC RDW Plt Count MPV Neutrophils % Lymphocytes % Monocytes % Eosinophils % Basophils % Sodium Potassium Chloride Carbon Dioxide Anion Gap BUN Creatinine Creat Clearance w eGFR POC Glucometer 188.32964 114.91898 189.79046 Random Glucose Calcium Phosphorus Magnesium Total Bilirubin AST ALT Alkaline Phosphatase Total Protein Albumin 10/25/17 10/25/17 10/26/17 06:20 20:45 05:36 WBC RBC Hgb Hct MCV MCH MCHC RDW Plt Count MPV Neutrophils % Lymphocytes % Monocytes % Eosinophils % Basophils % Sodium Potassium Chloride Carbon Dioxide Anion Gap BUN Creatinine Creat Clearance w eGFR POC Glucometer 144.60507 95.65651 159.42736 Random Glucose Calcium Phosphorus Magnesium Total Bilirubin AST ALT Alkaline Phosphatase Total Protein Albumin 10/26/17 10/27/17 10/28/17 22:54 18:25 05:32 WBC 6.8 RBC 2.66 L Hgb 8.4 L Hct 25.5 L MCV 96.2 H MCH 31.6 MCHC 32.9 RDW 15.5 Plt Count 250 MPV 8.0 Neutrophils % 75.4 Lymphocytes % 8.9 Monocytes % 13.4 H Eosinophils % 1.8 Basophils % 0.5 Sodium Potassium Chloride Carbon Dioxide Anion Gap BUN Creatinine Creat Clearance w eGFR POC Glucometer 213.42409 150.16502 Random Glucose Calcium Phosphorus Magnesium Total Bilirubin AST ALT Alkaline Phosphatase Total Protein Albumin 10/28/17 05:32 WBC RBC Hgb Hct MCV MCH MCHC RDW Plt Count MPV Neutrophils % Lymphocytes % Monocytes % Eosinophils % Basophils % Sodium 140 Potassium 5.0 Chloride 108 H Carbon Dioxide 25 Anion Gap 7 L BUN 14 Creatinine 0.9 Creat Clearance w eGFR > 60 POC Glucometer Random Glucose 150 H Calcium 6.6 L* Phosphorus 2.0 L Magnesium 2.2 D Total Bilirubin 0.2 D AST 30 ALT 20 Alkaline Phosphatase 306 H Total Protein 5.6 L Albumin 1.6 L ASSESSMENT AND PLAN: Acute Hypoxic Respiratory Failure r/o Pneumonia r/o Influenza Severe Sepsis h/o PE Metastatic Prostate Ca DM - ABX will be completed by tomorrow - O2 to keep SpO2 >90% - AC - PO as tolerated - Check Pre and Post ambulation O2 saturation Dr Merchant
[2017-10-28] MEDS: DOCUSATE SODIUM 100 MG CAPSULE (FP) PO SCH (21:34)
[2017-10-28] MEDS ORDERED: LIDOCAINE PATCH REMOVAL MC SCH (22:00)
[2017-10-29] MEDS: ACETAMINOPHEN 325 MG TABLET (FP) PO SCH ×2 (05:32→13:41)
[2017-10-29] MEDS: PREGABALIN 50 MG CAPSULE PO SCH ×2 (05:32→13:41)
[2017-10-29] MEDS: ASPIRIN/DIPYRIDAMOLE 25 MG/200 MG CAPSULE (FP) PO SCH ×2 (05:33→11:15)
[2017-10-29] MEDS: CHLORHEXIDINE GLUCONATE 4% CLEANSER FOR DECOLONIZATION TP SCH (05:33)
[2017-10-29] MEDS: INSULIN SLIDING SCALE (NOVOLOG) 1 VIAL SQ SCH ×3 (05:33→12:56)
[2017-10-29] MEDS: guaiFENesin 200 MG/10 ML 10 ML UNIT-DOSE CUPS PO SCH ×3 (05:34→13:41)
[2017-10-29 06:42] LABS: CHLORIDE 110 mmol/L (98-107); POTASSIUM 4.9 mmol/L (3.5-5.1); SODIUM 143 mmol/L (136-145)
[2017-10-29 06:47] LABS: BASO % 0.3 % (0-2.0); EOS % 2.2 % (0-4.5); HEMATOCRIT 24.4 % (35.4-49); LYMPH % 8.4 % (8-40); MCH 31.8 pg (25.7-33.7); MCHC 32.9 g/dl (32.0-35.9); MEAN CELL VOLUME 96.6 fl (80-96); MEAN PLT VOLUME 7.9 fl (7.5-11.1); NEUT % 76.1 % (42.8-82.8); PLATELET COUNT 268 K/MM3 (134-434); RBC 2.53 M/mm3 (4.00-5.60); RDW 15.2 % (11.9-15.9); WHITE BLOOD COUNT 6.8 K/mm3 (4.0-10.0)
[2017-10-29 06:57] LABS: ALBUMIN 1.6 g/dl (3.4-5.0); ALK PHOS 264 U/L (45-117); ANION GAP 5 (8-16); BILIRUBIN,TOTAL 0.3 mg/dL (0.2-1.0); BLOOD UREA NITROGEN 15 mg/dL (7-18); CO2 28 mmol/L (21-32); CREATININE 0.9 mg/dL (0.7-1.3); GLUCOSE,RANDOM 147 mg/dL (74-106); MAGNESIUM 2.1 mg/dL (1.8-2.4); SGOT/AST 23 U/L (15-37); SGPT/ALT 19 U/L (12-78); TOT PROT 5.6 g/dl (6.4-8.2)
[2017-10-29 07:00] LABS: CALCIUM 6.9 mg/dL (8.5-10.1)
--- NOTE | 2017-10-29 07:10 | PN ---
Progress Note (short form) - Note Progress Note: Chief Complaint: Events noted, notes reviewed, lethargic but arousable in distress, sinus rhythm is noted History of Present Illness: Seen and examined on telemetry. Events noted, notes reviewed, lethargic but arousable in distress, sinus rhythm is noted Echocardiography dated 10/22/2017 revealed normal bi-ventricular size and function, mild TR - Current Medication List Current Medications Acetaminophen (Tylenol -) 650 mg PO Q6HPO [facility] Last Admin: 10/29/17 05:32 Dose: 650 mg Albuterol/Ipratropium (Duoneb -) 1 amp NEB Q6H PRN PRN Reason: SHORTNESS OF BREATH Ascorbic Acid (Vitamin C -) 500 mg PO DAILY [facility] Last Admin: 10/28/17 09:09 Dose: 500 mg Calcium Carbonate (Os-Jamar 500mg -) 500 mg PO DAILY [facility] Last Admin: 10/28/17 09:23 Dose: 500 mg Chlorhexidine Gluconate (Hibiclens For Decolonization -) 1 applic TP [facility] Last Admin: 10/29/17 05:33 Dose: 1 applic Dipyridamole/Aspirin (Aggrenox -) 1 combo PO BID [facility] Last Admin: 10/29/17 05:33 Dose: Not Given Docusate Sodium (Colace -) 300 mg PO [facility] Last Admin: 10/28/17 21:34 Dose: 300 mg Enoxaparin Sodium (Lovenox -) 80 mg SQ BID [facility] Last Admin: 10/28/17 21:37 Dose: 80 mg Guaifenesin (Robitussin -) 10 ml PO Q6HPO [facility] Last Admin: 10/29/17 05:34 Dose: 10 ml CEFTRIAXONE 1 G/50 ML PREMIX (Ceftriaxone 1 Gm-D5w Bag) 50 mls @ 100 mls/hr IVPB DAILY [facility] Last Admin: 10/28/17 09:07 Dose: 100 mls/hr CEFTRIAXONE 1 G/50 ML PREMIX (Ceftriaxone 1 Gm-D5w Bag) 50 mls @ 100 mls/hr IVPB ONCE ONE Stop: 10/29/17 10:29 Insulin Aspart (Novolog Vial Sliding Scale -) 1 vial SQ HS [facility] PRN Reason: Protocol Last Admin: 10/29/17 05:33 Dose: Not Given Insulin Aspart (Novolog Vial Sliding Scale -) 1 vial SQ TIDAC [facility] PRN Reason: Protocol Last Admin: 10/29/17 06:22 Dose: Not Given Lidocaine (Lidoderm Patch -) 1 patch TP DAILY [facility] Last Admin: 10/28/17 11:06 Dose: 1 patch Miscellaneous (Lidoderm Patch Removal) 1 each MC DAILY@2200 [facility] Last Admin: 10/29/17 05:32 Dose: 1 each Morphine Sulfate (Ms Contin -) 60 mg PO BID [facility] Last Admin: 10/28/17 21:34 Dose: 60 mg Non-Formulary Medication (Denosumab) 120 mg SQ Q30D [facility] Pantoprazole Sodium (Protonix -) 40 mg PO DAILY [facility] Last Admin: 10/28/17 09:09 Dose: 40 mg Polyethylene Glycol (Miralax (For Daily Use) -) 17 gm PO DAILY [facility] Last Admin: 10/28/17 09:23 Dose: 17 gm Potassium Phos/Sodium Phos (Phos-Nak Packet -) 1 packet PO BID [facility] Last Admin: 10/28/17 21:38 Dose: 1 packet Pregabalin (Lyrica -) 150 mg PO TID [facility] Last Admin: 10/29/17 05:32 Dose: 150 mg Saliva Substitute (Mouthkote Solution -) 1 applic MM DAILY [facility] Last Admin: 10/28/17 11:06 Dose: 1 applic Venlafaxine HCl (Effexor Xr -) 75 mg PO DAILY [facility] Last Admin: 10/28/17 09:22 Dose: 75 mg Review of Systems Constitutional: Denies: Chills or Fever Cardiovascular: As noted above Respiratory: reports: Cough Gastrointestinal: Denies: Nausea, Vomiting, Diarrhea, Constipation or Abdominal Pain Genitourinary: No symptoms reported Neurology: No seizures or syncope - Objective Vital Signs: Last Vital Signs Temp Pulse Resp BP Pulse Ox 99.1 F 75 18 135/68 94 L 10/29/17 00:00 10/29/17 04:00 10/29/17 04:00 10/29/17 04:00 10/28/17 21:00 Intake & Output 10/26/17 10/27/17 10/28/17 10/29/17 23:59 23:59 23:59 23:59 Intake Total 665 350 Output Total 1100 Balance 665 350 -1100 Weight 179 lb 6.4 oz 181 lb 14.102 oz 179 lb 11.2 oz Constitutional: No Distress, Calm Neck: Supple Negative JVD Cardiovascular: S1 S2 Regular Rate and Rhythm Respiratory: Diminished Breath Sounds at the Bases Gastrointestinal: Soft Benign Normal Bowel Sounds Ext: No Edema Labs: CBC, BMP 10/29/17 05:22 10/29/17 05:22 Hepatic Panel Total Bilirubin 0.3 mg/dL (0.2-1.0) D 10/29/17 05:22 AST 23 U/L (15-37) D 10/29/17 05:22 ALT 19 U/L (12-78) 10/29/17 05:22 Alkaline Phosphatase 264 U/L (45-117) H 10/29/17 05:22 Albumin 1.6 g/dl (3.4-5.0) L 10/29/17 05:22 Assessment/Plan ASSESSMENT: 1. Acute Hypoxic Respiratory Failure, resolved 2. Pneumonia/bronchitis, Influenza, resolving, post septic shock, resolved 3. History of sub-massive pulmonary embolism post catheter directed mechanical thrombectomy and TPA infusion with resolution of right ventricular strain 4. 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 DM 6. DVT - left popliteal vein post IVC filter insertion 7. History of metastatic prostate carcinoma on monoclonal antibody 8. Acute on CKD, resolved 9. Anemia PLAN: 1. Antibiotics as per ID service 2. Continue long-term Lovenox therapy, history of metastatic prostate carcinoma 3. Consider D/C Dipyridamole/Aspirin (Aggrenox) therapy considering above noted anemia and may use ASA if not contraindicated 4. Add B-Blockers with caution 5. Monitor CBC closely and transfuse as needed to maintain Hg equal or > 8.0 Sue alvarado MD
--- NOTE | 2017-10-29 08:08 | DS ---
Physical Exam: SUBJECTIVE: Patient seen and examined at the bedside. He is awake and alert, in no acute distress. Denies pain, denies shortness of breath. OBJECTIVE: For discharge to [facility] today On patient admission on 06/2017, pt had a positive urine culture (esbl), he was treated with antibiotics at [facility]. Urine cultures on this admission are negative, no growth Vital Signs Period Temp Pulse Resp BP Sys/Kim Pulse Ox Last 24 Hr 98.6 F-99.1 F 69-92 18-20 93-135/45-68 94-98 PHYSICAL EXAM GENERAL: The patient is awake, alert, and fully oriented, in no acute distress. HEAD: Normal with no signs of trauma. EYES: PERRL, extraocular movements intact, sclera anicteric, conjunctiva clear. No ptosis. ENT: Ears normal, nares patent, oropharynx clear without exudates, moist mucous membranes. NECK: Trachea midline, full range of motion, supple. LUNGS: diminished breath sounds, no wheezing, monitor off oxygen, HEART: Regular rate and rhythm, S1, S2 without murmur, rub or gallop. ABDOMEN: Soft, nontender, nondistended, normoactive bowel sounds, no guarding, no rebound, no hepatosplenomegaly, no masses. EXTREMITIES: no edema. NEUROLOGICAL: Normal speech, gait not observed. PSYCH: Normal mood, normal affect. SKIN: Warm, dry, normal turgor, no rashes or lesions noted LABS Laboratory Results - last 24 hr 10/29/17 10/29/17 10/29/17 05:22 05:22 06:01 WBC 6.8 RBC 2.53 L Hgb 8.0 L Hct 24.4 L MCV 96.6 H MCH 31.8 MCHC 32.9 RDW 15.2 Plt Count 268 MPV 7.9 Neutrophils % 76.1 Lymphocytes % 8.4 Monocytes % 13.0 H Eosinophils % 2.2 Basophils % 0.3 Sodium 143 Potassium 4.9 Chloride 110 H Carbon Dioxide 28 Anion Gap 5 L BUN 15 Creatinine 0.9 Creat Clearance w eGFR > 60 POC Glucometer [phone] Random Glucose 147 H Calcium 6.9 L* Magnesium 2.1 Total Bilirubin 0.3 D AST 23 D ALT 19 Alkaline Phosphatase 264 H Total Protein 5.6 L Albumin 1.6 L HOSPITAL COURSE: Date of Admission:10/22/17 Date of Discharge: 10/29/17 ASSESSMENT/PLAN: Patient is an 87 year old male with a significant past medical history of metastatic prostate cancer, pulmonary embolism (s/p ivc filter and Lovenox), diabetes mellitus and small bowel obstruction. Patient admitted on 10/22/2017 for pneumonia and was recently diagnosed with influenza as an outpatient. Mr. Gonzalez is a [place] palliative care patient. Patient is reported to be a DNR/ DNI as per [place] palliative care, to bring in MOLST form. ID: Severe sepsis secondary to influenza vs. bacterial pneumonia, resolved Off pressors, maintaining blood pressure, vitals stable Pre and post completed by respiratory therapist Completed full dose of IV antibiotics Unine legionella negative WBC stable, afebrile Influenza (Acute), resolved Treated with tamiflu Pulmonary: Pulmonary Embolus history, chronic Chronic anticoagulation On Home Lovenox 80mg BID to continue Patient also has IVC filter Bronchitis, acute on chronic, resolved on supplemental oxygen, monitor respiratory status Finished full course of IV antibiotics Endocrine: Diabetes mellitus, chronic BGMs with Novolog coverage Monitor blood sugars, continue home medications Cardiology: CHF (congestive heart failure), NYHA class II, acute on chronic Started on Metoprolol, hold if systolic <100, heart rate <60 Monitor BP Hypotension, resolved Renal: Nmkdm-gx-mtimyhh kidney injury, resolved Monitor with labs Oncology: Prostate cancer, chronic Continue Xgeva Neuro: CVA history, 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 Freed) for continuation of Aggrenox vs. ASA therapy daily F.E.N. Fluids: tolerating PO Electrolytes: hypophosphotemia: supplements, Hypomag: resolved, Hypocalcemia: corrected 8.9 Nutrition: regular diet Prophylaxis: DVT: Lovenox 80mg BID GI: deferred Disposition: Patient is to be discharged to [facility]. Patient is reported to be a DNR/DNI as per [place] palliative care, to bring in MOLST form. Minutes to complete discharge: 60 Discharge Summary Reason For Visit: PNEUMONIA Current Active Problems Acute bronchitis (Acute) Jmmyu-lf-mojriyz kidney injury (Acute) Anemia (Acute) CHF (congestive heart failure), NYHA class II (Acute) Chronic anticoagulation (Acute) Elevated troponin (Acute) Hypotension (Acute) Influenza (Acute) Primary prostate cancer with metastasis from prostate to other site (Acute) Pulmonary embolism (Acute) Sepsis (Acute) Condition: Improved - Instructions Diet, Activity, Other Instructions: Mr. Gonzalez: Please continue all prescribed medications as directed. Please call me if you have any questions or concerns. I can be reached at: [phone] ANTONIO Hough @ [facility] Disposition: [facility] - Home Medications Comprehensive Discharge Medication List: Ambulatory Orders Morphine (Avinza) [Avinza] 60 mg PO BID 06/03/17 Pregabalin [Lyrica] 150 mg PO TID 06/03/17 Ascorbate Calcium [Vitamin C] 500 mg PO DAILY 10/22/17 Calcium Carbonate [Calcium] 500 mg PO DAILY 10/22/17 Docusate Sodium [Colace] 300 mg PO HS 10/22/17 Enoxaparin Sodium [Lovenox] 80 mg SQ BID 10/22/17 Polyethylene Glycol 3350 [Miralax (For Daily Use) -] 17 gm PO DAILY 10/22/17 This patient is new to me today: No Emergency Visit: Yes ED Registration Date: 10/22/17 Care time: The patient presented to the Emergency Department on the above date and was hospitalized for further evaluation of their emergent condition. Critical Care patient: No - Discharge Referral [facility]erred to [facility] Med P.C.: No
[2017-10-29 09:31] LABS: HEMATOCRIT 25.5 % (35.4-49); HEMOGLOBIN 8.1 GM/dL (11.7-16.9); LYMPH % 8.9 % (8-40); MCHC 31.8 g/dl (32.0-35.9); MEAN CELL VOLUME 97.4 fl (80-96); MEAN PLT VOLUME 7.5 fl (7.5-11.1); MONO % 12.6 % (3.8-10.2); NEUT % 75.5 % (42.8-82.8); PLATELET COUNT 271 K/MM3 (134-434); RBC 2.62 M/mm3 (4.00-5.60); RDW 15.2 % (11.9-15.9); WHITE BLOOD COUNT 6.9 K/mm3 (4.0-10.0)
[2017-10-29] MEDS ORDERED: METOPROLOL TARTRATE 25 MG TABLET (FP) PO SCH (10:00)
[2017-10-29] MEDS ORDERED: CEFTRIAXONE 1 G/50 ML PREMIX 50 ML IVPB ONE (10:00)
[2017-10-29] MEDS ORDERED: PT OWN MED DRAWER 7, Y5N ONE (11:00)
[2017-10-29] MEDS: CEFTRIAXONE 1 G/50 ML PREMIX 50 ML IVPB SCH (11:15)
[2017-10-29] MEDS: VENLAFAXINE HCL 75 MG E.R. CAPSULES (FP) PO SCH (11:15)
[2017-10-29] MEDS: ASCORBIC ACID 500 MG TABLET (FP) PO SCH (11:16)
[2017-10-29] MEDS: PANTOPRAZOLE 40 MG TABLET (FP) PO SCH (11:16)
[2017-10-29] MEDS: morphine SO4 SUSTAINED ACTING 30 MG TABLET.SA PO SCH (11:16)
[2017-10-29] MEDS: CALCIUM (OYSTER SHELL) 500 MG TABLET (FP) PO SCH (11:16)
[2017-10-29] MEDS: ENOXAPARIN NA (PORCINE) 80 MG/0.8 ML DISP.SYRIN SQ SCH (11:17)
[2017-10-29] MEDS: LIDOCAINE 5% TOPICAL PATCH TP SCH (11:17)
[2017-10-29] MEDS: NAPH,MB-DB/K PH,MBDB POWDER PACKET PO SCH (11:20)
[2017-10-29 12:09] VITALS: BP 108/46; PULSE 69; TEMP 97.7
[2017-11-21] MEDS ORDERED: DENOSUMAB 120 MG SQ SCH (13:15)
== END 2017-10-29 14:12 | DRG 871 ==
LOC: FER 08:04 → JICU 19:45 → J2W 10-25 20:21
PROVIDERS: ADMIT Internal Medicine; ATTEND Nurse Practitioner Family
DX: A41.9 Sepsis, unspecified organism (principal); J96.01 Acute respiratory failure with hypoxia; N17.9 Acute kidney failure, unspecified; I13.0 Hypertensive heart and chronic kidney disease with heart failure and stage 1 through stage 4 chronic kidney disease, or unspecified chronic kidney disease; I50.30 Unspecified diastolic (congestive) heart failure; N39.0 Urinary tract infection, site not specified; C79.51 Secondary malignant neoplasm of bone; J20.9 Acute bronchitis, unspecified; D64.9 Anemia, unspecified; E83.39 Other disorders of phosphorus metabolism; E83.42 Hypomagnesemia; E83.51 Hypocalcemia; I25.119 Atherosclerotic heart disease of native coronary artery with unspecified angina pectoris; C61 Malignant neoplasm of prostate; J11.1 Influenza due to unidentified influenza virus with other respiratory manifestations; E11.22 Type 2 diabetes mellitus with diabetic chronic kidney disease; R53.1 Weakness; Z86.711 Personal history of pulmonary embolism; N18.2 Chronic kidney disease, stage 2 (mild)
CPT/HCPCS: 36415; 70450-TC; 71045-TC; 72070-TC; 80053; 81003; 81015; 82550; 82803; 82962; 83605; 83735; 83880; 84100; 84484; 85025; 85027; 85610; 85730; 86850; 86900; 86901; 87040; 87086; 87186; 87804; 87899; 93005; 93306-TC; 94640; 94761; 97116-GP; 97161-GP; 99285-25; G0480

== ENCOUNTER 2017-11-03 13:03 | Emergency (ER) | payer OTHER ==
[2017-11-03 13:27] VITALS: TEMP 98.1; BMI 23.0
--- NOTE | 2017-11-03 14:05 | PDOC ---
History of Present Illness - General Chief Complaint: Injury Stated Complaint: FALL Time Seen by Provider: 11/03/17 14:05 - History of Present Illness Initial Comments: 87 year old male with a significant past medical history of metastatic prostate cancer, pulmonary embolism 3 months prior (s/p IVC filter an), IDDM, and remote hx of small bowel obstruction presenting 3 hours s/p fall (12:00) with head trauma and left elbow trauma. States that he was reaching for his walker (currently in rehab and not allowed to walk on his own) by himself, against guidelines of his rehab and missed which caused him to fall forward, striking the wall then falling backwards and striking his head and left elbow. States that he remembers the event in reasonable detail and did not experience any diaphoresis, presyncopal sensation, palpitations, or unsteadiness during the fall. Did not lose consciousness. His only complaints are left inferior occipital pain and left elbow pain. Denies fevers, chills, nausea, vomiting, visual symptoms chest pain, SOB, or other sick symptoms. Patient admitted on and discharged on 10/31/17 for pneumonia and influenza requiring brief ICU stay. 11/03/17 14:44 Past History - Past Medical History Allergies/Adverse Reactions: Allergies Allergy/AdvReac Type Severity Reaction Status Date / Time No Known Drug Allergies Allergy Verified 11/03/17 13:25 Home Medications: Ambulatory Orders Morphine (Avinza) [Avinza] 60 mg PO BID 06/03/17 Pregabalin [Lyrica] 150 mg PO TID 06/03/17 Ascorbate Calcium [Vitamin C] 500 mg PO DAILY 10/22/17 Calcium Carbonate [Calcium] 500 mg PO DAILY 10/22/17 Docusate Sodium [Colace] 300 mg PO HS 10/22/17 Enoxaparin Sodium [Lovenox] 80 mg SQ BID 10/22/17 Polyethylene Glycol 3350 [Miralax 119 gm Btl -] 17 gm PO DAILY 10/22/17 Albuterol 2.5/Ipratropium 0.5 [Duoneb -] 1 amp NEB Q6H PRN amp 10/29/17 Aspirin/Dipyridamole [Aggrenox -] 1 combo PO BID capsule 10/29/17 Guaifenesin [Robitussin -] 10 ml PO Q6HPO cup 10/29/17 Insulin Sliding Scale [Novolog Vial Sliding Scale -] 1 vial SQ HS units Insulin Sliding Scale [Novolog Vial Sliding Scale -] 1 vial SQ TIDAC units Lidocaine 5% Patch [Lidoderm -] 1 patch TP DAILY patch 10/29/17 Lidocaine Patch Removal [Lidoderm Patch Removal] 1 each MC DAILY@2200 each Lytes/Yerba Amanda [Mouthkote Solution -] 1 applic MM DAILY applic 10/29/17 Metoprolol Tartrate [Lopressor -] 25 mg PO BID tablet 10/29/17 Naph,Mb-Db/K pH,Mbdb [PHOS-NaK PACKET -] 1 packet PO TID pow 10/29/17 Anemia: No Asthma: No Cancer: No (PROSTATE WITH METS TO SPINE) Cardiac Disorders: No CVA: No COPD: Yes (PE many years ago) CHF: No Dementia: No Diabetes: Yes (TYPE I) GI Disorders: No Disorders: No HTN: No Hypercholesterolemia: No Liver Disease: No Psychiatric Problems: Yes (ANXIETY) Seizures: No Thyroid Disease: No - Surgical History Abdominal Surgery: Yes (ABD ADHESIONS) Appendectomy: Yes Cardiac Surgery: No Cholecystectomy: No Lung Surgery: No Neurologic Surgery: No Orthopedic Surgery: Yes (SEVERAL BACK SXS, LAST 03/2016) - Suicide/Smoking/Psychosocial Hx Smoking Status: No Smoking History: Unknown if ever smoked Have you smoked in the past 12 months: No Number of Cigarettes Smoked Daily: 0 If you are a former smoker, when did you quit?: 1985 Cigars Per Day: 0 Information on smoking cessation initiated: No Hx Alcohol Use: No Drug/Substance Use Hx: No Substance Use Type: None Hx Substance Use Treatment: No Review of Systems - Review of Systems Constitutional: No: Chills, Diaphoresis, Fever, Loss of Appetite, Weight Stable HEENTM: No: Eye Pain, Blurred Vision Respiratory: No: Cough, Shortness of Breath Cardiac (ROS): No: Chest Pain, Edema, Irregular Heart Rate ABD/GI: No: Constipated, Diarrhea, Nausea, Vomiting : No: Burning, Dysuria, Discharge Musculoskeletal: No: Back Pain, Joint Pain Integumentary: Yes: Bruising, Erythema Neurological: No: Headache, Numbness, Paresthesia Hematologic/Lymphatic: Yes: Easy Bleeding *Physical Exam - Vital Signs Last Vital Signs Temp Pulse Resp BP Pulse Ox 98.1 F 66 18 102/44 96 11/03/17 13:03 11/03/17 13:03 11/03/17 13:03 11/03/17 13:03 11/03/17 13:03 - Physical Exam General Appearance: Yes: Nourished, Appropriately Dressed. No: Apparent Distress HEENT: positive: EOMI, REGGIE, Other (inferior left sided occiptal laceration, linear and superficial in appearance.). negative: Normal ENT Inspection Neck: positive: Trachea midline, Normal Thyroid, Supple, Other (Able to fully range neck without TTP). negative: Tender, Rigid Respiratory/Chest: positive: Lungs Clear, Normal Breath Sounds. negative: Chest Tender, Respiratory Distress Cardiovascular: positive: Regular Rhythm, Regular Rate Gastrointestinal/Abdominal: positive: Normal Bowel Sounds, Flat, Soft. negative : Tender Musculoskeletal: negative: Normal Inspection (left elbow laceration with bleding , no obvius bone or tendon) Extremity: positive: Normal Capillary Refill, Normal Range of Motion. negative : Normal Inspection (per above) Integumentary: negative: Normal Color, Dry, Warm (defects per above) Neurologic: positive: Fully Oriented, Alert, Normal Mood/Affect, Normal Response Procedures - Laceration/Wound Repair Left Lower Posterior Head Wound Length: 2.6 to 5.0 cm Wound Explored: clean, no foreign body present Wound's Depth, Shape: superficial, linear Irrigated w/ Saline: Yes Betadine Prep: No (750 mL sterile water used) Anesthesia: 1% Lidocaine Amount of Anesthetic (ccs): 4 Wound Debrided: minimal Wound Repaired With: Emerson (5) Layer Closure: No Sterile Dressing Applied: Yes (4x4 guaze with kerlex wrap) Splint Applied: No Left Posterior Lateral Elbow Wound Length: 2.6 to 5.0 cm Wound Explored: clean, no foreign body present Wound's Depth, Shape: superficial, flap, stellate, contused tissue Irrigated w/ Saline: Yes Betadine Prep: No (750 ml sterile water) Anesthesia: 1% Lidocaine Amount of Anesthetic (ccs): 3 Wound Debrided: minimal Wound Repaired With: Steri-strips (3) Layer Closure: No Sterile Dressing Applied: Yes (4x 4 sterile guaze with with sixto wrap over the joint for integrity) Splint Applied: No Progress: 11/04/17 13:51 Skin was stellate and flap-like but contused and too frail to apply sutures. Three steri-strips were applied with good approximation and wound closure. Hemostasis was achieved. Medical Decision Making - Medical Decision Making 87 year old male with PMH of metastatic prostate CA presenting from rehab s/p 3 hour old fall. Likely mechanical fall given lack of cardiac/ neurological prodrome symptoms. Patient states that he recalls the event entirely and has no residual symptoms on examination (AO x3). Will get head CT and re-evaluate. 11/03/17 15:[address] negative, patient still AOx3. Wounds evaluated, irrigated and closed with emerson and steri-strips per procedure notes. Gave instructions to return within 7-10 days for wound evaluation and removal of emerson, Pain was controlled and hemostasis was achieved. Patiennt unable to walk on his own per his deconditioned baseline but ambulance was used to help him return to rehab. 11/04/17 13:54 *DC/Admit/Observation/Transfer Diagnosis at time of Disposition: Traumatic head injury with multiple lacerations Qualifiers: Encounter type: initial encounter Qualified Code(s): S09.90XA - Unspecified injury of head, initial encounter - Discharge Dispostion Disposition: HOME Condition at time of disposition: Improved Admit: No - Referrals Referrals: Ting Calvert MD [Primary Care Provider] - - Patient Instructions Additional Instructions: Please keep your head emerson clean and dry. Please return in 7-10 days to the ED or to your primary care physician to have the emerson removed. Please return to the ED if you have worsening pain around the staple site or you notice worsening swelling, pain, fevers, chills, at or near the elbow and head wound. - Post Discharge Activity
--- NOTE | 2017-11-03 15:08 | PDOC ---
Attending Attestation - Resident Resident Name: Anastasia Morales - ED Attending Attestation I have performed the following: I have examined & evaluated the patient, The case was reviewed & discussed with the resident, I agree w/resident's findings & plan, Exceptions are as noted - HPI HPI: 11/03/17 15:02 87 M with h/o metastatic prostate cancer, pulmonary embolism 3 months prior (s/ p IVC filter an), IDDM, recent admission for PNA, presenting to ER for fall. Pt states that he was trying to get out of bed and reach his walker to use the restroom when he lost his supervisor solder making and fill to the ground, hitting his head against the wall and landing on his L elbow. Pt denies LOC. He denies feeling dizzy or lightheaded prior to falling. Denies ever having CP/SOB/palpitations. Denies any F/C. Pt states that he is not supposed to get out of bed without assistance but could not wait to use the bathroom. Now complains of mild pain in his elbow now. Denies SALAS, neck pain. - Physicial Exam PE: 11/03/17 15:08 "GENERAL: Awake, alert, and fully oriented, in no acute distress HEAD: Hematoma + laceration to occiput EYES: PERRLA, EOMI, sclera anicteric, conjunctiva clear ENT: Auricles normal inspection, hearing grossly normal, nares patent, oropharynx clear without exudates. Moist mucosa NECK: Nontender, no stepoffs, Normal ROM, supple, no lymphadenopathy, JVD, or masses LUNGS: Breath sounds equal, clear to auscultation bilaterally. No wheezes, and no crackles HEART: Regular rate and rhythm, normal S1 and S2, no murmurs, rubs or gallops ABDOMEN: Soft, nontender, normoactive bowel sounds. No guarding, no rebound. No masses EXTREMITIES: L elbow with abrasion + laceration, full ROM NEUROLOGICAL: Cranial nerves II through XII intact. 5/5 strength and sensation in all extremities, Normal speech, normal gait SKIN: Warm, Dry, normal turgor, no rashes or lesions noted. " - Medical Decision Making 11/03/17 15:09 87 M with head and elbow injury after mechanical fall. Pt without any LOC, no signs/symptoms of syncope or presyncope. - CTH - XR L elbow - Lac repair CTH and XR negative for acute fx or bleed Lacs repaired Pt re-evaluated - continues to feel well. Vitals normal, pt well appearing. Clinically stable for DC. I discussed the physical exam findings, ancillary test results and final diagnoses with the patient. I answered all of the patient's questions. The patient was satisfied with the care received and felt comfortable with the discharge plan and treatment plan. The patient agrees to follow up with the primary care physician within 24-72 hours.
[2017-11-03 20:32] VITALS: BP 137/60; PULSE 63
== END 2017-11-03 20:41 | disposition home or self-care (01) ==
LOC: JER 13:03
DX: S01.01XA Laceration without foreign body of scalp, initial encounter (principal); S51.012A Laceration without foreign body of left elbow, initial encounter; W06.XXXA Fall from bed, initial encounter; Y93.89 Activity, other specified; Y92.122 Bedroom in nursing home as the place of occurrence of the external cause; Y99.8 Other external cause status; Z85.46 Personal history of malignant neoplasm of prostate; Z85.830 Personal history of malignant neoplasm of bone; E10.9 Type 1 diabetes mellitus without complications; Z79.4 Long term (current) use of insulin; Z86.711 Personal history of pulmonary embolism; Z79.01 Long term (current) use of anticoagulants; Z95.828 Presence of other vascular implants and grafts; R26.89 Other abnormalities of gait and mobility; Z99.89 Dependence on other enabling machines and devices
CPT/HCPCS: 70450-TC; 73070-TC-LT; 99283-25

== ENCOUNTER 2017-11-11 12:35 | Emergency (ER) | payer OTHER ==
[2017-11-11 12:47] VITALS: BMI 23.0
--- NOTE | 2017-11-11 12:49 | PDOC ---
History of Present Illness - General Stated Complaint: R/O DVT LEFT LEG Time Seen by Provider: 11/11/17 12:44 - History of Present Illness Initial Comments: 11/11/17 12:56 Chief complaint: Left leg pain and swelling History of present illness: Patient is recovering from pneumonia in a rehabilitation facility, yesterday was walking behind his wheelchair, felt sudden pain in his left popliteal area, and noted swelling just below the knee posteriorly. Review of systems: Denies fever, chest pain, shortness of breath, abdominal pain , nausea, vomiting, diarrhea, visual or focal neurologic symptoms, unsteadiness of gait. Denies distal numbness tingling pain or weakness in the ankle or foot. Past medical history: Patient is on anticoagulants Lovenox and Aggrenox due to multiple pulmonary emboli. Has prostate cancer. Also coronary artery disease, CHF. Social history: Mild dementia, rehabilitation facility for pneumonia, is in good health, plans to go home. No tobacco or alcohol. No nonprescription drugs Family history: Reviewed and noncontributory Physical exam: Mildly confused but awake, cooperative, appropriately answers questions about his symptoms. Afebrile, vital signs normal PERRLA, ENT clear Neck supple without bruit mass or nodes Chest clear CV regular without murmur rub or gallop Abdomen benign Extremities: There is swelling and tenderness in the left popliteal fossa. There is no swelling or edema distally. Pulses are full. No sensory deficits. No erythema or induration. Impression: The mechanism of injury and the physical findings suggest muscle strain/tear or ruptured Cherry's cyst. History of pulmonary emboli, rule out DVT despite anticoagulant therapy Plan: Ultrasound and further medical management depending on results. Past History - Past Medical History Allergies/Adverse Reactions: Allergies Allergy/AdvReac Type Severity Reaction Status Date / Time No Known Drug Allergies Allergy Verified 11/11/17 12:38 Home Medications: Ambulatory Orders Aa/Hydrolyzed Collagen, Whey [Lps 15-30 Liquid] 30 ml PO DAILY 11/11/17 Albuterol 2.5/Ipratropium 0.5 [Duoneb -] 1 neb NEB Q6H 11/11/17 Amoxicillin/Potassium Clav [Augmentin 500-125 Tablet] 1 each PO Q8H 11/11/17 Amoxicillin/Potassium Clav [Augmentin 875-125 Tablet] 1 each PO ASDIR 11/11/17 Ascorbic Acid [Vitamin C] 500 mg PO DAILY 11/11/17 Aspirin/Dipyridamole [Aggrenox -] 1 combo PO BID 11/11/17 Cholecalciferol (Vitamin D3) [Vitamin D3] 5,000 unit PO DAILY 11/11/17 Denosumab [Xgeva] 1.7 ml SQ ASDIR 11/11/17 Docusate Sodium [Colace] 300 mg PO HS 11/11/17 Enoxaparin Sodium [Lovenox] 80 mg SQ BID 11/11/17 Guaifenesin [Robitussin] 10 ml PO Q6H 11/11/17 Lidocaine [Lidocare] 1 each TP DAILY 11/11/17 Metoprolol Tartrate [Lopressor -] 25 mg PO BID 11/11/17 Morphine Sulfate [Morphine Sulfate ER] 30 mg PO Q12H 11/11/17 Multivitamin [One Daily] 1 each PO DAILY 11/11/17 Naph,Mb-Db/K pH,Mbdb [PHOS-NaK PACKET -] 1 packet PO TID 11/11/17 Pantoprazole Sodium 40 mg PO DAILY 11/11/17 Polyethylene Glycol 3350 [Miralax (For Daily Use) -] 17 gm PO DAILY 11/11/17 Pregabalin [Lyrica] 150 mg PO Q8H 11/11/17 Sitagliptin Phos/Metformin HCl [Janumet 50-1,000 mg Tablet] 1 each PO BID Venlafaxine HCl ER [Effexor Xr -] 75 mg PO DAILY 11/11/17 Anemia: No Asthma: No Cancer: No (PROSTATE WITH METS TO SPINE) Cardiac Disorders: No CVA: No COPD: Yes (PE many years ago) CHF: No Dementia: No Diabetes: Yes (TYPE I) GI Disorders: No Disorders: No HTN: No Hypercholesterolemia: No Liver Disease: No Psychiatric Problems: Yes (ANXIETY) Seizures: No Thyroid Disease: No - Surgical History Abdominal Surgery: Yes (ABD ADHESIONS) Appendectomy: Yes Cardiac Surgery: No Cholecystectomy: No Lung Surgery: No Neurologic Surgery: No Orthopedic Surgery: Yes (SEVERAL BACK SXS, LAST 03/2016) - Suicide/Smoking/Psychosocial Hx Smoking Status: No Smoking History: Unknown if ever smoked Have you smoked in the past 12 months: No Number of Cigarettes Smoked Daily: 0 If you are a former smoker, when did you quit?: 1985 Cigars Per Day: 0 Hx Alcohol Use: No Drug/Substance Use Hx: No Substance Use Type: None Hx Substance Use Treatment: No Medical Decision Making - Medical Decision Making 11/11/17 15:06 Doppler is negative for DVT. Complex mass was visualized, consistent with ruptured Cherry's cyst or torn muscle/hematoma Trent wrap applied. Rest and nonweightbearing. Follow-up with orthopedist. This was discussed with the patient's and physical therapy was recommended. She will see her orthopedist for further evaluation and treatment Patient transported back to senior care facility by ambulance to follow-up as recommended *DC/Admit/Observation/Transfer Diagnosis at time of Disposition: Ruptured Bakers cyst - Discharge Dispostion Disposition: HOME Condition at time of disposition: Stable - Referrals Referrals: Og Rod MD [Staff Physician] - 3 days - Patient Instructions Printed Discharge Instructions: DI for Cherry's Cyst, How to Apply an Trent Wrap Additional Instructions: Ice for 24-48 hours. Recheck orthopedist. Consider physical therapy. Limited weightbearing until pain is improved. - Post Discharge Activity
[2017-11-11 16:34] VITALS: BP 114/73; PULSE 79; TEMP 98.1
== END 2017-11-11 16:40 | disposition home or self-care (01) ==
LOC: FER 12:35
DX: M66.0 Rupture of popliteal cyst (principal); F03.90 Unspecified dementia, unspecified severity, without behavioral disturbance, psychotic disturbance, mood disturbance, and anxiety; Z87.891 Personal history of nicotine dependence; F41.9 Anxiety disorder, unspecified
CPT/HCPCS: 93971-TC; 99283-25

== ENCOUNTER 2017-11-15 11:40 | Observation (INO) | payer OTHER ==
[2017-11-15 12:07] VITALS: BMI 23.1
[2017-11-15 13:24] LABS: BASO % 0.3 % (0-2.0); EOS % 2.4 % (0-4.5); HEMATOCRIT 20.5 % (35.4-49); MCHC 34.2 g/dl (32.0-35.9); MEAN CELL VOLUME 93.8 fl (80-96); MEAN PLT VOLUME 7.8 fl (7.5-11.1); MONO % 8.9 % (3.8-10.2); NEUT % 79.4 % (42.8-82.8); PLATELET COUNT 313 K/MM3 (134-434); RBC 2.18 M/mm3 (4.00-5.60); WHITE BLOOD COUNT 8.5 K/mm3 (4.0-10.8)
[2017-11-15 13:31] LABS: ALBUMIN 2.4 g/dl (3.5-5.0); ALK PHOS 193 U/L (32-92); ANION GAP 8 (8-16); BLOOD UREA NITROGEN 26 mg/dl (7-18); CALCIUM 8.1 mg/dl (8.4-10.2); CHLORIDE 100 mmol/L (98-107); CO2 22 mmol/L (22-28); GLUCOSE,RANDOM 191 mg/dl (74-106); POTASSIUM 5.2 mmol/L (3.5-5.1); SGOT/AST 28 U/L (10-42); SGPT/ALT 19 U/L (10-40); SODIUM 130 mmol/L (136-145); TOT PROT 6.9 g/dl (6.4-8.3)
[2017-11-15 13:39] LABS: INR 1.12 (0.82-1.09); PROTHROMBIN TIME (PATIENT) 12.5 SEC (10.2-13.0)
--- NOTE | 2017-11-15 13:39 | PDOC ---
History of Present Illness - General Chief Complaint: Blood Transfusion Stated Complaint: BLOOD TRANSFUSION Time Seen by Provider: 11/15/17 12:12 - History of Present Illness Initial Comments: 11/15/17 13:40 Chief complaint: Anemia History of present illness: Patient sent in by [facility] facility after H&H of 6.9 and 21 yesterday. No signs of active bleeding. Review of systems: No dizziness, lightheadedness, chest pain, shortness of breath, abdominal pain nausea vomiting diarrhea hematemesis melena bloody stool visual or focal neurologic symptoms. No hematuria or other urinary tract symptoms. Swelling of the left popliteal fossa and upper calf thought due to a ruptured Cherry's cyst or torn muscle. Ultrasound for DVT one week ago was negative Past medical history: Malignant prostate cancer, chronic renal failure, insulin- dependent diabetes, hypertension, ASHD, CHF, pulmonary embolus, recent pneumonia , bedridden, in rehabilitation. Social history: Rehabilitation program in a local [facility], prior to that was living at home with his , who is in good health. No tobacco alcohol or nonprescription drugs. Bedridden,, transfers to a wheelchair. Family history: Reviewed and noncontributory Physical exam: Mildly confused, chronic dementia, but cheerful and cooperative, verbal and able to convey his medical symptoms Afebrile, vital signs normal Pale, nonicteric PERRLA, fundi benign, ENT ear Neck supple without bruit mass or nodes Lungs clear to P&A. No wheezes rales or rhonchi. No dullness to percussion. Good inspiration CV S1 and S2 distant without murmur rub or gallop pulses full and symmetric no JVD or edema no bruits 68 and regular Abdomen nondistended, bowel sounds normal. Soft without masses tenderness organomegaly Neurological generalized weakness, no focal sensory or motor deficits, gait not assessed. Cranial nerves are intact Extremities: There is a hard tender mass palpable in the popliteal fossa on the left, extending to the upper calf. Ultrasound last week showed a complex mass that could be a hematoma or a ruptured Cherry's cyst, but no evidence of DVT Impression: Significant anemia, no sign of active bleeding, probably anemia of chronic disease. Plan: Stool for occult blood, CBC and chemistries, type and cross, transfuse slowly with monitoring due to past CHF. Past History - Past Medical History Allergies/Adverse Reactions: Allergies Allergy/AdvReac Type Severity Reaction Status Date / Time No Known Drug Allergies Allergy Verified 11/11/17 12:38 Home Medications: Ambulatory Orders Aa/Hydrolyzed Collagen, Whey [Lps 15-30 Liquid] 30 ml PO DAILY 11/11/17 Albuterol 2.5/Ipratropium 0.5 [Duoneb -] 1 neb NEB Q6H 11/11/17 Amoxicillin/Potassium Clav [Augmentin 500-125 Tablet] 1 each PO Q8H 11/11/17 Ascorbic Acid [Vitamin C] 500 mg PO DAILY 11/11/17 Aspirin/Dipyridamole [Aggrenox -] 1 combo PO BID 11/11/17 Cholecalciferol (Vitamin D3) [Vitamin D3] 5,000 unit PO DAILY 11/11/17 Denosumab [Xgeva] 1.7 ml SQ ASDIR 11/11/17 Docusate Sodium [Colace] 300 mg PO HS 11/11/17 Enoxaparin Sodium [Lovenox] 80 mg SQ BID 11/11/17 Guaifenesin [Robitussin] 10 ml PO Q6H 11/11/17 Lidocaine [Lidocare] 1 each TP DAILY 11/11/17 Morphine Sulfate [Morphine Sulfate ER] 30 mg PO Q12H 11/11/17 Multivitamin [One Daily] 1 each PO DAILY 11/11/17 Naph,Mb-Db/K pH,Mbdb [PHOS-NaK PACKET -] 1 packet PO TID 11/11/17 Pantoprazole Sodium 40 mg PO DAILY 11/11/17 Polyethylene Glycol 3350 [Miralax (For Daily Use) -] 17 gm PO DAILY 11/11/17 Pregabalin [Lyrica] 150 mg PO Q8H 11/11/17 Sitagliptin Phos/Metformin HCl [Janumet 50-1,000 mg Tablet] 1 each PO BID Venlafaxine HCl ER [Effexor Xr -] 75 mg PO DAILY 11/11/17 Anemia: No Asthma: No Cancer: No (PROSTATE WITH METS TO SPINE) Cardiac Disorders: No CVA: No COPD: Yes (PE many years ago) CHF: No Dementia: No Diabetes: Yes (TYPE I) GI Disorders: No Disorders: No HTN: No Hypercholesterolemia: No Liver Disease: No Psychiatric Problems: Yes (ANXIETY) Seizures: No Thyroid Disease: No - Surgical History Abdominal Surgery: Yes (ABD ADHESIONS) Appendectomy: Yes Cardiac Surgery: No Cholecystectomy: No Lung Surgery: No Neurologic Surgery: No Orthopedic Surgery: Yes (SEVERAL BACK SXS, LAST 03/2016) - Suicide/Smoking/Psychosocial Hx Smoking Status: No Smoking History: Unknown if ever smoked Have you smoked in the past 12 months: No Number of Cigarettes Smoked Daily: 0 If you are a former smoker, when did you quit?: 1985 Cigars Per Day: 0 Information on smoking cessation initiated: No Hx Alcohol Use: No Drug/Substance Use Hx: No Substance Use Type: None Hx Substance Use Treatment: No *Physical Exam - Vital Signs Last Vital Signs Temp Pulse Resp BP Pulse Ox 98.2 F 70 20 138/58 97 11/15/17 11:54 11/15/17 11:54 11/15/17 11:54 11/15/17 11:54 11/15/17 11:54 ED Treatment Course - LABORATORY CBC & Chemistry Diagram: 11/15/17 12:35 11/15/17 12:35 - ADDITIONAL ORDERS Additional order review: Laboratory Results 11/15/17 12:55 Stool Occult Blood Negative 11/15/17 12:35 RBC 2.18 L D MCV 93.8 MCHC 34.2 RDW 15.0 MPV 7.8 D Neutrophils % 79.4 Lymphocytes % 9.0 D Monocytes % 8.9 Eosinophils % 2.4 D Basophils % 0.3 - RADIOLOGY Radiology Studies Ordered: Category Date Time Status CHEST X-RAY PORTABLE* [RAD] Stat Radiology 11/15/17 12:44 Completed Medical Decision Making - Medical Decision Making 11/15/17 14:20 H&H 7 and 20.9. White count and platelets within normal limits. Stool is medium brown, occult blood negative. MCV is 104. B12 and folate sent Blood for type and cross, to transfuse when available, slowly, monitoring for fluid overload Admitted to hospitalist for blood transfusion, consider anemia workup. 11/15/17 14:26 EKG reviewed: Sinus rhythm 68/m, first-degree AV block, left axis deviation, borderline LVH, incomplete LBBB. No change from prior. 11/15/17 14:57 Chest x-ray reviewed: No significant congestion, infiltrate. No acute disease Patient remains clinically asymptomatic, hemodynamically stable, upon transfer to the medical floor. *DC/Admit/Observation/Transfer Diagnosis at time of Disposition: Anemia Qualifiers: Anemia type: unspecified type Qualified Code(s): D64.9 - Anemia, unspecified - Discharge Dispostion Admit: Yes - Referrals - Patient Instructions - Post Discharge Activity
[2017-11-15 13:59] LABS: PH,URINE 5.5 (4.5-8); URINE APPEARANCE Clear; URINE BILIRUBIN Negative (NEGATIVE); URINE GLUCOSE (UA) Negative (NEGATIVE); URINE KETONE Negative (NEGATIVE); URINE LEUK ESTERASE Negative (NEGATIVE); URINE NITRITE Negative (NEGATIVE); URINE UROBILINOGEN 0.2 (0.2-1.0)
[2017-11-15 14:07] LABS: URINE BLOOD Trace-intact (NEGATIVE); URINE COLOR YELLOW; URINE PROTEIN 1+ (NEGATIVE)
[2017-11-15 14:23] LABS: BILIRUBIN,TOTAL 0.4 mg/dl (0.2-1.0)
[2017-11-15 20:02] LABS: URINE BACTERIA FEW /hpf (NEGATIVE); URINE WBC 0-2 (0-2)
[2017-11-15] MEDS ORDERED: guaiFENesin 200 MG/10 ML 10 ML UNIT-DOSE CUPS PO PRN (20:09)
[2017-11-15] MEDS ORDERED: DENOSUMAB SQ SCH (20:15)
[2017-11-15] MEDS: ALBUTEROL SO4 2.5/IPRATROPIUM 0.5 INH SOL 3 ML VIAL.NEB. NEB SCH (20:55)
[2017-11-15] MEDS: AMOX TR/POT CLAV 500MG/125MG TABLETS (FP) PO SCH (20:55)
[2017-11-15] MEDS: morphine SO4 SUSTAINED ACTING 30 MG TABLET.SA PO SCH (20:56)
[2017-11-15] MEDS: PREGABALIN 50 MG CAPSULE PO SCH (20:56)
[2017-11-15] MEDS: NAPH,MB-DB/K PH,MBDB POWDER PACKET PO SCH (21:37)
[2017-11-15] MEDS: ENOXAPARIN NA (PORCINE) 80 MG/0.8 ML DISP.SYRIN SQ SCH (21:37)
[2017-11-15] MEDS ORDERED: INSULIN SLIDING SCALE (NOVOLOG) 1 VIAL SQ SCH (22:00)
[2017-11-15] MEDS ORDERED: DOCUSATE SODIUM 100 MG CAPSULE (FP) PO SCH (22:00)
[2017-11-15] MEDS ORDERED: LIDOCAINE PATCH REMOVAL MC SCH (22:00)
[2017-11-15] MEDS ORDERED: PATIENT'S OWN MEDICATION (NON-FORMULARY) (Sitagliptin Phos/Metformin Hcl [Janumet 50-1,000 PO SCH (22:00)
[2017-11-15] MEDS: ASPIRIN/DIPYRIDAMOLE 25 MG/200 MG CAPSULE (FP) PO SCH (22:39)
--- NOTE | 2017-11-16 | HP ---
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 He has received 1 unit PRBC. His only complaint on exam is right heel pain. He denies chest pain, SOB, cough. ER course was notable for: (1) hgb 7.0 Recent Travel: pt denies PAST MEDICAL HISTORY: DM GERD Prostate CA with bone mets to sternum, ribs, iliac crests, last radiation last week. HTN carotid stenosis, 60%, followed by vascular chronic back pain Recurrent SBO, ex lap 30-40 years ago then managed conservatively thereafter PAST SURGICAL HISTORY: Multiple back surgeries: T12-L4 laminectomy and posterior fusion on CT scan. appendectomy Social History: Smoking: in past, quit many years ago, smoked 1ppd for approx 20 years Alcohol: daily one cocktail, vodka on the [facility]: pt denies Family History: Mother age 88, cancer, unknown type father age 70s, [place], previous "mini strokes" Sister age 77, cancer, unknown type 4 children, all healthy Allergies No Known Drug Allergies Allergy (Verified 11/11/17 12:38) HOME MEDICATIONS: 3 Medication Instructions Recorded Aa/Hydrolyzed Collagen, Whey [Lps 30 ml PO DAILY 11/11/17 15-30 Liquid] Albuterol 2.5/Ipratropium 0.5 1 neb NEB Q6H 11/11/17 [Duoneb -] Amoxicillin/Potassium Clav 1 each PO Q8H 11/11/17 [Augmentin 500-125 Tablet] Ascorbic Acid [Vitamin C] 500 mg PO DAILY 11/11/17 Aspirin/Dipyridamole [Aggrenox -] 1 combo PO BID 11/11/17 Cholecalciferol (Vitamin D3) 5,000 unit PO DAILY 11/11/17 [Vitamin D3] Denosumab [Xgeva] 1.7 ml SQ ASDIR 11/11/17 Docusate Sodium [Colace] 300 mg PO HS 11/11/17 Enoxaparin Sodium [Lovenox] 80 mg SQ BID 11/11/17 Guaifenesin [Robitussin] 10 ml PO Q6H 11/11/17 Lidocaine [Lidocare] 1 each TP DAILY 11/11/17 Morphine Sulfate [Morphine Sulfate 30 mg PO Q12H 11/11/17 ER] Multivitamin [One Daily] 1 each PO DAILY 11/11/17 Naph,Mb-Db/K pH,Mbdb [PHOS-NaK 1 packet PO TID 11/11/17 PACKET -] Pantoprazole Sodium 40 mg PO DAILY 11/11/17 Polyethylene Glycol 3350 [Miralax 17 gm PO DAILY 11/11/17 (For Daily Use) -] Pregabalin [Lyrica] 150 mg PO Q8H 11/11/17 Sitagliptin Phos/Metformin HCl 1 each PO BID 11/11/17 [Janumet 50-1,000 mg Tablet] Venlafaxine HCl ER [Effexor Xr -] 75 mg PO DAILY 11/11/17 REVIEW OF SYSTEMS CONSTITUTIONAL: Absent: fever, chills, diaphoresis, generalized weakness, malaise, loss of appetite, weight change HEENT: Absent: rhinorrhea, nasal congestion, throat pain, throat swelling, difficulty swallowing, mouth swelling, ear pain, eye pain, visual changes CARDIOVASCULAR: Absent: chest pain, syncope, palpitations, irregular heart rate, lightheadedness , peripheral edema RESPIRATORY: Absent: cough, shortness of breath, dyspnea with exertion, orthopnea, wheezing, stridor, hemoptysis GASTROINTESTINAL: Absent: abdominal pain, abdominal distension, nausea, vomiting, diarrhea, constipation, melena, hematochezia GENITOURINARY: Absent: dysuria, frequency, urgency, hesitancy, hematuria, flank pain, genital pain MUSCULOSKELETAL: Absent: myalgia, arthralgia, joint swelling, back pain, neck pain SKIN: Absent: rash, itching, pallor HEMATOLOGIC/IMMUNOLOGIC: Absent: easy bleeding, easy bruising, lymphadenopathy, frequent infections ENDOCRINE: Absent: unexplained weight gain, unexplained weight loss, heat intolerance, cold intolerance NEUROLOGIC: Absent: headache, focal weakness or paresthesias, dizziness, unsteady gait, seizure, mental status changes, bladder or bowel incontinence PSYCHIATRIC: Absent: anxiety, depression, suicidal or homicidal ideation, hallucinations. PHYSICAL EXAMINATION Vital Signs - 24 hr 3 11/15/17 11/15/17 11/15/17 11:54 15:47 16:34 Temperature 98.2 F 98.3 F Pulse Rate 70 68 Respiratory 20 20 20 Rate Blood Pressure 138/58 97/35 O2 Sat by Pulse 97 20 L 20 L Oximetry (%) 3 11/15/17 11/15/17 11/15/17 20:00 20:07 23:24 Temperature 99.2 F 98.7 F Pulse Rate 67 77 Respiratory 18 18 Rate Blood Pressure 104/56 101/38 O2 Sat by Pulse 98 93 L Oximetry (%) GENERAL: Awake, alert, and fully oriented, in no acute distress. HEAD: Normal with no signs of trauma. EYES: Pupils equal, round and reactive to light, extraocular movements intact, sclera anicteric, conjunctiva clear. No lid lag. EARS, NOSE, THROAT: Ears normal, nares patent, oropharynx clear without exudates. Moist mucous membranes. NECK: Normal range of motion, supple without lymphadenopathy, JVD, or masses. LUNGS: Breath sounds equal, clear to auscultation bilaterally. No wheezes, and no crackles. No accessory muscle use. HEART: Regular rate and rhythm, normal S1 and S2 without murmur, rub or gallop. ABDOMEN: Soft, nontender, not distended, normoactive bowel sounds, no guarding, no rebound, no masses. No hepatomegaly or splenomegaly. MUSCULOSKELETAL: Normal range of motion at all joints. No bony deformities or tenderness. No CVA tenderness. UPPER EXTREMITIES: 2+ pulses, warm, well-perfused. No cyanosis. No clubbing. No peripheral edema. LOWER EXTREMITIES: 2+ pulses, warm, well-perfused. No calf tenderness. No peripheral edema. NEUROLOGICAL: Cranial nerves II-XII intact. Normal speech. Normal gait. PSYCHIATRIC: Cooperative. Good eye contact. Appropriate mood and affect. SKIN: Warm, dry, normal turgor, no rashes or lesions noted, normal capillary refill. Erythema to right heel Laboratory Results - last 24 hr 3 11/15/17 11/15/17 11/15/17 11/15/17 12:35 12:35 12:35 12:55 16:00 17:21 WBC 8.5 RBC 2.18 L D Hgb 7.0 L D Hct 20.5 L D MCV 93.8 MCH 32.0 MCHC 34.2 RDW 15.0 Plt Count 313 D MPV 7.8 D Neutrophils % 79.4 Lymphocytes % 9.0 D Monocytes % 8.9 Eosinophils % 2.4 D Basophils % 0.3 PT with INR 12.5 INR 1.12 Sodium 130 L Potassium 5.2 H Chloride 100 Carbon Dioxide 22 Anion Gap 8 BUN 26 H Creatinine 1.0 Creat Clearance w eGFR > 60 POC Glucometer 110 187 Random Glucose 191 H D Calcium 8.1 L Ferritin 269.044 Total Bilirubin 0.4 AST 28 ALT 19 D Alkaline Phosphatase 193 H Creatine Kinase 230 Creatine Kinase Index 0.3 CK-MB (CK-2) 0.8 Troponin I < 0.03 Total Protein 6.9 Albumin 2.4 L Vitamin B12 300 Serum Folate 7 Urine Color Urine Appearance Urine pH Ur Specific [place] Urine Protein Urine Glucose (UA) Urine Ketones Urine Blood Urine Nitrite Urine Bilirubin Urine Urobilinogen Ur Leukocyte Esterase Urine RBC Urine WBC Urine Bacteria Stool Occult Blood Negative Anti-A Titer Blood Type A NEGATIVE Antibody Screen Negative Crossmatch See Detail 3 Urine Color Yellow 11/15/17 13:40 Urine Appearance Clear 11/15/17 13:40 Urine pH 5.5 (4.5-8) 11/15/17 13:40 Ur Specific [place] 1.020 (1.005-1.025) 11/15/17 13:40 Urine Protein 1+ (NEGATIVE) H 11/15/17 13:40 Urine Glucose (UA) Negative (NEGATIVE) 11/15/17 13:40 Urine Ketones Negative (NEGATIVE) 11/15/17 13:40 Urine Blood Trace-intact (NEGATIVE) H 11/15/17 13:40 Urine Nitrite Negative (NEGATIVE) 11/15/17 13:40 Urine Bilirubin Negative (NEGATIVE) 11/15/17 13:40 Ur Leukocyte Esterase Negative (NEGATIVE) 11/15/17 13:40 Urine RBC 2-5 /hpf (0-3) 11/15/17 13:40 Urine WBC 0-2 (0-2) 11/15/17 13:40 Urine Bacteria Few /hpf (NEGATIVE) 11/15/17 13:40 ASSESSMENT/PLAN: 86yM with PMH DM, GERD, Prostate CA with bone mets, HTN, chronic back pain and recurrent SBO who presented to the emergency room from [place] for [place] H/H. Anemia - received 1u PRBC - repeat CBC now - stool guaiac neg x 1, repeat in am if BM - iron studies pending, B12 and folate WNL HTN - on no BP meds presently, cont ot monitor H/o PE - cont lovenox bid DM - BGM AC/HS with novolog ss - cont janumet as this will likely be a very brief stay Prostate CA with bone mets - cont xgeva as outpatient - cont lidocane and MS ER for pain; miralax and colace for constipation DVT PPX - on full dose lovenox FEN - defer IVF, received 1uPRBC - hyponatremia, repeat BMP now - regular diet as tolerated Dispo: Pt currently requires further observation for his anemia requiring PRBC. DC home in am if hyponatremia improving and cbc stable Visit type - Emergency Visit Emergency Visit: Yes ED Registration Date: 11/15/17 Care time: The patient presented to the Emergency Department on the above date and was hospitalized for further evaluation of their emergent condition. - New Patient This patient is new to me today: Yes Date on this admission: 11/15/17 - Critical Care Critical Care patient: No
[2017-11-16 01:25] LABS: BASO % 0.8 % (0-2.0); EOS % 2.8 % (0-4.5); HEMATOCRIT 20.3 % (35.4-49); LYMPH % 13.3 % (8-40); MCH 30.5 pg (25.7-33.7); MCHC 32.6 g/dl (32.0-35.9); MEAN CELL VOLUME 93.3 fl (80-96); MEAN PLT VOLUME 8.5 fl (7.5-11.1); MONO % 10.4 % (3.8-10.2); NEUT % 72.7 % (42.8-82.8); PLATELET COUNT 246 K/MM3 (134-434); RBC 2.18 M/mm3 (4.00-5.60); RDW 16.4 % (11.9-15.9); WHITE BLOOD COUNT 7.2 K/mm3 (4.0-10.0)
[2017-11-16 01:30] LABS: HEMOGLOBIN 6.6 GM/dL (11.7-16.9)
[2017-11-16 01:54] LABS: ANION GAP 7 (8-16); BLOOD UREA NITROGEN 22 mg/dL (7-18); CALCIUM 7.5 mg/dL (8.5-10.1); CHLORIDE 106 mmol/L (98-107); CO2 25 mmol/L (21-32); CREATININE 0.8 mg/dL (0.7-1.3); GLUCOSE,RANDOM 125 mg/dL (74-106); SODIUM 138 mmol/L (136-145)
[2017-11-16] MEDS: PREGABALIN 50 MG CAPSULE PO SCH (05:13)
[2017-11-16] MEDS: NAPH,MB-DB/K PH,MBDB POWDER PACKET PO SCH (05:13)
[2017-11-16 06:35] VITALS: BP 107/41; PULSE 76; TEMP 97.6
[2017-11-16] MEDS ORDERED: metFORMIN HCL 500 MG TABLET (FP) PO SCH (07:00)
[2017-11-16] MEDS ORDERED: sitaGLIPtin PHOSPHATE 50 MG TABLET PO SCH (07:00)
[2017-11-16] MEDS ORDERED: INSULIN SLIDING SCALE (NOVOLOG) 1 VIAL SQ SCH (07:00)
[2017-11-16 07:57] LABS: BASO % 0.9 % (0-2.0); HEMATOCRIT 22.3 % (35.4-49); HEMOGLOBIN 7.5 GM/dl (11.7-16.9); LYMPH % 10.1 % (8-40); MCH 30.9 pg (25.7-33.7); MCHC 33.8 g/dl (32.0-35.9); MEAN CELL VOLUME 91.4 fl (80-96); MEAN PLT VOLUME 7.6 fl (7.5-11.1); MONO % 9.2 % (3.8-10.2); NEUT % 76.8 % (42.8-82.8); PLATELET COUNT 278 K/MM3 (134-434); RBC 2.44 M/mm3 (4.00-5.60); RDW 15.6 % (11.9-15.9); WHITE BLOOD COUNT 7.1 K/mm3 (4.0-10.8)
[2017-11-16 08:18] LABS: MAGNESIUM 1.9 mg/dL (1.8-2.4)
[2017-11-16] MEDS ORDERED: NAPH,MB-DB/K PH,MBDB POWDER PACKET PO ONE (08:39)
[2017-11-16] MEDS: ASPIRIN/DIPYRIDAMOLE 25 MG/200 MG CAPSULE (FP) PO SCH (09:05)
[2017-11-16] MEDS: ENOXAPARIN NA (PORCINE) 80 MG/0.8 ML DISP.SYRIN SQ SCH (09:39)
[2017-11-16] MEDS: AMOX TR/POT CLAV 500MG/125MG TABLETS (FP) PO SCH ×2 (09:40→12:00)
[2017-11-16] MEDS: morphine SO4 SUSTAINED ACTING 30 MG TABLET.SA PO SCH (09:41)
[2017-11-16] MEDS: ALBUTEROL SO4 2.5/IPRATROPIUM 0.5 INH SOL 3 ML VIAL.NEB. NEB SCH ×2 (09:42→12:30)
[2017-11-16] MEDS ORDERED: MULTIVITAMINS (DAILY MVI) TABLET (FP) PO SCH (10:00)
[2017-11-16] MEDS ORDERED: LIDOCAINE 5% TOPICAL PATCH TP SCH (10:00)
[2017-11-16] MEDS ORDERED: PANTOPRAZOLE 40 MG TABLET (FP) PO SCH (10:00)
[2017-11-16] MEDS ORDERED: ASCORBIC ACID 250 MG TABLET (FP) PO SCH (10:00)
[2017-11-16] MEDS ORDERED: CHOLECALCIFEROL (VITAMIN D3) 1,000 UNIT TABLET (FP) PO SCH (10:00)
[2017-11-16] MEDS ORDERED: POLYETHYLENE GLYCOL 3350 119 GM BTL PO SCH (10:00)
[2017-11-16] MEDS ORDERED: PATIENT'S OWN MEDICATION (NON-FORMULARY) (Aa/Hydrolyzed Collagen, Whey [Lps 15-30 Liquid] PO SCH (10:00)
[2017-11-16] MEDS ORDERED: VENLAFAXINE HCL 75 MG E.R. CAPSULES (FP) PO SCH (10:00)
--- NOTE | 2017-11-16 13:30 | DS ---
Physical Exam: SUBJECTIVE: Patient seen and examined Pt reports feels better, denies cp, sob,palpitations, dizziness, weakness, abdominal pain, N/V/D or urinary symptoms. OBJECTIVE: Vital Signs Period Temp Pulse Resp BP Sys/Kim Pulse Ox Last 24 Hr 97.6 F-99.2 F 67-77 18-20 97-107/35-56 20-98 PHYSICAL EXAM GENERAL: The patient is awake, alert, and fully oriented, in no acute distress. HEAD: Normal with no signs of trauma. EYES: PERRL, extraocular movements intact, sclera anicteric, conjunctiva clear. ENT: Ears normal, nares patent, oropharynx clear without exudates, moist mucous membranes. NECK: Trachea midline, full range of motion, supple. LUNGS: Breath sounds equal, clear to auscultation bilaterally, no wheezes, no crackles, no accessory muscle use. HEART: Regular rate and rhythm, S1, S2 without murmur, rub or gallop. ABDOMEN: Soft, non-tender, non-distended, normoactive bowel sounds, no guarding , no rebound, no hepatosplenomegaly, no masses. EXTREMITIES: 2+ pulses, warm, well-perfused, LLE with mild redness and swelling , NEUROLOGICAL: Cranial nerves II through XII grossly intact. Normal speech, gait not observed. PSYCH: Normal mood, normal affect. SKIN: Warm, dry, normal turgor, no rashes or lesions noted.Right heel redness, skin intact. LABS Laboratory Results - last 24 hr 11/15/17 11/15/17 11/15/17 12:35 12:35 12:35 WBC 8.5 RBC 2.18 L D Hgb 7.0 L D Hct 20.5 L D MCV 93.8 MCH 32.0 MCHC 34.2 RDW 15.0 Plt Count 313 D MPV 7.8 D Neutrophils % 79.4 Lymphocytes % 9.0 D Monocytes % 8.9 Eosinophils % 2.4 D Basophils % 0.3 PT with INR 12.5 INR 1.12 Sodium 130 L Potassium 5.2 H Chloride 100 Carbon Dioxide 22 Anion Gap 8 BUN 26 H Creatinine 1.0 Creat Clearance w eGFR > 60 POC Glucometer Random Glucose 191 H D Calcium 8.1 L Phosphorus Magnesium Ferritin Total Bilirubin 0.4 AST 28 ALT 19 D Alkaline Phosphatase 193 H Creatine Kinase 230 Creatine Kinase Index 0.3 CK-MB (CK-2) 0.8 Troponin I Total Protein 6.9 Albumin 2.4 L Vitamin B12 Serum Folate Urine Color Urine Appearance Urine pH Ur Specific [place] Urine Protein Urine Glucose (UA) Urine Ketones Urine Blood Urine Nitrite Urine Bilirubin Urine Urobilinogen Ur Leukocyte Esterase Urine RBC Urine WBC Urine Bacteria Stool Occult Blood Anti-A Titer Blood Type Antibody Screen Crossmatch 11/15/17 11/15/17 11/15/17 12:35 12:35 12:35 WBC RBC Hgb Hct MCV MCH MCHC RDW Plt Count MPV Neutrophils % Lymphocytes % Monocytes % Eosinophils % Basophils % PT with INR INR Sodium Potassium Chloride Carbon Dioxide Anion Gap BUN Creatinine Creat Clearance w eGFR POC Glucometer Random Glucose Calcium Phosphorus Magnesium Ferritin Total Bilirubin AST ALT Alkaline Phosphatase Creatine Kinase Creatine Kinase Index CK-MB (CK-2) Troponin I < 0.03 Total Protein Albumin Vitamin B12 Serum Folate Urine Color Urine Appearance Urine pH Ur Specific [place] Urine Protein Urine Glucose (UA) Urine Ketones Urine Blood Urine Nitrite Urine Bilirubin Urine Urobilinogen Ur Leukocyte Esterase Urine RBC Urine WBC Urine Bacteria Stool Occult Blood Anti-A Titer Cancelled Blood Type A NEGATIVE Cancelled Antibody Screen Negative Cancelled Crossmatch See Detail 11/15/17 11/15/17 11/15/17 12:50 12:55 13:40 WBC RBC Hgb Hct MCV MCH MCHC RDW Plt Count MPV Neutrophils % Lymphocytes % Monocytes % Eosinophils % Basophils % PT with INR INR Sodium Potassium Chloride Carbon Dioxide Anion Gap BUN Creatinine Creat Clearance w eGFR POC Glucometer Random Glucose Calcium Phosphorus Magnesium Ferritin Total Bilirubin AST ALT Alkaline Phosphatase Creatine Kinase Creatine Kinase Index CK-MB (CK-2) Troponin I Total Protein Albumin Vitamin B12 Serum Folate Urine Color Yellow Urine Appearance Clear Urine pH 5.5 Ur Specific [place] 1.020 Urine Protein 1+ H Urine Glucose (UA) Negative Urine Ketones Negative Urine Blood Trace-intact H Urine Nitrite Negative Urine Bilirubin Negative Urine Urobilinogen 0.2 Ur Leukocyte Esterase Negative Urine RBC 2-5 Urine WBC 0-2 Urine Bacteria Few Stool Occult Blood Negative Anti-A Titer Blood Type A NEGATIVE Antibody Screen Crossmatch See Detail 11/15/17 11/15/17 11/15/17 16:00 16:00 17:21 WBC RBC Hgb Hct MCV MCH MCHC RDW Plt Count MPV Neutrophils % Lymphocytes % Monocytes % Eosinophils % Basophils % PT with INR INR Sodium Potassium Chloride Carbon Dioxide Anion Gap BUN Creatinine Creat Clearance w eGFR POC Glucometer 110 Random Glucose Calcium Phosphorus Magnesium Ferritin 269.044 Total Bilirubin AST ALT Alkaline Phosphatase Creatine Kinase Creatine Kinase Index CK-MB (CK-2) Troponin I Total Protein Albumin Vitamin B12 300 Serum Folate 7 Urine Color Urine Appearance Urine pH Ur Specific [place] Urine Protein Urine Glucose (UA) Urine Ketones Urine Blood Urine Nitrite Urine Bilirubin Urine Urobilinogen Ur Leukocyte Esterase Urine RBC Urine WBC Urine Bacteria Stool Occult Blood Anti-A Titer Blood Type Antibody Screen Crossmatch 11/15/17 11/16/17 11/16/17 21:40 00:00 00:06 WBC 7.2 RBC 2.18 L Hgb 6.6 L* D Hct 20.3 L D MCV 93.3 MCH 30.5 MCHC 32.6 RDW 16.4 H Plt Count 246 MPV 8.5 D Neutrophils % 72.7 Lymphocytes % 13.3 D Monocytes % 10.4 H Eosinophils % 2.8 Basophils % 0.8 PT with INR INR Sodium 138 Potassium 5.0 Chloride 106 Carbon Dioxide 25 Anion Gap 7 L BUN 22 H D Creatinine 0.8 Creat Clearance w eGFR POC Glucometer 187 Random Glucose 125 H Calcium 7.5 L Phosphorus Magnesium Ferritin Total Bilirubin AST ALT Alkaline Phosphatase Creatine Kinase Creatine Kinase Index CK-MB (CK-2) Troponin I Total Protein Albumin Vitamin B12 Serum Folate Urine Color Urine Appearance Urine pH Ur Specific [place] Urine Protein Urine Glucose (UA) Urine Ketones Urine Blood Urine Nitrite Urine Bilirubin Urine Urobilinogen Ur Leukocyte Esterase Urine RBC Urine WBC Urine Bacteria Stool Occult Blood Anti-A Titer Blood Type Antibody Screen Crossmatch 11/16/17 11/16/17 11/16/17 05:46 06:51 07:30 WBC 7.1 RBC 2.44 L Hgb 7.5 L Hct 22.3 L MCV 91.4 MCH 30.9 MCHC 33.8 RDW 15.6 Plt Count 278 MPV 7.6 Neutrophils % 76.8 Lymphocytes % 10.1 Monocytes % 9.2 Eosinophils % 3.0 Basophils % 0.9 PT with INR INR Sodium Potassium Chloride Carbon Dioxide Anion Gap BUN Creatinine Creat Clearance w eGFR POC Glucometer 159 Random Glucose Calcium Phosphorus Magnesium Ferritin Total Bilirubin AST ALT Alkaline Phosphatase Creatine Kinase Creatine Kinase Index CK-MB (CK-2) Troponin I Total Protein Albumin Vitamin B12 Serum Folate Urine Color Urine Appearance Urine pH Ur Specific [place] Urine Protein Urine Glucose (UA) Urine Ketones Urine Blood Urine Nitrite Urine Bilirubin Urine Urobilinogen Ur Leukocyte Esterase Urine RBC Urine WBC Urine Bacteria Stool Occult Blood Negative Anti-A Titer Blood Type Antibody Screen Crossmatch 11/16/17 07:30 WBC RBC Hgb Hct MCV MCH MCHC RDW Plt Count MPV Neutrophils % Lymphocytes % Monocytes % Eosinophils % Basophils % PT with INR INR Sodium Potassium Chloride Carbon Dioxide Anion Gap BUN Creatinine Creat Clearance w eGFR POC Glucometer Random Glucose Calcium Phosphorus 2.0 L Magnesium 1.9 Ferritin Total Bilirubin AST ALT Alkaline Phosphatase Creatine Kinase Creatine Kinase Index CK-MB (CK-2) Troponin I Total Protein Albumin Vitamin B12 Serum Folate Urine Color Urine Appearance Urine pH Ur Specific [place] Urine Protein Urine Glucose (UA) Urine Ketones Urine Blood Urine Nitrite Urine Bilirubin Urine Urobilinogen Ur Leukocyte Esterase Urine RBC Urine WBC Urine Bacteria Stool Occult Blood Anti-A Titer Blood Type Antibody Screen Crossmatch HOSPITAL COURSE: Date of Admission:11/15/17 Date of Discharge: 11/16/17 This is an 87 year old male with multiple medical problems including 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 In ER, found to have low H/H of 7/20.5, after receiving two units of blood H/H remained at 7.5/22.3 , transfused one more unit of blood , cassidy well, stool occult negative, B12, Folate and Firritn levels are with in normal limits, no signs of bleeding noted , remains clinically stable. Recommend out patient followup on CBC. * Recently dx left lower extremity cellulitis: It is improving, will continue on out pt antibiotic Augmentin. *HTN: BP stable,not no BP meds presently, cont to monitor *H/o PE: Will continue on Lovenox bid *DM: BS stable, will continue on home dose Janumet and sliding scale * Hx of Prostate CA with bone mets: Will cont xgeva as outpatient and hem/onc followup. * Chronic pain: Will cont lidocaine and MS ER for pain and bowel regimen Minutes to complete discharge: 40 Discharge Summary Reason For Visit: BLOOD TRANSFUSION Current Active Problems Anemia (Acute) Condition: Stable - Instructions Diet, Activity, Other Instructions: Consistent, heart Healthy diet. Fall precautions. Monitor for bleeding Followup on CBC Referrals: Ting Calvert MD [Primary Care Provider] - Disposition: [facility] - Home Medications Comprehensive Discharge Medication List: Ambulatory Orders Aa/Hydrolyzed Collagen, Whey [Lps 15-30 Liquid] 30 ml PO DAILY 11/11/17 Albuterol 2.5/Ipratropium 0.5 [Duoneb -] 1 neb NEB Q6H 11/11/17 Amoxicillin/Potassium Clav [Augmentin 500-125 Tablet] 1 each PO Q8H 11/11/17 Ascorbic Acid [Vitamin C] 500 mg PO DAILY 11/11/17 Aspirin/Dipyridamole [Aggrenox -] 1 combo PO BID 11/11/17 Cholecalciferol (Vitamin D3) [Vitamin D3] 5,000 unit PO DAILY 11/11/17 Denosumab [Xgeva -] 1.7 ml SQ ASDIR 11/11/17 Docusate Sodium [Colace] 300 mg PO HS 11/11/17 Enoxaparin Sodium [Lovenox] 80 mg SQ BID 11/11/17 Guaifenesin [Robitussin -] 10 ml PO Q6H 11/11/17 Lidocaine [Lidocare] 1 each TP DAILY 11/11/17 Morphine Sulfate [Morphine Sulfate ER] 30 mg PO Q12H 11/11/17 Multivitamin [One Daily] 1 each PO DAILY 11/11/17 Naph,Mb-Db/K pH,Mbdb [PHOS-NaK PACKET -] 1 packet PO TID 11/11/17 Pantoprazole Sodium 40 mg PO DAILY 11/11/17 Polyethylene Glycol 3350 [Miralax 119 gm Btl -] 17 gm PO DAILY 11/11/17 Pregabalin [Lyrica -] 150 mg PO Q8H 11/11/17 Sitagliptin Phos/Metformin HCl [Janumet 50-1,000 mg Tablet] 1 each PO BID Venlafaxine HCl ER [Effexor Xr -] 75 mg PO DAILY 11/11/17 Insulin Sliding Scale [Novolog Vial Sliding Scale -] 1 vial SQ TIDAC units 07/24 metFORMIN HCL [Glucophage -] 1,000 mg PO BID@0700,1630 tablet 11/16/17 This patient is new to me today: Yes Date on this admission: 11/16/17 Emergency Visit: Yes ED Registration Date: 11/15/17 Care time: The patient presented to the Emergency Department on the above date and was hospitalized for further evaluation of their emergent condition. Critical Care patient: Yes Total Critical Care Time (in minutes): 40 Critical Care Statement: The care of this patient involved high complexity decision making to prevent further life threatening deterioration of the patient 's condition and/or to evaluate & treat vital organ system(s) failure or risk of failure. - Discharge Referral Referred to [facility] No
--- NOTE | 2017-11-20 13:10 | EKG ---
Test Reason : Blood Pressure : / mmHG Vent. Rate : 068 BPM Atrial Rate : 068 BPM P-R Int : 306 ms QRS Dur : 118 ms QT Int : 406 ms P-R-T Axes : 117 -34 064 degrees QTc Int : 431 ms POOR DATA QUALITY, INTERPRETATION MAY BE ADVERSELY AFFECTED SINUS RHYTHM WITH 1ST DEGREE A-V BLOCK LEFT AXIS DEVIATION LEFT VENTRICULAR HYPERTROPHY WITH QRS WIDENING ABNORMAL ECG WHEN COMPARED WITH ECG OF 22-OCT-2017 08:13, SINUS RHYTHM HAS REPLACED JUNCTIONAL RHYTHM VENT. RATE HAS DECREASED BY 36 BPM Confirmed by KATIE TRAN MD ([id number]) on 11/20/2017 1:10:18 PM Referred By: MARIE Confirmed By:KATIE TRAN MD
== END 2017-11-16 15:00 ==
LOC: FER 11:40 → FM/S 13:54
PROVIDERS: ADMIT Internal Medicine; ATTEND Nurse Practitioner Family
PROC: 30233N1 Transfusion of Nonautologous Red Blood Cells into Peripheral Vein, Percutaneous Approach (ICD-10-PCS; principal; 2017-11-15)
PROC: 3E013VG Introduction of Insulin into Subcutaneous Tissue, Percutaneous Approach (ICD-10-PCS; 2017-11-15)
PROC: 3E013GC Introduction of Other Therapeutic Substance into Subcutaneous Tissue, Percutaneous Approach (ICD-10-PCS; 2017-11-15)
PROC: 3E0F7GC Introduction of Other Therapeutic Substance into Respiratory Tract, Via Natural or Artificial Opening (ICD-10-PCS; 2017-11-15)
DX: D64.9 Anemia, unspecified (principal); I10 Essential (primary) hypertension; I25.10 Atherosclerotic heart disease of native coronary artery without angina pectoris; E11.9 Type 2 diabetes mellitus without complications; I50.9 Heart failure, unspecified; F03.90 Unspecified dementia, unspecified severity, without behavioral disturbance, psychotic disturbance, mood disturbance, and anxiety; C61 Malignant neoplasm of prostate; C79.51 Secondary malignant neoplasm of bone; Z79.4 Long term (current) use of insulin; Z86.711 Personal history of pulmonary embolism; Z79.82 Long term (current) use of aspirin
CPT/HCPCS: 36415; 36430; 71045-TC; 80048; 80053; 81003; 81015; 82272; 82550; 82553; 82607; 82728; 82746; 82962; 83540; 83550; 83735; 84100; 84484; 85025; 85610; 86850; 86900; 86901; 86922; 93005; 94640; 96372; 99283-25; G0378; P9038; P9058

== ENCOUNTER 2018-01-06 12:40 | Observation (INO) | payer OTHER ==
--- NOTE | 2018-01-06 13:10 | PDOC ---
History of Present Illness - General Chief Complaint: Weakness Stated Complaint: WEAKNESS Time Seen by Provider: 01/06/18 12:47 - History of Present Illness Initial Comments: 01/06/18 13:02 87 M with h/o DM, PE on lovenox, Prostate CA with bone mets, HTN, chronic back pain and recurrent SBO, presenting to ED with generalized weakness. Pt is accompanied by family member who reports that pt has been requiring more and more assistance at home with all ADLs. He has fallen on multiple occasions, causing skin tears to his arms and legs. Pt reports feeling weak but denies F/ C. Denies CP/SOB. He was recently admitted for anemia requiring transfusion. Pt denies any dark tarry stools or bloody stools. Denies headstrike/LOC recently but states that he fell a few days ago going to the bathroom. Pt was in Dr. Becerra's office today and was sent in for admission for failure to thrive. Past History - Past Medical History Allergies/Adverse Reactions: Allergies Allergy/AdvReac Type Severity Reaction Status Date / Time No Known Drug Allergies Allergy Verified 01/06/18 12:43 Home Medications: Ambulatory Orders Albuterol 2.5/Ipratropium 0.5 [Duoneb -] 1 neb NEB Q6H 11/11/17 Aspirin/Dipyridamole [Aggrenox -] 1 combo PO BID 11/11/17 Cholecalciferol (Vitamin D3) [Vitamin D3] 5,000 unit PO DAILY 11/11/17 Denosumab [Xgeva -] 1.7 ml SQ ASDIR 11/11/17 Docusate Sodium [Colace] 300 mg PO HS 11/11/17 Enoxaparin Sodium [Lovenox] 80 mg SQ BID 11/11/17 Guaifenesin [Robitussin -] 10 ml PO Q6H 11/11/17 Lidocaine [Lidocare] 1 each TP DAILY 11/11/17 Morphine Sulfate [Morphine Sulfate ER] 60 mg PO Q12H 11/11/17 Multivitamin [One Daily] 1 each PO DAILY 11/11/17 Naph,Mb-Db/K pH,Mbdb [PHOS-NaK PACKET -] 1 packet PO TID 11/11/17 Pantoprazole Sodium 40 mg PO DAILY 11/11/17 Polyethylene Glycol 3350 [Miralax 119 gm Btl -] 17 gm PO DAILY 11/11/17 Pregabalin [Lyrica -] 150 mg PO Q8H 11/11/17 Sitagliptin Phos/Metformin HCl [Janumet 50-1,000 mg Tablet] 1 each PO BID Venlafaxine HCl ER [Effexor Xr -] 75 mg PO DAILY 11/11/17 Insulin Sliding Scale [Novolog Vial Sliding Scale -] 1 vial SQ TIDAC units 07/24 Celecoxib [Celebrex] 100 mg PO DAILY 01/06/18 Insulin Glargine,Hum.rec.anlog [Lantus] 16 unit SQ AM 01/06/18 Psyllium Husk [Fiber] 1 cap PO DAILY 01/06/18 Anemia: No Asthma: No Cancer: (PROSTATE WITH METS TO SPINE) Cardiac Disorders: No CVA: No COPD: Yes (PE many years ago) CHF: No Dementia: No Diabetes: Yes (TYPE I) GI Disorders: No Disorders: No HTN: No Hypercholesterolemia: No Liver Disease: No Psychiatric Problems: Yes (ANXIETY) Seizures: No Thyroid Disease: No - Surgical History Abdominal Surgery: Yes (ABD ADHESIONS) Appendectomy: Yes Cardiac Surgery: No Cholecystectomy: No Lung Surgery: No Neurologic Surgery: No Orthopedic Surgery: Yes (SEVERAL BACK SXS, LAST 03/2016) - Suicide/Smoking/Psychosocial Hx Smoking Status: No Smoking History: Never smoked Have you smoked in the past 12 months: No Number of Cigarettes Smoked Daily: 0 If you are a former smoker, when did you quit?: 1985 Cigars Per Day: 0 Hx Alcohol Use: No Drug/Substance Use Hx: No Substance Use Type: None Hx Substance Use Treatment: No Review of Systems - Review of Systems Comments:: 01/06/18 13:04 "GENERAL/CONSTITUTIONAL: +weakness, No fever or chills. HEAD, EYES, EARS, NOSE AND THROAT: No change in vision. No ear pain or discharge. No sore throat. CARDIOVASCULAR: No chest pain or shortness of breath. RESPIRATORY: No cough, wheezing, or hemoptysis. GASTROINTESTINAL: No nausea, vomiting, diarrhea or constipation. GENITOURINARY: No dysuria, frequency, or change in urination. MUSCULOSKELETAL: No joint or muscle swelling or pain. No neck or back pain. SKIN: No rash NEUROLOGIC: No headache, vertigo, loss of consciousness, or change in strength/ sensation. ENDOCRINE: No increased thirst. No abnormal weight change. HEMATOLOGIC/LYMPHATIC: No anemia, easy bleeding, or history of blood clots. ALLERGIC/IMMUNOLOGIC: No hives or skin allergy. *Physical Exam - Physical Exam Comments: 01/06/18 13:04 "GENERAL: Awake, alert, and fully oriented, in no acute distress HEAD: No signs of trauma EYES: PERRLA, EOMI, sclera anicteric, conjunctiva clear ENT: Auricles normal inspection, hearing grossly normal, nares patent, oropharynx clear without exudates. Moist mucosa NECK: Nontender, no stepoffs, Normal ROM, supple, no lymphadenopathy, JVD, or masses LUNGS: Breath sounds equal, clear to auscultation bilaterally. No wheezes, and no crackles HEART: Regular rate and rhythm, normal S1 and S2, no murmurs, rubs or gallops ABDOMEN: Soft, nontender, normoactive bowel sounds. No guarding, no rebound. No masses EXTREMITIES: + RLE and LUE wrapped in gauze dressing, no bony deformity or tenderness NEUROLOGICAL: Cranial nerves II through XII intact. 5/5 strength and sensation in all extremities, Normal speech, normal gait, normal cerebellar function SKIN: + pallor, no cyanosis " ED Treatment Course - LABORATORY CBC & Chemistry Diagram: 01/06/18 13:30 01/06/18 14:25 - RADIOLOGY Radiology Studies Ordered: Category Date Time Status HEAD CT WITHOUT CONTRAST [CT] Stat CT Scan 01/06/18 12:59 Ordered CHEST X-RAY PORTABLE* [RAD] Stat Radiology 01/06/18 12:58 Ordered Medical Decision Making - Medical Decision Making 01/06/18 13:06 87 M with generalized weakness, recurrent falls. Sent in by Dr. Becerra for FTT. Pt appears pale on exam, possibly suggesting recurrent anemia. Will also work up for infectious process with CXR and UA. R/o cardiac pathology with EKG, trop. - Labs, trop - CXR, UA - CT head for recent fall on AC - Admit *DC/Admit/Observation/Transfer Diagnosis at time of Disposition: FTT (failure to thrive) in adult - Discharge Dispostion Condition at time of disposition: Stable Admit: Yes - Referrals Referrals: Rey Becerra MD [Primary Care Provider] - - Patient Instructions - Post Discharge Activity - Attestations Physician Attestion: 01/06/18 15:36 I, Dr. Mejia Solano MD, attest that this document has been prepared under my direction and personally reviewed by me in its entirety. I further attest, that it accurately reflects all work, treatment, procedures and medical decision -making performed by me.
[2018-01-06 14:06] LABS: BASO % 0.7 % (0-2.0); EOS % 2.2 % (0-4.5); HEMATOCRIT 22.2 % (35.4-49); HEMOGLOBIN 7.4 GM/dl (11.7-16.9); MCHC 33.2 g/dl (32.0-35.9); MEAN CELL VOLUME 93.4 fl (80-96); MEAN PLT VOLUME 7.8 fl (7.5-11.1); NEUT % 72.1 % (42.8-82.8); PLATELET COUNT 306 K/MM3 (134-434); RBC 2.38 M/mm3 (4.00-5.60); RDW 18.4 % (11.9-15.9); WHITE BLOOD COUNT 7.9 K/mm3 (4.0-10.8)
[2018-01-06 15:07] LABS: ALBUMIN 2.3 g/dl (3.5-5.0); ALK PHOS 112 U/L (32-92); ANION GAP 7 (8-16); BLOOD UREA NITROGEN 20 mg/dl (7-18); CHLORIDE 103 mmol/L (98-107); CO2 23 mmol/L (22-28); GLUCOSE,RANDOM 177 mg/dl (74-106); POTASSIUM 5.2 mmol/L (3.5-5.1); SGOT/AST 24 U/L (10-42); SGPT/ALT 13 U/L (10-40); SODIUM 133 mmol/L (136-145); TOT PROT 6.5 g/dl (6.4-8.3)
[2018-01-06 15:10] LABS: ACTIVATED PTT 33.5 SECONDS (24.0-38.9)
[2018-01-06 15:14] LABS: INR 1.2 (0.82-1.09); PROTHROMBIN TIME (PATIENT) 13.4 SEC (10.2-13.0)
[2018-01-06 15:22] LABS: BILIRUBIN,TOTAL < 0.5 mg/dl (0.2-1.0)
[2018-01-06] MEDS ORDERED: SODIUM CHLORIDE 500 ML IV STA (15:34)
[2018-01-06 16:46] LABS: PH,URINE 5.5 (4.5-8); URINE APPEARANCE Clear; URINE BILIRUBIN Negative (NEGATIVE); URINE BLOOD Negative (NEGATIVE); URINE COLOR YELLOW; URINE GLUCOSE (UA) Negative (NEGATIVE); URINE KETONE Negative (NEGATIVE); URINE LEUK ESTERASE Negative (NEGATIVE); URINE NITRITE Negative (NEGATIVE); URINE PROTEIN 2+ (NEGATIVE); URINE UROBILINOGEN 0.2 (0.2-1.0)
[2018-01-06 17:01] LABS: N-TERMINAL BNP 8092.04 pg/ml (5-450)
[2018-01-06 18:48] VITALS: BMI 21.7
--- NOTE | 2018-01-06 21:23 | HP ---
Admitting History and Physical - Primary Care Physician PCP: Rey Becerra - Admission Chief Complaint: Weakness History of Present Illness: This is a 87 y/o man with a PMH of Prostate Ca with Bone mets History Source: Patient Limitations to Obtaining History: No Limitations - Past Medical History Cardiovascular: Yes: CAD, HTN Pulmonary: Yes: Pulmonary Embolus (25 years ago) Gastrointestinal: Yes: GERD, Other (recurring SBO) Renal/: Yes: Cancer Heme/Onc: Yes: Anemia, Cancer (mets to bone) Musculoskeletal: Yes: Chronic low back pain - Smoking History Smoking history: Former smoker Have you smoked in the past 12 months: No Aproximately how many cigarettes per day: 0 If you are a former smoker, when did you quit?: 1984 - Alcohol/Substance Use Hx Alcohol Use: No History of Substance Use: reports: None - Social History Usual Living Arrangement: Yes: With Spouse ADL: Independent History of Recent Travel: No Home Medications - Allergies Allergies/Adverse Reactions: Allergies Allergy/AdvReac Type Severity Reaction Status Date / Time No Known Drug Allergies Allergy Verified 01/06/18 12:43 - Home Medications Home Medications: Ambulatory Orders Aspirin/Dipyridamole [Aggrenox -] 1 combo PO BID 11/11/17 Cholecalciferol (Vitamin D3) [Vitamin D3] 5,000 unit PO DAILY 11/11/17 Denosumab [Xgeva -] 1.7 ml SQ MONTHLY 11/11/17 Docusate Sodium [Colace] 300 mg PO HS 11/11/17 Enoxaparin Sodium [Lovenox] 80 mg SQ BID 11/11/17 Morphine Sulfate [Morphine Sulfate ER] 60 mg PO Q12H 11/11/17 Multivitamin [One Daily] 1 each PO DAILY 11/11/17 Naph,Mb-Db/K pH,Mbdb [PHOS-NaK PACKET -] 1 packet PO TID 11/11/17 Pantoprazole Sodium 40 mg PO DAILY 11/11/17 Polyethylene Glycol 3350 [Miralax 119 gm Btl -] 17 gm PO DAILY 11/11/17 Pregabalin [Lyrica -] 150 mg PO Q8H 11/11/17 Sitagliptin Phos/Metformin HCl [Janumet 50-1,000 mg Tablet] 1 each PO BID Venlafaxine HCl ER [Effexor Xr -] 100 mg PO DAILY 11/11/17 Insulin Glargine,Hum.rec.anlog [Lantus] 12 unit SQ AM 01/06/18 Family Disease History - Family Disease History Family History: Unable to Obtain Review of Systems - Review of Systems Constitutional: reports: Loss of Appetite, Malaise Eyes: reports: No Symptoms HENT: reports: No Symptoms Neck: reports: No Symptoms Cardiovascular: reports: No Symptoms Respiratory: reports: No Symptoms Gastrointestinal: reports: No Symptoms Genitourinary: reports: No Symptoms Breasts: reports: No Symptoms Reported Musculoskeletal: reports: No Symptoms Integumentary: reports: Other (pressure ulcer to R-lower back) Physical Examination Vital Signs: Vital Signs Temperature 97.6 F 01/06/18 18:28 Pulse Rate 79 01/06/18 18:28 Respiratory Rate 18 01/06/18 20:44 Blood Pressure 110/58 01/06/18 18:28 O2 Sat by Pulse Oximetry (%) 96 01/06/18 16:00 Constitutional: Yes: No Distress, Calm, Thin Eyes: Yes: WNL, Conjunctiva Clear, EOM Intact, PERRL HENT: Yes: WNL, Atraumatic Neck: Yes: WNL, Supple, Trachea Midline, Lymphadenopathy Cardiovascular: Yes: Regular Rate and Rhythm, S1, S2 Respiratory: Yes: WNL, Regular Gastrointestinal: Yes: Normal Bowel Sounds, Soft ...Rectal Exam: Yes: Deferred Renal/: Yes: WNL Breast(s): Yes: WNL Musculoskeletal: Yes: Muscle Weakness Extremities: Yes: WNL Edema: No Peripheral Pulses WNL: Yes Integumentary: Yes: Pressure Ulcer (3 X2.5cm erythema, yellow-white slough, yellow discharge to telfa dressing) Wound/Incision: Yes: Dressing Removed, Reddened Neurological: Yes: Alert, Confusion ...Motor Strength: LUE (5/5), LLE (4/5), RUE (5/5), RLE (4/5) Psychiatric: Yes: Alert, Oriented (with some confusion-place and time) Labs: CBC, BMP 01/06/18 13:30 01/06/18 14:25 Intake & Output 01/04/18 01/05/18 01/06/18 01/07/18 23:59 23:59 23:59 23:59 Intake Total 300 450 Output Total 200 400 Balance 100 50 Weight 72.575 kg Vital Signs (72 hours) 01/06/18 01/06/18 01/06/18 12:40 16:00 18:28 Temperature 97.8 F 98.1 F 97.6 F Pulse Rate 81 79 Pulse Rate [ 79 Left Apical] Respiratory 18 16 18 Rate Blood Pressure 116/46 110/58 Blood Pressure 110/58 [Right Arm] O2 Sat by Pulse 100 96 Oximetry (%) 01/06/18 01/06/18 01/07/18 20:44 21:45 06:50 Temperature 99.0 F 97.7 F Pulse Rate 68 84 Pulse Rate [ Left Apical] Respiratory 18 16 17 Rate Blood Pressure 128/46 116/37 Blood Pressure [Right Arm] O2 Sat by Pulse 95 97 Oximetry (%) 01/07/18 08:34 Temperature Pulse Rate Pulse Rate [ Left Apical] Respiratory 17 Rate Blood Pressure Blood Pressure [Right Arm] O2 Sat by Pulse 97 Oximetry (%) Current Medications Generic Name Dose Route Start Last Admin Trade Name Freq PRN Reason Stop Dose Admin Cholecalciferol 5,000 unit 01/07/18 10:00 01/07/18 10:02 Vitamin D3 - PO 5,000 unit DAILY MANNY Administration Docusate Sodium 300 mg 01/07/18 22:00 Colace - PO HS MANNY Enoxaparin Sodium 80 mg 01/07/18 10:00 01/07/18 10:02 Lovenox - SQ 80 mg BID MANNY Administration Insulin Detemir 12 units 01/08/18 07:00 Levemir Vial SQ AM MANNY Morphine Sulfate 60 mg 01/07/18 09:00 01/07/18 09:00 Ms Contin - PO 60 mg Q12H MANNY Administration Multivitamins/Minerals/Vitamin C 1 tab 01/07/18 10:00 01/07/18 10:02 Tab-A-Vit - PO 1 tab DAILY MANNY Administration Nystatin 1 applic 01/07/18 10:00 01/07/18 11:03 Nystop Powder - TP 1 applic DAILY MANNY Administration Pantoprazole Sodium 40 mg 01/07/18 10:00 01/07/18 10:01 Protonix - PO 40 mg DAILY MANNY Administration Polyethylene Glycol 17 gm 01/07/18 10:00 01/07/18 11:00 Miralax (For Daily Use) - PO 17 gm DAILY MANNY Administration Potassium Phos/Sodium Phos 1 packet 01/07/18 14:00 Phos-Nak Packet - PO TID MANNY Pregabalin 150 mg 01/07/18 09:00 01/07/18 09:00 Lyrica - PO 150 mg Q8H MANNY Administration Venlafaxine HCl 75 mg 01/07/18 10:00 01/07/18 10:59 Effexor Xr - PO 75 mg DAILY MANNY Administration Imaging - Results Chest X-ray: Image Reviewed Cat Scan: Image Reviewed Problem List - Problems (1) Weakness Code(s): R53.1 - WEAKNESS (2) FTT (failure to thrive) in adult Code(s): R62.7 - ADULT FAILURE TO THRIVE (3) SBO (small bowel obstruction) Code(s): K56.69 - OTHER INTESTINAL OBSTRUCTION * DO NOT USE * (4) Suspected pulmonary embolism Code(s): I26.99 - OTHER PULMONARY EMBOLISM WITHOUT ACUTE COR PULMONALE (5) CAD (coronary artery disease) Code(s): I25.10 - ATHSCL HEART DISEASE OF [place] CORONARY ARTERY W/O ANG PCTRS Visit type - Emergency Visit Emergency Visit: Yes ED Registration Date: 01/06/18 Care time: The patient presented to the Emergency Department on the above date and was hospitalized for further evaluation of their emergent condition. - New Patient This patient is new to me today: Yes Date on this admission: 01/06/18 Hospitalist Screening - Colonoscopy Questionnaire Colonoscopy Questionnaire: Colonoscopy Questionnaire - Patient: 50 - 75 years old and never had a screening colonoscopy: No History of colon or rectal polyps, or CA: Yes History of IBD, Crohn's disease or UC: No History of abdominal radiation therapy as a child: No - Relative: 1 with colon or rectal CA, or polyps at age 60 or younger: No Colon or rectal CA diagnosed at age 45 or younger: No Multiple relatives with colon or rectal CA: No - Outcome: Screening Result: Positive Screen
[2018-01-06 22:11] LABS: URINE BACTERIA FEW /hpf (NEGATIVE); URINE RBC 0-1 /hpf (0-3); URINE WBC 0-2 (0-2)
--- NOTE | 2018-01-07 08:33 | PN ---
Physical Exam: SUBJECTIVE: Patient seen and examined OBJECTIVE: Vital Signs Period Temp Pulse Resp BP Sys/Kim Pulse Ox Last 24 Hr 97.6 F-99.0 F 68-84 16-18 110-128/37-58 95-100 GENERAL: The patient is awake, alert, and fully oriented, in no acute distress. HEAD: Normal with no signs of trauma. EYES: PERRL, extraocular movements intact, sclera anicteric, conjunctiva clear. No ptosis. ENT: Ears normal, nares patent, oropharynx clear without exudates, moist mucous membranes. NECK: Trachea midline, full range of motion, supple. LUNGS: Breath sounds equal, clear to auscultation bilaterally, no wheezes, no crackles, no accessory muscle use. HEART: Regular rate and rhythm, S1, S2 without murmur, rub or gallop. ABDOMEN: Soft, nontender, nondistended, normoactive bowel sounds, no guarding, no rebound, no hepatosplenomegaly, no masses. EXTREMITIES: 2+ pulses, warm, well-perfused, no edema. NEUROLOGICAL: Cranial nerves II through XII grossly intact. Normal speech, gait not observed. PSYCH: Normal mood, normal affect. SKIN: Warm, dry, normal turgor, no rashes or lesions noted Laboratory Results - last 24 hr CBC WBC 7.2 K/mm3 (4.0-10.8) 01/07/18 09:30 RBC 2.60 M/mm3 (4.00-5.60) L 01/07/18 09:30 Hgb 7.9 GM/dl (11.7-16.9) L 01/07/18 09:30 Hct 24.4 % (35.4-49) L 01/07/18 09:30 MCV 93.5 fl (80-96) 01/07/18 09:30 MCH 30.4 pg (25.7-33.7) 01/07/18 09:30 MCHC 32.5 g/dl (32.0-35.9) 01/07/18 09:30 RDW 17.6 % (11.9-15.9) H 01/07/18 09:30 Plt Count 315 K/MM3 (134-434) 01/07/18 09:30 MPV 7.3 fl (7.5-11.1) L 01/07/18 09:30 Neutrophils % 77.9 % (42.8-82.8) 01/07/18 09:30 Lymphocytes % 8.6 % (8-40) D 01/07/18 09:30 Monocytes % 11.0 % (3.8-10.2) H 01/07/18 09:30 Eosinophils % 2.0 % (0-4.5) 01/07/18 09:30 Basophils % 0.5 % (0-2.0) 01/07/18 09:30 CMP Sodium 132 mmol/L (136-145) L 01/07/18 09:30 Potassium 5.1 mmol/L (3.5-5.1) 01/07/18 09:30 Chloride 104 mmol/L (98-107) 01/07/18 09:30 Carbon Dioxide 23 mmol/L (22-28) 01/07/18 09:30 Anion Gap 5 (8-16) L 01/07/18 09:30 BUN 19 mg/dl (7-18) H 01/07/18 09:30 Creatinine 0.9 mg/dl (0.6-1.3) 01/07/18 09:30 Creat Clearance w eGFR > 60 (>60) 01/07/18 09:30 Random Glucose 212 mg/dl (74-106) H 01/07/18 09:30 Lactic Acid 2.6 mmol/L (0.0-2.0) H* 01/06/18 23:50 Calcium 7.8 mg/dl (8.4-10.2) L 01/07/18 09:30 Total Bilirubin 0.4 mg/dl (0.2-1.0) 01/07/18 09:30 AST 21 U/L (10-42) 01/07/18 09:30 ALT 13 U/L (10-40) 01/07/18 09:30 Alkaline Phosphatase 121 U/L (32-92) H 01/07/18 09:30 Creatine Kinase 23 IU/L (39-308) L 01/06/18 14:25 Troponin I < 0.02 ng/ml (0.00-0.05) 01/06/18 23:50 B-Natriuretic Peptide 8092.04 pg/ml (5-450) H 04/02/18 14:25 Total Protein 6.5 g/dl (6.4-8.3) 01/07/18 09:30 Albumin 2.2 g/dl (3.5-5.0) L 01/07/18 09:30 TSH 1.94 uIU/ml (0.358-3.74) D 01/06/18 14:25 Active Medications Generic Name Dose Route Start Last Admin Trade Name Sujey PRN Reason Stop Dose Admin Cholecalciferol 5,000 unit 01/07/18 10:00 01/07/18 10:02 Vitamin D3 - PO 5,000 unit DAILY MANNY Administration Docusate Sodium 300 mg 01/07/18 22:00 Colace - PO HS MANNY Enoxaparin Sodium 80 mg 01/07/18 10:00 01/07/18 10:02 Lovenox - SQ 80 mg BID MANNY Administration Insulin Detemir 12 units 01/08/18 07:00 Levemir Vial SQ AM MANNY Morphine Sulfate 60 mg 01/07/18 09:00 01/07/18 09:00 Ms Contin - PO 60 mg Q12H MANNY Administration Multivitamins/Minerals/Vitamin C 1 tab 01/07/18 10:00 01/07/18 10:02 Tab-A-Vit - PO 1 tab DAILY MANNY Administration Nystatin 1 applic 01/07/18 10:00 01/07/18 11:03 Nystop Powder - TP 1 applic DAILY MANNY Administration Pantoprazole Sodium 40 mg 01/07/18 10:00 01/07/18 10:01 Protonix - PO 40 mg DAILY MANNY Administration Polyethylene Glycol 17 gm 01/07/18 10:00 01/07/18 11:00 Miralax (For Daily Use) - PO 17 gm DAILY MANNY Administration Potassium Phos/Sodium Phos 1 packet 01/07/18 14:00 Phos-Nak Packet - PO TID MANNY Pregabalin 150 mg 01/07/18 09:00 01/07/18 09:00 Lyrica - PO 150 mg Q8H MANNY Administration Venlafaxine HCl 75 mg 01/07/18 10:00 01/07/18 10:59 Effexor Xr - PO 75 mg DAILY MANNY Administration ASSESSMENT/PLAN:
[2018-01-07] MEDS: PREGABALIN 50 MG CAPSULE PO SCH ×2 (09:00→21:39)
[2018-01-07] MEDS: morphine SO4 SUSTAINED ACTING 30 MG TABLET.SA PO SCH ×2 (09:00→21:26)
[2018-01-07] MEDS ORDERED: VENLAFAXINE HCL 75 MG E.R. CAPSULES (FP) PO SCH (10:00)
[2018-01-07] MEDS: PANTOPRAZOLE 40 MG TABLET (FP) PO SCH (10:01)
[2018-01-07] MEDS: CHOLECALCIFEROL (VITAMIN D3) 1,000 UNIT TABLET (FP) PO SCH (10:02)
[2018-01-07] MEDS: MULTIVITAMINS (DAILY MVI) TABLET (FP) PO SCH (10:02)
[2018-01-07] MEDS: ENOXAPARIN NA (PORCINE) 80 MG/0.8 ML DISP.SYRIN SQ SCH ×2 (10:02→21:26)
[2018-01-07] MEDS ORDERED: PT OWN MED DRAWER 7, Y5N ONE ×2 (10:23→21:34)
[2018-01-07] MEDS: VENLAFAXINE HCL 75 MG E.R. CAPSULES (FP) PO SCH (10:59)
[2018-01-07] MEDS: POLYETHYLENE GLYCOL 3350 119 GM BTL PO SCH (11:00)
[2018-01-07 11:01] LABS: ALBUMIN 2.2 g/dl (3.5-5.0); ALK PHOS 121 U/L (32-92); ANION GAP 5 (8-16); BILIRUBIN,TOTAL 0.4 mg/dl (0.2-1.0); BLOOD UREA NITROGEN 19 mg/dl (7-18); CALCIUM 7.8 mg/dl (8.4-10.2); CHLORIDE 104 mmol/L (98-107); CO2 23 mmol/L (22-28); CREATININE 0.9 mg/dl (0.6-1.3); GLUCOSE,RANDOM 212 mg/dl (74-106); POTASSIUM 5.1 mmol/L (3.5-5.1); SGOT/AST 21 U/L (10-42); SGPT/ALT 13 U/L (10-40); SODIUM 132 mmol/L (136-145); TOT PROT 6.5 g/dl (6.4-8.3)
[2018-01-07] MEDS: NYSTATIN POWDER 100,000 UNITS/GM - 15 GM TOPICAL POWDER TP SCH (11:03)
[2018-01-07 12:03] LABS: BASO % 0.5 % (0-2.0); HEMATOCRIT 24.4 % (35.4-49); HEMOGLOBIN 7.9 GM/dl (11.7-16.9); LYMPH % 8.6 % (8-40); MCH 30.4 pg (25.7-33.7); MCHC 32.5 g/dl (32.0-35.9); MEAN CELL VOLUME 93.5 fl (80-96); MEAN PLT VOLUME 7.3 fl (7.5-11.1); NEUT % 77.9 % (42.8-82.8); PLATELET COUNT 315 K/MM3 (134-434); RDW 17.6 % (11.9-15.9); WHITE BLOOD COUNT 7.2 K/mm3 (4.0-10.8)
[2018-01-07] MEDS ORDERED: FUROSEMIDE 40 MG/4 ML INJECTABLE VIAL IVPUSH ONE ×2 (12:45→15:30)
[2018-01-07] MEDS: NAPH,MB-DB/K PH,MBDB POWDER PACKET PO SCH ×2 (14:00→21:51)
--- NOTE | 2018-01-07 14:08 | PN ---
Physical Exam: SUBJECTIVE: Patient seen and examined, sitting up in bedside chair, eating breakfast, reports feeling tired, at bedside. OBJECTIVE: patient is a 87 y/o male with a past medical history of metastic prostate CA, PE (lovenox), DM, GERD, HTN, carotid stenosis, and anemia. Patient was admitted from the emergency department to observation for symptomatic anemia. Vital Signs Period Temp Pulse Resp BP Sys/Kim Pulse Ox Last 24 Hr 97.6 F-99.0 F 68-84 16-18 110-128/37-58 95-97 GENERAL: thin, The patient is awake, alert, and fully oriented, in no acute distress. HEAD: Normal with no signs of trauma. EYES: PERRL, extraocular movements intact, sclera paleanicteric, conjunctiva clear. No ptosis. ENT: Ears normal, nares patent, oropharynx clear without exudates, moist mucous membranes. NECK: Trachea midline, full range of motion, supple. LUNGS: Breath sounds equal, clear to auscultation bilaterally, no wheezes, no crackles, no accessory muscle use. HEART: Regular rate and rhythm, S1, S2 without murmur, rub or gallop. ABDOMEN: Soft, nontender, nondistended, normoactive bowel sounds, no guarding, no rebound, no hepatosplenomegaly, no masses. EXTREMITIES: right distal upper extremity, several skin tears, no bleeding noted , 2+ pulses, warm, well-perfused, no edema. NEUROLOGICAL: Cranial nerves II through XII grossly intact. Normal speech, gait not observed. PSYCH: Normal mood, normal affect. SKIN: Warm, dry, normal turgor, stage II medial back Laboratory Results - last 24 hr 01/06/18 01/06/18 01/06/18 13:30 13:30 13:30 WBC 7.9 RBC 2.38 L Hgb 7.4 L D Hct 22.2 L MCV 93.4 MCH 31.0 MCHC 33.2 RDW 18.4 H Plt Count 306 MPV 7.8 Neutrophils % 72.1 Lymphocytes % 12.0 Monocytes % 13.0 H Eosinophils % 2.2 Basophils % 0.7 PT with INR INR PTT (Actin FS) Sodium Cancelled Potassium Cancelled Chloride Cancelled Carbon Dioxide Cancelled Anion Gap Cancelled BUN Cancelled Creatinine Cancelled Creat Clearance w eGFR Cancelled Random Glucose Cancelled Lactic Acid Calcium Cancelled Total Bilirubin Cancelled AST Cancelled ALT Cancelled Alkaline Phosphatase Cancelled Creatine Kinase Cancelled Troponin I Cancelled B-Natriuretic Peptide Total Protein Cancelled Albumin Cancelled TSH Cancelled Urine Color Urine Appearance Urine pH Ur Specific [place] Urine Protein Urine Glucose (UA) Urine Ketones Urine Blood Urine Nitrite Urine Bilirubin Urine Urobilinogen Ur Leukocyte Esterase Urine RBC Urine WBC Urine Bacteria Blood Type Antibody Screen Crossmatch 01/06/18 01/06/18 01/06/18 13:30 13:30 13:30 WBC RBC Hgb Hct MCV MCH MCHC RDW Plt Count MPV Neutrophils % Lymphocytes % Monocytes % Eosinophils % Basophils % PT with INR Cancelled INR Cancelled PTT (Actin FS) Cancelled Sodium Potassium Chloride Carbon Dioxide Anion Gap BUN Creatinine Creat Clearance w eGFR Random Glucose Lactic Acid 2.7 H* Calcium Total Bilirubin AST ALT Alkaline Phosphatase Creatine Kinase Troponin I B-Natriuretic Peptide Cancelled Total Protein Albumin TSH Cancelled Urine Color Urine Appearance Urine pH Ur Specific [place] Urine Protein Urine Glucose (UA) Urine Ketones Urine Blood Urine Nitrite Urine Bilirubin Urine Urobilinogen Ur Leukocyte Esterase Urine RBC Urine WBC Urine Bacteria Blood Type Antibody Screen Crossmatch 01/06/18 01/06/18 01/06/18 13:30 14:25 14:25 WBC RBC Hgb Hct MCV MCH MCHC RDW Plt Count MPV Neutrophils % Lymphocytes % Monocytes % Eosinophils % Basophils % PT with INR 13.4 H INR 1.20 PTT (Actin FS) 33.5 Sodium 133 L Potassium 5.2 H Chloride 103 Carbon Dioxide 23 Anion Gap 7 L BUN 20 H Creatinine 1.0 Creat Clearance w eGFR > 60 Random Glucose 177 H D Lactic Acid Calcium 8.0 L Total Bilirubin < 0.5 AST 24 ALT 13 Alkaline Phosphatase 112 H Creatine Kinase 23 L Troponin I B-Natriuretic Peptide Total Protein 6.5 Albumin 2.3 L TSH Cancelled Urine Color Urine Appearance Urine pH Ur Specific [place] Urine Protein Urine Glucose (UA) Urine Ketones Urine Blood Urine Nitrite Urine Bilirubin Urine Urobilinogen Ur Leukocyte Esterase Urine RBC Urine WBC Urine Bacteria Blood Type Cancelled Antibody Screen Cancelled Crossmatch 01/06/18 01/06/18 01/06/18 14:25 14:25 14:25 WBC RBC Hgb Hct MCV MCH MCHC RDW Plt Count MPV Neutrophils % Lymphocytes % Monocytes % Eosinophils % Basophils % PT with INR INR PTT (Actin FS) Sodium Potassium Chloride Carbon Dioxide Anion Gap BUN Creatinine Creat Clearance w eGFR Random Glucose Lactic Acid Calcium Total Bilirubin AST ALT Alkaline Phosphatase Creatine Kinase Troponin I < 0.03 B-Natriuretic Peptide 8092.04 H Total Protein Albumin TSH 1.94 D Urine Color Urine Appearance Urine pH Ur Specific [place] Urine Protein Urine Glucose (UA) Urine Ketones Urine Blood Urine Nitrite Urine Bilirubin Urine Urobilinogen Ur Leukocyte Esterase Urine RBC Urine WBC Urine Bacteria Blood Type A NEGATIVE Antibody Screen Negative Crossmatch See Detail 01/06/18 01/06/18 01/06/18 15:25 23:50 23:50 WBC RBC Hgb Hct MCV MCH MCHC RDW Plt Count MPV Neutrophils % Lymphocytes % Monocytes % Eosinophils % Basophils % PT with INR INR PTT (Actin FS) Sodium Potassium Chloride Carbon Dioxide Anion Gap BUN Creatinine Creat Clearance w eGFR Random Glucose Lactic Acid 2.6 H* Calcium Total Bilirubin AST ALT Alkaline Phosphatase Creatine Kinase Troponin I < 0.02 B-Natriuretic Peptide Total Protein Albumin TSH Urine Color Yellow Urine Appearance Clear Urine pH 5.5 Ur Specific [place] 1.015 Urine Protein 2+ H Urine Glucose (UA) Negative Urine Ketones Negative Urine Blood Negative Urine Nitrite Negative Urine Bilirubin Negative Urine Urobilinogen 0.2 Ur Leukocyte Esterase Negative Urine RBC 0-1 Urine WBC 0-2 Urine Bacteria Few Blood Type Antibody Screen Crossmatch 01/07/18 01/07/18 09:30 09:30 WBC 7.2 RBC 2.60 L Hgb 7.9 L Hct 24.4 L MCV 93.5 MCH 30.4 MCHC 32.5 RDW 17.6 H Plt Count 315 MPV 7.3 L Neutrophils % 77.9 Lymphocytes % 8.6 D Monocytes % 11.0 H Eosinophils % 2.0 Basophils % 0.5 PT with INR INR PTT (Actin FS) Sodium 132 L Potassium 5.1 Chloride 104 Carbon Dioxide 23 Anion Gap 5 L BUN 19 H Creatinine 0.9 Creat Clearance w eGFR > 60 Random Glucose 212 H Lactic Acid Calcium 7.8 L Total Bilirubin 0.4 AST 21 ALT 13 Alkaline Phosphatase 121 H Creatine Kinase Troponin I B-Natriuretic Peptide Total Protein 6.5 Albumin 2.2 L TSH Urine Color Urine Appearance Urine pH Ur Specific [place] Urine Protein Urine Glucose (UA) Urine Ketones Urine Blood Urine Nitrite Urine Bilirubin Urine Urobilinogen Ur Leukocyte Esterase Urine RBC Urine WBC Urine Bacteria Blood Type Antibody Screen Crossmatch Active Medications Generic Name Dose Route Start Last Admin Trade Name Jose Danielq PRN Reason Stop Dose Admin Cholecalciferol 5,000 unit 01/07/18 10:00 01/07/18 10:02 Vitamin D3 - PO 5,000 unit DAILY MANNY Administration Dipyridamole/Aspirin 1 combo 01/07/18 22:00 Aggrenox - PO BID MANNY Docusate Sodium 300 mg 01/07/18 22:00 Colace - PO HS MANNY Enoxaparin Sodium 80 mg 01/07/18 10:00 01/07/18 10:02 Lovenox - SQ 80 mg BID MANNY Administration Insulin Detemir 12 units 01/08/18 07:00 Levemir Vial SQ AM MANNY Morphine Sulfate 60 mg 01/07/18 09:00 01/07/18 09:00 Ms Contin - PO 60 mg Q12H MANNY Administration Multivitamins/Minerals/Vitamin C 1 tab 01/07/18 10:00 01/07/18 10:02 Tab-A-Vit - PO 1 tab DAILY MANNY Administration Nystatin 1 applic 01/07/18 10:00 01/07/18 11:03 Nystop Powder - TP 1 applic DAILY MANNY Administration Pantoprazole Sodium 40 mg 01/07/18 10:00 01/07/18 10:01 Protonix - PO 40 mg DAILY MANNY Administration Polyethylene Glycol 17 gm 01/07/18 10:00 01/07/18 11:00 Miralax (For Daily Use) - PO 17 gm DAILY MANNY Administration Potassium Phos/Sodium Phos 1 packet 01/07/18 14:00 Phos-Nak Packet - PO TID MANNY Pregabalin 150 mg 01/07/18 09:00 01/07/18 09:00 Lyrica - PO 150 mg Q8H MANNY Administration Venlafaxine HCl 75 mg 01/07/18 10:00 01/07/18 10:59 Effexor Xr - PO 75 mg DAILY MANNY Administration ASSESSMENT/PLAN: 1)heme/onc normocyctic anemia - repeat hgb 7.9 after 1 unit of prbc, 2nd unit order, likely anemia of chronic disease prostate CA - continue home dose morphine, followed by Dr Venegas, onc, continue xgva as outpatient lactic acidosis noted secondary to metastic ca 2) pulm hx of PE - continue lovenox home dose 3) cardiovascular hypertension - b/p at goal strict monitoring carotid stenosis - continue agrenox 4) endo dm - fingersticks achs with regular insulin sliding scale 5) psych depression - continue effexor f/e/n - diabetic diet - replete lytes prn ppx - lovenox - protonix - PT - scd dispo: pt requires observation admission Visit type - Emergency Visit Emergency Visit: Yes ED Registration Date: 01/06/18 Care time: The patient presented to the Emergency Department on the above date and was hospitalized for further evaluation of their emergent condition. - New Patient This patient is new to me today: No - Critical Care Critical Care patient: No - Discharge Referral Referred to [facility] No
[2018-01-07 20:46] LABS: BASO % 0.4 % (0-2.0); EOS % 1.6 % (0-4.5); HEMATOCRIT 25.4 % (35.4-49); HEMOGLOBIN 8.2 GM/dl (11.7-16.9); MCH 29.7 pg (25.7-33.7); MCHC 32.4 g/dl (32.0-35.9); MEAN CELL VOLUME 91.7 fl (80-96); MEAN PLT VOLUME 6.6 fl (7.5-11.1); MONO % 12.5 % (3.8-10.2); NEUT % 73.5 % (42.8-82.8); PLATELET COUNT 288 K/MM3 (134-434); RBC 2.77 M/mm3 (4.00-5.60); RDW 18.2 % (11.9-15.9); WHITE BLOOD COUNT 7.3 K/mm3 (4.0-10.8)
[2018-01-07] MEDS: ASPIRIN/DIPYRIDAMOLE 25 MG/200 MG CAPSULE (FP) PO SCH (21:39)
[2018-01-07] MEDS ORDERED: DOCUSATE SODIUM 100 MG CAPSULE (FP) PO SCH (22:00)
[2018-01-08] MEDS: PREGABALIN 50 MG CAPSULE PO SCH ×3 (01:01→14:36)
[2018-01-08] MEDS: NAPH,MB-DB/K PH,MBDB POWDER PACKET PO SCH ×2 (06:23→14:37)
[2018-01-08] MEDS ORDERED: INSULIN GLARGINE HUM REC ANLOG 12 UNIT SQ SCH (07:00)
[2018-01-08] MEDS ORDERED: INSULIN DETEMIR 100 UNITS/ML MDV SQ SCH (07:00)
[2018-01-08] MEDS ORDERED: [UNRECOGNIZED DRUG - OTHER] SQ SCH (07:00)
[2018-01-08] MEDS ORDERED: PT OWN MED DRAWER 7, Y5N ONE (09:13)
[2018-01-08] MEDS: ENOXAPARIN NA (PORCINE) 80 MG/0.8 ML DISP.SYRIN SQ SCH (09:39)
[2018-01-08] MEDS: PANTOPRAZOLE 40 MG TABLET (FP) PO SCH (09:40)
[2018-01-08] MEDS: MULTIVITAMINS (DAILY MVI) TABLET (FP) PO SCH (09:40)
[2018-01-08] MEDS: NYSTATIN POWDER 100,000 UNITS/GM - 15 GM TOPICAL POWDER TP SCH (09:40)
[2018-01-08] MEDS: morphine SO4 SUSTAINED ACTING 30 MG TABLET.SA PO SCH (09:40)
[2018-01-08] MEDS: ASPIRIN/DIPYRIDAMOLE 25 MG/200 MG CAPSULE (FP) PO SCH (09:40)
[2018-01-08] MEDS: POLYETHYLENE GLYCOL 3350 119 GM BTL PO SCH (09:40)
[2018-01-08] MEDS: VENLAFAXINE HCL 75 MG E.R. CAPSULES (FP) PO SCH (09:40)
[2018-01-08] MEDS: CHOLECALCIFEROL (VITAMIN D3) 1,000 UNIT TABLET (FP) PO SCH (09:41)
[2018-01-08] MEDS ORDERED: COLLAGENASE CLOSTRIDIUM HIST. 30 GRAMS TUBE TP SCH (10:30)
--- NOTE | 2018-01-08 11:05 | DS ---
Physical Exam: SUBJECTIVE: Patient seen and examined, patient reports feeling much better, denies any chest pain or shortness of breath, OBJECTIVE: patient is a 87 y/o male with a past medical history of metastic prostate CA, PE (lovenox), DM, GERD, HTN, carotid stenosis, and anemia. Patient was admitted from the emergency department to observation for symptomatic anemia. Vital Signs Period Temp Pulse Resp BP Sys/Kim Pulse Ox Last 24 Hr 97.7 F-99.4 F 72-82 18-20 111-131/44-60 94-99 PHYSICAL EXAM GENERAL: thin, The patient is awake, alert, and fully oriented, in no acute distress. HEAD: Normal with no signs of trauma. EYES: PERRL, extraocular movements intact, sclera paleanicteric, conjunctiva clear. No ptosis. ENT: Ears normal, nares patent, oropharynx clear without exudates, moist mucous membranes. NECK: Trachea midline, full range of motion, supple. LUNGS: Breath sounds equal, clear to auscultation bilaterally, no wheezes, no crackles, no accessory muscle use. HEART: Regular rate and rhythm, S1, S2 without murmur, rub or gallop. ABDOMEN: Soft, nontender, nondistended, normoactive bowel sounds, no guarding, no rebound, no hepatosplenomegaly, no masses. EXTREMITIES: right distal upper extremity, several skin tears, no bleeding noted , 2+ pulses, warm, well-perfused, no edema. NEUROLOGICAL: Cranial nerves II through XII grossly intact. Normal speech, gait not observed. PSYCH: Normal mood, normal affect. SKIN: Warm, dry, normal turgor, stage II medial back LABS Laboratory Results - last 24 hr 01/06/18 01/06/18 01/07/18 14:25 14:25 09:30 WBC 7.2 RBC 2.60 L Hgb 7.9 L Hct 24.4 L MCV 93.5 MCH 30.4 MCHC 32.5 RDW 17.6 H Plt Count 315 MPV 7.3 L Neutrophils % 77.9 Lymphocytes % 8.6 D Monocytes % 11.0 H Eosinophils % 2.0 Basophils % 0.5 Sodium Potassium Chloride Carbon Dioxide Anion Gap BUN Creatinine Creat Clearance w eGFR POC Glucometer Random Glucose Calcium Magnesium Total Bilirubin AST ALT Alkaline Phosphatase Total Protein Albumin TSH Cancelled Blood Type A NEGATIVE Antibody Screen Negative Crossmatch See Detail 01/07/18 01/07/18 01/07/18 09:30 09:30 20:22 WBC 7.3 RBC 2.77 L Hgb 8.2 L Hct 25.4 L MCV 91.7 MCH 29.7 MCHC 32.4 RDW 18.2 H Plt Count 288 MPV 6.6 L Neutrophils % 73.5 Lymphocytes % 12.0 D Monocytes % 12.5 H Eosinophils % 1.6 Basophils % 0.4 Sodium 132 L Potassium 5.1 Chloride 104 Carbon Dioxide 23 Anion Gap 5 L BUN 19 H Creatinine 0.9 Creat Clearance w eGFR > 60 POC Glucometer Random Glucose 212 H Calcium 7.8 L Magnesium 1.8 Total Bilirubin 0.4 AST 21 ALT 13 Alkaline Phosphatase 121 H Total Protein 6.5 Albumin 2.2 L TSH Blood Type Antibody Screen Crossmatch 01/08/18 06:06 WBC RBC Hgb Hct MCV MCH MCHC RDW Plt Count MPV Neutrophils % Lymphocytes % Monocytes % Eosinophils % Basophils % Sodium Potassium Chloride Carbon Dioxide Anion Gap BUN Creatinine Creat Clearance w eGFR POC Glucometer 158 Random Glucose Calcium Magnesium Total Bilirubin AST ALT Alkaline Phosphatase Total Protein Albumin TSH Blood Type Antibody Screen Crossmatch HOSPITAL COURSE: patient was admitted from the emergency department to observation for symptomatic anemia. Patient was given 2 units of PRBC, repeat hgb 8.2. Anemia is likely secondary to chronic disease. Patient has past medical history of prostate cancer, home dose of morphine continued, followed by Dr Venegas, oncology, patient will require outpatient follow up. lactic acidosis noted secondary to metastic ca. Patient has a past medical history of pulmonary embolism, lovenox was continued throughout admission. blood pressure remained at goal. aggrenox was continued secondary to patient's history of carotid stenosis. PLAN - discharge home with visiting nurse - continue Santyl to stage II medial back decubti daily - continue all medications as prescribed - strict follow up with Dr Becerra (PCP) within 1 week Date of Admission:01/06/18 Date of Discharge: 01/08/18 Minutes to complete discharge: 45 Discharge Summary Reason For Visit: FAILURE TO THRIVE Current Active Problems CAD (coronary artery disease) (Acute) FTT (failure to thrive) in adult (Acute) Condition: Stable - Instructions Referrals: Rey Becerra MD [Primary Care Provider] - Disposition: VNS/HOME HEALTH CARE - Home Medications Comprehensive Discharge Medication List: Ambulatory Orders Aspirin/Dipyridamole [Aggrenox -] 1 combo PO BID 11/11/17 Cholecalciferol (Vitamin D3) [Vitamin D3] 5,000 unit PO DAILY 11/11/17 Denosumab [Xgeva -] 1.7 ml SQ MONTHLY 11/11/17 Docusate Sodium [Colace] 300 mg PO HS 11/11/17 Enoxaparin Sodium [Lovenox] 80 mg SQ BID 11/11/17 Morphine Sulfate [Morphine Sulfate ER] 60 mg PO Q12H 11/11/17 Multivitamin [One Daily] 1 each PO DAILY 11/11/17 Naph,Mb-Db/K pH,Mbdb [PHOS-NaK PACKET -] 1 packet PO TID 11/11/17 Pantoprazole Sodium 40 mg PO DAILY 11/11/17 Polyethylene Glycol 3350 [Miralax 119 gm Btl -] 17 gm PO DAILY 11/11/17 Pregabalin [Lyrica -] 150 mg PO Q8H 11/11/17 Sitagliptin Phos/Metformin HCl [Janumet 50-1,000 mg Tablet] 1 each PO BID Venlafaxine HCl ER [Effexor Xr -] 100 mg PO DAILY 11/11/17 Insulin Glargine,Hum.rec.anlog [Lantus] 12 unit SQ AM 01/06/18 This patient is new to me today: No Emergency Visit: Yes ED Registration Date: 01/06/18 Care time: The patient presented to the Emergency Department on the above date and was hospitalized for further evaluation of their emergent condition. Critical Care patient: No - Discharge Referral Referred to [facility] Med P.C.: No
--- NOTE | 2018-01-08 13:04 | EKG ---
Test Reason : Blood Pressure : / mmHG Vent. Rate : 075 BPM Atrial Rate : 075 BPM P-R Int : 284 ms QRS Dur : 114 ms QT Int : 378 ms P-R-T Axes : 019 -35 057 degrees QTc Int : 422 ms SINUS RHYTHM WITH 1ST DEGREE A-V BLOCK LEFT AXIS DEVIATION INCOMPLETE LEFT BUNDLE BRANCH BLOCK MODERATE VOLTAGE CRITERIA FOR LVH, MAY BE NORMAL VARIANT ABNORMAL ECG WHEN COMPARED WITH ECG OF 15-NOV-2017 13:08, NO SIGNIFICANT CHANGE WAS FOUND Confirmed by BRIAN BURNETTE MD ([id number]) on 01/08/2018 1:04:17 PM Referred By: AILYN Confirmed By:BRIAN BURNETTE MD
--- NOTE | 2018-01-08 13:46 | CON.PULM ---
Consult Consult Specialty:: PULMONARY Referred by:: DONNA Reason for Consultation:: SOB - History of Present Illness Chief Complaint: SOB History of Present Illness: 87 M with h/o DM, PE on lovenox, Prostate CA with bone mets, HTN, chronic back pain and recurrent SBO, presenting to ED with generalized weakness. Pt is accompanied by family member who reports that pt has been requiring more and more assistance at home with all ADLs. He has fallen on multiple occasions, causing skin tears to his arms and legs. Pt reports feeling weak but denies F/ C. Denies CP/SOB. He was recently admitted for anemia requiring transfusion. Pt denies any dark tarry stools or bloody stools. Denies headstrike/LOC recently but states that he fell a few days ago going to the bathroom. I was covering for Renan Sheth and patient was seen in his office with above symptoms. He was sent to the ER for further evaluation and admission. - History Source History Provided By: Patient, Family Member, Medical Record Limitations to Obtaining History: Clinical Condition - Past Medical History [employer]: No: Alzheimer's Cardio/Vascular: Yes: CAD, HTN Pulmonary: Yes: Pulmonary Embolus (25 years ago) Gastrointestinal: Yes: GERD, Other (recurring SBO) Renal/: Yes: Cancer Musculoskeletal: Yes: Chronic low back pain Dermatology: Yes: Other - Alcohol/Substance Use Hx Alcohol Use: No History of Substance Use: reports: None - Smoking History Smoking history: Former smoker Have you smoked in the past 12 months: No Aproximately how many cigarettes per day: 0 If you are a former smoker, when did you quit?: 1984 - Social History Usual Living Arrangement: With Spouse ADL: Independent Place of : [facility] History of Recent Travel: No Home Medications - Allergies Allergies/Adverse Reactions: Allergies Allergy/AdvReac Type Severity Reaction Status Date / Time No Known Drug Allergies Allergy Verified 01/06/18 12:43 - Home Medications Home Medications: Ambulatory Orders Aspirin/Dipyridamole [Aggrenox -] 1 combo PO BID 11/11/17 Cholecalciferol (Vitamin D3) [Vitamin D3] 5,000 unit PO DAILY 11/11/17 Denosumab [Xgeva -] 1.7 ml SQ MONTHLY 11/11/17 Docusate Sodium [Colace] 300 mg PO HS 11/11/17 Enoxaparin Sodium [Lovenox] 80 mg SQ BID 11/11/17 Morphine Sulfate [Morphine Sulfate ER] 60 mg PO Q12H 11/11/17 Multivitamin [One Daily] 1 each PO DAILY 11/11/17 Naph,Mb-Db/K pH,Mbdb [PHOS-NaK PACKET -] 1 packet PO TID 11/11/17 Pantoprazole Sodium 40 mg PO DAILY 11/11/17 Polyethylene Glycol 3350 [Miralax 119 gm Btl -] 17 gm PO DAILY 11/11/17 Pregabalin [Lyrica -] 150 mg PO Q8H 11/11/17 Sitagliptin Phos/Metformin HCl [Janumet 50-1,000 mg Tablet] 1 each PO BID Venlafaxine HCl ER [Effexor Xr -] 100 mg PO DAILY 11/11/17 Insulin Glargine,Hum.rec.anlog [Lantus] 12 unit SQ AM 01/06/18 Collagenase Clostridium Hist. [Santyl -] 1 applic TP DAILY #1 tube 01/08/18 Nystatin Powder [Nystop Powder -] 1 applic TP DAILY #1 bottle 01/08/18 Review of Systems - Review of Systems Constitutional: reports: Loss of Appetite, Unintentional Wgt. Loss, Weakness. denies: Fever Eyes: denies: Blurred Vision HENT: denies: Difficult Swallowing Neck: denies: Decreased ROM Cardiovascular: denies: Chest Pain Respiratory: reports: Cough, SOB on Exertion Gastrointestinal: denies: Abdominal Pain Genitourinary: denies: Burning Physical Exam Vital Sings: Vital Signs Temperature 97.7 F 01/08/18 09:37 Pulse Rate 81 01/08/18 09:37 Respiratory Rate 18 01/08/18 09:37 Blood Pressure 131/60 01/08/18 09:37 O2 Sat by Pulse Oximetry (%) 99 01/08/18 00:00 Constitutional: Yes: Calm Eyes: Yes: EOM Intact HENT: Yes: Normocephalic Neck: Yes: Trachea Midline Cardiovascular: Yes: Tachycardia, S2 Respiratory: Yes: CTA Bilaterally ...Clubbing: No Gastrointestinal: Yes: Normal Bowel Sounds Edema: No Neurological: Yes: Alert Labs: CBC, BMP 01/07/18 20:22 01/07/18 09:30 rest reviewed Imaging - Results Chest X-ray: Report Reviewed, Image Reviewed Cat Scan: Report Reviewed EKG: Report Reviewed, Image Reviewed Problem List - Problems (1) Prostate cancer metastatic to bone Code(s): C61 - MALIGNANT NEOPLASM OF PROSTATE; C79.51 - SECONDARY MALIGNANT NEOPLASM OF BONE (2) CAD (coronary artery disease) Code(s): I25.10 - ATHSCL HEART DISEASE OF [place] CORONARY ARTERY W/O ANG PCTRS (3) FTT (failure to thrive) in adult Code(s): R62.7 - ADULT FAILURE TO THRIVE (4) Pulmonary embolism Code(s): I26.99 - OTHER PULMONARY EMBOLISM WITHOUT ACUTE COR PULMONALE Qualifiers: Pulmonary embolism type: saddle Chronicity: acute Acute cor pulmonale presence: with acute cor pulmonale Qualified Code(s): I26.02 - Saddle embolus of pulmonary artery with acute cor pulmonale (5) Weakness Code(s): R53.1 - WEAKNESS Assessment/Plan LIKELY ANEMIA CAUSING SOB PROSTATE CA WITH EXTENSIVE METATSTATIC DISEASE MULTIPLE CO-MORBID CONDITIONS LISTED BRIGHT CURRENT PLAN TO TRANSFUSE PATIENT TO HGB OVER 8GMS SUPPLEMENTAL O2/CONTINUE HOME MEDS MAY NEED SNF REHAB IF FAMILY AGREES Suraj FRIAS MD
[2018-01-08 14:30] VITALS: BP 100/46; PULSE 74; TEMP 99.2
== END 2018-01-08 16:45 | disposition home health service (06) ==
LOC: FER 12:40 → FM/S 16:24
PROVIDERS: ADMIT Internal Medicine; ATTEND Nurse Practitioner Family
PROC: 3E033GC Introduction of Other Therapeutic Substance into Peripheral Vein, Percutaneous Approach (ICD-10-PCS; principal; 2018-01-06)
PROC: 3E0337Z Introduction of Electrolytic and Water Balance Substance into Peripheral Vein, Percutaneous Approach (ICD-10-PCS; 2018-01-06)
PROC: 3E013VG Introduction of Insulin into Subcutaneous Tissue, Percutaneous Approach (ICD-10-PCS; 2018-01-06)
PROC: 3E013GC Introduction of Other Therapeutic Substance into Subcutaneous Tissue, Percutaneous Approach (ICD-10-PCS; 2018-01-06)
DX: R62.7 Adult failure to thrive (principal); I10 Essential (primary) hypertension; I25.10 Atherosclerotic heart disease of native coronary artery without angina pectoris; E10.9 Type 1 diabetes mellitus without complications; F41.9 Anxiety disorder, unspecified; C61 Malignant neoplasm of prostate; C79.51 Secondary malignant neoplasm of bone; D64.9 Anemia, unspecified; M54.5 Low back pain; G89.29 Other chronic pain; K21.9 Gastro-esophageal reflux disease without esophagitis; Z79.82 Long term (current) use of aspirin; Z79.4 Long term (current) use of insulin; Z86.711 Personal history of pulmonary embolism; Z87.891 Personal history of nicotine dependence
CPT/HCPCS: 36415; 36430; 70450-TC; 71045-TC-FY; 80053; 81003; 81015; 82550; 82962; 83605; 83735; 83880; 84443; 84484; 85025; 85610; 85730; 86850; 86900; 86901; 86922; 93005; 96361; 96372; 96374; 97116-GP; 97161-GP; 99283-25; G0378; J7030; P9038; P9058

== ENCOUNTER 2018-02-15 16:19 | Inpatient (IN) | payer OTHER ==
--- NOTE | 2018-02-15 16:39 | PDOC ---
History of Present Illness - General History Source: Patient, Care Provider, Family Exam Limitations: No Limitations - History of Present Illness Initial Comments: 02/15/18 17:46 The patient is a 88 year old male with past medical history of anemia, prostate cancer (metastasized to the bone), CAD, HTN, diabetes, PE (on Lovenox), GERD, chronic back pain, recurrent SBO, anemia (required transfusion, last one a month ago), presents to the emergency department after blood reports showed low hemoglobin level. As per the family, the patients hemoglobin levels came back [address] Wolf suggested they bring him into the ed. The patients reports the patients been not himself lately, hes been experiencing increase fatigue (occasionally falls asleep mid sentence), subjective fever, tremors shakes, dizziness and skin feel hotter than usual. The reports the patient ambulates on his own. The patient has a wound to the lumbar region, which drains yellow fluid w/ occasional green green color drainage, no bloody discharge or foul odor. The reports the wound started as a pink spot and over time it increased in size. Denies SOB, chest pain or chest tightness. Denies melena, black stool or hematochezia. Denies dysuria, hematuria or history of UTI. Allergies: NKDA PCP: Dr. Rey Becerra Social history: Former smoker. Denies the use of alcohol or recreational drugs. <Angle Glover - Last Filed: 02/15/18 18:43> - General History Source: Patient, Care Provider, Family Exam Limitations: No Limitations <Amada Thorne - Last Filed: 02/15/18 18:52> - General Chief Complaint: Revisit, Lab Variance Stated Complaint: "Low blood levels" Past History <Angle Glover - Last Filed: 02/15/18 18:43> - Past Medical History Anemia: No Asthma: No Cancer: (PROSTATE WITH METS TO SPINE) Cardiac Disorders: No CVA: No COPD: No (PE many years ago) CHF: No Dementia: No Diabetes: Yes (TYPE I) GI Disorders: No Disorders: No HTN: Yes Hypercholesterolemia: No Liver Disease: No Psychiatric Problems: Yes (ANXIETY) Seizures: No Thyroid Disease: No - Surgical History Abdominal Surgery: Yes (ABD ADHESIONS) Appendectomy: Yes Cardiac Surgery: No Cholecystectomy: No Lung Surgery: No Neurologic Surgery: No Orthopedic Surgery: Yes (SEVERAL BACK SXS, LAST 03/2016) - Suicide/Smoking/Psychosocial Hx Smoking Status: No Smoking History: Former smoker Have you smoked in the past 12 months: No Number of Cigarettes Smoked Daily: 0 If you are a former smoker, when did you quit?: 1985 Cigars Per Day: 0 Information on smoking cessation initiated: No Hx Alcohol Use: No Drug/Substance Use Hx: No Substance Use Type: None Hx Substance Use Treatment: No <Amada Thorne - Last Filed: 02/15/18 18:52> - Past Medical History Allergies/Adverse Reactions: Allergies Allergy/AdvReac Type Severity Reaction Status Date / Time No Known Drug Allergies Allergy Verified 01/06/18 12:43 Home Medications: Ambulatory Orders Aspirin/Dipyridamole [Aggrenox -] 1 combo PO BID 11/11/17 Denosumab [Xgeva -] 1.7 ml SQ MONTHLY 11/11/17 Docusate Sodium [Colace] 300 mg PO HS 11/11/17 Enoxaparin Sodium [Lovenox] 80 mg SQ BID 11/11/17 Morphine Sulfate [Morphine Sulfate ER] 60 mg PO Q12H 11/11/17 Multivitamin [One Daily] 1 each PO DAILY 11/11/17 Pantoprazole Sodium 40 mg PO DAILY 11/11/17 Polyethylene Glycol 3350 [Miralax 119 gm Btl -] 17 gm PO DAILY 11/11/17 Pregabalin [Lyrica -] 150 mg PO Q8H 11/11/17 Sitagliptin Phos/Metformin HCl [Janumet 50-1,000 mg Tablet] 1 each PO BID Venlafaxine HCl ER [Effexor Xr -] 100 mg PO DAILY 11/11/17 Insulin Glargine,Hum.rec.anlog [Lantus] 12 unit SQ AM 01/06/18 Collagenase Clostridium Hist. [Santyl -] 1 applic TP DAILY #1 tube 01/08/18 Collagenase Clostridium Hist. [Santyl] 1 applic TP DAILY #90 oint...g. 02/14/18 Ketorolac Tromethamine 1 drop OU QID 02/15/18 Prednisolone 1% Ophthalmic [Pred Forte 1% -] 1 drop OU QID 05/12/18 Review of Systems - Review of Systems Able to Perform ROS?: Yes Comments:: 02/15/18 17:47 GENERAL/CONSTITUTIONAL: No fever or chills. (+) weakness. HEAD, EYES, EARS, NOSE AND THROAT: No change in vision. No ear pain or discharge. No sore throat. CARDIOVASCULAR: No chest pain or shortness of breath. RESPIRATORY: No cough, wheezing, or hemoptysis. GASTROINTESTINAL: No nausea, vomiting, diarrhea or constipation. GENITOURINARY: No dysuria, frequency, or change in urination. MUSCULOSKELETAL: No joint or muscle swelling or pain. No neck or back pain. SKIN: No rash NEUROLOGIC: (+) dizziness, tremors. No headache, vertigo, loss of consciousness , or change in strength/sensation. ENDOCRINE: No increased thirst. No abnormal weight change. HEMATOLOGIC/LYMPHATIC: Hx of anemia, easy bleeding, or history of blood clots. ALLERGIC/IMMUNOLOGIC: No hives or skin allergy. <Angle Glover - Last Filed: 02/15/18 18:43> *Physical Exam - Vital Signs Last Vital Signs Temp Pulse Resp BP Pulse Ox 97.7 F 80 20 104/41 100 02/15/18 16:20 02/15/18 16:20 02/15/18 16:20 02/15/18 16:20 02/15/18 16:20 - Physical Exam Comments: 02/15/18 18:43 GENERAL: Awake, alert, and fully oriented, Pallor noted. in no acute distress HEAD: No signs of trauma EYES: PERRLA, EOMI, sclera anicteric, conjunctiva clear ENT: Auricles normal inspection, nares patent. Moist mucosa NECK: Normal ROM, supple, no JVD, or masses LUNGS: Breath sounds equal, clear to auscultation bilaterally. No wheezes, and no crackles HEART: Regular rate and rhythm, normal S1 and S2, no murmurs, rubs or gallops ABDOMEN: Soft, nontender, normoactive bowel sounds. No guarding, no rebound. No masses EXTREMITIES: Lumbar decubitus ulcer over the spine measuring 1 over 2 cm minimal erythema surrounding, yellow drainage noted on the dressing. No clubbing or cyanosis. No cords. NEUROLOGICAL: Alert and oriented x 3. Moves all extremities. Face is symmetric. SKIN: warm, Dry, normal turgor, no rashes or lesions noted. <Angle Glover - Last Filed: 02/15/18 18:43> Heart Score/ECG Review #1 ECG reviewed & interpreted by me at: 16:48 General ECG Interpretation: Sinus Rhythm, Normal Rate, Normal Intervals, No acute ischemic changes Compared to previous ECG there are: No significant change (comparison 01/16/18) <Amada Thorne - Last Filed: 02/15/18 18:52> ED Treatment Course - LABORATORY CBC & Chemistry Diagram: 02/15/18 16:55 02/15/18 16:55 - ADDITIONAL ORDERS Additional order review: Laboratory Results 02/15/18 02/15/18 02/15/18 16:55 16:55 16:55 PT with INR 14.1 H INR 1.27 H PTT (Actin FS) 32.9 Sodium 134 L Potassium 5.2 H Chloride 104 Carbon Dioxide 22 Anion Gap 8 BUN 22 H Creatinine 1.0 Creat Clearance w eGFR > 60 Random Glucose 147 H D Calcium 8.1 L Total Bilirubin 0.4 AST 15 D ALT 8 L D Alkaline Phosphatase 123 H Troponin I 0.03 Total Protein 7.0 Albumin 2.7 L D <Angle Glover - Last Filed: 02/15/18 18:43> - LABORATORY CBC & Chemistry Diagram: 02/15/18 16:55 02/15/18 16:55 <Amada Thorne - Last Filed: 02/15/18 18:52> Medical Decision Making - Medical Decision Making 02/15/18 16:37 88 yo M with h/o prostate CA with mets, anemia ( unknown source) here with c/o fatigue, dizziness and hgb of 6. no black stools. no n/v no f/c. exam noted for pallor and fatigue. lumbar wound draining yellow clear fluid. no surroudning erythema. differential renal failure, anemia, mi, infection such as uti . plan ua cultrues , labs cbc type and screen. will amy require admission for transfuxion for symptomatic anemia. 02/15/18 18:49 pt with hgb of 6.8 will transfuse 2 units. rectal temperature 100.. given tylenol. will check ua and cxr, blood cultures sent. <Amada Thorne - Last Filed: 02/15/18 18:52> *DC/Admit/Observation/Transfer - Attestations Scribe Attestion: 02/15/18 17:48 Documentation prepared by Angle Glover, acting as medical office coordinator for Amada Thorne MD. <Angle Glover - Last Filed: 02/15/18 18:43> - Discharge Dispostion Decision to Admit order: Yes <Amada Thorne - Last Filed: 02/15/18 18:52> Diagnosis at time of Disposition: Anemia - Discharge Dispostion Condition at time of disposition: Stable - Referrals Referrals: Rey Becerra MD [Primary Care Provider] - - Patient Instructions - Post Discharge Activity
[2018-02-15 17:21] LABS: ACTIVATED PTT 32.9 SECONDS (24.0-38.9)
[2018-02-15 17:25] LABS: INR 1.27 (0.82-1.09); PROTHROMBIN TIME (PATIENT) 14.1 SEC (10.2-13.0)
[2018-02-15 17:33] LABS: ALBUMIN 2.7 g/dl (3.5-5.0); ALK PHOS 123 U/L (32-92); ANION GAP 8 (8-16); BILIRUBIN,TOTAL 0.4 mg/dl (0.2-1.0); BLOOD UREA NITROGEN 22 mg/dl (7-18); CALCIUM 8.1 mg/dl (8.4-10.2); CHLORIDE 104 mmol/L (98-107); CO2 22 mmol/L (22-28); GLUCOSE,RANDOM 147 mg/dl (74-106); POTASSIUM 5.2 mmol/L (3.5-5.1); SGOT/AST 15 U/L (10-42); SGPT/ALT 8 U/L (10-40); SODIUM 134 mmol/L (136-145)
[2018-02-15 17:59] LABS: BASO % 0.3 % (0-2.0); LYMPH % 11.3 % (8-40); MCH 32.9 pg (25.7-33.7); MCHC 33.8 g/dl (32.0-35.9); MEAN CELL VOLUME 97.4 fl (80-96); MEAN PLT VOLUME 7.8 fl (7.5-11.1); MONO % 11.8 % (3.8-10.2); NEUT % 75.6 % (42.8-82.8); PLATELET COUNT 210 K/MM3 (134-434); RBC 2.05 M/mm3 (4.00-5.60); RDW 20.8 % (11.9-15.9); WHITE BLOOD COUNT 7.5 K/mm3 (4.0-10.0)
[2018-02-15 18:11] LABS: HEMOGLOBIN 6.8 GM/dL (11.7-16.9)
[2018-02-15 18:12] LABS: ADD RBC MORPHOLOGY YES
[2018-02-15] MEDS ORDERED: ACETAMINOPHEN 1000 MG/100 ML VIAL (NON FORMULARY) IVPB ONE (18:31)
[2018-02-15] MEDS ORDERED: ACETAMINOPHEN INJECTION 100 ML IVPB ONE (19:03)
[2018-02-15 19:23] LABS: URINE BILIRUBIN Negative (NEGATIVE); URINE BLOOD 2+ (NEGATIVE); URINE GLUCOSE (UA) Negative (NEGATIVE); URINE KETONE Negative (NEGATIVE); URINE LEUK ESTERASE Negative (NEGATIVE); URINE NITRITE Negative (NEGATIVE); URINE PROTEIN 2+ (NEGATIVE); URINE UROBILINOGEN 0.2 (0.2-1.0)
[2018-02-15 19:24] LABS: URINE APPEARANCE HAZY
[2018-02-15 19:30] LABS: AMORP URATES MODERATE /hpf (NONE SEEN); EPI CELLS FEW /HPF; URINE COLOR YELLOW
[2018-02-15 19:31] LABS: URINE BACTERIA FEW /hpf (NEGATIVE)
[2018-02-15 19:52] LABS: ANISOCYTOSIS 2+; MACROCYTOSIS 1+; OVALOCYTE RARE; PLATELET ESTIMATE ADEQUATE
[2018-02-15] MEDS ORDERED: ENOXAPARIN NA (PORCINE) 80 MG/0.8 ML DISP.SYRIN SQ SCH (22:00)
[2018-02-15] MEDS: prednisoLONE ACETATE 1% OPHTH SUSP 5 ML BOTTLE OU SCH (22:06)
[2018-02-15] MEDS: morphine SO4 SUSTAINED ACTING 30 MG TABLET.SA PO SCH (22:06)
[2018-02-15] MEDS: PREGABALIN 50 MG CAPSULE PO SCH (22:11)
[2018-02-15] MEDS: DOCUSATE SODIUM 100 MG CAPSULE (FP) PO SCH (22:11)
[2018-02-16] MEDS: PREGABALIN 50 MG CAPSULE PO SCH ×3 (06:44→21:16)
[2018-02-16] MEDS: INSULIN DETEMIR 100 UNITS/ML MDV SQ SCH (06:44)
--- NOTE | 2018-02-16 07:48 | HP ---
CHIEF COMPLAINT: low hemoglobin count PCP: Dr. Holloway HISTORY OF PRESENT ILLNESS: This is an 87 year old male with PMHx of NIDDM, metastatic prostate cancer on Xgeva, PE s/p IVC filter (on Lovenox), SBO, carotid stenosis (on Aggrenox), anemia (requiring PRBC transfusion 1 month ago), who presented to the ED by pcp for low Hgb and dizziness, fatigue, and subjective fever. The patient is a poor historian. The states the patient was in good health on 02/14 and then yesterday on 02/15 she noticed he was more lethargic and complained of dizziness. The patient's also reports that the patient recently started seeing Dr. Glez for his wound on his back, first appointment was on 02/14. She reports that the wound is unchanged in the past few weeks. The patient denies any headache, chest pain, lower extremity pain/swelling, urinary symptoms, cough. ER course was notable for: (1) Temp 100, pulse 80, BP 104/41, resp 20, O2 100% on RA (2) Hgb 6.8 (3) Na 134, K 5.2 (4) Chest X-ray with no acute pathology Recent Travel: denies PAST MEDICAL HISTORY: as above PAST SURGICAL HISTORY: as above Social History: Smoking: denies Alcohol: denies Drugs: denies Family History: Allergies No Known Drug Allergies Allergy (Verified 01/06/18 12:43) HOME MEDICATIONS: Home Medications Medication Instructions Recorded Aspirin/Dipyridamole [Aggrenox -] 1 combo PO BID 11/11/17 Denosumab [Xgeva -] 1.7 ml SQ MONTHLY 11/11/17 Docusate Sodium [Colace] 300 mg PO HS 11/11/17 Enoxaparin Sodium [Lovenox] 80 mg SQ BID 11/11/17 Morphine Sulfate [Morphine Sulfate 60 mg PO Q12H 11/11/17 ER] Multivitamin [One Daily] 1 each PO DAILY 11/11/17 Pantoprazole Sodium 40 mg PO DAILY 11/11/17 Polyethylene Glycol 3350 [Miralax 17 gm PO DAILY 11/11/17 119 gm Btl -] Pregabalin [Lyrica -] 150 mg PO Q8H 11/11/17 Sitagliptin Phos/Metformin HCl 1 each PO BID 11/11/17 [Janumet 50-1,000 mg Tablet] Venlafaxine HCl ER [Effexor Xr -] 100 mg PO DAILY 11/11/17 Insulin Glargine,Hum.rec.anlog 12 unit SQ AM 01/06/18 [Lantus] Collagenase Clostridium Hist. 1 applic TP DAILY #1 tube 01/08/18 [Santyl -] Collagenase Clostridium Hist. 1 applic TP DAILY #90 oint...g. 02/14/18 [Santyl] Ketorolac Tromethamine 1 drop OU QID 02/15/18 Prednisolone 1% Ophthalmic [Pred 1 drop OU QID 02/15/18 Forte 1% -] REVIEW OF SYSTEMS CONSTITUTIONAL: Subjective fever yesterday, weakness, fatigue Absent: chills, diaphoresis, malaise, loss of appetite, weight change HEENT: Absent: rhinorrhea, nasal congestion, throat pain, throat swelling, difficulty swallowing, mouth swelling, ear pain, eye pain, visual changes CARDIOVASCULAR: Absent: chest pain, syncope, palpitations, irregular heart rate, lightheadedness , peripheral edema RESPIRATORY: Absent: cough, shortness of breath, dyspnea with exertion, orthopnea, wheezing, stridor, hemoptysis GASTROINTESTINAL: Absent: abdominal pain, abdominal distension, nausea, vomiting, diarrhea, constipation, melena, hematochezia GENITOURINARY: Absent: dysuria, frequency, urgency, hesitancy, hematuria, flank pain, genital pain MUSCULOSKELETAL: Absent: myalgia, arthralgia, joint swelling, back pain, neck pain SKIN: Absent: rash, itching, pallor HEMATOLOGIC/IMMUNOLOGIC: Absent: easy bleeding, easy bruising, lymphadenopathy, frequent infections ENDOCRINE: Absent: unexplained weight gain, unexplained weight loss, heat intolerance, cold intolerance NEUROLOGIC: Absent: headache, focal weakness or paresthesias, dizziness, unsteady gait, seizure, mental status changes, bladder or bowel incontinence PSYCHIATRIC: Absent: anxiety, depression, suicidal or homicidal ideation, hallucinations. PHYSICAL EXAMINATION Vital Signs - 24 hr 02/15/18 02/15/18 02/15/18 16:20 19:00 19:50 Temperature 97.7 F 100 F H Pulse Rate 80 Pulse Rate [ 82 Left Apical] Respiratory 20 18 Rate Blood Pressure 104/41 Blood Pressure 97/51 [Right Arm] O2 Sat by Pulse 100 97 94 L Oximetry (%) 02/15/18 02/15/18 02/15/18 20:10 21:00 22:00 Temperature 98.5 F Pulse Rate 63 Pulse Rate [ Left Apical] Respiratory 18 Rate Blood Pressure 96/30 Blood Pressure [Right Arm] O2 Sat by Pulse 94 L 98 Oximetry (%) 02/15/18 02/16/18 23:25 03:32 Temperature 98.2 F 98.3 F Pulse Rate 68 73 Pulse Rate [ Left Apical] Respiratory 17 16 Rate Blood Pressure 95/42 102/41 Blood Pressure [Right Arm] O2 Sat by Pulse 97 Oximetry (%) GENERAL: Awake, alert, in no acute distress. HEAD: Normal with no signs of trauma. EYES: Pupils equal, round and reactive to light, extraocular movements intact, sclera anicteric, conjunctiva clear. No lid lag. EARS, NOSE, THROAT: Ears normal, nares patent, oropharynx clear without exudates. Moist mucous membranes. NECK: Normal range of motion, supple without lymphadenopathy, JVD, or masses. LUNGS: Breath sounds equal, clear to auscultation bilaterally. No wheezes, and no crackles. No accessory muscle use. HEART: Regular rate and rhythm, normal S1 and S2 ABDOMEN: Soft, nontender, not distended, normoactive bowel sounds, no guarding, no rebound, no masses. No hepatomegaly or splenomegaly. MUSCULOSKELETAL: Normal range of motion at all joints. UPPER EXTREMITIES: 2+ pulses, warm, well-perfused. No cyanosis. No clubbing. No peripheral edema. LOWER EXTREMITIES: 2+ pulses, warm, well-perfused. No calf tenderness. No peripheral edema. NEUROLOGICAL: Cranial nerves II-XII intact. Normal speech. Normal gait. PSYCHIATRIC: Cooperative. Good eye contact. Appropriate mood and affect. SKIN: Lumbar decubitus ulcer with minimal erythema and yellowish drainage on dressing. Laboratory Results - last 24 hr 02/15/18 02/15/18 02/15/18 16:55 16:55 16:55 WBC 7.5 RBC 2.05 L Hgb 6.8 L* Hct 20.0 L MCV 97.4 H MCH 32.9 MCHC 33.8 RDW 20.8 H Plt Count 210 MPV 7.8 Neutrophils % 75.6 Lymphocytes % 11.3 Monocytes % 11.8 H Eosinophils % 1.0 Basophils % 0.3 Platelet Estimate Adequate Platelet Comment Rare giant plts Polychromasia 1+ Poikilocytosis 1+ Anisocytosis 2+ Macrocytosis 1+ Ovalocytes Rare PT with INR 14.1 H INR 1.27 H PTT (Actin FS) 32.9 Sodium 134 L Potassium 5.2 H Chloride 104 Carbon Dioxide 22 Anion Gap 8 BUN 22 H Creatinine 1.0 Creat Clearance w eGFR > 60 POC Glucometer Random Glucose 147 H D Lactic Acid Calcium 8.1 L Total Bilirubin 0.4 AST 15 D ALT 8 L D Alkaline Phosphatase 123 H Troponin I Total Protein 7.0 Albumin 2.7 L D Urine Color Urine Appearance Urine pH Ur Specific [place] Urine Protein Urine Glucose (UA) Urine Ketones Urine Blood Urine Nitrite Urine Bilirubin Urine Urobilinogen Ur Leukocyte Esterase Urine RBC Urine WBC Ur Epithelial Cells Amorphous Urates Urine Bacteria Blood Type Antibody Screen Crossmatch 02/15/18 02/15/18 02/15/18 16:55 16:55 19:10 WBC RBC Hgb Hct MCV MCH MCHC RDW Plt Count MPV Neutrophils % Lymphocytes % Monocytes % Eosinophils % Basophils % Platelet Estimate Platelet Comment Polychromasia Poikilocytosis Anisocytosis Macrocytosis Ovalocytes PT with INR INR PTT (Actin FS) Sodium Potassium Chloride Carbon Dioxide Anion Gap BUN Creatinine Creat Clearance w eGFR POC Glucometer Random Glucose Lactic Acid 0.9 Calcium Total Bilirubin AST ALT Alkaline Phosphatase Troponin I 0.03 Total Protein Albumin Urine Color Urine Appearance Urine pH Ur Specific [place] Urine Protein Urine Glucose (UA) Urine Ketones Urine Blood Urine Nitrite Urine Bilirubin Urine Urobilinogen Ur Leukocyte Esterase Urine RBC Urine WBC Ur Epithelial Cells Amorphous Urates Urine Bacteria Blood Type A NEGATIVE Antibody Screen Negative Crossmatch See Detail 02/15/18 02/15/18 02/16/18 19:12 22:03 05:57 WBC RBC Hgb Hct MCV MCH MCHC RDW Plt Count MPV Neutrophils % Lymphocytes % Monocytes % Eosinophils % Basophils % Platelet Estimate Platelet Comment Polychromasia Poikilocytosis Anisocytosis Macrocytosis Ovalocytes PT with INR INR PTT (Actin FS) Sodium Potassium Chloride Carbon Dioxide Anion Gap BUN Creatinine Creat Clearance w eGFR POC Glucometer 187 148 Random Glucose Lactic Acid Calcium Total Bilirubin AST ALT Alkaline Phosphatase Troponin I Total Protein Albumin Urine Color Yellow Urine Appearance Hazy Urine pH 5.0 Ur Specific [place] 1.020 Urine Protein 2+ H Urine Glucose (UA) Negative Urine Ketones Negative Urine Blood 2+ H Urine Nitrite Negative Urine Bilirubin Negative Urine Urobilinogen 0.2 Ur Leukocyte Esterase Negative Urine RBC 10-20 Urine WBC 2-3 Ur Epithelial Cells Few Amorphous Urates Moderate Urine Bacteria Few Blood Type Antibody Screen Crossmatch Assessment: This is an 87 year old male with PMHx of NIDDM, metastatic prostate cancer on Xgeva, PE s/p IVC filter (on Lovenox), SBO, carotid stenosis (on Aggrenox), anemia (requiring PRBC transfusion 1 month ago), who presented to the ED by pcp for low Hgb and dizziness, fatigue, and subjective fever. Plan: 1) Symptomatic anemia - S/p 2u PRBC overnight - Denies any dizziness or fatigue today - Iron panel reviewed, appears iron deficient, will start ferrous sulfate - F/u stool for occult blood (has been negative in the past) - Continue to monitor Hgb 2) Fever - Tmax 101.7 today - Started on Ertapenem and Vancomycin - F/u urine culture - F/u blood cultures - F/u wound culture from lumbar decubitus - Appreciate ID consult 3) Metastatic prostate cancer - On Xgeva monthly 4) Px of PE - Continue Lovenox dose adjusted for lower weight 5) Hx of carotid stenosis - reports the patient has been on Aggrenox for 15 years - Continue Aggrenox 6) DM - Levemir 12u sq am - BGM ACHS - ISS ACHS 7) F/E/N: - Diabetic diet - Monitor electrolytes - Hyperkalemia: kayexelate, continue to monitor 8) Prophylaxis: - On full dose Lovenox 9) Dispo: - Once condition improves CODE STATUS: FULL CODE Visit type - Emergency Visit Emergency Visit: Yes ED Registration Date: 02/15/18 Care time: The patient presented to the Emergency Department on the above date and was hospitalized for further evaluation of their emergent condition. - New Patient This patient is new to me today: Yes Date on this admission: 02/16/18 - Critical Care Critical Care patient: No Hospitalist Screening - Colonoscopy Questionnaire Colonoscopy Questionnaire: Colonoscopy Questionnaire - Patient: 50 - 75 years old and never had a screening colonoscopy: Unknown History of colon or rectal polyps, or CA: Unknown History of IBD, Crohn's disease or UC: Unknown History of abdominal radiation therapy as a child: Unknown - Relative: 1 with colon or rectal CA, or polyps at age 60 or younger: Unknown Colon or rectal CA diagnosed at age 45 or younger: Unknown Multiple relatives with colon or rectal CA: Unknown - Outcome: Screening Result: Negative Screen
--- NOTE | 2018-02-16 08:12 | EKG ---
Test Reason : Blood Pressure : / mmHG Vent. Rate : 080 BPM Atrial Rate : 080 BPM P-R Int : 250 ms QRS Dur : 114 ms QT Int : 358 ms P-R-T Axes : 025 -38 085 degrees QTc Int : 412 ms SINUS RHYTHM WITH 1ST DEGREE A-V BLOCK LEFT AXIS DEVIATION MODERATE VOLTAGE CRITERIA FOR LVH, MAY BE NORMAL VARIANT ABNORMAL ECG WHEN COMPARED WITH ECG OF 06-JAN-2018 15:21, NO SIGNIFICANT CHANGE WAS FOUND Confirmed by VASILE THOMAS, BRIAN ([id number]) on 02/16/2018 8:12:33 AM Referred By: JOSEFINA JON Confirmed By:BRIAN BURNETTE MD
[2018-02-16 08:36] LABS: BASO % 0.7 % (0-2.0); EOS % 2.1 % (0-4.5); HEMATOCRIT 24.5 % (35.4-49); HEMOGLOBIN 8.1 GM/dl (11.7-16.9); LYMPH % 11.6 % (8-40); MCH 31.1 pg (25.7-33.7); MEAN CELL VOLUME 94.5 fl (80-96); MEAN PLT VOLUME 7.5 fl (7.5-11.1); MONO % 10.7 % (3.8-10.2); NEUT % 74.9 % (42.8-82.8); PLATELET COUNT 197 K/MM3 (134-434); RDW 18.9 % (11.9-15.9); WHITE BLOOD COUNT 6.8 K/mm3 (4.0-10.8)
[2018-02-16 09:13] LABS: ALBUMIN 2.4 g/dl (3.5-5.0); ALK PHOS 118 U/L (32-92); ANION GAP 6 (8-16); BILIRUBIN,TOTAL 0.6 mg/dl (0.2-1.0); BLOOD UREA NITROGEN 22 mg/dl (7-18); CALCIUM 7.8 mg/dl (8.4-10.2); CHLORIDE 106 mmol/L (98-107); CO2 24 mmol/L (22-28); GLUCOSE,RANDOM 138 mg/dl (74-106); MAGNESIUM 1.7 mg/dL (1.8-2.4); PHOSPHOROUS 1.4 mg/dl (2.5-4.6); POTASSIUM 5.4 mmol/L (3.5-5.1); SGOT/AST 15 U/L (10-42); SGPT/ALT 9 U/L (10-40); SODIUM 136 mmol/L (136-145); TOT PROT 6.2 g/dl (6.4-8.3)
[2018-02-16] MEDS: morphine SO4 SUSTAINED ACTING 30 MG TABLET.SA PO SCH ×2 (09:26→21:20)
[2018-02-16] MEDS: MULTIVITAMINS (DAILY MVI) TABLET (FP) PO SCH (09:27)
[2018-02-16] MEDS: VENLAFAXINE HCL 25 MG TABLET PO SCH (09:27)
[2018-02-16] MEDS: ENOXAPARIN NA (PORCINE) 80 MG/0.8 ML DISP.SYRIN SQ SCH ×2 (09:28→21:15)
[2018-02-16] MEDS: POLYETHYLENE GLYCOL 3350 119 GM BTL PO SCH (09:28)
[2018-02-16] MEDS: PANTOPRAZOLE 40 MG TABLET (FP) PO SCH (09:28)
[2018-02-16] MEDS: prednisoLONE ACETATE 1% OPHTH SUSP 5 ML BOTTLE OU SCH ×4 (09:29→21:16)
[2018-02-16] MEDS: COLLAGENASE CLOSTRIDIUM HIST. 30 GRAMS TUBE TP SCH (09:29)
[2018-02-16] MEDS ORDERED: COLLAGENASE CLOSTRIDIUM HIST. 30 GRAMS TUBE TP SCH (10:00)
[2018-02-16] MEDS: ASPIRIN/DIPYRIDAMOLE 25 MG/200 MG CAPSULE (FP) PO SCH ×2 (11:06→21:16)
[2018-02-16] MEDS ORDERED: SODIUM POLYSTYRENE SULFONATE 15 GM/60 ML BOTTLE PO ONE (11:15)
[2018-02-16] MEDS: MAGNESIUM OXIDE 400 MG TABLET (FP) PO ONE ×2 (11:16→11:44)
[2018-02-16] MEDS ORDERED: SODIUM PHOSPHATE - 15 MM in SODIUM CHLORIDE 250 ML IVPB ONE (11:30)
--- NOTE | 2018-02-16 16:38 | PN ---
Progress Note (short form) - Note Progress Note: ID consult dictated imp/reccd fever ?source metastatic prostate cancer history of prior ecoli esbl uti back wound- nonhealing symptomatic anemia- s/p transfusion vanco/ertapenem f/u cultures obtain wound cultures contact isolation to continue Problem List - Problems (1) Fever Code(s): R50.9 - FEVER, UNSPECIFIED (2) Prostate cancer metastatic to bone Code(s): C61 - MALIGNANT NEOPLASM OF PROSTATE; C79.51 - SECONDARY MALIGNANT NEOPLASM OF BONE (3) Anemia Code(s): D64.9 - ANEMIA, UNSPECIFIED Qualifiers:
[2018-02-16] MEDS: VANCOMYCIN 1 GRAM (PRE-DOCKED) 1,000 MG/250 ML BAG IVPB SCH (16:49)
[2018-02-16] MEDS: ERTAPENEM SODIUM 1 GM/50 ML PRE-DOCKED IVPB SCH (16:49)
[2018-02-16] MEDS: ACETAMINOPHEN 325 MG TABLET (FP) PO PRN (16:49)
--- NOTE | 2018-02-16 18:29 | CONS ---
DATE OF CONSULTATION: DATE OF DICTATION: 02/16/2018 REQUESTED BY: Hospitalist service This is an 88-year-old man with a past medical history of bony metastasis, chronic back pain, recurrent small-bowel obstruction, who was admitted with anemia. He has a history as well of a wound on his upper back that he reports he has now had 4 to 6 weeks. He states he was seen at wound care and referred for admission. The patient lives at home with his family. He apparently came to the emergency room with the anemia. As well, he has not been feeling himself. He has had increasing fatigue, subjective fever, tremor, shakes, dizziness. He apparently ambulates on his own at home. He has had [facility] services for wound care until this [facility]. He denies any shortness of breath. Denies any dysuria. 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 He had a PE many years ago. He has a history of diabetes, hypertension, anxiety. Surgical history is notable for lysis of adhesions, appendectomy, and he has had several back surgeries, the last in 2016. He has no known drug allergies. His medications at home include Aggrenox, Xgeva, Colace, Lovenox, morphine sulfate, multivitamins, pantoprazole, MiraLax, Lyrica, Janumet, Effexor, insulin, Santyl, ketorolac drops, and prednisolone drops. SOCIAL HISTORY: Lives at home with his , who is a retired nurse. He is a former smoker, he quit in 1984. No history of any other substance use. REVIEW OF SYSTEMS: As per HPI. He has been feeling increasingly fatigued and weak. PHYSICAL EXAMINATION: Vital Signs: His current temperature is 101.7 rectally. Pulse of 85. Blood pressure 103/39. Respiratory rate 16. He is saturating 97% on 1.5 L. HEENT: He is normocephalic. Eyes are anicteric. General: He is alert. Lungs: Bibasilar crackles. Heart: Regular rate and rhythm. Abdomen: Soft, nontender. He has multiple healed surgical incisions. He has a 2 x 2 cm stage 3 ulcer with a greenish base and some non-purulent discharge on his back with no surrounding erythema. Extremities: Without edema. White count is 6.8. He was transfused 2 units. Hemoglobin on admission was 6.7, currently is 8.1, platelets are 197. BUN 22, creatinine 1. Alkaline phosphatase of 118. His albumin is 2.4. Urinalysis is negative for leukocyte esterase. In summary, this is an elderly man with metastatic prostate cancer, admitted with symptomatic anemia, now with fevers. Sources include his sacral ulcer. Cultures are pending. His chest x-ray was read and shows no evidence of any acute infiltrate. Would suggest we cover him. He has a prior history in June 2017 of an E coli ESBL in the urine but he has had subsequent urine cultures since that time that have been negative. Currently his urinalysis is negative for leukocyte esterase. Would suggest at this time that we follow up cultures and treat him with broad-spectrum antibiotics to cover skin. He has had multiple admissions so, pending culture results, would cover him with vancomycin and ertapenem. Further recommendations to follow. Melissa ARELLANO/[id number]
[2018-02-16] MEDS: DOCUSATE SODIUM 100 MG CAPSULE (FP) PO SCH (21:16)
[2018-02-16] MEDS: INSULIN SLIDING SCALE (NOVOLOG) 1 VIAL SQ SCH (22:39)
[2018-02-17] MEDS: ACETAMINOPHEN 325 MG TABLET (FP) PO PRN ×2 (01:55→17:20)
[2018-02-17] MEDS: INSULIN DETEMIR 100 UNITS/ML MDV SQ SCH (06:38)
[2018-02-17] MEDS: PREGABALIN 50 MG CAPSULE PO SCH ×3 (06:38→21:32)
[2018-02-17] MEDS: INSULIN SLIDING SCALE (NOVOLOG) 1 VIAL SQ SCH ×4 (06:39→21:57)
[2018-02-17 07:42] LABS: BASO % 0.2 % (0-2.0); EOS % 2.4 % (0-4.5); HEMATOCRIT 23.7 % (35.4-49); HEMOGLOBIN 7.8 GM/dl (11.7-16.9); LYMPH % 11.1 % (8-40); MCH 31.1 pg (25.7-33.7); MEAN PLT VOLUME 7.2 fl (7.5-11.1); MONO % 9.3 % (3.8-10.2); PLATELET COUNT 218 K/MM3 (134-434); RBC 2.52 M/mm3 (4.00-5.60); RDW 18.1 % (11.9-15.9); WHITE BLOOD COUNT 5.4 K/mm3 (4.0-10.8)
--- NOTE | 2018-02-17 07:57 | PN ---
Physical Exam: SUBJECTIVE: Patient seen and examined, reports feeling tired with tactile fever , denies any chest pain and shortness of breath OBJECTIVE: Patient is a 87 year old male with PMHx of NIDDM, metastatic prostate cancer on Xgeva, PE s/p IVC filter (on Lovenox), SBO, carotid stenosis (on Aggrenox), anemia (requiring PRBC transfusion 1 month ago). Patient was admitted from the emergency department for sepsis and severe anemia. Vital Signs Period Temp Pulse Resp BP Sys/Kim Pulse Ox Last 24 Hr 97.6 F-101.7 F 70-85 16-18 103-108/39-53 94-97 GENERAL: lethargic, awakens to voice, alert, and fully oriented. HEAD: Normal with no signs of trauma. EYES: PERRL, extraocular movements intact, pale sclera, conjunctiva clear. No ptosis. ENT: Ears normal, nares patent, oropharynx clear without exudates, moist mucous membranes. NECK: Trachea midline, full range of motion, supple. LUNGS: Breath sounds equal, clear to auscultation bilaterally, no wheezes, no crackles, no accessory muscle use. HEART: Regular rate and rhythm, S1, S2 without murmur, rub or gallop. ABDOMEN: Soft, nontender, nondistended, normoactive bowel sounds, no guarding, no rebound, no hepatosplenomegaly, no masses. EXTREMITIES: 2+ pulses, warm, well-perfused, no edema. NEUROLOGICAL: Cranial nerves II through XII grossly intact. Normal speech, gait not observed. PSYCH: Normal mood, normal affect. SKIN: Warm, dry, normal turgor, no rashes or lesions noted, stage III to lumbar , purulent foul smelling drainage Laboratory Results - last 24 hr CBC WBC 5.4 K/mm3 (4.0-10.8) 02/17/18 07:01 RBC 2.52 M/mm3 (4.00-5.60) L 02/17/18 07:01 Hgb 7.8 GM/dl (11.7-16.9) L 02/17/18 07:01 Hct 23.7 % (35.4-49) L 02/17/18 07:01 MCV 94.0 fl (80-96) 02/17/18 07:01 MCH 31.1 pg (25.7-33.7) 02/17/18 07:01 MCHC 33.0 g/dl (32.0-35.9) 02/17/18 07:01 RDW 18.1 % (11.9-15.9) H 02/17/18 07:01 Plt Count 218 K/MM3 (134-434) 02/17/18 07:01 MPV 7.2 fl (7.5-11.1) L 02/17/18 07:01 Neutrophils % 77.0 % (42.8-82.8) 02/17/18 07:01 Lymphocytes % 11.1 % (8-40) 02/17/18 07:01 Monocytes % 9.3 % (3.8-10.2) 02/17/18 07:01 Eosinophils % 2.4 % (0-4.5) 02/17/18 07:01 Basophils % 0.2 % (0-2.0) 02/17/18 07:01 Platelet Estimate Adequate 02/15/18 16:55 Platelet Comment Rare giant plts 02/15/18 16:55 Polychromasia 1+ 02/15/18 16:55 Poikilocytosis 1+ 02/15/18 16:55 Anisocytosis 2+ 02/15/18 16:55 Macrocytosis 1+ 02/15/18 16:55 Ovalocytes Rare 02/15/18 16:55 CMP Sodium 135 mmol/L (136-145) L 02/17/18 07:01 Potassium 3.8 mmol/L (3.5-5.1) D 02/17/18 07:01 Chloride 106 mmol/L (98-107) 02/17/18 07:01 Carbon Dioxide 24 mmol/L (22-28) 02/17/18 07:01 Anion Gap 5 (8-16) L 02/17/18 07:01 BUN 20 mg/dl (7-18) H 02/17/18 07:01 Creatinine 0.9 mg/dl (0.6-1.3) 02/17/18 07:01 Creat Clearance w eGFR > 60 (>60) 02/17/18 07:01 POC Glucometer 150 UNITS (80-120) 02/17/18 06:32 Random Glucose 133 mg/dl (74-106) H 02/17/18 07:01 Lactic Acid 0.9 mmol/L (0.0-2.0) 02/15/18 19:10 Calcium 7.2 mg/dl (8.4-10.2) L 02/17/18 07:01 Phosphorus 1.4 mg/dl (2.5-4.6) L 02/17/18 07:01 Magnesium 1.7 mg/dL (1.8-2.4) L 02/17/18 07:01 Total Bilirubin < 0.5 mg/dl (0.2-1.0) 02/17/18 07:01 AST 14 U/L (10-42) 02/17/18 07:01 ALT 9 U/L (10-40) L 02/17/18 07:01 Alkaline Phosphatase 121 U/L (32-92) H 02/17/18 07:01 Troponin I 0.03 ng/ml (0.00-0.06) 02/15/18 16:55 Total Protein 5.6 g/dl (6.4-8.3) L 02/17/18 07:01 Albumin 2.0 g/dl (3.5-5.0) L 02/17/18 07:01 Laboratory Tests 02/15/18 02/15/18 12:42 12:42 Iron 24 L TIBC 225 L Iron Saturation 11 L Ferritin 586.120 H Laboratory Tests 02/16/18 16:30 Stool Occult Blood Negative Active Medications Generic Name Dose Route Start Last Admin Trade Name Freq PRN Reason Stop Dose Admin Acetaminophen 650 mg 02/16/18 16:32 02/17/18 01:55 Tylenol - PO 650 mg Q6H PRN Administration FEVER Collagenase 1 applic 02/16/18 10:00 02/16/18 09:29 Santyl - TP 1 applic DAILY MANNY Administration Dipyridamole/Aspirin 1 combo 02/16/18 10:00 02/16/18 21:16 Aggrenox - PO 1 combo BID MANNY Administration Docusate Sodium 300 mg 02/15/18 22:00 02/16/18 21:16 Colace - PO 300 mg HS MANNY Administration Enoxaparin Sodium 70 mg 02/16/18 07:59 02/16/18 21:15 Lovenox - SQ 70 mg BID MANNY Administration Ertapenem 1 gm 02/16/18 16:30 02/16/18 16:49 Invanz (Pre-Docked) IVPB 1 gm DAILY MANNY Administration Ferrous Sulfate 325 mg 02/17/18 08:00 Feosol - PO DAILY@0800 [facility] Insulin Aspart 1 vial 02/16/18 22:00 02/17/18 06:39 Novolog Vial Sliding Scale - SQ Not Given ACHS [facility] Protocol Insulin Detemir 12 units 02/16/18 07:00 02/17/18 06:38 Levemir Vial SQ 12 units AM [facility] Administration Morphine Sulfate 60 mg 02/15/18 22:00 02/16/18 21:20 Ms Contin - PO 60 mg BID [facility] Administration Multivitamins/Minerals/Vitamin C 1 tab 02/16/18 10:00 02/16/18 09:27 Tab-A-Vit - PO 1 tab DAILY [facility] Administration Pantoprazole Sodium 40 mg 02/16/18 10:00 02/16/18 09:28 Protonix - PO 40 mg DAILY [facility] Administration Polyethylene Glycol 17 gm 02/16/18 10:00 02/16/18 09:28 Miralax (For Daily Use) - PO 17 grams DAILY [facility] Administration Prednisolone Acetate 1 drop 02/15/18 22:00 02/16/18 21:16 Pred Forte 1% - OU 1 drop QID [facility] Administration Pregabalin 150 mg 02/15/18 22:00 02/17/18 06:38 Lyrica - PO 150 mg TID MANNY Administration Vancomycin HCl 1,000 mg 02/16/18 16:30 02/16/18 16:49 Vancomycin (Pre-Docked) IVPB 1,000 mg DAILY@1630 [facility] Administration Protocol Venlafaxine HCl 100 mg 02/16/18 10:00 02/16/18 09:27 Effexor - PO 100 mg DAILY MANNY Administration Microbiology 02/15/18 19:12 Urine - Urine - Catheterized Urine Culture - Final NO GROWTH OBTAINED 02/15/18 19:00 Blood - Peripheral Venous Blood Culture - Preliminary NO GROWTH OBTAINED AFTER 24 HOURS, INCUBATION TO CONTINUE FOR 4 DAYS. 02/15/18 19:00 Blood - Peripheral Venous Blood Culture - Preliminary NO GROWTH OBTAINED AFTER 24 HOURS, INCUBATION TO CONTINUE FOR 4 DAYS. IMAGING chest xray: no infilirate, no effusion noted EKG: nsr 1st degree av block, left axis deviation ASSESSMENT/PLAN: 1) heme/onc Symptomatic anemia - 2u PRBC (02/15), repeat hgb today 7.8, baseline 10.7, reports feeling fatigued will order 3 unit of PRBC, repeat hgb at 1800 - stool for occult blood negative iron deficiency anemia - iron studies noted, will start venofer, 1st dose today,will require 4 additional doses of venofer Metastatic prostate cancer - On Xgeva monthly - continue home dose morphine sulfate 60mg bid standing with morphine sulfate 10mg q6h for breakthrough pain, medications verfied with [facility] # [id number] - continue lovenox due to hypercoaqulable state, in addition, pt has a history of PE 2)ID fever sepsis - low grade temp noted, no leukocytosis, pending wound culture - continue vanc and invanz (02/16-). - ID consulted and following 3) cardiovascular Hx of carotid stenosis - reports the patient has been on Aggrenox for 15 years - Continue Aggrenox 4) endo DM - Levemir 12u sq am - BGM ACHS with ISS ACHS 5) F/E/N: - Diabetic diet - replete potassium, magnesium, phos and magnesium ordered 6) Prophylaxis: - On full dose Lovenox 7) Dispo: - requires inpatient admission CODE STATUS: FULL CODE Visit type - Emergency Visit Emergency Visit: Yes ED Registration Date: 02/15/18 Care time: The patient presented to the Emergency Department on the above date and was hospitalized for further evaluation of their emergent condition. - New Patient This patient is new to me today: Yes Date on this admission: 02/17/18 - Critical Care Critical Care patient: No - Discharge Referral Referred to [facility] Med [facility].C[facility] No
[2018-02-17] MEDS ORDERED: FERROUS SO4 325 MG TABLET (FP) PO SCH (08:00)
[2018-02-17 08:01] LABS: ALK PHOS 121 U/L (32-92); ANION GAP 5 (8-16); BLOOD UREA NITROGEN 20 mg/dl (7-18); CALCIUM 7.2 mg/dl (8.4-10.2); CHLORIDE 106 mmol/L (98-107); CO2 24 mmol/L (22-28); CREATININE 0.9 mg/dl (0.6-1.3); GLUCOSE,RANDOM 133 mg/dl (74-106); MAGNESIUM 1.7 mg/dL (1.8-2.4); PHOSPHOROUS 1.4 mg/dl (2.5-4.6); POTASSIUM 3.8 mmol/L (3.5-5.1); SGOT/AST 14 U/L (10-42); SGPT/ALT 9 U/L (10-40); SODIUM 135 mmol/L (136-145); TOT PROT 5.6 g/dl (6.4-8.3)
[2018-02-17 08:09] LABS: BILIRUBIN,TOTAL < 0.5 mg/dl (0.2-1.0)
[2018-02-17] MEDS ORDERED: MAGNESIUM SULFATE IN WATER 2 GM/50 ML IVPB IVPB ONE (09:00)
[2018-02-17] MEDS ORDERED: SODIUM PHOSPHATE - 21 MM in SODIUM CHLORIDE 250 ML IVPB ONE (10:00)
[2018-02-17] MEDS ORDERED: PT OWN MED DRAWER 7, Y5N ONE ×5 (10:01→21:49)
[2018-02-17] MEDS: MULTIVITAMINS (DAILY MVI) TABLET (FP) PO SCH (10:02)
[2018-02-17] MEDS: morphine SO4 SUSTAINED ACTING 30 MG TABLET.SA PO SCH ×2 (10:02→21:32)
[2018-02-17] MEDS: PANTOPRAZOLE 40 MG TABLET (FP) PO SCH (10:02)
[2018-02-17] MEDS: ASPIRIN/DIPYRIDAMOLE 25 MG/200 MG CAPSULE (FP) PO SCH ×2 (10:04→21:31)
[2018-02-17] MEDS: POLYETHYLENE GLYCOL 3350 119 GM BTL PO SCH (10:04)
[2018-02-17] MEDS: COLLAGENASE CLOSTRIDIUM HIST. 30 GRAMS TUBE TP SCH (10:05)
[2018-02-17] MEDS: ERTAPENEM SODIUM 1 GM/50 ML PRE-DOCKED IVPB SCH (10:19)
[2018-02-17] MEDS: ENOXAPARIN NA (PORCINE) 80 MG/0.8 ML DISP.SYRIN SQ SCH ×2 (10:19→21:31)
--- NOTE | 2018-02-17 10:21 | PN ---
Progress Note, Physician History of Present Illness: Ambulatory No focal complaint Febrile overnight Cultures pending - Current Medication List Current Medications: Active Medications Acetaminophen (Tylenol -) 650 mg PO Q6H PRN PRN Reason: FEVER Last Admin: 02/17/18 01:55 Dose: 650 mg Collagenase (Santyl -) 1 applic TP DAILY [facility] Last Admin: 02/17/18 10:05 Dose: 1 applic Dipyridamole/Aspirin (Aggrenox -) 1 combo PO BID [facility] Last Admin: 02/17/18 10:04 Dose: 1 combo Docusate Sodium (Colace -) 300 mg PO HS [facility] Last Admin: 02/16/18 21:16 Dose: 300 mg Enoxaparin Sodium (Lovenox -) 70 mg SQ BID [facility] Last Admin: 02/16/18 21:15 Dose: 70 mg Ertapenem (Invanz (Pre-Docked)) 1 gm IVPB DAILY [facility] Last Admin: 02/16/18 16:49 Dose: 1 gm Ferrous Sulfate (Feosol -) 325 mg PO DAILY@0800 [facility] Last Admin: 02/17/18 10:03 Dose: 325 mg Sodium Phosphate 21 mm/ Sodium (Chloride) 257 mls @ 51.4 mls/hr IVPB ONCE ONE Stop: 02/17/18 14:59 Last Admin: 02/17/18 10:04 Dose: 51.4 mls/hr Insulin Aspart (Novolog Vial Sliding Scale -) 1 vial SQ ACHS [facility] PRN Reason: Protocol Last Admin: 02/17/18 06:39 Dose: Not Given Insulin Detemir (Levemir Vial) 12 units SQ AM [facility] Last Admin: 02/17/18 06:38 Dose: 12 units Morphine Sulfate (Ms Contin -) 60 mg PO BID [facility] Last Admin: 02/17/18 10:02 Dose: 60 mg Multivitamins/Minerals/Vitamin C (Tab-A-Vit -) 1 tab PO DAILY [facility] Last Admin: 02/17/18 10:02 Dose: 1 tab Pantoprazole Sodium (Protonix -) 40 mg PO DAILY [facility] Last Admin: 02/17/18 10:02 Dose: 40 mg Polyethylene Glycol (Miralax (For Daily Use) -) 17 gm PO DAILY [facility] Last Admin: 02/17/18 10:04 Dose: 17 grams Prednisolone Acetate (Pred Forte 1% -) 1 drop OU QID [facility] Last Admin: 02/16/18 21:16 Dose: 1 drop Pregabalin (Lyrica -) 150 mg PO TID [facility] Last Admin: 02/17/18 06:38 Dose: 150 mg Vancomycin HCl (Vancomycin (Pre-Docked)) 1,000 mg IVPB DAILY@1630 [facility] PRN Reason: Protocol Last Admin: 02/16/18 16:49 Dose: 1,000 mg Venlafaxine HCl (Effexor -) 100 mg PO DAILY [facility] Last Admin: 02/16/18 09:27 Dose: 100 mg - Objective Vital Signs: Vital Signs Temperature 97.9 F 02/17/18 06:00 Pulse Rate 70 02/17/18 06:00 Respiratory Rate 18 02/17/18 06:00 Blood Pressure 107/44 02/17/18 06:00 O2 Sat by Pulse Oximetry (%) 97 02/17/18 06:00 Constitutional: Yes: Cachectic Cardiovascular: Yes: Regular Rate and Rhythm, S1, S2 Respiratory: Yes: CTA Bilaterally Gastrointestinal: Yes: Normal Bowel Sounds, Soft. No: Tenderness Edema: No Integumentary: Yes: Other (+ dry ulcer dorsal spine with surrounding hyperpigmentation) Labs: CBC, BMP 02/17/18 07:01 02/17/18 07:01 INR, PTT INR 1.27 (0.82-1.09) H 02/15/18 16:55 Assessment/Plan Fever ? source Metastatic prostate ca Non- healing back ulcer Hx ESBL UTI Await c/s Continue vancomycin/ ertapenem
[2018-02-17] MEDS: prednisoLONE ACETATE 1% OPHTH SUSP 5 ML BOTTLE OU SCH ×4 (10:22→21:50)
[2018-02-17] MEDS ORDERED: IRON SUCROSE INJECTION 200 MG in SODIUM CHLORIDE 100 ML IVPB ONE (11:00)
[2018-02-17] MEDS ORDERED: IRON SUCROSE IVPB ONE (11:00)
[2018-02-17] MEDS ORDERED: SODIUM CHLORIDE IVPB ONE (11:00)
[2018-02-17] MEDS: VENLAFAXINE HCL 25 MG TABLET PO SCH (13:47)
[2018-02-17] MEDS: VANCOMYCIN 1 GRAM (PRE-DOCKED) 1,000 MG/250 ML BAG IVPB SCH (16:57)
[2018-02-17] MEDS: morphine SULFATE 10 MG/5 ML UNIT-DOSE CUP PO PRN (17:50)
[2018-02-17 18:20] LABS: EOS % 2.1 % (0-4.5); HEMATOCRIT 27.6 % (35.4-49); MONO % 7.8 % (3.8-10.2)
[2018-02-17 18:22] LABS: BASO % 0.2 % (0-2.0); HEMOGLOBIN 9.5 GM/dl (11.7-16.9); LYMPH % 7.2 % (8-40); MCH 31.7 pg (25.7-33.7); MCHC 34.4 g/dl (32.0-35.9); MEAN CELL VOLUME 92.2 fl (80-96); MEAN PLT VOLUME 7.1 fl (7.5-11.1); NEUT % 82.7 % (42.8-82.8); PLATELET COUNT 207 K/MM3 (134-434); WHITE BLOOD COUNT 6.2 K/mm3 (4.0-10.8)
[2018-02-17 18:30] LABS: ADD RBC MORPHOLOGY YES
[2018-02-17] MEDS: DOCUSATE SODIUM 100 MG CAPSULE (FP) PO SCH (21:31)
[2018-02-17 22:45] LABS: ANISOCYTOSIS 2+; PLATELET ESTIMATE ADEQUATE; TEAR DROP CELLS 1+
[2018-02-18] MEDS: morphine SULFATE 10 MG/5 ML UNIT-DOSE CUP PO PRN ×2 (05:08→14:10)
[2018-02-18] MEDS: PREGABALIN 50 MG CAPSULE PO SCH ×3 (05:09→21:12)
[2018-02-18] MEDS: ACETAMINOPHEN 325 MG TABLET (FP) PO PRN ×2 (05:09→18:39)
[2018-02-18] MEDS: INSULIN SLIDING SCALE (NOVOLOG) 1 VIAL SQ SCH ×4 (06:48→22:17)
[2018-02-18] MEDS: INSULIN DETEMIR 100 UNITS/ML MDV SQ SCH (06:48)
[2018-02-18 07:55] LABS: BASO % 0.4 % (0-2.0); EOS % 2.8 % (0-4.5); HEMATOCRIT 26.6 % (35.4-49); HEMOGLOBIN 8.8 GM/dl (11.7-16.9); LYMPH % 11.5 % (8-40); MCH 30.6 pg (25.7-33.7); MCHC 33.1 g/dl (32.0-35.9); MEAN CELL VOLUME 92.4 fl (80-96); MEAN PLT VOLUME 6.6 fl (7.5-11.1); MONO % 10.8 % (3.8-10.2); NEUT % 74.5 % (42.8-82.8); PLATELET COUNT 229 K/MM3 (134-434); RBC 2.88 M/mm3 (4.00-5.60); RDW 18.9 % (11.9-15.9); WHITE BLOOD COUNT 6.2 K/mm3 (4.0-10.8)
--- NOTE | 2018-02-18 08:45 | PN ---
Physical Exam: SUBJECTIVE: Patient seen and examined, patient reports feeling tired, spiked a fever of 102.6 yesterday evening. 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 Patient was admitted from the emergency department for sepsis and severe anemia. Vital Signs Period Temp Pulse Resp BP Sys/Kim Pulse Ox Last 24 Hr 97.4 F-102.6 F 71-87 18-19 108-117/42-51 92-96 GENERAL: The patient is awake, alert, and fully oriented, in no acute distress. HEAD: Normal with no signs of trauma. EYES: PERRL, extraocular movements intact, sclera anicteric, conjunctiva clear. No ptosis. ENT: Ears normal, nares patent, oropharynx clear without exudates, moist mucous membranes. NECK: Trachea midline, full range of motion, supple. LUNGS: Breath sounds equal, course rhonchi to apexes, diminished to bases, no wheezes, no crackles, no accessory muscle use. HEART: Regular rate and rhythm, S1, S2 without murmur, rub or gallop. ABDOMEN: Soft, nontender, nondistended, normoactive bowel sounds, no guarding, no rebound, no hepatosplenomegaly, no masses. EXTREMITIES: 2+ pulses, warm, well-perfused, no edema. NEUROLOGICAL: Cranial nerves II through XII grossly intact. Normal speech, gait not observed. PSYCH: Normal mood, normal affect. SKIN: Warm, dry, normal turgor, no rashes or lesions noted, alleyn dressing to lumbar spine Laboratory Results - last 24 hr 02/15/18 02/17/18 02/17/18 16:55 12:34 17:50 WBC 6.2 RBC 3.00 L Hgb 9.5 L D Hct 27.6 L D MCV 92.2 MCH 31.7 MCHC 34.4 RDW 19.0 H Plt Count 207 MPV 7.1 L Neutrophils % 82.7 Lymphocytes % 7.2 L D Monocytes % 7.8 Eosinophils % 2.1 Basophils % 0.2 Platelet Estimate Adequate Anisocytosis 2+ Tear Drop Cells 1+ POC Glucometer 123 Blood Type A NEGATIVE Antibody Screen Negative Crossmatch See Detail 02/17/18 02/18/18 02/18/18 21:53 06:42 07:10 WBC 6.2 RBC 2.88 L Hgb 8.8 L Hct 26.6 L MCV 92.4 MCH 30.6 MCHC 33.1 RDW 18.9 H Plt Count 229 MPV 6.6 L Neutrophils % 74.5 Lymphocytes % 11.5 D Monocytes % 10.8 H Eosinophils % 2.8 Basophils % 0.4 Platelet Estimate Anisocytosis Tear Drop Cells POC Glucometer 155 138 Blood Type Antibody Screen Crossmatch Active Medications Generic Name Dose Route Start Last Admin Trade Name Freq PRN Reason Stop Dose Admin Acetaminophen 650 mg 02/16/18 16:32 02/18/18 05:09 Tylenol - PO 650 mg Q6H PRN Administration FEVER Collagenase 1 applic 02/16/18 10:00 02/17/18 10:05 Santyl - TP 1 applic DAILY [facility] Administration Dipyridamole/Aspirin 1 combo 02/16/18 10:00 02/17/18 21:31 Aggrenox - PO 1 combo BID [facility] Administration Docusate Sodium 300 mg 02/15/18 22:00 02/17/18 21:31 Colace - PO 300 mg HS [facility] Administration Enoxaparin Sodium 70 mg 02/16/18 07:59 02/17/18 21:31 Lovenox - SQ 70 mg BID [facility] Administration Ertapenem 1 gm 02/16/18 16:30 02/17/18 10:19 Invanz (Pre-Docked) IVPB 1 gm DAILY [facility] Administration Insulin Aspart 1 vial 02/16/18 22:00 02/18/18 06:48 Novolog Vial Sliding Scale - SQ Not Given [facility] Protocol Insulin Detemir 12 units 02/16/18 07:00 02/18/18 06:48 Levemir Vial SQ 12 units AM [facility] Administration Morphine Sulfate 60 mg 02/15/18 22:00 02/17/18 21:32 Ms Contin - PO 60 mg BID [facility] Administration Morphine Sulfate 10 mg 02/17/18 15:00 02/18/18 05:08 Morphine 10 Mg/5 Ml Liquid PO 10 mg Q6H PRN Administration PAIN LEVEL 7 - 10 Multivitamins/Minerals/Vitamin C 1 tab 02/16/18 10:00 02/17/18 10:02 Tab-A-Vit - PO 1 tab DAILY [facility] Administration Pantoprazole Sodium 40 mg 02/16/18 10:00 02/17/18 10:02 Protonix - PO 40 mg DAILY [facility] Administration Polyethylene Glycol 17 gm 02/16/18 10:00 02/17/18 10:04 Miralax (For Daily Use) - PO 17 grams DAILY [facility] Administration Prednisolone Acetate 1 drop 02/15/18 22:00 02/17/18 21:50 Pred Forte 1% - OU 1 drop QID [facility] Administration Pregabalin 150 mg 02/15/18 22:00 02/18/18 05:09 Lyrica - PO 150 mg TID [facility] Administration Vancomycin HCl 1,000 mg 02/16/18 16:30 02/17/18 16:57 Vancomycin (Pre-Docked) IVPB 1,000 mg DAILY@1630 [facility] Administration Protocol Venlafaxine HCl 100 mg 02/16/18 10:00 02/17/18 13:47 Effexor - PO 100 mg DAILY [facility] Administration Microbiology 02/15/18 19:00 Blood - Peripheral Venous Blood Culture - Preliminary NO GROWTH OBTAINED AFTER 48 HOURS, INCUBATION TO CONTINUE FOR 3 DAYS. 02/15/18 19:00 Blood - Peripheral Venous Blood Culture - Preliminary NO GROWTH OBTAINED AFTER 48 HOURS, INCUBATION TO CONTINUE FOR 3 DAYS. 02/15/18 19:12 Urine - Urine - Catheterized Urine Culture - Final NO GROWTH OBTAINED IMAGING chest xray: no signs of infilirate or effusion EKG: nsr 1st degree av block, left axis deviation ASSESSMENT/PLAN: 1) heme/onc Symptomatic anemia - 3 unit of PRBC 02/15 and 02/17, repeat hgb today 8.8, baseline 10.7, strict monitoring - stool for occult blood negative iron deficiency anemia - iron studies noted, venofer 02/17/18, will require 4 additional doses of venofer Metastatic prostate cancer - On Xgeva monthly - continue home dose morphine sulfate 60mg bid standing with morphine sulfate 10mg q6h for breakthrough pain, medications verfied with [employer] # [id number] - continue lovenox due to hypercoaqulable state, in addition, pt has a history of PE 2)ID fever sepsis - spiked a temp yesterday, no leukocytosis, repeat blood culture, pending wound culture - continue vanc and invanz (02/16-). - ID consulted and following 3) cardiovascular Hx of carotid stenosis - reports the patient has been on Aggrenox for 15 years - Continue Aggrenox 4) endo DM - Levemir 12u sq am - BGM ACHS with ISS ACHS 5) derm stage III decubti - continue alleyn dressing with collaganase - appreciate vascular input 6) F/E/N: - Diabetic diet - replete phos 7) Prophylaxis: - On full dose Lovenox 8) Dispo: - requires inpatient admission CODE STATUS: FULL CODE Visit type - Emergency Visit Emergency Visit: Yes ED Registration Date: 02/18/18 Care time: The patient presented to the Emergency Department on the above date and was hospitalized for further evaluation of their emergent condition. - New Patient This patient is new to me today: No - Critical Care Critical Care patient: No - Discharge Referral Referred to [facility] Med P.C.: No
[2018-02-18] MEDS ORDERED: PT OWN MED DRAWER 7, Y5N ONE ×2 (09:32→21:07)
[2018-02-18 09:42] LABS: ANION GAP 7 (8-16); BLOOD UREA NITROGEN 20 mg/dL (7-18); CALCIUM 7.1 mg/dL (8.5-10.1); CHLORIDE 107 mmol/L (98-107); CO2 26 mmol/L (21-32); CREATININE 0.8 mg/dL (0.7-1.3); GLUCOSE,RANDOM 125 mg/dL (74-106); MAGNESIUM 2.3 mg/dL (1.8-2.4); PHOSPHOROUS 1.4 mg/dL (2.5-4.9); POTASSIUM 4.7 mmol/L (3.5-5.1); SODIUM 140 mmol/L (136-145)
[2018-02-18] MEDS: MULTIVITAMINS (DAILY MVI) TABLET (FP) PO SCH (09:44)
[2018-02-18] MEDS: PANTOPRAZOLE 40 MG TABLET (FP) PO SCH (09:44)
[2018-02-18] MEDS: VENLAFAXINE HCL 25 MG TABLET PO SCH (09:45)
[2018-02-18] MEDS: ASPIRIN/DIPYRIDAMOLE 25 MG/200 MG CAPSULE (FP) PO SCH ×2 (09:48→21:13)
[2018-02-18] MEDS: prednisoLONE ACETATE 1% OPHTH SUSP 5 ML BOTTLE OU SCH ×4 (09:54→21:12)
[2018-02-18] MEDS: POLYETHYLENE GLYCOL 3350 119 GM BTL PO SCH (09:54)
[2018-02-18] MEDS: ENOXAPARIN NA (PORCINE) 80 MG/0.8 ML DISP.SYRIN SQ SCH ×2 (09:54→21:15)
[2018-02-18] MEDS: COLLAGENASE CLOSTRIDIUM HIST. 30 GRAMS TUBE TP SCH (09:55)
[2018-02-18] MEDS: morphine SO4 SUSTAINED ACTING 30 MG TABLET.SA PO SCH ×2 (09:57→21:12)
--- NOTE | 2018-02-18 09:57 | PN ---
Progress Note, Physician History of Present Illness: Awake, alert in bed Spiked temp 102.6 No reports of rigors No focal complaint. Denies chest pain/ dyspnea No c/o dysuria or urinary retention - Current Medication List Current Medications: Active Medications Acetaminophen (Tylenol -) 650 mg PO Q6H PRN PRN Reason: FEVER Last Admin: 02/18/18 05:09 Dose: 650 mg Amino Acids (Prosource No Carb Liquid Pkt) 30 ml PO BID@0800,1730 [facility] Collagenase (Santyl -) 1 applic TP DAILY [facility] Last Admin: 02/17/18 10:05 Dose: 1 applic Dipyridamole/Aspirin (Aggrenox -) 1 combo PO BID [facility] Last Admin: 02/17/18 21:31 Dose: 1 combo Docusate Sodium (Colace -) 300 mg PO HS [facility] Last Admin: 02/17/18 21:31 Dose: 300 mg Enoxaparin Sodium (Lovenox -) 70 mg SQ BID [facility] Last Admin: 02/17/18 21:31 Dose: 70 mg Ertapenem (Invanz (Pre-Docked)) 1 gm IVPB DAILY [facility] Last Admin: 02/17/18 10:19 Dose: 1 gm Sodium Phosphate 21 mm/ Sodium (Chloride) 257 mls @ 62.5 mls/hr IVPB ONCE ONE Stop: 02/18/18 13:52 Insulin Aspart (Novolog Vial Sliding Scale -) 1 vial SQ ACHS [facility] PRN Reason: Protocol Last Admin: 02/18/18 06:48 Dose: Not Given Insulin Detemir (Levemir Vial) 12 units SQ AM [facility] Last Admin: 02/18/18 06:48 Dose: 12 units Morphine Sulfate (Ms Contin -) 60 mg PO BID [facility] Last Admin: 02/17/18 21:32 Dose: 60 mg Morphine Sulfate (Morphine 10 Mg/5 Ml Liquid) 10 mg PO Q6H PRN PRN Reason: PAIN LEVEL 7 - 10 Last Admin: 02/18/18 05:08 Dose: 10 mg Multivitamins/Minerals/Vitamin C (Tab-A-Vit -) 1 tab PO DAILY [facility] Last Admin: 02/17/18 10:02 Dose: 1 tab Pantoprazole Sodium (Protonix -) 40 mg PO DAILY [facility] Last Admin: 02/17/18 10:02 Dose: 40 mg Polyethylene Glycol (Miralax (For Daily Use) -) 17 gm PO DAILY [facility] Last Admin: 02/17/18 10:04 Dose: 17 grams Prednisolone Acetate (Pred Forte 1% -) 1 drop OU QID [facility] Last Admin: 02/17/18 21:50 Dose: 1 drop Pregabalin (Lyrica -) 150 mg PO TID [facility] Last Admin: 02/18/18 05:09 Dose: 150 mg Vancomycin HCl (Vancomycin (Pre-Docked)) 1,000 mg IVPB DAILY@1630 [facility] PRN Reason: Protocol Last Admin: 02/17/18 16:57 Dose: 1,000 mg Venlafaxine HCl (Effexor -) 100 mg PO DAILY [facility] Last Admin: 02/17/18 13:47 Dose: 100 mg - Objective Vital Signs: Vital Signs Temperature 97.4 F L 02/18/18 09:40 Pulse Rate 73 02/18/18 05:00 Respiratory Rate 16 02/18/18 09:40 Blood Pressure 94/38 02/18/18 09:40 O2 Sat by Pulse Oximetry (%) 94 L 02/18/18 08:55 Constitutional: Yes: No Distress, Thin Cardiovascular: Yes: Regular Rate and Rhythm, S1, S2 Respiratory: Yes: Other (+ crepitations, bases) Gastrointestinal: Yes: Normal Bowel Sounds, Soft, Other (soft, no suprapubic tenderness) Edema: Yes Edema: LLE: 1+, RLE: 1+ Wound/Incision: Yes: Other (+ dorsal spine decubitus ulcer with serous drainage) Labs: CBC, BMP 02/18/18 07:10 02/18/18 07:10 INR, PTT INR 1.27 (0.82-1.09) H 02/15/18 16:55 Assessment/Plan Fever ? source Metastatic prostate ca Non- healing back ulcer Hx ESBL UTI repeat Blood c/s , CXR Continue vancomycin/ ertapenem
[2018-02-18] MEDS ORDERED: SODIUM PHOSPHATE - 21 MM in SODIUM CHLORIDE 250 ML IVPB ONE (10:15)
[2018-02-18] MEDS: ERTAPENEM SODIUM 1 GM/50 ML PRE-DOCKED IVPB SCH (10:55)
[2018-02-18] MEDS: CEFEPIME 1 GM in DEXTROSE 5%-WATER 100 ML IVPB SCH ×2 (15:16→18:39)
[2018-02-18] MEDS: VANCOMYCIN 1 GRAM (PRE-DOCKED) 1,000 MG/250 ML BAG IVPB SCH (16:27)
[2018-02-18] MEDS: AMINO ACIDS/PROTEIN HYDROLYS 30 ML LIQUID.PKT PO SCH (16:29)
[2018-02-18] MEDS ORDERED: REFRIGERATED ANITBIOTICS ONE (21:08)
[2018-02-18] MEDS: DOCUSATE SODIUM 100 MG CAPSULE (FP) PO SCH (21:12)
[2018-02-18] MEDS: NAPH,MB-DB/K PH,MBDB POWDER PACKET PO SCH (21:12)
[2018-02-19] MEDS: CEFEPIME 1 GM in DEXTROSE 5%-WATER 100 ML IVPB SCH ×3 (01:59→19:03)
[2018-02-19] MEDS: PREGABALIN 50 MG CAPSULE PO SCH ×3 (05:32→21:39)
[2018-02-19] MEDS: INSULIN SLIDING SCALE (NOVOLOG) 1 VIAL SQ SCH ×4 (06:13→21:40)
[2018-02-19] MEDS: INSULIN DETEMIR 100 UNITS/ML MDV SQ SCH (06:13)
[2018-02-19] MEDS: morphine SULFATE 10 MG/5 ML UNIT-DOSE CUP PO PRN ×3 (06:19→14:10)
[2018-02-19] MEDS: AMINO ACIDS/PROTEIN HYDROLYS 30 ML LIQUID.PKT PO SCH ×2 (07:54→18:48)
[2018-02-19] MEDS: ACETAMINOPHEN 325 MG TABLET (FP) PO PRN (07:55)
--- NOTE | 2018-02-19 08:15 | PN ---
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 Patient was admitted from the emergency department for sepsis and severe anemia. Vital Signs Period Temp Pulse Resp BP Sys/Kim Pulse Ox Last 24 Hr 97.4 F-99.8 F 70-79 16-20 94-125/38-67 94-99 GENERAL: The patient is awake, alert, and fully oriented, in no acute distress. HEAD: Normal with no signs of trauma. EYES: PERRL, extraocular movements intact, sclera anicteric, conjunctiva clear. No ptosis. ENT: Ears normal, nares patent, oropharynx clear without exudates, moist mucous membranes. NECK: Trachea midline, full range of motion, supple. LUNGS: Breath sounds equal, course rhonchi to apexes, diminished to bases, no wheezes, no crackles, no accessory muscle use. HEART: Regular rate and rhythm, S1, S2 without murmur, rub or gallop. ABDOMEN: Soft, nontender, nondistended, normoactive bowel sounds, no guarding, no rebound, no hepatosplenomegaly, no masses. EXTREMITIES: 2+ pulses, warm, well-perfused, no edema. NEUROLOGICAL: Cranial nerves II through XII grossly intact. Normal speech, gait not observed. PSYCH: Normal mood, normal affect. SKIN: Warm, dry, normal turgor, no rashes or lesions noted, stage III decubti to lumbar spine Laboratory Results - last 24 hr CBC WBC 5.8 K/mm3 (4.0-10.8) 02/19/18 07:35 RBC 2.77 M/mm3 (4.00-5.60) L 02/19/18 07:35 Hgb 8.7 GM/dl (11.7-16.9) L 02/19/18 07:35 Hct 25.7 % (35.4-49) L 02/19/18 07:35 MCV 92.8 fl (80-96) 02/19/18 07:35 MCH 31.5 pg (25.7-33.7) 02/19/18 07:35 MCHC 33.9 g/dl (32.0-35.9) 02/19/18 07:35 RDW 18.9 % (11.9-15.9) H 02/19/18 07:35 Plt Count 203 K/MM3 (134-434) 02/19/18 07:35 MPV 7.3 fl (7.5-11.1) L D 02/19/18 07:35 Neutrophils % 75.5 % (42.8-82.8) 02/19/18 07:35 Lymphocytes % 11.0 % (8-40) 02/19/18 07:35 Monocytes % 10.0 % (3.8-10.2) 02/19/18 07:35 Eosinophils % 3.2 % (0-4.5) 02/19/18 07:35 Basophils % 0.3 % (0-2.0) 02/19/18 07:35 Platelet Estimate Adequate 02/17/18 17:50 Platelet Comment Rare giant plts 02/15/18 16:55 Polychromasia 1+ 02/15/18 16:55 Poikilocytosis 1+ 02/15/18 16:55 Anisocytosis 2+ 02/17/18 17:50 Macrocytosis 1+ 02/15/18 16:55 Tear Drop Cells 1+ 02/17/18 17:50 Ovalocytes Rare 02/15/18 16:55 CMP Sodium 134 mmol/L (136-145) L 02/19/18 07:35 Potassium 4.9 mmol/L (3.5-5.1) D 02/19/18 07:35 Chloride 108 mmol/L (98-107) H 02/19/18 07:35 Carbon Dioxide 24 mmol/L (22-28) 02/19/18 07:35 Anion Gap 2 (8-16) L 02/19/18 07:35 BUN 19 mg/dl (7-18) H 02/19/18 07:35 Creatinine 0.8 mg/dl (0.6-1.3) 02/19/18 07:35 Creat Clearance w eGFR > 60 (>60) 02/17/18 07:01 POC Glucometer 117 UNITS (80-120) 02/19/18 05:35 Random Glucose 110 mg/dl (74-106) H 02/19/18 07:35 Lactic Acid 0.9 mmol/L (0.0-2.0) 02/15/18 19:10 Calcium 7.0 mg/dl (8.4-10.2) L 02/19/18 07:35 Phosphorus 1.3 mg/dl (2.5-4.6) L 02/19/18 07:35 Magnesium 1.9 mg/dL (1.8-2.4) 02/19/18 07:35 Total Bilirubin < 0.5 mg/dl (0.2-1.0) 02/17/18 07:01 AST 14 U/L (10-42) 02/17/18 07:01 ALT 9 U/L (10-40) L 02/17/18 07:01 Alkaline Phosphatase 121 U/L (32-92) H 02/17/18 07:01 Troponin I 0.03 ng/ml (0.00-0.06) 02/15/18 16:55 Total Protein 5.6 g/dl (6.4-8.3) L 02/17/18 07:01 Albumin 2.0 g/dl (3.5-5.0) L 02/17/18 07:01 Active Medications Generic Name Dose Route Start Last Admin Trade Name Sujey PRN Reason Stop Dose Admin Acetaminophen 650 mg 02/16/18 16:32 02/19/18 07:55 Tylenol - PO 650 mg Q6H PRN Administration FEVER Amino Acids 30 ml 02/18/18 17:30 02/19/18 07:54 Prosource No Carb Liquid Pkt PO 30 ml BID@0800,1730 [facility] Administration Collagenase 1 applic 02/16/18 10:00 02/18/18 09:55 Santyl - TP 1 applic DAILY [facility] Administration Dipyridamole/Aspirin 1 combo 02/16/18 10:00 02/18/18 21:13 Aggrenox - PO 1 combo BID [facility] Administration Docusate Sodium 300 mg 02/15/18 22:00 02/18/18 21:12 Colace - PO 300 mg HS [facility] Administration Enoxaparin Sodium 70 mg 02/16/18 07:59 02/18/18 21:15 Lovenox - SQ 70 mg BID [facility] Administration Cefepime HCl 1 gm/ Dextrose 100 mls @ 100 mls/hr 02/18/18 15:00 02/19/18 01: 59 IVPB 100 mls/hr Q8H-IV [facility] Administration Protocol Insulin Aspart 1 vial 02/16/18 22:00 02/19/18 06:13 Novolog Vial Sliding Scale - SQ Not Given ACHS [facility] Protocol Insulin Detemir 12 units 02/16/18 07:00 02/19/18 06:13 Levemir Vial SQ 12 units AM [facility] Administration Lactobacillus Acidophilus 1 tab 02/19/18 10:00 Bacid - PO DAILY [facility] Morphine Sulfate 60 mg 02/15/18 22:00 02/18/18 21:12 Ms Contin - PO 60 mg BID [facility] Administration Morphine Sulfate 10 mg 02/19/18 07:49 02/19/18 07:53 Morphine 10 Mg/5 Ml Liquid PO 10 mg Q2H PRN Administration PAIN LEVEL 7 - 10 Multivitamins/Minerals/Vitamin C 1 tab 02/16/18 10:00 02/18/18 09:44 Tab-A-Vit - PO 1 tab DAILY [facility] Administration Pantoprazole Sodium 40 mg 02/16/18 10:00 02/18/18 09:44 Protonix - PO 40 mg DAILY [facility] Administration Polyethylene Glycol 17 gm 02/16/18 10:00 02/18/18 09:54 Miralax (For Daily Use) - PO 17 grams DAILY [facility] Administration Potassium Phos/Sodium Phos 1 packet 02/18/18 22:00 02/18/18 21:12 Phos-Nak Packet - PO 1 packet BID [facility] Administration Prednisolone Acetate 1 drop 02/15/18 22:00 02/18/18 21:12 Pred Forte 1% - OU 1 drop QID [facility] Administration Pregabalin 150 mg 02/15/18 22:00 02/19/18 05:32 Lyrica - PO 150 mg TID [facility] Administration Vancomycin HCl 1,000 mg 02/16/18 16:30 02/18/18 16:27 Vancomycin (Pre-Docked) IVPB 1,000 mg DAILY@1630 [facility] Administration Protocol Venlafaxine HCl 100 mg 02/16/18 10:00 02/18/18 09:45 Effexor - PO 100 mg DAILY [facility] Administration Microbiology 02/16/18 16:30 Ulcer Gram Stain - Final 02/16/18 16:30 Ulcer Wound Culture - Preliminary Presumptive Ps Aeruginosa Non Lactose Fermenting Gnb Staphylococcus Species Group D Strep Or Entero Coccus 02/15/18 19:00 Blood - Peripheral Venous Blood Culture - Preliminary NO GROWTH OBTAINED AFTER 72 HOURS, INCUBATION TO CONTINUE FOR 2 DAYS. 02/15/18 19:00 Blood - Peripheral Venous Blood Culture - Preliminary NO GROWTH OBTAINED AFTER 72 HOURS, INCUBATION TO CONTINUE FOR 2 DAYS. 02/15/18 19:12 Urine - Urine - Catheterized Urine Culture - Final NO GROWTH OBTAINED ASSESSMENT/PLAN: IMAGING chest xray: no signs of infilirate or effusion EKG: nsr 1st degree av block, left axis deviation ASSESSMENT/PLAN: 1) heme/onc Symptomatic anemia - a total of 3 unit of PRBC 02/15 and 02/17, repeat hgb today 8.7, baseline 10.7 , strict monitoring - stool for occult blood negative iron deficiency anemia - iron studies noted, venofer 02/17/18, 02/19/18 will require 3 additional doses of venofer Metastatic prostate cancer - On Xgeva monthly - continue home dose morphine sulfate 60mg bid standing with morphine sulfate 10mg q2h for breakthrough pain, medications verfied with [facility] [employer] # [id number] - continue lovenox due to hypercoaqulable state, in addition, pt has a history of PE 2)ID fever sepsis - low grade temp noted, no leukocytosis, pending repeat blood culture, wound culture notable for presum psedomonas - continue vanc (02/16-) and cefepime (02/19-) and invanz (02/16-02/18). - ID consulted and following 3) cardiovascular Hx of carotid stenosis - reports the patient has been on Aggrenox for 15 years - Continue Aggrenox 4) endo DM - Levemir 12u sq am - BGM ACHS with ISS ACHS 5) derm stage III decubti - continue alleyn dressing with collaganase - appreciate vascular input 6) F/E/N: - Diabetic diet - replete phos-->naphos gtt ordered, with po phos-nak packet BID 7) Prophylaxis: - On full dose Lovenox 8) Dispo: - requires inpatient admission CODE STATUS: FULL CODE Visit type - Emergency Visit Emergency Visit: Yes ED Registration Date: 02/18/18 Care time: The patient presented to the Emergency Department on the above date and was hospitalized for further evaluation of their emergent condition. - New Patient This patient is new to me today: No - Critical Care Critical Care patient: No - Discharge Referral Referred to [facility] Med P.C.: No
[2018-02-19 08:39] LABS: BASO % 0.3 % (0-2.0); EOS % 3.2 % (0-4.5); HEMATOCRIT 25.7 % (35.4-49); HEMOGLOBIN 8.7 GM/dl (11.7-16.9); MCH 31.5 pg (25.7-33.7); MCHC 33.9 g/dl (32.0-35.9); MEAN CELL VOLUME 92.8 fl (80-96); MEAN PLT VOLUME 7.3 fl (7.5-11.1); NEUT % 75.5 % (42.8-82.8); PLATELET COUNT 203 K/MM3 (134-434); RBC 2.77 M/mm3 (4.00-5.60); RDW 18.9 % (11.9-15.9); WHITE BLOOD COUNT 5.8 K/mm3 (4.0-10.8)
[2018-02-19 08:46] LABS: ANION GAP 2 (8-16); BLOOD UREA NITROGEN 19 mg/dl (7-18); CHLORIDE 108 mmol/L (98-107); CO2 24 mmol/L (22-28); CREATININE 0.8 mg/dl (0.6-1.3); GLUCOSE,RANDOM 110 mg/dl (74-106); MAGNESIUM 1.9 mg/dL (1.8-2.4); PHOSPHOROUS 1.3 mg/dl (2.5-4.6); POTASSIUM 4.9 mmol/L (3.5-5.1); SODIUM 134 mmol/L (136-145)
[2018-02-19] MEDS ORDERED: PT OWN MED DRAWER 7, Y5N ONE ×4 (09:17→21:21)
[2018-02-19] MEDS: ENOXAPARIN NA (PORCINE) 80 MG/0.8 ML DISP.SYRIN SQ SCH ×2 (09:46→21:38)
[2018-02-19] MEDS: NAPH,MB-DB/K PH,MBDB POWDER PACKET PO SCH ×2 (09:47→21:40)
[2018-02-19] MEDS: morphine SO4 SUSTAINED ACTING 30 MG TABLET.SA PO SCH ×2 (09:47→21:39)
[2018-02-19] MEDS: MULTIVITAMINS (DAILY MVI) TABLET (FP) PO SCH (09:47)
[2018-02-19] MEDS: POLYETHYLENE GLYCOL 3350 119 GM BTL PO SCH (09:47)
[2018-02-19] MEDS: prednisoLONE ACETATE 1% OPHTH SUSP 5 ML BOTTLE OU SCH ×4 (09:48→22:00)
[2018-02-19] MEDS: LACTOBACILLUS ACIDOPHILUS 1 TABLET PO SCH (09:48)
[2018-02-19] MEDS: PANTOPRAZOLE 40 MG TABLET (FP) PO SCH (09:48)
[2018-02-19] MEDS: ASPIRIN/DIPYRIDAMOLE 25 MG/200 MG CAPSULE (FP) PO SCH ×2 (09:50→21:38)
[2018-02-19] MEDS: VENLAFAXINE HCL 25 MG TABLET PO SCH (09:50)
[2018-02-19] MEDS ORDERED: IRON SUCROSE INJECTION 200 MG in SODIUM CHLORIDE 100 ML IVPB ONE (10:30)
[2018-02-19] MEDS: COLLAGENASE CLOSTRIDIUM HIST. 30 GRAMS TUBE TP SCH (10:32)
[2018-02-19] MEDS ORDERED: SODIUM PHOSPHATE - 21 MM in SODIUM CHLORIDE 250 ML IVPB ONE (11:00)
--- NOTE | 2018-02-19 11:57 | PN ---
Progress Note, Physician History of Present Illness: Awake, alert in bed Low grade temp C/O pain at area of dorsal spine wound No reports of rigors. No c/o fever/ chills Denies chest pain/ dyspnea No c/o dysuria or urinary retention Wound c/s mixed aisha - Current Medication List Current Medications: Active Medications Acetaminophen (Tylenol -) 650 mg PO Q6H PRN PRN Reason: FEVER Last Admin: 02/19/18 07:55 Dose: 650 mg Amino Acids (Prosource No Carb Liquid Pkt) 30 ml PO BID@0800,1730 [facility] Last Admin: 02/19/18 07:54 Dose: 30 ml Collagenase (Santyl -) 1 applic TP DAILY [facility] Last Admin: 02/19/18 10:32 Dose: 1 applic Dipyridamole/Aspirin (Aggrenox -) 1 combo PO BID [facility] Last Admin: 02/19/18 09:50 Dose: 1 combo Docusate Sodium (Colace -) 300 mg PO HS [facility] Last Admin: 02/18/18 21:12 Dose: 300 mg Enoxaparin Sodium (Lovenox -) 70 mg SQ BID [facility] Last Admin: 02/19/18 09:46 Dose: 70 mg Cefepime HCl 1 gm/ Dextrose 100 mls @ 100 mls/hr IVPB Q8H-IV [facility] PRN Reason: Protocol Last Admin: 02/19/18 09:46 Dose: 100 mls/hr Sodium Phosphate 21 mm/ Sodium (Chloride) 257 mls @ 51.4 mls/hr IVPB ONCE ONE Stop: 02/19/18 15:59 Insulin Aspart (Novolog Vial Sliding Scale -) 1 vial SQ ACHS [facility] PRN Reason: Protocol Last Admin: 02/19/18 06:13 Dose: Not Given Insulin Detemir (Levemir Vial) 12 units SQ AM [facility] Last Admin: 02/19/18 06:13 Dose: 12 units Lactobacillus Acidophilus (Bacid -) 1 tab PO DAILY [facility] Last Admin: 02/19/18 09:48 Dose: 1 tab Morphine Sulfate (Ms Contin -) 60 mg PO BID [facility] Last Admin: 02/19/18 09:47 Dose: 60 mg Morphine Sulfate (Morphine 10 Mg/5 Ml Liquid) 10 mg PO Q2H PRN PRN Reason: PAIN LEVEL 7 - 10 Last Admin: 02/19/18 07:53 Dose: 10 mg Multivitamins/Minerals/Vitamin C (Tab-A-Vit -) 1 tab PO DAILY [facility] Last Admin: 02/19/18 09:47 Dose: 1 tab Pantoprazole Sodium (Protonix -) 40 mg PO DAILY [facility] Last Admin: 02/19/18 09:48 Dose: 40 mg Polyethylene Glycol (Miralax (For Daily Use) -) 17 gm PO DAILY [facility] Last Admin: 02/19/18 09:47 Dose: 17 grams Potassium Phos/Sodium Phos (Phos-Nak Packet -) 1 packet PO BID [facility] Last Admin: 02/19/18 09:47 Dose: 1 packet Prednisolone Acetate (Pred Forte 1% -) 1 drop OU QID [facility] Last Admin: 02/19/18 09:48 Dose: 1 drop Pregabalin (Lyrica -) 150 mg PO TID [facility] Last Admin: 02/19/18 05:32 Dose: 150 mg Vancomycin HCl (Vancomycin (Pre-Docked)) 1,000 mg IVPB DAILY@1630 [facility] PRN Reason: Protocol Last Admin: 02/18/18 16:27 Dose: 1,000 mg Venlafaxine HCl (Effexor -) 100 mg PO DAILY [facility] Last Admin: 02/19/18 09:50 Dose: 100 mg - Objective Vital Signs: Vital Signs Temperature 98.7 F 02/19/18 06:00 Pulse Rate 79 02/19/18 06:00 Respiratory Rate 20 02/19/18 06:00 Blood Pressure 114/51 02/19/18 06:00 O2 Sat by Pulse Oximetry (%) 99 02/19/18 06:00 Constitutional: Yes: No Distress, Thin Cardiovascular: Yes: Regular Rate and Rhythm, S1, S2 Respiratory: Yes: CTA Bilaterally Gastrointestinal: Yes: Normal Bowel Sounds, Soft. No: Tenderness Edema: No Integumentary: Yes: Other (+ approx 3cm ulcer over thoracic spine No wound drainage) Labs: CBC, BMP 02/19/18 07:35 02/19/18 07:35 INR, PTT INR 1.27 (0.82-1.09) H 02/15/18 16:55 Assessment/Plan Fever ? source ? back wound Metastatic prostate ca Non- healing back ulcer Hx ESBL UTI Repeat Blood c/s , CXR (-) Continue vancomycin Cefepime substituted based on wound c/s Discussed with at bedside
[2018-02-19] MEDS: KETOROLAC TROMETHAMINE 0.5% 5 ML BOTTLE OPTHALMIC OU SCH ×2 (18:48→21:59)
[2018-02-19] MEDS: VANCOMYCIN 1 GRAM (PRE-DOCKED) 1,000 MG/250 ML BAG IVPB SCH (18:48)
[2018-02-19] MEDS: DOCUSATE SODIUM 100 MG CAPSULE (FP) PO SCH (21:38)
[2018-02-20] MEDS: CEFEPIME 1 GM in DEXTROSE 5%-WATER 100 ML IVPB SCH (01:06)
[2018-02-20] MEDS: PREGABALIN 50 MG CAPSULE PO SCH ×3 (06:25→21:32)
[2018-02-20] MEDS: INSULIN SLIDING SCALE (NOVOLOG) 1 VIAL SQ SCH ×2 (06:25→18:10)
[2018-02-20] MEDS: INSULIN DETEMIR 100 UNITS/ML MDV SQ SCH (06:28)
[2018-02-20] MEDS ORDERED: PT OWN MED DRAWER 7, Y5N ONE ×3 (07:30→21:09)
--- NOTE | 2018-02-20 07:50 | PN ---
Progress Note (short form) - Note Progress Note: WOUND CARE CONSULT - Marcell Glez Called to eval 88 yo male admitted to [facility] with multiple medical problems. Patient is recently started going to see Dr. Glez at [facility] as of 02/04/18 for wound on mid/upper back. Per patient's , wound size is unchanged compared to a few weeks ago. PE Back: evidence of wound contracture. ~ 3 x 2.54 cm. Fibrinous slough to base of wound. No foul odor. No undermining. No purulent drainage. Problem List - Problems (1) Pressure ulcer, back, upper Assessment/Plan: [place] application of Santyl to wound. Cover with 4x4 and tape Offload all pressure sensitive areas. Frequent repositioning. No surgical debridement needed. Cont medical management. On behalf of Dr. Glez, thank you for the opportunity to participate in your patient's care Code(s): L89.109 - PRESSURE ULCER OF UNSP PART OF BACK, UNSPECIFIED STAGE
--- NOTE | 2018-02-20 07:52 | PN ---
Physical Exam: SUBJECTIVE: Patient seen and examined, resting comfortably in bed, reports pain to back, (Vanessa) at bedside. 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 Patient was admitted from the emergency department for sepsis secondary to polymicrobial decubiti and severe anemia. Vital Signs Period Temp Pulse Resp BP Sys/Kim Pulse Ox Last 24 Hr 98.1 F-99.0 F 72-76 18-20 98-112/41-48 95-95 GENERAL: The patient is awake, alert, and fully oriented, in no acute distress. HEAD: Normal with no signs of trauma. EYES: PERRL, extraocular movements intact, sclera anicteric, conjunctiva clear. No ptosis. ENT: Ears normal, nares patent, oropharynx clear without exudates, moist mucous membranes. NECK: Trachea midline, full range of motion, supple. LUNGS: Breath sounds equal, course rhonchi to apexes, diminished to bases, no wheezes, no crackles, no accessory muscle use. HEART: Regular rate and rhythm, S1, S2 without murmur, rub or gallop. ABDOMEN: Soft, nontender, nondistended, normoactive bowel sounds, no guarding, no rebound, no hepatosplenomegaly, no masses. EXTREMITIES: 2+ pulses, warm, well-perfused, no edema. NEUROLOGICAL: Cranial nerves II through XII grossly intact. Normal speech, gait not observed. PSYCH: Normal mood, normal affect. SKIN: Warm, dry, normal turgor, no rashes or lesions noted, stage III decubti 2.5 x 2.5 cm to lumbar spine Laboratory Results - last 24 hr CBC WBC 5.6 K/mm3 (4.0-10.8) 02/20/18 12:37 RBC 2.82 M/mm3 (4.00-5.60) L 02/20/18 12:37 Hgb 8.9 GM/dl (11.7-16.9) L 02/20/18 12:37 Hct 26.4 % (35.4-49) L 02/20/18 12:37 MCV 93.4 fl (80-96) 02/20/18 12:37 MCH 31.7 pg (25.7-33.7) 02/20/18 12:37 MCHC 33.9 g/dl (32.0-35.9) 02/20/18 12:37 RDW 18.6 % (11.9-15.9) H 02/20/18 12:37 Plt Count 198 K/MM3 (134-434) 02/20/18 12:37 MPV 6.9 fl (7.5-11.1) L 02/20/18 12:37 Neutrophils % 73.9 % (42.8-82.8) 02/20/18 12:37 Lymphocytes % 11.2 % (8-40) 02/20/18 12:37 Monocytes % 10.6 % (3.8-10.2) H 02/20/18 12:37 Eosinophils % 3.8 % (0-4.5) 02/20/18 12:37 Basophils % 0.5 % (0-2.0) 02/20/18 12:37 Platelet Estimate Adequate 02/17/18 17:50 Platelet Comment Rare giant plts 02/15/18 16:55 Polychromasia 1+ 02/15/18 16:55 Poikilocytosis 1+ 02/15/18 16:55 Anisocytosis 2+ 02/17/18 17:50 Macrocytosis 1+ 02/15/18 16:55 Tear Drop Cells 1+ 02/17/18 17:50 Ovalocytes Rare 02/15/18 16:55 CMP Sodium 134 mmol/L (136-145) L 02/19/18 07:35 Potassium 4.9 mmol/L (3.5-5.1) D 02/19/18 07:35 Chloride 108 mmol/L (98-107) H 02/19/18 07:35 Carbon Dioxide 24 mmol/L (22-28) 02/19/18 07:35 Anion Gap 2 (8-16) L 02/19/18 07:35 BUN 19 mg/dl (7-18) H 02/19/18 07:35 Creatinine 0.8 mg/dl (0.6-1.3) 02/19/18 07:35 Creat Clearance w eGFR > 60 (>60) 05/14/18 07:01 POC Glucometer 89 UNITS (80-120) 02/20/18 06:23 Random Glucose 110 mg/dl (74-106) H 02/19/18 07:35 Lactic Acid 0.9 mmol/L (0.0-2.0) 02/15/18 19:10 Calcium 7.0 mg/dl (8.4-10.2) L 02/19/18 07:35 Phosphorus 1.3 mg/dl (2.5-4.6) L 02/19/18 07:35 Magnesium 1.9 mg/dL (1.8-2.4) 02/19/18 07:35 Total Bilirubin < 0.5 mg/dl (0.2-1.0) 02/17/18 07:01 AST 14 U/L (10-42) 02/17/18 07:01 ALT 9 U/L (10-40) L 02/17/18 07:01 Alkaline Phosphatase 121 U/L (32-92) H 02/17/18 07:01 Troponin I 0.03 ng/ml (0.00-0.06) 02/15/18 16:55 Total Protein 5.6 g/dl (6.4-8.3) L 02/17/18 07:01 Albumin 2.0 g/dl (3.5-5.0) L 02/17/18 07:01 Active Medications Generic Name Dose Route Start Last Admin Trade Name Freq PRN Reason Stop Dose Admin Acetaminophen 650 mg 02/16/18 16:32 02/19/18 07:55 Tylenol - PO 650 mg Q6H PRN Administration FEVER Amino Acids 30 ml 02/18/18 17:30 02/19/18 18:48 Prosource No Carb Liquid Pkt PO 30 ml BID@0800,1730 [facility] Administration Collagenase 1 applic 02/16/18 10:00 02/19/18 10:32 Santyl - TP 1 applic DAILY [facility] Administration Dipyridamole/Aspirin 1 combo 02/16/18 10:00 02/19/18 21:38 Aggrenox - PO 1 combo BID [facility] Administration Docusate Sodium 300 mg 02/15/18 22:00 02/19/18 21:38 Colace - PO 300 mg HS [facility] Administration Enoxaparin Sodium 70 mg 02/16/18 07:59 02/19/18 21:38 Lovenox - SQ 70 mg BID [facility] Administration Cefepime HCl 1 gm in 50 mls @ 100 mls/hr 02/20/18 07:44 Maxipime 1 Gm Premix Ivpb IVPB Q8H-IV [facility] Protocol Insulin Aspart 1 vial 02/16/18 22:00 02/20/18 06:25 Novolog Vial Sliding Scale - SQ Not Given ACHS [facility] Protocol Insulin Detemir 12 units 02/16/18 07:00 02/20/18 06:28 Levemir Vial SQ 12 units AM [facility] Administration Ketorolac Tromethamine 1 drop 02/19/18 18:00 02/19/18 21:59 Ketorolac Tromethamine OU 1 drop QID [facility] Administration Lactobacillus Acidophilus 1 tab 02/19/18 10:00 02/19/18 09:48 Bacid - PO 1 tab DAILY [facility] Administration Morphine Sulfate 60 mg 02/15/18 22:00 02/19/18 21:39 Ms Contin - PO 60 mg BID [facility] Administration Morphine Sulfate 10 mg 02/19/18 07:49 02/20/18 00:00 Morphine 10 Mg/5 Ml Liquid PO 10 mg Q2H PRN Administration PAIN LEVEL 7 - 10 Multivitamins/Minerals/Vitamin C 1 tab 02/16/18 10:00 02/19/18 09:47 Tab-A-Vit - PO 1 tab DAILY [facility] Administration Pantoprazole Sodium 40 mg 02/16/18 10:00 02/19/18 09:48 Protonix - PO 40 mg DAILY [facility] Administration Polyethylene Glycol 17 gm 02/16/18 10:00 02/19/18 09:47 Miralax (For Daily Use) - PO 17 grams DAILY [facility] Administration Potassium Phos/Sodium Phos 1 packet 02/18/18 22:00 02/19/18 21:40 Phos-Nak Packet - PO 1 packet BID [facility] Administration Prednisolone Acetate 1 drop 02/15/18 22:00 02/19/18 22:00 Pred Forte 1% - OU 1 drop QID [facility] Administration Pregabalin 150 mg 02/15/18 22:00 02/20/18 06:25 Lyrica - PO 150 mg TID [facility] Administration Vancomycin HCl 1,000 mg 02/16/18 16:30 02/19/18 18:48 Vancomycin (Pre-Docked) IVPB 1,000 mg DAILY@1630 [facility] Administration Protocol Venlafaxine HCl 100 mg 02/16/18 10:00 02/19/18 09:50 Effexor - PO 100 mg DAILY [facility] Administration Microbiology 02/18/18 11:40 Blood - Peripheral Venous Blood Culture - Preliminary NO GROWTH OBTAINED AFTER 48 HOURS, INCUBATION TO CONTINUE FOR 3 DAYS. 02/18/18 11:40 Blood - Peripheral Venous Blood Culture - Preliminary NO GROWTH OBTAINED AFTER 48 HOURS, INCUBATION TO CONTINUE FOR 3 DAYS. 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 02/15/18 19:00 Blood - Peripheral Venous Blood Culture - Preliminary NO GROWTH OBTAINED AFTER 96 HOURS, INCUBATION TO CONTINUE FOR 1 DAYS. 02/15/18 19:12 Urine - Urine - Catheterized Urine Culture - Final NO GROWTH OBTAINED IMAGING chest xray: no signs of infilirate or effusion EKG: nsr 1st degree av block, left axis deviation ASSESSMENT/PLAN: 1) heme/onc Symptomatic anemia - a total of 3 unit of PRBC 02/15 and 02/17, repeat hgb today 8.9, baseline 10.7 , strict monitoring - stool for occult blood negative iron deficiency anemia - iron studies noted, venofer 02/17/18, 02/19/18 will require 3 additional doses of venofer Metastatic prostate cancer - On Xgeva monthly - continue home dose morphine sulfate 60mg bid standing with morphine sulfate 10mg q2h for breakthrough pain, medications verfied with [employer] # [id number] - continue lovenox due to hypercoaqulable state, in addition, pt has a history of PE 2)ID fever sepsis - low grade temp noted, no leukocytosis, repeat blood culture negative to date , wound culture notable for polymicrobe - continue vanc (02/16-) and cefepime (02/19-) and invanz (02/16-02/18). - ID consulted and following 3) cardiovascular Hx of carotid stenosis - reports the patient has been on Aggrenox for 15 years - Continue Aggrenox 4) endo DM - Levemir 12u sq am - BGM ACHS with ISS ACHS 5) derm stage III decubti - continue 4 x4 dressing with collaganase - vascular consulted and following input 6) F/E/N: - Diabetic diet - replete phosph, naphos gtt ordered 7) Prophylaxis: - On full dose Lovenox 8) Dispo: - requires inpatient admission CODE STATUS: DNI Visit type - Emergency Visit Emergency Visit: Yes ED Registration Date: 02/18/18 Care time: The patient presented to the Emergency Department on the above date and was hospitalized for further evaluation of their emergent condition. - New Patient This patient is new to me today: No - Critical Care Critical Care patient: No - Discharge Referral Referred to [facility] Med P.C.: No
[2018-02-20] MEDS: ACETAMINOPHEN 325 MG TABLET (FP) PO PRN (09:59)
[2018-02-20] MEDS: PANTOPRAZOLE 40 MG TABLET (FP) PO SCH (10:00)
[2018-02-20] MEDS: MULTIVITAMINS (DAILY MVI) TABLET (FP) PO SCH (10:00)
[2018-02-20] MEDS: NAPH,MB-DB/K PH,MBDB POWDER PACKET PO SCH ×2 (10:00→21:34)
[2018-02-20] MEDS: morphine SO4 SUSTAINED ACTING 30 MG TABLET.SA PO SCH ×2 (10:00→21:33)
[2018-02-20] MEDS: ASPIRIN/DIPYRIDAMOLE 25 MG/200 MG CAPSULE (FP) PO SCH ×2 (10:01→21:33)
[2018-02-20] MEDS: LACTOBACILLUS ACIDOPHILUS 1 TABLET PO SCH (10:01)
[2018-02-20] MEDS: VENLAFAXINE HCL 25 MG TABLET PO SCH (10:01)
[2018-02-20] MEDS: AMINO ACIDS/PROTEIN HYDROLYS 30 ML LIQUID.PKT PO SCH ×2 (10:01→18:10)
[2018-02-20] MEDS: ENOXAPARIN NA (PORCINE) 80 MG/0.8 ML DISP.SYRIN SQ SCH ×2 (10:02→21:34)
[2018-02-20] MEDS: KETOROLAC TROMETHAMINE 0.5% 5 ML BOTTLE OPTHALMIC OU SCH ×4 (10:02→21:34)
[2018-02-20] MEDS: prednisoLONE ACETATE 1% OPHTH SUSP 5 ML BOTTLE OU SCH ×4 (10:03→21:34)
[2018-02-20] MEDS: CEFEPIME HCL/D5W 1 GM/50 ML BAG IVPB SCH ×2 (10:03→18:10)
[2018-02-20] MEDS: POLYETHYLENE GLYCOL 3350 119 GM BTL PO SCH (10:03)
[2018-02-20] MEDS: COLLAGENASE CLOSTRIDIUM HIST. 30 GRAMS TUBE TP SCH (10:04)
--- NOTE | 2018-02-20 10:18 | PN ---
Progress Note, Physician History of Present Illness: Awake, alert in bed Denies fever/ chills C/O pain at area of dorsal spine wound No c/o dysuria or urinary retention - Current Medication List Current Medications: Active Medications Acetaminophen (Tylenol -) 650 mg PO Q6H PRN PRN Reason: FEVER Last Admin: 02/20/18 09:59 Dose: 650 mg Amino Acids (Prosource No Carb Liquid Pkt) 30 ml PO BID@0800,1730 [facility] Last Admin: 02/20/18 10:01 Dose: 30 ml Collagenase (Santyl -) 1 applic TP DAILY [facility] Last Admin: 02/20/18 10:04 Dose: 1 applic Dipyridamole/Aspirin (Aggrenox -) 1 combo PO BID [facility] Last Admin: 02/20/18 10:01 Dose: 1 combo Docusate Sodium (Colace -) 300 mg PO HS [facility] Last Admin: 02/19/18 21:38 Dose: 300 mg Enoxaparin Sodium (Lovenox -) 70 mg SQ BID [facility] Last Admin: 02/20/18 10:02 Dose: 70 mg Cefepime HCl (Maxipime 1 Gm Premix Ivpb) 1 gm in 50 mls @ 100 mls/hr IVPB Q8H- IV [facility] PRN Reason: Protocol Last Admin: 02/20/18 10:03 Dose: 100 mls/hr Insulin Aspart (Novolog Vial Sliding Scale -) 1 vial SQ ACHS [facility] PRN Reason: Protocol Last Admin: 02/20/18 06:25 Dose: Not Given Insulin Detemir (Levemir Vial) 12 units SQ AM [facility] Last Admin: 02/20/18 06:28 Dose: 12 units Ketorolac Tromethamine (Ketorolac Tromethamine) 1 drop OU QID [facility] Last Admin: 02/20/18 10:02 Dose: 1 drop Lactobacillus Acidophilus (Bacid -) 1 tab PO DAILY [facility] Last Admin: 02/20/18 10:01 Dose: 1 tab Morphine Sulfate (Ms Contin -) 60 mg PO BID [facility] Last Admin: 02/20/18 10:00 Dose: 60 mg Morphine Sulfate (Morphine 10 Mg/5 Ml Liquid) 10 mg PO Q2H PRN PRN Reason: PAIN LEVEL 7 - 10 Last Admin: 02/20/18 00:00 Dose: 10 mg Multivitamins/Minerals/Vitamin C (Tab-A-Vit -) 1 tab PO DAILY [facility] Last Admin: 02/20/18 10:00 Dose: 1 tab Pantoprazole Sodium (Protonix -) 40 mg PO DAILY [facility] Last Admin: 02/20/18 10:00 Dose: 40 mg Polyethylene Glycol (Miralax (For Daily Use) -) 17 gm PO DAILY [facility] Last Admin: 02/20/18 10:03 Dose: Not Given Potassium Phos/Sodium Phos (Phos-Nak Packet -) 1 packet PO BID [facility] Last Admin: 02/20/18 10:00 Dose: 1 packet Prednisolone Acetate (Pred Forte 1% -) 1 drop OU QID [facility] Last Admin: 02/20/18 10:03 Dose: 1 drop Pregabalin (Lyrica -) 150 mg PO TID [facility] Last Admin: 02/20/18 06:25 Dose: 150 mg Vancomycin HCl (Vancomycin (Pre-Docked)) 1,000 mg IVPB DAILY@1630 [facility] PRN Reason: Protocol Last Admin: 02/19/18 18:48 Dose: 1,000 mg Venlafaxine HCl (Effexor -) 100 mg PO DAILY [facility] Last Admin: 02/20/18 10:01 Dose: 100 mg - Objective Vital Signs: Vital Signs Temperature 99.0 F 02/20/18 05:48 Pulse Rate 76 02/20/18 05:48 Respiratory Rate 20 02/20/18 05:48 Blood Pressure 108/45 02/20/18 05:48 O2 Sat by Pulse Oximetry (%) 97 02/20/18 08:23 Constitutional: Yes: No Distress Cardiovascular: Yes: Regular Rate and Rhythm, S1, S2 Respiratory: Yes: CTA Bilaterally Gastrointestinal: Yes: Normal Bowel Sounds, Soft. No: Tenderness Labs: CBC, BMP 02/19/18 07:35 02/19/18 07:35 INR, PTT INR 1.27 (0.82-1.09) H 02/15/18 16:55 Assessment/Plan Fever ? source ? back wound Metastatic prostate ca Non- healing back ulcer Hx ESBL UTI Repeat Blood c/s , CXR (-) Continue vancomycin/ cefepime Local wound care
[2018-02-20] MEDS: morphine SULFATE 10 MG/5 ML UNIT-DOSE CUP PO PRN ×6 (10:21→22:48)
[2018-02-20 12:56] LABS: BASO % 0.5 % (0-2.0); EOS % 3.8 % (0-4.5); HEMATOCRIT 26.4 % (35.4-49); HEMOGLOBIN 8.9 GM/dl (11.7-16.9); LYMPH % 11.2 % (8-40); MCH 31.7 pg (25.7-33.7); MCHC 33.9 g/dl (32.0-35.9); MEAN CELL VOLUME 93.4 fl (80-96); MEAN PLT VOLUME 6.9 fl (7.5-11.1); MONO % 10.6 % (3.8-10.2); NEUT % 73.9 % (42.8-82.8); PLATELET COUNT 198 K/MM3 (134-434); RBC 2.82 M/mm3 (4.00-5.60); RDW 18.6 % (11.9-15.9); WHITE BLOOD COUNT 5.6 K/mm3 (4.0-10.8)
[2018-02-20 14:01] LABS: ANION GAP 7 (8-16); BLOOD UREA NITROGEN 18 mg/dl (7-18); CALCIUM 7.1 mg/dl (8.4-10.2); CHLORIDE 111 mmol/L (98-107); CO2 22 mmol/L (22-28); GLUCOSE,RANDOM 82 mg/dl (74-106); MAGNESIUM 2.1 mg/dL (1.8-2.4); PHOSPHOROUS 1.8 mg/dl (2.5-4.6); POTASSIUM 5.4 mmol/L (3.5-5.1); SODIUM 140 mmol/L (136-145)
[2018-02-20 14:11] LABS: CREATININE < 0.8 mg/dl (0.6-1.3)
[2018-02-20] MEDS ORDERED: SODIUM PHOSPHATE - 21 MM in SODIUM CHLORIDE 250 ML IVPB ONE (15:00)
[2018-02-20] MEDS: VANCOMYCIN 1 GRAM (PRE-DOCKED) 1,000 MG/250 ML BAG IVPB SCH (18:09)
[2018-02-20] MEDS: DOCUSATE SODIUM 100 MG CAPSULE (FP) PO SCH (21:32)
[2018-02-21] MEDS: CEFEPIME HCL/D5W 1 GM/50 ML BAG IVPB SCH ×3 (02:41→17:29)
[2018-02-21] MEDS: morphine SULFATE 10 MG/5 ML UNIT-DOSE CUP PO PRN ×5 (04:50→21:30)
[2018-02-21] MEDS: PREGABALIN 50 MG CAPSULE PO SCH ×3 (05:04→21:17)
[2018-02-21] MEDS: INSULIN DETEMIR 100 UNITS/ML MDV SQ SCH (07:02)
[2018-02-21] MEDS: INSULIN SLIDING SCALE (NOVOLOG) 1 VIAL SQ SCH ×4 (07:03→21:34)
--- NOTE | 2018-02-21 08:15 | PN ---
Physical Exam: SUBJECTIVE: Patient seen and examined, patient ambulated with the assistance of 1 person and walker from bed to chair,reports feeling more energetic, does report pain to decubiti on back, patient denies any tactile fevers. 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 Patient was admitted from the emergency department for sepsis secondary to polymicrobial decubiti and severe anemia. Vital Signs Period Temp Pulse Resp BP Sys/Kim Pulse Ox Last 24 Hr 98.6 F-98.8 F 71-77 17-19 97-117/50-71 94-99 GENERAL: The patient is awake, alert, and fully oriented, in no acute distress. HEAD: Normal with no signs of trauma. EYES: PERRL, extraocular movements intact, sclera anicteric, conjunctiva clear. No ptosis. ENT: Ears normal, nares patent, oropharynx clear without exudates, moist mucous membranes. NECK: Trachea midline, full range of motion, supple. LUNGS: Breath sounds equal, clear to apexes diminished to bases, no wheezes, no crackles, no accessory muscle use. HEART: Regular rate and rhythm, S1, S2 without murmur, rub or gallop. ABDOMEN: Soft, nontender, nondistended, normoactive bowel sounds, no guarding, no rebound, no hepatosplenomegaly, no masses. EXTREMITIES: 2+ pulses, warm, well-perfused, no edema. NEUROLOGICAL: Cranial nerves II through XII grossly intact. Normal speech, shuffle gait noted with walker bserved. PSYCH: Normal mood, normal affect. SKIN: Warm, dry, normal turgor, no rashes or lesions noted, stage III decubti 2.5 x 2.5 cm with slough to lumbar spine Laboratory Results - last 24 hr CBC WBC 5.9 K/mm3 (4.0-10.8) 02/21/18 10:14 RBC 2.84 M/mm3 (4.00-5.60) L 02/21/18 10:14 Hgb 9.0 GM/dl (11.7-16.9) L 02/21/18 10:14 Hct 26.8 % (35.4-49) L 02/21/18 10:14 MCV 94.4 fl (80-96) 02/21/18 10:14 MCH 31.6 pg (25.7-33.7) 02/21/18 10:14 MCHC 33.5 g/dl (32.0-35.9) 02/21/18 10:14 RDW 18.4 % (11.9-15.9) H 02/21/18 10:14 Plt Count 224 K/MM3 (134-434) 02/21/18 10:14 MPV 7.1 fl (7.5-11.1) L 02/21/18 10:14 Neutrophils % 75.9 % (42.8-82.8) 02/21/18 10:14 Lymphocytes % 10.0 % (8-40) 02/21/18 10:14 Monocytes % 9.7 % (3.8-10.2) 02/21/18 10:14 Eosinophils % 3.9 % (0-4.5) 02/21/18 10:14 Basophils % 0.5 % (0-2.0) 02/21/18 10:14 Platelet Estimate Adequate 02/17/18 17:50 Platelet Comment Rare giant plts 02/15/18 16:55 Polychromasia 1+ 02/15/18 16:55 Poikilocytosis 1+ 02/15/18 16:55 Anisocytosis 2+ 02/17/18 17:50 Macrocytosis 1+ 02/15/18 16:55 Tear Drop Cells 1+ 02/17/18 17:50 Ovalocytes Rare 02/15/18 16:55 CMP Sodium 136 mmol/L (136-145) 02/21/18 10:14 Potassium 5.6 mmol/L (3.5-5.1) H 02/21/18 10:14 Chloride 107 mmol/L (98-107) 02/21/18 10:14 Carbon Dioxide 23 mmol/L (22-28) 02/21/18 10:14 Anion Gap 6 (8-16) L 02/21/18 10:14 BUN 21 mg/dl (7-18) H 02/21/18 10:14 Creatinine 0.7 mg/dl (0.6-1.3) 02/21/18 10:14 Creat Clearance w eGFR > 60 (>60) 02/17/18 07:01 POC Glucometer 117 UNITS (80-120) 02/21/18 12:09 Random Glucose 182 mg/dl (74-106) H D 02/21/18 10:14 Lactic Acid 0.9 mmol/L (0.0-2.0) 02/15/18 19:10 Calcium 7.0 mg/dl (8.4-10.2) L 02/21/18 10:14 Phosphorus 2.0 mg/dl (2.5-4.6) L 02/21/18 10:14 Magnesium 1.9 mg/dL (1.8-2.4) 02/21/18 10:14 Total Bilirubin < 0.5 mg/dl (0.2-1.0) 02/17/18 07:01 AST 14 U/L (10-42) 02/17/18 07:01 ALT 9 U/L (10-40) L 02/17/18 07:01 Alkaline Phosphatase 121 U/L (32-92) H 02/17/18 07:01 Troponin I 0.03 ng/ml (0.00-0.06) 02/15/18 16:55 Total Protein 5.6 g/dl (6.4-8.3) L 02/17/18 07:01 Albumin 2.0 g/dl (3.5-5.0) L 02/17/18 07:01 Active Medications Generic Name Dose Route Start Last Admin Trade Name Freq PRN Reason Stop Dose Admin Acetaminophen 650 mg 02/16/18 16:32 02/20/18 09:59 Tylenol - PO 650 mg Q6H PRN Administration FEVER Amino Acids 30 ml 02/18/18 17:30 02/20/18 18:10 Prosource No Carb Liquid Pkt PO 30 ml BID@0800,1730 MANNY Administration Collagenase 1 applic 02/16/18 10:00 02/20/18 10:04 Santyl - TP 1 applic DAILY MANNY Administration Dipyridamole/Aspirin 1 combo 02/16/18 10:00 02/20/18 21:33 Aggrenox - PO 1 combo BID MANNY Administration Docusate Sodium 300 mg 02/15/18 22:00 02/20/18 21:32 Colace - PO 300 mg HS MANNY Administration Enoxaparin Sodium 70 mg 02/16/18 07:59 02/20/18 21:34 Lovenox - SQ 70 mg BID MANNY Administration Cefepime HCl 1 gm in 50 mls @ 100 mls/hr 02/20/18 07:44 02/21/18 02:41 Maxipime 1 Gm Premix Ivpb IVPB 100 mls/hr Q8H-IV MANNY Administration Protocol Insulin Aspart 1 vial 02/16/18 22:00 02/21/18 07:03 Novolog Vial Sliding Scale - SQ Not Given ACHS MANNY Protocol Insulin Detemir 12 units 02/16/18 07:00 02/21/18 07:02 Levemir Vial SQ 12 units AM MANNY Administration Ketorolac Tromethamine 1 drop 02/19/18 18:00 02/20/18 21:34 Ketorolac Tromethamine OU 1 drop QID MANNY Administration Lactobacillus Acidophilus 1 tab 02/19/18 10:00 02/20/18 10:01 Bacid - PO 1 tab DAILY MANNY Administration Morphine Sulfate 60 mg 02/15/18 22:00 02/20/18 21:33 Ms Contin - PO 60 mg BID MANNY Administration Morphine Sulfate 10 mg 02/19/18 07:49 02/21/18 04:50 Morphine 10 Mg/5 Ml Liquid PO 10 mg Q2H PRN Administration PAIN LEVEL 7 - 10 Multivitamins/Minerals/Vitamin C 1 tab 02/16/18 10:00 02/20/18 10:00 Tab-A-Vit - PO 1 tab DAILY MANNY Administration Pantoprazole Sodium 40 mg 02/16/18 10:00 02/20/18 10:00 Protonix - PO 40 mg DAILY MANNY Administration Polyethylene Glycol 17 gm 02/16/18 10:00 02/20/18 10:03 Miralax (For Daily Use) - PO Not Given DAILY MANNY Potassium Phos/Sodium Phos 1 packet 02/18/18 22:00 02/20/18 21:34 Phos-Nak Packet - PO 1 packet BID MANNY Administration Prednisolone Acetate 1 drop 02/15/18 22:00 02/20/18 21:34 Pred Forte 1% - OU 1 drop QID MANNY Administration Pregabalin 150 mg 02/15/18 22:00 02/21/18 05:04 Lyrica - PO 150 mg TID MANNY Administration Vancomycin HCl 1,000 mg 02/16/18 16:30 02/20/18 18:09 Vancomycin (Pre-Docked) IVPB 1,000 mg DAILY@1630 MANNY Administration Protocol Venlafaxine HCl 100 mg 02/16/18 10:00 02/20/18 10:01 Effexor - PO 100 mg DAILY MANNY Administration Microbiology 02/18/18 11:40 Blood - Peripheral Venous Blood Culture - Preliminary NO GROWTH OBTAINED AFTER 72 HOURS, INCUBATION TO CONTINUE FOR 2 DAYS. 02/18/18 11:40 Blood - Peripheral Venous Blood Culture - Preliminary NO GROWTH OBTAINED AFTER 72 HOURS, INCUBATION TO CONTINUE FOR 2 DAYS. 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 ASSESSMENT/PLAN: 1) heme/onc Symptomatic anemia - a total of 3 unit of PRBC 02/15 and 02/17, repeat hgb today 9.0, baseline 10.7 , strict monitoring repeat cbc in am - stool for occult blood negative iron deficiency anemia - iron studies noted, venofer 02/17/18, 02/19/18, 02/21/18 will require 2 additional doses of venofer Metastatic prostate cancer - On Xgeva monthly - continue home dose morphine sulfate 60mg bid standing with morphine sulfate 10mg q2h for breakthrough pain, medications verfied with [employer] # [id number] - continue lovenox due to hypercoaqulable state, in addition, pt has a history of PE 2)ID fever sepsis - afebrile, no leukocytosis, repeat blood culture negative to date, wound culture notable for polymicrobal - esr/crp ordered to r/o osteo - continue vanc (02/16-) and cefepime (02/19-) and invanz (02/16-02/18), vanc trough ordered - ID consulted and following 3) cardiovascular Hx of carotid stenosis - reports the patient has been on Aggrenox for 15 years - Continue Aggrenox 4) endo DM - Levemir 12u sq am - BGM ACHS with ISS ACHS 5) derm stage III decubti - continue 4 x4 dressing with collaganase - reports pain to site, xray of thoracic spine reviewed - vascular consulted and following 6) F/E/N: - Diabetic diet hyperkalemia - na k phos packet changes to QD, strict monitoring, repeat bmp in am - replete phosph, naphos gtt ordered 7) Prophylaxis: - On full dose Lovenox 8) Dispo: - requires inpatient admission CODE STATUS: DNI Visit type - Emergency Visit Emergency Visit: Yes ED Registration Date: 02/18/18 Care time: The patient presented to the Emergency Department on the above date and was hospitalized for further evaluation of their emergent condition. - New Patient This patient is new to me today: No - Critical Care Critical Care patient: No - Discharge Referral Referred to [facility] Med P.C.: No
[2018-02-21] MEDS: AMINO ACIDS/PROTEIN HYDROLYS 30 ML LIQUID.PKT PO SCH ×2 (08:39→17:20)
[2018-02-21] MEDS ORDERED: PT OWN MED DRAWER 7, Y5N ONE ×3 (09:51→21:08)
[2018-02-21] MEDS: ASPIRIN/DIPYRIDAMOLE 25 MG/200 MG CAPSULE (FP) PO SCH ×2 (09:53→21:19)
[2018-02-21] MEDS: MULTIVITAMINS (DAILY MVI) TABLET (FP) PO SCH (09:53)
[2018-02-21] MEDS: PANTOPRAZOLE 40 MG TABLET (FP) PO SCH (09:53)
[2018-02-21] MEDS: ACETAMINOPHEN 325 MG TABLET (FP) PO PRN (09:53)
[2018-02-21] MEDS: morphine SO4 SUSTAINED ACTING 30 MG TABLET.SA PO SCH ×2 (09:53→21:19)
[2018-02-21] MEDS: LACTOBACILLUS ACIDOPHILUS 1 TABLET PO SCH (09:54)
[2018-02-21] MEDS: NAPH,MB-DB/K PH,MBDB POWDER PACKET PO SCH (09:54)
[2018-02-21] MEDS: ENOXAPARIN NA (PORCINE) 80 MG/0.8 ML DISP.SYRIN SQ SCH ×2 (09:54→21:18)
[2018-02-21] MEDS: COLLAGENASE CLOSTRIDIUM HIST. 30 GRAMS TUBE TP SCH (09:54)
[2018-02-21] MEDS: POLYETHYLENE GLYCOL 3350 119 GM BTL PO SCH (09:54)
[2018-02-21] MEDS: VENLAFAXINE HCL 25 MG TABLET PO SCH (09:54)
[2018-02-21] MEDS: prednisoLONE ACETATE 1% OPHTH SUSP 5 ML BOTTLE OU SCH ×4 (10:07→21:20)
[2018-02-21] MEDS: KETOROLAC TROMETHAMINE 0.5% 5 ML BOTTLE OPTHALMIC OU SCH ×4 (10:07→21:19)
[2018-02-21 10:35] LABS: BASO % 0.5 % (0-2.0); EOS % 3.9 % (0-4.5); HEMATOCRIT 26.8 % (35.4-49); MCH 31.6 pg (25.7-33.7); MCHC 33.5 g/dl (32.0-35.9); MEAN CELL VOLUME 94.4 fl (80-96); MEAN PLT VOLUME 7.1 fl (7.5-11.1); MONO % 9.7 % (3.8-10.2); NEUT % 75.9 % (42.8-82.8); PLATELET COUNT 224 K/MM3 (134-434); RBC 2.84 M/mm3 (4.00-5.60); RDW 18.4 % (11.9-15.9); WHITE BLOOD COUNT 5.9 K/mm3 (4.0-10.8)
--- NOTE | 2018-02-21 10:44 | PN ---
Progress Note, Physician History of Present Illness: Awake, alert in bed C/O back pain at site of dorsal wound Denies fever/ chills No c/o dysuria or urinary retention - Current Medication List Current Medications: Active Medications Acetaminophen (Tylenol -) 650 mg PO Q6H PRN PRN Reason: FEVER Last Admin: 02/21/18 09:53 Dose: 650 mg Amino Acids (Prosource No Carb Liquid Pkt) 30 ml PO BID@0800,1730 [facility] Last Admin: 02/21/18 08:39 Dose: 30 ml Collagenase (Santyl -) 1 applic TP DAILY [facility] Last Admin: 02/21/18 09:54 Dose: 1 applic Dipyridamole/Aspirin (Aggrenox -) 1 combo PO BID [facility] Last Admin: 02/21/18 09:53 Dose: 1 combo Docusate Sodium (Colace -) 300 mg PO HS [facility] Last Admin: 02/20/18 21:32 Dose: 300 mg Enoxaparin Sodium (Lovenox -) 70 mg SQ BID [facility] Last Admin: 02/21/18 09:54 Dose: 70 mg Cefepime HCl (Maxipime 1 Gm Premix Ivpb) 1 gm in 50 mls @ 100 mls/hr IVPB Q8H- IV [facility] PRN Reason: Protocol Last Admin: 02/21/18 09:54 Dose: 100 mls/hr Insulin Aspart (Novolog Vial Sliding Scale -) 1 vial SQ ACHS [facility] PRN Reason: Protocol Last Admin: 02/21/18 07:03 Dose: Not Given Insulin Detemir (Levemir Vial) 12 units SQ AM [facility] Last Admin: 02/21/18 07:02 Dose: 12 units Ketorolac Tromethamine (Ketorolac Tromethamine) 1 drop OU QID [facility] Last Admin: 02/21/18 10:07 Dose: 1 drop Lactobacillus Acidophilus (Bacid -) 1 tab PO DAILY [facility] Last Admin: 02/21/18 09:54 Dose: 1 tab Morphine Sulfate (Ms Contin -) 60 mg PO BID [facility] Last Admin: 02/21/18 09:53 Dose: 60 mg Morphine Sulfate (Morphine 10 Mg/5 Ml Liquid) 10 mg PO Q2H PRN PRN Reason: PAIN LEVEL 7 - 10 Last Admin: 02/21/18 08:38 Dose: 10 mg Multivitamins/Minerals/Vitamin C (Tab-A-Vit -) 1 tab PO DAILY [facility] Last Admin: 02/21/18 09:53 Dose: 1 tab Pantoprazole Sodium (Protonix -) 40 mg PO DAILY [facility] Last Admin: 02/21/18 09:53 Dose: 40 mg Polyethylene Glycol (Miralax (For Daily Use) -) 17 gm PO DAILY [facility] Last Admin: 02/21/18 09:54 Dose: 17 grams Potassium Phos/Sodium Phos (Phos-Nak Packet -) 1 packet PO BID [facility] Last Admin: 02/21/18 09:54 Dose: 1 packet Prednisolone Acetate (Pred Forte 1% -) 1 drop OU QID [facility] Last Admin: 02/21/18 10:07 Dose: 1 drop Pregabalin (Lyrica -) 150 mg PO TID [facility] Last Admin: 02/21/18 05:04 Dose: 150 mg Vancomycin HCl (Vancomycin (Pre-Docked)) 1,000 mg IVPB DAILY@1630 [facility] PRN Reason: Protocol Last Admin: 02/20/18 18:09 Dose: 1,000 mg Venlafaxine HCl (Effexor -) 100 mg PO DAILY [facility] Last Admin: 02/21/18 09:54 Dose: 100 mg - Objective Vital Signs: Vital Signs Temperature 98.6 F 02/21/18 06:00 Pulse Rate 77 02/21/18 06:00 Respiratory Rate 19 02/21/18 06:00 Blood Pressure 117/50 02/21/18 06:00 O2 Sat by Pulse Oximetry (%) 94 L 02/21/18 06:29 Constitutional: Yes: No Distress, Cachectic Cardiovascular: Yes: Regular Rate and Rhythm, S1, S2 Respiratory: Yes: CTA Bilaterally Gastrointestinal: Yes: Normal Bowel Sounds, Soft. No: Tenderness Edema: No Labs: CBC, BMP 02/21/18 10:14 INR, PTT INR 1.27 (0.82-1.09) H 02/15/18 16:55 Assessment/Plan Fever ? source ? back wound temps down wound c/s polymicrobial Metastatic prostate ca Non- healing back ulcer ? underlying osteomyelitis Hx ESBL UTI Repeat Blood c/s , CXR (-) Continue vancomycin/ cefepime Obtain ESR CRP Xray spine Local wound care Discussed with patient's by phone
[2018-02-21 10:50] LABS: ANION GAP 6 (8-16); CHLORIDE 107 mmol/L (98-107); CO2 23 mmol/L (22-28); GLUCOSE,RANDOM 182 mg/dl (74-106); POTASSIUM 5.6 mmol/L (3.5-5.1); SODIUM 136 mmol/L (136-145)
[2018-02-21 11:01] LABS: BLOOD UREA NITROGEN 21 mg/dl (7-18); CREATININE 0.7 mg/dl (0.6-1.3); MAGNESIUM 1.9 mg/dL (1.8-2.4)
[2018-02-21] MEDS ORDERED: IRON SUCROSE INJECTION 200 MG in SODIUM CHLORIDE 90 ML IVPB ONE (11:30)
[2018-02-21] MEDS ORDERED: SODIUM PHOSPHATE - 15 MM in SODIUM CHLORIDE 250 ML IVPB ONE (11:30)
[2018-02-21] MEDS: VANCOMYCIN 1 GRAM (PRE-DOCKED) 1,000 MG/250 ML BAG IVPB SCH (16:13)
[2018-02-21] MEDS: DOCUSATE SODIUM 100 MG CAPSULE (FP) PO SCH (21:18)
[2018-02-22] MEDS: CEFEPIME HCL/D5W 1 GM/50 ML BAG IVPB SCH ×3 (01:45→18:42)
[2018-02-22] MEDS: ACETAMINOPHEN 325 MG TABLET (FP) PO PRN ×2 (06:21→21:36)
[2018-02-22] MEDS: PREGABALIN 50 MG CAPSULE PO SCH ×3 (06:21→21:35)
[2018-02-22] MEDS: INSULIN SLIDING SCALE (NOVOLOG) 1 VIAL SQ SCH ×4 (06:22→23:31)
[2018-02-22 08:37] LABS: BASO % 0.4 % (0-2.0); HEMATOCRIT 25.3 % (35.4-49); HEMOGLOBIN 8.6 GM/dl (11.7-16.9); LYMPH % 11.9 % (8-40); MCH 32.1 pg (25.7-33.7); MEAN CELL VOLUME 94.2 fl (80-96); MEAN PLT VOLUME 7.2 fl (7.5-11.1); MONO % 11.6 % (3.8-10.2); NEUT % 72.1 % (42.8-82.8); PLATELET COUNT 203 K/MM3 (134-434); RBC 2.69 M/mm3 (4.00-5.60); RDW 18.4 % (11.9-15.9); WHITE BLOOD COUNT 5.9 K/mm3 (4.0-10.8)
[2018-02-22 08:40] LABS: ANION GAP 4 (8-16); BLOOD UREA NITROGEN 24 mg/dl (7-18); CALCIUM 7.2 mg/dl (8.4-10.2); CHLORIDE 111 mmol/L (98-107); CO2 23 mmol/L (22-28); GLUCOSE,RANDOM 109 mg/dl (74-106); MAGNESIUM 1.9 mg/dL (1.8-2.4); POTASSIUM 5.8 mmol/L (3.5-5.1); SODIUM 138 mmol/L (136-145)
[2018-02-22 08:55] LABS: CREATININE < 0.8 mg/dl (0.6-1.3)
[2018-02-22] MEDS ORDERED: SODIUM POLYSTYRENE SULFONATE 15 GM/60 ML BOTTLE PO ONE (09:01)
[2018-02-22] MEDS ORDERED: IRON SUCROSE INJECTION 200 MG in SODIUM CHLORIDE 240 ML IVPB ONE (09:02)
--- NOTE | 2018-02-22 09:03 | PN ---
Physical Exam: SUBJECTIVE: Patient seen and examined at the bedside. States he feels that he is confused this morning and often wakes up confused. Denies pain, denies shortness of breath. OBJECTIVE: Able to state name, where he is and date Will order 4th dose of Venofer Monitor K @ 5.8, 1 dose of kayexelate ordered with repeat K this afternoon Vital Signs Period Temp Pulse Resp BP Sys/Kim Pulse Ox Last 24 Hr 98.6 F-99.3 F 74-88 19-20 111-124/50-65 93-94 GENERAL: The patient is awake, alert, and fully oriented, in no acute distress. HEAD: Normal with no signs of trauma. EYES: PERRL, extraocular movements intact, sclera anicteric, conjunctiva clear. No ptosis. ENT: Ears normal, nares patent, oropharynx clear without exudates, moist mucous membranes. NECK: Trachea midline, full range of motion, supple. LUNGS: Breath sounds equal, clear to auscultation anteriorly HEART: Regular rate and rhythm ABDOMEN: Soft, nontender, nondistended, normoactive bowel sounds, no guarding EXTREMITIES:no edema. NEUROLOGICAL: Normal speech, gait not observed, but reportedly gets out of bed to chair PSYCH: Normal mood, normal affect. SKIN: large wound, circular on mid back, stage III circular pressure wound, 2.5 x 2.5 cm with slough to lumbar spine Laboratory Results - last 24 hr 02/21/18 02/21/18 02/21/18 10:14 10:14 12:09 WBC 5.9 RBC 2.84 L Hgb 9.0 L Hct 26.8 L MCV 94.4 MCH 31.6 MCHC 33.5 RDW 18.4 H Plt Count 224 MPV 7.1 L Neutrophils % 75.9 Lymphocytes % 10.0 Monocytes % 9.7 Eosinophils % 3.9 Basophils % 0.5 Sodium 136 Potassium 5.6 H Chloride 107 Carbon Dioxide 23 Anion Gap 6 L BUN 21 H Creatinine 0.7 POC Glucometer 117 Random Glucose 182 H D Calcium 7.0 L Phosphorus 2.0 L Magnesium 1.9 Vancomycin Pre-Dose 02/21/18 02/21/18 02/21/18 16:00 16:28 21:31 WBC RBC Hgb Hct MCV MCH MCHC RDW Plt Count MPV Neutrophils % Lymphocytes % Monocytes % Eosinophils % Basophils % Sodium Potassium Chloride Carbon Dioxide Anion Gap BUN Creatinine POC Glucometer 102 152 Random Glucose Calcium Phosphorus Magnesium Vancomycin Pre-Dose 14.702 H D 02/22/18 02/22/18 02/22/18 06:13 07:20 07:20 WBC 5.9 RBC 2.69 L Hgb 8.6 L Hct 25.3 L MCV 94.2 MCH 32.1 MCHC 34.0 RDW 18.4 H Plt Count 203 MPV 7.2 L Neutrophils % 72.1 Lymphocytes % 11.9 Monocytes % 11.6 H Eosinophils % 4.0 Basophils % 0.4 Sodium 138 Potassium 5.8 H Chloride 111 H Carbon Dioxide 23 Anion Gap 4 L BUN 24 H Creatinine < 0.8 POC Glucometer 108 Random Glucose 109 H D Calcium 7.2 L Phosphorus 2.0 L Magnesium 1.9 Vancomycin Pre-Dose Active Medications Generic Name Dose Route Start Last Admin Trade Name Freq PRN Reason Stop Dose Admin Acetaminophen 650 mg 02/16/18 16:32 02/22/18 06:21 Tylenol - PO 650 mg Q6H PRN Administration FEVER Amino Acids 30 ml 02/18/18 17:30 02/21/18 17:20 Prosource No Carb Liquid Pkt PO 30 ml BID@0800,1730 MANNY Administration Collagenase 1 applic 02/16/18 10:00 02/21/18 09:54 Santyl - TP 1 applic DAILY MANNY Administration Dipyridamole/Aspirin 1 combo 02/16/18 10:00 02/21/18 21:19 Aggrenox - PO 1 combo BID MANNY Administration Docusate Sodium 300 mg 02/15/18 22:00 02/21/18 21:18 Colace - PO 300 mg HS MANNY Administration Enoxaparin Sodium 70 mg 02/16/18 07:59 02/21/18 21:18 Lovenox - SQ 70 mg BID MANNY Administration Cefepime HCl 1 gm in 50 mls @ 100 mls/hr 02/20/18 07:44 02/22/18 01:45 Maxipime 1 Gm Premix Ivpb IVPB 100 mls/hr Q8H-IV MANNY Administration Protocol Insulin Aspart 1 vial 02/16/18 22:00 02/22/18 06:22 Novolog Vial Sliding Scale - SQ Not Given ACHS MANNY Protocol Insulin Detemir 12 units 02/16/18 07:00 02/21/18 07:02 Levemir Vial SQ 12 units AM MANNY Administration Ketorolac Tromethamine 1 drop 02/19/18 18:00 02/21/18 21:19 Ketorolac Tromethamine OU 1 drop QID MANNY Administration Lactobacillus Acidophilus 1 tab 02/19/18 10:00 02/21/18 09:54 Bacid - PO 1 tab DAILY MANNY Administration Morphine Sulfate 60 mg 02/15/18 22:00 02/21/18 21:19 Ms Contin - PO 60 mg BID MANNY Administration Morphine Sulfate 10 mg 02/19/18 07:49 02/21/18 21:30 Morphine 10 Mg/5 Ml Liquid PO 10 mg Q2H PRN Administration PAIN LEVEL 7 - 10 Multivitamins/Minerals/Vitamin C 1 tab 02/16/18 10:00 02/21/18 09:53 Tab-A-Vit - PO 1 tab DAILY MANNY Administration Pantoprazole Sodium 40 mg 02/16/18 10:00 02/21/18 09:53 Protonix - PO 40 mg DAILY MANNY Administration Polyethylene Glycol 17 gm 02/16/18 10:00 02/21/18 09:54 Miralax (For Daily Use) - PO 17 grams DAILY MANNY Administration Potassium Phos/Sodium Phos 1 packet 02/22/18 10:00 Phos-Nak Packet - PO DAILY [facility] Prednisolone Acetate 1 drop 02/15/18 22:00 02/21/18 21:20 Pred Forte 1% - OU 1 drop QID MANNY Administration Pregabalin 150 mg 02/15/18 22:00 02/22/18 06:21 Lyrica - PO 150 mg TID MANNY Administration Sodium Polystyrene Sulfonate 30 gm 02/22/18 09:01 Kayexalate - PO 02/22/18 09:02 ONCE ONE Vancomycin HCl 1,000 mg 02/16/18 16:30 02/21/18 16:13 Vancomycin (Pre-Docked) IVPB 1,000 mg DAILY@1630 MANNY Administration Protocol Venlafaxine HCl 100 mg 02/16/18 10:00 02/21/18 09:54 Effexor - PO 100 mg DAILY MANNY Administration ASSESSMENT/PLAN: Patient is an 88 year old male with a significant past medical history of metastatic prostate cancer on Xgeva, pulmonary embolism (s/p ivc filter and on home dose of Lovenox), diabetes mellitus, small bowel obstruction and 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 Patient was admitted from the emergency department for sepsis secondary to polymicrobial decubitis and severe anemia. ID: Sepsis Likely secondary to back wound (stage III decubitus) Afebrile, WBC stable, labs wnl On Vancomycin and Cefepime Local wound care, on collagenase Repeat blood cultures negative to date ID following Onc/Hematology: Symptomatic anemia Patient hx of multiple prbc infusions On Venofer dose 4/5 Stool for occult blood negative hmg/hct low stable currently Transfuse if hmg <8.0 Prostate cancer, history On Xgeva monthly Pain management with Morphine Pulmonary Embolism history On Lovenox 70 mg BID Neuro: CVA, History On Aggrenox Endocrine: Diabetes BGMs, SS, Levemir F.E.N. Fluids: tolerating PO Electrolytes: HyperK, given Kayexalate Nutrition: diabetic diet Prophy: DVT: GI: Protonix DVT: On Lovenix 70mg BID Disposition: DNI only Visit type - Emergency Visit Emergency Visit: Yes ED Registration Date: 02/18/18 Care time: The patient presented to the Emergency Department on the above date and was hospitalized for further evaluation of their emergent condition. - New Patient This patient is new to me today: No - Critical Care Critical Care patient: No - Discharge Referral Referred to [facility] Med P.C.: No
[2018-02-22] MEDS: AMINO ACIDS/PROTEIN HYDROLYS 30 ML LIQUID.PKT PO SCH ×2 (09:09→17:41)
[2018-02-22] MEDS: morphine SULFATE 10 MG/5 ML UNIT-DOSE CUP PO PRN ×4 (09:10→18:40)
[2018-02-22] MEDS ORDERED: PT OWN MED DRAWER 7, Y5N ONE ×5 (09:31→21:29)
[2018-02-22] MEDS: KETOROLAC TROMETHAMINE 0.5% 5 ML BOTTLE OPTHALMIC OU SCH ×4 (10:04→21:34)
[2018-02-22] MEDS: LACTOBACILLUS ACIDOPHILUS 1 TABLET PO SCH (10:24)
[2018-02-22] MEDS: ASPIRIN/DIPYRIDAMOLE 25 MG/200 MG CAPSULE (FP) PO SCH ×2 (10:24→21:34)
[2018-02-22] MEDS: ENOXAPARIN NA (PORCINE) 80 MG/0.8 ML DISP.SYRIN SQ SCH ×2 (10:25→21:34)
[2018-02-22] MEDS: POLYETHYLENE GLYCOL 3350 119 GM BTL PO SCH (10:26)
[2018-02-22] MEDS: prednisoLONE ACETATE 1% OPHTH SUSP 5 ML BOTTLE OU SCH ×4 (10:26→21:37)
[2018-02-22] MEDS: COLLAGENASE CLOSTRIDIUM HIST. 30 GRAMS TUBE TP SCH (10:26)
[2018-02-22] MEDS: NAPH,MB-DB/K PH,MBDB POWDER PACKET PO SCH (10:26)
[2018-02-22] MEDS: PANTOPRAZOLE 40 MG TABLET (FP) PO SCH (10:26)
[2018-02-22] MEDS: MULTIVITAMINS (DAILY MVI) TABLET (FP) PO SCH (10:27)
[2018-02-22] MEDS: morphine SO4 SUSTAINED ACTING 30 MG TABLET.SA PO SCH ×2 (10:30→21:35)
[2018-02-22] MEDS ORDERED: ACETAMINOPHEN 325 MG TABLET (FP) ONE (11:11)
[2018-02-22] MEDS: VENLAFAXINE HCL 75 MG TABLET PO SCH (12:04)
[2018-02-22] MEDS: VANCOMYCIN 1 GRAM (PRE-DOCKED) 1,000 MG/250 ML BAG IVPB SCH ×2 (18:41→20:05)
[2018-02-22] MEDS: DOCUSATE SODIUM 100 MG CAPSULE (FP) PO SCH (21:34)
[2018-02-23] MEDS: CEFEPIME HCL/D5W 1 GM/50 ML BAG IVPB SCH ×3 (01:01→18:31)
[2018-02-23] MEDS: PREGABALIN 50 MG CAPSULE PO SCH ×2 (06:52→16:21)
[2018-02-23] MEDS: INSULIN DETEMIR 100 UNITS/ML MDV SQ SCH (06:52)
[2018-02-23] MEDS: INSULIN SLIDING SCALE (NOVOLOG) 1 VIAL SQ SCH ×4 (07:45→21:06)
[2018-02-23] MEDS: AMINO ACIDS/PROTEIN HYDROLYS 30 ML LIQUID.PKT PO SCH ×2 (08:09→17:11)
[2018-02-23 09:17] LABS: BASO % 0.5 % (0-2.0); EOS % 4.3 % (0-4.5); HEMATOCRIT 24.2 % (35.4-49); HEMOGLOBIN 7.7 GM/dl (11.7-16.9); LYMPH % 13.2 % (8-40); MCH 30.2 pg (25.7-33.7); MCHC 31.8 g/dl (32.0-35.9); MEAN PLT VOLUME 7.3 fl (7.5-11.1); MONO % 10.9 % (3.8-10.2); NEUT % 71.1 % (42.8-82.8); PLATELET COUNT 214 K/MM3 (134-434); RBC 2.55 M/mm3 (4.00-5.60); RDW 17.7 % (11.9-15.9); WHITE BLOOD COUNT 6.9 K/mm3 (4.0-10.8)
[2018-02-23] MEDS ORDERED: PT OWN MED DRAWER 7, Y5N ONE ×3 (09:26→21:22)
[2018-02-23] MEDS: LACTOBACILLUS ACIDOPHILUS 1 TABLET PO SCH (09:30)
[2018-02-23] MEDS: KETOROLAC TROMETHAMINE 0.5% 5 ML BOTTLE OPTHALMIC OU SCH ×4 (09:30→21:24)
[2018-02-23] MEDS: ENOXAPARIN NA (PORCINE) 80 MG/0.8 ML DISP.SYRIN SQ SCH ×2 (09:30→21:25)
[2018-02-23] MEDS: morphine SO4 SUSTAINED ACTING 30 MG TABLET.SA PO SCH ×2 (09:31→21:23)
[2018-02-23] MEDS: ASPIRIN/DIPYRIDAMOLE 25 MG/200 MG CAPSULE (FP) PO SCH ×2 (09:31→21:24)
[2018-02-23] MEDS: MULTIVITAMINS (DAILY MVI) TABLET (FP) PO SCH (09:31)
[2018-02-23] MEDS: NAPH,MB-DB/K PH,MBDB POWDER PACKET PO SCH (09:32)
[2018-02-23] MEDS: COLLAGENASE CLOSTRIDIUM HIST. 30 GRAMS TUBE TP SCH (09:32)
[2018-02-23] MEDS: prednisoLONE ACETATE 1% OPHTH SUSP 5 ML BOTTLE OU SCH ×4 (09:32→21:25)
[2018-02-23] MEDS: PANTOPRAZOLE 40 MG TABLET (FP) PO SCH (09:32)
[2018-02-23] MEDS: POLYETHYLENE GLYCOL 3350 119 GM BTL PO SCH (09:33)
[2018-02-23 09:43] LABS: ALBUMIN 2.1 g/dl (3.5-5.0); ALK PHOS 129 U/L (32-92); ANION GAP 6 (8-16); BLOOD UREA NITROGEN 26 mg/dl (7-18); CALCIUM 7.2 mg/dl (8.4-10.2); CHLORIDE 108 mmol/L (98-107); CO2 24 mmol/L (22-28); CREATININE 0.8 mg/dl (0.6-1.3); GLUCOSE,RANDOM 111 mg/dl (74-106); MAGNESIUM 1.8 mg/dL (1.8-2.4); POTASSIUM 5.8 mmol/L (3.5-5.1); SGOT/AST 15 U/L (10-42); SGPT/ALT 9 U/L (10-40); SODIUM 138 mmol/L (136-145)
--- NOTE | 2018-02-23 09:56 | PN ---
Progress Note (short form) - Note Progress Note: Subjective: The patient was seen and examined at the bedside, he has no complaints today. Observed walking around the unit. Current Medications Generic Name Dose Route Start Last Admin Trade Name Freq PRN Reason Stop Dose Admin Acetaminophen 650 mg 02/16/18 16:32 02/22/18 21:36 Tylenol - PO 650 mg Q6H PRN Administration FEVER Amino Acids 30 ml 02/18/18 17:30 02/23/18 08:09 Prosource No Carb Liquid Pkt PO 30 ml BID@0800,1730 MANNY Administration Collagenase 1 applic 02/16/18 10:00 02/23/18 09:32 Santyl - TP 1 applic DAILY MANNY Administration Dipyridamole/Aspirin 1 combo 02/16/18 10:00 02/23/18 09:31 Aggrenox - PO 1 combo BID MANNY Administration Docusate Sodium 300 mg 02/15/18 22:00 02/22/18 21:34 Colace - PO 300 mg HS MANNY Administration Enoxaparin Sodium 70 mg 02/16/18 07:59 02/23/18 09:30 Lovenox - SQ 70 mg BID MANNY Administration Cefepime HCl 1 gm in 50 mls @ 100 mls/hr 02/20/18 07:44 02/23/18 09:45 Maxipime 1 Gm Premix Ivpb IVPB 100 mls/hr Q8H-IV MANNY Administration Protocol Insulin Aspart 1 vial 02/16/18 22:00 02/23/18 07:45 Novolog Vial Sliding Scale - SQ Not Given ACHS MANNY Protocol Insulin Detemir 12 units 02/16/18 07:00 02/23/18 06:52 Levemir Vial SQ 12 units AM MANNY Administration Ketorolac Tromethamine 1 drop 02/19/18 18:00 02/23/18 09:30 Ketorolac Tromethamine OU 1 drop QID MANNY Administration Lactobacillus Acidophilus 1 tab 02/19/18 10:00 02/23/18 09:30 Bacid - PO 1 tab DAILY MANNY Administration Morphine Sulfate 60 mg 02/15/18 22:00 02/23/18 09:31 Ms Contin - PO 60 mg BID MANNY Administration Morphine Sulfate 10 mg 02/19/18 07:49 02/22/18 18:40 Morphine 10 Mg/5 Ml Liquid PO 10 mg Q2H PRN Administration PAIN LEVEL 7 - 10 Multivitamins/Minerals/Vitamin C 1 tab 02/16/18 10:00 02/23/18 09:31 Tab-A-Vit - PO 1 tab DAILY MANNY Administration Pantoprazole Sodium 40 mg 02/16/18 10:00 02/23/18 09:32 Protonix - PO 40 mg DAILY MANNY Administration Polyethylene Glycol 17 gm 02/16/18 10:00 02/23/18 09:33 Miralax (For Daily Use) - PO 17 grams DAILY MANNY Administration Prednisolone Acetate 1 drop 02/15/18 22:00 02/23/18 09:32 Pred Forte 1% - OU 1 drop QID MANNY Administration Pregabalin 150 mg 02/15/18 22:00 02/23/18 06:52 Lyrica - PO 150 mg TID MANNY Administration Vancomycin HCl 1,000 mg 02/16/18 16:30 02/22/18 20:05 Vancomycin (Pre-Docked) IVPB 1,000 mg DAILY@1630 MANNY Administration Protocol Venlafaxine HCl 75 mg 02/22/18 11:30 02/23/18 10:49 Effexor - PO 75 mg DAILY MANNY Administration Objective: Vital Signs Period Temp Pulse Resp BP Sys/Kim Pulse Ox Last 24 Hr 97.8 F-98.3 F 73-84 17-18 107-129/32-63 95-98 Physical Exam: Patient refused CBCD WBC 6.9 K/mm3 (4.0-10.8) 02/23/18 06:40 RBC 2.55 M/mm3 (4.00-5.60) L 02/23/18 06:40 Hgb 7.7 GM/dl (11.7-16.9) L D 02/23/18 06:40 Hct 24.2 % (35.4-49) L 02/23/18 06:40 MCV 95.0 fl (80-96) 02/23/18 06:40 MCHC 31.8 g/dl (32.0-35.9) L 02/23/18 06:40 RDW 17.7 % (11.9-15.9) H 02/23/18 06:40 Plt Count 214 K/MM3 (134-434) 02/23/18 06:40 MPV 7.3 fl (7.5-11.1) L 02/23/18 06:40 CMP Sodium 138 mmol/L (136-145) 02/23/18 06:40 Potassium 5.8 mmol/L (3.5-5.1) H 02/23/18 06:40 Chloride 108 mmol/L (98-107) H 02/23/18 06:40 Carbon Dioxide 24 mmol/L (22-28) 02/23/18 06:40 Anion Gap 6 (8-16) L 02/23/18 06:40 BUN 26 mg/dl (7-18) H 02/23/18 06:40 Creatinine 0.8 mg/dl (0.6-1.3) 02/23/18 06:40 Creat Clearance w eGFR > 60 (>60) 02/23/18 06:40 Random Glucose 111 mg/dl (74-106) H 02/23/18 06:40 Calcium 7.2 mg/dl (8.4-10.2) L 02/23/18 06:40 Total Bilirubin < 0.5 mg/dl (0.2-1.0) 02/23/18 06:40 AST 15 U/L (10-42) 02/23/18 06:40 ALT 9 U/L (10-40) L 02/23/18 06:40 Alkaline Phosphatase 129 U/L (32-92) H 02/23/18 06:40 Total Protein 6.0 g/dl (6.4-8.3) L 02/23/18 06:40 Albumin 2.1 g/dl (3.5-5.0) L 02/23/18 06:40 CARDIAC ENZYMES Troponin I 0.03 ng/ml (0.00-0.06) 02/15/18 16:55 Microbiology 02/18/18 11:40 Blood - Peripheral Venous Blood Culture - Preliminary NO GROWTH OBTAINED AFTER 96 HOURS, INCUBATION TO CONTINUE FOR 1 DAYS. 02/18/18 11:40 Blood - Peripheral Venous Blood Culture - Preliminary NO GROWTH OBTAINED AFTER 96 HOURS, INCUBATION TO CONTINUE FOR 1 DAYS. 02/15/18 19:00 Blood - Peripheral Venous Blood Culture - Final NO GROWTH AFTER 5 DAYS INCUBATION 02/15/18 19:00 Blood - Peripheral Venous Blood Culture - Final NO GROWTH AFTER 5 DAYS INCUBATION 02/16/18 16:30 Ulcer Gram Stain - Final 02/16/18 16:30 Ulcer Wound Culture - Final Pseudomonas Aeruginosa#2 Pseudomonas Aeruginosa Mr S Aureus Enterococcus Faecalis Escherichia Coli Esbl [employer] Therapy 02/15/18 19:12 Urine - Urine - Catheterized Urine Culture - Final NO GROWTH OBTAINED Assessment: This is an 87 year old male with PMHx of NIDDM, metastatic prostate cancer on Xgeva, PE s/p IVC filter (on Lovenox), SBO, carotid stenosis (on Aggrenox), anemia (requiring PRBC transfusion 1 month ago), who presented to the ED by pcp for low Hgb and dizziness, fatigue, and subjective fever. Plan: 1) Symptomatic anemia - S/p PRBC transfusion - Received 4/5 Venofer yesterday: instructed RN to rotate IV site between doses - Stool for occult blood negative - Continue to monitor Hgb 2) Fevers - Afebrile now - Source? back wound? Chest x-ray negative, blood cultures with NGTD - Thoracic x-ray with degenerative chanes with wedging, partial collapse of t12 and L1 with kyphoplasty, previous fusions - Wound culture polymicrobial - Elevated ESR, CRP - Continue Cefepime - Continue Vancomycin - Appreciate ID consult 3) Chronic pressure ulcer upper back - Continue Santyl daily - Avoid pressure to that area - Appreciate surgery consult 4) Metastatic prostate cancer - On Xgeva monthly 5) Px of PE - Continue Lovenox 70mg sq bid 6) Hx of carotid stenosis - reports the patient has been on Aggrenox for 15 years - Continue Aggrenox 7) DM - Levemir 12u sq am - BGM ACHS - ISS ACHS 8) F/E/N: - Diabetic diet - Monitor electrolytes - Hyperkalemia: kayexelate give. Monitor, recheck this afternoon 9) Prophylaxis: - On full dose Lovenox 10) Dispo: - Once condition improves CODE STATUS: FULL CODE Visit type - Emergency Visit Emergency Visit: Yes ED Registration Date: 02/18/18 Care time: The patient presented to the Emergency Department on the above date and was hospitalized for further evaluation of their emergent condition. - New Patient This patient is new to me today: Yes Date on this admission: 02/23/18 - Critical Care Critical Care patient: No
[2018-02-23 10:01] LABS: BILIRUBIN,TOTAL < 0.5 mg/dl (0.2-1.0)
[2018-02-23] MEDS: VENLAFAXINE HCL 75 MG TABLET PO SCH (10:49)
[2018-02-23] MEDS ORDERED: SODIUM POLYSTYRENE SULFONATE 15 GM/60 ML BOTTLE PO ONE (11:00)
[2018-02-23] MEDS ORDERED: INSULIN (NOVOLOG) ASPART 100 UNITS/ML 10ML VIAL ONE (11:53)
[2018-02-23] MEDS: morphine SULFATE 10 MG/5 ML UNIT-DOSE CUP PO PRN ×3 (13:24→23:25)
[2018-02-23] MEDS: VANCOMYCIN 1 GRAM (PRE-DOCKED) 1,000 MG/250 ML BAG IVPB SCH (16:22)
[2018-02-23 17:02] LABS: ALBUMIN 2.3 g/dl (3.5-5.0); ALK PHOS 142 U/L (32-92); ANION GAP 7 (8-16); BLOOD UREA NITROGEN 24 mg/dl (7-18); CALCIUM 7.5 mg/dl (8.4-10.2); CHLORIDE 110 mmol/L (98-107); CO2 22 mmol/L (22-28); GLUCOSE,RANDOM 135 mg/dl (74-106); POTASSIUM 5.8 mmol/L (3.5-5.1); SGOT/AST 20 U/L (10-42); SGPT/ALT 11 U/L (10-40); SODIUM 139 mmol/L (136-145); TOT PROT 6.6 g/dl (6.4-8.3)
[2018-02-23 17:11] LABS: CREATININE 0.8 mg/dl (0.6-1.3)
[2018-02-23 17:18] LABS: BILIRUBIN,TOTAL < 0.5 mg/dl (0.2-1.0)
[2018-02-23] MEDS: ACETAMINOPHEN 325 MG TABLET (FP) PO PRN (20:04)
[2018-02-23] MEDS: PREGABALIN 25 MG CAPSULE PO SCH (21:24)
[2018-02-23] MEDS: DOCUSATE SODIUM 100 MG CAPSULE (FP) PO SCH (21:25)
[2018-02-24] MEDS: CEFEPIME HCL/D5W 1 GM/50 ML BAG IVPB SCH ×3 (01:12→17:14)
[2018-02-24] MEDS: morphine SULFATE 10 MG/5 ML UNIT-DOSE CUP PO PRN ×3 (04:53→11:00)
[2018-02-24] MEDS: ACETAMINOPHEN 325 MG TABLET (FP) PO PRN (04:54)
[2018-02-24] MEDS: PREGABALIN 25 MG CAPSULE PO SCH ×3 (06:22→21:43)
[2018-02-24] MEDS: INSULIN SLIDING SCALE (NOVOLOG) 1 VIAL SQ SCH ×4 (07:13→22:45)
[2018-02-24 08:24] LABS: ALBUMIN 2.3 g/dl (3.5-5.0); ALK PHOS 136 U/L (32-92); ANION GAP 4 (8-16); BILIRUBIN,TOTAL 0.4 mg/dl (0.2-1.0); BLOOD UREA NITROGEN 24 mg/dl (7-18); CALCIUM 7.4 mg/dl (8.4-10.2); CHLORIDE 108 mmol/L (98-107); CO2 23 mmol/L (22-28); CREATININE 0.7 mg/dl (0.6-1.3); GLUCOSE,RANDOM 124 mg/dl (74-106); PHOSPHOROUS 1.6 mg/dl (2.5-4.6); POTASSIUM 5.5 mmol/L (3.5-5.1); SGOT/AST 17 U/L (10-42); SGPT/ALT 12 U/L (10-40); SODIUM 135 mmol/L (136-145); TOT PROT 6.5 g/dl (6.4-8.3)
[2018-02-24 08:33] LABS: HEMATOCRIT 27.3 % (35.4-49); MCH 31.2 pg (25.7-33.7); MEAN CELL VOLUME 94.3 fl (80-96); MEAN PLT VOLUME 6.9 fl (7.5-11.1); PLATELET COUNT 189 K/MM3 (134-434); RDW 18.4 % (11.9-15.9); WHITE BLOOD COUNT 7.1 K/mm3 (4.0-10.8)
[2018-02-24] MEDS: AMINO ACIDS/PROTEIN HYDROLYS 30 ML LIQUID.PKT PO SCH ×2 (09:03→17:14)
[2018-02-24] MEDS: INSULIN DETEMIR 100 UNITS/ML MDV SQ SCH (09:04)
[2018-02-24] MEDS ORDERED: PT OWN MED DRAWER 7, Y5N ONE (09:12)
[2018-02-24] MEDS: PANTOPRAZOLE 40 MG TABLET (FP) PO SCH (09:18)
[2018-02-24] MEDS: morphine SO4 SUSTAINED ACTING 30 MG TABLET.SA PO SCH ×2 (09:18→21:44)
[2018-02-24] MEDS: LACTOBACILLUS ACIDOPHILUS 1 TABLET PO SCH (09:19)
[2018-02-24] MEDS: VENLAFAXINE HCL 75 MG TABLET PO SCH (09:20)
[2018-02-24] MEDS: ENOXAPARIN NA (PORCINE) 80 MG/0.8 ML DISP.SYRIN SQ SCH ×2 (09:21→21:43)
[2018-02-24] MEDS: COLLAGENASE CLOSTRIDIUM HIST. 30 GRAMS TUBE TP SCH (09:21)
[2018-02-24] MEDS: POLYETHYLENE GLYCOL 3350 119 GM BTL PO SCH (09:21)
[2018-02-24] MEDS: KETOROLAC TROMETHAMINE 0.5% 5 ML BOTTLE OPTHALMIC OU SCH ×4 (09:21→21:43)
[2018-02-24] MEDS: prednisoLONE ACETATE 1% OPHTH SUSP 5 ML BOTTLE OU SCH ×4 (09:21→21:45)
[2018-02-24] MEDS ORDERED: SODIUM PHOSPHATE - 21 MM in SODIUM CHLORIDE 250 ML IVPB ONE (09:30)
[2018-02-24] MEDS: MULTIVITAMINS (DAILY MVI) TABLET (FP) PO SCH (09:39)
[2018-02-24] MEDS: ASPIRIN/DIPYRIDAMOLE 25 MG/200 MG CAPSULE (FP) PO SCH ×2 (09:39→21:43)
--- NOTE | 2018-02-24 09:53 | PN ---
Physical Exam: SUBJECTIVE: Patient seen and examined, reports feeling well, denies any tactile fever, reports pain is 2/10 to back, patient wants to go home OBJECTIVE: Patient is a 87 year old male with PMHx of NIDDM, metastatic prostate cancer on Xgeva, PE s/p IVC filter (on Lovenox), SBO, carotid stenosis (on Aggrenox), anemia (requiring PRBC transfusion 01/22). Patient was admitted from the emergency department for sepsis secondary to polymicrobial decubiti and severe anemia. Vital Signs Period Temp Pulse Resp BP Sys/Kim Pulse Ox Last 24 Hr 97.8 F-98.7 F 71-80 17-18 118-121/48-52 93-97 GENERAL: The patient is awake, alert, and fully oriented, in no acute distress. HEAD: Normal with no signs of trauma. EYES: PERRL, extraocular movements intact, sclera anicteric, conjunctiva clear. No ptosis. ENT: Ears normal, nares patent, oropharynx clear without exudates, moist mucous membranes. NECK: Trachea midline, full range of motion, supple. LUNGS: Breath sounds equal, clear to apexes diminished to bases, no wheezes, no crackles, no accessory muscle use. HEART: Regular rate and rhythm, S1, S2 without murmur, rub or gallop. ABDOMEN: Soft, nontender, nondistended, normoactive bowel sounds, no guarding, no rebound, no hepatosplenomegaly, no masses. EXTREMITIES: 2+ pulses, warm, well-perfused, no edema. NEUROLOGICAL: Cranial nerves II through XII grossly intact. Normal speech, shuffle gait noted with walker bserved. PSYCH: Normal mood, normal affect. SKIN: Warm, dry, normal turgor, no rashes or lesions noted, stage III decubti 2.5 x 2.5 cm with slough to lumbar spine Laboratory Results - last 24 hr 02/23/18 02/23/18 02/23/18 06:40 11:49 16:00 WBC RBC Hgb Hct MCV MCH MCHC RDW Plt Count MPV Sodium 138 139 Potassium 5.8 H 5.8 H Chloride 108 H 110 H Carbon Dioxide 24 22 Anion Gap 6 L 7 L BUN 26 H 24 H Creatinine 0.8 0.8 Creat Clearance w eGFR > 60 > 60 POC Glucometer 174 Random Glucose 111 H 135 H D Calcium 7.2 L 7.5 L Phosphorus Magnesium 1.8 Total Bilirubin < 0.5 < 0.5 AST 15 20 D ALT 9 L 11 D Alkaline Phosphatase 129 H 142 H Total Protein 6.0 L 6.6 Albumin 2.1 L 2.3 L 02/23/18 02/23/18 02/24/18 16:18 21:05 06:19 WBC RBC Hgb Hct MCV MCH MCHC RDW Plt Count MPV Sodium Potassium Chloride Carbon Dioxide Anion Gap BUN Creatinine Creat Clearance w eGFR POC Glucometer 137 143 110 Random Glucose Calcium Phosphorus Magnesium Total Bilirubin AST ALT Alkaline Phosphatase Total Protein Albumin 02/24/18 02/24/18 07:40 07:40 WBC 7.1 RBC 2.90 L Hgb 9.0 L D Hct 27.3 L MCV 94.3 MCH 31.2 MCHC 33.0 RDW 18.4 H Plt Count 189 MPV 6.9 L Sodium 135 L Potassium 5.5 H Chloride 108 H Carbon Dioxide 23 Anion Gap 4 L BUN 24 H Creatinine 0.7 Creat Clearance w eGFR > 60 POC Glucometer Random Glucose 124 H Calcium 7.4 L Phosphorus 1.6 L Magnesium Total Bilirubin 0.4 AST 17 ALT 12 Alkaline Phosphatase 136 H Total Protein 6.5 Albumin 2.3 L Active Medications Generic Name Dose Route Start Last Admin Trade Name Freq PRN Reason Stop Dose Admin Acetaminophen 650 mg 02/16/18 16:32 02/24/18 04:54 Tylenol - PO 650 mg Q6H PRN Administration FEVER Amino Acids 30 ml 02/18/18 17:30 02/24/18 09:03 Prosource No Carb Liquid Pkt PO 30 ml BID@0800,1730 MANNY Administration Collagenase 1 applic 02/16/18 10:00 02/24/18 09:21 Santyl - TP 1 applic DAILY MANNY Administration Dipyridamole/Aspirin 1 combo 02/16/18 10:00 02/24/18 09:39 Aggrenox - PO 1 combo BID MANNY Administration Docusate Sodium 300 mg 02/15/18 22:00 02/23/18 21:25 Colace - PO 300 mg HS MANNY Administration Enoxaparin Sodium 70 mg 02/16/18 07:59 02/24/18 09:21 Lovenox - SQ 70 mg BID MANNY Administration Cefepime HCl 1 gm in 50 mls @ 100 mls/hr 02/20/18 07:44 02/24/18 01:12 Maxipime 1 Gm Premix Ivpb IVPB 100 mls/hr Q8H-IV MANNY Administration Protocol Sodium Phosphate 21 mm/ Sodium 257 mls @ 64.25 mls/hr 02/24/18 09:30 09:39 Chloride IVPB 02/24/18 13:29 64.25 mls/hr ONCE ONE Administration 21 MM/4 HR Insulin Aspart 1 vial 02/16/18 22:00 02/24/18 07:13 Novolog Vial Sliding Scale - SQ Not Given ACHS MANNY Protocol Insulin Detemir 12 units 02/16/18 07:00 02/24/18 09:04 Levemir Vial SQ 12 units AM MANNY Administration Ketorolac Tromethamine 1 drop 02/19/18 18:00 02/24/18 09:21 Ketorolac Tromethamine OU 1 drop QID MANNY Administration Lactobacillus Acidophilus 1 tab 02/19/18 10:00 02/24/18 09:19 Bacid - PO 1 tab DAILY MANNY Administration Morphine Sulfate 60 mg 02/15/18 22:00 02/24/18 09:18 Ms Contin - PO 60 mg BID MANNY Administration Morphine Sulfate 10 mg 02/19/18 07:49 02/24/18 09:18 Morphine 10 Mg/5 Ml Liquid PO 10 mg Q2H PRN Administration PAIN LEVEL 7 - 10 Multivitamins/Minerals/Vitamin C 1 tab 02/16/18 10:00 02/24/18 09:39 Tab-A-Vit - PO 1 tab DAILY MANNY Administration Pantoprazole Sodium 40 mg 02/16/18 10:00 02/24/18 09:18 Protonix - PO 40 mg DAILY MANNY Administration Polyethylene Glycol 17 gm 02/16/18 10:00 02/24/18 09:21 Miralax (For Daily Use) - PO 17 grams DAILY MANNY Administration Prednisolone Acetate 1 drop 02/15/18 22:00 02/24/18 09:21 Pred Forte 1% - OU 1 drop QID MANNY Administration Pregabalin 150 mg 02/23/18 21:13 02/24/18 06:22 Lyrica - PO 150 mg TID MANNY Administration Vancomycin HCl 1,000 mg 02/16/18 16:30 02/23/18 16:22 Vancomycin (Pre-Docked) IVPB 1,000 mg DAILY@1630 MANNY Administration Protocol Venlafaxine HCl 75 mg 02/22/18 11:30 02/24/18 09:20 Effexor - PO 75 mg DAILY MANNY Administration Microbiology 02/18/18 11:40 Blood - Peripheral Venous Blood Culture - Final NO GROWTH AFTER 5 DAYS INCUBATION 02/18/18 11:40 Blood - Peripheral Venous Blood Culture - Final NO GROWTH AFTER 5 DAYS INCUBATION 02/15/18 19:00 Blood - Peripheral Venous Blood Culture - Final NO GROWTH AFTER 5 DAYS INCUBATION 02/15/18 19:00 Blood - Peripheral Venous Blood Culture - Final NO GROWTH AFTER 5 DAYS INCUBATION 02/16/18 16:30 Ulcer Gram Stain - Final 02/16/18 16:30 Ulcer Wound Culture - Final Pseudomonas Aeruginosa#2 Pseudomonas Aeruginosa Mr S Aureus Enterococcus Faecalis Escherichia Coli Esbl [place] 02/15/18 19:12 Urine - Urine - Catheterized Urine Culture - Final NO GROWTH OBTAINED IMAGING chest xray: no signs of infilirate or effusion EKG: nsr 1st degree av block, left axis deviation thoracic xray: degenerative changes, normal kyphosis. ASSESSMENT/PLAN: 1) Symptomatic anemia - S/p PRBC transfusion - Received 5 doses of will require outpatient follow up for repeat iron studies with PCP - Stool for occult blood negative - Continue to monitor Hgb 2) Fevers - Afebrile now - Source? back wound? Chest x-ray negative, blood cultures with NGTD - Thoracic x-ray with degenerative chanes with wedging, partial collapse of t12 and L1 with kyphoplasty, previous fusions pending ct scan of lumbar/thoracic spine - Wound culture polymicrobial - Elevated ESR, CRP - Continue Cefepime - Continue Vancomycin - Appreciate ID consult 3) Chronic pressure ulcer upper back - Continue Santyl daily - Avoid pressure to that area - Appreciate surgery consult 4) Metastatic prostate cancer - On Xgeva monthly 5) Px of PE - Continue Lovenox 70mg sq bid 6) Hx of carotid stenosis - reports the patient has been on Aggrenox for 15 years - Continue Aggrenox 7) DM - Levemir 12u sq am - BGM ACHS - ISS ACHS 8) F/E/N: - Diabetic diet - Monitor electrolytes - Hyperkalemia: kayexelate given 02/24/18. Monitor 9) Prophylaxis: - On full dose Lovenox 10) Dispo: - Once condition improves CODE STATUS: FULL CODE Visit type - Emergency Visit Emergency Visit: Yes ED Registration Date: 02/18/18 Care time: The patient presented to the Emergency Department on the above date and was hospitalized for further evaluation of their emergent condition. - New Patient This patient is new to me today: No - Critical Care Critical Care patient: No - Discharge Referral Referred to [facility] Med P.C.: No
--- NOTE | 2018-02-24 10:35 | PN ---
Progress Note, Physician History of Present Illness: Awake, alert. OOB in chair Less back pain Ambulating with assistance Denies fever/ chills Afebrile WBC WNL - Current Medication List Current Medications: Active Medications Acetaminophen (Tylenol -) 650 mg PO Q6H PRN PRN Reason: FEVER Last Admin: 02/24/18 04:54 Dose: 650 mg Amino Acids (Prosource No Carb Liquid Pkt) 30 ml PO BID@0800,1730 [facility] Last Admin: 02/24/18 09:03 Dose: 30 ml Collagenase (Santyl -) 1 applic TP DAILY [facility] Last Admin: 02/24/18 09:21 Dose: 1 applic Dipyridamole/Aspirin (Aggrenox -) 1 combo PO BID [facility] Last Admin: 02/24/18 09:39 Dose: 1 combo Docusate Sodium (Colace -) 300 mg PO HS [facility] Last Admin: 02/23/18 21:25 Dose: 300 mg Enoxaparin Sodium (Lovenox -) 70 mg SQ BID [facility] Last Admin: 02/24/18 09:21 Dose: 70 mg Cefepime HCl (Maxipime 1 Gm Premix Ivpb) 1 gm in 50 mls @ 100 mls/hr IVPB Q8H- IV [facility] PRN Reason: Protocol Last Admin: 02/24/18 01:12 Dose: 100 mls/hr Sodium Phosphate 21 mm/ Sodium (Chloride) 257 mls @ 64.25 mls/hr IVPB ONCE ONE PRN Reason: 21 MM/4 HR Stop: 02/24/18 13:29 Last Admin: 02/24/18 09:39 Dose: 64.25 mls/hr Insulin Aspart (Novolog Vial Sliding Scale -) 1 vial SQ ACHS [facility] PRN Reason: Protocol Last Admin: 02/24/18 07:13 Dose: Not Given Insulin Detemir (Levemir Vial) 12 units SQ AM [facility] Last Admin: 02/24/18 09:04 Dose: 12 units Ketorolac Tromethamine (Ketorolac Tromethamine) 1 drop OU QID [facility] Last Admin: 02/24/18 09:21 Dose: 1 drop Lactobacillus Acidophilus (Bacid -) 1 tab PO DAILY [facility] Last Admin: 02/24/18 09:19 Dose: 1 tab Morphine Sulfate (Ms Contin -) 60 mg PO BID [facility] Last Admin: 02/24/18 09:18 Dose: 60 mg Morphine Sulfate (Morphine 10 Mg/5 Ml Liquid) 10 mg PO Q2H PRN PRN Reason: PAIN LEVEL 7 - 10 Last Admin: 02/24/18 09:18 Dose: 10 mg Multivitamins/Minerals/Vitamin C (Tab-A-Vit -) 1 tab PO DAILY [facility] Last Admin: 02/24/18 09:39 Dose: 1 tab Pantoprazole Sodium (Protonix -) 40 mg PO DAILY [facility] Last Admin: 02/24/18 09:18 Dose: 40 mg Polyethylene Glycol (Miralax (For Daily Use) -) 17 gm PO DAILY [facility] Last Admin: 02/24/18 09:21 Dose: 17 grams Prednisolone Acetate (Pred Forte 1% -) 1 drop OU QID [facility] Last Admin: 02/24/18 09:21 Dose: 1 drop Pregabalin (Lyrica -) 150 mg PO TID [facility] Last Admin: 02/24/18 06:22 Dose: 150 mg Vancomycin HCl (Vancomycin (Pre-Docked)) 1,000 mg IVPB DAILY@1630 [facility] PRN Reason: Protocol Last Admin: 02/23/18 16:22 Dose: 1,000 mg Venlafaxine HCl (Effexor -) 75 mg PO DAILY [facility] Last Admin: 02/24/18 09:20 Dose: 75 mg - Objective Vital Signs: Vital Signs Temperature 97.8 F 02/24/18 05:42 Pulse Rate 71 02/24/18 05:42 Respiratory Rate 18 02/24/18 09:00 Blood Pressure 121/48 02/24/18 05:42 O2 Sat by Pulse Oximetry (%) 97 02/24/18 09:00 Constitutional: Yes: No Distress, Thin Eyes: Yes: Conjunctiva Clear Cardiovascular: Yes: Regular Rate and Rhythm, S1, S2 Respiratory: Yes: CTA Bilaterally Gastrointestinal: Yes: Normal Bowel Sounds, Soft. No: Tenderness Integumentary: Yes: Other (minimal serous wound drainge noted on dressing) Labs: CBC, BMP 02/24/18 07:40 02/24/18 07:40 INR, PTT INR 1.27 (0.82-1.09) H 02/15/18 16:55 Assessment/Plan Fever ? source ? back wound temps down wound c/s polymicrobial Metastatic prostate ca Non- healing back ulcer ? underlying osteomyelitis Hx ESBL UTI Repeat Blood c/s , CXR (-) Xray reviewed with radiologist. No evidence of bone erosion Continue vancomycin/ cefepime Discussed with . Will obtain CT spine to further evaluate for osteomyelitis Local wound care Discussed with patient's by phone
[2018-02-24] MEDS ORDERED: ONDANSETRON 4 MG/2 ML VIAL IVPUSH PRN (11:29)
[2018-02-24] MEDS ORDERED: ERGOCALCIFEROL (VITAMIN D2) 50,000 UNIT CAPSULE (FP) PO SCH (12:41)
[2018-02-24 15:11] VITALS: BMI 21.5
[2018-02-24] MEDS: VANCOMYCIN 1 GRAM (PRE-DOCKED) 1,000 MG/250 ML BAG IVPB SCH (16:52)
[2018-02-24] MEDS ORDERED: morphine SULFATE IMMEDIATE RELEASE 30 MG TAB PO PRN (18:35)
[2018-02-24] MEDS: DOCUSATE SODIUM 100 MG CAPSULE (FP) PO SCH (21:42)
[2018-02-25] MEDS: CEFEPIME HCL/D5W 1 GM/50 ML BAG IVPB SCH (02:35)
[2018-02-25] MEDS: PREGABALIN 50 MG CAPSULE PO SCH ×2 (06:40→14:47)
[2018-02-25] MEDS: INSULIN DETEMIR 100 UNITS/ML MDV SQ SCH (07:50)
[2018-02-25] MEDS: AMINO ACIDS/PROTEIN HYDROLYS 30 ML LIQUID.PKT PO SCH (08:00)
[2018-02-25] MEDS: MULTIVITAMINS (DAILY MVI) TABLET (FP) PO SCH (10:00)
[2018-02-25] MEDS: LACTOBACILLUS ACIDOPHILUS 1 TABLET PO SCH (10:00)
[2018-02-25] MEDS: VENLAFAXINE HCL 75 MG TABLET PO SCH (10:00)
[2018-02-25] MEDS: COLLAGENASE CLOSTRIDIUM HIST. 30 GRAMS TUBE TP SCH (10:00)
[2018-02-25] MEDS: PANTOPRAZOLE 40 MG TABLET (FP) PO SCH (10:00)
[2018-02-25] MEDS: prednisoLONE ACETATE 1% OPHTH SUSP 5 ML BOTTLE OU SCH ×2 (10:00→14:30)
[2018-02-25] MEDS: KETOROLAC TROMETHAMINE 0.5% 5 ML BOTTLE OPTHALMIC OU SCH ×2 (10:00→14:30)
[2018-02-25] MEDS: morphine SO4 SUSTAINED ACTING 30 MG TABLET.SA PO SCH (10:00)
[2018-02-25] MEDS: ENOXAPARIN NA (PORCINE) 80 MG/0.8 ML DISP.SYRIN SQ SCH (10:05)
[2018-02-25] MEDS: ASPIRIN/DIPYRIDAMOLE 25 MG/200 MG CAPSULE (FP) PO SCH (10:13)
[2018-02-25] MEDS: POLYETHYLENE GLYCOL 3350 119 GM BTL PO SCH (10:35)
[2018-02-25] MEDS ORDERED: CIPROFLOXACIN 250 MG TABLET (RESTRICTED TO ID) PO SCH (11:00)
[2018-02-25] MEDS ORDERED: SULFAMETHOXAZOLE/TRIMETHOPRIM 800MG/160MG D.S. TABLET PO SCH (11:00)
--- NOTE | 2018-02-25 11:04 | PN ---
Progress Note, Physician History of Present Illness: Awake, alert. Supine in bed Less back pain Ambulating with assistance Denies fever/ chills Afebrile WBC WNL - Current Medication List Current Medications: Active Medications Acetaminophen (Tylenol -) 650 mg PO Q6H PRN PRN Reason: FEVER Last Admin: 02/24/18 04:54 Dose: 650 mg Amino Acids (Prosource No Carb Liquid Pkt) 30 ml PO BID@0800,1730 [facility] Last Admin: 02/24/18 17:14 Dose: 30 ml Ciprofloxacin (Cipro (Restricted To Id)) 250 mg PO BID [facility] Collagenase (Santyl -) 1 applic TP DAILY [facility] Last Admin: 02/24/18 09:21 Dose: 1 applic Dipyridamole/Aspirin (Aggrenox -) 1 combo PO BID [facility] Last Admin: 02/24/18 21:43 Dose: 1 combo Docusate Sodium (Colace -) 300 mg PO HS [facility] Last Admin: 02/24/18 21:42 Dose: 300 mg Enoxaparin Sodium (Lovenox -) 70 mg SQ BID [facility] Last Admin: 02/24/18 21:43 Dose: 70 mg Ergocalciferol (Drisdol -) 50,000 unit PO Q7D@1000 [facility] Insulin Aspart (Novolog Vial Sliding Scale -) 1 vial SQ ACHS [facility] PRN Reason: Protocol Last Admin: 02/24/18 22:45 Dose: 2 units Insulin Detemir (Levemir Vial) 12 units SQ AM [facility] Last Admin: 02/24/18 09:04 Dose: 12 units Ketorolac Tromethamine (Ketorolac Tromethamine) 1 drop OU QID [facility] Last Admin: 02/24/18 21:43 Dose: 1 drop Lactobacillus Acidophilus (Bacid -) 1 tab PO DAILY [facility] Last Admin: 02/24/18 09:19 Dose: 1 tab Morphine Sulfate (Ms Contin -) 60 mg PO BID [facility] Last Admin: 02/24/18 21:44 Dose: 60 mg Morphine Sulfate (Morphine 10 Mg/5 Ml Liquid) 10 mg PO Q2H PRN PRN Reason: PAIN LEVEL 7 - 10 Last Admin: 02/24/18 11:00 Dose: 10 mg Multivitamins/Minerals/Vitamin C (Tab-A-Vit -) 1 tab PO DAILY [facility] Last Admin: 02/24/18 09:39 Dose: 1 tab Ondansetron HCl (Zofran Injection) 4 mg IVPUSH Q6H PRN PRN Reason: NAUSEA Last Admin: 02/24/18 11:51 Dose: 4 mg Pantoprazole Sodium (Protonix -) 40 mg PO DAILY [facility] Last Admin: 02/24/18 09:18 Dose: 40 mg Polyethylene Glycol (Miralax (For Daily Use) -) 17 gm PO DAILY [facility] Last Admin: 02/24/18 09:21 Dose: 17 grams Prednisolone Acetate (Pred Forte 1% -) 1 drop OU QID [facility] Last Admin: 02/24/18 21:45 Dose: 1 drop Pregabalin (Lyrica -) 150 mg PO TID [facility] Last Admin: 02/25/18 06:40 Dose: 150 mg Trimethoprim/Sulfamethoxazole (Bactrim Ds -) 1 each PO BID [facility] Venlafaxine HCl (Effexor -) 75 mg PO DAILY [facility] Last Admin: 02/24/18 09:20 Dose: 75 mg - Objective Vital Signs: Vital Signs Temperature 98.4 F 02/25/18 06:00 Pulse Rate 72 02/25/18 06:00 Respiratory Rate 18 02/25/18 06:00 Blood Pressure 115/47 02/25/18 06:00 O2 Sat by Pulse Oximetry (%) 95 02/25/18 06:04 Constitutional: Yes: No Distress, Thin Eyes: Yes: Conjunctiva Clear Cardiovascular: Yes: Regular Rate and Rhythm, S1, S2 Respiratory: Yes: CTA Bilaterally Gastrointestinal: Yes: Normal Bowel Sounds, Soft. No: Tenderness Edema: No Integumentary: Yes: Other (back ulcer superficial. No drainage) Labs: CBC, BMP 02/24/18 07:40 02/24/18 07:40 INR, PTT INR 1.27 (0.82-1.09) H 02/15/18 16:55 Assessment/Plan Fever ? source ? back wound temps down wound c/s polymicrobial Metastatic prostate ca Non- healing back ulcer Hx ESBL UTI Repeat Blood c/s , CXR (-) CT scan reviewed with radiologist. No evidence of osteomyelitis. Discontinue vancomycin/ cefepime Start Bactrim DS po bid + Cipro 250mg po bid x 7d Discussed with . Local wound care Outpatient referral to wound care center
[2018-02-25] MEDS ORDERED: INSULIN DETEMIR 100 UNITS/ML MDV SQ ONE (11:11)
[2018-02-25] MEDS ORDERED: PT OWN MED DRAWER 7, Y5N ONE (11:29)
--- NOTE | 2018-02-25 11:29 | DS ---
Physical Exam: SUBJECTIVE: Patient seen and examinedpatient is Mynor thrombosis patient with walker, patient denies any chest pain or shortness of breath, patient is ready for discharge. OBJECTIVE: patient is a 87 year old male with PMHx of NIDDM, metastatic prostate cancer on Xgeva, PE s/p IVC filter (on Lovenox), SBO, carotid stenosis (on Aggrenox), anemia (requiring PRBC transfusion 1 month ago), who presented to the ED by pcp for low Hgb and dizziness, fatigue, and subjective fever. The patient is a poor historian. The states the patient was in good health on and then yesterday on 02/15 she noticed he was more lethargic and complained of dizziness. The patient's also reports that the patient recently started seeing Dr. Glez for his wound on his back, first appointment was on 02/14. She reports that the wound is unchanged in the past few weeks. The patient denies any headache, chest pain, lower extremity pain/swelling, urinary symptoms, cough. ER course was notable for: (1) Temp 100, pulse 80, BP 104/41, resp 20, O2 100% on RA (2) Hgb 6.8 (3) Na 134, K 5.2 (4) Chest X-ray with no acute pathology Vital Signs Period Temp Pulse Resp BP Sys/Kim Pulse Ox Last 24 Hr 98.0 F-98.8 F 68-76 17-18 96-115/47-61 90-98 PHYSICAL EXAM GENERAL: The patient is awake, alert, and fully oriented, in no acute distress. HEAD: Normal with no signs of trauma. EYES: PERRL, extraocular movements intact, sclera anicteric, conjunctiva clear. No ptosis. ENT: Ears normal, nares patent, oropharynx clear without exudates, moist mucous membranes. NECK: Trachea midline, full range of motion, supple. LUNGS: Breath sounds equal, clear to apexes diminished to bases, no wheezes, no crackles, no accessory muscle use. HEART: Regular rate and rhythm, S1, S2 without murmur, rub or gallop. ABDOMEN: Soft, nontender, nondistended, normoactive bowel sounds, no guarding, no rebound, no hepatosplenomegaly, no masses. EXTREMITIES: 2+ pulses, warm, well-perfused, no edema. NEUROLOGICAL: Cranial nerves II through XII grossly intact. Normal speech, shuffle gait noted with walker bserved. PSYCH: Normal mood, normal affect. SKIN: Warm, dry, normal turgor, no rashes or lesions noted, stage III decubti 2.5 x 2.5 cm with slough to lumbar spine LABS CBC WBC 7.1 K/mm3 (4.0-10.8) 02/24/18 07:40 RBC 2.90 M/mm3 (4.00-5.60) L 02/24/18 07:40 Hgb 9.0 GM/dl (11.7-16.9) L D 02/24/18 07:40 Hct 27.3 % (35.4-49) L 02/24/18 07:40 MCV 94.3 fl (80-96) 02/24/18 07:40 MCH 31.2 pg (25.7-33.7) 02/24/18 07:40 MCHC 33.0 g/dl (32.0-35.9) 02/24/18 07:40 RDW 18.4 % (11.9-15.9) H 02/24/18 07:40 Plt Count 189 K/MM3 (134-434) 02/24/18 07:40 MPV 6.9 fl (7.5-11.1) L 02/24/18 07:40 Neutrophils % 71.1 % (42.8-82.8) 02/23/18 06:40 Lymphocytes % 13.2 % (8-40) 02/23/18 06:40 Monocytes % 10.9 % (3.8-10.2) H 02/23/18 06:40 Eosinophils % 4.3 % (0-4.5) 02/23/18 06:40 Basophils % 0.5 % (0-2.0) 02/23/18 06:40 Platelet Estimate Adequate 02/17/18 17:50 Platelet Comment Rare giant plts 02/15/18 16:55 Polychromasia 1+ 02/15/18 16:55 Poikilocytosis 1+ 02/15/18 16:55 Anisocytosis 2+ 02/17/18 17:50 Macrocytosis 1+ 02/15/18 16:55 Tear Drop Cells 1+ 02/17/18 17:50 Ovalocytes Rare 02/15/18 16:55 ESR 72 mm/hr (0-20) H 02/22/18 07:20 CMP Sodium 135 mmol/L (136-145) L 02/24/18 07:40 Potassium 5.5 mmol/L (3.5-5.1) H 02/24/18 07:40 Chloride 108 mmol/L (98-107) H 02/24/18 07:40 Carbon Dioxide 23 mmol/L (22-28) 02/24/18 07:40 Anion Gap 4 (8-16) L 02/24/18 07:40 BUN 24 mg/dl (7-18) H 02/24/18 07:40 Creatinine 0.7 mg/dl (0.6-1.3) 02/24/18 07:40 Creat Clearance w eGFR > 60 (>60) 02/24/18 07:40 POC Glucometer 110 UNITS (80-120) 02/24/18 06:19 Random Glucose 124 mg/dl (74-106) H 02/24/18 07:40 Lactic Acid 0.9 mmol/L (0.0-2.0) 02/15/18 19:10 Calcium 7.4 mg/dl (8.4-10.2) L 02/24/18 07:40 Phosphorus 1.6 mg/dl (2.5-4.6) L 02/24/18 07:40 Magnesium 1.9 mg/dL (1.8-2.4) 02/24/18 07:30 Total Bilirubin 0.4 mg/dl (0.2-1.0) 02/24/18 07:40 AST 17 U/L (10-42) 02/24/18 07:40 ALT 12 U/L (10-40) 02/24/18 07:40 Alkaline Phosphatase 136 U/L (32-92) H 02/24/18 07:40 Troponin I 0.03 ng/ml (0.00-0.06) 02/15/18 16:55 C-Reactive Protein 7.2 MG/DL (0.00-0.3) H 02/22/18 07:20 Total Protein 6.5 g/dl (6.4-8.3) 02/24/18 07:40 Albumin 2.3 g/dl (3.5-5.0) L 02/24/18 07:40 Microbiology 02/18/18 11:40 Blood - Peripheral Venous Blood Culture - Final NO GROWTH AFTER 5 DAYS INCUBATION 02/18/18 11:40 Blood - Peripheral Venous Blood Culture - Final NO GROWTH AFTER 5 DAYS INCUBATION 02/15/18 19:00 Blood - Peripheral Venous Blood Culture - Final NO GROWTH AFTER 5 DAYS INCUBATION 02/15/18 19:00 Blood - Peripheral Venous Blood Culture - Final NO GROWTH AFTER 5 DAYS INCUBATION 02/16/18 16:30 Ulcer Gram Stain - Final 02/16/18 16:30 Ulcer Wound Culture - Final Pseudomonas Aeruginosa#2 Pseudomonas Aeruginosa Mr S Aureus Enterococcus Faecalis Escherichia Coli Esbl [employer] 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 patient is afebrile,no leukocytosis. patient was treated with cefepime and vancomycin for polymicrobial abx 3) Chronic pressure ulcer upper back, Continued Santyl daily, vascular surgeon Dr Glez consulted - Appreciate surgery consult 4) Metastatic prostate cancer, On Xgeva monthly, will require outpatient follow up 5) Px of PE Continued Lovenox 70mg sq bid 6) Hx of carotid stenosis, reports the patient has been on Aggrenox for 15 years, Continued Aggrenox 7) DM, Levemir 12u sq am, BGM ACHS, ISS ACHS PLAN - discharge home with a VNS with Bactrim and Cipro - Continue santyl to wound and follow-up at wound care clinic - Strict follow-up with primary care physician Dr. Becerra in 1 week Date of Admission:02/18/18 Date of Discharge: 02/25/18 Minutes to complete discharge: 45 Discharge Summary Reason For Visit: ANEMIA Current Active Problems Anemia (Acute) Fever (Acute) Pressure ulcer, back, upper (Acute) Condition: Improved - Instructions Diet, Activity, Other Instructions: - continue cipro and bactrim for the next 7 days - continue all medications as prescribed. - please follow-up at the wound clinic within 2 weeks - please follow-up with your primary care physician Dr. Becerra within 1 week - if Any new or persistent symptoms develop please return to emergency department Referrals: Rey Becerra MD [Primary Care Provider] - Marcell Glez MD [Staff Physician] - Disposition: VNS/HOME HEALTH CARE - Home Medications Comprehensive Discharge Medication List: Ambulatory Orders Aspirin/Dipyridamole [Aggrenox -] 1 combo PO BID 11/11/17 Denosumab [Xgeva -] 1.7 ml SQ MONTHLY 11/11/17 Docusate Sodium [Colace] 300 mg PO HS 11/11/17 Enoxaparin Sodium [Lovenox] 80 mg SQ BID 11/11/17 Morphine Sulfate [Morphine Sulfate ER] 60 mg PO Q12H 11/11/17 Multivitamin [One Daily] 1 each PO DAILY 11/11/17 Pantoprazole Sodium 40 mg PO DAILY 11/11/17 Polyethylene Glycol 3350 [Miralax 119 gm Btl -] 17 gm PO DAILY 11/11/17 Pregabalin [Lyrica -] 150 mg PO Q8H 11/11/17 Sitagliptin Phos/Metformin HCl [Janumet 50-1,000 mg Tablet] 1 each PO BID Venlafaxine HCl ER [Effexor Xr -] 100 mg PO DAILY 11/11/17 Insulin Glargine,Hum.rec.anlog [Lantus] 12 unit SQ AM 01/06/18 Collagenase Clostridium Hist. [Santyl -] 1 applic TP DAILY #1 tube 01/08/18 Collagenase Clostridium Hist. [Santyl] 1 applic TP DAILY #90 oint...g. 02/14/18 Ketorolac Tromethamine 0.5 drop OU QID 02/15/18 Prednisolone 1% Ophthalmic [Pred Forte 1% -] 1 drop OU QID 02/15/18 This patient is new to me today: No Emergency Visit: Yes ED Registration Date: 02/18/18 Care time: The patient presented to the Emergency Department on the above date and was hospitalized for further evaluation of their emergent condition. Critical Care patient: No - Discharge Referral Referred to [facility] No
[2018-02-25 14:11] VITALS: BP 104/46; PULSE 78; TEMP 98.7
[2018-02-25] MEDS: morphine SULFATE 10 MG/5 ML UNIT-DOSE CUP PO PRN (14:15)
[2018-03-03] MEDS ORDERED: ERGOCALCIFEROL (VITAMIN D2) 50,000 UNIT CAPSULE (FP) PO SCH (10:00)
== END 2018-02-25 15:46 | disposition home health service (06) | DRG 871 ==
LOC: FER 16:19 → FM/S 19:07 → OBSVTOIN 02-18 09:49
PROVIDERS: ADMIT Hospitalist; ATTEND Nurse Practitioner Family
PROC: 30233N1 Transfusion of Nonautologous Red Blood Cells into Peripheral Vein, Percutaneous Approach (ICD-10-PCS; principal; 2018-02-15)
PROC: 30233N1 Transfusion of Nonautologous Red Blood Cells into Peripheral Vein, Percutaneous Approach (ICD-10-PCS; 2018-02-17)
DX: A41.9 Sepsis, unspecified organism (principal); L89.103 Pressure ulcer of unspecified part of back, stage 3; D68.59 Other primary thrombophilia; C79.51 Secondary malignant neoplasm of bone; N39.0 Urinary tract infection, site not specified; R64 Cachexia; E10.9 Type 1 diabetes mellitus without complications; D50.9 Iron deficiency anemia, unspecified; C61 Malignant neoplasm of prostate; D63.0 Anemia in neoplastic disease; I25.10 Atherosclerotic heart disease of native coronary artery without angina pectoris; Z86.711 Personal history of pulmonary embolism; Z79.01 Long term (current) use of anticoagulants; K21.9 Gastro-esophageal reflux disease without esophagitis; Z87.891 Personal history of nicotine dependence; I44.0 Atrioventricular block, first degree; B96.5 Pseudomonas (aeruginosa) (mallei) (pseudomallei) as the cause of diseases classified elsewhere; B95.62 Methicillin resistant Staphylococcus aureus infection as the cause of diseases classified elsewhere; B96.29 Other Escherichia coli [E. coli] as the cause of diseases classified elsewhere; B95.2 Enterococcus as the cause of diseases classified elsewhere; E87.5 Hyperkalemia; Z66 Do not resuscitate; Z68.21 Body mass index [BMI] 21.0-21.9, adult; Z86.73 Personal history of transient ischemic attack (TIA), and cerebral infarction without residual deficits
CPT/HCPCS: 36415; 36430; 71045-TC-FY; 72070-TC-FY; 72129-TC; 72132-TC; 80048; 80053; 81003; 81015; 82272; 82962; 83605; 83735; 84100; 84484; 85025; 85027; 85610; 85651; 85730; 86140; 86850; 86900; 86901; 86922; 87040; 87070; 87086; 87186; 87205; 93005; 94010; 97116-GP; 97162-GP; 99285-25; E0186; G0378; G0480; J0131; J1756; P9038; P9058